=== PATIENT | female | born 1970 | race Caucasian/White ===

== ENCOUNTER 2017-10-18 16:01 | Emergency (ER) | payer BC ==
[~2017-10-18] VITALS: Ht 152.4 cm; Wt 104.3 kg
--- OUTSIDE RECORDS SUMMARY | ~2017-10-18 | XMS | Clinical Summary ---
Demographics + + + | Address | [address] | | | [place] [address] | + + + | Home Phone [...] Team Providers + +------+ + | Care Manager Green Name | Role | Phone | + +------+ + | Ashwini Ochoa NP | PP | Unavailable | + +------+ + Source Comments [facility] is fully live on both [facility] and [facility] Allergies + + + + + + | Active Allergy | Reactions | Severity | Noted | Comments | | | | | Date | | + + + + + + | Codeine | Nausea | | 09/21/19 | | | | | | 15 | | + + + + + + Current Medications + + +---------+---------+------+------+-------+ | Prescription | Sig. | Disp. | Refills | Star | End | Statu | | | | | | t | Date | s | | | | | | Date | | | + + +---------+---------+------+------+-------+ | ZIPRASIDONE 80 mg | Take 160 mg by mouth | | | 02/0 | | Activ | | oral capsule | once daily at | | | 5/20 | | e | | | bedtime. | | | 15 | | | + + +---------+---------+------+------+-------+ | TRAMADOL 50 mg | Take 50 mg by mouth | | | 02/1 | | Activ | | oral tablet | every six hours as | | | 6/20 | | e | | | needed. | | | 15 | | | + + +---------+---------+------+------+-------+ | TOPIRAMATE 25 mg | 50 mg two times | | | 02/0 | | Activ | | oral tablet | daily. 2 tabs=50 mg | | | 4/20 | | e | | | BID | | | 15 | | | + + +---------+---------+------+------+-------+ | LORAZEPAM 1 mg | Take 1 mg by mouth | | | 01/2 | | Activ | | oral tablet | every six hours as | | | 2/20 | | e | | | needed (as needed & | | | 15 | | | | | @ HS). | | | | | | + + +---------+---------+------+------+-------+ | LITHIUM CARBONATE | Take 600 mg by mouth | | | 12/3 | | Activ | | 300 mg oral capsule | once daily at | | | 0/20 | | e | | | bedtime. 2 zins=160 | | | 14 | | | | | mg | | | | | | + + +---------+---------+------+------+-------+ | LANSOPRAZOLE 30 mg | Take by mouth once | | | 02/0 | | Activ | | oral | daily at bedtime. | | | 3/20 | | e | | capsule,delayed | | | | 15 | | | | release(DR/EC) | | | | | | | + + +---------+---------+------+------+-------+ | ergocalciferol | Take 50,000 Units by | | | 10/3 | | Activ | | 50,000 unit oral | mouth once a week. | | | 0/20 | | e | | capsule | | | | 14 | | | + + +---------+---------+------+------+-------+ | gabapentin 300 mg | 900 mg once daily at | | | 11/2 | | Activ | | oral capsule | bedtime. | | | 0/20 | | e | | | | | | 14 | | | + + +---------+---------+------+------+-------+ | DULoxetine 60 mg | 60 mg once daily in | | | 11/2 | | Activ | | oral capsule,delayed | the morning. | | | 0/20 | | e | | release(DR/EC) | | | | 14 | | | + + +---------+---------+------+------+-------+ | buPROPion XL 300 | 300 mg once daily in | | | 11/2 | | Activ | | mg oral tablet | the morning. | | | 0/20 | | e | | extended release 24 | | | | 14 | | | | hr | | | | | | | + + +---------+---------+------+------+-------+ | Acetaminophen 500 | Take 500 mg by mouth | | | | | Activ | | mg oral capsule | every six hours as | | | | | e | | | needed. | | | | | | + + +---------+---------+------+------+-------+ | omeprazole | Take 20 mg by mouth | | | | | Activ | | magnesium (PRILOSEC | once daily in the | | | | | e | | OTC) 20 mg oral | morning. | | | | | | | tablet,delayed | | | | | | | | release (DR/EC) | | | | | | | + + +---------+---------+------+------+-------+ | | Take by mouth as | | | | | Activ | | ACETAMINOPHEN/PYRILA | needed. | | | | | e | | M/PAMABROM (PAMPRIN | | | | | | | | MULTI-SYMPTOM ORAL) | | | | | | | + + +---------+---------+------+------+-------+ | PEDIATRIC MULTIVIT | Take by mouth once | | | | | Activ | | COMB #19/FA | daily in the | | | | | e | | (CHILDREN'S | morning. | | | | | | | MULTI-VIT GUMMIES | | | | | | | | ORAL) | | | | | | | + + +---------+---------+------+------+-------+ | CA | Take by mouth three | | | | | Activ | | CARBONATE/VITAMIN | times daily. | | | | | e | | D3/VIT K (VIACTIV | | | | | | | | ORAL) | | | | | | | + + +---------+---------+------+------+-------+ | ASCORBIC ACID | Take by mouth once | | | | | Activ | | (VITAMIN C ORAL) | daily in the | | | | | e | | | morning. | | | | | | + + +---------+---------+------+------+-------+ | silver | Apply to affected | | | | | Activ | | sulfaDIAZINE [...] | | | | | + + +---------+---------+------+------+-------+ | celecoxib 200 mg | Take 1 capsule by | | | 03/2 | | Activ | | oral capsule | mouth once daily in | | | 04/21 | | e | | | the morning. May | | | 15 | | | | | resume 2 weeks after | | | | | | | | surgery | | | | | | + + +---------+---------+------+------+-------+ | senna-docusate | Take 1 tablet by | | | /2 | | Activ | | 8.6-50 mg oral | mouth two times | | | 04/21 | | e | | tabletIndications: | daily. Indications: | | | 15 | | | | constipation | CONSTIPATION | | | | | | + + +---------+---------+------+------+-------+ | polyethylene | Take 17 g by mouth | 119 g | | 03/2 | | Activ | | glycol 17 gram/dose | once daily as | | | 04/21 | | e | | oral | needed. Indications: | | | 15 | | | | powderIndications: | CONSTIPATION | | | | | | | constipation | | | | | | | + + +---------+---------+------+------+-------+ | dexamethasone 4 mg | Take 1 tablet by | 12 | 0 | 03/2 | | Activ | | oral tablet | mouth every six | tablet | | 20 | | e | | | hours. [...] | | | | | + + +---------+---------+------+------+-------+ | tiZANidine 2 mg | Take 1 tablet by | 60 | 0 | 03/2 | | Activ | | oral tablet | mouth three times | tablet | | 20 | | e | | | daily as needed. | | | 15 | | | | | Max: 36 mg / day. | | | | | | + + +---------+---------+------+------+-------+ | pantoprazole 20 mg | | | | 10/1 | | Activ | | oral tablet,delayed | | | | /20 | | e | | release (DR/EC) | | | | 15 | | | + + +---------+---------+------+------+-------+ | ZIPSOR 25 mg oral | | | | 11/0 | | Activ | | capsule | | | | 9/20 | | e | | | | | | 15 | | | + + +---------+---------+------+------+-------+ | cloNIDine HCl 0.1 | | | | 11/0 | | Activ | | mg oral tablet | | | | 6/20 | | e | | | | | | 15 | | | + + +---------+---------+------+------+-------+ | L-METHYLFOLATE 15 | | | | 10/0 | | Activ | | mg oral tablet | | | | 9/20 | | e | | | | | | 15 | | | + + +---------+---------+------+------+-------+ Active Problems + + + | Problem | Noted Date | + + + | Neoplasm of brain (HCC) | 08/20/2014 | + + + Social [...] Pressure | 153/98 | 06/14/2015 1:32 PM PST | + + + + | Pulse | 93 | 06/14/2015 1:32 PM PST | + + + + | Temperature | 36.4 C (97.6 F) | 06/14/2015 1:32 PM PST | + + + + | Respiratory Rate | 16 | 10/28/2014 8:33 AM PDT | + + + + | Oxygen Saturation | 100% | 10/28/2014 8:35 AM PDT | + + + + | Inhaled Oxygen | - | - | | Concentration | | | + + + + | Weight | 103.4 kg (227 lb | 06/14/2015 1:32 PM PST | | | 15.3 oz) | | + + + + | Height | 154.9 cm (5' 1") | 10/25/2014 5:00 AM PDT | + + + + | Body Mass Index | 43.07 | 06/14/2015 1:32 PM PST | + + + + Plan of Treatment + + + + + | Health Maintenance | Due Date | Last Done | Comments | + + + + + | INFLUENZA VACCINE | | | | | (FLU SHOT) | 7 | | | + + + + + Implants + +------+-------+ +--------+--------+--------+ | Implanted | Type | Area | Manufacture | Device | Expira | Model | | | | | r | | tion | / | | | | | | Identi | Date | Serial | | | | | | fier | | / Lot | + +------+-------+ +--------+--------+--------+ | Implant Duragen Suturable 3 X | | N/A: | INTEGRA | | 12/29/ | [id number] | | 3 - [id number]: Qty: | | Head | LIFESCIENCE | | 2017 | 91 / | | 1 on 2014 by Santos, | | | S | | | /[id number] | | MD Bart | | | | | | 70 | + +------+-------+ +--------+--------+--------+ | Mesh Contour [id number] | | N/A: | [employer] [place] | | | 04.503 | | Malleable Matrix Neuro - | | Head | | | | .083 / | | [id number]: Qty: 1 on | | | | [...] | | | | .104.0 | | [id number]: Qty: 6 on | | | | | | | | 2014 by Bart Graham, | | | | | | | | MD | | | | | | | + +------+-------+ +--------+--------+--------+ Results Not on filefrom Last 3 Months
--- OUTSIDE RECORDS SUMMARY | ~2017-10-18 | XMS ---
Demographics + + + | Address | [address] | | | [place] [address] | + + + | Preferred Language | Unknown | + + + | Marital Status | Unknown | + + + | Rastafari Affiliation | Unknown | + + + | Race | Unknown | + + + | Ethnic Group | Unknown | + + + Author + + + | Author | [facility] | + + + | Organization | [facility] | + + + | Address | [address] | | | [place] [address] | + + + | Phone | | + + + Care Team Providers + + + + | Care Assistant Softball Coach Name | Role | Phone | + + + + Unavailable | Unavailable | + + + + PROBLEMS +---------+ + + +--------+ + + | Type | Condition | ICD9-CM | [id number] | Onset | Condition | SNOMED | | | | Code | Code | Dates | Status | Code | +---------+ + + +--------+ + + | Problem | Degenerati | | M50.30 | | Active | 22869347 | | | ve disc | | | | | | | | disease, | | | | | | | | cervical | | | | | | +---------+ + + +--------+ + + | Problem | Diabetes | | E11.9 | | Active | 37152166 | | | mellitus | | | | | | +---------+ + + +--------+ + + | Problem | Restless | | G25.81 | | Active | 90872280 | | | leg | | | | | | | | syndrome | | | | | | +---------+ + + +--------+ + + | Problem | Diarrhea | | R19.7 | | Active | 10644534 | +---------+ + + +--------+ + + | Problem | Pain in | R10.9 | | | Active | 48445149 | | | the | | | | | | | | abdomen | | | | | | +---------+ + + +--------+ + + | Problem | Asthma | | J45.909 | | Active | 714715882 | +---------+ + + +--------+ + + | Problem | Hypertensi | | I10 | | Active | 67267409 | | | on | | | | | | +---------+ + + +--------+ + + | Problem | Hypertrigl | | E78.1 | | Active | 344326202 | | | yceridemia | | | | | | +---------+ + + +--------+ + + | Problem | Establishi | V65.8 | | | Active | | | | ng care | | | | | | | | with new | | | | | | | | doctor, | | | | | | | | encounter | | | | | | | | for | | | | | | +---------+ + + +--------+ + + | Problem | Obesity, | | E66.01 | | Active | 454815861 | | | morbid, | | | | | | | | BMI | | | | | | | | 40.0-49.9 | | | | | | +---------+ + + +--------+ + + | Problem | History of | Z87.891 | | | Active | 0916210739 | | | tobacco | | | | | 103 | | | use | | | | | | +---------+ + + +--------+ + + | Problem | History of | Z98.84 | | | Active | 351030343 | | | bariatric | | | | | | | | surgery | | | | | | +---------+ + + +--------+ + + | Problem | Brain | D49.6 | | | Active | 895006293 | | | tumor | | | | | | +---------+ + + +--------+ + + | Problem | Bipolar | F31.9 | | | Active | 17301535 | | | disorder | | | | | | +---------+ + + +--------+ + + | Problem | Arthritis | M19.90 | | | Active | 672848178 | | | of knee | | | | | | +---------+ + + +--------+ + + | Problem | Fusion of | | M43.22 | | Active | 046309053 | | | spine, | | | | | | | | cervical | | | | | | | | region | | | | | | +---------+ + + +--------+ + + | Problem | Migraine | G43.009 | | | Active | 677072668 | | | headache | | | | | | | | without | | | | | | | | aura | | | | | | +---------+ + + +--------+ + + ALLERGIES Unknown Allergies SOCIAL HISTORY No smoking Hx information available PLAN OF CARE VITAL SIGNS MEDICATIONS Unknown Medications RESULTS No Results PROCEDURES No Known procedures IMMUNIZATIONS No Known Immunizations"
--- OUTSIDE RECORDS SUMMARY | ~2017-10-18 | XMS ---
Demographics + + + | Address | [address] | | | [place] [address] | + + + | Preferred Language | Unknown | + + + | Marital Status | Unknown | + + + | Zoroastrian Affiliation | Unknown | + + + | Race | Unknown | + + + | Ethnic Group | Unknown | + + + Author + + + | Author | [facility] | + + + | Organization | [facility] | + + + | Address | [address] | | | [place] [address] | + + + | Phone | | + + + Care Team Providers + + + + | Care Lime Boiler Name | Role | Phone | + + + + Unavailable | Unavailable | + + + + PROBLEMS +---------+ + + +--------+ + + | Type | Condition | ICD9-CM | [id number] | Onset | Condition | SNOMED | | | | Code | Code | Dates | Status | Code | +---------+ + + +--------+ + + | Problem | Degenerati | | M50.30 | | Active | 05335774 | | | ve disc | | | | | | | | disease, | | | | | | | | cervical | | | | | | +---------+ + + +--------+ + + | Problem | Diabetes | | E11.9 | | Active | 08717956 | | | mellitus | | | | | | +---------+ + + +--------+ + + | Problem | Restless | | G25.81 | | Active | 55658876 | | | leg | | | | | | | | syndrome | | | | | | +---------+ + + +--------+ + + | Problem | Diarrhea | | R19.7 | | Active | 19746565 | +---------+ + + +--------+ + + | Problem | Pain in | R10.9 | | | Active | 91702173 | | | the | | | | | | | | abdomen | | | | | | +---------+ + + +--------+ + + | Problem | Asthma | | J45.909 | | Active | 840257202 | +---------+ + + +--------+ + + | Problem | Hypertensi | | I10 | | Active | 24391159 | | | on | | | | | | +---------+ + + +--------+ + + | Problem | Hypertrigl | | E78.1 | | Active | 298119851 | | | yceridemia | | | [...] | | E66.01 | | Active | 691029195 | | | morbid, | | | | | | | | BMI | | | | | | | | 40.0-49.9 | | | | | | +---------+ + + +--------+ + + | Problem | History of | Z87.891 | | | Active | 5088592905 | | | tobacco | | | | | 103 | | | use | | | | | | +---------+ + + +--------+ + + | Problem | History of | Z98.84 | | | Active | 171753588 | | | bariatric | | | | | | | | surgery | | | | | | +---------+ + + +--------+ + + | Problem | Brain | D49.6 | | | Active | 300122717 | | | tumor | | | | | | +---------+ + + +--------+ + + | Problem | Bipolar | F31.9 | | | Active | 18960648 | | | disorder | | | | | | +---------+ + + +--------+ + + | Problem | Arthritis | M19.90 | | | Active | 435078740 | | | of knee | | | | | | +---------+ + + +--------+ + + | Problem | Fusion of | | M43.22 | | Active | 160851900 | | | spine, | | | | | | | | cervical | | | | | | | | region | | | | | | +---------+ + + +--------+ + + | Problem | Migraine | G43.009 | | | Active | 358632534 | | | headache | | | | | | | | without | | | | | | | | aura | | | | | | +---------+ + + +--------+ + + ALLERGIES + + + + +--------+ | Substance | Reaction | Event Type | Date | Status | + + + + +--------+ | Codeine | vomit | Drug Allergy | Mar, | Active | + + + + +--------+ | Zinc | felt drunk | Drug Allergy | Mar, | Active | + + + + +--------+ | Percocet | vomiting | Drug Allergy | Mar, | Active | + + + + +--------+ SOCIAL HISTORY No smoking Hx information available PLAN OF CARE + +---------+ | Activity | Details | + +---------+ +---+ | | +---+ + + + | Follow Up | [address] Argueta Reason:null | + + + VITAL SIGNS + + + + | Height | 61 in | 2017-03-02 | + + + + | Weight | 231.4 lbs | 2017-03-02 | + + + + | BMI | 43.72 kg/m2 | 2017-03-02 | + + + + | Temperature | 98.7 degrees Fahrenheit | 2017-03-02 | + + + + | Heart Rate | 91 /min | 2017-03-02 | + + + + | Blood pressure systolic | 147 mm Hg | 2017-03-02 | + + + + | Blood pressure diastolic | 90 mm Hg | 2017-03-02 | + + + + MEDICATIONS + + + + + + + +--------+ | Medicati | Instruct | Dosage | Frequenc | Start | End Date | Duration | Status | | on | ions | | y | Date | | | | + + + + + + + +--------+ | Pamprin | Orally | 2 | 6h | | | | Active | | Max | every 6 | tablets | | | | | | | | hrs | as | | | | | | | | | needed | | | | | | + + + + + + + +--------+ | Extra | Orally | 1 | 6h | | | | Active | | Strength | every 6 | capsule | | | | | | | | hrs | as | | | | | | | Acetamin | | needed | | | | | | | ophen 0 | | | | | | | | + + + + + + + +--------+ | Diazepam | | | | | | | Active | | 5 MG | | | | | | | | + + + + + + + +--------+ | Ventolin | Inhalati | 2 puffs | | 05 Sonido, | | 1 Month | Active | | HFA 108 | on every | as | | 2016 | | | | | (90 | 4 hrs | needed | | | | | | | Base) | prn | | | | | | | | MCG/ACT | SOB/Whee | | | | | | | | | ze/Cough | | | | | | | + + + + + + + +--------+ | Gabapent | Orally | as | 8h | 05 Sonido, | | 30 | Active | | in 300 | tid | directed | | 2017 | | day(s) | | | MG | | | | | | | | + + + + + + + +--------+ | Sumatrip | Orally | 1 tablet | | | | 30 | Active | | kruse | as | as | | | | day(s) | | | Succinat | needed | needed | | | | | | | e 50 mg | | | | | | | | + + + + + + + +--------+ | HydrOXYz | Orally | 1 tablet | | 05 Sonido, | | 30 | Active | | ine HCl | qhs | as | | 2017 | | day(s) | | | 25 MG | | needed | | | | | | + + + + + + + +--------+ | HCTZ 25 | p.o. one | as | | 05 Dec, | Mar, | 30 | Active | | MG | time | directed | | 2016 | 2016 | day(s) | | | | daily in | | | | | | | | | am | | | | | | | + + + + + + + +--------+ RESULTS No Results PROCEDURES + + + + + | Procedure | Date Ordered | Related Diagnosis | Body Site | + + + + + | Est Level IV | Mar 02, 2017 | | | | Extended | | | | + + + + + IMMUNIZATIONS No Known Immunizations"
--- OUTSIDE RECORDS SUMMARY | ~2017-10-18 | XMS ---
Demographics + + + | Address | [address] | | | [place] [address] | + + + | Preferred Language [...] + + + | Organization | [facility] | + + + | Address | [address] | | | [place] [address] | + + + | Phone | | + + + Care Team Providers + + + + | Care Metal Patternmaker Apprentice Name | Role | Phone | + + + + Unavailable | Unavailable | + + + + PROBLEMS +---------+ + + +--------+ + + | Type | Condition | ICD9-CM | [id number] | Onset | Condition | SNOMED | | | | Code | Code | Dates | Status | Code | +---------+ + + +--------+ + + | Problem | Degenerati | | M50.30 | | Active | 07232258 | | | ve disc | | | | | | | | disease, | | | | | | | | cervical | | | | | | +---------+ + + +--------+ + + | Problem | Diabetes | | E11.9 | | Active | 22542799 | | | mellitus | | | | | | +---------+ + + +--------+ + + | Problem | Restless | | G25.81 | | Active | 53009046 | | | leg | | | | | | | | syndrome | | | | | | +---------+ + + +--------+ + + | Problem | Diarrhea | | R19.7 | | Active | 52628902 | +---------+ + + +--------+ + + | Problem | Pain in | R10.9 | | | Active | 63608837 | | | the | | | | | | | | abdomen | | | | | | +---------+ + + +--------+ + + | Problem | Asthma | | J45.909 | | Active | 605455405 | +---------+ + + +--------+ + + | Problem | Hypertensi | | I10 | | Active | 10833571 | | | on | | | | | | +---------+ + + +--------+ + + | Problem | Hypertrigl | | E78.1 | | Active | 578614702 | | | yceridemia | | | [...] | | E66.01 | | Active | 172059149 | | | morbid, | | | | | | | | BMI | | | | | | | | 40.0-49.9 | | | | | | +---------+ + + +--------+ + + | Problem | History of | Z87.891 | | | Active | 3995352273 | | | tobacco | | | | | 103 | | | use | | | | | | +---------+ + + +--------+ + + | Problem | History of | Z98.84 | | | Active | 862830790 | | | bariatric | | | | | | | | surgery | | | | | | +---------+ + + +--------+ + + | Problem | Brain | D49.6 | | | Active | 299280532 | | | tumor | | | | | | +---------+ + + +--------+ + + | Problem | Bipolar | F31.9 | | | Active | 73582594 | | | disorder | | | | | | +---------+ + + +--------+ + + | Problem | Arthritis | M19.90 | | | Active | 326284141 | | | of knee | | | | | | +---------+ + + +--------+ + + | Problem | Fusion of | | M43.22 | | Active | 234751398 | | | spine, | | | | | | | | cervical | | | | | | | | region | | | | | | +---------+ + + +--------+ + + | Problem | Migraine | G43.009 | | | Active | 155474569 | | | headache | | | [...]
--- OUTSIDE RECORDS SUMMARY | ~2017-10-18 | XMS ---
Demographics + + + | Address | [address] | | | [place] [address] | + + + | Preferred Language | Unknown | + + + | Marital Status | Unknown | + + + | Mosque Affiliation | Unknown | + + + | Race | Unknown | + + + | Ethnic Group | Unknown | + + + Author + + + | Author | [facility] | + + + | Organization | [facility] | + + + | Address | [address] | | | [place] [address] | + + + | Phone | | + + + Care Team Providers + + + + | Care Oil Expeller Operator Name | Role | Phone | + + + + Unavailable | Unavailable | + + + + PROBLEMS +---------+ + + +--------+ + + | Type | Condition | ICD9-CM | [id number] | Onset | Condition | SNOMED | | | | Code | Code | Dates | Status | Code | +---------+ + + +--------+ + + | Problem | Degenerati | | M50.30 | | Active | 02825833 | | | ve disc | | | | | | | | disease, | | | | | | | | cervical | | | | | | +---------+ + + +--------+ + + | Problem | Diabetes | | E11.9 | | Active | 70587268 | | | mellitus | | | | | | +---------+ + + +--------+ + + | Problem | Restless | | G25.81 | | Active | 36479233 | | | leg | | | | | | | | syndrome | | | | | | +---------+ + + +--------+ + + | Problem | Diarrhea | | R19.7 | | Active | 52967199 | +---------+ + + +--------+ + + | Problem | Pain in | R10.9 | | | Active | 82238017 | | | the | | | | | | | | abdomen | | | | | | +---------+ + + +--------+ + + | Problem | Asthma | | J45.909 | | Active | 095598790 | +---------+ + + +--------+ + + | Problem | Hypertensi | | I10 | | Active | 13422494 | | | on | | | | | | +---------+ + + +--------+ + + | Problem | Hypertrigl | | E78.1 | | Active | 128420051 | | | yceridemia | | | [...] | | E66.01 | | Active | 418790362 | | | morbid, | | | | | | | | BMI | | | | | | | | 40.0-49.9 | | | | | | +---------+ + + +--------+ + + | Problem | History of | Z87.891 | | | Active | 2159937001 | | | tobacco | | | | | 103 | | | use | | | | | | +---------+ + + +--------+ + + | Problem | History of | Z98.84 | | | Active | 490623256 | | | bariatric | | | | | | | | surgery | | | | | | +---------+ + + +--------+ + + | Problem | Brain | D49.6 | | | Active | 217404721 | | | tumor | | | | | | +---------+ + + +--------+ + + | Problem | Bipolar | F31.9 | | | Active | 79096741 | | | disorder | | | | | | +---------+ + + +--------+ + + | Problem | Arthritis | M19.90 | | | Active | 473944128 | | | of knee | | | | | | +---------+ + + +--------+ + + | Problem | Fusion of | | M43.22 | | Active | 181885946 | | | spine, | | | | | | | | cervical | | | | | | | | region | | | | | | +---------+ + + +--------+ + + | Problem | Migraine | G43.009 | | | Active | 699256655 | | | headache | | | | | | | | without | | | | | | | | aura | | | | | | +---------+ + + +--------+ + + ALLERGIES Unknown Allergies SOCIAL HISTORY No smoking Hx information available PLAN OF CARE VITAL SIGNS MEDICATIONS + + + + +--------+ + +--------+ | Medicati | Instruct | Dosage | Frequenc | Start | End Date | Duration | Status | | on | ions | | y | Date | | | | + + + + +--------+ + +--------+ | Sumatrip | Orally | 1 tablet | | | | 30 | Active | | kruse | as | as | | | | day(s) | | | Succinat | needed | needed | | | | | | | e 50 mg | | | | | | | | + + + + +--------+ + +--------+ RESULTS No Results PROCEDURES No Known procedures IMMUNIZATIONS No Known Immunizations"
--- OUTSIDE RECORDS SUMMARY | ~2017-10-18 | XMS ---
Demographics + + + | Address | [address] | | | [place] [address] | + + + | Preferred Language | Unknown | + + + | Marital Status | Unknown | + + + | Pentecostalism Affiliation | Unknown | + + + | Race | Unknown | + + + | Ethnic Group | Unknown | + + + Author + + + | Author | [facility] | + + + | Organization | [facility] | + + + | Address | [address] | | | [place] [address] | + + + | Phone | | + + + Care Team Providers + + + + | Care Critical Care Physician Name | Role | Phone | + + + + Unavailable | Unavailable | + + + + PROBLEMS +---------+ + + +--------+ + + | Type | Condition | ICD9-CM | [id number] | Onset | Condition | SNOMED | | | | Code | Code | Dates | Status | Code | +---------+ + + +--------+ + + | Problem | Degenerati | | M50.30 | | Active | 63477967 | | | ve disc | | | | | | | | disease, | | | | | | | | cervical | | | | | | +---------+ + + +--------+ + + | Problem | Diabetes | | E11.9 | | Active | 59938778 | | | mellitus | | | | | | +---------+ + + +--------+ + + | Problem | Restless | | G25.81 | | Active | 88127065 | | | leg | | | | | | | | syndrome | | | | | | +---------+ + + +--------+ + + | Problem | Diarrhea | | R19.7 | | Active | 03543015 | +---------+ + + +--------+ + + | Problem | Pain in | R10.9 | | | Active | 62805934 | | | the | | | | | | | | abdomen | | | | | | +---------+ + + +--------+ + + | Problem | Asthma | | J45.909 | | Active | 974837014 | +---------+ + + +--------+ + + | Problem | Hypertensi | | I10 | | Active | 02215107 | | | on | | | | | | +---------+ + + +--------+ + + | Problem | Hypertrigl | | E78.1 | | Active | 476465868 | | | yceridemia | | | [...] | | E66.01 | | Active | 492723403 | | | morbid, | | | | | | | | BMI | | | | | | | | 40.0-49.9 | | | | | | +---------+ + + +--------+ + + | Problem | History of | Z87.891 | | | Active | 7468241076 | | | tobacco | | | | | 103 | | | use | | | | | | +---------+ + + +--------+ + + | Problem | History of | Z98.84 | | | Active | 687936676 | | | bariatric | | | | | | | | surgery | | | | | | +---------+ + + +--------+ + + | Problem | Brain | D49.6 | | | Active | 311882108 | | | tumor | | | | | | +---------+ + + +--------+ + + | Problem | Bipolar | F31.9 | | | Active | 38938164 | | | disorder | | | | | | +---------+ + + +--------+ + + | Problem | Arthritis | M19.90 | | | Active | 549709325 | | | of knee | | | | | | +---------+ + + +--------+ + + | Problem | Fusion of | | M43.22 | | Active | 813339792 | | | spine, | | | | | | | | cervical | | | | | | | | region | | | | | | +---------+ + + +--------+ + + | Problem | Migraine | G43.009 | | | Active | 501362693 | | | headache | | | [...]
--- OUTSIDE RECORDS SUMMARY | ~2017-10-18 | XMS ---
Demographics + + + | Address | [address] | | | [place] [address] | + + + | Preferred Language | Unknown | + + + | Marital Status | Unknown | + + + | Adventism Affiliation | Unknown | + + + | Race | Unknown | + + + | Ethnic Group | Unknown | + + + Author + + + | Author | [facility] | + + + | Organization | [facility] | + + + | Address | [address] | | | [place] [address] | + + + | Phone | | + + + Care Team Providers + + + + | Care Staffing Program Manager Name | Role | Phone | + + + + Unavailable | Unavailable | + + + + PROBLEMS +---------+ + + +--------+ + + | Type | Condition | ICD9-CM | [id number] | Onset | Condition | SNOMED | | | | Code | Code | Dates | Status | Code | +---------+ + + +--------+ + + | Problem | Degenerati | | M50.30 | | Active | 57602199 | | | ve disc | | | | | | | | disease, | | | | | | | | cervical | | | | | | +---------+ + + +--------+ + + | Problem | Diabetes | | E11.9 | | Active | 53240529 | | | mellitus | | | | | | +---------+ + + +--------+ + + | Problem | Restless | | G25.81 | | Active | 77267001 | | | leg | | | | | | | | syndrome | | | | | | +---------+ + + +--------+ + + | Problem | Diarrhea | | R19.7 | | Active | 99956789 | +---------+ + + +--------+ + + | Problem | Pain in | R10.9 | | | Active | 49349744 | | | the | | | | | | | | abdomen | | | | | | +---------+ + + +--------+ + + | Problem | Asthma | | J45.909 | | Active | 044377242 | +---------+ + + +--------+ + + | Problem | Hypertensi | | I10 | | Active | 23616306 | | | on | | | | | | +---------+ + + +--------+ + + | Problem | Hypertrigl | | E78.1 | | Active | 075562399 | | | yceridemia | | | [...] | | E66.01 | | Active | 422621969 | | | morbid, | | | | | | | | BMI | | | | | | | | 40.0-49.9 | | | | | | +---------+ + + +--------+ + + | Problem | History of | Z87.891 | | | Active | 9427900582 | | | tobacco | | | | | 103 | | | use | | | | | | +---------+ + + +--------+ + + | Problem | History of | Z98.84 | | | Active | 755421330 | | | bariatric | | | | | | | | surgery | | | | | | +---------+ + + +--------+ + + | Problem | Brain | D49.6 | | | Active | 562360113 | | | tumor | | | | | | +---------+ + + +--------+ + + | Problem | Bipolar | F31.9 | | | Active | 43309166 | | | disorder | | | | | | +---------+ + + +--------+ + + | Problem | Arthritis | M19.90 | | | Active | 463260468 | | | of knee | | | | | | +---------+ + + +--------+ + + | Problem | Fusion of | | M43.22 | | Active | 766937602 | | | spine, | | | | | | | | cervical | | | | | | | | region | | | | | | +---------+ + + +--------+ + + | Problem | Migraine | G43.009 | | | Active | 416862553 | | | headache | | | [...] Codeine | vomit | Drug Allergy | Apr, | Active | + + + + +--------+ | Zinc | felt drunk | Drug Allergy | Apr, | Active | + + + + +--------+ | Percocet | vomiting | Drug Allergy | Apr, | Active | + + + + +--------+ SOCIAL HISTORY No smoking Hx information available PLAN OF CARE + +---------+ | Activity | Details | + +---------+ +---+ | | +---+ + + + | Follow Up | prn Reason:null | + + + VITAL SIGNS + + + + | Height | 61 in | 2017-04-16 | + + + + | Weight | 225 lbs | 2017-04-16 | + + + + | BMI | 42.51 kg/m2 | 2017-04-16 | + + + + | Temperature | 98.2 degrees Fahrenheit | 2017-04-16 | + + + + | Heart Rate | 89 /min | 2017-04-16 | + + + + | Blood pressure systolic | 171 mm Hg | 2017-04-16 | + + + + | Blood pressure diastolic | 128 mm Hg | 2017-04-16 | + + + + MEDICATIONS + [...] | Orally | 1 tablet | | Dec, | | 30 | Active | | ine HCl | qhs | as | | 2017 | | day(s) | | | 25 MG | | needed | | | | | | + + + + + + + +--------+ | Cinnamon | Orally | as | | Mar, | 26 Aug, | 30 | Active | | Plus | one time | directed | | 2017 | 2018 | day(s) | | | Chromium | daily | | | | | | | | | in am | | | | | | | | 200-1000 | | | | | | | | | MCG-MG | | | | | | | [...] | on every | as | | 2017 | | | | | (90 | 4 hrs | needed | | | | | | | Base) | prn | | | | | | | | MCG/ACT | SOB/Whee | | | | | | | | | ze/Cough | | | | | | | + + + + + + + +--------+ | Tramadol | Orally | 1 tablet | 6h | | | | Active | | HCl 50 | every 6 | as | | | | | | | MG | hrs | needed | | | | [...] + +--------+ | HCTZ 25 | p.o. as | as | | Mar, | Aug, | 30 | Active | | MG | directed | directed | | 2017 | 2018 | day(s) | | + + + + + [...] | + + + + + | INJ KETOROLAC | Apr 16, 2017 | | | | TROMETHAMINE 15 MG | | | | + + + + + | INJECTION | Apr 16, 2017 | | | | ADMINISTRATION | | | | + + + + + | DSCHRG MED/CURRENT | Apr 16, 2017 | | | | MED MERGE | | | | + + + + + | Est Level III | Apr 16, 2017 | | | | Intermediate | | | | + + + + + | DOC MEDS VERIFIED | Apr 16, 2017 | | | | W/PT OR RE | | | | + + + + + IMMUNIZATIONS + + + + + | Vaccine | Route | Administration Date | Status | + + + + + | Ketorolac 30mg | IM Intramuscular | Apr 16, 2017 | Administered | + + + + +"
--- OUTSIDE RECORDS SUMMARY | ~2017-10-18 | XMS ---
Demographics + + + | Address | [address] | | | [place] [address] | + + + | Preferred Language | Unknown | + + + | Marital Status | Unknown | + + + | Anabaptism Affiliation | Unknown | + + + | Race | Unknown | + + + | Ethnic Group | Unknown | + + + Author + + + | Author | [facility] | + + + | Organization | [facility] | + + + | Address | [address] | | | [place] [address] | + + + | Phone | | + + + Care Team Providers + + + + | Care Rug Shampooer Name | Role | Phone | + + + + Unavailable | Unavailable | + + + + PROBLEMS +---------+ + + +--------+ + + | Type | Condition | ICD9-CM | [id number] | Onset | Condition | SNOMED | | | | Code | Code | Dates | Status | Code | +---------+ + + +--------+ + + | Problem | Degenerati | | M50.30 | | Active | 50690157 | | | ve disc | | | | | | | | disease, | | | | | | | | cervical | | | | | | +---------+ + + +--------+ + + | Problem | Diabetes | | E11.9 | | Active | 86660714 | | | mellitus | | | | | | +---------+ + + +--------+ + + | Problem | Restless | | G25.81 | | Active | 30186545 | | | leg | | | | | | | | syndrome | | | | | | +---------+ + + +--------+ + + | Problem | Diarrhea | | R19.7 | | Active | 37514599 | +---------+ + + +--------+ + + | Problem | Pain in | R10.9 | | | Active | 81259378 | | | the | | | | | | | | abdomen | | | | | | +---------+ + + +--------+ + + | Problem | Asthma | | J45.909 | | Active | 723865462 | +---------+ + + +--------+ + + | Problem | Hypertensi | | I10 | | Active | 51378450 | | | on | | | | | | +---------+ + + +--------+ + + | Problem | Hypertrigl | | E78.1 | | Active | 625188971 | | | yceridemia | | | [...] | | E66.01 | | Active | 575828633 | | | morbid, | | | | | | | | BMI | | | | | | | | 40.0-49.9 | | | | | | +---------+ + + +--------+ + + | Problem | History of | Z87.891 | | | Active | 0868980386 | | | tobacco | | | | | 103 | | | use | | | | | | +---------+ + + +--------+ + + | Problem | History of | Z98.84 | | | Active | 353670347 | | | bariatric | | | | | | | | surgery | | | | | | +---------+ + + +--------+ + + | Problem | Brain | D49.6 | | | Active | 341846062 | | | tumor | | | | | | +---------+ + + +--------+ + + | Problem | Bipolar | F31.9 | | | Active | 65523566 | | | disorder | | | | | | +---------+ + + +--------+ + + | Problem | Arthritis | M19.90 | | | Active | 320401033 | | | of knee | | | | | | +---------+ + + +--------+ + + | Problem | Fusion of | | M43.22 | | Active | 062332382 | | | spine, | | | | | | | | cervical | | | | | | | | region | | | | | | +---------+ + + +--------+ + + | Problem | Migraine | G43.009 | | | Active | 657778351 | | | headache | | | [...] Codeine | vomit | Drug Allergy | Dec, | Active | + + + + +--------+ | Zinc | felt drunk | Drug Allergy | Dec, | Active | + + + + +--------+ | Percocet | vomiting | Drug Allergy | Dec, | Active | + + + + +--------+ SOCIAL HISTORY No smoking Hx information available PLAN OF CARE + +---------+ | Activity | Details | + +---------+ +---+ | | +---+ + + + | Follow Up | [address] Argueta Reason:null | + + + | Pending Test | H pylori, IgM, IgG, IgA Ab | + + + | Pending Test | CBC | + + + VITAL SIGNS + + + + | Height | 61 in | 2017-01-18 | + + + + | Weight | 238.8 lbs | 2017-01-18 | + + + + | BMI | 45.12 kg/m2 | 2017-01-18 | + + + + | Temperature | 98.5 degrees Fahrenheit | 2017-01-18 | + + + + | Heart Rate | 102 /min | 2017-01-18 | + + + + | Blood pressure systolic | 160 mm Hg | 2017-01-18 | + + + + | Blood pressure diastolic | 108 mm Hg | 2017-01-18 | + + + + MEDICATIONS + [...] 1 tablet | | | | | Active | | kruse | as | as | | | | | | | Succinat | needed | needed | | | | | | | e 50 MG | | | | | | | | + + + + + + + +--------+ | Gabapent | Orally | as | 8h | 05 Sonido, | | 30 | Active | | in 300 | tid | directed | | 2016 | | day(s) | | | MG [...] | as | | 05 Dec, | 4 Mar, | 30 | Active | | [...] HCl | qhs | as | | 2016 | | day(s) | | | 25 MG | | needed | | | | | | + + + + + + + +--------+ RESULTS + +--------+------+ + | Name | Result | Date | Reference Range | + +--------+------+ + | Stool Culture -O&P | | | | + +--------+------+ + PROCEDURES + + + + + | Procedure | Date Ordered | Related Diagnosis | Body Site | + + + + + | LDL-C 100-129 MG/DL | January 18, 2017 | | | + + + + + | LDL-C <100 MG/DL | January 18, 2017 | | | + + + + + | Est Level III | January 18, 2017 | | | | Intermediate | | | | + + + + + IMMUNIZATIONS No Known Immunizations"
--- OUTSIDE RECORDS SUMMARY | ~2017-10-18 | XMS ---
Demographics + + + | Address | [address] | | | [place] [address] | + + + | Preferred Language | Unknown | + + + | Marital Status | Unknown | + + + | Hoahaoism Affiliation | Unknown | + + + | Race | Unknown | + + + | Ethnic Group | Unknown | + + + Author + + + | Author | [facility] | + + + | Organization | [facility] | + + + | Address | [address] | | | [place] [address] | + + + | Phone | | + + + Care Team Providers + + + + | Care Slitter Scorer Cut Off Operator Name | Role | Phone | + + + + Unavailable | Unavailable | + + + + PROBLEMS +---------+ + + +--------+ + + | Type | Condition | ICD9-CM | [id number] | Onset | Condition | SNOMED | | | | Code | Code | Dates | Status | Code | +---------+ + + +--------+ + + | Problem | Degenerati | | M50.30 | | Active | 35434102 | | | ve disc | | | | | | | | disease, | | | | | | | | cervical | | | | | | +---------+ + + +--------+ + + | Problem | Diabetes | | E11.9 | | Active | 70120595 | | | mellitus | | | | | | +---------+ + + +--------+ + + | Problem | Restless | | G25.81 | | Active | 76322109 | | | leg | | | | | | | | syndrome | | | | | | +---------+ + + +--------+ + + | Problem | Diarrhea | | R19.7 | | Active | 89957796 | +---------+ + + +--------+ + + | Problem | Pain in | R10.9 | | | Active | 71481415 | | | the | | | | | | | | abdomen | | | | | | +---------+ + + +--------+ + + | Problem | Asthma | | J45.909 | | Active | 760787580 | +---------+ + + +--------+ + + | Problem | Hypertensi | | I10 | | Active | 02665067 | | | on | | | | | | +---------+ + + +--------+ + + | Problem | Hypertrigl | | E78.1 | | Active | 952161320 | | | yceridemia | | | [...] | | E66.01 | | Active | 665105917 | | | morbid, | | | | | | | | BMI | | | | | | | | 40.0-49.9 | | | | | | +---------+ + + +--------+ + + | Problem | History of | Z87.891 | | | Active | 0452693328 | | | tobacco | | | | | 103 | | | use | | | | | | +---------+ + + +--------+ + + | Problem | History of | Z98.84 | | | Active | 664476410 | | | bariatric | | | | | | | | surgery | | | | | | +---------+ + + +--------+ + + | Problem | Brain | D49.6 | | | Active | 439051441 | | | tumor | | | | | | +---------+ + + +--------+ + + | Problem | Bipolar | F31.9 | | | Active | 63311007 | | | disorder | | | | | | +---------+ + + +--------+ + + | Problem | Arthritis | M19.90 | | | Active | 273983273 | | | of knee | | | | | | +---------+ + + +--------+ + + | Problem | Fusion of | | M43.22 | | Active | 410294180 | | | spine, | | | | | | | | cervical | | | | | | | | region | | | | | | +---------+ + + +--------+ + + | Problem | Migraine | G43.009 | | | Active | 248074321 | | | headache | | | [...]
--- OUTSIDE RECORDS SUMMARY | ~2017-10-18 | XMS | Clinical Summary ---
Demographics + + + | Address | [address] | | | [place] [address] | + + + | Home Phone [...] Team Providers + +------+ + | Care Byproducts Extractor Name | Role | Phone | + +------+ + | Ashwini Ochoa NP | PP | Unavailable | + +------+ + Source Comments MYRIAM is fully live on both [facility] and [facility] InPatient.[facility] Allergies + + + + + [...] | e | | | bedtime. 2 pvgt=849 | | | 14 | | | [...] 12/29/ | [id number] | | 3 - [id number]: Qty: | | Head | LIFESCIENCE | | 2017 | 91 / | | 1 on 2014 by Santos, | | | S | | | /[address] | | MD Bart | | | | | | 70 | + +------+-------+ +--------+--------+--------+ | Mesh Contour [id number] | | N/A: | [employer] [place] | | | 04.503 | | Malleable Matrix Neuro - | | Head | | | | .083 / | | [id number]: Qty: 1 on | | | | [...] | | | | .104.0 | | [id number]: Qty: 6 on | | | | | | | | 2014 by Bart Graham, | | | | | | | | MD | | | | | | | + +------+-------+ +--------+--------+--------+ Results Not on filefrom Last 3 Months
--- OUTSIDE RECORDS SUMMARY | ~2017-10-18 | XMS ---
Demographics + + + | Address | [address] | | | [place] [address] | + + + | Preferred Language | Unknown | + + + | Marital Status | Unknown | + + + | Faith Affiliation | Unknown | + + + | Race | Unknown | + + + | Ethnic Group | Unknown | + + + Author + + + | Author | [facility] | + + + | Organization | [facility] | + + + | Address | [address] | | | [place] [address] | + + + | Phone | | + + + Care Team Providers + + + + | Care Janitor Name | Role | Phone | + + + + Unavailable | Unavailable | + + + + PROBLEMS +---------+ + + +--------+ + + | Type | Condition | ICD9-CM | [id number] | Onset | Condition | SNOMED | | | | Code | Code | Dates | Status | Code | +---------+ + + +--------+ + + | Problem | Degenerati | | M50.30 | | Active | 41150132 | | | ve disc | | | | | | | | disease, | | | | | | | | cervical | | | | | | +---------+ + + +--------+ + + | Problem | Diabetes | | E11.9 | | Active | 52686497 | | | mellitus | | | | | | +---------+ + + +--------+ + + | Problem | Restless | | G25.81 | | Active | 28390742 | | | leg | | | | | | | | syndrome | | | | | | +---------+ + + +--------+ + + | Problem | Diarrhea | | R19.7 | | Active | 09970594 | +---------+ + + +--------+ + + | Problem | Pain in | R10.9 | | | Active | 92241601 | | | the | | | | | | | | abdomen | | | | | | +---------+ + + +--------+ + + | Problem | Asthma | | J45.909 | | Active | 935487498 | +---------+ + + +--------+ + + | Problem | Hypertensi | | I10 | | Active | 57933334 | | | on | | | | | | +---------+ + + +--------+ + + | Problem | Hypertrigl | | E78.1 | | Active | 520134901 | | | yceridemia | | | [...] | | E66.01 | | Active | 900920569 | | | morbid, | | | | | | | | BMI | | | | | | | | 40.0-49.9 | | | | | | +---------+ + + +--------+ + + | Problem | History of | Z87.891 | | | Active | 3141536579 | | | tobacco | | | | | 103 | | | use | | | | | | +---------+ + + +--------+ + + | Problem | History of | Z98.84 | | | Active | 914274384 | | | bariatric | | | | | | | | surgery | | | | | | +---------+ + + +--------+ + + | Problem | Brain | D49.6 | | | Active | 758773522 | | | tumor | | | | | | +---------+ + + +--------+ + + | Problem | Bipolar | F31.9 | | | Active | 61699739 | | | disorder | | | | | | +---------+ + + +--------+ + + | Problem | Arthritis | M19.90 | | | Active | 762582808 | | | of knee | | | | | | +---------+ + + +--------+ + + | Problem | Fusion of | | M43.22 | | Active | 033399577 | | | spine, | | | | | | | | cervical | | | | | | | | region | | | | | | +---------+ + + +--------+ + + | Problem | Migraine | G43.009 | | | Active | 026818038 | | | headache | | | [...]
--- OUTSIDE RECORDS SUMMARY | ~2017-10-18 | XMS ---
Demographics + + + | Address | [address] | | | [place] [address] | + + + | Preferred Language | Unknown | + + + | Marital Status | Unknown | + + + | Baptist Affiliation | Unknown | + + + | Race | Unknown | + + + | Ethnic Group | Unknown | + + + Author + + + | Author | [facility] | + + + | Organization | [facility] | + + + | Address | [address] | | | [place] [address] | + + + | Phone | | + + + Care Team Providers + + + + | Care Expert Witness Name | Role | Phone | + + + + Unavailable | Unavailable | + + + + PROBLEMS +---------+ + + +--------+ + + | Type | Condition | ICD9-CM | [id number] | Onset | Condition | SNOMED | | | | Code | Code | Dates | Status | Code | +---------+ + + +--------+ + + | Problem | Degenerati | | M50.30 | | Active | 31197110 | | | ve disc | | | | | | | | disease, | | | | | | | | cervical | | | | | | +---------+ + + +--------+ + + | Problem | Diabetes | | E11.9 | | Active | 39269825 | | | mellitus | | | | | | +---------+ + + +--------+ + + | Problem | Restless | | G25.81 | | Active | 04915764 | | | leg | | | | | | | | syndrome | | | | | | +---------+ + + +--------+ + + | Problem | Diarrhea | | R19.7 | | Active | 46960288 | +---------+ + + +--------+ + + | Problem | Pain in | R10.9 | | | Active | 77750490 | | | the | | | | | | | | abdomen | | | | | | +---------+ + + +--------+ + + | Problem | Asthma | | J45.909 | | Active | 488879904 | +---------+ + + +--------+ + + | Problem | Hypertensi | | I10 | | Active | 68096112 | | | on | | | | | | +---------+ + + +--------+ + + | Problem | Hypertrigl | | E78.1 | | Active | 328266089 | | | yceridemia | | | [...] | | E66.01 | | Active | 746853950 | | | morbid, | | | | | | | | BMI | | | | | | | | 40.0-49.9 | | | | | | +---------+ + + +--------+ + + | Problem | History of | Z87.891 | | | Active | 9891103217 | | | tobacco | | | | | 103 | | | use | | | | | | +---------+ + + +--------+ + + | Problem | History of | Z98.84 | | | Active | 558908460 | | | bariatric | | | | | | | | surgery | | | | | | +---------+ + + +--------+ + + | Problem | Brain | D49.6 | | | Active | 195827786 | | | tumor | | | | | | +---------+ + + +--------+ + + | Problem | Bipolar | F31.9 | | | Active | 89905105 | | | disorder | | | | | | +---------+ + + +--------+ + + | Problem | Arthritis | M19.90 | | | Active | 686319148 | | | of knee | | | | | | +---------+ + + +--------+ + + | Problem | Fusion of | | M43.22 | | Active | 027245321 | | | spine, | | | | | | | | cervical | | | | | | | | region | | | | | | +---------+ + + +--------+ + + | Problem | Migraine | G43.009 | | | Active | 111627993 | | | headache | | | [...]
[~2017-10-18 16:01] MED LIST: BUDEPRION XL300 MG PO; CELECOXIB200 MG; CLONIDINE HCL0.1 MG; DIAZEPAM10 MG PO; DULOXETINE HCL60 MG PO; FLEXERIL10 MG PO; GABAPENTIN300 MG PO; GEODON80 MG NG; HYDROCODON-ACE1 EAC8 PO; L-METHYLFOLATE15 M1 PO; LANSOPRAZOLE30 MG PO; LITHIUM CARBON300 M1; LORAZEPAM1 MG PO; MELOXICAM7.5 MG/5 M PO; METOPROLOL SUC100 MG PO; METOPROLOL SUCC50 MG PO; NORCO 5-325 TA1 EACH PO; OSTERA TABLET1 EACH PO; PAMPRIN MULTI-1 EACH PO; QUETIAPINE FUM300 MG PO; TOPIRAMATE25 MG PO; TYLENOL325 MG PO; VICODIN 5-3001 EACH PO; ZIPRASIDONE HCL80 MG PO; ZOLPIDEM TART12.5 MG PO
[2017-10-18] MEDS ORDERED: WELLBUTRIN SR200 MG PO (16:59)
[2017-10-18] MEDS ORDERED: CYMBALTA30 MG PO (16:59)
[2017-10-18] MEDS ORDERED: GABAPENTIN300 MG PO (16:59)
[2017-10-18] MEDS ORDERED: NEOMYCIN-POLYMY10 ML OTIC (18:00)
== END 2017-10-18 18:22 | disposition home or self-care (01) ==
LOC: ED 16:01
DX: H60.91 Unspecified otitis externa, right ear (principal); I10 Essential (primary) hypertension; Z87.891 Personal history of nicotine dependence; Z88.5 Allergy status to narcotic agent; Z88.6 Allergy status to analgesic agent; Z79.899 Other long term (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
CPT/HCPCS: 70450; 72125; 96372; 99284; J1885

== ENCOUNTER 2018-07-28 07:00 | Day surgery (SDC) | payer BC ==
[~2018-07-28] VITALS: Ht 152.4 cm; Wt 87.1 kg
[~2018-07-28 07:00] MED LIST changes: +AMITRIPTYLINE H25 MG PO; +CYMBALTA30 MG PO; +LISINOPRIL5 MG PO; +NEOMYCIN-POLYMY10 ML OTIC; +WELLBUTRIN SR200 MG PO
--- NOTE | 2018-07-28 14:53 | NUR ---
07/28/18 1453 Carol Red 1327- PT ARRIVES TO PACU FROM OR ON 6L VIA MASK 100% O2 SATS. PT RESPONSIVE TO VERBAL STIMULUS AND ABLE TO FOLLOW COMMANDS. PT TEARFUL AND REPORTS 9/10 PAIN. 1331- DATASTAGE DEVELOPER KAI AT BEDSIDE. KETAMINE IVP GIVEN SEE ANESTHESIA RECORDS. PT UNRESPONSIVE TO PAINFUL STIMULI. REQUIRES RN JAW THRUST AND DATASTAGE DEVELOPER PLACED ORAL AIRWAY. 1335- PT CONTINUES TO REQUIRE RN JAW THRUST. 1341-PT NO LONGER REQUIRES RN JAW THRUST. CLEARING THROAT. ORAL AIRWAY REMOVED. DOES NOT FOLLOW COMMANDS OR ANSWER QUESTIONS. RESP EVEN AND UNLABORED. SATS 100% @ 6L VIA MASK. 1345- PT DOES NOT FOLOOW COMMANDS BUT CRIES OUT FOR HER . MEHUL BROUGHT TO BEDSIDE. PT SEEMS MORE CALM. RESP EVEN UNLABORED SATS 100% ON RA. 1350- PT REQUESTING TO COUGH. PILLOW GIVEN TO SPLINT ABD. 1353 - PT MEDICATED FOR 9/10 PAIN SEE EMAR. 1402 - PT STATES PAIN WORSENING AFTER INITAL DOSE OF FENTANYL. REMEDICATED FOR PAIN. PT NO LONGER TEARFUL AND ABLE TO FOLLOW COMMANDS APPROPRIATELY. 1410 - PT DRINKING WATER. TOLERATES WELL. TALKING WITH CALMLY. WILL REMEDICATE FOR PAIN. 1415- AFTER REMEDICATION, PT DESATS TO 89% ON RA. IMPROVES WITH COUGH AND DEEP BREATHING. 1420 - PT CONTINUES TO COMPLAIN OF PAIN. EXPLAINED TO PT TO WORK ON BREATHING AND WILL RETURN TO DAY SURGERY TO BEGIN ORAL MEDICATIONS. PT AGREEABLE. 1430 - PT TRANSPORTED ON STRETCHER BACK TO ROOM 2. REPORT GIVEN TO REID BISHOP.
--- NOTE | 2018-07-28 15:57 | NUR ---
1530: PATIENT TOLERATED JELLO, PUDDING, AND WATER. MEDICATED FOR PAIN WITH PO DILAUDID. PATIENT ASSISTED OOB AND TO BATHROOM. GAIT STEADY. LOMAS DC'D. PATIENT TOLERATED LOMAS DC WELL. PATIENT REQUESTED TO STAY IN BATHROOM. IN BATHROOM WITH PATIENT. 1545: PATIENT ASSISTED BACK TO ROOM. GAIT STEADY. EATING MORE JELLO. SCDs REPLACED. VS CHECKED. AT BEDSIDE. ICE PACK TO ABDOMEN PER PATIENT REQUEST. CALL LIGHT WITHIN REACH.
[2018-07-28] MEDS ORDERED: DILAUDID2 MG PO (16:13)
--- NOTE | 2018-07-28 16:40 | NUR ---
PATIENT ASSISTED DRESSED AND SHE TOLERATES THAT WELL. IV RECONNECTED. PATIENT DRINKING WATER. CALL LIGHT W/IN REACH. SPOUSE @ BS.
--- NOTE | 2018-07-28 16:47 | NUR ---
SANDWICH ORDERED FROM DIETARY. MORE ICED WATER GIVEN.
--- NOTE | 2018-07-28 17:46 | NUR ---
PATIENT UP TO BATHROOM WITH RN STANDBY. PATIENT AMBULATES WELL AND DENIES DIZZINESS. PATIENT VOIDS 100 ML BRIGHT, YELLOW URINE AND AMBULATES BACK TO BED. DC INSTRUCTIONS ARE GIVEN IN PRESENCE OF SPOUSE AND BOTH VERBALIZE UNDERSTANDING. SANDWICH ARRIVES FROM DIETARY AND PATIENT IS SITTING UP AT THE BEDSIDE AND EATING HIS SANDWICH. MORE ICED WATER GIVEN. PATIENT IS DRESSED.
--- NOTE | 2018-08-09 04:40 | OR ---
[address] [address] Signed DATE OF OPERATION: 07/28/2018 SURGEON: Danish Henriquez MD Patient of Dr. Henriquez PREOPERATIVE DIAGNOSES: Pelvic pain and abnormal uterine bleeding. POSTOPERATIVE DIAGNOSES: Pelvic pain and abnormal uterine bleeding. PROCEDURE PERFORMED: Total laparoscopic hysterectomy with right salpingo-oophorectomy and left salpingectomy and cystoscopy. PHARMACY COORDINATOR: Dr. Rangel. ANESTHESIA: General. ESTIMATED BLOOD LOSS: 50 mL. SPECIMENS: Uterus, both tubes, and the right ovary. DRAINS: Amador to bladder. FINDINGS: Normal uterus, normal tubes and ovaries bilateral, small simple cyst on the left ovary approximately 2 cm diameter. Both ureters were patent postoperatively. COMPLICATIONS: None. DESCRIPTION OF PROCEDURE: The patient was brought to the operating room, placed supine position. After adequate Electronically Signed By: DANISH HENRIQUEZ MD 08/09/18 0440 PATIENT NAME: MAGALIS BLACKMAN OPERATIVE REPORT DATE OF : 72 REPORT #: [id number] PHYSICIAN: DANISH HENRIQUEZ MD PCP: SHANE MARIE REPORT IS CONFIDENTIAL AND NOT TO BE RELEASED WITHOUT AUTHORIZATION [facility] [address] [place] [id number] Signed general anesthesia was obtained, the patient was placed in a dorsal lithotomy position, prepped and draped in usual sterile fashion. After adequate general anesthesia was obtained, she was placed in dorsal lithotomy position, prepped and draped in usual sterile fashion. Amador catheter was placed in the bladder. Because of the previous endometrial ablation, it was decided to start with the laparoscopy and place the [employer] uterine manipulator while observing the uterus directly, so a small skin incision was made with a scalpel just below the umbilicus after injecting the area with local anesthetic. Subcutaneous tissue was grasped with hemostats, elevated, nicked with Metzenbaum scissors. The fascia was then identified, grasped, with hemostats, elevated and nicked with Metzenbaum scissors and extended in transverse fashion using Metzenbaum scissors. A finger dissection then used to open the peritoneum. The retention stitches of 0 Vicryl suture placed above and below in the fascial incision. The Gerald cannula and sleeve then entered the abdomen under direct visualization. The sleeve balloon was filled with air and the upper portion of the sleeve slid down and locked in place to hold the sleeve in place and the trocar removed. The laparoscope entered the abdomen under direct visualization. Carbon dioxide was used to infuse the abdomen. The above findings were noted. A small skin incision was made just below the level of the umbilicus approximately 10 cm lateral to the midline. This was done after transilluminating the area to avoid any vessels and then injecting the area with local anesthetic. A small skin incision was made with a scalpel and a bladed 5-mm trocar and sleeve entered the abdomen under direct visualization. The trocar was removed in the balloon of the sleeve, inflated with air. On the right side again, the area was transilluminated just below the level of the umbilicus again approximately 10 cm lateral to midline. After transilluminating the area and injecting the area with a local anesthetic, a skin incision was made. A Veress needle with expandable mesh was then placed in the abdomen under direct visualization. The Veress needle was removed and an expandable port with a 10 x 12 sleeve entered the abdomen under direct visualization. Trocar was removed. These two ports were used to place instruments. With uterus identified, attention was then brought back to the pelvis. A weighted speculum was placed in the vagina and the anterior lip of the cervix was grasped with an Allis clamp. Uterine cavity was sounded and then the cervix serially dilated. The VCare uterine manipulator was then placed in the uterus directly in the midline and an attempt made to place as far up in the fundus as possible observing the uterus from above to stay in the midline and try to avoid any perforation. With the VCare uterine manipulator in place, the balloon was filled with sterile water and then the Allis clamp removed and weighted speculum removed. The cervical cap was slid up the manipulator around the cervix and the vaginal cuff slid up and tightened in place to hold the cervical cap around the cervix. At this point, attention was then drawn back to the abdomen. The LigaSure, bipolar, [place] forceps were used for the dissection. The left Electronically Signed By: DANISH HENRIQUEZ MD 08/09/18 0440 PATIENT NAME: MAGALIS BLACKMAN OPERATIVE REPORT DATE OF : 72 REPORT #: [id number] PHYSICIAN: DANISH HENRIQUEZ MD PCP: SHANE MARIE REPORT IS CONFIDENTIAL AND NOT TO BE RELEASED WITHOUT AUTHORIZATION [address] [address] Signed fallopian tube was cauterized along the mesosalpinx and down to the proximal end and then the tube cauterized and cut across the tube at the proximal end and tube removed through the right port. On the right side, the right infundo-pelvic ligament was identified, cauterized in several places and cut, and then the broad ligament cut down along the length of the tube and just under the ovary to stay well away from the ureter and right tube and ovary allowed to fall medially. The left upper pedicle including the round ligament, utero-ovarian ligament were cauterized in several places and cut and the upper portion of the broad ligament cauterized and cut near the uterus and then the anterior and posterior leaves of the broad ligament separately cauterized and cut down the length of the broad ligament again near the uterus and down along to the midline staying at the level of the cervical cap. The peritoneum was bluntly taken down and the uterine vessels exposed. These were cauterized in several places and cut within the cervical cap. On the right side, again the broad ligament was opened and the anterior and posterior leaves of the broad ligament cauterized and cut down the side of the broad ligament near the uterus and connecting with previous midline dissection. The anterior peritoneum was bluntly taken down to help elevate the bladder away from the area of dissection and posteriorly to help drop the ureters away from the area of dissection. The right uterine vessels were cauterized in several places and cut again within and at the edge of the cervical cap, which could be palpated and visualized with the uterine vessels cauterized. The paracervical tissue was cauterized and cut with them again with Maryland forceps until down to the level of the vaginal wall. The Sonicision was then used to open the posterior cul-de-sac in the groove of the cervical cap. This incision was then extended posterior to anterior on the left side and then posterior to anterior on the right side meeting in the anterior midline. At this point, the cervix was now free of the vaginal wall. The attention was drawn back down the vagina where the VCare uterine manipulator was removed and the cervix seen in the vagina. The cervix was then grasped with an Allis clamp and the uterus with the attached right tube and ovary was easily removed through the incision. A sponge filled glove was then placed in the vagina so the abdomen could be re-insufflated and then attention drawn back to the abdomen. The entire area was irrigated, suctioned, examined, and noted to have good hemostasis. The vaginal cuff was then closed using the Endo Stitch with barbed suture. The suture started at the right angle at the right uterosacral ligament stitching posterior to anterior and individually grasping and stitching the posterior vaginal wall then the anterior vaginal wall. Care was taken to avoid the ureter and bladder. After the 1st stitch was placed, the suture was placed through the loop at the end of the barbed suture. The closure was then continued [id number] individually, grasping the posterior and anterior vaginal mucosa, continuing across to the left angle against stopping at the left uterosacral ligament and then continuing back towards the middle superficially to close and further lock the suture. Upon reaching the midline, the Electronically Signed By: DANISH HENRIQUEZ MD 08/09/18 0440 PATIENT NAME: MAGALIS BLACKMAN OPERATIVE REPORT DATE OF : 72 REPORT #: [id number] PHYSICIAN: DANISH HENRIQUEZ MD PCP: SHANE MARIE REPORT IS CONFIDENTIAL AND NOT TO BE RELEASED WITHOUT AUTHORIZATION [address] [address] Signed barbed suture was cut with laparoscopic scissors. The entire pelvis was irrigated, suctioned, examined, and noted to have good hemostasis and good closure of the vagina. At this point, all instruments were removed. The gas allowed to escape and the final sleeve removed. The umbilical incision was closed using running stitch of 0 Vicryl suture. The retention stitches tied together for further support. The 3 skin incisions were closed using 4-0 Vicryl in subcuticular stitches. The sponge filled glove was removed from the vagina. Amador catheter removed and cystoscopy performed with sterile water. A 30-degree scope was placed in the urethra and entered the abdomen under direct visualization. The dome and both sides of the bladder were examined and bladder noted to be good filling with no defects, no holes, no stitches present. Ureters were examined. The patient had been given fluorescein and both ureteral orifices were noted to have good efflux of urine. At this point, the cystoscope was removed, the bladder drained, and the Amador catheter placed back in the bladder. The patient tolerated the procedure well, went to recovery room in good condition. The sponge, needle, instrument count correct at the end of the procedure. MD ZARA Camilo/CRUZITO /[id number] cc: YAMEL Gray Copies: SHANE MARIE ~ Electronically Signed By: DANISH HENRIQUZE MD 08/09/18 0440 PATIENT NAME: MAGALIS BLACKMAN OPERATIVE REPORT DATE OF : 72 REPORT #: [id number] PHYSICIAN: DANISH HENRIQUEZ MD PCP: SHANE MARIE REPORT IS CONFIDENTIAL AND NOT TO BE RELEASED WITHOUT AUTHORIZATION
== END 2018-07-28 17:50 | disposition home or self-care (01) ==
LOC: DS 07:00 → OPS 07:00 → DS 08:26 → OPS 14:03
PROVIDERS: General Practice
PROC: 0UT94ZZ Resection of Uterus, Percutaneous Endoscopic Approach (ICD-10-PCS; principal; 2018-07-28 10:15)
PROC: 0UT04ZZ Resection of Right Ovary, Percutaneous Endoscopic Approach (ICD-10-PCS; 2018-07-28 10:15)
PROC: 0UT74ZZ Resection of Bilateral Fallopian Tubes, Percutaneous Endoscopic Approach (ICD-10-PCS; 2018-07-28 10:15)
DX: D25.1 Intramural leiomyoma of uterus (principal); N87.9 Dysplasia of cervix uteri, unspecified; N83.01 Follicular cyst of right ovary; N83.8 Other noninflammatory disorders of ovary, fallopian tube and broad ligament; E66.01 Morbid (severe) obesity due to excess calories; I10 Essential (primary) hypertension; G47.33 Obstructive sleep apnea (adult) (pediatric); E78.5 Hyperlipidemia, unspecified; E11.9 Type 2 diabetes mellitus without complications; E55.9 Vitamin D deficiency, unspecified; F31.9 Bipolar disorder, unspecified; G25.81 Restless legs syndrome; M47.819 Spondylosis without myelopathy or radiculopathy, site unspecified; M79.7 Fibromyalgia; F17.210 Nicotine dependence, cigarettes, uncomplicated; K21.9 Gastro-esophageal reflux disease without esophagitis; Z88.5 Allergy status to narcotic agent; Z98.890 Other specified postprocedural states; Z88.8 Allergy status to other drugs, medicaments and biological substances; Z79.899 Other long term (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; G43.909 Migraine, unspecified, not intractable, without status migrainosus; Z98.84 Bariatric surgery status; Z68.37 Body mass index [BMI] 37.0-37.9, adult
CPT/HCPCS: 00944; J0330; J0690; J1100; J1644; J1720; J1885; J2250; J2405; J2704; J2765; J3010; J7120

== ENCOUNTER 2018-08-14 22:34 | Emergency (ER) | payer BC ==
[~2018-08-14] VITALS: Ht 152.4 cm; Wt 87.1 kg
[~2018-08-14 22:34] MED LIST changes: +DILAUDID2 MG PO
[2018-08-14] MEDS ORDERED: ZIPSOR25 MG PO (22:52)
[2018-08-14] MEDS ORDERED: BACTRIM DS TAB1 EACH PO (23:10)
== END 2018-08-14 23:20 | disposition home or self-care (01) ==
LOC: ED 22:34
DX: T81.40XA Infection following a procedure, unspecified, initial encounter (principal); L03.311 Cellulitis of abdominal wall; N89.8 Other specified noninflammatory disorders of vagina; B37.49 Other urogenital candidiasis; J45.909 Unspecified asthma, uncomplicated; I10 Essential (primary) hypertension; F41.9 Anxiety disorder, unspecified; F31.9 Bipolar disorder, unspecified; G47.30 Sleep apnea, unspecified; F17.200 Nicotine dependence, unspecified, uncomplicated; Z90.710 Acquired absence of both cervix and uterus; Z91.09 Other allergy status, other than to drugs and biological substances; Z91.040 Latex allergy status; Z88.6 Allergy status to analgesic agent; Z88.5 Allergy status to narcotic agent; Z88.8 Allergy status to other drugs, medicaments and biological substances; Z79.899 Other long term (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
CPT/HCPCS: 87210; 87491; 87591; 99283

== ENCOUNTER 2019-05-20 22:31 | Emergency (ER) | payer BC ==
[~2019-05-20] VITALS: Ht 152.4 cm; Wt 95.2 kg
--- OUTSIDE RECORDS SUMMARY | ~2019-05-20 | XMS | Encounter Summary ---
Demographics + + + | Address | [address] | | | [place] [address] | + + + | Home Phone | | + + + | Preferred Language | Unknown | + + + | Marital Status | | + + + | Scientology Affiliation | LDS | + + + | Race | White | + + + | Ethnic Group | Not or | + + + Author + + + | Author | [facility] | + + + | Organization | [facility] | + + + | [...] Team Providers + +------+ + | Care Mud Analysis Supervisor Name | Role | Phone | + +------+ + | Ramesh Coombs DO | PCP | | + +------+ + Reason for Referral PROC - Inpatient Surgery (Routine) +--------+ + + + + + | Status | Reason | Specialty | Diagnoses / | Referred By | Referred To | | | | | Procedures | Contact | Contact | +--------+ + + + + + | Closed | PLE: Need | Neurological | Diagnoses | Cetas, | Cetas, | | | Estimate | Surgery | Neoplasm of | MD Bart | MD Bart | | | | | uncertain | [address] | [address] | | | | | behavior of | Avenue | Avenue | | | | | brain and | [place], [place] | [place], [place] | | | | | spinal cord | [address] | [phone] | | | | | ([facility]) | Phone: | Phone: | | | | | Procedures | [phone] | [phone] | | | | | REQUEST TO | Fax: | Fax: | | | | | SURGERY | [phone] | [phone] | | | | | INFANTRY UNIT LEADER | | | | | | | NE EXCIS | | | | | | | INFRATENT | | | | | | | BRAIN TUMOR | | | | | | | NE SCAN | | | | | | | PROC CRANIAL | | | | | | | INTRA | | | +--------+ + + + + + Reason for Visit + + + | Reason | Comments | + + + | New patient | | | consultation | | + + + Encounter Details +--------+---------+ + + + | Date | Type | Department | Care Team | Description | +--------+---------+ + + + | 09/21/ | Office | Neurosurgery at | Bart Graham MD | 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[facility] [address] | [address] | tumor (HCC) (Primary | | | | Ave Mailcode: CH8N | [place], [place] | Dx) | | | | [facility] | [address] | | | | | and Healing, | [phone] | | | | | [facility] | | | | | | Floor [place], [place] | | | | | | [address] | | | | | | [phone] | | | +--------+---------+ + + + Social History + +-------+ +--------+------+ | Tobacco Use | Types | Packs/Day | Years | Date | | | | | Used | | + +-------+ +--------+------+ | Current Every Day | | | | | | Smoker | | | | | + +-------+ +--------+------+ + + +---------+ + | Alcohol Use | Drinks/Week | oz/Week | Comments | + + +---------+ + | Not Asked | | | | + + +---------+ [...] + + documented as of this encounter Last Filed Vital Signs + + + + + | Vital Sign | Reading | Time Taken | Comments | + + + + + | Blood Pressure | 153/95 | 09/21/2014 2:16 PM | | | | | PST | | + + + + + | Pulse | 88 | 09/21/2014 2:16 PM | | | | | PST | | + + + + + | Temperature | - | - | | + + + + + | Respiratory Rate | - | - | | + + + + + | Oxygen Saturation | - | - | | + + + + + | Inhaled Oxygen | - | - | | | Concentration | | | | + + + + + | Weight | 88.3 kg (194 lb 9.6 | 09/21/2014 2:16 PM | | | | oz) | PST | | + + + + + | Height | - | - | | + + + + + | Body Mass Index | - | - | | + + + + + documented in this encounter Progress Notes Bart Graham MD - 09/28/2014 11:22 AM PST History: Ms. Villegas is a 43 year old woman with long standing headaches. She has noticed that thes e headaches are worsening. She has photophobia and blurry vision when the headaches are avila y bad. She has some numbness and tingling that she associates with her diabetes. This patient denies any numbness or weakness of face, difficulty with swallowing, history o f seizures, numbness or weakness of extremities or difficulty with gait. No current outpatient prescriptions on file. No current facility-administered medications for this visit. Allergies Allergen Reactions Codeine Unknown Not listed No past surgical history on file. No past medical history on file. Family History: noncontrib History Substance Use Topics Smoking status: Current Every Day Smoker Smokeless tobacco: Not on file Alcohol Use: Not on file Review of Systems: General: No constitutional symptoms of fevers, fatigue, chills, weight loss or sweats. Eyes: No changes in vision loss, double vision, eye pain, eye irritation, discharge, blurr ed vision or light sensitivity. Ears, Nose and Throat: No hearing loss, ringing in the ears, ear discharge, earache, noseb westley, nasal congestion, difficulty swallowing, hoarseness or sore throat. Respiratory: No shortness of breath, coughing up blood, excessive sputum, cough, chest dis comfort or wheezing. Musculoskeletal: No joint pain, swelling, stiffness, back pain, arthritis, muscle aches, m uscle cramps or loss of strength. Cardiovascular: No chest pain, skipping beats, lightheadedness, difficulty breathing uprig ht or lying down, fatigue, near fainting or fainting, palpitations, weight gain, edema, leg cramps. Gastrointestinal: No loss of appetite, excessive appetite, indigestion, vomiting, nausea, constipation, gas, abdominal pain, hemorrhoids, diarrhea, bloating, bloody stools or dark ta rry stools. Genitourinary: No urinary frequency, blood in urine, difficulty in urination, discharge, p ainful urination, incontinence, urinary urgency or genital sores. Neurologic: No unusual headaches, inability to speak, poor balance, numbness, tingling, tr emors, memory loss, disturbances in coordination or sensation of room spinning. Skin: No itching, rash, poor wound healing, night sweats, changes in skin color, dryness, flushing or suspicious lesions. Psychological: No abnormal anxiety, depression, thoughts of suicide or hallucinations. Heme/Lymphatic: No skin discoloration, abnormal bleeding or enlarged lymph nodes. Endrocrine: No heat intolerance, cold intolerance, excessive hunger or excessive thirst. Allergic: No seasonal allergies, hives or rash, persistent infections or HIV exposure. (Medications, allergies, past surgical history, past medical history, social history, and r eview of systems were reviewed by me and if not recorded in [employer] will be scanned into the [facility] using intake patient forms during this encounter.) Physical Exam: BP 153/95 | Pulse 88 | Wt 88.27 kg (194 lb 9.6 oz) Neurological exam: Alert & oriented x 3, fluent speech and good historian. Pupils: Equal, round and reactive to light. EOMI. VFI to confrontational testing. Sensation: Sensation to touch in face is present and symmetrical. Faces symmetrical. Hearing: intact, tinnitus and hearing loss. Mouth: Tongue protrudes into midline. Palate elevates at midline. Good SCM and Trapezius mu scle function bilaterally. Extremity exam: Right deltoid 5/5 Right biceps 5/5 Right triceps 5/5 Right handgrip 5/5 Right interossei 5/5 Left deltoid 5/5 Left biceps 5/5 Left triceps 5/5 Left handgrip 5/5 Left interossei 5/5 Right illiopsoas 5/5 Right quadraceps 5/5 Right tibialis anterior 5/5 Right EHL 5/5 Right Grastroc 5/5 Left illiopsoas 5/5 Left quadraceps 5/5 Left tibialis anterior 5/5 Left EHL 5/5 Left Gastroc 5/5 Reflexes: Right Biceps 2/4 Right Triceps 2/4 Left Biceps 2/4 Left Triceps 2/4 Right Knee 2/4 Right Ankle 2/4 Left Knee 2/4 Left Ankle 2/4 Plantar response: Toes going downward bilaterally. Sensory exam in extremities: No sensory deficits in right upper extremity to light touch. No sensory deficits in left upper extremity to light touch. No sensory deficits in right lower extremity to light touch. No sensory deficits in left lower extremity to light touch. Spurlings test: Right upper extremity negative. Left upper extremity negative. Straight leg raising test: Right lower extremity is negative. Left lower extremity is negat sofie. Cerebellar exam: No dysmetria on finger to nose on right. No dysmetria on finger to nose on left. Gait: Normal Imaging: Plain films: CT scans: MRI scans: Heterogenously enhancing lesion along the floow of the fourth ventricle. 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 No lianna h ydrocephalus yet. She will need to have this lesion resected to establish a diagnosis and d etermine the need for further therapy. In addition she has a high risk of obstructing her CS F outflow and developing acute life-threatening hydrocephalus. In my opinion she needs kellen eduardo. I explained the planned procedure and its attendant rsisks such as stroke, , inf ection CSF leak. She would like to proceed. Plan: Midline suboccipital craniectomy and resection of fourth ventricular tumor. I spent 30 minutes with the patient. Greater than 50% of the time was spent counseling the patient regarding her fourth ventricular tumor . 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
--- OUTSIDE RECORDS SUMMARY | ~2019-05-20 | XMS | Clinical Summary ---
Demographics + + + | Address | [address] | | | [place] [address] | + + + | Home Phone | | + + + | Preferred Language | Unknown | + + + | Marital Status | | + + + | Pentecostalism Affiliation | Unknown | + + + | Race | Unknown | + + + | Ethnic Group | Unknown | + + + Author + + + | Author | [facility] (Historical as of | | | 03-18-19) | + + + | Organization | [facility] (Historical as of | | | 03-18-19) [...] [place] | | | | | [address] | | + + + + + Care Team Providers + +------+ + | Care Chemical Technician Name | Role | Phone | + [...] | 0/20 | | e | | [address] UNITS capsule | | | | 14 [...] +------+-------+ + | PREMERA | PREMER | [id number] | | | [address] [address] | | | A BLUE | 1 | | | [place] | | | CARD | | | | [address] | +---------+--------+ +------+-------+ + + +--------+ +--------+ [...] | [place] | | | [address] | [address] | + +--------+ +--------+ + +"
--- OUTSIDE RECORDS SUMMARY | ~2019-05-20 | XMS | Encounter Summary ---
Demographics + + + | Address | [address] | | | [place] [address] | + + + | Home Phone | | + + + | Preferred Language | Unknown | + + + | Marital Status | | + + + | Adventism Affiliation | LDS | + + + | Race | White | + + + | Ethnic Group | Not or | + + + Author + + + | Author | [facility] | + + + | Organization | [facility] | + + + | [...] Team Providers + +------+ + | Care Social Security Benefits Interviewer Name | Role | Phone | + [...] | | | | brain and | [place] | | | | | spinal cord | [address] | [address] | | | | | ([facility]LY [facility]) | Phone: | Phone: | | | | | Procedures | [phone] | [phone] | | | | | REQUEST TO | Fax: | Fax: | | | | | SURGERY | [phone] | [phone] | | | | | JUNIOR ACCOUNTANT | | | | | | | MA EXCIS | | | | | | | INFRATENT | | | | | | | BRAIN TUMOR | | | | | | | MA SCAN | | | | | | [...] fossa | | 2015 | Visit | [facility] [address] | [address] | tumor (HCC) (Primary | | | | Ave Mailcode: CH8N | [place], [place] | Dx) | | | | [facility] | [address] | | | | | and Healing, | [phone] | | | | | [facility] | | | | | | Floor [place], [place] | | | | | | [address] | | | | | | [phone] | | | +--------+---------+ + + + [...] by me and if not recorded in [employer] will [facility] using [facility] patient forms during this encounter.) [...]
--- OUTSIDE RECORDS SUMMARY | ~2019-05-20 | XMS | Encounter Summary ---
Demographics + + + | Address | [address] | | | [place] [address] | + + + | Home Phone | | + + + | Preferred Language | Unknown | + + + | Marital Status | | + + + | Zoroastrian Affiliation | LDS | + + + | Race | White | + + + | Ethnic Group | Not or | + + + Author + + + | Author | [facility] | + + + | Organization | [facility] | + + + | Address | [...] Team Providers + +------+ + | Care Summer Associate Name | Role | Phone | + +------+ + | Ashwini Ochoa NP | PCP | | + +------+ + Encounter Details +--------+ + + + + | Date | Type | Department | Care Team | Description | +--------+ + + + + | 10/18/ | Clinical Laboratory Medical Director | Neurosurgery at | Tali Jackson, | Neoplasm of brain | | 2015 | | [facility] [address] | [place] [address] | ([facility]) (Primary Dx) | | | | [address] Mailcode: CH8N | [place], [place] | | | | | Lane for [facility] | [address] | | | | | and Healing, | [phone] | | | | | | | | | | | Floor [place], [place] | | | | | | [address] | | | | | | [phone] | | | +--------+ + + + [...] as of this encounter Plan of Treatment + +------+--------+ + + | Name | Type | Priori | Associated Diagnoses | Order Schedule | | | | ty | | | + +------+--------+ + + | 12 LEAD ECG | ECG | Routin | Neoplasm of brain | Ordered: 10/18/2014 | | | | e | (HCC) | | + +------+--------+ + + documented as of this encounter Visit Diagnoses + + | Diagnosis | + + | 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
--- OUTSIDE RECORDS SUMMARY | ~2019-05-20 | XMS | Encounter Summary ---
Demographics + + + | Address | [address] | | | [place] [address] | + + + | Home Phone | | + + + | Preferred Language | Unknown | + + + | Marital Status | | + + + | Tenriism Affiliation | LDS | + + + [...] Team Providers + +------+ + | Care Potato Loader Name | Role | Phone | + [...] Graham MD | Refill Request | | 2015 | | [facility] [address] | [address] | | | | | [address] Mailcode: CH8N | [place], [place] | | | | | [facility] | [address] | | | | | and [place], | [phone] | | | | | [facility] | | | | | | Floor [place], [place] | | | | | | [address] | | | | | | [phone] | | | +--------+ + + + [...]
--- OUTSIDE RECORDS SUMMARY | ~2019-05-20 | XMS | Encounter Summary ---
Demographics + + + | Address | [address] | | | [place] [address] | + + + | Home Phone | | + + + | Preferred Language | Unknown | + + + | Marital Status | | + + + | Mu-Ism Affiliation | LDS | + + + | Race | White | + + + | Ethnic Group | Not or | + + + Author + + + | Author | [facility] | + + + | Organization | [facility] | + + + | [...] Team Providers + +------+ + | Care Cook Helper Meat Name | Role | Phone | + +------+ + | Ashwini Ochoa NP | PCP | | + +------+ + Encounter Details +--------+ + + + + | Date | Type | Department | Care Team | Description | +--------+ + + + + | 01/29/ | Document-Sc | Health Information | Unknown . | | | 2017 | anned | Services [phone] | | | | | [address] | | | | | | Mailcode: OP17A | | | | | | [facility] | | | | | | [place], [place] | | | | | | [address] | | | | | | [phone] | | | +--------+ + + + [...]
--- OUTSIDE RECORDS SUMMARY | ~2019-05-20 | XMS | Encounter Summary ---
Demographics + + + | Address | [address] | | | [place] [address] | + + + | Home Phone | | + + + | Preferred Language | Unknown | + + + | Marital Status | | + + + | Restorationism Affiliation | LDS | + + + | Race | White | + + + | Ethnic Group | Not or | + + + Author + + + | Author | [facility] | + + + | Organization | [facility] | + + + | Address | [...] Team Providers + +------+ + | Care Industrial Economics Professor Name | Role | Phone | [...] | +--------+ + + + + | 10/24/ | Anesthesia | 6A Intra Op [facility] | Marco A Bean, | | | 2015 | Event | [facility] | MD [address] | | | | | Admitting Desk | [address] | | | | | Located on the | [place], [place] | | | | | [facility] [address] | [address] | | | | | [address] | [phone] | | | | | [place], [place] | | | | | | [address] | | | +--------+ + + + + Anesthesia Record + + + + + | Procedure Name | Responsible | Anesthesia Start | Anesthesia Stop Time | | | Anesthesiologist | Time | | + + + + + | FRAMELESS | Marco A Bean MD | 10/24/14 1236 | 10/24/14 1819 | | STEREOTACTIC | | | | | SUBOCCIPITAL | | | | | CRANIECTOMY FOR | | | | | 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 | | | | | FS, ??? audelia), see | | | | | paper record (N/A | | | | | Head) | | | | + + + + + +----+---+ + + | Da | T | Event | Comment | | te | i | | | | | m | | | | | e | | | +----+---+ + + | 03 | 1 | Eq Check | Anesthesia machine checked Equipment verified | | /2 | 2 | | | | 5/ | 2 | | | | 20 | 1 | | | | 15 | | | | +----+---+ + + | | 1 | | | | | 2 | | | | | 3 | | | | | 5 | | | +----+---+ + + | | 1 | Pt. Check | Prior to anesthesia start, pt. Identified, examined, chart | | | 2 | | reviewed, PARQ held, anesthetic plan made or approved by | | | 3 | | attending anesthesiologist. NPO status confirmed as appropriate | | | 5 | | for procedure Preoperative evaluation: unchanged | +----+---+ + + | | 1 | An Start | | | | 2 | | | | | 3 | | | | | 6 | | | +----+---+ + + | | 1 | An Start | | | | 2 | Data | | | | 4 | | | | | 2 | | | +----+---+ + + | | 1 | Vitals | Monitors applied Vital signs checked Patient ready for anesthesia | | | 2 | Checked | | | | 4 | | | | | 7 | | | +----+---+ + + | | 1 | Std. Airway | | | | 2 | Mgt. | | | | 5 | | | | | 2 | | | +----+---+ + + | | 1 | Art Line | Left radial #20 Arrow | | | 3 | | | | | 0 | | | | | 4 | | | +----+---+ + + | | 1 | Central | Left SC 3-lumen CVC | | | 3 | venous line | | | | 1 | | | | | 8 | | | +----+---+ + + | | 1 | Ready | | | | 3 | | | | | 2 | | | | | 1 | | | +----+---+ + + | | 1 | Head Pins | | | | 3 | Applied | | | | 3 | | | | | 4 | | | +----+---+ + + | | 1 | Quick Note | Flipped prone | | | 3 | | | | | 3 | | | | | 6 | | | +----+---+ + + | | 1 | Abx | | | | 3 | Administere | | | | 4 | d | | | | 0 | | | +----+---+ + + | | 1 | Quick Note | Request by neuromonitoring to turn off gas to improve SSEPs. | | | 4 | | Will add dexmedetomidine to infusions and run TIVA | | | 1 | | | | | 5 | | | +----+---+ + + | | 1 | Quick Note | Request for pCO2 at 28 by surgeons | | | 4 | | | | | 2 | | | | | 1 | | | +----+---+ + + | | 1 | Incision | | | | 4 | | | | | 2 | | | | | 6 | | | +----+---+ + + | | 1 | Medication | Fentanyl 550mcg | | | 6 | Handoff | | | | 0 | | | | | 0 | | | +----+---+ + + | | 1 | Quick Note | A-line waveform dampening | | | 7 | | | | | 0 | | | | | 5 | | | +----+---+ + + | | 1 | Surgery end | | | | 7 | | | | | 4 | | | | | 9 | | | +----+---+ + + | | 1 | an stop | | | | 8 | data | | | | 0 | | | | | 8 | | | +----+---+ + + | | 1 | OR to | patient transported to ICU with continuos monitoring, intubated | | | 8 | ICU/Handoff | and ventilated, signout given to ICU team | | | 1 | | | | | 0 | | | +----+---+ + + | | 1 | Anesthesia | | | | 8 | End | | | | 1 | | | | | 9 | | | +----+---+ + + +------+ | Meds | +------+ + + + | Name | Total | + + + | fentaNYL | 650 mcg | + + + | dexamethasone | 10 mg | + + + | propofol INF | 4,110,100 mcg | + + + | propofol | 150 mg | + + + | rocuronium | 50 mg | + + + | lidocaine 2% | 100 mg | + + + | dexmedetomidine INF (4 mcg/mL) | 163.15 mcg | + + + | ceFAZolin | 2,000 mg | + + + | ondansetron | 4 mg | + + + | LR | 1,000 mL | + + + | NS | 1,400 mL | + + + + + | Name | + + | Insp Sevo | + + | Et Sevo | + + | Insp Iso | + + | Et Iso | + + | EtN2O % | + + | Insp N2O % | + + | O2 Flow Rate (Total Liters) | + + | Air Flow rate (L/min) | + + + + | No blood administrations on file. | + + +--------+ + + + | Type | Details | Placement | Removal | +--------+ + + + | RETIRE | 10/24/14; No; posterior; head; | 10/24/14 0000 by | 10/28/14 1320 by | | D - | 10/28/14; 1320 | Wendy Iniguez RN | Anabelle Ram RN | | Incisi | | | | | on | | | | +--------+ + + + | RETIRE | 10/24/14; 0645; 10/28/14; 1100; | 10/24/14 0645 by | 10/28/14 1100 by | | D - | No; 20; Right; Hand | Ophelia Peters RN | Anabelle Ram RN | | Periph | | | | | eral | | | | | Line | | | | +--------+ + + + | RETIRE | 10/24/14; 1254; 10/28/14; 1100; | 10/24/14 1254 by | 10/28/14 1100 by | | D - | No; 18; Left; Hand | Keya Cano | Anabelle Ram RN | | Periph | | MD Augustus | | | eral | | | | | Line | | | | +--------+ + + + | RETIRE | 10/24/14; 1304; 10/25/14; 0903; | 10/24/14 1304 by | 10/25/14 09 by | | D - | No; 20g; left, radial | Keya M | Erna Wade RN | | Arteri | | MD Augustus | | | al | | | | | Line | | | | +--------+ + + + | RETIRE | 10/24/14; 1313; 10/26/14; 0610; | 10/24/14 1313 by | 10/26/14 0610 by | | D - | No; Amador; 16FR (inserted in [place] | Wendy Iniguez RN | Vianney Morin RN | | Urinar | by Gigi Iniguez RN) | | | | y Cath | | | | | | | | | | Placem | | | | | ent | | | | | (Roseann | | | | | & Cath | | | | | Care | | | | | Daily | | | | | and Q | | | | | BM) | | | | +--------+ + + + | RETIRE | 10/24/14; 1318; 10/26/14; 1023; | 10/24/14 1318 by | 10/26/14 1023 by | | D - | Left; Chest; Subclavian | Keya M | Erna Wade RN | | Centra | | MD Augustus | | | l Line | | | | +--------+ + + + documented in this encounter Social History + + + +--------+------+ | [...] Visit Diagnoses Not on filedocumented in this encounter Administered Medications + +--------+ + +------+------+ | Medication Order | MAR | Action | Dose | Rate | Site | | | Action | Date | | | | + +--------+ + +------+------+ | ceFAZolin (ANCEF) injection | Given | 10/25/19 | 2,000 mg | | | | intravenous, INTRAPROCEDURE PRN, | | 15 1:40 | | | | | Starting Wed10/24/14 at 1340, | | PM PDT | | | | | Until Wed10/24/14 at 1813 | | | | | | + +--------+ + +------+------+ +---+---+ | | | +---+---+ + +-------+ +-------+---+---+ | dexamethasone (DECADRON) | Given | 10/25/19 | 10 mg | | | | injection intravenous, | | 15 1:01 | | | | | INTRAPROCEDURE PRN, Starting Wed | | PM PDT | | | | | 10/24/14 at 1301, Until Wed | | | | | | | 10/24/14 at 1813 | | | | | | + +-------+ +-------+---+---+ +---+---+ | | | +---+---+ + +---------+ + +-------+---+ | dexmedetomidine (PRECEDEX) IV | New Bag | 10/25/19 | 0.7 | 16.1 | | | infusion INTRAPROCEDURE | | 15 2:24 | mcg/kg/h | mL/hr | | | CONTINUOUS PRN, Starting Wed | | PM PDT | r | | | | 10/24/14 at 1424, Until Wed | | | | | | | 10/24/14 at 1813 | | | | | | + +---------+ + +-------+---+ +---+---+ | | | +---+---+ + +-------+ +---------+---+---+ | fentaNYL citrate (PF) | Given | 10/25/19 | 100 mcg | | | | (SUBLIMAZE) injection | | 15 5:35 | | | | | INTRAPROCEDURE PRN, Starting Wed | | PM PDT | | | | | 10/24/14 at 1244, Until Wed | | | | | | | 10/24/14 at 1813, sedation | | | | | | + +-------+ +---------+---+---+ +-------+ +--------+---+---+ | Given | 10/25/19 | 50 mcg | | | | | 15 4:22 | | | | | | PM PDT | | | | +-------+ +--------+---+---+ | Given | 10/25/19 | 50 mcg | | | | | 15 4:10 | | | | | | PM PDT | | | | +-------+ +--------+---+---+ +---+---+ | | | +---+---+ + + + +---+---+---+ | lactated ringers IV | given by | 10/25/19 | | | | | INTRAPROCEDURE CONTINUOUS PRN, | | 15 5:15 | | | | | Starting Wed10/24/14 at 1236, | anesthes | PM PDT | | | | | Until Wed10/24/14 at 1813 | iology | | | | | + + + +---+---+---+ + + +---+---+---+ | given by anesthesiology | 10/25/19 | | | | | | 15 2:16 | | | | | | PM PDT | | | | + + +---+---+---+ | New Bag | 10/25/19 | | | | | | 15 12:36 | | | | | | PM PDT | | | | + + +---+---+---+ +---+---+ | | | +---+---+ + +-------+ +--------+---+---+ | lidocaine PF (XYLOCAINE MPF) 20 | Given | 10/25/19 | 100 mg | | | | mg/mL (2 %) injection | | 15 12:52 | | | | | INTRAPROCEDURE PRN, Starting Wed | | PM PDT | | | | | 10/24/14 at 1252, Until Wed | | | | | | | 10/24/14 at 1813 | | | | | | + +-------+ +--------+---+---+ +---+---+ | | | +---+---+ + + + +---+---+---+ | NaCl 0.9 % IV INTRAPROCEDURE | given by | 10/25/19 | | | | | CONTINUOUS PRN, Starting Wed | | 15 5:15 | | | | | 10/24/14 at 1330, Until Wed | anesthes | PM PDT | | | | | 10/24/14 at 1813 | iology | | | | | + + + +---+---+---+ + + +---+---+---+ | given by anesthesiology | 10/25/19 | | | | | | 15 3:45 | | | | | | PM PDT | | | | + + +---+---+---+ | given by anesthesiology | 10/25/19 | | | | | | 15 2:48 | | | | | | PM PDT | | | | + + +---+---+---+ +---+---+ | | | +---+---+ + +-------+ +------+---+---+ | ondansetron (ZOFRAN) injection | Given | 10/25/19 | 4 mg | | | | INTRAPROCEDURE PRN, Starting Wed | | 15 4:59 | | | | | 10/24/14 at 1659, Until Wed | | PM PDT | | | | | 10/24/14 at 1813 | | | | | | + +-------+ +------+---+---+ +---+---+ | | | +---+---+ + + + + + +---+ | propofol (DIPRIVAN) injection | Rate/Dos | 10/25/19 | 125 | 69 mL/hr | | | INTRAPROCEDURE CONTINUOUS PRN, | e Change | 15 4:42 | mcg/kg/m | | | | Starting Wed10/24/14 at 1250, | | PM PDT | in | | | | Until Wed10/24/14 at 1813 | | | | | | + + + + + +---+ + + + +--------+---+ | Rate/Dose Change | 10/25/19 | 200 | 110.4 | | | | 15 3:14 | mcg/kg/m | mL/hr | | | | PM PDT | in | | | + + + +--------+---+ | Rate/Dose Change | 10/25/19 | 225 | 124.2 | | | | 15 2:46 | mcg/kg/m | mL/hr | | | | PM PDT | in | | | + + + +--------+---+ +---+---+ | | | +---+---+ + +-------+ +--------+---+---+ | propofol INTRAPROCEDURE PRN, | Given | 10/25/19 | 150 mg | | | | Starting 10/24/14 at 1252, | | 15 12:52 | | | | | Until 10/24/14 at 1813 | | PM PDT | | | | + +-------+ +--------+---+---+ +---+---+ | | | +---+---+ + +-------+ +-------+---+---+ | rocuronium (ZEMURON) injection | Given | 10/25/19 | 50 mg | | | | INTRAPROCEDURE PRN, Starting Wed | | 15 12:53 | | | | | 10/24/14 at 1253, Until Wed | | PM PDT | | | | | 10/24/14 at 1813, Neuromuscular | | | | | | | block | | | | | | + +-------+ +-------+---+---+ +---+---+ | | | +---+---+ documented in this encounter"
--- OUTSIDE RECORDS SUMMARY | ~2019-05-20 | XMS | Encounter Summary ---
Demographics + + + | Address | [address] | | | [place] [address] | + + + | Home Phone | | + + + | Preferred Language | Unknown | + + + | Marital Status | | + + + | Christianity Affiliation | LDS | + + + | Race | White | + + + | Ethnic Group | Not or | + + + Author + + + | Author | [facility] | + + + | Organization | [facility] | + + + | [...] Team Providers + +------+ + | Care Campaign Analyst Name | Role | Phone | + +------+ + | Ashwini Ochoa NP | PCP | | + +------+ + Encounter Details +--------+ + + + + | Date | Type | Department | Care Team | Description | +--------+ + + + + | 10/22/ | Document-Sc | UNKNOWN DEPARTMENT | Unknown . | | | 2015 | anned | [address] | | | | | | [address] | | | | | | [place], [place] | | | | | | [address] | | | +--------+ + + + [...] | Procedure Note | + + | Raj, Faculty - 10/22/2014 11:11 AM PDT | + + + + | Transcriptions | + + | Raj [facility] - 10/22/2014 11:11 AM PDT | + + | Raj Faculty - 10/22/2014 11:11 AM PDT | + + | Raj Faculty - 10/22/2014 11:11 AM PDT | + + documented in this encounter Visit Diagnoses Not on filedocumented in this encounter"
--- OUTSIDE RECORDS SUMMARY | ~2019-05-20 | XMS | Encounter Summary ---
Demographics + + + | Address | [address] | | | [place] [address] | + + + | Home Phone | | + + + | Preferred Language | Unknown | + + + | Marital Status | | + + + | Restorationism Affiliation | LDS | + + + | Race | White | + + + | Ethnic Group | Not or | + + + Author + + + | Author | [facility] | + + + | Organization | [facility] | + + + | Address [...] Team Providers + +------+ + | Care Waste Reduction Coordinator Name | Role | Phone | + +------+ + | Ashwini Ochoa NP | PCP | | + +------+ + Encounter Details +--------+ + + + + | Date | Type | Department | Care Team | Description | +--------+ + + + + | 11/10/ | Telephone | Neurosurgery at | [place], | | | 2014 | | [facility] [address] | [address] | | | | | [place] Mailcode: CH8N | [address] | | | | | [facility] | [place], [place] | | | | | [place], | [address] | | | | | | [phone] | | | | | Floor [place], [place] | | | | | | [address] | | | | | | [phone] | | | +--------+ + + + [...]
--- OUTSIDE RECORDS SUMMARY | ~2019-05-20 | XMS | Encounter Summary ---
Demographics + + + | Address | [address] | | | [place] [address] | + + + | Home Phone | | + + + | Preferred Language | Unknown | + + + | Marital Status | | + + + | Druze Affiliation | LDS | + + + | Race | White | + + + | Ethnic Group | Not or | + + + Author + + + | Author | [facility] | + + + | Organization | [facility] | + + + | Address | [...] Team Providers + +------+ + | Care Clinical Nursing Director Name | Role | Phone | + [...] Refill Request | | 2015 | | [facility] [address] | [address] | | | | | [place] Mailcode: CH8N | [place], [place] | | | | | [facility] | [address] | | | | | and [place], | [phone] | | | | | [facility] | | | | | | Floor [place], [place] | | | | | | [address] | | | | | | [phone] | | | +--------+ + + + [...]
--- OUTSIDE RECORDS SUMMARY | ~2019-05-20 | XMS | Encounter Summary ---
Demographics + + + | Address | [address] | | | [place] [address] | + + + | Home Phone | | + + + | Preferred Language | Unknown | + + + | Marital Status | | + + + | Mosque Affiliation | LDS | + + + | Race | White | + + + | Ethnic Group | Not or | + + + Author + + + | Author | [facility] | + + + | Organization | [facility] | + + + | [...] Team Providers + +------+ + | Care Senior Copywriter Name | Role | Phone | + +------+ + | Ashwini Ochoa X RAY EQUIPMENT TESTER | PCP | | + +------+ + Reason for Referral Diagnostic Testing (Routine) +--------+--------+ + + + + | Status | Reason | Specialty | Diagnoses / | Referred By | Referred To | | | | | Procedures | Contact | Contact | +--------+--------+ + + + + | Closed | | Radiology | Diagnoses | [facility]enzie | | | | | | | Nury Harrell, | | | | | | Subependymom | [place] [address] | | | | | | asad (HCC) | [address] | | | | | | Procedures | Karis Cabral | | | | | | MRI BRAIN | [place], [place] | | | | | | TUMOR | [address] | | | | | | EVALUATION | Phone: | | | | | | [facility]WO CONTRAST | [phone] | | | | | | | Fax: | | | | | | | [phone] | | +--------+--------+ + + + + [...] (HCC) | | 2015 | Visit | [facility] [address] | [address] | (Primary Dx) | | | | Ave Mailcode: CH8N | [place], [place] | | | | | [place] [facility] | [address] | | | | | and Healing, | [phone] | | | | | | | | | | | Floor [place], [place] | | | | | | [address] | | | | | | [phone] | | | +--------+---------+ + + + [...] reports that she is doing well ov era. She denies headaches currently. She does note [...] by mouth once daily in the morning. November resum e 2 weeks after surgery dexamethasone 4 mg oral tablet, Take 1 tablet by mouth every six hours. Take 1 tablet by [facility] every 8 hours for 2 days. [...] also contact us to fax referral for [facility] in [facility]. 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
--- OUTSIDE RECORDS SUMMARY | ~2019-05-20 | XMS | Encounter Summary ---
Demographics + + + | Address | [address] | | | [place] [address] | + + + | Home Phone | | + + + | Preferred Language | Unknown | + + + | Marital Status | | + + + | Baptist Affiliation | LDS | + + + [...] Team Providers + +------+ + | Care Die Setter Name | Role | Phone | + +------+ + | Ashwini Ochoa NP | PCP | | + +------+ + Encounter Details +--------+ + + + + | Date | Type | Department | Care Team | Description | +--------+ + + + + | 01/29/ | Document-Sc | Health Information | Unknown . | | | 2017 | anned | Services [address] | | | | | [address] | | | | | | Mailcode: OP17A | | | | | | [facility] | | | | | | [place], [place] | | | | | | [address] | | | | | | [phone] | | | +--------+ + + + [...]
--- OUTSIDE RECORDS SUMMARY | ~2019-05-20 | XMS | Encounter Summary ---
Demographics + + + | Address | [address] | | | [place] [address] | + + + | Home Phone | | + + + | Preferred Language | Unknown | + + + | Marital Status | | + + + | Synagogue Affiliation | LDS | + + + [...] Team Providers + +------+ + | Care Compensation Agent Name | Role | Phone | + [...] data | | 2015 | IP | [address] | [address] | completion) | | | | [address] | [place], [place] | | | | | [place], [place] | [address] | | | | | [address] | [phone] | | | | | | | [...]
--- OUTSIDE RECORDS SUMMARY | ~2019-05-20 | XMS | Encounter Summary ---
Demographics + + + | Address | [address] | | | [place] [address] | + + + | Home Phone | | + + + | Preferred Language | Unknown | + + + | Marital Status | | + + + | Christian Affiliation | LDS | + + + | Race | White | + + + | Ethnic Group | Not or | + + + Author + + + | Author | [facility] | + + + | Organization | [facility] | + + + | Address [...] Team Providers + +------+ + | Care Houseperson Name | Role | Phone | + [...] | | | | | [address] [address] [place], | | | | | | [place] [address] | | | +--------+ + + + [...]
--- OUTSIDE RECORDS SUMMARY | ~2019-05-20 | XMS | Encounter Summary ---
Demographics + + + | Address | [address] | | | [place] [address] | + + + | Home Phone [...] Team Providers + +------+ + | Care Doctor Of Nurse Anesthesia Practice Name | Role | Phone | + [...] IP | [address] | [address] | completion) | | | | [address] | [place], [place] | | | | | [place], [place] | [address] | | | | | [address] | [phone] | | | | | | | [...]
--- OUTSIDE RECORDS SUMMARY | ~2019-05-20 | XMS | Encounter Summary ---
Demographics + + + | Address | [address] | | | [place] [address] | + + + | Home Phone [...] Team Providers + +------+ + | Care Workforce Specialist Name | Role | Phone | [...] Rd | | | | | | [place], [place] | | | | | | [address] | | | +--------+ + + + [...] | Procedure Note | + + | Raj Faculty - 10/19/2014 8:06 AM PDT | + + documented in this encounter Visit Diagnoses Not on filedocumented in this encounter"
--- OUTSIDE RECORDS SUMMARY | ~2019-05-20 | XMS | Encounter Summary ---
Demographics + + + | Address | [address] | | | [place] [address] | + + + | Home Phone | | + + + | Preferred Language | Unknown | + + + | Marital Status | | + + + | Christianity Affiliation | LDS | + + + | Race | White | + + + | Ethnic Group | Not or | + + + Author + + + | Author | [facility] | + + + | Organization | [facility] | + + + | Address [...] Team Providers + +------+ + | Care Car Shagger Name | Role | Phone | + [...] Declan Gonsales, | Tumor Board | | 2014 | on | [facility] [address] | ,PhD [address] | Recommendation | | | | Ave Mailcode: CH8N | [address] | | | | | [facility] | [place], [place] | | | | | he[place], | [address] | | | | | [facility] | [phone] | | | | | Floor [place], [place] | | | | | | [address] | | | | | | [phone] | | | +--------+ + + + [...]
--- OUTSIDE RECORDS SUMMARY | ~2019-05-20 | XMS | Encounter Summary ---
Demographics + + + | Address | [address] | | | [place] [address] | + + + | Home Phone | | + + + | Preferred Language | Unknown | + + + | Marital Status | | + + + | Restoration Affiliation | LDS | + + + | Race | White | + + + | Ethnic Group | Not or | + + + Author + + + | Author | [facility] | + + + | Organization | [facility] | + + + | Address | Unknown | + + + | Phone | Unavailable | + + + Support + + +---------+ + | Name | Relationship | Address | Phone | + + +---------+ + | Keya | ECON | Unknown | | | M[place]a | | | | + + +---------+ + Care Team Providers + +------+ + | Care Fine Patcher Name | Role | Phone | + [...] + + | 10/24/ | Hospital | [facility] [address] | Bart Graham MD | | | 2015 - | Encounter | [address] | [address] [facility] | | | | | [id number] NESSA | [place], [place] | | | 10/28/ | | [place], | [address] | | | 2015 | | [place] [address] | [phone] | | | | | [phone] | | | +--------+ + + + [...] 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 [...] and 719.7 difficulty in walking Anticipated Discharge:, Alisha sp-1 each, R-0, Print Prescription polyethylene glycol [...] at 9:30am. We are located at the [facility] and [facility], [address] [place] [address]. Address: [address] [place] [address]. Please call [phone] for questions o r concerns. 2. Follow up with your PCP to review your hospital course and medication changes. Please call to schedule this appointment. Future Appointments Date & Time Provider Department Dept Phone Center 11/09/2014 9:30 AM Bart Graham Neurosurgery at [facility] [phone] Neurosurgery Discharging Physician: JAIME HOWARD MD Attending [...] 14 | | | | bedtime. 2 gape=721 | | | | | | | [...] hours (or 3 results) Recent Labs 10/25/14 0207 10/26/14 0102 10/27/14 0646 WBC 30.79* 26.34* 18.52* HB 10.2* 9.0* 9.8* HCT 34.4* 30.4* 34.1* PLT 393 294 295 Chemistries: Last 72 Hours (or 3 results): Recent Labs 10/25/14 0207 10/26/14 0102 10/26/14 2200 10/27/14 0639 10/27/14 0646 NA 141 [...] issues Jaime Howard MD Neurosurgery Resident Pager #[phone] MEDICATIONS Current Facility-Administered Medications Medication acetaminophen (TYLENOL) [...] 50 mg ziprasidone (GEODON) capsule 160 mg OCeBart early MD - 0 10/26/2014 12:38 PM PDT [...] 7NSICU ATTENDING NEUROINTENSIVIST PROGRESS NOTE Team Pager: [phone] Attendin -------- EVENING NOTE -------- Date:10/25/2014 Critical [...] s/s of infection # Bipolar: Restart Wellbutrin, Foresthill, Duloxetine, Ziprasidone, and lorazepam (prn) # Lines: CVL (subclavian), matos, PIV - d/c matos Relevant Risks: This patient is currently at risk for the following: cerebral edema, hydroc ephalus, intracerebral hemorrhage and seizure; central line associated blood stream infectio n, DVT/Pulmonary embolism, ICU delirium and UTI. I spent 30 minutes actively involved in the care and management of this patient. Sachin Ward MD [facility] DEPARTMENT: [id number] ICU NEURO Place of Service:- Inpatient Date of Service: 10/25/2014 CSN: [id number] Suggested Modifier: None Suggested CPT: TO CHARGER RELEVANT DATA: Last Vitals: BP 112/66 | [...] 10.2* HCT 35.2* 34.4* PLT 403* 393 urrant, Becca Hand MD - 10/25/2014 12:37 PM [...] charting, and discussion with treatment decision maker. 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 -Doing well overnight. No significant events. OBJECTIVE: Vital signs, labs, and medications all reviewed in patient chart. NEUROLOGICAL EXAM: Awake, alert, orient to self, [facility], and September Speech fluent, answers appropriately PERRL, EOMI Face [...] MRI -dexamethasone 4mg q6--slow taper ordered. -medication EXPERIMENTAL WORKER: Geodon 160mg qHS, tramadol 50mg q6hr prn [...] for NV - Diet: [facility] - MIVF: Normal saline w/ [...] with the ab ove assessment and plan. VALENTINA CASTANON [facility] DEPARTMENT: [id number] ICU NEURO Place of Service:- Inpatient Date of Service: 10/25/2014 CSN: [id number] Suggested Modifier: None Suggested CPT: TO CHARGER OBuKareen yañez MD - 2014 6:49 PM PDT NEUROSURGERY [...] - 2014 6:19 PM PDT 7NSICU ATTENDING [employer] LABORATORY DIRECTOR DAILY PROGRESS NOTE Team Pager: [phone] Attendin Date:2014 Critical Care Attending Physician: SACHIN WARD MD Referring Attending Physician: Bart Graham MD I saw and evaluated the patient at the bedside together with Dr Oneil reviewed her finding s, all data and the recent imaging available. I agree with her assessment and the plan as do sally. I have discussed findings and plan of care with the primary team and the consultants [facility] ed. (Relevant data is listed at the bottom of this note). CC / Hx / Last 24hr: s/p 1) Suboccipital craniectomy and C1 laminectomy 2) Resection of fo urth ventricular mass; Tium mesh cranioplasty Patient Active Problem List Diagnosis Neoplasm of brain PMH: Bipolar, anxiety, headaches , GERD, asthma Home meds: Ziprasidone, Tramadol, Topiramate, Lorazepam, Foresthill, Lansoprazole, Dilaudid, Celecoxib, g abapentin, duloxetine, bupropion, [...] opioids: continue gabapentin # Bipolar: Restart Wellbutrin, [place], Duloxetine, Ziprasidone, and lorazepam (prn) # Lines: arterial line, CVL (subclavian), matos, PIV Relevant Risks: This patient is currently at risk for the following: cerebral edema, hy drocephalus, intracerebral hemorrhage and seizure; central line associated blood stream infe ction, DVT/Pulmonary embolism, ICU delirium and UTI. I spent 65 minutes actively involved in the care and management of this patient. Sachin Ward MD [facility] DEPARTMENT: [id number] ICU NEURO Place of Service:- Inpatient Date of Service: erEDICAL RECORD NUMBER [id number] CSN: [id number] Suggested Modifier: None Suggested CPT: TO CHARGER RELEVANT DATA: Last Vitals: BP 139/80 | [...] | + +--------+ + + + | CHLORIDE, POC | Routin | 2014 | Neoplasm of brain | Results for this | | | e | 1:21 PM | (HCC) | procedure are in the | | | | PDT | | results section. | + +--------+ + + + | LUCHO IONIZED CA, POC | Routin | 2014 | Neoplasm [...] SALLYAM | [address] | [place], [place] | | | MALINA NELSON OF BEL | [facility] | [address] | | | TESTS | | | [...] (H) | 60 - 99 mg/dL | [facility] - | | | GLUCOSE, | [...] CHENG | [address] | [place], [place] | | | [facility] | [address] | [address] | | | TESTS | | | [...] [facility] | [address] | [place] [address] | | | SERVICES, CORE | PARK [...] | | | LABORATORY | | | EMIRATI | | | SERVICES, | | | [...] | + + + + + | [facility] | [address] | [place] [address] | | | SERVICES, CORE | KAYLEN [...] MARQUAM | [address] | [place], [place] | | | MALINA NELSON OF CARE | [address] | [address] | | | TESTS | | | [...] + | [facility] | [address] | [place], [place] | | | MALINA NELSON OF CARE | [address] | [address] | | | TESTS | | | [...] CHENG | [address] | [place], [place] | | | MALINA NELSON OF BEL | [address] | [address] | | | TESTS | | | [...] + + | [facility] | [address] | [place] [address] | | | SERVICES, CORE | PARK [...] | | | LABORATORY | | | EMIRATI | | | SERVICES, | | | [...] 10 | 4 - 11 mmol/L | [facility] | | | GAP(ALB | | | [...] | + + + + + | [facility] | [address] | [place] [address] | | | SERVICES, CORE | PARK [...] SALLYAM | [address] | [place], [place] | | | MALINA NELSON OF BEL | [facility] | [address] | | | TESTS | | | [...] (H) | 60 - 99 mg/dL | [facility] - | | | GLUCOSE, | [...] CHENG | [address] | [place], [place] | | | LESLIE POINT OF CARE | [address] | [address] | | | TESTS | | | [...] + + | Performing | Address | City/State/[facility] | Phone Number | | Organization | | | | + + + + + | [facility] | [address] | [place], [place] | | | [facility] | [address] | [address] | | | TESTS | | | [...] + + + + + | [facility] | [address] [address] [address] | [place], [place] | | | [facility] | [address] | [address] | | | TESTS | | | | + + + + + OPERATION RECORD (10/26/2014 9:22 AM PDT) + + | Transcriptions | + + | Bart Graham MD - 2014 10:30 PM PDT Date of Service: 2014 Attending | | Surgeon: Bart Graham MD Foundry Helper(s): Brady Conroy MD, | | PhD. Preoperative [...] and she was placed in the Bhagat chiseler head and flipped into | | the prone position on chest rolls. Her arms were tucked at her sides and all pressure | | points were carefully padded. We then registered the Soufun frameless stereotactic | | navigation system with [...] curette with Kerrison punches. We used a [place] dissector to | | carefully dissect the [...] were removed. She was removed from the [place] chiseler head | | and flipped into the [...] | approach, resection of tumor and dural closureSabastGEREMIAS Farnsworth/MODLDD: 2014 | | 18:04:22DT: 2014 22:30:30Job #: [id number] | + + CAPILLARY BLOOD GLUCOSE (NO [...] CHENG | [address] | [place], [place] | | | MALINA NELSON OF CARE | [facility] | [address] | | | TESTS | | | [...] PROSPER | [address] | [place], [place] | | | L[facility]LIE POINT OF CARE | [facility] | [address] | | | TESTS | | | [...] [facility] | [address] | [place] [address] | | | SERVICES, CORE | KAYLEN [...] | | | LABORATORY | | | EMIRATI | | | SERVICES, | | | [...] | + + + + + | [facility] | [address] | [place] [address] | | | SERVICES, CORE | KAYLEN [...] (H) | 60 - 99 mg/dL | [facility] - | | | GLUCOSE, | [...] CHENG | [address] | [place], [place] | | | MAL[facility] N[facility] | [address] | [address] | | | TESTS | | | [...] MARQUAM | [address] | [place], [place] | | | [facility] PO[facility]ARE | [address] | [address] | | | TESTS | | | [...] PROSPER | [address] | [place], [place] | | | MAL[facility] CARE | [address] | [address] | | | TESTS | | | [...] (H) | 60 - 99 mg/dL | [facility] - | | | GLUCOSE, | [...] CHENG | [address] | [place], [place] | | | MALINA NELSON OF BEL | [address] | [address] | | | TESTS | | | [...] | + + + + + | [facility] [employer] [facility] | [address] | [place] [address] | | | SERVICES, SPECIAL | PARK [...] [facility] | [address] | [place] [address] | | | SERVICES, CORE | PARK [...] | | | LABORATORY | | | EMIRATI | | | SERVICES, | | | [...] | + + + + + | [facility] | [address] | [place] [address] | | | SERVICES, CORE | KAYLEN [...] | | | | | | contrast. [id number] | | | | | | reformatted [...] | | + +---------+ + + | [facility] DEPARTMENT OF | | | | | RADIOLOGY | | | | + +---------+ + + X-RAY PORTABLE CHEST 1 VIEW (2014 6:53 PM PDT) + + + + + + | Component | Value | Ref Range | Performed | Pathologist | | | | | At | Signature | + + + + + + | X-RAY | EXAM: IA CHEST 1 VIEW | | | | [...] | | | | | | BRANDY RAY MDAuthor: | | | | | | [...] BRANDY | | | | | | FUSPriscilla 10/25/2014 8:39 AM | | | | + + + + + + + + | Specimen | + + | | + + + +---------+ + + | Performing | Address | City/State/Zipcode | Phone Number | | Organization | | | | + +---------+ + + | [facility] DEPARTMENT OF | | | | [...] | + + + + + | [facility] | [address] | [place] [address] | | | SERVICES, CORE | KAYLEN [...] | | | LABORATORY | | | EMIRATI | | | SERVICES, | | | [...] [facility] | [address] | [place] [address] | | | SERVICES, CORE | [address] | | | + + + + + UA, JIMENA ONLY (2014 6:22 PM PDT) + + [...] [facility] | [address] | [place] [address] | | | SERVICES, CORE | PARK [...] [facility] | [address] | [place] [address] | | | SERVICES, CORE | PARK [...] | + + + + + | [facility] | [address] | [place] [address] | | | GABRIELLE MIRELES | [address] | | | + + + + + LACTATE (ART), POC (2014 1:21 PM PDT) + +---------+ + + + | Component | Value | Ref Range | Performed | Pathologist | | | | | At | Signature | + +---------+ + + + | LACTATE | 0.4 (L) | 0.5 - 1.6 | [facility] - | | | ARTERIAL, | | [...] PROSPER | [address] | [place], [place] | | | [facility]IE POINT [facility] CARE | [address] | [address] | | | TESTS | | | [...] CHENG | [address] | [place], [place] | | | MALINA NELSON OF CARE | [facility] | [address] | | | TESTS | | | [...] + + | [facility] | [address] | [place], [place] | | | MALINA NELSON OF BEL | [facility] | [address] | | | TESTS | | | | + + + + + GLUCOSE, POC (2014 1:21 PM PDT) + +---------+ + + + | Component | Value | Ref Range | Performed | Pathologist | | | | | At | Signature | + +---------+ + + + | GLUCOSE, | 110 (H) | 60 - 99 mg/dL | [facility] - | | | POC | | | SALLYAM | | | | | | MALINA [...] MARQUAM | [address] | [place], [place] | | | MALINA NELSON OF BEL | [facility] | [address] | | | TESTS | | | [...] CHENG | [address] | [place], [place] | | | [facility]IE POINT [facility] CARE | [address] | [address] | | | TESTS | | | [...] MARQUAM | [address] | [place], [place] | | | MALINA NELSON [facility] CARE | [address] | [address] | | | TESTS | | | [...] CHENG | [address] | [place], [place] | | | MALINA NELSON [facility] CARE | [address] | [address] | | | TESTS | | | [...] MARQUAM | [address] | [place], [place] | | | [facility] PO[facility]ARE | [address] | [address] | | | TESTS | | | [...] mass | | | | | | [id number] x 12 mm in | | | [...] | | | | signed / BERTA Toth | | | | [...] | + + + + + | [facility] | [address] | [place] [address] | | | SERVICES, | [address] [...] [facility] | [address] | [place] [address] | | | SERVICES, | [address] | | | | TRANSFUSION MEDICINE | | | | + + + + + INTRAOPERATIVE NEURO MONITORING (2014) + + + | Narrative | Performed At | + + + | Patient Name: Mendoza Villegas Date of : 1970 Medical | | | Record Number: [id number] Date of Test: 2014 Place of | | | Service: IP Intra Op (44) [id number] INTRAOPERATIVE NEURO | | | MONITORING History: [...] of | | | Neurology Suggested CPT: 62088 - IOM Remote x 3 hr(s) 53998 - | | | Short Latency EP's Upper AND Lower extremities 14881 - Central Motor | | | EP's Upper AND Lower extremities 40234 - EMG Cranial Bilateral - IOM | | | 29729 - Neuromuscular Junction Test Suggested Diagnosis: 237.5 [...] | | | | | | Nolberto Resendiz | | | | | | Afua, Ph.D. / | | | | | [...] Vijaya | | | | | | Almaz Resendiz, | | | | | | Afua,Ph.D./Neuropatholog | | | | | | ist [...] | + + + + + | [facility] | [address] | [place] [address] | | | PATHOLOGY | [address] [...] | | | | | NEEDED, Starting [facility] 10/25/14 at | | | | [...] | | | | | 1819, Until Calista 10/25/14 at 1344, | | | | | [...] | | | | | NEEDED, Starting Calista 10/25/14 | | PM PDT | | [...] | | CONTINUOUS, Starting Wed10/24/14 | | PM PDT | | | [...]
--- OUTSIDE RECORDS SUMMARY | ~2019-05-20 | XMS | Encounter Summary ---
Demographics + + + | Address | [address] | | | [place] [address] | + + + | Home Phone | | + + + | Preferred Language | Unknown | + + + | Marital Status | | + + + | Presybeterian Affiliation | LDS | + + + [...] Team Providers + +------+ + | Care Metrology Engineer Name | Role | Phone | [...] | | | 2015 | Event | [facility] | MD [address] | | | | | Admitting Desk | [address] | | | | | Located on the | | | | | | [facility] [address] | [address] | | | | | [address] | [phone] | | | | | | | | | | | [address] | | | +--------+ + + + [...]
--- OUTSIDE RECORDS SUMMARY | ~2019-05-20 | XMS | Encounter Summary ---
Demographics + + + | Address | [address] | | | [place] [address] | + + + | Home Phone | | + + + | Preferred Language | Unknown | + + + | Marital Status | | + + + | Religion Affiliation | LDS | + + + [...] Team Providers + +------+ + | Care Buttonholer Name | Role | Phone | + [...] Medication Refill | | 2014 | | [facility] [address] | [address] | | | | | [address] Mailcode: CH8N | [place], [place] | | | | | [facility] | [address] | | | | | and [address], | [phone] | | | | | [facility] | | | | | | Floor [place], [place] | | | | | | [address] | | | | | | [phone] | | | +--------+ + + + [...]
--- OUTSIDE RECORDS SUMMARY | ~2019-05-20 | XMS | Encounter Summary ---
Demographics + + + | Address | [address] | | | [place] [address] | + + + | Home Phone [...] Team Providers + +------+ + | Care Messenger Copy Name | Role | Phone | + [...] Phone Call | | 2017 | | [facility] [address] | [address] | | | | | [address] Mailcode: CH8N | [place], [place] | | | | | [facility] | [address] | | | | | and [address], | [phone] | | | | | [facility] | | | | | | Floor [facility] [place] | | | | | | [address] | | | | | | [phone] | | | +--------+ + + + [...]
--- OUTSIDE RECORDS SUMMARY | ~2019-05-20 | XMS | Encounter Summary ---
Demographics + + + | Address | [address] | | | [place] [address] | + + + | Home Phone [...] + + + | Author | [facility] | + + + | Organization | [facility] | + + + | Address [...] Team Providers + +------+ + | Care Hospital Admissions Officer Name | Role | Phone | + +------+ + | Ashwini Ochoa NP | PCP | | + +------+ + Encounter Details +--------+ + + + + | Date | Type | Department | Care Team | Description | +--------+ + + + + | 06/07/ | Document-Sc | Health Information | Unknown . | | | 2013 | anned | Services [address] | | | | | | [address] | | | | | | Mailcode: OP17A | | | | | | [facility] | | | | | | [place], [place] | | | | | | [address] | | | | | | [phone] | | | +--------+ + + + [...]
--- OUTSIDE RECORDS SUMMARY | ~2019-05-20 | XMS | Encounter Summary ---
Demographics + + + | Address | [address] | | | [place] [address] | + + + | Home Phone | | + + + | Preferred Language | Unknown | + + + | Marital Status | | + + + | Advent Affiliation | LDS | + + + | Race | White | + + + | Ethnic Group | Not or | + + + Author + + + | Author | [facility] | + + + | Organization | [facility] | + + + | [...] Team Providers + +------+ + | Care Motion Pictures Cartoonist Name | Role | Phone | + [...] Medication Refill | | 2014 | | [facility] [address] | [address] | | | | | Y[address] Mailcode: CH8N | [place], [place] | | | | | [facility] | [address] | | | | | and [address], | [phone] | | | | | [facility] | | | | | | Floor [place], [place] | | | | | | [address] | | | | | | [phone] | | | +--------+ + + + [...]
--- OUTSIDE RECORDS SUMMARY | ~2019-05-20 | XMS | Encounter Summary ---
Demographics + + + | Address | [address] | | | [place] [address] | + + + | Home Phone | | + + + | Preferred Language | Unknown | + + + | Marital Status | | + + + | Latter-Day Affiliation | LDS | + + + [...] Team Providers + +------+ + | Care Rn Documentation Specialist Name | Role | Phone | [...] | | [facility] | Diagnoses | Cetas, | Zzcdr | | | | | Bilateral | MD Cristopher | Genetics | | | | | leg edema | [address] | [address] [facility] | | | | | Procedures | Veterans | [facility] | | | | | CONSULT TO | Hospital | Rd Mailcode: | | | | | [facility] | Road | [facility] | | | | | GENETICS | [place], [place] | [place], [place] | | | | | | [address] | [address] | | | | | | Phone: | Phone: | | | | | | [phone] | [phone] | | | | | | Fax: | Fax: | | | | | | [phone] | [phone] | +--------+--------+ + + + + Diagnostic [...] | | | | Bilateral | Nury Harrell | Lab [address] | | | | | leg edema | [address] | [address] | | | | | Procedures | [address] | [address] | | | | | VASC LAB | [address] | Rd Mailcode: | | | | | VENOUS | [place], [place] | [address] | | | | | DUPLEX LOWER | [address] | Physician's | | | | | EXTREMITY | Phone: | Pavilion | | | | | BILAT COMP | [phone] | [place], [place] | | | | | | Fax: | [address] | | | | | | [phone] | Phone: | | | | | | | [phone] | | | | | | | Fax: | | | | | | | [phone] | +--------+--------+ + + + + Reason [...] edema | | 2015 | Visit | [facility] [address] | [address] | (Primary Dx) | | | | Ave Mailcode: CH8N | [place], [place] | | | | | [place] [facility] | [address] | | | | | and Healing, | [phone] | | | | | | | | | | | Floor [facility] [place] | | | | | | [address] | | | | | | [phone] | | | +--------+---------+ + + + [...] Cristopher Mckinney MD - 11/17/2014 2:21 PM PDTMs. 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 No CSF leak. Improved headaches. Please see Kate' note for details. I spent 15 minutes with the patient. 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 Nury Acosta PA - 11/16/2014 12:48 PM PDT NEUROLOGICAL SURGERY PROGRESS NOTE-POST OP Author: NURY HILL PA-C Attending: CRITSOPHER MCKINNEY MD Procedure Performed: 1. Suboccipital craniectomy [...] every six hours. Take 1 tablet by ne ut every 8 hours for 2 days. Take [...] 2) Contact our office or present to [facility] Emergency Department for severe headache [...] | | + +---------+ + + | [facility] DEPARTMENT OF | | | | | RADIOLOGY | | | | + +---------+ + + documented in this encounter Visit Diagnoses + + | Diagnosis | + + | Bilateral leg edema - Primary Edema | + + documented in this encounter
--- OUTSIDE RECORDS SUMMARY | ~2019-05-20 | XMS | Encounter Summary ---
Demographics + + + | Address | [address] | | | [place] [address] | + + + | Home Phone [...] Team Providers + +------+ + | Care Carpenter General Name | Role | Phone | + [...] Rd | | | | | | [place], [place] | | | | | | [address] | | | +--------+ + + + [...]
--- OUTSIDE RECORDS SUMMARY | ~2019-05-20 | XMS | Encounter Summary ---
Demographics + + + | Address | [address] | | | [place] [address] | + + + | Home Phone [...] + + + | Author | [facility] | + + + | Organization | [facility] | + + + | [...] Team Providers + +------+ + | Care Tire Specialist Name | Role | Phone | [...] Rd | | | | | | [place], [place] | | | | | | [address] | | | +--------+ + + + [...]
--- OUTSIDE RECORDS SUMMARY | ~2019-05-20 | XMS | Encounter Summary ---
Demographics + + + | Address | [address] | | | [place] [address] | + + + | Home Phone [...] Providers + +------+ + | Care Assistant County Attorney Name | Role | Phone | + +------+ + | Ashwini Ochoa ARMATURE REWINDER | PCP | | + +------+ + [...] | | | brain (HCC) | [address] | | | | | | Procedures | Avenue | | | | | | MRI BRAIN | [place], [place] | | | | | | TUMOR | [address] | | | | | | EVALUATION | Phone: | | | | | | WWO CONTRAST | [phone] | | | | | | | Fax: | | | | | | | [phone] | | +--------+--------+ + + + + [...] Graham MD | Radiology Order | | 2017 | | [facility] [address] | [address] [facility] | | | | | [address] Mailcode: CH8N | [place], [place] | | | | | [facility] | [address] | | | | | and Healing, | [phone] | | | | | | | | | | | Floor [place], [place] | | | | | | [address] | | | | | | [phone] | | | +--------+ + + + [...]
--- OUTSIDE RECORDS SUMMARY | ~2019-05-20 | XMS | Encounter Summary ---
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 | | | | [address] | | FS, ??? 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 on 2014 for the procedures described [...] at 9:30am. We are located at the [facility], 8th floo r. Address: [address] [place] [address]. Please call [phone] for questions o r concerns. 2. Follow up with your PCP to review your hospital course and medication changes. Please call to schedule this appointment. Future Appointments Date & Time Provider Department Dept Phone Center 11/09/2014 9:30 AM Bart Graham Neurosurgery at [facility] [phone] Neurosurgery Discharging Physician: JAIME HOWARD MD Attending [...] | | | 14 | | | release(/ANNA) | | | [...] 14 | | | | bedtime. 2 qdnz=678 | | | | | | | [...] Intake/Output Summary (Last 24 hours) at 10/27/14 5375 Last data filed at 10/27/14 0800 Gross [...] issues Jaime Howard MD Neurosurgery Resident Pager #[phone] MEDICATIONS Current Facility-Administered Medications Medication acetaminophen (TYLENOL) [...] 7NSICU ATTENDING NEUROINTENSIVIST PROGRESS NOTE Team Pager: [phone] Attendin -------- EVENING NOTE -------- Date:10/25/2014 Critical [...] s/s of infection # Bipolar: Restart Wellbutrin, [place], Duloxetine, Ziprasidone, and lorazepam (prn) # Lines: CVL (subclavian), matos, PIV - d/c amtos Relevant Risks: This patient is currently at risk for the following: cerebral edema, hydroc ephalus, intracerebral hemorrhage and seizure; central line associated blood stream infectio n, DVT/Pulmonary embolism, ICU delirium and UTI. I spent 30 minutes actively involved in the care and management of this patient. Sachin Ward MD [facility] DEPARTMENT: [id number] ICU NEURO Place of Service:- Inpatient Date of Service: 10/25/2014 CSN: [id number] Suggested Modifier: None Suggested CPT: TO SOFTWARE ENGINEERING PROJECT MANAGER RELEVANT DATA: Last Vitals: BP 112/66 | [...] charting, and discussion with treatment decision maker. [facility] DEPARTMENT: [id number] CRITICAL CARE Place of Service: Inpatient Date of Service: 10/25/2014 CSN: [id number] Suggested Level of Care: 56972 - CRITICAL CARE, 1ST HOUR EACH DAY [...] MRI -dexamethasone 4mg q6--slow taper ordered. -medication SALES SOLUTIONS REPRESENTATIVE: Geodon 160mg qHS, tramadol 50mg q6hr prn [...] for [place] - Diet: Regular diet - NSICU bowel protocol - MIVF: Normal saline w/ [...] oxycodone, dilaudid PRN Sedation: not indicated Th[facility]rophylaxis: [facility] Head of bed: 45 degrees Ulcer prophylaxis: [...] ab ove assessment and plan. VALENTINA CASTANON [facility] DEPARTMENT: [id number] ICU NEURO Place of Service:- Inpatient Date of Service: 10/25/2014 CSN: [id number] Suggested Modifier: None Suggested CPT: TO SOFTWARE ENGINEERING PROJECT MANAGER Kareen Martinez MD - 2014 6:49 PM [...] - 2014 6:19 PM PDT 7NSICU ATTENDING LAB NURSE DAILY PROGRESS NOTE Team Pager: [phone] Attendin Date:2014 Critical Care Attending Physician: SACHIN [...] with the primary team and the consultants [facility] ed. (Relevant data is listed at the bottom of this note). CC / Hx / Last 24hr: s/p 1) Suboccipital craniectomy and C1 laminectomy 2) Resection of fo urth ventricular mass; Tium mesh cranioplasty Patient Active Problem List Diagnosis Neoplasm of brain PMH: Bipolar, anxiety, headaches , GERD, asthma Home meds: Ziprasidone, Tramadol, Topiramate, Lorazepam, [place], Lansoprazole, Dilaudid, Celecoxib, g abapentin, duloxetine, bupropion, [...] opioids: continue gabapentin # Bipolar: Restart Wellbutrin, [place], Duloxetine, Ziprasidone, and lorazepam (prn) # Lines: arterial line, CVL (subclavian), matos, PIV Relevant Risks: This patient is currently at risk for the following: cerebral edema, hy drocephalus, intracerebral hemorrhage and seizure; central line associated blood stream infe ction, DVT/Pulmonary embolism, ICU delirium and UTI. I spent 65 minutes actively involved in the care and management of this patient. Sachin Ward MD [facility] DEPARTMENT: [id number] ICU NEURO Place of Service:- Inpatient Date of Service: erEDICAL RECORD NUMBER [id number] CSN: [id number] Suggested Modifier: None Suggested CPT: TO SOFTWARE ENGINEERING PROJECT MANAGER RELEVANT DATA: Last Vitals: BP 139/80 | Pulse 79 | Temp 36.8 C (98.2 F) | RR 16 | Ht 1.537 m (5' 0.5") | Wt 92 kg (202 lb 13.2 oz) | SpO2 98% | BMI 38.94 kg/(m^2) Intake/Output Summary (Last 24 hours) at 10/24/141818 Last data filed at 10/24/14 1715 Gross [...] MARQUAM | [address] | [place], [place] | | | LESLIE POINT OF CARE | [address] | [address] | | | TESTS | | | [...] + + + | MYRIAM CHENG | [address] | [place], [place] | | | MALINA NELSON OF [facility] | [address] | [address] | | | TESTS | | | [...] [facility] | [address] | [place] [address] | | | SERVICES, CORE | PARK [...] | | | LABORATORY | | | GUATEMALAN | | | SERVICES, | | | [...] | + + + + + | [facility] | [address] | [place] [address] | | | GABRIELLE MIRELES | KAYLEN [...] MARQUAM | [address] | [place], [place] | | | MALINA NELSON OF CARE | [facility] | [address] | | | TESTS | | | [...] MARQUAM | [address] | [place], [place] | | | MALINA NELSON OF CARE | [address] | [address] | | | TESTS | | | [...] CHENG | [address] | [place], [place] | | | MALINA NELSON OF BEL | [facility] | [address] | | | TESTS | | | [...] | + + + + + | [facility] | [address] [facility] | [place] [address] | | | SERVICES, CORE | KAYLEN [...] | | | LABORATORY | | | GUATEMALAN | | | SERVICES, | | | [...] [facility] | [address] | [place] [address] | | | CHI, GABRIELLE | KAYLEN [...] MARQUAM | [address] | [place], [place] | | | MALINA NELSON OF BEL | [facility] | [address] | | | TESTS | | | [...] CHENG | [address] | [place], [place] | | | MALINA NELSON OF CARE | [address] | [address] | | | TESTS | | | [...] MARLIZAM | [address] | [place] | | | LESLIE POINT OF CARE | [address] | [address] | | | TESTS | | | [...] + + + + + | MYRIAM SALLY | [address] [facility] | [place], [place] | | | [facility] | [address] | [address] | | | TESTS | | | | + + + + + OPERATION RECORD (10/26/2014 9:22 AM PDT) + + | Transcriptions | + + | Bart Graham MD - 2014 10:30 PM PDT Date of Service: 2014 Attending | | Surgeon: Bart Graham MD Computer Security Coordinator(s): Brady Conroy MD, | | PhD. 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 Her arms were tucked at her sides and all pressure | | points were carefully padded. We then registered the [employer]istas frameless stereotactic | | navigation system with [...] curette with Kerrison punches. We used a [place] dissector to | | carefully dissect the [...] the subarachnoid space. We then used a Mcdonald | | elevator and opened the dura [...] were removed. She was removed from the [place] head of sales | | and flipped into the supine [...] 2014 | | 18:04:22DT: 2014 22:30:30Job #: [id number] | + + CAPILLARY BLOOD GLUCOSE (NO [...] MARQUAM | [address] | [place], [place] | | | MALINA NELSON OF CARE | [address] | [address] | | | TESTS | | | [...] PROSPER | [address] | [place], [place] | | | [facility] | [address] | [address] | | | TESTS | | | [...] [facility] | [address] | [place] [address] | | | SERVICES, CORE | PARK [...] | | | LABORATORY | | | GUATEMALAN | | | SERVICES, | | | [...] HOSPITAL LABORATORY | [address] | [place] [address] | | | SERVICES, CORE | KAYLEN [...] CHENG | [address] | [place], [place] | | | MALINA NELSON OF BEL | [facility] | [address] | | | TESTS | | | [...] MARQUAM | [address] | [place], [place] | | | MALINA NELSON OF CARE | [address] | [address] | | | TESTS | | | [...] PROSPER | [address] | [place], [place] | | | PAULINA NELSON | [address] | [address] | | | TESTS | | | [...] CHENG | [address] | [place], [place] | | | MALINA NELSON OF BEL | [facility] | [address] | | | TESTS | | | [...] | + + + + + | [facility] | [address] | [place] [address] | | | SERVICES, SPECIAL | PARK [...] [facility] | [address] | [place] [address] | | | SERVICES, CORE | PARK [...] | | | LABORATORY | | | GUATEMALAN | | | SERVICES, | | | [...] + + | [facility] | [address] [facility] | [place] [address] | | | SERVICES, CORE | KAYLEN [...] | | | | | | contrast. [id number] | | | | | | reformatted [...] [facility] | [address] | [place] [address] | | | SERVICES, CORE | PARK [...] | | | LABORATORY | | | GUATEMALAN | | | SERVICES, | | | [...] | + + + + + | [facility] | [address] | [place] [address] | | | SERVICES, CORE | [address] | | | + + + + + JIMENA BUSTAMANTE (2014 6:22 PM PDT) + + + [...] [facility] | [address] | [place] [address] | | | SERVICES, CORE | PARK [...] | + + + + + | [facility] | [address] | [place] [address] | | | SERVICES, CORE | PARK [...] HOSPITAL LABORATORY | [address] | [place] [address] | | | SERVICES, CORE | KAYLEN [...] CHENG | [address] | [place], [place] | | | MALINA NELSON OF CARE | [address] | [address] | | | TESTS | | | [...] MARQUAM | [address] | [place], [place] | | | MALINA NELSON OF CARE | [address] | [address] | | | TESTS | | | [...] PROSPER | [address] | [place], [place] | | | MALINA NELSON OF CARE | [facility] | [address] | | | TESTS | | | [...] CHENG | [address] | [place], [place] | | | [facility] | [facility] | [address] | | | TESTS | | | [...] PROSPER | [address] | [place], [place] | | | MALINA NELSON OF BEL | [address] | [address] | | | TESTS | | | [...] + | [facility] | [address] | [place], [place] | | | MALINA NELSON OF CARE | [address] | [address] | | | TESTS | | | [...] MARQUAM | | | | | | LESLIE, POINT | | [...] CHENG | [address] | [place], [place] | | | LESLIE POINT OF CARE | [address] | [address] | | | TESTS | | | [...] + + | MYRIAM CHENG | [address] | [place], [place] | | | [facility] | [address] | [address] | | | TESTS | | | [...] mass | | | | | | [id number] x 12 mm in | | | [...] | + + + + + | [facility] | [address] | [place] [address] | | | SERVICES, | [address] [...] | + + + + + | [facility] | [address] [facility] | [place] [address] | | | SERVICES, | [address] | | | | TRANSFUSION MEDICINE | | | | + + + + + INTRAOPERATIVE NEURO MONITORING (2014) + + + | Narrative | Performed At | + + + | Patient Name: Menodza Villegas Date of : 1970 Medical | | | Record Number: [id number] Date of Test: 2014 Place of | | | Service: IP Intra Op (97) [id number] - [id number] INTRAOPERATIVE NEURO | | | MONITORING History: [...] of | | | Neurology Suggested CPT: 01221 - IOM Remote x 3 hr(s) 96610 - | | | Short Latency EP's Upper AND Lower extremities 96540 - Central Motor | | | EP's Upper AND Lower extremities 24019 - EMG Cranial Bilateral - IOM | | | 84420 - Neuromuscular Junction Test Suggested Diagnosis: 237.5 [...] Neuropathology | | | | | | fellowMarjorie Almaz Resendiz, | | | | | [...] Resendiz, | | | | | | M.D.,Ph.D./Neuropatholog [...] [facility] | [address] | [place] [address] | | | PATHOLOGY | [address] [...]
--- OUTSIDE RECORDS SUMMARY | ~2019-05-20 | XMS | Encounter Summary ---
Demographics + + + | Address | [address] | | | [place] [address] | + + + | Home Phone [...] Team Providers + +------+ + | Care Shoe Repair Cobbler Name | Role | Phone | + +------+ + | Ashwini Ochoa TECHNICAL SUPPORT INTERN | PCP | | + +------+ + [...] Neoplasm of | [address], [place] [address] | | | | | brain (HCC) | [address] | [address] | | | | | Procedures | [address] | Rd | | | | | MRI BRAIN | Rd | Mailcode: | | | | | W CONTRAST - | [facility] [place] | [address] | | | | | FRAMELESS | [address] | Martina | | | | | STEREOTATIC | Phone: | Research | | | | | ONLY [place] MRI | [phone] | Center | | | | | BRAIN | Fax: | [place], [place] | | | | | CONTRAST | [phone] | [address] | | | | | | | Phone: | | | | | | | [phone] | | | | | | | Fax: | | | | | | | [phone] | +--------+--------+ + + + + Reason [...] Graham MD | Radiology Order | | 2014 | on | [facility] [address] | [address] | | | | | [address] Mailcode: CH8N | [place], [place] | | | | | [facility] | [address] | | | | | and Clarisse, | [phone] | | | | | [facility] | | | | | | Floor [place], [place] | | | | | | [address] | | | | | | [phone] | | | +--------+ + + + [...]
--- OUTSIDE RECORDS SUMMARY | ~2019-05-20 | XMS | Encounter Summary ---
Demographics + + + | Address | [address] | | | [place] [address] | + + + | Home Phone [...] Providers + +------+ + | Care Manager Psychiatry Name | Role | Phone | + [...] Rd | | | | | | [place], [place] | | | | | | [address] | | | +--------+ + + + [...]
--- OUTSIDE RECORDS SUMMARY | ~2019-05-20 | XMS | Clinical Summary ---
Demographics + + + | Address | [address] | | | [place] [address] | + + + | Home Phone [...] + + +---------+ + | Keya | NOLBERTO | Unknown | | | Moira | | | | + + +---------+ + Care Team Providers + +------+ + | Care Frameman Name | Role | Phone | + +------+ + | Ashwini Ochoa NP | PCP | | + +------+ + Source Comments MYRIAM is fully live on both [facility] and [facility] Allergies + + + + + + [...] | e | | | bedtime. 2 mqul=441 | | | 14 | | | [...] 12/29/ | DURS33 | | 3 - [id number]: Qty: | | Head | LIFESCIENCE | | 2017 | 91 / | | 1 on 2014 by Santos, | | | S | | | /[id number] | | MD Bart at [facility]IENT | | | | | | 70 | | REV LOC | | | | | | | + +------+-------+ +--------+--------+--------+ | Mesh Contour [id number] | | N/A: | [employer] | | | 04.503 | | Malleable Matrix Neuro - | | Head | | | | .083 / | | [id number]: Qty: 1 on | | | | | | / | | 2014 by Bart Graham, | | | | | | | | MD at [facility] REV LOC | | | | | | | + +------+-------+ +--------+--------+--------+ | Screw 04mm Ti Self-Drill | | N/A: | [employer] [place] | | | 04.503 | | Matrix Neuro - | | Head | | | | .104.0 | | [id number]: Qty: 6 on | | | | | | 1 / / | | 2014 by Bart Graham, | | | | | | | | MD at [facility] REV LOC | | | | | [...] BLUE | BCBS | [phone] | | [phone] | [address] | PPO | | SHIELD | OUT OF | x | [phone] | 8 | [address] | | | | STATE | | esent | | [place], | | | | | | | | [place] | | | | | | | | [address] | | + +--------+ +--------+ + +------+ + +--------+ +--------+ + + | Guarantor Name | Accoun | Relation to | Date | Phone | Billing Address | | | t Type | Patient | of | | | | | | | | | | + +--------+ +--------+ + + | Mendoza Villegas | Person | Self [birth year] | [address] | | | al/Chris | | 1971 | [phone] | [place] | | | meredith | | | 1 (Home) | [address] | + +--------+ +--------+ + + Advance [...]
--- OUTSIDE RECORDS SUMMARY | ~2019-05-20 | XMS | Encounter Summary ---
Demographics + + + | Address | [address] | | | [place] [address] | + + + | Home Phone [...] Team Providers + +------+ + | Care Intake Nurse Name | Role | Phone | [...] Preoperative | | Pre-op evaluation | | 2014 | cheduled | [facility] Clinic at | | | | | | [facility] 4th Floor Day | | | | | | Stay [address] [facility] | | | | | | [address] | | | | | | Mailcode: UHN65 | | | | | | Colleen Mobley | | | | | | [address] [place], [place] | | | | | | [address] | | | | | | [phone] | | | +--------+ + + + [...] | | | 2 | | reviewed, PARTere held, anesthetic plan made or approved by [...] Wade RN | | Arteri | | [place], [place] | | | al | | | [...] RETIRE | 10/24/14; 1318; 10/26/14; 1023; | 10/24/148 by | 10/26/14 1023 by | | [...] mg by mouth once daily in the mor charles. TRAMADOL 50 MG TABLET Take 50 [...] by mouth once daily at bedtime. 2 seut=672 mg CHILDREN'S MULTI-VIT GUMMIES ORAL Take by [...] perfume, lotions or powder. Remove any nail macedonian from at least one fingernail. Do not [...] your procedure. Surgery Check in Locations Admitting [facility] Surgery Check in Time: Someone from your surgeon's office or [facility] will provide you with information regarding [...] it is after office hours, call the [facility] chipper machine operator at [phone] and ask them to page your doc tor. documented in this encounter Plan of Treatment Not on filedocumented as of this encounter Visit Diagnoses Not on filedocumented in this encounter"
--- OUTSIDE RECORDS SUMMARY | ~2019-05-20 | XMS | Encounter Summary ---
Demographics + + + | Address | [address] | | | [place] [address] | + + + | Home Phone [...] Team Providers + +------+ + | Care Door To Door Selling Agent Name | Role | Phone | + +------+ + | Ashwini Ochoa DIRECTOR OF DIAGNOSTIC IMAGING | PCP | | + +------+ + Reason for Referral Diagnostic Testing (Routine) +--------+--------+ + + + + | Status | Reason | Specialty | Diagnoses / | Referred By | Referred To | | | | | Procedures | Contact | Contact | +--------+--------+ + + + + | Closed | | Radiology | Diagnoses | Mackenzie | Megan Vasc | | | | | Bilateral | Chiquita Harrell | Lab [address] | | | | | leg edema | [place] [address] | [address] | | | | | Procedures | Bill Bell | [address] | | | | | VASC LAB | [address] | Misha Mailcode: | | | | | VENOUS | [place], [place] | [address] | | | | | DUPLEX LOWER | [address] | Physician's | | | | | EXTREMITY | Phone: | Pavilion | | | | | BILAT COMP | [phone] | [place], [place] | | | | | | Fax: | [address] | | | | | | [phone] | Phone: | | | | | | | [phone] | | | | | | | Fax: | | | | | | | [phone] | +--------+--------+ + + + + Reason [...] | | Procedures | Bill Bell | Perry Karis | | | | | VASC LAB | [address] | Rd Mailcode: | | | | | VENOUS | [place], [place] | [address] | | | | | DUPLEX LOWER | [address] | Physician's | | | | | EXTREMITY | Phone: | Pavilion | | | | | BILAT COMP | [phone] | [place], [place] | | | | | | Fax: | [address] | | | | | | [phone] | Phone: | | | | | | | [phone] | | | | | | | Fax: | | | | | | | [phone] | +--------+--------+ + + + + Encounter [...] Physician's | | | | | | Leandra [place], | | | | | | [place] [address] | | | | | | [phone] | | | +--------+ + + + [...] | | | 14 | | | release(/) | | | | | | + [...] 14 | | | | bedtime. 2 yazu=658 | | | | | | | [...] 1 tablet by | | 0 | 03/29/20 | | | 8.6-50 mg oral | [...]
--- OUTSIDE RECORDS SUMMARY | ~2019-05-20 | XMS | Encounter Summary ---
Demographics + + + | Address | [address] | | | [place] [address] | + + + | Home Phone [...] Team Providers + +------+ + | Care Armed Security Professional Name | Role | Phone | + [...] Rd | | | | | | [place], [place] | | | | | | [address] | | | +--------+ + + + [...]
--- OUTSIDE RECORDS SUMMARY | ~2019-05-20 | XMS | Clinical Summary ---
Demographics + + + | Address | [address] | | | [place] [address] | + + + | Home Phone | | + + + | Preferred Language | Unknown | + + + | Marital Status | | + + + | Episcopalian Affiliation | 1027 | + + + | Race | Unknown | + + + | Ethnic Group | Unknown | + + + Author + + + | Author | [facility] | | | and Lius Danielana | + + + | Organization | [facility] | | [...] Team Providers + +------+ + | Care Hide And Skin Classer Name | Role | Phone | + [...] 0 | | | Activ | | [id number] | as needed (pain). | | | [...] +-------+--------+ +--------+-------+---------+------+ | BCBS | BCBS | [id number] | | | | PPO | | [...] meredith | | | 1 (Home) | [address] | + +--------+ +--------+ + + Advance Directives Patient has advance care planning documents on file. For more information, please contact:[facility]entina [facility] [place] [address]"
--- OUTSIDE RECORDS SUMMARY | ~2019-05-20 | XMS | Encounter Summary ---
Demographics + + + | Address | [address] | | | [place] [address] | + + + | Home Phone [...] Team Providers + +------+ + | Care Black Ash Worker Name | Role | Phone | + +------+ + | Ashwini Ochoa NP | PCP | | + +------+ + Encounter Details +--------+ + + + + | Date | Type | Department | Care Team | Description | +--------+ + + + + | 03/06/ | Document-Sc | Health Information | Unknown . | | | 2013 | anned | Services [address] | | | | | | [address] | | | | | | Mailcode: OP17A | | | | | | [facility] | | | | | | [place], [place] | | | | | | [address] | | | | | | [phone] | | | +--------+ + + + [...]
--- OUTSIDE RECORDS SUMMARY | ~2019-05-20 | XMS | Encounter Summary ---
Demographics + + + | Address | [address] | | | [place] [address] | + + + | Home Phone [...] Team Providers + +------+ + | Care Banbury Machine Operator Name | Role | Phone [...] | | | | | Karis Cabral [place], | | | | | | [place] [address] | | | +--------+ + + + [...]
--- OUTSIDE RECORDS SUMMARY | ~2019-05-20 | XMS | Encounter Summary ---
Demographics + + + | Address | [address] | | | [place] [address] | + + + | Home Phone [...] Team Providers + +------+ + | Care Cosmetics Presser Name | Role | Phone | [...] MRI Results | | 2017 | | [facility] [address] | [address] [place] | | | | | [place] Mailcode: CH8N | [place], [place] | | | | [facility] | [address] | | | | | and Healing, | [phone] | | | | | Building | | | | | | Floor [place], [place] | | | | | | [address] | | | | | | [phone] | | | +--------+ + + + [...]
--- OUTSIDE RECORDS SUMMARY | ~2019-05-20 | XMS | Encounter Summary ---
Demographics + + + | Address | [address] | | | [place] [address] | + + + | Home Phone [...] Providers + +------+ + | Care Tax Examining Technician Name | Role | Phone | + +------+ + | Ashwini Ochoa NP | PCP | | + +------+ + Encounter Details +--------+ + + + + | Date | Type | Department | Care Team | Description | +--------+ + + + + | 08/28/ | Document-Sc | UNKNOWN DEPARTMENT | Other, Faculty | | | 2015 | anned | [address] [facility] | [phone] | | | | | [address] | | | | | | [place], [place] | | | | | | [address] | | | +--------+ + + + [...]
--- OUTSIDE RECORDS SUMMARY | ~2019-05-20 | XMS | Encounter Summary ---
Demographics + + + | Address | [address] | | | [place] [address] | + + + | Home Phone | | + + + | Preferred Language | Unknown | + + + | Marital Status | | + + + | Confucianist Affiliation | LDS | + + + [...] Providers + +------+ + | Care Environmental Aide Name | Role | Phone | + [...] + + | 10/24/ | Hospital | [facility] [address] | Bart Graham MD | | | 2015 - | Encounter | [address] | [address] [facility] | | | | | [id number] NESSA | [place], [place] | | | 10/28/ | | [place], | [address] | | | 2015 | | [place] [address] | [phone] | | | | | [phone] | | | +--------+ + + + [...] 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 [...] at 9:30am. We are located at the [facility], [address] [place] [address]. Address: [address] [place] [address]. Please call [phone] for questions o r concerns. 2. Follow up with your PCP to review your hospital course and medication changes. Please call to schedule this appointment. Future Appointments Date & Time Provider Department Dept Phone Center 11/09/2014 9:30 AM Bart Graham Neurosurgery at [facility] [phone] Neurosurgery Discharging Physician: JAIME HOWARD MD Attending [...] 14 | | | | bedtime. 2 oxiu=191 | | | | | | | [...] issues Jaime Howard MD Neurosurgery Resident Pager #[phone] MEDICATIONS Current Facility-Administered Medications Medication acetaminophen (TYLENOL) [...] described in the r esident note. Sachin Malhorta MD - 7:35 PM PDT 7NSICU ATTENDING NEUROINTENSIVIST PROGRESS NOTE Team Pager: [phone] Attendin -------- EVENING NOTE -------- Date:10/25/2014 Critical [...] s/s of infection # Bipolar: Restart Wellbutrin, Richboro, Duloxetine, Ziprasidone, and lorazepam (prn) # Lines: [...] this patient. Sachin Ward MD [facility] DEPARTMENT: [id number] ICU NEURO Place of Service:- Inpatient Date of Service: 10/25/2014 CSN: [id number] Suggested Modifier: None Suggested CPT: TO DECORATOR LIGHTING FIXTURES RELEVANT DATA: Last Vitals: BP 112/66 | [...] discussion with treatment decision maker. [facility] DEPARTMENT: [id number] CRITICAL CARE Place of Service: Inpatient Date of Service: 10/25/2014 CSN: [id number] Suggested Level of Care: 48024 - CRITICAL CARE, 1ST HOUR EACH DAY [...] MRI -dexamethasone 4mg q6--slow taper ordered. -medication MASTER DYER: Geodon 160mg qHS, tramadol 50mg q6hr prn [...] for [place] - Diet: Regular [facility] - MIVF: Normal saline [...] ab ove assessment and plan. VALENTINA CASTANON [facility] DEPARTMENT: [id number] ICU NEURO Place of Service:- Inpatient Date of Service: 10/25/2014 CSN: [id number] Suggested Modifier: None Suggested CPT: TO DECORATOR LIGHTING FIXTURES OBuKareen yañez MD - 2014 6:49 PM [...] - 2014 6:19 PM PDT 7NSICU ATTENDING TISSUE COORDINATOR DAILY PROGRESS NOTE Team Pager: [phone] Attendin Date:2014 Critical Care Attending Physician: SACHIN WADR MD Referring Attending Physician: Bart Graham MD I saw and evaluated the patient at the bedside together with Dr Oneil reviewed her finding s, all data and the recent imaging available. I agree with her assessment and the plan as do sally. I have discussed findings and plan of care with the primary team and the consultants [facility] ed. (Relevant data is listed at the bottom of this note). CC / Hx / Last 24hr: s/p 1) Suboccipital craniectomy and C1 laminectomy 2) Resection of fo urth ventricular mass; Tium mesh cranioplasty Patient Active Problem List Diagnosis Neoplasm of brain PMH: Bipolar, anxiety, headaches , GERD, asthma Home meds: Ziprasidone, Tramadol, Topiramate, Lorazepam, Richboro, Lansoprazole, Dilaudid, Celecoxib, g abapentin, duloxetine, bupropion, [...] opioids: continue gabapentin # Bipolar: Restart Wellbutrin, Rich[place], Duloxetine, Ziprasidone, and lorazepam (prn) # Lines: [...] this patient. Sachin Ward MD [facility] DEPARTMENT: [id number] ICU NEURO Place of Service:- Inpatient Date of Service: erEDICAL RECORD NUMBER [id number] CSN: [id number] Suggested Modifier: None Suggested CPT: TO DECORATOR LIGHTING FIXTURES RELEVANT DATA: Last Vitals: BP 139/80 | [...] SALLYAM | [address] | [place], [place] | | | MALINA NELSON OF BEL | [facility] | [address] | | | TESTS | | | [...] (H) | 60 - 99 mg/dL | [facility] - | | | GLUCOSE, | [...] CHENG | [address] | [place], [place] | | | MALINA NELSON OF [facility] | [address] | [address] | | | TESTS | | | [...] [facility] | [address] | [place] [address] | | | SERVICES, CORE | PARK [...] | | | LABORATORY | | | NIGERIAN | | | SERVICES, | | | [...] | + + + + + | [facility] | [address] | [place] [address] | | | SERVICES, CORE | KAYLEN [...] MARQUAM | [address] | [place], [place] | | | MALINA NELSON OF CARE | [address] | [address] | | | TESTS | | | [...] - MARLIZAM | [address] | [place], [place] | | | MALINA NELSON OF CARE | [address] | [address] | | | TESTS | | | [...] CHENG | [address] | [place], [place] | | | MALINA NELSON OF BEL | [address] | [address] | | | TESTS | | | [...] + + | [facility] | [address] [facility] | [place] [address] | | | SERVICES, CORE | PARK [...] | | | LABORATORY | | | NIGERIAN | | | SERVICES, | | | [...] 10 | 4 - 11 mmol/L | [facility] | | | GAP(ALB | | [...] | + + + + + | [facility] | [address] [facility] | [place] [address] | | | SERVICES, CORE | PARK [...] SALLYAM | [address] | [place], [place] | | | MALINA NELSON OF BEL | [facility] | [address] | | | TESTS | | | [...] (H) | 60 - 99 mg/dL | [facility] - | | | GLUCOSE, | [...] CHENG | [address] | [place], [place] | | | LESLIE POINT OF CARE | [address] | [address] | | | TESTS | | | [...] + + | Performing | Address | City/State/[facility] | Phone Number | | Organization | | | | + + + + + | [facility] | [address] | [place], [place] | | | MALINA NELSON OF [facility] | [address] | [address] | | | TESTS | | | [...] + + | [facility] | [address] [facility] [address] | [place], [place] | | | L[facility]IE [facility] | [address] | [address] | | | TESTS | | | | + + + + + OPERATION RECORD (10/26/2014 9:22 AM PDT) + + | Transcriptions | + + | Bart Graham MD - 2014 10:30 PM PDT Date of Service: 2014 Attending | | Surgeon: Bart Graham MD Vehicle Fare Collector(s): Brady Conroy MD, | | PhD. Preoperative [...] and she was placed in the Bhagat filter tank tender helper head and flipped into | | the prone position on chest rolls. Her arms were tucked at her sides and all pressure | | points were carefully padded. We then registered the Zyrra frameless stereotactic | | navigation system with [...] curette with Kerrison punches. We used a Rociada dissector to | | carefully dissect the [...] were removed. She was removed from the Villalba filter tank tender helper head | | and flipped into the [...] 2014 | | 18:04:22DT: 2014 22:30:30Job #: [id number] | + + CAPILLARY BLOOD GLUCOSE (NO [...] CHENG | [address] | [place], [place] | | | MALINA NELSON OF CARE | [facility] | [address] | | | TESTS | | | [...] PROSPER | [address] | [place], [place] | | | LESLIE POINT OF CARE | [facility] | [address] | | | TESTS | | | [...] [facility] | [address] | [place] [address] | | | SERVICES, CORE | KAYLEN [...] | | | LABORATORY | | | NIGERIAN | | | SERVICES, | | | [...] | + + + + + | [facility] | [address] | [place] [address] | | | SERVICES, CORE | KAYLEN [...] (H) | 60 - 99 mg/dL | [facility] - | | | GLUCOSE, | [...] CHENG | [address] | [place], [place] | | | MALINA NELSON OF BEL | [address] | [address] | | | TESTS | | | [...] MARQUAM | [address] | [place], [place] | | | LESLIE POINT OF CARE | [address] | [address] | | | TESTS | | | [...] PROSPER | [address] | [place], [place] | | | MALINA NELSON OF CARE | [address] | [address] | | | TESTS | | | [...] (H) | 60 - 99 mg/dL | [facility] - | | | GLUCOSE, | [...] CHENG | [address] | [place], [place] | | | MALINA NELSON OF BEL | [address] | [address] | | | TESTS | | | [...] | + + + + + | [facility] | [address] | [place] [address] | | | SERVICES, SPECIAL | PARK [...] [facility] | [address] | [place] [address] | | | SERVICES, CORE | PARK [...] | | | LABORATORY | | | NIGERIAN | | | SERVICES, | | | [...] | + + + + + | [facility] | [address] | [place] [address] | | | SERVICES, CORE | KAYLEN [...] | | | | | | contrast. [id number] | | | | | | reformatted [...] | | + +---------+ + + | [facility] DEPARTMENT OF | | | | | RADIOLOGY | | | | + +---------+ + + X-RAY PORTABLE CHEST 1 VIEW (2014 6:53 PM PDT) + + + + + + | Component | Value | Ref Range | Performed | Pathologist | | | | | At | Signature | + + + + + + | X-RAY | EXAM: PA CHEST 1 VIEW | | | | [...] | | + +---------+ + + | [facility] DEPARTMENT OF | | | | [...] | + + + + + | [facility] | [address] | [place] [address] | | | SERVICES, CORE | KAYLEN [...] | | | LABORATORY | | | NIGERIAN | | | SERVICES, | | | [...] [facility] | [address] | [place] [address] | | | SERVICES, CORE | PARK [...] [facility] | [address] | [place] [address] | | | SERVICES, CORE | PARK [...] [facility] | [address] | [place] [address] | | | SERVICES, CORE | PARK [...] | + + + + + | [facility] | [address] | [place] [address] | | | GABRIELLE MIRELES | [address] | | | + + + + + LACTATE (ART), POC (2014 1:21 PM PDT) + +---------+ + + + | Component | Value | Ref Range | Performed | Pathologist | | | | | At | Signature | + +---------+ + + + | LACTATE | 0.4 (L) | 0.5 - 1.6 | [facility] - | | | ARTERIAL, | [...] PROSPER | [address] | [place], [place] | | | LESLIE POINT OF CARE | [address] | [address] | | | TESTS | | | [...] CHENG | [address] | [place], [place] | | | MALINA NELSON OF CARE | [facility] | [address] | | | TESTS | | | [...] [facility] | [address] | [place], [place] | | | MALINA NELSON OF BEL | [facility] | [address] | | | TESTS | | | | + + + + + GLUCOSE, POC (2014 1:21 PM PDT) + +---------+ + + + | Component | Value | Ref Range | Performed | Pathologist | | | | | At | Signature | + +---------+ + + + | GLUCOSE, | 110 (H) | 60 - 99 mg/dL | [facility] - | | | POC | [...] MARQUAM | [address] | [place], [place] | | | MALINA NELSON OF BEL | [facility] | [address] | | | TESTS | | | [...] CHENG | [address] | [place], [place] | | | LESLIE POINT OF CARE | [address] | [address] | | | TESTS | | | [...] MARQUAM | [address] | [place], [place] | | | MALINA NELSON OF CARE | [address] | [address] | | | TESTS | | | [...] CHENG | [address] | [place], [place] | | | MALINA NELSON OF CARE | [address] | [address] | | | TESTS | | | [...] MARQUAM | [address] | [place], [place] | | | LESLIE POINT OF CARE | [address] | [address] | | | TESTS | | | [...] mass | | | | | | [id number] x 12 mm in | | | [...] | + + + + + | [facility] | [address] | [place] [address] | | | SERVICES, | [address] [...] [facility] | [address] | [place] [address] | | | SERVICES, | [address] | | | | TRANSFUSION MEDICINE | | | | + + + + + INTRAOPERATIVE NEURO MONITORING (2014) + + + | Narrative | Performed At | + + + | Patient Name: Mendoza Villegas Date of : 1970 Medical | | | Record Number: [id number] Date of Test: 2014 Place of | | | Service: IP Intra Op [phone]) [id number] - [id number] INTRAOPERATIVE NEURO | | | MONITORING History: [...] of | | | Neurology Suggested CPT: 19894 - IOM Remote x 3 hr(s) 57830 - | | | Short Latency EP's Upper AND Lower extremities 01704 - Central Motor | | | EP's Upper AND Lower extremities 09342 - EMG Cranial Bilateral - IOM | | | 88512 - Neuromuscular Junction Test Suggested Diagnosis: 237.5 [...] | + + + + + | [facility] | [address] | [place] [address] | | | PATHOLOGY | [address] [...] | | | | | NEEDED, Starting [facility] 10/25/14 at | | | | | [...]
--- OUTSIDE RECORDS SUMMARY | ~2019-05-20 | XMS | Encounter Summary ---
Demographics + + + | Address | [address] | | | [place] [address] | + + + | Home Phone | | + + + | Preferred Language | Unknown | + + + | Marital Status | | + + + | Amish Affiliation | LDS | + + + [...] Team Providers + +------+ + | Care Operator Control Room Name | Role | Phone | + +------+ + | Ashwini Ochoa NP | PCP | | + +------+ + Encounter Details +--------+ + + + + | Date | Type | Department | Care Team | Description | +--------+ + + + + | 10/18/ | Dairy Feed Worker | Neurosurgery at | Tali Jackson, | Neoplasm of brain | | 2015 | | [facility] [address] | [facility] [address] | ([facility]) (Primary Dx) | | | | [address] Mailcode: CH[address]N | [place], [place] | | | | | [facility] for [facility] | [address] | | | | | and Healing, | [phone] | | | | | | | | | | | Floor [place], [place] | | | | | | [address] | | | | | | [phone] | | | +--------+ + + + [...]
--- OUTSIDE RECORDS SUMMARY | ~2019-05-20 | XMS | Encounter Summary ---
Demographics + + + | Address | [address] | | | [place] [address] | + + + | Home Phone [...] Team Providers + +------+ + | Care Verification Manager Name | Role | Phone | + +------+ + | Ashwini Ochoa NP | PCP | | + +------+ + Encounter Details +--------+ + + + + | Date | Type | Department | Care Team | Description | +--------+ + + + + | 03/06/ | Document-Sc | Health Information | Unknown . | | | 2013 | anned | Services [address] | | | | | | [address] | | | | | | Mailcode: OP17A | | | | | | [facility] | | | | | | [place], [place] | | | | | | [address] | | | | | | [phone] | | | +--------+ + + + [...]
--- OUTSIDE RECORDS SUMMARY | ~2019-05-20 | XMS | Encounter Summary ---
Demographics + + + | Address | [address] | | | [place] [address] | + + + | Home Phone [...] Team Providers + +------+ + | Care Weed Eradicator Name | Role | Phone | + +------+ + | Ashwini Ochoa NP | PCP | | + +------+ + Encounter Details +--------+ + + + + | Date | Type | Department | Care Team | Description | +--------+ + + + + | 06/07/ | Document-Sc | Health Information | Unknown . | | | 2013 | anned | Services [address] | | | | | | [address] | | | | | | Mailcode: OP17A | | | | | | [facility] | | | | | | [place], [place] | | | | | | [address] | | | | | | [phone] | | | +--------+ + + + [...]
--- OUTSIDE RECORDS SUMMARY | ~2019-05-20 | XMS | Clinical Summary ---
Demographics + + + | Address | [address] | | | [place] [address] | + + + | Home Phone [...] Team Providers + +------+ + | Care Button Sewer Hand Name | Role | Phone | + +------+ + | Ashwini Ochoa NP | PCP | | + +------+ + Source Comments MYRIAM is fully live on both [facility] and [facility] Allergies + + + + + [...] | e | | | bedtime. 2 xwyp=527 | | | 14 | | | [...] 12/29/ | [id number] | | 3 - [id number]: Qty: | | Head | LIFESCIENCE | | 2017 | 91 / | | 1 on 2014 by Santos, | | | S | | | /[id number] | | MD Bart at [facility] | | | | | | 70 | | REV LOC | | | | | | | + +------+-------+ +--------+--------+--------+ | Mesh Contour [id number] | | N/A: | [employer] [place] | | | 04.503 | | Malleable Matrix Neuro - | | Head | | | | .083 / | | [id number]: Qty: 1 on | | | | | | / | | 2014 by Bart Graham, | | | | | | | | MD at [facility] REV LOC | | | | | | | + +------+-------+ +--------+--------+--------+ | Screw 04mm Ti Self-Drill | | N/A: | [employer] [place] | | | 04.503 | | Matrix Neuro - | | Head | | | | .104.0 | | [id number]: Qty: 6 on | | | | | | 1 / / | | 2014 by Bart Graham, | | | | | | | | MD at [facility] REV LOC | | | | | [...] BLUE | BCBS | [phone] | | [phone] | [address] | PPO | | SHIELD | OUT OF | x | [phone]-Pr | 8 | [address] | | | | STATE | | esent | | [place], | | | | | | | | [place] | | | | | | | | [address] | | + +--------+ +--------+ + +------+ [...] meredith | | | 1 (Home) | [address] | + +--------+ +--------+ + + Advance [...]
--- OUTSIDE RECORDS SUMMARY | ~2019-05-20 | XMS | Encounter Summary ---
Demographics + + + | Address | [address] | | | [place] [address] | + + + | Home Phone [...] Providers + +------+ + | Care Senior Data Analyst Name | Role | Phone | + +------+ + | Malvin Ramesh | PCP | | + +------+ + Encounter Details +--------+ + + + + | Date | Type | Department | Care Team | Description | +--------+ + + + + | 09/05/ | Document-Sc | UNKNOWN DEPARTMENT | Unknown . | | | 2015 | anned | [address] | | | | | | [address] | | | | | | [place], [place] | | | | | | [address] | | | +--------+ + + + [...]
--- OUTSIDE RECORDS SUMMARY | ~2019-05-20 | XMS | Encounter Summary ---
Demographics + + + | Address | [address] | | | [place] [address] | + + + | Home Phone [...] Team Providers + +------+ + | Care Records Specialist Name | Role | Phone | [...] | | | | | Stay [address] [facility] | | | | | | [address] | | | | | | Mailcode: [id number] | | | | | | Colleen Mobley | | | | | | [address] [place], [place] | | | | | | [address] | | | | | | [phone] | | | +--------+ + + + [...] Wade RN | | Arteri | | Garwood, MD | | | al | | [...] by mouth once daily at bedtime. 2 fjpf=060 mg [facility]'S MULTI-VIT GUMMIES ORAL Take by [...] perfume, lotions or powder. Remove any nail tamazight from at least one fingernail. Do not [...] your procedure. Surgery Check in Locations Admitting [facility] Surgery Check in Time: Someone from your surgeon's office or [facility] will provide you with information [...] it is after office hours, call the [facility] ribbing machine operator at [phone] and ask them to page your doc tor. documented in this encounter Plan of Treatment Not on filedocumented as of this encounter Visit Diagnoses Not on filedocumented in this encounter"
--- OUTSIDE RECORDS SUMMARY | ~2019-05-20 | XMS | Encounter Summary ---
Demographics + + + | Address | [address] | | | [place] [address] | + + + | Home Phone [...] Team Providers + +------+ + | Care Library Specialist Name | Role | Phone | [...] Rd | | | | | | [place], [place] | | | | | | [address] | | | +--------+ + + + [...]
--- OUTSIDE RECORDS SUMMARY | ~2019-05-20 | XMS | Encounter Summary ---
Demographics + + + | Address | [address] | | | [place] [address] | + + + | Home Phone | | + + + | Preferred Language | Unknown | + + + | Marital Status | | + + + | Episcopalian Affiliation | LDS | + + + [...] Team Providers + +------+ + | Care Transition Of Care Specialist Name | Role | Phone | + +------+ + | Ashwini Ochao TELEPHONE OPERATOR | PCP | | + +------+ + [...] | | | | Subependymom | [place] [address] | | | | | | asad (HCC) | [address] | | | | | | Procedures | Karis Cabral | | | | | | MRI BRAIN | [place], [place] | | | | | | TUMOR | [address] | | | | | | EVALUATION | Phone: | | | | | | WWO CONTRAST | [phone] | | | | | | | Fax: | | | | | | | [phone] | | +--------+--------+ + + + + [...] (HCC) | | 2015 | Visit | [facility] [address] | [address] | (Primary Dx) | | | | Ave Mailcode: CH8N | [place], [place] | | | | | [place] for [facility] | [address] | | | | | and Healing, | [phone] | | | | | | | | | | | Floor [place], [place] | | | | | | [address] | | | | | | [phone] | | | +--------+---------+ + + + [...] six hours. Take 1 tablet by [facility] every 8 hours for 2 days. [...] also contact us to fax referral for [facility] in [facility]. 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
--- OUTSIDE RECORDS SUMMARY | ~2019-05-20 | XMS | Encounter Summary ---
Demographics + + + | Address | [address] | | | [place] [address] | + + + | Home Phone [...] Team Providers + +------+ + | Care Linoleum Layer Apprentice Name | Role | Phone | [...] leg edema | [address] | [address] [facility] | | | | | Procedures | Veterans | [facility] | | | | | CONSULT TO | Hospital | Rd Mailcode: | | | | | [facility] | Road | [facility] | | | | | GENETICS | [place], [place] | [place], [place] | | | | | | [address] | [address] | | | | | | Phone: | Phone: | | | | | | [phone] | [phone] | | | | | | Fax: | Fax: | | | | | | [phone] | [phone] | +--------+--------+ + + + + Diagnostic [...] | | | | | VENOUS | [place], [place] | [address] | | | | | DUPLEX LOWER | [address] | Physician's | | | | | EXTREMITY | Phone: | Pavilion | | | | | BILAT COMP | [phone] | [place], [place] | | | | | | Fax: | [address] | | | | | | [phone] | Phone: | | | | | | | [phone] | | | | | | | Fax: | | | | | | | [phone] | +--------+--------+ + + + + Reason [...] edema | | 2015 | Visit | [facility] [address] | [address] | (Primary Dx) | | | | Ave Mailcode: CH8N | [place], [place] | | | | | [place] for [facility] | [address] | | | | | and Healing, | [phone] | | | | | | | | | | | Floor [facility] [place] | | | | | | [address] | | | | | | [phone] | | | +--------+---------+ + + + [...] every six hours. Take 1 tablet by nv ut every 8 hours for 2 days. [...] 2) Contact our office or present to [facility] Emergency Department for severe [...] | | + +---------+ + + | [facility] DEPARTMENT OF | | | | | RADIOLOGY | | | | + +---------+ + + documented in this encounter Visit Diagnoses + + | Diagnosis | + + | Bilateral leg edema - Primary Edema | + + documented in this encounter
--- OUTSIDE RECORDS SUMMARY | ~2019-05-20 | XMS | Encounter Summary ---
Demographics + + + | Address | [address] | | | [place] [address] | + + + | Home Phone [...] Providers + +------+ + | Care Bar Helper Name | Role | Phone | + +------+ + | Ashwini Ochoa NP | PCP | | + +------+ + Encounter Details +--------+ + + + + | Date | Type | Department | Care Team | Description | +--------+ + + + + | 11/10/ | Telephone | Neurosurgery at | Shar [place], | | | 2014 | | [facility] [address] | [address] | | | | | [address] Mailcode: CH8N | [address] | | | | | [facility] | [place], [place] | | | | | [place], | [address] | | | | | | [phone] | | | | | Floor [place], [place] | | | | | | [address] | | | | | | [phone] | | | +--------+ + + + [...]
--- OUTSIDE RECORDS SUMMARY | ~2019-05-20 | XMS | Encounter Summary ---
Demographics + + + | Address | [address] | | | [place] [address] | + + + | Home Phone [...] Team Providers + +------+ + | Care Public Relations Consultant Name | Role | Phone | [...] Board | | 2014 | on | [facility] [address] | ,PhD [address] | Recommendation | | | | Ave Mailcode: CH8N | [address] | | | | | [facility] | [place], [place] | | | | | [place], | [address] | | | | | [facility] | [phone] | | | | | Floor [place], [place] | | | | | | [address] | | | | | | [phone] | | | +--------+ + + + [...]
--- OUTSIDE RECORDS SUMMARY | ~2019-05-20 | XMS | Encounter Summary ---
Demographics + + + | Address | [address] | | | [place] [address] | + + + | Home Phone | | + + + | Preferred Language | Unknown | + + + | Marital Status | | + + + | Jain Affiliation | LDS | + + + [...] Providers + +------+ + | Care Revenue Accountant Name | Role | Phone | [...] Rd | | | | | | [place], [place] | | | | | | [address] | | | +--------+ + + + [...] | + + | Raj [facility] - 10/22/2014 11:11 AM PDT | + + | Raj Faculty - 10/22/2014 11:11 AM PDT | + + | Raj Faculty - 10/22/2014 11:11 AM PDT | + + documented in this encounter Visit Diagnoses Not on filedocumented in this encounter"
--- OUTSIDE RECORDS SUMMARY | ~2019-05-20 | XMS | Encounter Summary ---
Demographics + + + | Address | [address] | | | [place] [address] | + + + | Home Phone [...] Team Providers + +------+ + | Care Ibm Bpm Architect Name | Role | Phone | + +------+ + | Ashwini Ochoa TOOL SMITH | PCP | | + +------+ + [...] | | | | MRI BRAIN | [place], [place] | | | | | | TUMOR | [address] | | | | | | EVALUATION | Phone: | | | | | | WWO CONTRAST | [phone] | | | | | | | Fax: | | | | | | | [phone] | | +--------+--------+ + + + + [...] Radiology Order | | 2017 | | [facility] [address] | [address] [facility] | | | | | [address] Mailcode: CH8N | [place], [place] | | | | | [facility] | [address] | | | | | and Healing, | [phone] | | | | | | | | | | | Floor [place], [place] | | | | | | [address] | | | | | | [phone] | | | +--------+ + + + [...]
--- OUTSIDE RECORDS SUMMARY | ~2019-05-20 | XMS | Encounter Summary ---
Demographics + + + | Address | [address] | | | [place] [address] | + + + | Home Phone [...] Team Providers + +------+ + | Care Shampoo Assistant Name | Role | Phone | [...] Rd | | | | | | [place], [place] | | | | | | [address] | | | +--------+ + + + [...]
--- OUTSIDE RECORDS SUMMARY | ~2019-05-20 | XMS | Clinical Summary ---
Demographics + + + | Address | [address] | | | [place] [address] | + + + | Home Phone [...] | Author | [facility] | | | and Luis [...] Team Providers + +------+ + | Care Policy Adviser Name | Role | Phone | + [...] 0 | | | Activ | | [id number] | as needed (pain). | | | [...] +-------+--------+ +--------+-------+---------+------+ | BCBS | BCBS | [id number] | | | | PPO | | [...] meredith | | | 1 (Home) | [id number] | + +--------+ +--------+ + + Advance Directives Patient has advance care planning documents on file. For more information, please contact:[facility] [place] [address]"
--- OUTSIDE RECORDS SUMMARY | ~2019-05-20 | XMS | Encounter Summary ---
Demographics + + + | Address | [address] | | | [place] [address] | + + + | Home Phone [...] Providers + +------+ + | Care Wood Carving Machine Operator Name | Role | Phone | + +------+ + | Ashwini Ochoa CAREER DEVELOPMENT COUNSELOR | PCP | | + +------+ + [...] | | | W CONTRAST - | [facility] [place] | [address] | | | | | [place]ESS | [address] | Martina | | | | | STEREOTATIC | Phone: | Research | | | | | ONLY [place] MRI | [phone] | Center | | | | | BRAIN | Fax: | [place], [place] | | | | | CONTRAST | [phone] | [address] | | | | | | | Phone: | | | | | | | [phone] | | | | | | | Fax: | | | | | | | [phone] | +--------+--------+ + + + + Reason [...] Order | | 2014 | on | [facility] [address] | [address] | | | | | [address] Mailcode: CH8N | [place], [place] | | | | | [facility] | [address] | | | | | and Clarisse, | [phone] | | | | | [facility] | | | | | | Floor [place], [place] | | | | | | [address] | | | | | | [phone] | | | +--------+ + + + [...]
--- OUTSIDE RECORDS SUMMARY | ~2019-05-20 | XMS | Encounter Summary ---
Demographics + + + | Address | [address] | | | [place] [address] | + + + | Home Phone [...] Team Providers + +------+ + | Care Pug Mill Operator Helper Name | Role | Phone [...] Phone Call | | 2017 | | [facility] [address] | [address] | | | | | Ave Mailcode: CH8N | [place], [place] | | | | | [facility] | [address] | | | | | and Clarisse, | [phone] | | | | | [facility] [address] | | | | | | Floor [facility] [place] | | | | | | [address] | | | | | | [phone] | | | +--------+ + + + [...]
--- OUTSIDE RECORDS SUMMARY | ~2019-05-20 | XMS | Encounter Summary ---
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 | | | | [address] | | FS, ??? audelia), see | [...] at 9:30am. We are located at the [facility], 8th floo r. Address: [address] [place] [address]. Please call [phone] for questions o r concerns. 2. Follow up with your PCP to review your hospital course and medication changes. Please call to schedule this appointment. Future Appointments Date & Time Provider Department Dept Phone Center 11/09/2014 9:30 AM Bart Graham Neurosurgery at [facility] [phone] Neurosurgery Discharging Physician: JAIME HOWARD MD Attending [...] 14 | | | | bedtime. 2 unet=030 | | | | | | | [...] Intake/Output Summary (Last 24 hours) at 10/27/14 3245 Last data filed at 10/27/14 0800 Gross [...] issues Jaime Howard MD Neurosurgery Resident Pager #[phone] MEDICATIONS Current Facility-Administered Medications Medication acetaminophen (TYLENOL) [...] 7NSICU ATTENDING NEUROINTENSIVIST PROGRESS NOTE Team Pager: [phone] Attendin -------- EVENING NOTE -------- Date:10/25/2014 Critical [...] s/s of infection # Bipolar: Restart Wellbutrin, [place], Duloxetine, Ziprasidone, and lorazepam (prn) # Lines: CVL (subclavian), matos, PIV - d/c matos Relevant Risks: This patient is currently at risk for the following: cerebral edema, hydroc ephalus, intracerebral hemorrhage and seizure; central line associated blood stream infectio n, DVT/Pulmonary embolism, ICU delirium and UTI. I spent 30 minutes actively involved in the care and management of this patient. Sachin Ward MD [facility] DEPARTMENT: [id number] ICU NEURO Place of Service:- Inpatient Date of Service: 10/25/2014 CSN: [id number] Suggested Modifier: None Suggested CPT: TO QA REVIEWER RELEVANT DATA: Last Vitals: BP 112/66 | [...] charting, and discussion with treatment decision maker. [facility] DEPARTMENT: [id number] CRITICAL CARE Place of Service: Inpatient Date of Service: 10/25/2014 CSN: [id number] Suggested Level of Care: 46004 - CRITICAL CARE, 1ST HOUR EACH DAY [...] control. -Keep incision clean and dry. KAREEN YONUG MD Neurological Surgery, PGY-2 Torito Pike PA [...] MRI -dexamethasone 4mg q6--slow taper ordered. -medication ELECTRONIC WARFARE TECHNICAL: Geodon 160mg qHS, tramadol 50mg q6hr prn [...] oxycodone, dilaudid PRN Sedation: not indicated Thromb[facility]yl[facility]: [facility] Head of bed: 45 degrees Ulcer prophylaxis: [...] ab ove assessment and plan. VALENTINA CASTANON [facility] DEPARTMENT: [id number] ICU NEURO Place of Service:- Inpatient Date of Service: 10/25/2014 CSN: [id number] Suggested Modifier: None Suggested CPT: TO QA REVIEWER Kareen Martinez MD - 2014 6:49 PM [...] - 2014 6:19 PM PDT 7NSICU ATTENDING HOT PATCHER DAILY PROGRESS NOTE Team Pager: [phone] Attendin Date:2014 Critical Care Attending Physician: SACHIN [...] with the primary team and the consultants [facility] ed. (Relevant data is listed at the bottom of this note). CC / Hx / Last 24hr: s/p 1) Suboccipital craniectomy and C1 laminectomy 2) Resection of fo urth ventricular mass; Tium mesh cranioplasty Patient Active Problem List Diagnosis Neoplasm of brain PMH: Bipolar, anxiety, headaches , GERD, asthma Home meds: Ziprasidone, Tramadol, Topiramate, Lorazepam, [place], Lansoprazole, Dilaudid, Celecoxib, g abapentin, duloxetine, bupropion, [...] opioids: continue gabapentin # Bipolar: Restart Wellbutrin, [place], Duloxetine, Ziprasidone, and lorazepam (prn) # Lines: arterial line, CVL (subclavian), matos, PIV Relevant Risks: This patient is currently at risk for the following: cerebral edema, hy drocephalus, intracerebral hemorrhage and seizure; central line associated blood stream infe ction, DVT/Pulmonary embolism, ICU delirium and UTI. I spent 65 minutes actively involved in the care and management of this patient. Sachin Ward MD [facility] DEPARTMENT: [id number] ICU NEURO Place of Service:- Inpatient Date of Service: erEDICAL RECORD NUMBER [id number] CSN: [id number] Suggested Modifier: None Suggested CPT: TO QA REVIEWER RELEVANT DATA: Last Vitals: BP 139/80 | [...] MARQUAM | [address] | [place], [place] | | | LESLIE POINT OF CARE | [address] | [address] | | | TESTS | | | [...] + + + | MYRIAM CHENG | [address] | [place], [place] | | | MALINA NELSON OF [facility] | [address] | [address] | | | TESTS | | | [...] + + + + | [facility] | [address] | [place] [address] | | | SERVICES, CORE | PARK [...] + + + + + | [facility] | [address] | [place] [address] | | | GABRIELLE MIRELES | KAYLEN [...] MARQUAM | [address] | [place], [place] | | | MALINA NELSON OF CARE | [facility] | [address] | | | TESTS | | | [...] 60 - 99 mg/dL | [facility] - | | | GLUCOSE, | | | MARQUAM | | | POC | | | MLAINA NELSON | | | | | | [...] MARQUAM | [address] | [place], [place] | | | MALINA NELSON OF CARE | [address] | [address] | | | TESTS | | | [...] CHENG | [address] | [place], [place] | | | MALINA NELSON OF BEL | [facility] | [address] | | | TESTS | | | [...] + + + + + | [facility] | [address] [facility] | [place] [address] | | | SERVICES, CORE | KAYLEN [...] equation recommended by the | [facility] | | National Kidney Disease Education Program. [...] + + + + | [facility] | [address] | [place] [address] | | | CHI, GABRIELLE | KAYLEN [...] MARQUAM | [address] | [place], [place] | | | MALINA NELSON OF BEL | [facility] | [address] | | | TESTS | | | [...] CHENG | [address] | [place], [place] | | | MALINA NELSON OF CARE | [address] | [address] | | | TESTS | | | [...] MARLIZAM | [address] | [place] | | | LESLIE POINT OF CARE | [address] | [address] | | | TESTS | | | [...] + + | MYRIAM SALLY | [address] [facility] | [place], [place] | | | NEW VIENNA CAMAS OF [facility] | [address] | [address] | | | TESTS | | | | + + + + + OPERATION RECORD (10/26/2014 9:22 AM PDT) + + | Transcriptions | + + | Bart Graham MD - 2014 10:30 PM PDT Date of Service: 2014 Attending | | Surgeon: Bart Graham MD Deicer Finisher(s): Brady Conroy MD, | | PhD. Preoperative [...] placed, and she was placed in the [place] pumper head and flipped into | | the prone position on chest rolls. Her arms were tucked at her sides and all pressure | | points were carefully padded. We then registered the [employer] frameless stereotactic | | navigation system [...] curette with Kerrison punches. We used a [place] dissector to | | carefully dissect the [...] the subarachnoid space. We then used a Dewitt | | elevator and opened the dura [...] were removed. She was removed from the [place] pumper head | | and flipped into the [...] 2014 | | 18:04:22DT: 2014 22:30:30Job #: [id number] | + + CAPILLARY BLOOD GLUCOSE (NO [...] MARQUAM | [address] | [place], [place] | | | MALINA NELSON OF CARE | [address] | [address] | | | TESTS | | | [...] PROSPER | [address] | [place], [place] | | | NEW VIENNA POINT OF [facility] | [address] | [address] | | | TESTS | | | [...] [facility] | [address] | [place] [address] | | | SERVICES, CORE | PARK [...] + + + + | [facility] | [address] | [place] [address] | | | SERVICES, CORE | KAYLEN [...] 60 - 99 mg/dL | [facility] - | | | GLUCOSE, | | [...] CHENG | [address] | [place], [place] | | | MALINA NELSON OF BEL | [facility] | [address] | | | TESTS | | | [...] MARQUAM | [address] | [place], [place] | | | MALINA NELSON OF CARE | [address] | [address] | | | TESTS | | | [...] 60 - 99 mg/dL | [facility] - | | | GLUCOSE, | | [...] PROSPER | [address] | [place], [place] | | | PALUINA NELSON | [address] | [address] | | | TESTS | | | [...] CHENG | [address] | [place], [place] | | | MALINA NELSON OF BEL | [facility] | [address] | | | TESTS | | | [...] | + + + + + | [facility] | [address] | [place] [address] | | | SERVICES, SPECIAL | PARK [...] [facility] | [address] | [place] [address] | | | SERVICES, CORE | PARK [...] + + + + | [facility] [employer] | [address] [facility] | [place] [address] | | | SERVICES, CORE | KAYLEN [...] | | | | | | contrast. [id number] | | | | | | reformatted [...] | | | | | signed / DINROAH | | | | | | NILE [...] + +---------+ + + | [facility] DEPARTMENT OF | | | | | RADIOLOGY | | | | + +---------+ + + X-RAY PORTABLE CHEST 1 VIEW (2014 6:53 PM PDT) + + + + + + | Component | Value | Ref Range | Performed | Pathologist | | | | | At | Signature | + + + + + + | X-RAY | EXAM: SC CHEST 1 VIEW | | | | [...] + + + + | [facility] | [address] | [place] [address] | | | SERVICES, CORE | PARK [...] + + + + + | [facility] | [address] | [place] [address] | | | SERVICES, CORE | KAYLEN [...] [facility] | [address] | [place] [address] | | | SERVICES, CORE | PARK [...] + + + + + | [facility] | [address] | [place] [address] | | | SERVICES, CORE | PARK [...] + + + + | [facility] | [address] | [place] [address] | | | SERVICES, CORE | KAYLEN [...] CHENG | [address] | [place], [place] | | | MALINA NELSON OF CARE | [address] | [address] | | | TESTS | | | [...] MARQUAM | [address] | [place], [place] | | | MALINA NELSON OF CARE | [address] | [address] | | | TESTS | | | [...] PROSPER | [address] | [place], [place] | | | MALINA NELSON OF CARE | [facility] | [address] | | | TESTS | | | [...] CHENG | [address] | [place], [place] | | | MALINA NELSON OF [facility] | [facility] | [address] | | | TESTS | | | [...] PROSPER | [address] | [place], [place] | | | MALINA NELSON OF BEL | [address] | [address] | | | TESTS | | | [...] - SALLYAM | [address] | [place], [place] | | | MALINA NELSON OF CARE | [address] | [address] | | | TESTS | | | [...] CHENG | [address] | [place], [place] | | | LESLIE POINT OF CARE | [address] | [address] | | | TESTS | | | [...] MYRIAM CHENG | [address] | [place], [place] | | | LESLIE POINT OF [facility] | [address] | [address] | | | TESTS | | | [...] mass | | | | | | [id number] x 12 mm in | | | [...] + + + + + | [facility] | [address] | [place] [address] | | | SERVICES, | [address] [...] + + + + + | [facility] | [address] [facility] | [place] [address] | | | SERVICES, | KAYLEN MAHER | | | | TRANSFUSION MEDICINE | | | | + + + + + INTRAOPERATIVE NEURO MONITORING (2014) + + + | Narrative | Performed At | + + + | Patient Name: Mendoza Villegas Date of : 1970 Medical | | | Record Number: [id number] Date of Test: 2014 Place of | | | Service: IP Intra Op [id number] - [id number] INTRAOPERATIVE NEURO | | | MONITORING History: [...] of | | | Neurology Suggested CPT: 89564 - IOM Remote x 3 hr(s) 87785 - | | | Short Latency EP's Upper AND Lower extremities 70463 - Central Motor | | | EP's Upper AND Lower extremities 04914 - EMG Cranial Bilateral - IOM | | | 54998 - Neuromuscular Junction Test Suggested Diagnosis: 237.5 [...] | + + + + + | [facility] | [address] | [place] [address] | | | PATHOLOGY | [address] [...]
--- OUTSIDE RECORDS SUMMARY | ~2019-05-20 | XMS | Encounter Summary ---
Demographics + + + | Address | [address] | | | [place] [address] | + + + | Home Phone [...] Team Providers + +------+ + | Care Turnaround Planner Name | Role | Phone | + +------+ + | Ashwini Ochoa APPLICATIONS DEVELOPER | PCP | | + +------+ + [...] | | | | | VENOUS | [place], [place] | [address] | | | | | DUPLEX LOWER | [address] | Physician's | | | | | EXTREMITY | Phone: | Pavilion | | | | | BILAT COMP | [phone] | [place], [place] | | | | | | Fax: | [address] | | | | | | [phone] | Phone: | | | | | | | [phone] | | | | | | | Fax: | | | | | | | [phone] | +--------+--------+ + + + + Reason [...] | | Procedures | Bill Bell | [address] | | | | | VASC LAB | [address] | Rd Mailcode: | | | | | VENOUS | [place], [place] | [address] | | | | | DUPLEX LOWER | [address] | Physician's | | | | | EXTREMITY | Phone: | Pavilion | | | | | BILAT COMP | [phone] | [place], [place] | | | | | | Fax: | [address] | | | | | | [phone] | Phone: | | | | | | | [phone] | | | | | | | Fax: | | | | | | | [phone] | +--------+--------+ + + + + Encounter [...] | | | | | | Leandra [place], | | | | | | [place] [address] | | | | | | [phone] | | | +--------+ + + + [...] 14 | | | | bedtime. 2 [id number] | | | | | | | [...]
--- OUTSIDE RECORDS SUMMARY | ~2019-05-20 | XMS | Encounter Summary ---
Demographics + + + | Address | [address] | | | [place] [address] | + + + | Home Phone [...] Team Providers + +------+ + | Care Catering Truck Operator Name | Role | Phone | [...] MRI Results | | 2017 | | [facility] [address] | [address] [place] | | | | | [place] Mailcode: CH8N | [place], [place] | | | | | [facility] | [address] | | | | | and Healing, | [phone] | | | | | Building | | | | | | Floor [place], [place] | | | | | | [address] | | | | | | [phone] | | | +--------+ + + + [...]
--- OUTSIDE RECORDS SUMMARY | ~2019-05-20 | XMS | Clinical Summary ---
Demographics + + + | Address | [address] | | | [place] [address] | + + + | Home Phone | | + + + | Preferred Language | Unknown | + + + | Marital Status | | + + + | Uatsdin Affiliation | Unknown | + + + | Race | Unknown | + + + | Ethnic Group | Unknown | + + + Author + + + | Author | [facility] (Historical as of | | | 03-18-19) | + + + | Organization | [facility] (Historical as of | | | 03-18-19) [...] [place] | | | | | [address] | | + + + + + Care Team Providers + +------+ + | Care Ux Information Architect Name | Role | Phone | [...] | 0/20 | | e | | [address] UNITS capsule | | | | 14 [...] +------+-------+ + | PREMERA | PREMER | [id number] | | | [address] [address] | | | A BLUE | 1 | | | [place] | | | CARD | | | | [address] | +---------+--------+ +------+-------+ + + +--------+ +--------+ [...] | [address] | | | [address] | [address] | + +--------+ +--------+ + +"
--- OUTSIDE RECORDS SUMMARY | ~2019-05-20 | XMS | Encounter Summary ---
Demographics + + + | Address | [address] | | | [place] [address] | + + + | Home Phone [...] Team Providers + +------+ + | Care Children'S Literature Professor Name | Role | Phone | [...] | 2015 | anned | [address] [facility] | [phone] | | | | | [address] | | | | | | [place], [place] | | | | | | [address] | | | +--------+ + + + [...]
[~2019-05-20 22:31] MED LIST changes: +ACETAMINOPHEN325 M1 PO; +BACTRIM DS TAB1 EACH PO; +DICLOFENAC SODI25 MG PO; +DILAUDID1 MG/ML PO; +FLUTICASONE PRO16 GM NAS; +IBUPROFEN IV; +ONDANSETRON ODT8 MG PO; +POTASSIUM CHLO10 MEQ PO; +SUMATRIPTAN SUC50 MG PO; +TRAMADOL HCL50 MG; +VENTOLIN HFA18 GM INH; +ZIPSOR25 MG PO
--- OUTSIDE RECORDS SUMMARY | 2019-05-20 22:34 | XMS ---
PreManage Notification: MAGALIS BLACKMAN Security Director Of Culture Events No recent Security Events currently on file CRITERIA MET - [facility] - Has Care Guidelines - PDMP CARE PROVIDERS FAYE DELGADO Internal Medicine 10/18/2018-Current [facility] PHONE: [phone] Nathanael Jackson Treatment Current PHONE: Unknown Juan Diego has no Care Guidelines for this patient. Care History Medical/Surgical 10/18/2018 [facility] - Patient is currently established with [facility]. If patient is seen in the ED during business hours. Please contact [facility] at [facility]. Care Recommendation: This patient has had 5 or more Emergency Department visits in the last 12 months.\T\nbsp; Patient requires education on the scope and purpose of the ED as an acute care provider not a Primary Care Provider and should not be utilized for chronic conditions.\T\nbsp; These are guidelines and the provider should exercise clinical judgment when providing care. E.D. VISIT COUNT (12 MO.) 3 LUIS Marx TOTAL 3 NOTE: Visits indicate total known visits. ED/UCC VISIT TRACKING (12 MO.) 05/20/2019 22:32 [facility] [place] TYPE: Emergency COMPLAINT: - ABD PAIN 10/17/2018 10:13 [facility] [place] TYPE: Emergency COMPLAINT: - BILAT FLANK PAIN DIAGNOSES: - Essential (primary) hypertension - Acquired absence of both cervix and uterus - Allergy status to narcotic agent status - Latex allergy status - Bariatric surgery status - Acquired absence of other specified parts of digestive tract - Unspecified abdominal pain - Unspecified asthma, uncomplicated - Allergy status to analgesic agent status - Bipolar disorder, unspecified - Anxiety disorder, unspecified - Nicotine dependence, unspecified, uncomplicated - Oth allergy status, oth than to drugs and biolg substances - Sleep apnea, unspecified - Other intermediate designer (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 08/14/2018 22:[address] [facility] [place] TYPE: Emergency COMPLAINT: - POST OP PROBLEM/INFECTION DIAGNOSES: - Other intermediate designer (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 - Nicotine dependence, unspecified, uncomplicated - Essential (primary) hypertension - Acquired absence of both cervix and uterus - Allergy status to narcotic agent status - Bipolar disorder, unspecified - Anxiety disorder, unspecified - Latex allergy status - Allergy status to analgesic agent status - Sleep apnea, unspecified - Infection following a procedure, unspecified, init - Allergy status to oth drug/meds/biol subst status - Cellulitis of abdominal wall - Oth allergy status, oth than to drugs and biolg substances - Other urogenital candidiasis - Other specified noninflammatory disorders of vagina - INFECTION FOLLOWING A PROCEDURE, UNSPECIFIED, INIT - Unspecified asthma, uncomplicated INPATIENT VISIT TRACKING (12 MO.) No inpatient visits to display in this time frame [email or web address]
[2019-05-21] MEDS ORDERED: TRAMADOL HCL50 MG PO (02:36)
== END 2019-05-21 03:00 | disposition home or self-care (01) ==
LOC: ED 22:31
DX: S39.011A Strain of muscle, fascia and tendon of abdomen, initial encounter (principal); I10 Essential (primary) hypertension; F17.200 Nicotine dependence, unspecified, uncomplicated; Z91.048 Other nonmedicinal substance allergy status; Z91.040 Latex allergy status; Z88.8 Allergy status to other drugs, medicaments and biological substances; Z88.5 Allergy status to narcotic agent; Z88.6 Allergy status to analgesic agent; Z79.899 Other long term (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; X58.XXXA Exposure to other specified factors, initial encounter
CPT/HCPCS: 74177; 80053; 81001; 83690; 85025; 99284-25; J1170; J2405; Q9967

== ENCOUNTER 2019-05-24 20:31 | Emergency (ER) | payer BC ==
[~2019-05-24] VITALS: Ht 152.4 cm; Wt 97.5 kg
--- OUTSIDE RECORDS SUMMARY | ~2019-05-24 | XMS | Encounter Summary ---
Demographics + + + | Address | [address] | | | [place] [address] | + + + | Home Phone | | + + + | Preferred Language | Unknown | + + + | Marital Status | | + + + | Adventist Affiliation | LDS | + + + | Race | White | + + + | Ethnic Group | Not or | + + + Author + + + | Author | [facility] | + + + | Organization | [facility] | + + + | Address [...] Team Providers + +------+ + | Care Cyber Forensic Specialist Name | Role | Phone | + +------+ + | Ashwini Ochoa NP | PCP | | + +------+ + Reason for Visit + + + | Reason | Comments | + + + | Medication Refill | | + + + Encounter Details +--------+ + + + + | Date | Type | Department | Care Team | Description | +--------+ + + + + | 11/30/ | Telephone | Neurosurgery at | Bart Graham MD | Medication Refill | | 2014 | | [facility] [address] | [address] [place] | | | | | [address] Mail[address]: CH[address]N | [place], [place] | | | | | [facility] | [address] | | | | | and [place], | [phone] | | | | | [address] [address] | | | | | | [place], [place] | | | | | | [address] | | | | | | [phone] | | | +--------+ + + + [...] + | Diagnosis | + + | 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
--- OUTSIDE RECORDS SUMMARY | ~2019-05-24 | XMS | Encounter Summary ---
Demographics + + + | Address | [address] | | | [place] [address] | + + + | Home Phone | | + + + | Preferred Language | Unknown | + + + | Marital Status | | + + + | Orthodoxy Affiliation | LDS | + + + | Race | White | + + + | Ethnic Group | Not or | + + + Author + + + | Author | [facility] | + + + | Organization | [facility] | + + + | Address [...] Team Providers + +------+ + | Care Production Material Handler Name | Role | Phone | [...] Rd | | | | | | [place], [place] | | | | | | [address] | | | +--------+ + + + [...]
--- OUTSIDE RECORDS SUMMARY | ~2019-05-24 | XMS | Encounter Summary ---
Demographics + + + | Address | [address] | | | [place] [address] | + + + | Home Phone | | + + + | Preferred Language | Unknown | + + + | Marital Status | | + + + | Samaritan Affiliation | LDS | + + + | Race | White | + + + | Ethnic Group | Not or | + + + Author + + + | Author | [facility] | + + + | Organization | [facility] | + + + | Address | [...] Team Providers + +------+ + | Care Sheet Metal Assembler And Riveter Name | Role | Phone | + [...] Rd | | | | | | [place], [place] | | | | | | [address] | | | +--------+ + + + [...]
--- OUTSIDE RECORDS SUMMARY | ~2019-05-24 | XMS | Encounter Summary ---
Demographics + + + | Address | [address] | | | [place] [address] | + + + | Home Phone | | + + + | Preferred Language | Unknown | + + + | Marital Status | | + + + | Nondenominational Affiliation | LDS | + + + | Race | White | + + + | Ethnic Group | Not or | + + + Author + + + | Author | [facility] | + + + | Organization | [facility] | + + + | [...] Team Providers + +------+ + | Care Environmental Sciences Professor Name | Role | Phone | + [...] Rd | | | | | | [place], [place] | | | | | | [address] | | | +--------+ + + + [...]
--- OUTSIDE RECORDS SUMMARY | ~2019-05-24 | XMS | Encounter Summary ---
Demographics + + + | Address | [address] | | | [place] [address] | + + + | Home Phone | | + + + | Preferred Language | Unknown | + + + | Marital Status | | + + + | Sabianist Affiliation | LDS | + + + | Race | White | + + + | Ethnic Group | Not or | + + + Author + + + | Author | [facility] | + + + | Organization | [facility] | + + + | Address | [...] Team Providers + +------+ + | Care Water Analyst Name | Role | Phone | + +------+ + | Ashwini Ohcoa NP | PCP | | + +------+ [...] | | | | | VENOUS | [place], [place] | [address] | | | | | [address]UP[address]OWER | [address] | Physician's | | | | | EXTREMITY | Phone: | Pavilion | | | | | BILAT COMP | [phone] | [facility] [place] | | | | | | Fax: | [address] | | | | | | [phone] | Phone: | | | | | | | [phone] | | | | | | | Fax: | | | | | | | [phone] | +--------+--------+ + + + + Reason [...] | | | | | VENOUS | [place], [place] | [address] | | | | | DUPLEX LOWER | [address] | Physician's | | | | | EXTREMITY | Phone: | Pavilion | | | | | BILAT COMP | [phone] | [place], [place] | | | | | | Fax: | [address] | | | | | | [phone] | Phone: | | | | | | | [phone] | | | | | | | Fax: | | | | | | | [phone] | +--------+--------+ + + + + Encounter [...] | | | | | | Pavilion [place], | | | | | | [place] [address] | | | | | | [phone] | | | +--------+ + + + [...] 14 | | | | bedtime. 2 [id number] | | | | | | | [...] | | + +---------+ + + | [facility] DEPARTMENT OF | | | | | RADIOLOGY | | | | + +---------+ + + documented in this encounter Visit Diagnoses + + | Diagnosis | + + | Bilateral leg edema Edema | + + documented in this encounter"
--- OUTSIDE RECORDS SUMMARY | ~2019-05-24 | XMS | Encounter Summary ---
Demographics + + + | Address | [address] | | | [place] [address] | + + + | Home Phone | | + + + | Preferred Language | Unknown | + + + | Marital Status | | + + + | Sikhism Affiliation | LDS | + + + | Race | White | + + + | Ethnic Group | Not or | + + + Author + + + | Author | [facility] | + + + | Organization | [facility] | + + + | Address | [...] Team Providers + +------+ + | Care Anatomy Teacher Name | Role | Phone | + [...] Closed | | Radiology | Diagnoses | [place], | | | | | | Neoplasm of | MD Bart | | | | | | brain (HCC) | [address] | | | | | | Procedures | Avenue | | | | | | MRI BRAIN | [place], [place] | | | | | | TUMOR | [address] | | | | | | EVALUATION | Phone: | | | | | | WWO CONTRAST | [phone] | | | | | | | Fax: | | | | | | | [phone] | | +--------+--------+ + + + + Reason for Visit + + + | Reason | Comments | + + + | Radiology Order | | + + + Encounter Details +--------+ + + + + | Date | Type | Department | Care Team | Description | +--------+ + + + + | 01/20/ | Telephone | Neurosurgery at | Bart Graham MD | Radiology Order | | 2016 | | [facility] [address] | [address] | | | | | [address] Mailcode: CH8N | [place], [place] | | | | | [facility] | [address] | | | | | and Healing, | [phone] | | | | | [facility] | | | | | | Floor [place], [place] | | | | | | [address] | | | | | | [phone] | | | +--------+ + + + [...] of this encounter Plan of Treatment + +---------+--------+ + + | Name | Type | Priori | Associated Diagnoses | Order Schedule | | | | ty | | | + +---------+--------+ + + | MRI BRAIN TUMOR | Imaging | Routin | Neoplasm of brain | Expected: | | EVALUATION WWO | | e | (HCC) | 01/25/2017, Expires: | | CONTRAST | | | | 02/24/2018 | + +---------+--------+ + + documented as of this encounter Visit Diagnoses + + | Diagnosis | + + | 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
--- OUTSIDE RECORDS SUMMARY | ~2019-05-24 | XMS | Encounter Summary ---
Demographics + + + | Address | [address] | | | [place] [address] | + + + | Home Phone | | + + + | Preferred Language | Unknown | + + + | Marital Status | | + + + | Sikh Affiliation | LDS | + + + | Race | White | + + + | Ethnic Group | Not or | + + + Author + + + | Author | [facility] | + + + | Organization | [facility] | + + + | Address [...] Team Providers + +------+ + | Care Prosecuting Attorney Name | Role | Phone | + +------+ + | Ashwini Ochoa NP | PCP | | + +------+ + Reason for Visit +--------+ + | Reason | Comments | +--------+ + | Other | NSQIP data completion | +--------+ + Encounter Details +--------+ + + + + | Date | Type | Department | Care Team | Description | +--------+ + + + + | 01/11/ | Telephone | Quality Management | Bart Graham MD | Other (NSQIP data | | 2015 | IP | [address] | [address] | completion) | | | | [address] | [place], [place] | | | | | [place] | [address] | | | | | [address] | [phone] | | | | | | | [...]
--- OUTSIDE RECORDS SUMMARY | ~2019-05-24 | XMS | Encounter Summary ---
Demographics + + + | Address | [address] | | | [place] [address] | + + + | Home Phone [...] Team Providers + +------+ + | Care Patient Access Associate Name | Role | Phone | + +------+ + | Ashwini Ochoa NP | PCP | | + +------+ + Encounter Details +--------+ + + + + | Date | Type | Department | Care Team | Description | +--------+ + + + + | 10/18/ | Ambulance Mechanic | Neurosurgery at | Tali Jackson, | Neoplasm of brain | | 2014 | | [facility] [address] | PA-C [address] | (HCC) (Primary Dx) | | | | Ave Mailcode: CH8N | Ave [place], [place] | | | | | [facility] | [address] | | | | | and Healing, | [phone] | | | | | [facility] | | | | | | Floor [facility] [place] | | | | | | [address] | | | | | | [phone] | | | +--------+ + + + [...]
--- OUTSIDE RECORDS SUMMARY | ~2019-05-24 | XMS | Encounter Summary ---
Demographics + + + | Address | [address] | | | [place] [address] | + + + | Home Phone | | + + + | Preferred Language | Unknown | + + + | Marital Status | | + + + | Nondenominational Affiliation | LDS | + + + | Race | White | + + + | Ethnic Group | Not or | + + + Author + + + | Author | [facility] | + + + | Organization | [facility] | + + + | [...] Team Providers + +------+ + | Care Transit Proof Machine Operator Name | Role | Phone [...] | Bilateral | MD Cristopher | Genetics | | | | | leg edema | [address] | [address] | | | | | Procedures | [facility] | [facility] | | | | | CONSULT TO | Hospital | Rd Mailcode: | | | | | [facility] | Road | [facility] | | | | | GENETICS | [place], [place] | [place], [place] | | | | | | [address] | [address] | | | | | | Phone: | Phone: | | | | | | [phone] | [phone] | | | | | | Fax: | Fax: | | | | | | [phone] | [phone] | +--------+--------+ + + + + Diagnostic Testing (Routine) +--------+--------+ + + + + | Status | Reason | Specialty | Diagnoses / | Referred By | Referred To | | | | | Procedures | Contact | Contact | +--------+--------+ + + + + | Closed | | Radiology | Diagnoses | Mackenzie, | Xxrad Vasc | | | | | Bilateral | Nury Harrell, | [address] | | | | | leg edema | [place] [address] | | | | | Procedures | [address] | [address] | | | | | VASC LAB | [address] | Rd Mailcode: | | | | | VENOUS | [place], [place] | [address] | | | | | DUPLEX LOWER | [address] | Physician's | | | | | EXTREMITY | Phone: | Pavilion | | | | | BILAT COMP | [phone] | [place], [place] | | | | | | Fax: | [address] | | | | | | [phone] | Phone: | | | | | | | [phone] | | | | | | | Fax: | | | | | | | [phone] | +--------+--------+ + + + + Reason [...] edema | | 2015 | Visit | [facility] [address] | [address] | (Primary Dx) | | | | Ave Mailcode: CH8N | [place], [place] | | | | | [facility] | [address] | | | | | and Healing, | [phone] | | | | | [facility] | | | | | | Floor [place], [place] | | | | | | [address] | | | | | | [phone] | | | +--------+---------+ + + + [...] every six hours. Take 1 tablet by [facility] every 8 hours for 2 days. [...] 2) Contact our office or present to [facility] Emergency Department for severe headache not rel [...] | | + +---------+ + + | [facility] DEPARTMENT OF | | | | | RADIOLOGY | | | | + +---------+ + + documented in this encounter Visit Diagnoses + + | Diagnosis | + + | Bilateral leg edema - Primary Edema | + + documented in this encounter
--- OUTSIDE RECORDS SUMMARY | ~2019-05-24 | XMS | Encounter Summary ---
Demographics + + + | Address | [address] | | | [place] [address] | + + + | Home Phone | | + + + | Preferred Language | Unknown | + + + | Marital Status | | + + + | Voodoo Affiliation | LDS | + + + | Race | White | + + + | Ethnic Group | Not or | + + + Author + + + | Author | [facility] | + + + | Organization | [facility] | + + + | Address [...] Team Providers + +------+ + | Care Windshield Repair Technician Name | Role | Phone | + +------+ + | Aswhini Ochoa NP | PCP | | + +------+ + Encounter Details +--------+ + + + + | Date | Type | Department | Care Team | Description | +--------+ + + + + | 06/07/ | Document-Sc | Health Information | Unknown . | | | 2013 | anned | [address] | | | | | | [address] | | | | | | Mailcode: [id number] | | | | | | [facility] | | | | | | [place], [place] | | | | | | [address] | | | | | | [phone] | | | +--------+ + + + [...] + + + | RADIOLOGY | | 06/07/2014 | | Results for this | | | | 12:00 AM | | procedure are in the | | | | PST | | results section. | + +--------+ + + + documented in this encounter Results RADIOLOGY (06/07/2014 12:00 AM PST) + + + | Narrative | Performed At | + + + | | | + + + documented in this encounter Visit Diagnoses Not on filedocumented in this encounter"
--- OUTSIDE RECORDS SUMMARY | ~2019-05-24 | XMS | Encounter Summary ---
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 | | | | [phone] | | FS, ??? 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 [...] at 9:30am. We are located at the [facility], [address] [place] [address]. Address: [address] [place] [address]. Please call [phone] for questions o r concerns. 2. Follow up with your PCP to review your hospital course and medication changes. Please call to schedule this appointment. Future Appointments Date & Time Provider Department Dept Phone Center 11/09/2014 9:30 AM Bart Graham Neurosurgery at [facility] [phone] Neurosurgery Discharging Physician: JAIME HOWARD MD Attending [...] 14 | | | | bedtime. 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 I spent 30 minutes actively involved in the care and management of this patient. Sachin Ward MD [facility] DEPARTMENT: [id number] ICU NEURO Place of Service:- Inpatient Date of Service: 10/25/2014 CSN: [id number] Suggested Modifier: None Suggested CPT: TO TEACHER BALLET RELEVANT DATA: Last Vitals: BP 112/66 | [...] charting, and discussion with treatment decision maker. [facility] DEPARTMENT: [id number] CRITICAL CARE Place of Service: Inpatient Date of Service: 10/25/2014 CSN: [id number] Suggested Level of Care: 94505 - CRITICAL CARE, 1ST HOUR EACH DAY [...] MRI -dexamethasone 4mg q6--slow taper ordered. -medication LABORER FRYER FARM: Geodon 160mg qHS, tramadol 50mg q6hr prn [...] for NV - Diet: Regular diet - [facility] bowel protocol - MIVF: Normal saline w/ [...] ove assessment and plan. 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 Team Pager: [phone] Attendin Date:2014 Critical Care Attending Physician: SACHIN [...] asthma Home meds: Ziprasidone, Tramadol, Topiramate, Lorazepam, Cabot, Lansoprazole, Dilaudid, Celecoxib, g abapentin, duloxetine, bupropion, [...] opioids: continue gabapentin # Bipolar: Restart Wellbutrin, Cabot, Duloxetine, Ziprasidone, and lorazepam (prn) # Lines: arterial line, CVL (subclavian), matos, PIV Relevant Risks: This patient is currently at risk for the following: cerebral edema, hy drocephalus, intracerebral hemorrhage and seizure; central line associated blood stream infe ction, DVT/Pulmonary embolism, ICU delirium and UTI. I spent 65 minutes actively involved in the care and management of this patient. Sachin Ward MD [facility] DEPARTMENT: [id number] ICU NEURO Place of Service:- Inpatient Date of Service: erEDICAL RECORD NUMBER [id number] CSN: [id number] Suggested Modifier: None Suggested CPT: TO TEACHER BALLET RELEVANT DATA: Last Vitals: BP 139/80 | [...] CHENG | [address] | [place], [place] | | | MALINA NEL[facility] OF CARE | [address] | [address] | | | TESTS | | | [...] SALLYAM | [address] | [place], [place] | | | LESLIE POINT OF CARE | [address] | [address] | | | TESTS | | | [...] | + + + + + | [facility] | [address] | [place] [address] | | | SERVICES, CORE | KAYLEN [...] | | | LABORATORY | | | LAO | | | SERVICES, | | | [...] the MDRD equation recommended by the | [facility] | | National Kidney Disease Education [...] | + + + + + | [facility] | [address] | [place] [address] | | | GABRIELLE MIRELES | KAYLEN [...] (H) | 60 - 99 mg/dL | [facility] - | | | GLUCOSE, | [...] SHELLEYQUAM | [address] | [place], [place] | | | LESLIE POINT OF CARE | [address] | [address] | | | TESTS | | | [...] CHENG | [address] | [place], [place] | | | MALINA NEL[place] OF BEL | [facility] | [address] | | | TESTS | | | [...] - MARQUAM | [address] | [place], [place] | | | LESLIE POINT OF CARE | [facility] | [address] | | | TESTS | | | [...] | + + + + + | [facility] | [address] | [place] [address] | | | CHI, CORE | KAYLEN [...] | | | LABORATORY | | | LAO | | | SERVICES, | | | [...] | + + + + + | [facility] | [address] | [place] [address] | | | SERVICES, CORE | KAYLEN [...] (H) | 60 - 99 mg/dL | [facility] - | | | GLUCOSE, | [...] CHENG | [address] | [place], [place] | | | MALINA [place]EL[place] OF BEL | [address] | [address] | | | TESTS | | | [...] MARQUAM | [address] | [place], [place] | | | MALINA NEL[place] OF CARE | [address] | [address] | | | TESTS | | | [...] MARQUAM | [address] | [place], [place] | | | MALINA [facility]EL[facility] OF CARE | [address] | [address] | | | TESTS | | | [...] CHENG | [address] | [place], [place] | | | MALINA [place]EL[place] OF BEL | [address] | [address] | | | TESTS | | | | + + + + + OPERATION RECORD (10/26/2014 9:22 AM PDT) + + | Transcriptions | + + | Bart Graham MD - 2014 10:30 PM PDT Date of Service: 2014 Attending | | Surgeon: Bart Graham MD Rib Sawyer(s): Brady Conroy MD, | | PhD. Preoperative [...] she was placed in the Bhagat head of data and flipped into | | the prone position on chest rolls. Her arms were tucked at her sides and all pressure | | points were carefully padded. We then registered the [employer] frameless stereotactic | | navigation system with [...] curette with Kerrison punches. We used a Gypsum dissector to | | carefully dissect the [...] the subarachnoid space. We then used a Dent | | elevator and opened the dura [...] were removed. She was removed from the [place] head of data | | and flipped into the supine [...] 2014 | | 18:04:22DT: 2014 22:30:30Job #: [id number] | + + CAPILLARY BLOOD GLUCOSE (NO [...] MARQUAM | [address] | [place], [place] | | | MALINA NELSON OF CARE | [address] | [address] | | | TESTS | | | [...] CHENG | [address] | [place], [place] | | | MALINA NEL[facility] OF CARE | [address] | [address] | | | TESTS | | | [...] [facility] | [address] | [place] [address] | | | SERVICES, CORE | PARK [...] | | | LABORATORY | | | LAO | | | SERVICES, | | | [...] | + + + + + | [facility] | [address] [facility] | [place] [address] | | | SERVICES, GABRIELEL | [address] | | | + [...] MARQUAM | [address] | [place], [place] | | | MALINA NEL[place] OF BEL | [facility] | [address] | | | TESTS | | | [...] (H) | 60 - 99 mg/dL | [facility] - | | | GLUCOSE, | [...] MARQUAM | [address] | [place] | | | MALINA NELSON OF [facility] | [address] | [address] | | | TESTS | | | [...] CHENG | [address] | [place], [place] | | | MALINA NEL[facility] OF CARE | [facility] | [address] | | | TESTS | | | [...] - MARQUAM | [address] | [place], [place] | | | LESLIE POINT OF CARE | [address] | [address] | | | TESTS | | | [...] | + + + + + | [facility] | [address] | [place] [address] | | | SERVICES, SPECIAL | PARK [...] | + + + + + | [facility] | [address] | [place] [address] | | | SERVICES, CORE | KAYLEN [...] | | | LABORATORY | | | LAO | | | SERVICES, | | | [...] the MDRD equation recommended by the | [facility] | | National Kidney Disease Education Program. [...] | + + + + + | [facility] | [address] | [place] [address] | | | CHI, GABRIELLE | KAYLEN [...] | | | | | | contrast. [id number] | | | | | | reformatted [...] + + + | X-RAY | EXAM: MA CHEST 1 VIEW | | | | [...] [facility] | [address] | [place] [address] | | | SERVICES, CORE | PARK [...] | | | LABORATORY | | | LAO | | | SERVICES, | | | [...] | + + + + + | [facility] | [address] [facility] | [place] [address] | | | GABRIELLE MIRELES | KAYLEN [...] | + + + + + | [facility] | [address] | [place] [address] | | | SERVICES, CORE | KAYLEN [...] [facility] | [address] | [place] [address] | | | SERVICES, GABRIELLE | KAYLEN [...] | + + + + + | [facility] | [address] | [place] [address] | | | SERVICES, CORE | PARK [...] MARLIZAM | [address] | [place] | | | MALINA NEL[place] OF BEL | [address] | [address] | | | TESTS | | | [...] MARQUAM | [address] | [place] | | | LESLIE POINT OF CARE | [facility] | [address] | | | TESTS | | | [...] + + + | MYRIAM CHENG | [address] | [place] | | | MALINA NELSON OF [facility] | [address] | [address] | | | TESTS | | | [...] MARLIZAM | [address] | [place], [place] | | | MALINA NELSON OF BEL | [address] | [address] | | | TESTS | | | [...] MARLIZAM | [address] | [place], [place] | | | MALINA NELSON OF CARE | [facility] | [address] | | | TESTS | | | [...] CHENG | [address] | [place] | | | MALINA NELSON OF CARE | [address] | [address] | | | TESTS | | | [...] SALLYAM | [address] | [place], [place] | | | MALINA NELSON OF CARE | [address] | [address] | | | TESTS | | | [...] + + + | MYRIAM CHENG | [address] | [place] | | | MALINA NELSON OF [facility] | [address] | [address] | | | TESTS | | | [...] mass | | | | | | [id number] x 12 mm in | | | [...] | | + +---------+ + + | [facility] DEPARTMENT OF | | | | [...] [facility] | [address] | [place] [address] | | | SERVICES, | [address] [...] | + + + + + | [facility] | [address] | [place] [address] | | | SERVICES, | [address] | | | | TRANSFUSION MEDICINE | | | | + + + + + INTRAOPERATIVE NEURO MONITORING (2014) + + + | Narrative | Performed At | + + + | Patient Name: Mendoza Villegas Date of : 1970 Medical | | | Record Number: [id number] Date of Test: 2014 Place of | | | Service: IP Intra Op [phone] [id number] INTRAOPERATIVE NEURO | | | MONITORING History: [...] of | | | Neurology Suggested CPT: 00698 - IOM Remote x 3 hr(s) 68654 - | | | Short Latency EP's Upper AND Lower extremities 21213 - Central Motor | | | EP's Upper AND Lower extremities 27529 - EMG Cranial Bilateral - IOM | | | 30392 - Neuromuscular Junction Test Suggested Diagnosis: 237.5 [...] | + + + + + | [facility] | [address] | [place] [address] | | | PATHOLOGY | [address] [...]
--- OUTSIDE RECORDS SUMMARY | ~2019-05-24 | XMS | Clinical Summary ---
Demographics + + + | Address | [address] | | | [place] [address] | + + + | Home Phone | | + + + | Preferred Language | Unknown | + + + | Marital Status | | + + + | Gnosticism Affiliation | LDS | + + + [...] Team Providers + +------+ + | Care Grit Removal Operator Name | Role | Phone | + +------+ + | Marixa Weber MD | PCP | | + +------+ + Source Comments LIZZJUAN is fully live on both [facility] Allergies + + + + + + [...] | e | | | bedtime. 2 [id number] | | | 14 | | | [...] 12/29/ | DURS33 | | 3 - [id number]: Qty: | | Head | LIFESCIENCE | | 2017 | 91 / | | 1 on 2014 by Santos | | | S | | | /[id number] | | MD Bart at [facility] | | | | | | 70 | | REV LOC | | | | | | | + +------+-------+ +--------+--------+--------+ | Mesh Contour [id number] | | N/A: | [employer] [place] | | | 04.503 | | Malleable Matrix Neuro - | | Head | | | | .083 / | | [id number]: Qty: 1 on | | | | | | / | | 2014 by Bart Graham, | | | | | | | | MD at [facility] INPATIENT REV LOC | | | | | | | + +------+-------+ +--------+--------+--------+ | Screw 04mm Ti Self-Drill | | N/A: | [facility] | | | 04.503 | | Matrix Neuro - | | Head | | | | .104.0 | | [id number]: Qty: 6 on | | | | | | 1 / / | | 2014 by Bart Graham, | | | | | | | | MD at [facility] INPATIENT REV LOC | | | | [...] | x | 008-Pr | 8 | [address] | | | | STATE | | esent | | [place], | | | | | | | | [place] | | | | | | | | [address] | | + +--------+ +--------+ + +------+ [...] [place]redith | | | 1 (Home) | [address] | + +--------+ +--------+ + + Advance [...]
--- OUTSIDE RECORDS SUMMARY | ~2019-05-24 | XMS | Clinical Summary ---
Demographics + + + | Address | [address] | | | [place] [address] | + + + | Home Phone | | + + + | Preferred Language | Unknown | + + + | Marital Status | | + + + | Samaritan Affiliation | 1027 | + + + | Race | Unknown | + + + | Ethnic Group | Unknown | + + + Author + + + | Author | [facility] | | | and Luis Danielana | + + + | Organization | [facility] | | | [...] Team Providers + +------+ + | Care Ceo And Co Founder Name | Role | Phone | + [...] 0 | | | Activ | | [id number]-[id number] | as needed (pain). | | | [...] +-------+--------+ +--------+-------+---------+------+ | BCBS | BCBS | [id number] | | | | PPO | | [...] meredith | | | 1 (Home) | [address] | + +--------+ +--------+ + + Advance Directives Patient has advance care planning documents on file. For more information, please contact:[facility] / [place] [address]"
--- OUTSIDE RECORDS SUMMARY | ~2019-05-24 | XMS | Encounter Summary ---
Demographics + + + | Address | [address] | | | [place] [address] | + + + | Home Phone [...] + + + | Author | [facility] | + + + | Organization | [facility] | + + + [...] Team Providers + +------+ + | Care Booth Operator Name | Role | Phone | + +------+ + | Ashwini Ochoa NP | PCP | | + +------+ + Encounter Details +--------+ + + + + | Date | Type | Department | Care Team | Description | +--------+ + + + + | 01/29/ | Document-Sc | UNKNOWN DEPARTMENT | Unknown . | | | 2017 | anned | [address] | | | | | | [address] | | | | | | [place], [place] | | | | | | [address] | | | +--------+ + + + [...]
--- OUTSIDE RECORDS SUMMARY | ~2019-05-24 | XMS | Encounter Summary ---
Demographics + + + | Address | [address] | | | [place] [address] | + + + | Home Phone | | + + + | Preferred Language | Unknown | + + + | Marital Status | | + + + | Quaker Affiliation | LDS | + + + | Race | White | + + + | Ethnic Group | Not or | + + + Author + + + | Author | [facility] | + + + | Organization | [facility] | + + + | [...] Team Providers + +------+ + | Care Spider Assembler Name | Role | Phone | + [...] MRI Results | | 2017 | | [facility] [address] | [address] | | | | | Ave Mailcode: CH8N | [place], [place] | | | | | [facility] | [address] | | | | | and [place], | [phone] | | | | | [facility] | | | | | | [place], [place] | | | | | | [address] | | | | | | [phone] | | | +--------+ + + + [...]
--- OUTSIDE RECORDS SUMMARY | ~2019-05-24 | XMS | Clinical Summary ---
Demographics + + + | Address | [address] | | | [place] [address] | + + + | Home Phone | | + + + | Preferred Language | Unknown | + + + | Marital Status | | + + + | Jewish Affiliation | Unknown | + + + | Race | Unknown | + + + | Ethnic Group | Unknown | + + + Author + + + | Author | [facility] (Historical as of | | | 03-18-19) | + + + | Organization | [facility] (Historical as of | | | 03-18-19) [...] [place] | | | | | [address] | | + + + + + Care Team Providers + +------+ + | Care Baffle Mounter Name | Role | Phone | + [...] | 0/20 | | e | | [address] UNITS capsule | | | | 14 [...] +------+-------+ + | PREMERA | PREMER | [id number] | | | [address] [address] | | | A BLUE | 1 | | | [place] | | | CARD | | | | [address] | +---------+--------+ +------+-------+ + + +--------+ +--------+ [...] | [address]redith | | | [address] | [address] | + +--------+ +--------+ + +"
--- OUTSIDE RECORDS SUMMARY | ~2019-05-24 | XMS | Encounter Summary ---
Demographics + + + | Address | [address] | | | [place] [address] | + + + | Home Phone | | + + + | Preferred Language | Unknown | + + + | Marital Status | | + + + | Temple Affiliation | LDS | + + + | Race | White | + + + | Ethnic Group | Not or | + + + Author + + + | Author | [facility] | + + + | Organization | [facility] | + + + | [...] Team Providers + +------+ + | Care Lime Kiln And Recausticizing Operator Name | Role | Phone | + +------+ + | Marixa Weber MD | PCP | | + +------+ + Encounter Details +--------+ + + + + | Date | Type | Department | Care Team | Description | +--------+ + + + + | 08/28/ | Document-Sc | UNKNOWN DEPARTMENT | Other, Faculty | | | 2014 | anned | [address] [facility] | [phone] | | | | | [address] | | | | | | [place], [place] | | | | | | [address] | | | +--------+ + + + [...]
--- OUTSIDE RECORDS SUMMARY | ~2019-05-24 | XMS | Encounter Summary ---
Demographics + + + | Address | [address] | | | [place] [address] | + + + | Home Phone | | + + + | Preferred Language | Unknown | + + + | Marital Status | | + + + | Gnosticist Affiliation | LDS | + + + [...] Team Providers + +------+ + | Care Art Objects Salesperson Name | Role | Phone | + [...] Medication Refill | | 2014 | | [facility] [address] | [address] | | | | | [address] Mailcode: CH[address]N | [place], [place] | | | | | [facility] | [address] | | | | | and [address], | [phone] | | | | | [place] [address] | | | | | | [place], [place] | | | | | | [address] | | | | | | [phone] | | | +--------+ + + + [...]
--- OUTSIDE RECORDS SUMMARY | ~2019-05-24 | XMS | Encounter Summary ---
Demographics + + + | Address | [address] | | | [place] [address] | + + + | Home Phone [...] Team Providers + +------+ + | Care Bundle Sorter Name | Role | Phone | + [...] data | | 2015 | IP | [address] | [address] | completion) | | | | [address] | [place], [place] | | | | | [place], [place] | [address] | | | | | [address] | [phone] | | | | | | | [...]
--- OUTSIDE RECORDS SUMMARY | ~2019-05-24 | XMS | Encounter Summary ---
Demographics + + + | Address | [address] | | | [place] [address] | + + + | Home Phone [...] + + + | Author | [facility] | + + + | Organization | [facility] | + + + | [...] Team Providers + +------+ + | Care Quill Layer Name | Role | Phone | + [...] + + | 10/24/ | Hospital | [facility] [address] | Bart Graham MD | | | 2014 - | Encounter | [facility] | [address] | | | | | [id number] | [place], [place] | | | 10/28/ | | [place], | [address] | | | 2014 | | [place] [address] | [phone] | | | | | [phone] | | | +--------+ + + + [...] 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 We are located at the [facility], [address] [place] [address]. Address: [address] [place] [address]. Please call [phone] for questions o r concerns. 2. Follow up with your PCP to review your hospital course and medication changes. Please call to schedule this appointment. Future Appointments Date & Time Provider Department Dept Phone Center 11/09/2014 9:30 AM Bart Graham Neurosurgery at [facility] [phone] Neurosurgery Discharging Physician: JAIME HOWARD MD Attending [...] 14 | | | | bedtime. 2 [id number] | | | | | | | [...] issues Jaime Howard MD Neurosurgery Resident Pager #[phone] MEDICATIONS Current Facility-Administered Medications Medication acetaminophen (TYLENOL) [...] 7NSICU ATTENDING NEUROINTENSIVIST PROGRESS NOTE Team Pager: [phone] Attendin -------- EVENING NOTE -------- Date:10/25/2014 Critical [...] s/s of infection # Bipolar: Restart Wellbutrin, Vista, Duloxetine, Ziprasidone, and lorazepam (prn) # Lines: CVL (subclavian), matos, PIV - d/c matso Relevant Risks: This patient is currently at risk for the following: cerebral edema, hydroc ephalus, intracerebral hemorrhage and seizure; central line associated blood stream infectio n, DVT/Pulmonary embolism, ICU delirium and UTI. I spent 30 minutes actively involved in the care and management of this patient. Sachin Ward MD [facility] DEPARTMENT: [id number] ICU NEURO Place of Service:- Inpatient Date of Service: 10/25/2014 CSN: [id number] Suggested Modifier: None Suggested CPT: TO ARCHEOLOGIST CLASSICAL RELEVANT DATA: Last Vitals: BP 112/66 | [...] charting, and discussion with treatment decision maker. [facility] DEPARTMENT: [id number] CRITICAL CARE Place of Service: Inpatient Date of Service: 10/25/2014 CSN: [id number] Suggested Level of Care: 01798 - CRITICAL CARE, 1ST HOUR EACH DAY [...] MRI -dexamethasone 4mg q6--slow taper ordered. -medication GREASE MAN: Geodon 160mg qHS, tramadol 50mg q6hr prn [...] for [place] - Diet: Regular diet - [facility] bowel protocol - MIVF: Normal saline [...] ove assessment and plan. TORITO GONG, VALENTINA [facility] DEPARTMENT: [id number] ICU NEURO Place of Service:- Inpatient Date of Service: 10/25/2014 CSN: [id number] Suggested Modifier: None Suggested CPT: TO ARCHEOLOGIST CLASSICAL Kareen Martinez MD - 2014 6:49 PM [...] - 2014 6:19 PM PDT 7NSICU ATTENDING CLAM PICKER DAILY PROGRESS NOTE Team Pager: [phone] Attendin Date:2014 Critical Care Attending Physician: SACHIN [...] with the primary team and the consultants [facility] ed. (Relevant data is listed at the bottom of this note). CC / Hx / Last 24hr: s/p 1) Suboccipital craniectomy and C1 laminectomy 2) Resection of fo urth ventricular mass; Tium mesh cranioplasty Patient Active Problem List Diagnosis Neoplasm of brain PMH: Bipolar, anxiety, headaches , GERD, asthma Home meds: Ziprasidone, Tramadol, Topiramate, Lorazepam, Vista, Lansoprazole, Dilaudid, Celecoxib, g abapentin, duloxetine, bupropion, [...] opioids: continue gabapentin # Bipolar: Restart Wellbutrin, Vista, Duloxetine, Ziprasidone, and lorazepam (prn) # Lines: arterial line, CVL (subclavian), matos, PIV Relevant Risks: This patient is currently at risk for the following: cerebral edema, hy drocephalus, intracerebral hemorrhage and seizure; central line associated blood stream infe ction, DVT/Pulmonary embolism, ICU delirium and UTI. I spent 65 minutes actively involved in the care and management of this patient. Sachin Ward MD [facility] DEPARTMENT: [id number] ICU NEURO Place of Service:- Inpatient Date of Service: erEDICAL RECORD NUMBER [id number] CSN: [id number] Suggested Modifier: None Suggested CPT: TO ARCHEOLOGIST CLASSICAL RELEVANT DATA: Last Vitals: BP 139/80 | [...] (H) | 60 - 99 mg/dL | [facility] - | | | [...] PROSPER | [address] | [place], [place] | | | LESLIE POINT OF CARE | [address] | [address] | | | TESTS | | | [...] PROSPER | [address] | [place], [place] | | | MALINA NELSON OF BEL | [address] | [address] | | | TESTS | | | [...] | + + + + + | [facility] | [address] | [place] [address] | | | SERVICES, CORE | PARK [...] | | | LABORATORY | | | ALGERIAN | | | SERVICES, | | | [...] the MDRD equation recommended by the | [facility] | | National Kidney [...] | + + + + + | [facility] | [address] | [place] [address] | | | CHI, GABRIELLE | KAYLEN [...] SALLYAM | [address] | [place], [place] | | | LESLIE POINT OF CARE | [address] | [address] | | | TESTS | | | [...] CHENG | [address] | [place], [place] | | | MALINA NELSON OF BEL | [address] | [address] | | | TESTS | | | [...] MARQUAM | [address] | [place], [place] | | | LESLIE POINT OF CARE | [address] | [address] | | | TESTS | | | [...] | + + + + + | [facility] | [address] | [place] [address] | | | SERVICES, CORE | KAYLEN [...] | | | LABORATORY | | | ALGERIAN | | | SERVICES, | | | [...] the MDRD equation recommended by the | [facility] | | National Kidney [...] | + + + + + | [facility] | [address] | [place] [address] | | | SERVICES, GABRIELLE | KAYLEN [...] (H) | 60 - 99 mg/dL | [facility] - | | | [...] CHENG | [address] | [place], [place] | | | LESLIE POINT OF CARE | [address] | [address] | | | TESTS | | | [...] PROSPER | [address] | [place], [place] | | | MALINA NELSON OF CARE | [address] | [address] | | | TESTS | | | [...] OHJUAN - PROSPER | [address] | [place], [place] | | | MALINA NELSON OF CARE | [facility] | [address] | | | TESTS | | | [...] (H) | 60 - 99 mg/dL | [facility] - | | | [...] CHENG | [address] | [place], [place] | | | LESLIE POINT OF CARE | [address] | [address] | | | TESTS | | | | + + + + + OPERATION RECORD (10/26/2014 9:22 AM PDT) + + | Transcriptions | + + | Bart Graham MD - 2014 10:30 PM PDT Date of Service: 2014 Attending | | Surgeon: Bart Graham MD Talent Acquisition Relationship Manager(s): Brady Conroy MD, | | PhD. Preoperative [...] was placed in the Bhagat head of quality and flipped into | | the prone position on chest rolls. Her arms were tucked at her sides and all pressure | | points were carefully padded. We then registered the Estrogen Gene Test frameless stereotactic | | navigation system with [...] curette with Kerrison punches. We used a Bitely dissector to | | carefully dissect the [...] the subarachnoid space. We then used a [place] | | elevator and opened the dura [...] were removed. She was removed from the Blum head of quality | | and flipped into the supine [...] 2014 | | 18:04:22DT: 2014 22:30:30Job #: [id number] | + + CAPILLARY BLOOD GLUCOSE (NO [...] SALLYAM | [address] | [place], [place] | | | MALINA NELSON OF BEL | [facility] | [address] | | | TESTS | | | [...] (H) | 60 - 99 mg/dL | [facility] - | | | [...] CHENG | [address] | [place], [place] | | | LESLIE POINT OF CARE | [address] | [address] | | | TESTS | | | [...] [facility] | [address] | [place] [address] | | | SERVICES, CORE | PARK [...] | | | LABORATORY | | | ALGERIAN | | | SERVICES, | | | [...] | + + + + + | [facility] | [address] | [place] [address] | | | SERVICES, CORE | KAYLEN [...] MARQUAM | [address] | [place], [place] | | | LESLIE POINT OF CARE | [address] | [address] | | | TESTS | | | [...] - MARQUAM | [address] | [place], [place] | | | LESLIE POINT OF CARE | [address] | [address] | | | TESTS | | | [...] + + + | MYRIAM CHENG | [address] | [place], [place] | | | MALINA NELSON OF BEL | [address] | [address] | | | TESTS | | | [...] MARQUAM | [address] | [place], [place] | | | L[facility]LIE POINT OF CARE | [address] | [address] | | | TESTS | | | [...] | + + + + + | [facility] | [address] | [place] [address] | | | SERVICES, SPECIAL | KAYLEN [...] | + + + + + | [facility] | [address] | [place] [address] | | | SERVICES, CORE | KAYLEN [...] | | | LABORATORY | | | ALGERIAN | | | SERVICES, | | | [...] the MDRD equation recommended by the | [facility] | | National Kidney [...] | + + + + + | [facility] | [address] | [place] [address] | | | SERVICES, CORE | PARK [...] | | | | | | contrast. [id number] | | | | | | reformatted [...] | | + +---------+ + + | [facility] DEPARTMENT OF | | [...] + + + | X-RAY | EXAM: MT CHEST 1 VIEW | | | | [...] [facility] | [address] | [place] [address] | | | SERVICES, CORE | PARK [...] | | | LABORATORY | | | ALGERIAN | | | SERVICES, | | | [...] | + + + + + | [facility] | [address] [facility] | [place] [address] | | | GABRIELLE MIRELES | KAYLEN [...] | + + + + + | [facility] | [address] | [place] [address] | | | SERVICES, CORE | KAYLEN [...] | + + + + + | [facility] | [address] | [place] [address] | | | SERVICESGABRIELLE | [address] [...] | + + + + + | [facility] | [address] | [place] [address] | | | SERVICES, CORE | PARK [...] PROSPER | [address] | [place], [place] | | | MALINA NELSON OF BEL | [address] | [address] | | | TESTS | | | [...] PROSPER | [address] | [place], [place] | | | MALINA NELSON OF BEL | [facility] | [address] | | | TESTS | | | [...] PROSPER | [address] | [place], [place] | | | MALINA NELSON OF [facility] | [address] | [address] | | | TESTS | | | [...] CHENG | [address] | [place], [place] | | | MALINA NELSON OF BEL | [facility] | [address] | | | TESTS | | | [...] MARDEBRA | [address] | [place], [place] | | | MALINA NELSON OF CARE | [facility] | [address] | | | TESTS | | | [...] MARQUAM | [address] | [place], [place] | | | MALINA NELSON OF [facility] | [address] | [address] | | | TESTS | | | [...] PROSPER | [address] | [place], [place] | | | MALINA NELSON OF [facility] | [address] | [address] | | | TESTS | | | [...] + + + | MYRIAM CHENG | [address] | [place], [place] | | | MALINA NELSON OF [facility] | [address] | [address] | | | TESTS | | | [...] mass | | | | | | [id number] x 12 mm in | | | [...] [facility] | [address] | [place] [address] | | | SERVICES, | [address] [...] | + + + + + | [facility] | [address] [facility] | [place] [address] | | | SERVICES, | [address] | | | | TRANSFUSION MEDICINE | | | | + + + + + INTRAOPERATIVE NEURO MONITORING (2014) + + + | Narrative | Performed At | + + + | Patient Name: Mendoza Villegas Date of : 1970 Medical | | | Record Number: [id number] Date of Test: 2014 Place of | | | Service: IP Intra Op [id number] [id number] INTRAOPERATIVE NEURO | | | MONITORING History: [...] of | | | Neurology Suggested CPT: 92555 - IOM Remote x 3 hr(s) 37985 - | | | Short Latency EP's Upper AND Lower extremities 64429 - Central Motor | | | EP's Upper AND Lower extremities 62348 - EMG Cranial Bilateral - IOM | | | 06646 - Neuromuscular Junction Test Suggested Diagnosis: 237.5 [...] | + + + + + | [facility] | [address] | [place] [address] | | | PATHOLOGY | [address] [...] | | | | | NEEDED, Starting [facility] 10/25/14 at | | | | | | | 1344, Until [place] 10/28/14 at 1929, | | | | [...] | | | | | NEEDED, Starting [facility] 10/25/14 | | PM PDT | | [...]
--- OUTSIDE RECORDS SUMMARY | ~2019-05-24 | XMS | Encounter Summary ---
Demographics + + + | Address | [address] | | | [place] [address] | + + + | Home Phone [...] Team Providers + +------+ + | Care Maternity Floor Supervisor Name | Role | Phone | [...] [address] | | | | | | [place], [place] | | | | | | [address] | | | +--------+ + + + [...] 11:11 AM PDT | + + | aRj, Faculty - 10/22/2014 11:11 AM PDT | + + | Raj Faculty - 10/22/2014 11:11 AM PDT | + + documented in this encounter Visit Diagnoses Not on filedocumented in this encounter"
--- OUTSIDE RECORDS SUMMARY | ~2019-05-24 | XMS | Encounter Summary ---
Demographics + + + | Address | [address] | | | [place] [address] | + + + | Home Phone [...] + + + | Author | [facility] | + + + | Organization | [facility] | + + + | [...] Team Providers + +------+ + | Care Electric Power Machine Operator Name | Role | Phone [...] + + | 10/24/ | Hospital | [facility] [address] | Bart Graham MD | | | 2014 - | Encounter | [facility] | 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 [...] at 9:30am. We are located at the [facility], [address] [place] [address]. Address: [address] [place] [address]. Please call [phone] for questions o r concerns. 2. Follow up with your PCP to review your hospital course and medication changes. Please call to schedule this appointment. Future Appointments Date & Time Provider Department Dept Phone Center 11/09/2014 9:30 AM Bart Graham Neurosurgery at [facility] [phone] Neurosurgery Discharging Physician: JAIME HOWARD MD Attending [...] 14 | | | | bedtime. 2 wxct=[id number] | | | | | | | [...] issues Jaime Howard MD Neurosurgery Resident Pager #[phone] MEDICATIONS Current Facility-Administered Medications Medication acetaminophen (TYLENOL) [...] 7NSICU ATTENDING NEUROINTENSIVIST PROGRESS NOTE Team Pager: [phone] Attendin -------- EVENING NOTE -------- Date:10/25/2014 Critical [...] s/s of infection # Bipolar: Restart Wellbutrin, Bedminster, Duloxetine, Ziprasidone, and lorazepam (prn) # Lines: CVL (subclavian), matos, PIV - d/c matos Relevant Risks: This patient is currently at risk for the following: cerebral edema, hydroc ephalus, intracerebral hemorrhage and seizure; central line associated blood stream infectio n, DVT/Pulmonary embolism, ICU delirium and UTI. I spent 30 minutes actively involved in the care and management of this patient. Sachin Ward MD [facility] DEPARTMENT: [id number] ICU NEURO Place of Service:- Inpatient Date of Service: 10/25/2014 CSN: [id number] Suggested Modifier: None Suggested CPT: TO BUSINESS ADMINISTRATION PROFESSOR RELEVANT DATA: Last Vitals: BP 112/66 | [...] charting, and discussion with treatment decision maker. [facility] DEPARTMENT: [id number] CRITICAL CARE Place of Service: Inpatient Date of Service: 10/25/2014 CSN: [id number] Suggested Level of Care: 88204 - CRITICAL CARE, 1ST HOUR EACH DAY [...] MRI -dexamethasone 4mg q6--slow taper ordered. -medication CONSUMER MARKETING MANAGER: Geodon 160mg qHS, tramadol 50mg q6hr prn [...] for [place] - Diet: Regular diet - [facility] bowel protocol - MIVF: Normal saline [...] ove assessment and plan. TORITO GONG, VALENTINA [facility] DEPARTMENT: [id number] ICU NEURO Place of Service:- Inpatient Date of Service: 10/25/2014 CSN: [id number] Suggested Modifier: None Suggested CPT: TO BUSINESS ADMINISTRATION PROFESSOR Kareen Martinez MD - 2014 6:49 PM [...] - 2014 6:19 PM PDT 7NSICU ATTENDING FOOD EQUIPMENT SERVICE TECHNICIAN DAILY PROGRESS NOTE Team Pager: [phone] Attendin Date:2014 Critical Care Attending Physician: SACHIN [...] with the primary team and the consultants [facility]. (Relevant data is listed at the bottom of this note). CC / Hx / Last 24hr: s/p 1) Suboccipital craniectomy and C1 laminectomy 2) Resection of fo urth ventricular mass; Tium mesh cranioplasty Patient Active Problem List Diagnosis Neoplasm of brain PMH: Bipolar, anxiety, headaches , GERD, asthma Home meds: Ziprasidone, Tramadol, Topiramate, Lorazepam, Bedminster, Lansoprazole, Dilaudid, Celecoxib, g abapentin, duloxetine, bupropion, [...] opioids: continue gabapentin # Bipolar: Restart Wellbutrin, Bedminster, Duloxetine, Ziprasidone, and lorazepam (prn) # Lines: arterial line, CVL (subclavian), matos, PIV Relevant Risks: This patient is currently at risk for the following: cerebral edema, hy drocephalus, intracerebral hemorrhage and seizure; central line associated blood stream infe ction, DVT/Pulmonary embolism, ICU delirium and UTI. I spent 65 minutes actively involved in the care and management of this patient. Sachin Ward MD [facility] DEPARTMENT: [id number] ICU NEURO Place of Service:- Inpatient Date of Service: erEDICAL RECORD NUMBER [id number] CSN: [id number] Suggested Modifier: None Suggested CPT: TO BUSINESS ADMINISTRATION PROFESSOR RELEVANT DATA: Last Vitals: BP 139/80 | [...] | 60 - 99 mg/dL | [facility] - | | | GLUCOSE, | [...] PROSPER | [address] | [place], [place] | | | LESLIE POINT OF CARE | [address] | [address] | | | TESTS | | | [...] PROSPER | [address] | [place], [place] | | | MALINA NELSON OF BEL | [address] | [address] | | | TESTS | | | [...] | + + + + + | [facility] | [address] | [place] [address] | | | SERVICES, CORE | PARK [...] | | | LABORATORY | | | GERMAN | | | SERVICES, | | | [...] MDRD equation recommended by the | [facility] | | National Kidney Disease Education [...] + + + + + | [facility] | [address] | [place] [address] | | | CHI, GABRIELLE | KAYLEN [...] SALLYAM | [address] | [place], [place] | | | LSELIE POINT OF CARE | [address] | [address] | | | TESTS | | | [...] CHENG | [address] | [place], [place] | | | MALINA NELSON OF BEL | [address] | [address] | | | TESTS | | | [...] MARQUAM | [address] | [place], [place] | | | LESLIE POINT OF CARE | [address] | [address] | | | TESTS | | | [...] | + + + + + | [facility] | [address] | [place] [address] | | | SERVICES, CORE | KAYLEN [...] | | | LABORATORY | | | GERMAN | | | SERVICES, | | | [...] MDRD equation recommended by the | [facility] | | National Kidney Disease Education [...] | + + + + + | [facility] | [address] | [place] [address] | | | SERVICES, GABRIELLE | KAYLEN [...] | 60 - 99 mg/dL | [facility] - | | | GLUCOSE, | [...] CHENG | [address] | [place], [place] | | | LESLIE POINT OF CARE | [address] | [address] | | | TESTS | | | [...] PROSPER | [address] | [place], [place] | | | MALINA NELSON OF CARE | [address] | [address] | | | TESTS | | | [...] PROSPER | [address] | [place], [place] | | | MALINA NELSON OF CARE | [facility] | [address] | | | TESTS | | | [...] | 60 - 99 mg/dL | [facility] - | | | GLUCOSE, | [...] CHENG | [address] | [place], [place] | | | LESLIE POINT OF CARE | [address] | [address] | | | TESTS | | | | + + + + + OPERATION RECORD (10/26/2014 9:22 AM PDT) + + | Transcriptions | + + | Bart Graham MD - 2014 10:30 PM PDT Date of Service: 2014 Attending | | Surgeon: Bart Graham MD Dumper Operator(s): Brady Conroy MD, | | PhD. [...] and she was placed in the Bhagat wellhead pumper and flipped into | | the prone position on chest rolls. Her arms were tucked at her sides and all pressure | | points were carefully padded. We then registered the [employer] frameless stereotactic | | navigation system with [...] curette with Kerrison punches. We used a Squire dissector to | | carefully dissect the [...] the subarachnoid space. We then used a [place] | | elevator and opened the dura [...] were removed. She was removed from the Elcho wellhead pumper | | and flipped into the supine [...] 2014 | | 18:04:22DT: 2014 22:30:30Job #: [id number] | + + CAPILLARY BLOOD GLUCOSE (NO [...] SALLYAM | [address] | [place], [place] | | | MALINA NELSON OF BEL | [facility] | [address] | | | TESTS | | | [...] | 60 - 99 mg/dL | [facility] - | | | GLUCOSE, | [...] CHENG | [address] | [place], [place] | | | LESLIE POINT OF CARE | [address] | [address] | | | TESTS | | | [...] [facility] | [address] | [place] [address] | | | SERVICES, CORE | PARK [...] | | | LABORATORY | | | GERMAN | | | SERVICES, | | | [...] | + + + + + | [facility] | [address] | [place] [address] | | | SERVICES, CORE | KAYLEN [...] MARQUAM | [address] | [place], [place] | | | LESLIE POINT OF CARE | [address] | [address] | | | TESTS | | | [...] - MARQUAM | [address] | [place], [place] | | | LESLIE POINT OF CARE | [address] | [address] | | | TESTS | | | [...] + + + | MY[facility] CHENG | [address] | [place], [place] | | | MALINA NELSON OF BEL | [address] | [address] | | | TESTS | | | [...] MARQUAM | [address] | [place], [place] | | | LESLIE POINT OF CARE | [address] | [address] | | | TESTS | | | [...] | + + + + + | [facility] | [address] | [place] [address] | | | SERVICES, SPECIAL | KAYLEN [...] | + + + + + | [facility] | [address] | [place] [address] | | | SERVICES, CORE | KAYLEN [...] | | | LABORATORY | | | GERMAN | | | SERVICES, | | | [...] MDRD equation recommended by the | [facility] | | National Kidney Disease Education [...] + + + + + | [facility] | [address] | [place] [address] | | | SERVICES, CORE | PARK [...] | | | | | | contrast. [id number] | | | | | | reformatted [...] | + +---------+ + + | [facility] DEPARTMENT OF | | | | | RADIOLOGY | | | | + +---------+ + + X-RAY PORTABLE CHEST 1 VIEW (2014 6:53 PM PDT) + + + + + + | Component | Value | Ref Range | Performed | Pathologist | | | | | At | Signature | + + + + + + | X-RAY | EXAM: OH CHEST 1 VIEW | | | | [...] [facility] | [address] | [place] [address] | | | SERVICES, CORE | PARK [...] | | | LABORATORY | | | GERMAN | | | SERVICES, | | | [...] | + + + + + | [facility] | [address] [facility] | [place] [address] | | | GABRIELLE MIRELES | KAYLEN [...] | + + + + + | [facility] | [address] | [place] [address] | | | SERVICES, CORE | KAYLEN [...] + + + + + | [facility] | [address] | [place] [address] | | | SERVICESGABRIELLE | [address] [...] | + + + + + | [facility] | [address] | [place] [address] | | | SERVICES, CORE | PARK [...] PROSPER | [address] | [place], [place] | | | MALINA N[facility] | [address] | [address] | | | TESTS | | | [...] PROSPER | [address] | [place], [place] | | | MALINA NELSON OF BEL | [facility] | [address] | | | TESTS | | | [...] PROSPER | [address] | [place], [place] | | | [facility] | [address] | [address] | | | TESTS | | | [...] CHENG | [address] | [place], [place] | | | MALINA NELSON OF BEL | [facility] | [address] | | | TESTS | | | [...] MARDEBRA | [address] | [place], [place] | | | MALINA NELSON OF CARE | [facility] | [address] | | | TESTS | | | [...] MARQUAM | [address] | [place], [place] | | | [facility] | [address] | [address] | | | TESTS | | | [...] PROSPER | [address] | [place], [place] | | | [facility] | [address] | [address] | | | TESTS | | | [...] + + + | [facility] | [address] | [place], [place] | | | [facility] | [address] | [address] | | | TESTS | | | [...] mass | | | | | | [id number] x 12 mm in | | | [...] [facility] | [address] | [place] [address] | | | SERVICES, | [address] [...] | + + + + + | [facility] | [address] [facility] | [place] [address] | | | SERVICES, | [address] | | | | TRANSFUSION MEDICINE | | | | + + + + + INTRAOPERATIVE NEURO MONITORING (2014) + + + | Narrative | Performed At | + + + | Patient Name: Mendoza Villegas Date of : 1970 Medical | | | Record Number: [id number] Date of Test: 2014 Place of | | | Service: IP Intra Op (35) [id number] - [id number] INTRAOPERATIVE NEURO | | | MONITORING History: [...] of | | | Neurology Suggested CPT: 66200 - IOM Remote x 3 hr(s) 64504 - | | | Short Latency EP's Upper AND Lower extremities 13263 - Central Motor | | | EP's Upper AND Lower extremities 72581 - EMG Cranial Bilateral - IOM | | | 55602 - Neuromuscular Junction Test Suggested Diagnosis: 237.5 [...] | + + + + + | [facility] | [address] | [place] [address] | | | PATHOLOGY | [address] [...] | | | | NEEDED, Starting [facility] 10/25/14 at | | | | | | | 1344, Until [place] 10/28/14 at 1929, | | | | [...] | | | | NEEDED, Starting [facility] 10/25/14 | | PM PDT | [...]
--- OUTSIDE RECORDS SUMMARY | ~2019-05-24 | XMS | Encounter Summary ---
Demographics + + + | Address | [address] | | | [place] [address] | + + + | Home Phone [...] + + | Author | [facility] | + + + | Organization | [facility] | + + + | [...] Team Providers + +------+ + | Care Diamond Cleaner Name | Role | Phone | + [...] | | | 2015 | Event | [facility] | MD [address] | | | | | Admitting Desk | [address] | | | | | Located on the | [place], [place] | | | | | [facility] [address] | [address] | | | | | [address] | [phone] | | | | | [place], [place] | | | | | | [address] | | | +--------+ + + + [...]
--- OUTSIDE RECORDS SUMMARY | ~2019-05-24 | XMS | Encounter Summary ---
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 | | | | [id number] | | FS, ??? 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 We are located at the [facility], [address] [place] [address]. Address: [address] [place] [address]. Please call [phone] for questions o r concerns. 2. Follow up with your PCP to review your hospital course and medication changes. Please call to schedule this appointment. Future Appointments Date & Time Provider Department Dept Phone Center 11/09/2014 9:30 AM Bart Graham Neurosurgery at [facility] [phone] Neurosurgery Discharging Physician: JAIME HOWARD MD Attending [...] 14 | | | | bedtime. 2 [id number] | | | | | | | [...] issues Jaime Howard MD Neurosurgery Resident Pager #[phone] MEDICATIONS Current Facility-Administered Medications Medication acetaminophen (TYLENOL) [...] 7NSICU ATTENDING NEUROINTENSIVIST PROGRESS NOTE Team Pager: [phone] Attendin -------- EVENING NOTE -------- Date:10/25/2014 Critical [...] dexamethasone slow taper # Anemia: 34 # МАРНИА: home CPAP # Asthma: Albuterol prn # GERD: omeprazole # Chronic Headaches/home opioids: continue gabapentin # Leukocytosis - likely due to steroids, no other s/s of infection # Bipolar: Restart Wellbutrin, Pascola, Duloxetine, Ziprasidone, and lorazepam (prn) # Lines: CVL (subclavian), matos, PIV - d/c matos Relevant Risks: This patient is currently at risk for the following: cerebral edema, hydroc ephalus, intracerebral hemorrhage and seizure; central line associated blood stream infectio n, DVT/Pulmonary embolism, ICU delirium and UTI. I spent 30 minutes actively involved in the care and management of this patient. Sachin Ward MD [facility] DEPARTMENT: [id number] ICU NEURO Place of Service:- Inpatient Date of Service: 10/25/2014 CSN: [id number] Suggested Modifier: None Suggested CPT: TO SALES COACH RELEVANT DATA: Last Vitals: BP 112/66 | [...] charting, and discussion with treatment decision maker. [facility] DEPARTMENT: [id number] CRITICAL CARE Place of Service: Inpatient Date of Service: 10/25/2014 CSN: [id number] Suggested Level of Care: 99574 - CRITICAL CARE, 1ST HOUR EACH DAY [...] MRI -dexamethasone 4mg q6--slow taper ordered. -medication ROUTING EQUIPMENT TENDER: Geodon 160mg qHS, tramadol 50mg q6hr prn [...] for [place] - Diet: Regular diet - [facility] bowel protocol - MIVF: Normal saline w/ [...] ove assessment and plan. TORITO GONG, VALENTINA [facility] DEPARTMENT: [id number] ICU NEURO Place of Service:- Inpatient Date of Service: 10/25/2014 CSN: [id number] Suggested Modifier: None Suggested CPT: TO SALES COACH Kareen Martinez MD - 2014 6:49 PM [...] - 2014 6:19 PM PDT 7NSICU ATTENDING ROLL ICER DAILY PROGRESS NOTE Team Pager: [phone] Attendin Date:2014 Critical Care Attending Physician: SACHIN [...] asthma Home meds: Ziprasidone, Tramadol, Topiramate, Lorazepam, Pascola, Lansoprazole, Dilaudid, Celecoxib, g abapentin, duloxetine, bupropion, [...] opioids: continue gabapentin # Bipolar: Restart Wellbutrin, Pascola, Duloxetine, Ziprasidone, and lorazepam (prn) # Lines: arterial line, CVL (subclavian), matos, PIV Relevant Risks: This patient is currently at risk for the following: cerebral edema, hy drocephalus, intracerebral hemorrhage and seizure; central line associated blood stream infe ction, DVT/Pulmonary embolism, ICU delirium and UTI. I spent 65 minutes actively involved in the care and management of this patient. Sachin Ward MD [facility] DEPARTMENT: [id number] ICU NEURO Place of Service:- Inpatient Date of Service: erEDICAL RECORD NUMBER [id number] CSN: [id number] Suggested Modifier: None Suggested CPT: TO SALES COACH RELEVANT DATA: Last Vitals: BP 139/80 | [...] | + +--------+ + + + | [facility] | Routin | [...] CHENG | [address] | [place], [place] | | | MALINA NELSON OF CARE | [address] | [address] | | | TESTS | | | [...] SALLYAM | [address] | [place], [place] | | | LESLIE POINT OF CARE | [address] | [address] | | | TESTS | | | [...] | + + + + + | [facility] | [address] | [place] [address] | | | SERVICES, CORE | KAYLEN [...] | | | LABORATORY | | | INDONESIAN | | | SERVICES, | | | [...] the MDRD equation recommended by the | [facility] | | National Kidney Disease Education [...] | + + + + + | [facility] | [address] | [place] [address] | | | GABRIELLE MIRELES | KAYLEN [...] (H) | 60 - 99 mg/dL | [facility] - | | | GLUCOSE, | [...] SHELLEYQUAM | [address] | [place], [place] | | | LESLIE POINT OF CARE | [address] | [address] | | | TESTS | | | [...] CHENG | [address] | [place], [place] | | | MALINA NELSON OF BEL | [facility] | [address] | | | TESTS | | | [...] - MARQUAM | [address] | [place], [place] | | | LESLIE POINT OF CARE | [facility] | [address] | | | TESTS | | | [...] | + + + + + | [facility] LAB[facility]AT[facility] | [address] | [place] [address] | | | CHI, CORE | KAYLEN [...] | | | LABORATORY | | | INDONESIAN | | | SERVICES, | | | [...] | + + + + + | [facility] | [address] | [place] [address] | | | SERVICES, CORE | KAYLEN [...] (H) | 60 - 99 mg/dL | [facility] - | | | GLUCOSE, | [...] CHENG | [address] | [place], [place] | | | MALINA NELSON OF BEL | [address] | [address] | | | TESTS | | | [...] MARQUAM | [address] | [place], [place] | | | MALINA NELSON OF CARE | [address] | [address] | | | TESTS | | | [...] MARQUAM | [address] | [place], [place] | | | MALINA NELSON OF CARE | [address] | [address] | | | TESTS | | | [...] CHENG | [address] | [place], [place] | | | MALINA NELSON OF BEL | [address] | [address] | | | TESTS | | | | + + + + + OPERATION RECORD (10/26/2014 9:22 AM PDT) + + | Transcriptions | + + | Bart Graham MD - 2014 10:30 PM PDT Date of Service: 2014 Attending | | Surgeon: Bart Graham MD Pamphlet Distributor(s): Brady Conroy MD, | | PhD. Preoperative [...] she was placed in the Bhagat head boys tennis coach and flipped into | | the prone position on chest rolls. Her arms were tucked at her sides and all pressure | | points were carefully padded. We then registered the [employer] frameless stereotactic | | navigation system with [...] curette with Kerrison punches. We used a Iselin dissector to | | carefully dissect the [...] the subarachnoid space. We then used a Woodward | | elevator and opened the dura [...] were removed. She was removed from the Norco head boys tennis coach | | and flipped into the supine [...] 2014 | | 18:04:22DT: 2014 22:30:30Job #: [id number] | + + CAPILLARY BLOOD GLUCOSE (NO [...] MARQUAM | [address] | [place], [place] | | | MALINA NELSON OF CARE | [address] | [address] | | | TESTS | | | [...] CHENG | [address] | [place], [place] | | | MALINA NELSON OF CARE | [address] | [address] | | | TESTS | | | [...] [facility] | [address] | [place] [address] | | | SERVICES, CORE | PARK [...] | | | LABORATORY | | | INDONESIAN | | | SERVICES, | | | [...] | + + + + + | [facility] | [address] [facility] | [place] [address] | | | SERVICES, GABRIELLE | KAYLEN [...] MARQUAM | [address] | [place], [place] | | | MALINA NELSON OF BEL | [facility] | [address] | | | TESTS | | | [...] (H) | 60 - 99 mg/dL | [facility] - | | | GLUCOSE, | [...] MARQUAM | [address] | [place], [place] | | | MALINA NELSON OF [facility] | [address] | [address] | | | TESTS | | | [...] CHENG | [address] | [place], [place] | | | MALINA NELSON OF CARE | [facility] | [address] | | | TESTS | | | [...] - MARQUAM | [address] | [place], [place] | | | LESLIE POINT OF CARE | [address] | [address] | | | TESTS | | | [...] | + + + + + | [facility] | [address] | [place] [address] | | | SERVICES, SPECIAL | PARK [...] | + + + + + | [facility] | [address] | [place] [address] | | | SERVICES, CORE | KAYLEN [...] | | | LABORATORY | | | INDONESIAN | | | SERVICES, | | | [...] the MDRD equation recommended by the | [facility] | | National Kidney Disease Education Program. [...] | + + + + + | [facility] | [address] | [place] [address] | | | CHI, GABRIELLE | KAYLEN [...] | | | | | | contrast. [id number] | | | | | | reformatted [...] [facility] | [address] | [place] [address] | | | SERVICES, CORE | PARK [...] | | | LABORATORY | | | INDONESIAN | | | SERVICES, | | | [...] Interpretive Information: <60 mL/min/1.73 sq m | HCI, CORE | | Chronic Kidney Disease <15 [...] | + + + + + | [facility] | [address] [facility] | [place] [address] | | | GABRIELLE MIRELES | KAYLEN [...] | + + + + + | [facility] | [address] | [place] [address] | | | SERVICES, CORE | KAYLEN [...] [facility] | [address] | [place] [address] | | | SERVICES, GABRIELLE | KAYLEN [...] | + + + + + | [facility] | [address] | [place] [address] | | | SERVICES, CORE | PARK [...] MARLIZAM | [address] | [place], [place] | | | MALINA NELSON OF BEL | [address] | [address] | | | TESTS | | | [...] MARQUAM | [address] | [place], [place] | | | LESLIE POINT OF CARE | [facility] | [address] | | | TESTS | | | [...] + + + | MYRIAM CHENG | [address] | [place], [place] | | | MALINA NELSON OF [facility] | [address] | [address] | | | TESTS | | | [...] MARLIZAM | [address] | [place], [place] | | | MALINA NELSON OF BEL | [address] | [address] | | | TESTS | | | [...] MARLIZAM | [address] | [place], [place] | | | MALINA NELSON OF CARE | [facility] | [address] | | | TESTS | | | [...] CHENG | [address] | [place], [place] | | | MALINA NELSON OF CARE | [address] | [address] | | | TESTS | | | [...] SALLYAM | [address] | [place], [place] | | | MALINA NELSON OF CARE | [address] | [address] | | | TESTS | | | [...] + + + | MYRIAM CHENG | [address] | [place], [place] | | | MALINA NELSON OF [facility] | [address] | [address] | | | TESTS | | | [...] mass | | | | | | [id number] x 12 mm in | | | [...] | | + +---------+ + + | [facility] DEPARTMENT OF | | | | [...] [facility] | [address] | [place] [address] | | | SERVICES, | [address] [...] | + + + + + | [facility] | [address] | [place] [address] | | | SERVICES, | [address] | | | | TRANSFUSION MEDICINE | | | | + + + + + INTRAOPERATIVE NEURO MONITORING (2014) + + + | Narrative | Performed At | + + + | Patient Name: Mendoza Villegas Date of : 1970 Medical | | | Record Number: [id number] Date of Test: 2014 Place of | | | Service: IP Intra Op [phone] [id number] INTRAOPERATIVE NEURO | | | MONITORING History: [...] of | | | Neurology Suggested CPT: 67909 - IOM Remote x 3 hr(s) 71479 - | | | Short Latency EP's Upper AND Lower extremities 38928 - Central Motor | | | EP's Upper AND Lower extremities 19917 - EMG Cranial Bilateral - IOM | | | 33313 - Neuromuscular Junction Test Suggested Diagnosis: 237.5 [...] + + + + + | [facility] | [address] | [place] [address] | | | PATHOLOGY | [address] [...]
--- OUTSIDE RECORDS SUMMARY | ~2019-05-24 | XMS | Encounter Summary ---
Demographics + + + | Address | [address] | | | [place] [address] | + + + | Home Phone | | + + + | Preferred Language | Unknown | + + + | Marital Status | | + + + | Muslim Affiliation | LDS | + + + | Race | White | + + + | Ethnic Group | Not or | + + + Author + + + | Author | [facility] | + + + | Organization | [facility] | + + + | [...] Team Providers + +------+ + | Care Special Procedure Technologist Name | Role | Phone | + [...] [address] | | | | | | [place], [place] | | | | | | [address] | | | +--------+ + + + [...]
--- OUTSIDE RECORDS SUMMARY | ~2019-05-24 | XMS | Encounter Summary ---
Demographics + + + | Address | [address] | | | [place] [address] | + + + | Home Phone | | + + + | Preferred Language | Unknown | + + + | Marital Status | | + + + | Mormonism Affiliation | LDS | + + + [...] Team Providers + +------+ + | Care Electrical Installer Name | Role | Phone | [...] Karis | | | | | | [place], [place] | | | | | | [address] | | | +--------+ + + + [...]
--- OUTSIDE RECORDS SUMMARY | ~2019-05-24 | XMS | Encounter Summary ---
Demographics + + + | Address | [address] | | | [place] [address] | + + + | Home Phone | | + + + | Preferred Language | Unknown | + + + | Marital Status | | + + + | Catholic Affiliation | LDS | + + + [...] Team Providers + +------+ + | Care Straw Baler Name | Role | Phone | + +------+ + | Ashwini cOhoa NP | PCP | | + +------+ + Encounter Details +--------+ + + + + | Date | Type | Department | Care Team | Description | +--------+ + + + + | 01/29/ | Document-Sc | Health Information | Unknown . | | | 2017 | anned | Services 1991 | | | | | | [address] Misha | | | | | | Mailcode: OP17A | | | | | | [facility] | | | | | | [place], [place] | | | | | | [address] | | | | | | [phone] | | | +--------+ + + + [...]
--- OUTSIDE RECORDS SUMMARY | ~2019-05-24 | XMS | Encounter Summary ---
Demographics + + + | Address | [address] | | | [place] [address] | + + + | Home Phone [...] Team Providers + +------+ + | Care Client Care Representative Name | Role | Phone | [...] Phone Call | | 2017 | | [facility] [address] | [address] [place] | | | | | Yany Mailcode: CH8N | [place], [place] | | | | | [facility] | [address] | | | | | and Clarisse, | [phone] | | | | | [facility] | | | | | | [place], [place] | | | | | | [address] | | | | | | [phone] | | | +--------+ + + + [...]
--- OUTSIDE RECORDS SUMMARY | ~2019-05-24 | XMS | Encounter Summary ---
Demographics + + + | Address | [address] | | | [place] [address] | + + + | Home Phone [...] Team Providers + +------+ + | Care Flute Teacher Name | Role | Phone | + +------+ + | Marixa Weber MD | PCP | | + +------+ + Encounter Details +--------+ + + + + | Date | Type | Department | Care Team | Description | +--------+ + + + + | 08/28/ | Document-Sc | UNKNOWN DEPARTMENT | Other, Faculty | | | 2014 | anned | [address] [facility] | [phone] | | | | | [address] | | | | | | [place], [place] | | | | | | [address] | | | +--------+ + + + [...]
--- OUTSIDE RECORDS SUMMARY | ~2019-05-24 | XMS | Encounter Summary ---
Demographics + + + | Address | [address] | | | [place] [address] | + + + | Home Phone [...] Team Providers + +------+ + | Care Goodyear Welter Name | Role | Phone | + [...] | | | | | [place], | | | | | | [place] [address] | | | +--------+--------+ + + + [...]
--- OUTSIDE RECORDS SUMMARY | ~2019-05-24 | XMS | Encounter Summary ---
Demographics + + + | Address | [address] | | | [place] [address] | + + + | Home Phone [...] Providers + +------+ + | Care Manager Shop Name | Role | Phone | + [...] | | | | brain and | [place], [place] | [place], [place] | | | | | spinal cord | [address] | [address] | | | | | (HCC) | Phone: | Phone: | | | | | Procedures | [phone] | [phone] | | | | | REQUEST TO | Fax: | Fax: | | | | | SURGERY | [phone] | [phone] | | | | | OUTBOARD MOTOR MECHANIC | | | | | | | NH EXCIS | | | | | | | INFRATENT | | | | | | | BRAIN TUMOR | | | | | | | NH SCAN | | | | | | [...] fossa | | 2015 | Visit | [facility] [address] | [address] | tumor (HCC) (Primary | | | | Ave Mailcode: CH8N | [place], [place] | Dx) | | | | [facility] | [address] | | | | | and Healing, | [phone] | | | | | [facility] | | | | | | Floor [place], [place] | | | | | | [address] | | | | | | [phone] | | | +--------+---------+ + + + [...] by me and if not recorded in Register My Info will be scanned into the stem using [...]
--- OUTSIDE RECORDS SUMMARY | ~2019-05-24 | XMS | Encounter Summary ---
Demographics + + + | Address | [address] | | | [place] [address] | + + + | Home Phone [...] Team Providers + +------+ + | Care Extruder Operator Horizontal Name | Role | Phone | + [...] of | [place] [address] | [address] | | | | | brain (HCC) | [address] | [facility] | | | | | Procedures | [facility] | Rd | | | | | MRI BRAIN | Rd | Mailcode: | | | | | W CONTRAST - | [place], [place] | [address] | | | | | FRAMELESS | [address] | [place] | | | | | STEREOTATIC | Phone: | Research | | | | | ONLY [place] MRI | [phone] | [place] | | | | | BRAIN | Fax: | [place], [place] | | | | | CONTRAST | [phone] | [address] | | | | | | | Phone: | | | | | | | [phone] | | | | | | | Fax: | | | | | | | [phone] | +--------+--------+ + + + + Reason [...] Order | | 2015 | on | [facility] [address] | [address] | | | | | Ave Mailcode: CH8N | [place], [place] | | | | | [facility] | [address] | | | | | and Healing, | [phone] | | | | | [facility] | | | | | | [place], [place] | | | | | | [address] | | | | | | [phone] | | | +--------+ + + + [...]
--- OUTSIDE RECORDS SUMMARY | ~2019-05-24 | XMS | Encounter Summary ---
Demographics + + + | Address | [address] | | | [place] [address] | + + + | Home Phone [...] Team Providers + +------+ + | Care Radio Mechanic Apprentice Name | Role | Phone | [...] Karis | | | | | | [place], [place] | | | | | | [address] | | | +--------+ + + + [...]
--- OUTSIDE RECORDS SUMMARY | ~2019-05-24 | XMS | Encounter Summary ---
Demographics + + + | Address | [address] | | | [place] [address] | + + + | Home Phone | | + + + | Preferred Language | Unknown | + + + | Marital Status | | + + + | Spiritism Affiliation | LDS | + + + [...] Team Providers + +------+ + | Care Self Pay Specialist Name | Role | Phone | [...] | | | | | Karis Cab[place], | | | | | | [place] [address] | | | +--------+ + + + [...]
--- OUTSIDE RECORDS SUMMARY | ~2019-05-24 | XMS | Encounter Summary ---
Demographics + + + | Address | [address] | | | [place] [address] | + + + | Home Phone [...] Providers + +------+ + | Care Supervisor Rides Name | Role | Phone | + [...] | | | | | Karis Cabral [place], | | | | | | [place] [address] | | | +--------+ + + + [...]
--- OUTSIDE RECORDS SUMMARY | ~2019-05-24 | XMS | Encounter Summary ---
Demographics + + + | Address | [address] | | | [place] [address] | + + + | Home Phone | | + + + | Preferred Language | Unknown | + + + | Marital Status | | + + + | Buddhism Affiliation | LDS | + + + | Race | White | + + + | Ethnic Group | Not or | + + + Author + + + | Author | [facility] | + + + | Organization | [facility] | + + + | Address [...] Providers + +------+ + | Care Traveling Plant Operator Name | Role | Phone | + +------+ + | Ashwini Ochoa NP | PCP | | + +------+ + Encounter Details +--------+ + + + + | Date | Type | Department | Care Team | Description | +--------+ + + + + | 11/10/ | Telephone | Neurosurgery at | [place], | | | 2014 | | [facility] [address] | [address] | | | | | Yany Mailcode: CH8N | [facility] | | | | | [facility] | [place], [place] | | | | | and Clarisse, | [address] | | | | | [facility] | [phone] | | | | | Floor [place], [place] | | | | | | [address] | | | | | | [phone] | | | +--------+ + + + [...]
--- OUTSIDE RECORDS SUMMARY | ~2019-05-24 | XMS | Encounter Summary ---
Demographics + + + | Address | [address] | | | [place] [address] | + + + | Home Phone [...] Team Providers + +------+ + | Care Early Childhood Education Specialist Name | Role | Phone | [...] | | | | | Stay [address] [facility] | | | | | | [address] | | | | | | Mailcode: UHN65 | | | | | | Colleen Mobley | | | | | | [address] [place], [place] | | | | | | [address] | | | | | | [phone] | | | +--------+ + + + [...] mg by mouth once daily in the [facility]. TRAMADOL 50 MG TABLET Take 50 [...] by mouth once daily at bedtime. 2 [id number] mg CHILDREN'S MULTI-VIT GUMMIES ORAL Take by [...] perfume, lotions or powder. Remove any nail german from at least one fingernail. Do not [...] your procedure. Surgery Check in Locations Admitting [facility] Surgery Check in Time: Someone from your surgeon's office or [facility] will provide you with information regarding [...] it is after office hours, call the [facility] band head saw operator at [phone] and ask them to page your doc tor. documented in this encounter Plan of Treatment Not on filedocumented as of this encounter Visit Diagnoses Not on filedocumented in this encounter"
--- OUTSIDE RECORDS SUMMARY | ~2019-05-24 | XMS | Encounter Summary ---
Demographics + + + | Address | [address] | | | [place] [address] | + + + | Home Phone [...] Team Providers + +------+ + | Care Sofa Back Upholsterer Name | Role | Phone | + [...] | | | | | VENOUS | [place], [place] | [address] | | | | | DUPLEX LOWER | [address] | Physician's | | | | | EXTREMITY | Phone: | Pavilion | | | | | BILAT COMP | [phone] | [facility] [place] | | | | | | Fax: | [address] | | | | | | [phone] | Phone: | | | | | | | [phone] | | | | | | | Fax: | | | | | | | [phone] | +--------+--------+ + + + + Reason [...] | | | | | VENOUS | [place], [place] | [address] | | | | | DUPLEX LOWER | [address] | Physician's | | | | | EXTREMITY | Phone: | Pavilion | | | | | BILAT COMP | [phone] | [place], [place] | | | | | | Fax: | [address] | | | | | | [phone] | Phone: | | | | | | | [phone] | | | | | | | Fax: | | | | | | | [phone] | +--------+--------+ + + + + Encounter [...] | | | | | | Pavilion [place], | | | | | | [place] [address] | | | | | | [phone] | | | +--------+ + + + [...] 14 | | | | bedtime. 2 [id number] | | | | | | | [...] + +---------+ + + | [facility] DEPARTMENT OF | | | | | RADIOLOGY | | | | + +---------+ + + documented in this encounter Visit Diagnoses + + | Diagnosis | + + | Bilateral leg edema Edema | + + documented in this encounter"
--- OUTSIDE RECORDS SUMMARY | ~2019-05-24 | XMS | Encounter Summary ---
Demographics + + + | Address | [address] | | | [place] [address] | + + + | Home Phone | | + + + | Preferred Language | Unknown | + + + | Marital Status | | + + + | Restorationist Affiliation | LDS | + + + [...] | | + + +---------+ + | Andera Villegas | ECON | Unknown | | + + +---------+ + | Zina Barnett | ECON | Unknown | | + + +---------+ + Care Team Providers + +------+ + | Care Supervisor Soakers Name | Role | Phone | + [...] MRI Results | | 2017 | | [facility] [address] | [address] | | | | | Ave Mailcode: CH8N | [place], [place] | | | | | [facility] | [address] | | | | | and Clarisse, | [phone] | | | | | [facility] | | | | | | [place], [place] | | | | | | [address] | | | | | | [phone] | | | +--------+ + + + [...]
--- OUTSIDE RECORDS SUMMARY | ~2019-05-24 | XMS | Encounter Summary ---
Demographics + + + | Address | [address] | | | [place] [address] | + + + | Home Phone [...] Team Providers + +------+ + | Care Shared Services And Outsourcing Manager Name | Role | Phone | [...] | | | Procedures | Veterans | [facility] | | | | | CONSULT TO | Hospital | Rd Mailcode: | | | | | [facility] | Road | [facility] | | | | | GENETICS | [place], [place] | [place], [place] | | | | | | [address] | [address] | | | | | | Phone: | Phone: | | | | | | [phone] | [phone] | | | | | | Fax: | Fax: | | | | | | [phone] | [phone] | +--------+--------+ + + + + Diagnostic [...] | | | | | VENOUS | [place], [place] | [address] | | | | | DUPLEX LOWER | [address] | Physician's | | | | | EXTREMITY | Phone: | Pavilion | | | | | BILAT COMP | [phone] | [place], [place] | | | | | | Fax: | [address] | | | | | | [phone] | Phone: | | | | | | | [phone] | | | | | | | Fax: | | | | | | | [phone] | +--------+--------+ + + + + Reason [...] edema | | 2015 | Visit | [facility] [address] | [address] | (Primary Dx) | | | | Ave Mailcode: CH8N | [place], [place] | | | | | [facility] | [address] | | | | | and Healing, | [phone] | | | | | [facility] | | | | | | Floor [place], [place] | | | | | | [address] | | | | | | [phone] | | | +--------+---------+ + + + [...] every six hours. Take 1 tablet by [facility] every 8 hours for 2 days. Take [...] 2) Contact our office or present to [facility] Emergency Department for severe [...] | | + +---------+ + + | [facility] DEPARTMENT OF | | | | | RADIOLOGY | | | | + +---------+ + + documented in this encounter Visit Diagnoses + + | Diagnosis | + + | Bilateral leg edema - Primary Edema | + + documented in this encounter
--- OUTSIDE RECORDS SUMMARY | ~2019-05-24 | XMS | Encounter Summary ---
Demographics + + + | Address | [address] | | | [place] [address] | + + + | Home Phone [...] Team Providers + +------+ + | Care Hardware Installer Name | Role | Phone | + +------+ + | Ashwini Ochoa NP | PCP | | + +------+ + Encounter Details +--------+ + + + + | Date | Type | Department | Care Team | Description | +--------+ + + + + | 10/18/ | Check Examiner | Neurosurgery at | Tali Jackson, | Neoplasm of brain | | 2014 | | [facility] [address] | PA-C [address] | (HCC) (Primary Dx) | | | | Ave Mailcode: CH8N | Ave [place], [place] | | | | | [facility] | [address] | | | | | and Healing, | [phone] | | | | | [facility] | | | | | | Floor [facility] [place] | | | | | | [address] | | | | | | [phone] | | | +--------+ + + + [...]
--- OUTSIDE RECORDS SUMMARY | ~2019-05-24 | XMS | Clinical Summary ---
Demographics + + + | Address | [address] | | | [place] [address] | + + + | Home Phone | | + + + | Preferred Language | Unknown | + + + | Marital Status | | + + + | Yarsani Affiliation | Unknown | + + + | Race | Unknown | + + + | Ethnic Group | Unknown | + + + Author + + + | Author | [facility] (Historical as of | | | 03-18-19) | + + + | Organization | [facility] (Historical as of | | | 03-18-19) [...] [place] | | | | | [address] | | + + + + + Care Team Providers + +------+ + | Care Archival Records Clerk Name | Role | Phone | [...] | 0/20 | | e | | 233[address] UNITS capsule | | | | 14 [...] +------+-------+ + | PREMERA | PREMER | [id number] | | | [address] [address] | | | A BLUE | 1 | | | [place] | | | CARD | | | | [address] | +---------+--------+ +------+-------+ + + +--------+ +--------+ [...] | meredith | | | [address] | [address] | + +--------+ +--------+ + +"
--- OUTSIDE RECORDS SUMMARY | ~2019-05-24 | XMS | Encounter Summary ---
Demographics + + + | Address | [address] | | | [place] [address] | + + + | Home Phone | | + + + | Preferred Language | Unknown | + + + | Marital Status | | + + + | Worship Affiliation | LDS | + + + [...] Team Providers + +------+ + | Care Pelt Dropper Name | Role | Phone | + [...] | | | | | Karis Cabral [place], | | | | | | [place] [address] | | | +--------+--------+ + + + [...]
--- OUTSIDE RECORDS SUMMARY | ~2019-05-24 | XMS | Encounter Summary ---
Demographics + + + | Address | [address] | | | [place] [address] | + + + | Home Phone [...] Team Providers + +------+ + | Care Customer Service Agent Name | Role | Phone | [...] | | | | Subependymom | [place] [address] | | | | | | a (HCC) | [address] | | | | | | Procedures | Karis [place]ral | | | | | | MRI BRAIN | [place], [place] | | | | | | TUMOR | [address] | | | | | | EVALUATION | Phone: | | | | | | WWO CONTRAST | [phone] | | | | | | | Fax: | | | | | | | [phone] | | +--------+--------+ + + + + [...] (HCC) | | 2015 | Visit | [facility] [address] | [address] | (Primary Dx) | | | | Ave Mailcode: CH8N | [place], [place] | | | | | [facility] | [address] | | | | | and Healing, | [phone] | | | | | [facility] | | | | | | Floor [place], [place] | | | | | | [address] | | | | | | [phone] | | | +--------+---------+ + + + [...] reports that she is doing well ov [facility]. She denies headaches currently. She does note [...] every six hours. Take 1 tablet by [facility] every 8 hours for 2 days. Take [...] underlying tenderness IMAGING: No new imaging Assessment: Mednoza Villegas is a 44 y.o. year old [...] also contact us to fax referral for [facility] in [facility]. 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
--- OUTSIDE RECORDS SUMMARY | ~2019-05-24 | XMS | Encounter Summary ---
Demographics + + + | Address | [address] | | | [place] [address] | + + + | Home Phone [...] Providers + +------+ + | Care Hide Shaker Name | Role | Phone | + [...] | | | 2015 | Event | [facility] | MD [address] | | | | | Admitting Desk | [address] | | | | | Located on the | [place], [place] | | | | | [facility] [address] | [address] | | | | | [address] | [phone] | | | | | [place], [place] | | | | | | [address] | | | +--------+ + + + [...]
--- OUTSIDE RECORDS SUMMARY | ~2019-05-24 | XMS | Encounter Summary ---
Demographics + + + | Address | [address] | | | [place] [address] | + + + | Home Phone [...] Team Providers + +------+ + | Care Fuel Cell Binder Name | Role | Phone | + [...] | | | | | Stay [address] [facility] | | | | | | [address] | | | | | | Mailcode: UHN65 | | | | | | Colleen Mobley | | | | | | [address] [place], [place] | | | | | | [address] | | | | | | [phone] | | | +--------+ + + + [...] mg by mouth once daily in the [facility]. TRAMADOL 50 MG TABLET Take [...] by mouth once daily at bedtime. 2 [id number]=322 mg CHILDREN'S MULTI-VIT GUMMIES ORAL Take by [...] your procedure. Surgery Check in Locations Admitting [facility] Surgery Check in Time: Someone from your surgeon's office or [facility] will provide you with information regarding your [...] it is after office hours, call the [facility] ball rolling machine operator at [phone] and ask them to page your doc tor. documented in this encounter Plan of Treatment Not on filedocumented as of this encounter Visit Diagnoses Not on filedocumented in this encounter"
--- OUTSIDE RECORDS SUMMARY | ~2019-05-24 | XMS | Encounter Summary ---
Demographics + + + | Address | [address] | | | [place] [address] | + + + | Home Phone [...] + +------+ + | Care Head Of Design Name | Role | Phone | + [...] Phone Call | | 2017 | | [facility] [address] | [address] [place] | | | | | Yany Mailcode: CH8N | [place], [place] | | | | | [facility] | [address] | | | | | and Clarisse, | [phone] | | | | | [facility] | | | | | | [place], [place] | | | | | | [address] | | | | | | [phone] | | | +--------+ + + + [...]
--- OUTSIDE RECORDS SUMMARY | ~2019-05-24 | XMS | Encounter Summary ---
Demographics + + + | Address | [address] | | | [place] [address] | + + + | Home Phone [...] Providers + +------+ + | Care Interior Design Coordinator Name | Role | Phone | + +------+ + | Ashwini Ochoa NP | PCP | | + +------+ + Encounter Details +--------+ + + + + | Date | Type | Department | Care Team | Description | +--------+ + + + + | 06/07/ | Document-Sc | Health Information | Unknown . | | | 2013 | anned | Services [id number] | | | | | | [address] | | | | | | Mailcode: OP17A | | | | | | [facility] | | | | | | [place], [place] | | | | | | [address] | | | | | | [phone] | | | +--------+ + + + [...]
--- OUTSIDE RECORDS SUMMARY | ~2019-05-24 | XMS | Encounter Summary ---
Demographics + + + | Address | [address] | | | [place] [address] | + + + | Home Phone [...] Providers + +------+ + | Care Medical Receptionist Biller Name | Role | Phone | + +------+ + | Ashwini Ochoa NP | PCP | | + +------+ + Encounter Details +--------+ + + + + | Date | Type | Department | Care Team | Description | +--------+ + + + + | 03/06/ | Document-Sc | Health Information | Unknown . | | | 2013 | anned | Services [id number] | | | | | | [address] | | | | | | Mailcode: OP17A | | | | | | [facility] | | | | | | [place], [place] | | | | | | [address] | | | | | | [phone] | | | +--------+ + + + [...]
--- OUTSIDE RECORDS SUMMARY | ~2019-05-24 | XMS | Encounter Summary ---
Demographics + + + | Address | [address] | | | [place] [address] | + + + | Home Phone [...] Team Providers + +------+ + | Care Yarding Supervisor Name | Role | Phone | [...] Rd | | | | | | [place], [place] | | | | | | [address] | | | +--------+ + + + [...]
--- OUTSIDE RECORDS SUMMARY | ~2019-05-24 | XMS | Encounter Summary ---
Demographics + + + | Address | [address] | | | [place] [address] | + + + | Home Phone [...] Team Providers + +------+ + | Care Office Mover Name | Role | Phone | + [...] | | | | brain and | [place], [place] | [place], [place] | | | | | spinal cord | [address] | [address] | | | | | (HCC) | Phone: | Phone: | | | | | Procedures | [phone] | [phone] | | | | | REQUEST TO | Fax: | Fax: | | | | | SURGERY | [phone] | [phone] | | | | | WOODWINDS TEACHER | | | | | | | [...] fossa | | 2015 | Visit | [facility] [address] | [address] | tumor (HCC) (Primary | | | | Ave Mailcode: CH8N | [place], [place] | Dx) | | | | [facility] | [address] | | | | | and Healing, | [phone] | | | | | [facility] | | | | | | Floor [place], [place] | | | | | | [address] | | | | | | [phone] | | | +--------+---------+ + + + [...] by me and if not recorded in [place] group will be scanned into the stem using [...]
--- OUTSIDE RECORDS SUMMARY | ~2019-05-24 | XMS | Clinical Summary ---
Demographics + + + | Address | [address] | | | [place] [address] | + + + | Home Phone [...] Providers + +------+ + | Care Cattle Dealer Name | Role | Phone | + +------+ + | Marixa Weber MD | PCP | | + +------+ + Source Comments LIZZJUAN is fully live on both [facility] and [facility] InPatient.[facility] Allergies + + + + [...] | e | | | bedtime. 2 [id number] | | | 14 | | | [...] 12/29/ | [id number] | | 3 - [id number]: Qty: | | Head | LIFESCIENCE | | 2017 | 91 / | | 1 on 2014 by Santos | | | S | | | /[id number] | | MD Bart at [facility] | | | | | | 70 | | REV LOC | | | | | | | + +------+-------+ +--------+--------+--------+ | Mesh Contour [id number] | | N/A: | [employer] | | | 04.503 | | Malleable Matrix Neuro - | | Head | | | | .083 / | | [id number]: Qty: 1 on | | | | | | / | | 2014 by Bart Graham, | | | | | | | | MD at [facility] INPATIENT REV LOC | | | | | | | + +------+-------+ +--------+--------+--------+ | Screw 04mm Ti Self-Drill | | N/A: | [facility] | | | 04.503 | | Matrix Neuro - | | Head | | | | .104.0 | | [id number]: Qty: 6 on | | | | | | 1 / / | | 2014 by Bart Graham, | | | | | | | | MD at [facility] INPATIENT REV LOC | | | [...] | x | 008-Pr | 8 | [address] | | | | STATE | | esent | | [place], | | | | | | | | [place] | | | | | | | | [address] | | + +--------+ +--------+ + +------+ [...] meredith | | | 1 (Home) | [address] | + +--------+ +--------+ + + Advance [...]
--- OUTSIDE RECORDS SUMMARY | ~2019-05-24 | XMS | Encounter Summary ---
Demographics + + + | Address | [address] | | | [place] [address] | + + + | Home Phone [...] Team Providers + +------+ + | Care Litigation Paralegal Name | Role | Phone | + +------+ + | Ashwini Ochoa NP | PCP | | + +------+ + Encounter Details +--------+ + + + + | Date | Type | Department | Care Team | Description | +--------+ + + + + | 03/06/ | Document-Sc | Health Information | Unknown . | | | 2013 | anned | Services [id number] | | | | | | [address] | | | | | | Mailcode: OP17A | | | | | | [facility] | | | | | | [place], [place] | | | | | | [address] | | | | | | [phone] | | | +--------+ + + + [...]
--- OUTSIDE RECORDS SUMMARY | ~2019-05-24 | XMS | Encounter Summary ---
Demographics + + + | Address | [address] | | | [place] [address] | + + + | Home Phone [...] Team Providers + +------+ + | Care Him Assistant Name | Role | Phone | + +------+ + | Ashwini Ochoa NP | PCP | | + +------+ + Encounter Details +--------+ + + + + | Date | Type | Department | Care Team | Description | +--------+ + + + + | 11/10/ | Telephone | Neurosurgery at | [place], | | | 2014 | | [facility] [address] | [address] | | | | | Yany Mailcode: CH8N | [facility] | | | | | [facility] | [place], [place] | | | | | and [place], | [address] | | | | | [facility] | [phone] | | | | | Floor [place], [place] | | | | | | [address] | | | | | | [phone] | | | +--------+ + + + [...]
--- OUTSIDE RECORDS SUMMARY | ~2019-05-24 | XMS | Encounter Summary ---
Demographics + + + | Address | [address] | | | [place] [address] | + + + | Home Phone [...] Team Providers + +------+ + | Care Biomass Boiler Operator Name | Role | Phone | [...] | | | | Subependymom | [place] [address] | | | | | | a (HCC) | [address] | | | | | | Procedures | Karis Cabral | | | | | | MRI BRAIN | [place], [place] | | | | | | TUMOR | [address] | | | | | | EVALUATION | Phone: | | | | | | WWO CONTRAST | [phone] | | | | | | | Fax: | | | | | | | [phone] | | +--------+--------+ + + + + [...] (HCC) | | 2015 | Visit | [facility] [address] | [address] | (Primary Dx) | | | | Ave Mailcode: CH8N | [place], [place] | | | | | [facility] | [address] | | | | | and Healing, | [phone] | | | | | [facility] | | | | | | Floor [place], [place] | | | | | | [address] | | | | | | [phone] | | | +--------+---------+ + + + [...] Take 1 tablet by [facility] every 8 hours for 2 days. Take [...] also contact us to fax referral for [facility] in [facility]. 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
--- OUTSIDE RECORDS SUMMARY | ~2019-05-24 | XMS | Encounter Summary ---
Demographics + + + | Address | [address] | | | [place] [address] | + + + | Home Phone [...] Team Providers + +------+ + | Care Pulpwood Dealer Name | Role | Phone | [...] Board | | 2015 | on | [facility] [address] | ,PhD [address] | Recommendation | | | | Yany Mailcode: CH8N | [facility] | | | | | [facility] | [place], [place] | | | | | and Clarisse, | [address] | | | | | [facility] | [phone] | | | | | [place], [place] | | | | | | [address] | | | | | | [phone] | | | +--------+ + + + [...]
--- OUTSIDE RECORDS SUMMARY | ~2019-05-24 | XMS | Encounter Summary ---
Demographics + + + | Address | [address] | | | [place] [address] | + + + | Home Phone [...] Team Providers + +------+ + | Care Churn Tender Name | Role | Phone | + +------+ + | Ashwini Ochoa NP | PCP | | + +------+ + Encounter Details +--------+ + + + + | Date | Type | Department | Care Team | Description | +--------+ + + + + | 01/29/ | Document-Sc | Health Information | Unknown . | | | 2017 | anned | Services 0501 | | | | | | [address] | | | | | | Mailcode: OP17A | | | | | | [facility] | | | | | | [place], [place] | | | | | | [address] | | | | | | [phone] | | | +--------+ + + + [...]
--- OUTSIDE RECORDS SUMMARY | ~2019-05-24 | XMS | Encounter Summary ---
Demographics + + + | Address | [address] | | | [place] [address] | + + + | Home Phone [...] Team Providers + +------+ + | Care Remelt Sugar Boiler Name | Role | Phone | [...] Board | | 2015 | on | [facility] [address] | ,PhD [address] | Recommendation | | | | Yany Mailcode: CH8N | [facility] | | | | | [facility] | [place], [place] | | | | | and Clarisse, | [address] | | | | | [facility] | [phone] | | | | | [place], [place] | | | | | | [address] | | | | | | [phone] | | | +--------+ + + + [...]
--- OUTSIDE RECORDS SUMMARY | ~2019-05-24 | XMS | Encounter Summary ---
Demographics + + + | Address | [address] | | | [place] [address] | + + + | Home Phone [...] Team Providers + +------+ + | Care Spring Manufacturing Set Up Technician Name | Role | Phone | [...] | | | | MRI BRAIN | [place], [place] | | | | | | TUMOR | [address] | | | | | | EVALUATION | Phone: | | | | | | WWO CONTRAST | [phone] | | | | | | | Fax: | | | | | | | [phone] | | +--------+--------+ + + + + [...] | | 2016 | | [facility] [address] | [address] | | | | | Yany Mailcode: CH8N | [place], [place] | | | | | [facility] | [address] | | | | | and Healing, | [phone] | | | | | [facility] | | | | | | Floor [place], [place] | | | | | | [address] | | | | | | [phone] | | | +--------+ + + + [...]
--- OUTSIDE RECORDS SUMMARY | ~2019-05-24 | XMS | Encounter Summary ---
Demographics + + + | Address | [address] | | | [place] [address] | + + + | Home Phone [...] Team Providers + +------+ + | Care Boat Canvas Maker Installer Name | Role | Phone | [...] Refill Request | | 2014 | | [facility] [address] | [address] | | | | | Yany Mailcode: CH8N | [place], [place] | | | | | [facility] | [address] | | | | | and Clarisse, | [phone] | | | | | [facility] | | | | | | [place], [place] | | | | | | [address] | | | | | | [phone] | | | +--------+ + + + [...]
--- OUTSIDE RECORDS SUMMARY | ~2019-05-24 | XMS | Encounter Summary ---
Demographics + + + | Address | [address] | | | [place] [address] | + + + | Home Phone [...] Providers + +------+ + | Care Community Nutrition Educator Name | Role | Phone | [...] Refill Request | | 2014 | | [facility] [address] | [address] | | | | | Yany Mailcode: CH8N | [place], [place] | | | | | [facility] | [address] | | | | | and Clarisse, | [phone] | | | | | [facility] | | | | | | [place], [place] | | | | | | [address] | | | | | | [phone] | | | +--------+ + + + [...]
--- OUTSIDE RECORDS SUMMARY | ~2019-05-24 | XMS | Clinical Summary ---
Demographics + + + | Address | [address] | | | [place] [address] | + + + | Home Phone [...] Author | [facility] | | | and Luis Danielana [...] Team Providers + +------+ + | Care Elevator Conductor Name | Role | Phone | + [...] 0 | | | Activ | | ATXL-Jcujhtha-Sahvse | as needed (pain). | | | [...] +-------+--------+ +--------+-------+---------+------+ | BCBS | BCBS | [id number] | | | | PPO | | [...] meredith | | | 1 (Home) | [address] | + +--------+ +--------+ + + Advance Directives Patient has advance care planning documents on file. For more information, please contact:[facility] [place] [address]"
--- OUTSIDE RECORDS SUMMARY | ~2019-05-24 | XMS | Encounter Summary ---
Demographics + + + | Address | [address] | | | [place] [address] | + + + | Home Phone [...] Team Providers + +------+ + | Care Curriculum Development Manager Name | Role | Phone [...] | brain (HCC) | [address] | [facility] | | | | | Procedures | [facility] | Rd | | | | | MRI BRAIN | Rd | Mailcode: | | | | | W CONTRAST - | [place], [place] | [address] | | | | | FRAMELESS | [address] | [place] | | | | | STEREOTATIC | Phone: | Research | | | | | ONLY [place] MRI | [phone] | [place] | | | | | BRAIN | Fax: | [place], [place] | | | | | CONTRAST | [phone] | [address] | | | | | | | Phone: | | | | | | | [phone] | | | | | | | Fax: | | | | | | | [phone] | +--------+--------+ + + + + Reason [...] Order | | 2015 | on | [facility] [address] | [address] | | | | | Ave Mailcode: CH8N | [place], [place] | | | | | [facility] | [address] | | | | | and Healing, | [phone] | | | | | [facility] | | | | | | [place], [place] | | | | | | [address] | | | | | | [phone] | | | +--------+ + + + [...]
--- OUTSIDE RECORDS SUMMARY | ~2019-05-24 | XMS | Encounter Summary ---
Demographics + + + | Address | [address] | | | [place] [address] | + + + | Home Phone [...] Providers + +------+ + | Care Tool And Die Designer Name | Role | Phone | [...] Rd | | | | | | [place], [place] | | | | | | [address] | | | +--------+ + + + [...]
[~2019-05-24 20:31] MED LIST changes: +TRAMADOL HCL50 MG PO
--- OUTSIDE RECORDS SUMMARY | 2019-05-24 20:34 | XMS ---
PreManage Notification: MAGALIS BLACKMAN Security Blade Filer Events No recent Security Events currently on file CRITERIA MET - [facility] - Has Care Guidelines - PDMP - [facility] - 2 Visits in 30 Days CARE PROVIDERS FAYE DELGADO Internal Medicine 10/18/2018-Alisha DORAN PHONE: [phone] FAYE DELGADO Primary Care Current PHONE: Unknown Nathanael Jackson MD PHONE: Unknown Guidelines Source: [facility] [employer] [facility] [place] Guidelines Date: 05/22/2019 Care Coordination: Mental health services provided by [facility] [employer] [facility].\T\nbsp; Please contact [facility] [employer] [facility] with mental health concerns.\T\nbsp; Nelly/Pritchett: [phone]\T\ nbsp; Inessa: [phone]. Care History Medical/Surgical 10/18/2018 [facility] - Patient is currently established with [facility]. If patient is seen in the ED during business hours. Please contact [facility] at [facility]. Care Recommendation: This patient has had 5 [...] providing care. E.D. VISIT COUNT (12 MO.) [address] TOTAL 5 NOTE: Visits indicate total known visits. ED/UCC VISIT TRACKING (12 MO.) 05/24/2019 20:31 [facility] [place] TYPE: Emergency COMPLAINT: - ABDOMINAL SWELLING AND BLEEDING 05/21/2019 19:47 [facility] [place] TYPE: Emergency DIAGNOSES: - ABD PAIN 05/20/2019 22:32 [facility] [place] TYPE: Emergency COMPLAINT: - ABD PAIN DIAGNOSES: - Other terminal gauger (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 - Essential (primary) hypertension - Allergy status to analgesic agent status - Nicotine dependence, unspecified, uncomplicated - Left lower quadrant pain - Latex allergy status - Exposure to other specified factors, initial encounter - Allergy status to narcotic agent status - Strain of muscle, fascia and tendon of abdomen, init encntr - Other nonmedicinal substance allergy status - Allergy status to oth drug/meds/biol subst status 10/17/2018 10:13 [facility] [place] TYPE: Emergency [...] substances - Sleep apnea, unspecified - Other senior living (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 08/14/2018 22:[address] [facility] [place] TYPE: Emergency COMPLAINT: - POST OP PROBLEM/INFECTION DIAGNOSES: - Other senior living (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 - Nicotine dependence, unspecified, [...] visits to display in this time frame [email or web address]
[2019-05-24] MEDS ORDERED: DULOXETINE HCL30 MG PO (20:54)
[2019-05-24] MEDS ORDERED: BUPROPION HCL200 MG PO (20:55)
[2019-05-24] MEDS ORDERED: CLONIDINE HCL0.1 MG PO (20:55)
[2019-05-24] MEDS ORDERED: LITHIUM CARBON300 MG PO (20:55)
== END 2019-05-25 00:45 | disposition home or self-care (01) ==
LOC: ED 20:31
DX: M79.81 Nontraumatic hematoma of soft tissue (principal); D64.9 Anemia, unspecified; I10 Essential (primary) hypertension; J45.909 Unspecified asthma, uncomplicated; F31.9 Bipolar disorder, unspecified; G47.30 Sleep apnea, unspecified; Z91.048 Other nonmedicinal substance allergy status; Z91.040 Latex allergy status; Z88.5 Allergy status to narcotic agent; Z88.6 Allergy status to analgesic agent; Z88.8 Allergy status to other drugs, medicaments and biological substances; Z79.899 Other long term (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
CPT/HCPCS: 36415; 74177; 85025; 85610; 85730; 86850; 86870; 86900; 86901; 99284-25; J1170; Q9967

== ENCOUNTER 2019-05-25 13:58 | Emergency (ER) | payer BC ==
[~2019-05-25] VITALS: Ht 152.4 cm; Wt 97.5 kg
--- OUTSIDE RECORDS SUMMARY | ~2019-05-25 | XMS | Clinical Summary ---
Demographics + + + | Address | [address] | | | [place] [address] | + + + | Home Phone | | + + + | Preferred Language | Unknown | + + + | Marital Status | | + + + | Amish Affiliation | Unknown | + + + | Race | Unknown | + + + | Ethnic Group | Unknown | + + + Author + + + | Author | [facility] (Historical as of | | | 03-18-19) | + + + | Organization | [facility] (Historical as of | | | 03-18-19) | + + + | Address | Unknown | + + + | Phone | Unavailable | + + + Support + + + + + | Name | Relationship | Address | Phone | + + + + + | Tiffany Pizarro | ECON | Unknown | | | e | | | | + + + + + | Andrea Villegas | ECON | [address] | | | | | [place] | | | | | [address] | | + + + + + Care Team Providers + +------+ + | Care Security And Compliance Analyst Name | Role | Phone | + +------+ + | Ramesh Coombs DO | PP | | + +------+ + Allergies + + + + + + | Active Allergy | Reactions | Severity | Noted | Comments | | | | | Date | | + + + + + + | Codeine | Other (See Comments) | Medium | 08/20/19 | Not listed | | | | | 15 | | + + + + + + Current Medications + + +-------+---------+------+------+-------+ | Prescription | Sig. | Disp. | Refills | Star | End | Statu | | | | | | t | Date | s | | | | | | Date | | | + + +-------+---------+------+------+-------+ | HYDROmorphone | Take 2 mg by mouth. | | | 08/02 | | Activ | | (DILAUDID) 2 MG | | | | 09/21 | | e | | tablet | | | | 15 | | | + + +-------+---------+------+------+-------+ | lansoprazole | Take 30 mg by mouth | | | 01/0 | | Activ | | (PREVACID) 30 MG | nightly. | | | 4/20 | | e | | capsule | | | | 15 | | | + + +-------+---------+------+------+-------+ | lithium carbonate | Take 900 mg by mouth | | | 12/3 | | Activ | | 300 MG capsule | nightly. | | | 0/20 | | e | | | | | | 14 | | | + + +-------+---------+------+------+-------+ | | Take 10 mLs by | | | 01/0 | | Activ | | sulfamethoxazole-tri | mouth. | | | 2/20 | | e | | methoprim (BACTRIM) | | | | 15 | | | | 200-40 MG/5ML | | | | | | | | suspension | | | | | | | + + +-------+---------+------+------+-------+ | ziprasidone | Take 80 mg by mouth | | | 01/1 | | Activ | | (GEODON) 80 MG | nightly. | | | 20 | | e | | capsule | | | | 15 | | | + + +-------+---------+------+------+-------+ | topiramate | Take 50 mg by mouth | | | 01/0 | | Activ | | (TOPAMAX) 25 MG | 2 (two) times daily. | | | 20 | | e | | tablet | HS and AM | | | 15 | | | + + +-------+---------+------+------+-------+ | XULANE 150-35 | Place 1 patch onto | | | 01/0 | | Activ | | MCG/24HR | the skin once a | | | 5/20 | | e | | | week. | | | 15 | | | + + +-------+---------+------+------+-------+ | meloxicam (MOBIC) | Take 7.5 mg by mouth | | | 12/0 | | Activ | | 7.5 MG tablet | 2 (two) times | | | 3/20 | | e | | | daily. | | | 14 | | | + + +-------+---------+------+------+-------+ | vitamin D2, | Take 50,000 Units by | | | 10/3 | | Activ | | ergocalciferol, | mouth once a week. | | | 0/20 | | e | | 73133 UNITS capsule | | | | 14 | | | + + +-------+---------+------+------+-------+ | DULoxetine | Take 60 mg by mouth | | | 11/2 | | Activ | | (CYMBALTA) [address] | daily. | | | 0/20 | | e | | capsule | | | | 14 | | | + + +-------+---------+------+------+-------+ | buPROPion | Take 300 mg by mouth | | | 11/2 | | Activ | | (WELLBUTRIN XL) 300 | every morning. | | | 0/20 | | e | | MG 24 hr tablet | | | | 14 | | | + + +-------+---------+------+------+-------+ | silver | | | | 11/2 | | Activ | | sulfADIAZINE | | | | 0/20 | | e | | (SILVADENE) 1 % | | | | 14 | | | | cream | | | | | | | + + +-------+---------+------+------+-------+ | gabapentin | Take 900 mg by mouth | | | 11/2 | | Activ | | (NEURONTIN) 300 MG | 2 (two) times | | | 0/20 | | e | | capsule | daily. 900 mg 2 | | | 14 | | | | | hours before bedtime | | | | | | | | and 900 mg at | | | | | | | | bedtime | | | | | | + + +-------+---------+------+------+-------+ | LORazepam (ATIVAN) | Take 1 mg by mouth | | | 12/1 | | Activ | | 1 MG tablet | as needed. | | | 9/20 | | e | | | | | | 14 | | | + + +-------+---------+------+------+-------+ | | Take 1 tablet by | | | | | Activ | | aspirin-acetaminophe | mouth every 6 (six) | | | | | e | | n-caffeine (EXCEDRIN | hours as needed for | | | | | | | MIGRAINE) | Pain. | | | | | | | 250-250-65 MG per | | | | | | | | tablet | | | | | | | + + +-------+---------+------+------+-------+ | acetaminophen | Take 500 mg by mouth | | | | | Activ | | (TYLENOL) 500 MG | every 6 (six) hours | | | | | e | | tablet | as needed for Pain. | | | | | | + + +-------+---------+------+------+-------+ | Pediatric Multiple | Take by mouth | | | | | Activ | | Vitamins (CHEWABLE | daily. | | | | | e | | MULTIPLE VITAMINS | | | | | | | | PO) | | | | | | | + + +-------+---------+------+------+-------+ | Calcium-Vitamin | Take 3 tablets by | | | | | Activ | | D-Vitamin K (CALCIUM | mouth daily. | | | | | e | | SOFT CHEWS PO) | | | | | | | + + +-------+---------+------+------+-------+ Active Problems + + + | Problem | Noted Date | + + + | Brain tumor | 08/20/2014 | + + + Family History + + +------+ + | Medical History | Relation | Name | Comments | + + +------+ + | Stroke | Father | | | + + +------+ + | Diabetes | Mother | | | + + +------+ + | Cancer | Other | | | + + +------+ + | Heart disease | Other | | | + + +------+ + + +------+ + + | Relation | Name | Status | Comments | + +------+ + + | Father | | | | + +------+ + + | Mother | | Alive | | + +------+ + + | Other | | | | + +------+ + + Social History + +-------+ +--------+------+ | Tobacco Use | Types | Packs/Day | Years | Date | | | | | Used | | + +-------+ +--------+------+ | Former Smoker | | | | | + +-------+ +--------+------+ + + +---------+ + | Alcohol Use | Drinks/We | oz/Week | Comments | | | ek | | | + + +---------+ + | No | | | | + + +---------+ + + + + | Sex Assigned at | Date Recorded | | | | + + + | Not on file | | + + + Last Filed Vital Signs + + + + | Vital Sign | Reading | Time Taken | + + + + | Blood Pressure | 151/89 | 08/20/2014 1:27 PM PST | + + + + | Pulse | 100 | 08/20/2014 1:27 PM PST | + + + + | Temperature | - | - | + + + + | Respiratory Rate | - | - | + + + + | Oxygen Saturation | 100% | 08/20/2014 1:27 PM PST | + + + + | Inhaled Oxygen | - | - | | Concentration | | | + + + + | Weight | 74.8 kg (165 lb) | 08/20/2014 1:27 PM PST | + + + + | Height | 152.4 cm (5') | 08/20/2014 1:27 PM PST | + + + + | Body Mass Index | 32.22 | 08/20/2014 1:27 PM PST | + + + + Plan of Treatment + + + + + | Health Maintenance | Due Date | Last Done | Comments | + + + + + | Vaccine: | | | | | Dtap/Tdap/Td (1 - | 1 | | | | Tdap) | | | | + + + + + | Cervical Cancer | | | | | Screening (Pap) | 2 | | | + + + + + | Vaccine: Influenza | | 04/23/2014 | | | (#1) | 9 | | | + + + + + Results Not on filefrom Last 3 Months Insurance +---------+--------+ +------+-------+ + | Payer | Benefi | Subscriber | Type | Phone | Address | | | t Plan | ID | | | | | | / | | | | | | | Group | | | | | +---------+--------+ +------+-------+ + | PREMERA | PREMER | [id number] | | | [address] [address] | | | A BLUE | 1 | | | [place] | | | CARD | | | | [address] | +---------+--------+ +------+-------+ + + +--------+ +--------+ + + | Guarantor Name | Accoun | Relation to | Date | Phone | Billing Address | | | t Type | Patient | of | | | | | | | | | | + +--------+ +--------+ + + | MAGALIS VILLEGAS | Person | Self [birth year] Home: | [address] | | | al/Chris | | 1971 | [phone] [place] | | | [place] | | | [phone] | [phone] | + +--------+ +--------+ + +"
--- OUTSIDE RECORDS SUMMARY | ~2019-05-25 | XMS | Encounter Summary ---
Demographics + + + | Address | [address] | | | [place] [address] | + + + | Home Phone | | + + + | Preferred Language | Unknown | + + + | Marital Status | | + + + | Yazdanism Affiliation | LDS | + + + | Race | White | + + + | Ethnic Group | Not or | + + + Author + + + | Author | [facility] | + + + | Organization | [facility] | + + + | [...] Team Providers + +------+ + | Care Agricultural Appraiser Name | Role | Phone | + +------+ + | Ashwini Ochoa NP | PCP | | + +------+ + Encounter Details +--------+ + + + + | Date | Type | Department | Care Team | Description | +--------+ + + + + | 01/29/ | Document-Sc | Health Information | Unknown . | | | 2017 | anned | [address] | | | | | | [address] | | | | | | Mailcode: [id number] | | | | | | [facility] | | | | | | [place], [place] | | | | | | [address] | | | | | | [phone] | | | +--------+ + + + [...] | + +--------+ + + + | RADIOLOGY | | 01/29/2017 | | Results for this | | | | 12:00 AM | | procedure are in the | | | | PDT | | results section. | + +--------+ + + + documented in this encounter Results RADIOLOGY (01/29/2017 12:00 AM PDT) + + + | Narrative | Performed At | + + + | | | + + + documented in this encounter Visit Diagnoses Not on filedocumented in this encounter"
--- OUTSIDE RECORDS SUMMARY | ~2019-05-25 | XMS | Encounter Summary ---
Demographics + + + | Address | [address] | | | [place] [address] | + + + | Home Phone | | + + + | Preferred Language | Unknown | + + + | Marital Status | | + + + | Buddhist Affiliation | LDS | + + + | Race | White | + + + | Ethnic Group | Not or | + + + Author + + + | Author | [facility] | + + + | Organization | [facility] | + + + | [...] Team Providers + +------+ + | Care Assault Amphibious Vehicle Crewman Name | Role | Phone | + +------+ + PCP | Unavailable | + +------+ + Encounter Details +--------+ + + + + | Date | Type | Department | Care Team | Description | +--------+ + + + + | 08/27/ | Document-Sc | UNKNOWN DEPARTMENT | Unknown . | | | 2014 | anned | [address] | | | | | | [place] | | | | | | [place], [place] | | | | | | [address] | | | +--------+ + + + [...]
--- OUTSIDE RECORDS SUMMARY | ~2019-05-25 | XMS | Encounter Summary ---
Demographics + + + | Address | [address] | | | [place] [address] | + + + | Home Phone | | + + + | Preferred Language | Unknown | + + + | Marital Status | | + + + | Baptism Affiliation | LDS | + + + | Race | White | + + + | Ethnic Group | Not or | + + + Author + + + | Author | [facility] | + + + | Organization | [facility] | + + + | Address [...] Team Providers + +------+ + | Care Traveling Sales Executive Name | Role | Phone | + [...] Refill Request | | 2014 | | [facility] [address] | [address] | | | | | Yany Mailcode: CH8N | [place], [place] | | | | | [facility] | [address] | | | | | and [place], | [phone] | | | | | [facility] | | | | | | [place], [place] | | | | | | [address] | | | | | | [phone] | | | +--------+ + + + [...]
--- OUTSIDE RECORDS SUMMARY | ~2019-05-25 | XMS | Encounter Summary ---
Demographics + + + | Address | [address] | | | [place] [address] | + + + | Home Phone | | + + + | Preferred Language | Unknown | + + + | Marital Status | | + + + | Advent Affiliation | LDS | + + + [...] Team Providers + +------+ + | Care Head Of Conservation Name | Role | Phone | + [...] Rd | | | | | | [place], [place] | | | | | | [address] | | | +--------+ + + + [...]
--- OUTSIDE RECORDS SUMMARY | ~2019-05-25 | XMS | Encounter Summary ---
Demographics + + + | Address | [address] | | | [place] [address] | + + + | Home Phone [...] Team Providers + +------+ + | Care Plate Washer Name | Role | Phone | + +------+ + | Ashwini Ochoa NP | PCP | | + +------+ + Encounter Details +--------+ + + + + | Date | Type | Department | Care Team | Description | +--------+ + + + + | 10/18/ | Country Printer | Neurosurgery at | Tali Jackson, | Neoplasm of brain | | 2014 | | [facility] [address] | PA-C [address] | (HCC) (Primary Dx) | | | | Ave Mailcode: CH8N | Ave [place], [place] | | | | | [facility] | [address] | | | | | and Healing, | [phone] | | | | | [facility] | | | | | | Floor [facility] [place] | | | | | | [address] | | | | | | [phone] | | | +--------+ + + + [...]
--- OUTSIDE RECORDS SUMMARY | ~2019-05-25 | XMS | Encounter Summary ---
Demographics + + + | Address | [address] | | | [place] [address] | + + + | Home Phone [...] Providers + +------+ + | Care Crab Steamer Name | Role | Phone | + [...] | | | Procedures | Veterans | [facility] | | | | | CONSULT TO | Hospital | Rd Mailcode: | | | | | [facility] | Road | [facility] | | | | | GENETICS | [place], [place] | [place], [place] | | | | | | [address] | [address] | | | | | | Phone: | Phone: | | | | | | [phone] | [phone] | | | | | | Fax: | Fax: | | | | | | [phone] | [phone] | +--------+--------+ + + + + Diagnostic [...] | | | | | VENOUS | [place], [place] | [address] | | | | | [address] | [address] | Physician's | | | | | EXTREMITY | Phone: | Pavilion | | | | | BILAT COMP | [phone] | [place], [place] | | | | | | Fax: | [address] | | | | | | [phone] | Phone: | | | | | | | [phone] | | | | | | | Fax: | | | | | | | [phone] | +--------+--------+ + + + + Reason [...] edema | | 2015 | Visit | [facility] [address] | [address] | (Primary Dx) | | | | Ave Mailcode: CH8N | [place], [place] | | | | | [facility] | [address] | | | | | and Healing, | [phone] | | | | | [facility] | | | | | | Floor [place], [place] | | | | | | [address] | | | | | | [phone] | | | +--------+---------+ + + + [...] every six hours. Take 1 tablet by [facility] every 8 hours for 2 days. [...] 2) Contact our office or present to [facility] Emergency Department for severe headache not [...] | | + +---------+ + + | [facility] DEPARTMENT OF | | | | | RADIOLOGY | | | | + +---------+ + + documented in this encounter Visit Diagnoses + + | Diagnosis | + + | Bilateral leg edema - Primary Edema | + + documented in this encounter
--- OUTSIDE RECORDS SUMMARY | ~2019-05-25 | XMS | Encounter Summary ---
Demographics + + + | Address | [address] | | | [place] [address] | + + + | Home Phone | | + + + | Preferred Language | Unknown | + + + | Marital Status | | + + + | Restoration Affiliation | LDS | + + + [...] Team Providers + +------+ + | Care Double Cut Sawyer Name | Role | Phone | + +------+ + | Ashwini Ochoa NP | PCP | | + +------+ + Encounter Details +--------+ + + + + | Date | Type | Department | Care Team | Description | +--------+ + + + + | 03/06/ | Document-Sc | Health Information | Unknown . | | | 2013 | anned | Services [address] | | | | | | [address] | | | | | | Mailcode: OP17A | | | | | | [facility] | | | | | | [place], [place] | | | | | | [address] | | | | | | [phone] | | | +--------+ + + + [...]
--- OUTSIDE RECORDS SUMMARY | ~2019-05-25 | XMS | Encounter Summary ---
Demographics + + + | Address | [address] | | | [place] [address] | + + + | Home Phone | | + + + | Preferred Language | Unknown | + + + | Marital Status | | + + + | Jehovah'S Witness Affiliation | LDS | + + + [...] Team Providers + +------+ + | Care Reproduction Technician Name | Role | Phone | [...] | | | 2015 | Event | [facility] | MD [address] | | | | | Admitting Desk | [address] | | | | | Located on the | [place], [place] | | | | | [facility] [address] | [address] | | | | | [address] | [phone] | | | | | [place], [place] | | | | | | [address] | | | +--------+ + + + [...] by | | D - | No; Amadro; 16FR (inserted in [place] | Wendy Iniguez [...]
--- OUTSIDE RECORDS SUMMARY | ~2019-05-25 | XMS | Encounter Summary ---
Demographics + + + | Address | [address] | | | [place] [address] | + + + | Home Phone [...] Team Providers + +------+ + | Care Tissue Recovery Technician Name | Role | Phone | [...] Refill | | 2014 | | [facility] [address] | [address] | | | | | Y[address] Mailcode: CH8N | [place], [place] | | | | | [facility] | [address] | | | | | and [address], | [phone] | | | | | [place] [address] | | | | | | [place], [place] | | | | | | [address] | | | | | | [phone] | | | +--------+ + + + [...]
--- OUTSIDE RECORDS SUMMARY | ~2019-05-25 | XMS | Encounter Summary ---
Demographics + + + | Address | [address] | | | [place] [address] | + + + | Home Phone | | + + + | Preferred Language | Unknown | + + + | Marital Status | | + + + | Orthodox Affiliation | LDS | + + + | Race | White | + + + | Ethnic Group | Not or | + + + Author + + + | Author | [facility] | + + + | Organization | [facility] | + + + | Address [...] Team Providers + +------+ + | Care Baller Tender Name | Role | Phone | + +------+ + | Marixa Weber MD | PCP | | + +------+ + Encounter Details +--------+ + + + + | Date | Type | Department | Care Team | Description | +--------+ + + + + | 08/28/ | Document-Sc | UNKNOWN DEPARTMENT | Other, Faculty | | | 2014 | anned | [address] [facility] | [phone] | | | | | [address] | | | | | | [place], [place] | | | | | | [address] | | | +--------+ + + + [...]
--- OUTSIDE RECORDS SUMMARY | ~2019-05-25 | XMS | Encounter Summary ---
Demographics + + + | Address | [address] | | | [place] [address] | + + + | Home Phone [...] Team Providers + +------+ + | Care X Ray Control Equipment Repairer Name | Role | Phone | [...] | | | | | VENOUS | [place], [place] | [address] | | | | | [address] | [address] | Physician's | | | | | EXTREMITY | Phone: | Pavilion | | | | | BILAT COMP | [phone] | [facility] [place] | | | | | | Fax: | [address] | | | | | | [phone] | Phone: | | | | | | | [phone] | | | | | | | Fax: | | | | | | | [phone] | +--------+--------+ + + + + Reason [...] | | | | | VENOUS | [place], [place] | [address] | | | | | [address] | [address] | Physician's | | | | | EXTREMITY | Phone: | Pavilion | | | | | BILAT COMP | [phone] | [place], [place] | | | | | | Fax: | [address] | | | | | | [phone] | Phone: | | | | | | | [phone] | | | | | | | Fax: | | | | | | | [phone] | +--------+--------+ + + + + Encounter [...] | | | | | | Pavilion [place], | | | | | | [place] [address] | | | | | | [phone] | | | +--------+ + + + [...] 14 | | | | bedtime. 2 [id number] | | | | | | | [...] | | + +---------+ + + | [facility] DEPARTMENT OF | | | | | RADIOLOGY | | | | + +---------+ + + documented in this encounter Visit Diagnoses + + | Diagnosis | + + | Bilateral leg edema Edema | + + documented in this encounter"
--- OUTSIDE RECORDS SUMMARY | ~2019-05-25 | XMS | Encounter Summary ---
Demographics + + + | Address | [address] | | | [place] [address] | + + + | Home Phone | | + + + | Preferred Language | Unknown | + + + | Marital Status | | + + + | Hinduism Affiliation | LDS | + + + | Race | White | + + + | Ethnic Group | Not or | + + + Author + + + | Author | [facility] | + + + | Organization | [facility] | + + + | Address [...] Team Providers + +------+ + | Care Vessel Manager Name | Role | Phone | [...] Rd | | | | | | [place], [place] | | | | | | [address] | | | +--------+ + + + [...]
--- OUTSIDE RECORDS SUMMARY | ~2019-05-25 | XMS | Encounter Summary ---
Demographics + + + | Address | [address] | | | [place] [address] | + + + | Home Phone | | + + + | Preferred Language | Unknown | + + + | Marital Status | | + + + | Protestant Affiliation | LDS | + + + [...] Providers + +------+ + | Care Rn Acute Care Name | Role | Phone | + +------+ + | Ashwini Ochoa NP | PCP | | + +------+ + Encounter Details +--------+ + + + + | Date | Type | Department | Care Team | Description | +--------+ + + + + | 11/10/ | Telephone | Neurosurgery at | [place], | | | 2014 | | [facility] [address] | [address] | | | | | [address] Mailcode: CH8N | [facility] | | | | | [facility] | [place], [place] | | | | | and [place], | [address] | | | | | [facility] | [phone] | | | | | Floor [place], [place] | | | | | | [address] | | | | | | [phone] | | | +--------+ + + + [...]
--- OUTSIDE RECORDS SUMMARY | ~2019-05-25 | XMS | Encounter Summary ---
Demographics + + + | Address | [address] | | | [place] [address] | + + + | Home Phone [...] Team Providers + +------+ + | Care Specialty Manufacturing Supervisor Name | Role | Phone | [...] MRI Results | | 2017 | | [facility] [address] | [address] | | | | | Ave Mailcode: CH8N | [place], [place] | | | | | [facility] | [address] | | | | | and [address], | [phone] | | | | | [facility] | | | | | | [place], [place] | | | | | | [address] | | | | | | [phone] | | | +--------+ + + + [...]
--- OUTSIDE RECORDS SUMMARY | ~2019-05-25 | XMS | Encounter Summary ---
Demographics + + + | Address | [address] | | | [place] [address] | + + + | Home Phone | | + + + | Preferred Language | Unknown | + + + | Marital Status | | + + + | Scientologist Affiliation | LDS | + + + [...] Team Providers + +------+ + | Care New Grad Rn Name | Role | Phone | + +------+ + | Ashwini Ochoa NP | PCP | | + +------+ + Reason for Visit + + + | Reason | Comments | + + + | Pre-op evaluation | | + + + Encounter Details +--------+ + + + + | Date | Type | Department | Care Team | Description | +--------+ + + + + | 10/16/ | Telephone-S | Preoperative | | Pre-op evaluation | | 2015 | cheduled | Medicine Clinic at | | | | | | [facility] 4th Floor | | | | | | Stay [address] [facility] | | | | | | [address] | | | | | | Mailcode: [id number] | | | | | | Colleen Mobley | | | | | | [address] [place], [place] | | | | | | [address] | | | | | | [phone] | | | +--------+ + + + [...] | Meds | +------+ + + + No medications | on file. | + + + + + | No agents on file. | + + + + | No [...] 0903; | 10/24/14 1304 by | 10/25/14 0903 by | | D - | No; [...] - | Left; Chest; Subclavian | [place]o | Erna Wade RN | | Cent[facility] [...] + + documented as of this encounter Patient Instructions Patient Instructions Mine Rios RN - 10/16/2014 10:48 AM PDTFormatting of this note m ight be different from the original. PREOPERATIVE INSTRUCTIONS Do not eat or drink anything after midnight the night before surgery. TAKE the following medications with a sip of water on the morning of surgery: ALBUTEROL SULFATE HFA 90 MCG/ACTUATION AEROSOL INHALER Inhale every four hours as needed.BR ING WITH DOS CELECOXIB 200 MG CAPSULE Take 200 mg by mouth once daily in the morning. DULOXETINE 60 MG CAPSULE,DELAYED RELEASE 60 mg once daily in the morning. BUPROPION HCL XL 300 MG 24 HR TABLET, EXTENDED RELEASE 300 mg once daily in the morning. LORAZEPAM 1 MG TABLET Take 1 mg by mouth every six hours as needed (as needed & @ HS). OMEPRAZOLE MAGNESIUM 20 MG TABLET,DELAYED RELEASE Take 20 mg by mouth once daily in the [facility]. TRAMADOL 50 MG TABLET Take 50 mg by mouth every six hours as needed. TOPIRAMATE 25 MG TABLET 50 mg two times daily. 2 tabs=50 mg BID HYDROMORPHONE 2 MG TABLET Take 2 mg by mouth every six hours as needed. Do NOT take the following medications on the morning of surgery: ACETAMINOPHEN 500 MG CAPSULE Take 500 mg by mouth every six hours as needed. PAMPRIN MULTI-SYMPTOM ORAL Take by mouth as needed. VITAMIN C ORAL Take by mouth once daily in the morning. VIACTIV ORAL Take by mouth three times daily. ERGOCALCIFEROL (VITAMIN D2) 50,000 UNIT CAPSULE Take 50,000 Units by mouth once a week. GABAPENTIN 300 MG CAPSULE 900 mg once daily at bedtime. LANSOPRAZOLE 30 MG CAPSULE,DELAYED RELEASE Take by mouth once daily at bedtime. LITHIUM CARBONATE 300 MG CAPSULE Take 600 mg by mouth once daily at bedtime. 2 atgg=278 mg CHILDREN'S MULTI-VIT GUMMIES ORAL Take by mouth once daily in the morning. SILVER SULFADIAZINE 1 % TOPICAL CREAM Apply to affected area once daily in the morning. ZIPRASIDONE 80 MG CAPSULE Take 160 mg by mouth once daily at bedtime. Unless Otherwise Directed by your Surgeon Do not take any Aspirin, vitamin E or non-ster oidal anti-inflammatory (NSAIDs i.e. Advil, Aleve, Ibuprofen) or herbal supplements seven da ys prior to your surgery. These drugs may interfere with normal blood clotting and may cause excessive bleeding and bruising during or after the surgery. If you are taking Coumadin (warfarin), Plavix or any other blood thinners please let you r surgical team know as medication changes will be necessary. If you need a pain medication for general purposes, use Tylenol as directed. If you are in doubt about any medications that you are taking, please contact our office . Important Guidelines Do not shave the surgical area Do not smoke, drink alcohol or use recreational drugs for 24 hours before your surgery Do not eat any hard candy or chew gum after midnight the night before your surgery. Watch for any change in your health condition. Let your surgeon know right away if you do not feel well. Do not wear makeup, perfume, lotions or powder. Remove any nail jamaican from at least one fingernail. Do not wear any jewelry to the hospital. Wear loose, comfortable clothing. Bring the case and solution for your contact lenses or wear your glasses. Leave all your valuables at home. Allow enough travel time so you re not late for your check in for surgery. Take a bath or shower and remember to shampoo your hair using your usual hair product be fore your arrival at the hospital. Please remember to brush your teeth the night before and the morning of your procedure. Surgery Check in Locations Admitting [facility] Surgery Check in Time: Someone from your surgeon's office or [facility] will provide you with information regarding your check in time. If you have any questions about this, pl ease contact your surgeon's office. Going Home Your surgical team will decide when you are medically ready to go home. If you are released to go home on the same day as your procedure/surgery please note the following: You will not be able to drive. You will be required to have a competent adult drive you or accompany you by taxi or pub lic transportation on the day of discharge. It is also required that you have a competent adult assist you and look after you on the first night after you have undergone regional blocks (72 hours for patients going home with regional block pump), deep sedation, and/or general anesthesia. If you stayed in the hospital after surgery, please arrange for your ride to come for yo u around 9AM on the day your doctor says you can go home. Check out time is 11AM. If you have questions or concerns after you go home, call your doctor s office. If it is after office hours, call the [facility] disintegrator operator at [phone] and ask them to page your doc tor. documented in this encounter Plan of Treatment Not on filedocumented as of this encounter Visit Diagnoses Not on filedocumented in this encounter"
--- OUTSIDE RECORDS SUMMARY | ~2019-05-25 | XMS | Encounter Summary ---
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 will be scanned into the stem using [...]
--- OUTSIDE RECORDS SUMMARY | ~2019-05-25 | XMS | Encounter Summary ---
Demographics + + + | Address | [address] | | | [place] [address] | + + + | Home Phone [...] Providers + +------+ + | Care Client Relation Specialist Name | Role | Phone | + +------+ + | Ashwini Ochoa NP | PCP | | + +------+ + Encounter Details +--------+ + + + + | Date | Type | Department | Care Team | Description | +--------+ + + + + | 06/07/ | Document-Sc | Health Information | Unknown . | | | 2013 | anned | Services 1920 | | | | | | Bill [address]yson Misha | | | | | | Mailcode: [id number] | | | | | | [facility] | | | | | | [place], [place] | | | | | | [address] | | | | | | [phone] | | | +--------+ + + + [...]
--- OUTSIDE RECORDS SUMMARY | ~2019-05-25 | XMS | Encounter Summary ---
Demographics + + + | Address | [address] | | | [place] [address] | + + + | Home Phone [...] Team Providers + +------+ + | Care Billiard Player Name | Role | Phone | + [...] | | | [address] | [place], [place] | | | | | [place] | [address] | | | | | [address] | [phone] | | | | | | | [...]
--- OUTSIDE RECORDS SUMMARY | ~2019-05-25 | XMS | Encounter Summary ---
Demographics + + + | Address | [address] | | | [place] [address] | + + + | Home Phone [...] + + + | Author | [facility] | + + + | Organization | [facility] | + + [...] Providers + +------+ + | Care Loan And Credit Manager Name | Role | Phone | [...] + + | 10/24/ | Hospital | [facility] [address] | Bart Graham MD | | | 2014 - | Encounter | [facility] | [address] [facility] | | | | | [id number]ESSA | [place], [place] | | | 10/28/ | | [place], | [address] | | | 2014 | | [place] [address] | [phone] | | | | | [phone] | | | +--------+ + + + [...] at 9:30am. We are located at the [facility], [address] [place] [address]. Address: [address] [place] [address]. Please call [phone] for questions o r concerns. 2. Follow up with your PCP to review your hospital course and medication changes. Please call to schedule this appointment. Future Appointments Date & Time Provider Department Dept Phone Center 11/09/2014 9:30 AM Bart Graham Neurosurgery at [facility] [phone] Neurosurgery Discharging Physician: JAIME HOWARD MD Attending [...] 14 | | | | bedtime. 2 [id number] | | | | | | | [...] issues Jaime Howard MD Neurosurgery Resident Pager #[phone] MEDICATIONS Current Facility-Administered Medications Medication acetaminophen (TYLENOL) [...] 7NSICU ATTENDING NEUROINTENSIVIST PROGRESS NOTE Team Pager: [phone] Attendin -------- EVENING NOTE -------- Date:10/25/2014 Critical [...] s/s of infection # Bipolar: Restart Wellbutrin, [place], Duloxetine, Ziprasidone, and lorazepam (prn) # Lines: CVL (subclavian), matos, PIV - d/c matos Relevant Risks: This patient is currently at risk for the following: cerebral edema, hydroc ephalus, intracerebral hemorrhage and seizure; central line associated blood stream infectio n, DVT/Pulmonary embolism, ICU delirium and UTI. I spent 30 minutes actively involved in the care and management of this patient. Sachin Ward MD [facility] DEPARTMENT: [id number] ICU NEURO Place of Service:- Inpatient Date of Service: 10/25/2014 CSN: [id number] Suggested Modifier: None Suggested CPT: TO AUTISTIC TEACHER RELEVANT DATA: Last Vitals: BP 112/66 | [...] charting, and discussion with treatment decision maker. [facility] DEPARTMENT: [id number] CRITICAL CARE Place of Service: Inpatient Date of Service: 10/25/2014 CSN: [id number] Suggested Level of Care: 90747 - CRITICAL CARE, 1ST HOUR EACH DAY [...] -dexamethasone 4mg q6--slow taper ordered. -medication SALES OPERATIONS ASSISTANT: Geodon 160mg qHS, tramadol 50mg q6hr prn [...] for [place] - Diet: Regular diet - [facility] bowel protocol - MIVF: Normal saline [...] ove assessment and plan. TORITO GONG, VALENTINA [facility] DEPARTMENT: [id number] ICU NEURO Place of Service:- Inpatient Date of Service: 10/25/2014 CSN: [id number] Suggested Modifier: None Suggested CPT: TO AUTISTIC TEACHER Kareen Martinez MD - 2014 6:49 PM [...] - 2014 6:19 PM PDT 7NSICU ATTENDING FISH FLIPPER DAILY PROGRESS NOTE Team Pager: [phone] Attendin Date:2014 Critical Care Attending Physician: SACHIN [...] the primary team and the consultants [facility] ed. (Relevant data is listed at the bottom of this note). CC / Hx / Last 24hr: s/p 1) Suboccipital craniectomy and C1 laminectomy 2) Resection of fo urth ventricular mass; Tium mesh cranioplasty Patient Active Problem List Diagnosis Neoplasm of brain PMH: Bipolar, anxiety, headaches , GERD, asthma Home meds: Ziprasidone, Tramadol, Topiramate, Lorazepam, [place], Lansoprazole, Dilaudid, Celecoxib, g abapentin, duloxetine, bupropion, [...] opioids: continue gabapentin # Bipolar: Restart Wellbutrin, [place], Duloxetine, Ziprasidone, and lorazepam (prn) # Lines: arterial line, CVL (subclavian), matos, PIV Relevant Risks: This patient is currently at risk for the following: cerebral edema, hy drocephalus, intracerebral hemorrhage and seizure; central line associated blood stream infe ction, DVT/Pulmonary embolism, ICU delirium and UTI. I spent 65 minutes actively involved in the care and management of this patient. Sachin Ward MD [facility] DEPARTMENT: [id number] ICU NEURO Place of Service:- Inpatient Date of Service: erEDICAL RECORD NUMBER [id number] CSN: [id number] Suggested Modifier: None Suggested CPT: TO AUTISTIC TEACHER RELEVANT DATA: Last Vitals: BP 139/80 | [...] | 60 - 99 mg/dL | [facility] - | | | GLUCOSE, | [...] PROSPER | [address] | [place], [place] | | | LESLIE POINT OF CARE | [address] | [address] | | | TESTS | | | [...] PROSPER | [address] | [place], [place] | | | MALINA NEL[place] OF BEL | [address] | [address] | | | TESTS | | | [...] | + + + + + | [facility] | [address] | [place] [address] | | | SERVICES, CORE | PARK [...] | | | LABORATORY | | | [place] | | | SERVICES, | | | [...] MDRD equation recommended by the | [facility] | | National Kidney Disease Education [...] + + + + + | [facility] | [address] | [place] [address] | | | CHI, GABRIELLE | KAYLEN [...] SALLYAM | [address] | [place], [place] | | | LESLIE POINT OF CARE | [address] | [address] | | | TESTS | | | [...] CHENG | [address] | [place], [place] | | | [place] | [address] | [address] | | | TESTS | | | [...] MARQUAM | [address] | [place], [place] | | | L[place]IE POINT OF CARE | [address] | [address] | | | TESTS | | | [...] | + + + + + | [facility] | [address] | [place] [address] | | | SERVICES, CORE | KAYLEN [...] | | | LABORATORY | | | [place] | | | SERVICES, | | | [...] MDRD equation recommended by the | [facility] | | National Kidney Disease Education [...] | + + + + + | [facility] | [address] | [place] [address] | | | SERVICES, GABRIELLE | KAYLEN [...] | 60 - 99 mg/dL | [facility] - | | | GLUCOSE, | [...] CHENG | [address] | [place], [place] | | | L[place]IE POINT OF CARE | [address] | [address] | | | TESTS | | | [...] PROSPER | [address] | [place], [place] | | | MALINA NELSON OF CARE | [address] | [address] | | | TESTS | | | [...] PROSPER | [address] | [place], [place] | | | MALINA [facility]EL[facility] OF CARE | [facility] | [address] | | | TESTS | | | [...] | 60 - 99 mg/dL | [facility] - | | | GLUCOSE, | [...] CHENG | [address] | [place], [place] | | | L[place]IE POINT OF CARE | [address] | [address] | | | TESTS | | | | + + + + + OPERATION RECORD (10/26/2014 9:22 AM PDT) + + | Transcriptions | + + | Bart Graham MD - 2014 10:30 PM PDT Date of Service: 2014 Attending | | Surgeon: Bart Graham MD Pipe Processor(s): Brady Conroy MD, | | PhD. Preoperative [...] and she was placed in the Bhagat wet process miller head assistant and flipped into | | the prone position on chest rolls. Her arms were tucked at her sides and all pressure | | points were carefully padded. We then registered the [employer] frameless stereotactic | | navigation system with [...] curette with Kerrison punches. We used a [place] dissector to | | carefully dissect the [...] the subarachnoid space. We then used a [place] | | elevator and opened the dura [...] were removed. She was removed from the [place] wet process miller head assistant | | and flipped into the supine [...] 2014 | | 18:04:22DT: 2014 22:30:30Job #: [id number] | + + CAPILLARY BLOOD GLUCOSE (NO [...] SALLYAM | [address] | [place], [place] | | | MALINA [place] OF BEL | [facility] | [address] | | | TESTS | | | [...] | 60 - 99 mg/dL | [facility] - | | | GLUCOSE, | [...] CHENG | [address] | [place], [place] | | | L[place]IE POINT OF CARE | [address] | [address] | | | TESTS | | | [...] [facility] | [address] | [place] [address] | | | SERVICES, CORE | PARK [...] | | | LABORATORY | | | [place]RA[place] | | | SERVICES, | | | [...] | + + + + + | [facility] | [address] | [place] [address] | | | SERVICES, CORE | KAYLEN [...] MARQUAM | [address] | [place], [place] | | | LESLIE POINT OF CARE | [address] | [address] | | | TESTS | | | [...] - MARQUAM | [address] | [place], [place] | | | LESLIE POINT OF CARE | [address] | [address] | | | TESTS | | | [...] + + + | MYRIAM CHENG | [address] | [place], [place] | | | MALINA [place] OF [place] | [address] | [address] | | | TESTS | | | [...] MARQUAM | [address] | [place], [place] | | | LESLIE POINT OF CARE | [address] | [address] | | | TESTS | | | [...] | + + + + + | [facility] | [address] | [place] [address] | | | SERVICES, SPECIAL | KAYLEN [...] | + + + + + | [facility] | [address] | [place] [address] | | | SERVICES, CORE | KAYLEN [...] | | | LABORATORY | | | [place] | | | SERVICES, | | | [...] MDRD equation recommended by the | [facility] | | National Kidney Disease Education [...] + + + + + | [facility] | [address] | [place] [address] | | | SERVICES, CORE | PARK [...] | | | | | | contrast. [id number] | | | | | | reformatted [...] | + +---------+ + + | [facility] DEPARTMENT OF | | | | | RADIOLOGY | | | | + +---------+ + + X-RAY PORTABLE CHEST 1 VIEW (2014 6:53 PM PDT) + + + + + + | Component | Value | Ref Range | Performed | Pathologist | | | | | At | Signature | + + + + + + | X-RAY | EXAM: NE CHEST 1 VIEW | | | | [...] [facility] | [address] | [place] [address] | | | SERVICES, CORE | PARK [...] | | | LABORATORY | | | [place] | | | SERVICES, | | | [...] | + + + + + | [facility] | [address] [facility] | [place] [address] | | | GABRIELLE MIRELES | KAYLEN [...] | + + + + + | [facility] | [address] | [place] [address] | | | SERVICES, CORE | KAYLEN [...] + + + + + | [facility] | [address] | [place] [address] | | | SERVICESGABRIELLE | [address] [...] | + + + + + | [facility] | [address] | [place] [address] | | | SERVICES, CORE | PARK [...] PROSPER | [address] | [place], [place] | | | MALINA [place] OF [place] | [address] | [address] | | | TESTS | | | [...] PROSPER | [address] | [place], [place] | | | MALINA [place] OF BEL | [facility] | [address] | | | TESTS | | | [...] PROSPER | [address] | [place], [place] | | | MALINA NELSON OF [facility] | [address] | [address] | | | TESTS | | | [...] CHENG | [address] | [place], [place] | | | MALINA [place] OF BEL | [facility] | [address] | | | TESTS | | | [...] [facility] | [address] | [place], [place] | | | MALINA NELSON OF CARE | [facility] | [address] | | | TESTS | | | [...] MARQUAM | [address] | [place], [place] | | | MALINA NELSON OF [facility] | [address] | [address] | | | TESTS | | | [...] PROSPER | [address] | [place], [place] | | | MALINA NELSON OF [facility] | [address] | [address] | | | TESTS | | | [...] + + + | MYRIAM CHENG | [address] | [place], [place] | | | MALINA NELSON OF [facility] | [address] | [address] | | | TESTS | | | [...] mass | | | | | | [id number] x 12 mm in | | | [...] [facility] | [address] | [place] [address] | | | SERVICES, | [address] [...] | + + + + + | [facility] | [address] [facility] | [place] [address] | | | SERVICES, | [address] | | | | TRANSFUSION MEDICINE | | | | + + + + + INTRAOPERATIVE NEURO MONITORING (2014) + + + | Narrative | Performed At | + + + | Patient Name: Mendoza Villegas Date of : 1970 Medical | | | Record Number: [id number] Date of Test: 2014 Place of | | | Service: IP Intra Op (55) [id number] - [id number] INTRAOPERATIVE NEURO | | | MONITORING History: [...] of | | | Neurology Suggested CPT: 10716 - IOM Remote x 3 hr(s) 85794 - | | | Short Latency EP's Upper AND Lower extremities 59703 - Central Motor | | | EP's Upper AND Lower extremities 07642 - EMG Cranial Bilateral - IOM | | | 88508 - Neuromuscular Junction Test Suggested Diagnosis: 237.5 [...] | + + + + + | [facility] | [address] | [place] [address] | | | PATHOLOGY | [address] [...] | | | | | NEEDED, Starting [facility] 10/25/14 at | | | | | | | 1344, Until [place] 10/28/14 at 1929, | | | | [...] | | | | | NEEDED, Starting [facility] 10/25/14 | | PM PDT [...]
--- OUTSIDE RECORDS SUMMARY | ~2019-05-25 | XMS | Encounter Summary ---
Demographics + + + | Address | [address] | | | [place] [address] | + + + | Home Phone [...] Team Providers + +------+ + | Care Concrete Craftsman Name | Role | Phone | + [...] | FRAMELESS | | 2015 | | 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 | | | | [address] | | FS, ??? audelia), see | [...] a history of 4th ventricular mass, admitted [facility] on 2014 for the procedures [...] at 9:30am. We are located at the [facility], [address] [place] [address]. Address: [address] [place] [address]. Please call [phone] for questions o r concerns. 2. Follow up with your PCP to review your hospital course and medication changes. Please call to schedule this appointment. Future Appointments Date & Time Provider Department Dept Phone Center 11/09/2014 9:30 AM Bart Graham Neurosurgery at [facility] [phone] Neurosurgery Discharging Physician: JAIME HOWARD MD Attending Physician: Bart Grhaam MD documented in this enco unter Medications [...] 14 | | | | bedtime. 2 oice=197 | | | | | | | [...] to home tomorrow if no new issues Jaiem Howard MD Neurosurgery Resident Pager #[phone] MEDICATIONS Current Facility-Administered Medications Medication acetaminophen (TYLENOL) [...] 7NSICU ATTENDING NEUROINTENSIVIST PROGRESS NOTE Team Pager: [phone] Attendin -------- EVENING NOTE -------- Date:10/25/2014 Critical [...] s/s of infection # Bipolar: Restart Wellbutrin, [place], Duloxetine, Ziprasidone, and lorazepam (prn) # Lines: CVL (subclavian), mtaos, PIV - d/c matos Relevant Risks: This patient is currently at risk for the following: cerebral edema, hydroc ephalus, intracerebral hemorrhage and seizure; central line associated blood stream infectio n, DVT/Pulmonary embolism, ICU delirium and UTI. I spent 30 minutes actively involved in the care and management of this patient. Sachin Ward MD [facility] DEPARTMENT: [id number] ICU NEURO Place of Service:- Inpatient Date of Service: 10/25/2014 CSN: [id number] Suggested Modifier: None Suggested CPT: TO PRODUCTION ROUSTABOUT RELEVANT DATA: Last Vitals: BP 112/66 | [...] charting, and discussion with treatment decision maker. [facility] DEPARTMENT: [id number] CRITICAL CARE Place of Service: Inpatient Date of Service: 10/25/2014 CSN: [id number] Suggested Level of Care: 24330 - CRITICAL CARE, 1ST HOUR EACH DAY [...] Attending: Becca Alegria MD NSGY att: Dr. Grhaam ICU#1. POD#1. HPI: Mendoza Villegas is a [...] MRI -dexamethasone 4mg q6--slow taper ordered. -medication LEGAL COLLECTOR: Geodon 160mg qHS, tramadol 50mg q6hr prn [...] for [place] - Diet: Regular diet - [facility] bowel protocol - MIVF: Normal saline [...] ove assessment and plan. TORITO GONG, VALENTINA [facility] DEPARTMENT: [id number] ICU NEURO Place of Service:- Inpatient Date of Service: 10/25/2014 CSN: [id number] Suggested Modifier: None Suggested CPT: TO PRODUCTION ROUSTABOUT Kareen Martinez MD - 2014 6:49 PM [...] - 2014 6:19 PM PDT 7NSICU ATTENDING MANAGER RN CASE DAILY PROGRESS NOTE Team Pager: [phone] Attendin Date:2014 Critical Care Attending Physician: SACHIN [...] asthma Home meds: Ziprasidone, Tramadol, Topiramate, Lorazepam, [place], Lansoprazole, Dilaudid, Celecoxib, g abapentin, duloxetine, bupropion, [...] opioids: continue gabapentin # Bipolar: Restart Wellbutrin, [place], Duloxetine, Ziprasidone, and lorazepam (prn) # Lines: arterial line, CVL (subclavian), matos, PIV Relevant Risks: This patient is currently at risk for the following: cerebral edema, hy drocephalus, intracerebral hemorrhage and seizure; central line associated blood stream infe ction, DVT/Pulmonary embolism, ICU delirium and UTI. I spent 65 minutes actively involved in the care and management of this patient. Sachin Ward MD [facility] DEPARTMENT: [id number] ICU NEURO Place of Service:- Inpatient Date of Service: erEDICAL RECORD NUMBER [id number] CSN: [id number] Suggested Modifier: None Suggested CPT: TO PRODUCTION ROUSTABOUT RELEVANT DATA: Last Vitals: BP 139/80 | [...] CHENG | [address] | [place], [place] | | | MALINA NELSON OF CARE | [address] | [address] | | | TESTS | | | [...] SALLYAM | [address] | [place], [place] | | | LESLIE POINT OF CARE | [address] | [address] | | | TESTS | | | [...] | + + + + + | [facility] | [address] | [place] [address] | | | SERVICES, CORE | KAYLEN [...] | | | LABORATORY | | | GIBRALTARIAN | | | SERVICES, | | | [...] the MDRD equation recommended by the | [facility] | | National Kidney [...] | + + + + + | [facility] | [address] | [place] [address] | | | GABRIELLE MIRELES | KAYLEN [...] (H) | 60 - 99 mg/dL | [facility] - | | | [...] SHELLEYQUAM | [address] | [place], [place] | | | LESLIE POINT OF CARE | [address] | [address] | | | TESTS | | | [...] CHENG | [address] | [place], [place] | | | MALINA NELSON OF BEL | [facility] | [address] | | | TESTS | | | [...] - MARQUAM | [address] | [place], [place] | | | LESLIE POINT OF CARE | [facility] | [address] | | | TESTS | | | [...] | + + + + + | [facility] | [address] | [place] [address] | | | CHI, CORE | KAYLEN [...] | | | LABORATORY | | | GIBRALTARIAN | | | SERVICES, | | | [...] | + + + + + | [facility] | [address] | [place] [address] | | | SERVICES, CORE | KAYLEN [...] (H) | 60 - 99 mg/dL | [facility] - | | | [...] CHENG | [address] | [place], [place] | | | MALINA NELSON OF BEL | [address] | [address] | | | TESTS | | | [...] MARQUAM | [address] | [place], [place] | | | MALINA NELSON OF CARE | [address] | [address] | | | TESTS | | | [...] MARQUAM | [address] | [place], [place] | | | MALINA NELSON OF CARE | [address] | [address] | | | TESTS | | | [...] CHENG | [address] | [place], [place] | | | MALINA NELSON OF BEL | [address] | [address] | | | TESTS | | | | + + + + + OPERATION RECORD (10/26/2014 9:22 AM PDT) + + | Transcriptions | + + | Bart Graham MD - 2014 10:30 PM PDT Date of Service: 2014 Attending | | Surgeon: Bart Graham MD Athletic Scout(s): Brady Conroy MD, | | PhD. Preoperative [...] and she was placed in the Bhagat nailhead puncher and flipped into | | the prone position on chest rolls. Her arms were tucked at her sides and all pressure | | points were carefully padded. We then registered the Tripsharealth frameless stereotactic | | navigation system with [...] curette with Kerrison punches. We used a [place] dissector to | | carefully dissect the [...] the subarachnoid space. We then used a [place] | | elevator and opened the dura [...] were removed. She was removed from the [place] nailhead puncher | | and flipped into the supine [...] 2014 | | 18:04:22DT: 2014 22:30:30Job #: [id number] | + + CAPILLARY BLOOD GLUCOSE (NO [...] MARQUAM | [address] | [place], [place] | | | MALINA NELSON OF CARE | [address] | [address] | | | TESTS | | | [...] CHENG | [address] | [place], [place] | | | MALINA NELSON OF CARE | [address] | [address] | | | TESTS | | | [...] [facility] | [address] | [place] [address] | | | SERVICES, CORE | PARK [...] | | | LABORATORY | | | GIBRALTARIAN | | | SERVICES, | | | [...] | + + + + + | [facility] | [address] [facility] | [place] [address] | | | SERVICES, GABRIELLE | KAYLEN [...] MARQUAM | [address] | [place], [place] | | | MALINA NELSON OF BEL | [facility] | [address] | | | TESTS | | | [...] (H) | 60 - 99 mg/dL | [facility] - | | | [...] MARQUAM | [address] | [place], [place] | | | MALINA NELSON OF [facility] | [address] | [address] | | | TESTS | | | [...] CHENG | [address] | [place], [place] | | | MALINA NELSON OF CARE | [facility] | [address] | | | TESTS | | | [...] - MARQUAM | [address] | [place], [place] | | | LESLIE POINT OF CARE | [address] | [address] | | | TESTS | | | [...] | + + + + + | [facility] | [address] | [place] [address] | | | SERVICES, SPECIAL | PARK [...] | + + + + + | [facility] | [address] | [place] [address] | | | SERVICES, CORE | KAYLEN [...] | | | LABORATORY | | | GIBRALTARIAN | | | SERVICES, | | | [...] the MDRD equation recommended by the | [facility] | | National Kidney Disease Education Program. [...] | + + + + + | [facility] | [address] | [place] [address] | | | CHI, GABRIELLE | KAYLEN [...] | | | | | | contrast. [id number] | | | | | | reformatted [...] + + + | X-RAY | EXAM: RI CHEST 1 VIEW | | | | [...] [facility] | [address] | [place] [address] | | | SERVICES, CORE | PARK [...] | | | LABORATORY | | | GIBRALTARIAN | | | SERVICES, | | | [...] | + + + + + | [facility] | [address] [facility] | [place] [address] | | | GABRIELLE MIRELES | KAYLEN [...] | + + + + + | [facility] | [address] | [place] [address] | | | SERVICES, CORE | KAYLEN [...] [facility] | [address] | [place] [address] | | | SERVICES, GABRIELLE | KAYLEN [...] | + + + + + | [facility] | [address] | [place] [address] | | | SERVICES, CORE | PARK [...] MARLIZAM | [address] | [place], [place] | | | MALINA NELSON OF BEL | [address] | [address] | | | TESTS | | | [...] MARQUAM | [address] | [place], [place] | | | LESLIE POINT OF CARE | [facility] | [address] | | | TESTS | | | [...] + + + | MYRIAM CHENG | [address] | [place], [place] | | | MALINA NELSON OF [facility] | [address] | [address] | | | TESTS | | | [...] MARLIZAM | [address] | [place], [place] | | | MALINA NELSON OF BEL | [address] | [address] | | | TESTS | | | [...] MARLIZAM | [address] | [place], [place] | | | MALINA NELSON OF CARE | [facility] | [address] | | | TESTS | | | [...] CHENG | [address] | [place], [place] | | | MALINA NELSON OF CARE | [address] | [address] | | | TESTS | | | [...] SALLYAM | [address] | [place], [place] | | | MALINA NELSON OF CARE | [address] | [address] | | | TESTS | | | [...] + + + | MYRIAM CHENG | [address] | [place], [place] | | | MALINA NELSON OF [facility] | [address] | [address] | | | TESTS | | | [...] | | + +---------+ + + | [facility] DEPARTMENT OF | | [...] [facility] | [address] | [place] [address] | | | SERVICES, | [address] [...] | + + + + + | [facility] | [address] | [place] [address] | | | SERVICES, | [address] | | | | TRANSFUSION MEDICINE | | | | + + + + + INTRAOPERATIVE NEURO MONITORING (2014) + + + | Narrative | Performed At | + + + | Patient Name: Mendoza Villegas Date of : 1970 Medical | | | Record Number: [id number] Date of Test: 2014 Place of | | | Service: IP Intra Op [phone] [id number] - [id number] INTRAOPERATIVE NEURO | | | MONITORING History: [...] of | | | Neurology Suggested CPT: 48153 - IOM Remote x 3 hr(s) 61007 - | | | Short Latency EP's Upper AND Lower extremities 37428 - Central Motor | | | EP's Upper AND Lower extremities 05858 - EMG Cranial Bilateral - IOM | | | 46330 - Neuromuscular Junction Test Suggested Diagnosis: 237.5 [...] | + + + + + | [facility] | [address] | [place] [address] | | | PATHOLOGY | [address] [...]
--- OUTSIDE RECORDS SUMMARY | ~2019-05-25 | XMS | Encounter Summary ---
Demographics + + + | Address | [address] | | | [place] [address] | + + + | Home Phone [...] Team Providers + +------+ + | Care Excellence Specialist Name | Role | Phone | [...] | | | | | [place] Cab[place], | | | | | | [place] [address] | | | +--------+--------+ + + + [...]
--- OUTSIDE RECORDS SUMMARY | ~2019-05-25 | XMS | Encounter Summary ---
Demographics + + + | Address | [address] | | | [place] [address] | + + + | Home Phone [...] Team Providers + +------+ + | Care Patients Transporter Name | Role | Phone | + [...] Phone Call | | 2017 | | [facility] [address] | [address] [place] | | | | | Yany Mailcode: CH8N | [place], [place] | | | | | [facility] | [address] | | | | | and Clarisse, | [phone] | | | | | [facility] | | | | | | [place], [place] | | | | | | [address] | | | | | | [phone] | | | +--------+ + + + [...]
--- OUTSIDE RECORDS SUMMARY | ~2019-05-25 | XMS | Clinical Summary ---
Demographics + + + | Address | [address] | | | [place] [address] | + + + | Home Phone [...] Team Providers + +------+ + | Care Mechanical Expert Name | Role | Phone | + +------+ + | Marixa Weber MD | PCP | | + +------+ + Source Comments LIZZJUAN is fully live on both Epic[facility] Ambulatory and [employer] InPatient.[facility] Allergies + + + + [...] | e | | | bedtime. 2 oqem=797 | | | 14 | | | [...] 12/29/ | DURS33 | | 3 - [id number]: Qty: | | Head | LIFESCIENCE | | 2017 | 91 / | | 1 on 2014 by Santos | | | S | | | /[id number] | | MD Bart at [facility] | | | | | | 71 | | REV LOC | | | | | | | + +------+-------+ +--------+--------+--------+ | Mesh Contour [id number] | | N/A: | [employer] [place] | | | 04.503 | | Malleable Matrix Neuro - | | Head | | | | .083 / | | [id number]: Qty: 1 on | | | | [...] | | | | .104.0 | | [id number]: Qty: 6 on | | | | [...] | x | 008-Pr | 8 | [address] | | | | STATE | | esent | | [place], | | | | | | | | [place] | | | | | | | | [address] | | + +--------+ +--------+ + +------+ [...] meredith | | | 1 (Home) | [address] | + +--------+ +--------+ + + Advance [...]
--- OUTSIDE RECORDS SUMMARY | ~2019-05-25 | XMS | Encounter Summary ---
Demographics + + + | Address | [address] | | | [place] [address] | + + + | Home Phone [...] Team Providers + +------+ + | Care Insole Toe Snipping Machine Operator Name | Role | Phone [...] Rd | | | | | | [place], [place] | | | | | | [address] | | | +--------+ + + + [...]
--- OUTSIDE RECORDS SUMMARY | ~2019-05-25 | XMS | Encounter Summary ---
Demographics + + + | Address | [address] | | | [place] [address] | + + + | Home Phone [...] Team Providers + +------+ + | Care Orchid Grower Name | Role | Phone | + [...] Board | | 2015 | on | [facility] [address] | ,PhD [address] | Recommendation | | | | Yany Mailcode: CH8N | [facility] | | | | | [facility] | [place], [place] | | | | | and Clarisse, | [address] | | | | | [facility] | [phone] | | | | | [place], [place] | | | | | | [address] | | | | | | [phone] | | | +--------+ + + + [...]
--- OUTSIDE RECORDS SUMMARY | ~2019-05-25 | XMS | Encounter Summary ---
Demographics + + + | Address | [address] | | | [place] [address] | + + + | Home Phone [...] Providers + +------+ + | Care Associate Medical Director Name | Role | Phone | [...] | | | Neoplasm of | MD Brat | | | | | | brain (HCC) | [address] | | | | | | Procedures | Avenue | | | | | | MRI BRAIN | [place], [place] | | | | | | TUMOR | [address] | | | | | | EVALUATION | Phone: | | | | | | WWO CONTRAST | [phone] | | | | | | | Fax: | | | | | | | [phone] | | +--------+--------+ + + + + [...] Radiology Order | | 2016 | | [facility] [address] | [address] | | | | | Yany Mailcode: CH8N | [place], [place] | | | | | [facility] | [address] | | | | | and Healing, | [phone] | | | | | [facility] | | | | | | Floor [place], [place] | | | | | | [address] | | | | | | [phone] | | | +--------+ + + + [...]
--- OUTSIDE RECORDS SUMMARY | ~2019-05-25 | XMS | Encounter Summary ---
Demographics + + + | Address | [address] | | | [place] [address] | + + + | Home Phone | | + + + | Preferred Language | Unknown | + + + | Marital Status | | + + + | Pentecostalism Affiliation | LDS | + + + [...] Team Providers + +------+ + | Care Dredge Mate Name | Role | Phone | + [...] | brain (HCC) | [address] | [facility] | | | | | Procedures | [facility] | Rd | | | | | MRI BRAIN | Rd | Mailcode: | | | | | W CONTRAST - | [place], [place] | [address] | | | | | FRAMELESS | [address] | [place] | | | | | STEREOTATIC | Phone: | Research | | | | | ONLY [place] MRI | [phone] | [place] | | | | | BRAIN | Fax: | [place], [place] | | | | | CONTRAST | [phone] | [address] | | | | | | | Phone: | | | | | | | [phone] | | | | | | | Fax: | | | | | | | [phone] | +--------+--------+ + + + + Reason [...] | | | Ave Mailcode: CH8N | [place], [place] | | | | | [facility] | [address] | | | | | and Healing, | [phone] | | | | | [facility] | | | | | | [place], [place] | | | | | | [address] | | | | | | [phone] | | | +--------+ + + + [...]
--- OUTSIDE RECORDS SUMMARY | ~2019-05-25 | XMS | Clinical Summary ---
Demographics + + + | Address | [address] | | | [place] [address] | + + + | Home Phone [...] + | Author | [facility] | | | and Luis Danielana [...] Team Providers + +------+ + | Care Rough Rice Tender Name | Role | Phone | [...] 0 | | | Activ | | QHRP-Lxclgbco-Isfwet | as needed (pain). | | | [...] +-------+--------+ +--------+-------+---------+------+ | BCBS | BCBS | [id number] | | | | PPO | | [...] meredith | | | 1 (Home) | [address] | + +--------+ +--------+ + + Advance Directives Patient has advance care planning documents on file. For more information, please contact:[facility] [place] [address]"
--- OUTSIDE RECORDS SUMMARY | ~2019-05-25 | XMS | Encounter Summary ---
Demographics + + + | Address | [address] | | | [place] [address] | + + + | Home Phone [...] Team Providers + +------+ + | Care Screen Tender Helper Name | Role | Phone | [...] | | | | Subependymom | [place] [address] | | | | | | a (HCC) | [address] | | | | | | Procedures | [address] | | | | | | MRI BRAIN | [place], [place] | | | | | | TUMOR | [address] | | | | | | EVALUATION | Phone: | | | | | | WWO CONTRAST | [phone] | | | | | | | Fax: | | | | | | | [phone] | | +--------+--------+ + + + + [...] (HCC) | | 2015 | Visit | [facility] [address] | [address] | (Primary Dx) | | | | Ave Mailcode: CH8N | [place], [place] | | | | | [facility] | [address] | | | | | and Healing, | [phone] | | | | | [facility] | | | | | | Floor [place], [place] | | | | | | [address] | | | | | | [phone] | | | +--------+---------+ + + + [...] reports that she is doing well [facility]. She denies headaches currently. She does note [...] every six hours. Take 1 tablet by [facility] every 8 hours for 2 [...] also contact us to fax referral for [facility] in [facility]. 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
--- OUTSIDE RECORDS SUMMARY | ~2019-05-25 | XMS | Encounter Summary ---
Demographics + + + | Address | [address] | | | [place] [address] | + + + | Home Phone [...] Providers + +------+ + | Care Legal Editor Name | Role | Phone | + [...] Rd | | | | | | [place], [place] | | | | | | [address] | | | +--------+ + + + [...]
--- OUTSIDE RECORDS SUMMARY | ~2019-05-25 | XMS | Encounter Summary ---
Demographics + + + | Address | [address] | | | [place] [address] | + + + | Home Phone [...] Team Providers + +------+ + | Care Machine Fur Cleaner Name | Role | Phone | [...] | | | | | Karis Cabral [place], | | | | | | [place] [address] | | | +--------+ + + + [...]
[~2019-05-25 13:58] MED LIST changes: +BUPROPION HCL200 MG PO; +CLONIDINE HCL0.1 MG PO; +DULOXETINE HCL30 MG PO; +LITHIUM CARBON300 MG PO
--- OUTSIDE RECORDS SUMMARY | 2019-05-25 14:02 | XMS ---
PreManage Notification: MAGALIS BLACKMAN Security Tube Rebuilder Events No recent Security Events currently on file CRITERIA MET - [facility] - Has Care Guidelines - PDMP - [facility] - 2 Visits in 30 Days CARE PROVIDERS FAYE DELGADO Internal Medicine 10/18/2018-Alisha DORAN PHONE: [phone] FAYE DELGADO Primary Care Current PHONE: Unknown Nathanael Jackson MD PHONE: Unknown Guidelines Source: [facility] [place] Guidelines Date: 05/22/2019 Care Coordination: Mental health services provided by [facility].\T\nbsp; Please contact [facility] with mental health concerns.\T\nbsp; Nelly/[place]: [phone]\T\ nbsp; [place]: [phone]. Care History Medical/Surgical 10/18/2018 [facility] - Patient is currently established with [facility]. If patient is seen in the ED during business hours. Please contact [facility] at [facility]. Care Recommendation: This patient has had [...] care. E.D. VISIT COUNT (12 MO.) 1 [facility] 5 [facility]. TOTAL 6 NOTE: Visits indicate total known visits. ED/UCC VISIT TRACKING (12 MO.) 05/25/2019 13:59 [facility] [place] TYPE: Emergency COMPLAINT: - HEMOGLOBIN CHECK 05/24/2019 20:31 [facility] [place] TYPE: Emergency COMPLAINT: - ABDOMINAL SWELLING AND BLEEDING 05/21/2019 19:47 [facility] [place] TYPE: Emergency DIAGNOSES: - ABD PAIN 05/20/2019 22:32 [facility] [place] TYPE: Emergency COMPLAINT: - ABD PAIN DIAGNOSES: - Other rat exterminator (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 - Essential (primary) hypertension [...] substances - Sleep apnea, unspecified - Other skilled nursing (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 08/14/2018 22:35 [facility] [place] TYPE: Emergency COMPLAINT: - POST OP PROBLEM/INFECTION DIAGNOSES: - Other rat exterminator (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 - Nicotine dependence, unspecified, [...] visits to display in this time frame [email or web address]
== END 2019-05-25 15:24 | disposition home or self-care (01) ==
LOC: ED 13:58
DX: S30.1XXA Contusion of abdominal wall, initial encounter (principal); I10 Essential (primary) hypertension; F31.9 Bipolar disorder, unspecified; Z87.891 Personal history of nicotine dependence; Z91.040 Latex allergy status; Z88.5 Allergy status to narcotic agent; Z88.6 Allergy status to analgesic agent; Z91.048 Other nonmedicinal substance allergy status; Z79.899 Other long term (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; X58.XXXA Exposure to other specified factors, initial encounter
CPT/HCPCS: 36415; 85014; 85018; 99283

== ENCOUNTER 2019-06-06 20:04 | Emergency (ER) | payer BC ==
[~2019-06-06] VITALS: Ht 152.4 cm; Wt 97.5 kg
--- OUTSIDE RECORDS SUMMARY | ~2019-06-06 | XMS | Encounter Summary ---
Demographics + + + | Address | [address] | | | [place] [address] | + + + | Home Phone | | + + + | Preferred Language | Unknown | + + + | Marital Status | | + + + | Anabaptism Affiliation | LDS | + + + | Race | White | + + + | Ethnic Group | Not or | + + + Author + + + | Author | [facility] | + + + | Organization | [facility] | + + + | Address | [...] Team Providers + +------+ + | Care Filling Winder Name | Role | Phone | + +------+ + | Ashwini Ochoa NP | PCP | | + +------+ + Reason for Referral Diagnostic Testing (Routine) +--------+--------+ + + + + | Status | Reason | Specialty | Diagnoses / | Referred By | Referred To | | | | | Procedures | Contact | Contact | +--------+--------+ + + + + | Closed | | Radiology | Diagnoses | Remling, | Xxrad Vasc | | | | | Bilateral | Chiquita Harrell, | [facility] [address] | | | | | leg edema | [place] [address] | | | | | Procedures | [address] | [address] | | | | | VASC LAB | [address] | Rd Mailcode: | | | | | VENOUS | [place], [place] | [address] | | | | | DUPLEX LOWER | [address] | Physician's | | | | | EXTREMITY | Phone: | Pavilion | | | | | BILAT COMP | [phone] | [facility] [place] | | | | | | Fax: | [address] | | | | | | [phone] | Phone: | | | | | | | [phone] | | | | | | | Fax: | | | | | | | [phone] | +--------+--------+ + + + + Reason for Visit Diagnostic Testing (Routine) +--------+--------+ + + + + | Status | Reason | Specialty | Diagnoses / | Referred By | Referred To | | | | | Procedures | Contact | Contact | +--------+--------+ + + + + | Closed | | Radiology | Diagnoses | Remling, | Xxrad Vasc | | | | | Bilateral | Chiquita Harrell, | [facility] [address] | | | | | leg edema | [place] [address] | [address] | | | | | Procedures | [address] | [address] | | | | | VASC LAB | [address] | Rd Mailcode: | | | | | VENOUS | [place], [place] | [address] | | | | | DUPLEX LOWER | [address] | Physician's | | | | | EXTREMITY | Phone: | Pavilion | | | | | BILAT COMP | [phone] | [place], [place] | | | | | | Fax: | [address] | | | | | | [phone] | Phone: | | | | | | | [phone] | | | | | | | Fax: | | | | | | | [phone] | +--------+--------+ + + + + Encounter Details +--------+ + + + + | Date | Type | Department | Care Team | Description | +--------+ + + + + | 11/16/ | Hospital | Diagnostic | | | | 2014 | Encounter | Radiology at [facility] | | | | | | [address] | | | | | | [address] Mailcode: | | | | | | [address] Physician's | | | | | | Pavilion [place], | | | | | | [place] [address] | | | | | | [phone] | | | +--------+ + + + [...] + + documented as of this encounter Medications at Time of Discharge + + + +---------+ + + | Medication | Sig | Dispensed | Refills | Start | End Date | | | | | | Date | | + + + +---------+ + + | Acetaminophen 500 | Take 500 mg by mouth | | 0 | | | | mg oral capsule | every six hours as | | | | | | | needed. | | | | | + + + +---------+ + + | | Take by mouth as | | 0 | | | | ACETAMINOPHEN/PYRILA | needed. | | | | | | M/PAMABROM (PAMPRIN | | | | | | | MULTI-SYMPTOM ORAL) | | | | | | + + + +---------+ + + | ASCORBIC ACID | Take by mouth once | | 0 | | | | (VITAMIN C ORAL) | daily in the | | | | | | | morning. | | | | | + + + +---------+ + + | buPROPion XL 300 | 300 mg once daily in | | 0 | 06/21/20 | | | mg oral tablet | the morning. | | | 14 | | | extended release 24 | | | | | | | hr | | | | | | + + + +---------+ + + | CA | Take by mouth three | | 0 | | | | CARBONATE/VITAMIN | times daily. | | | | | | D3/VIT K (VIACTIV | | | | | | | ORAL) | | | | | | + + + +---------+ + + | celecoxib 200 mg | Take 1 capsule by | | 0 | 10/29/19 | | | oral capsule | mouth once daily in | | | 15 | | | | the morning. May | | | | | | | resume 2 weeks after | | | | | | | surgery | | | | | + + + +---------+ + + | dexamethasone 4 mg | Take 1 tablet by | 12 | 0 | 10/29/19 | | | oral tablet | mouth every six | tablet | | 15 | | | | hours. Take 1 tablet | | | | | | | by mouth every 8 | | | | | | | hours for 2 days. | | | | | | | Take 1 tablet by | | | | | | | mouth once daily for | | | | | | | 2 days. | | | | | + + + +---------+ + + | DULoxetine 60 mg | 60 mg once daily in | | 0 | 06/21/20 | | | oral capsule,delayed | the morning. | | | 14 | | | release(/EC) | | | | | | + + + +---------+ + + | ergocalciferol | Take 50,000 Units by | | 0 | 05/31/20 | | | 50,000 unit oral | mouth once a week. | | | 14 | | | capsule | | | | | | + + + +---------+ + + | gabapentin 300 mg | 900 mg once daily at | | 0 | 06/21/20 | | | oral capsule | bedtime. | | | 14 | | + + + +---------+ + + | LANSOPRAZOLE 30 mg | Take by mouth once | | 0 | 09/04/19 | | | oral | daily at bedtime. | | | 15 | | | capsule,delayed | | | | | | | release(/ANNA) | | | | | | + + + +---------+ + + | LITHIUM CARBONATE | Take 600 mg by mouth | | 0 | 07/31/20 | | | 300 mg oral capsule | once daily at | | | 14 | | | | bedtime. 2 mwcy=508 | | | | | | | mg | | | | | + + + +---------+ + + | LORAZEPAM 1 mg | Take 1 mg by mouth | | 0 | 08/23/19 | | | oral tablet | every six hours as | | | 15 | | | | needed (as needed & | | | | | | | @ HS). | | | | | + + + +---------+ + + | omeprazole | Take 20 mg by mouth | | 0 | | | | magnesium (PRILOSEC | once daily in the | | | | | | OTC) 20 mg oral | morning. | | | | | | tablet,delayed | | | | | | | release (DR/EC) | | | | | | + + + +---------+ + + | PEDIATRIC MULTIVIT | Take by mouth once | | 0 | | | | COMB #19/FA | daily in the | | | | | | (CHILDREN'S | morning. | | | | | | MULTI-VIT GUMMIES | | | | | | | ORAL) | | | | | | + + + +---------+ + + | polyethylene | Take 17 g by mouth | 119 g | 0 | 10/29/19 | | | glycol 17 gram/dose | once daily as | | | 15 | | | oral | needed. Indications: | | | | | | powderIndications: | CONSTIPATION | | | | | | constipation | | | | | | + + + +---------+ + + | senna-docusate | Take 1 tablet by | | 0 | 10/29/19 | | | 8.6-50 mg oral | mouth two times | | | 15 | | | tabletIndications: | daily. Indications: | | | | | | constipation | CONSTIPATION | | | | | + + + +---------+ + + | silver | Apply to affected | | 0 | | | | sulfaDIAZINE | area once daily in | | | | | | (SILVADENE) 1 % | the morning. Apply | | | | | | topical cream | with a | | | | | | | sterile-gloved hand; | | | | | | | Burned area should | | | | | | | be covered with | | | | | | | cream at all times. | | | | | + + + +---------+ + + | tiZANidine 2 mg | Take 1 tablet by | 60 | 0 | 10/29/19 | | | oral tablet | mouth three times | tablet | | 15 | | | | daily as needed. | | | | | | | Max: 36 mg / day. | | | | | + + + +---------+ + + | TOPIRAMATE 25 mg | 50 mg two times | | 0 | 09/05/19 | | | oral tablet | daily. 2 tabs=50 mg | | | 15 | | | | BID | | | | | + + + +---------+ + + | TRAMADOL 50 mg | Take 50 mg by mouth | | 0 | 09/17/19 | | | oral tablet | every six hours as | | | 15 | | | | needed. | | | | | + + + +---------+ + + | ZIPRASIDONE 80 mg | Take 160 mg by mouth | | 0 | 09/06/19 | | | oral capsule | once daily at | | | 15 | | | | bedtime. | | | | | + + + +---------+ + + documented as of this encounter Plan of Treatment Not on filedocumented as of this encounter Procedures + +--------+ + + + | Procedure Name | Priori | Date/Time | Associated Diagnosis | Comments | | | ty | | | | + +--------+ + + + | VASC LAB VENOUS | Routin | 11/16/2014 | Bilateral leg | Results for this | | DUPLEX LOWER | e | 3:00 PM | edema | procedure are in the | | EXTREMITY BILAT COMP | | PDT | | results section. | + +--------+ + + + documented in this encounter Results VASC LAB VENOUS DUPLEX LOWER EXTREMITY BILAT COMP (11/16/2014 3:00 PM PDT) + + + + + + | Component | Value | Ref Range | Performed | Pathologist | | | | | At | Signature | + + + + + + | VASC LAB | LOWER EXTREMITY VENOUS | | | | | VENOUS | STUDY: 11/16/2014 | | | | | DUPLEX | Dictated 11/16/2014 | | | | | LOWER | INDICATION: Swelling. | | | | | EXTREMITY | ICD9 CODE: 729.81 The | | | | | BILATERAL | Duplex scanner was used | | | | | COMPLETE | to examine the deep and | | | | | | superficial veins of | | | | | | theright and left lower | | | | | | extremities. Veins are | | | | | | patent with normal flows | | | | | | andresponses to | | | | | | augmentation and | | | | | | compression maneuvers. | | | | | | No thrombus is | | | | | | noted.Examination of the | | | | | | calf veins was | | | | | | technically difficult. | | | | | | IMPRESSION: Venous | | | | | | examination of the lower | | | | | | extremities. No | | | | | | evidence of venous | | | | | | thrombus buttechnically | | | | | | difficult calf vein | | | | | | study. END IMPRESSION | | | | | | Attending Radiologists: | | | | | | ,Author: SISI | | | | | | MD JEFFY I have | | | | | | personally viewed this | | | | | | procedure/exam, reviewed | | | | | | this report, and | | | | | | madechanges to it where | | | | | | appropriate. | | | | | | Final/Electronically | | | | | | signed / SISI | | | | | | JEFFY Preliminary / | | | | | | Germania Dasilva | | | | + + + + + + + + | Specimen | + + | | + + + +---------+ + + | Performing | Address | City/State/Zipcode | Phone Number | | Organization | | | | + +---------+ + + | [facility] DEPARTMENT OF | | | | | RADIOLOGY | | | | + +---------+ + + documented in this encounter Visit Diagnoses + + | Diagnosis | + + | Bilateral leg edema Edema | + + documented in this encounter"
--- OUTSIDE RECORDS SUMMARY | ~2019-06-06 | XMS | Encounter Summary ---
Demographics + + + | Address | [address] | | | [place] [address] | + + + | Home Phone | | + + + | Preferred Language | Unknown | + + + | Marital Status | | + + + | Yazdanism Affiliation | LDS | + + + | Race | White | + + + | Ethnic Group | Not or | + + + Author + + + | Author | [facility] | + + + | Organization | [facility] | + + + | Address [...] Team Providers + +------+ + | Care Side Door Worker Name | Role | Phone | + +------+ + | Ashwini Ochoa NP | PCP | | + +------+ + Encounter Details +--------+ + + + + | Date | Type | Department | Care Team | Description | +--------+ + + + + | 10/22/ | Document-Sc | UNKNOWN DEPARTMENT | Unknown . | | | 2014 | anned | [address] | | | | | [address] | | | | | | [place], [place] | | | | | | [address] | | | +--------+ + + + [...] | + + | Allan Anthony - 10/22/2014 11:11 AM PDT | + + + + | Transcriptions | + + | Raj Faculty - 10/22/2014 11:11 AM PDT | + + | Raj, Faculty - 10/22/2014 11:11 AM PDT | + + | Raj Faculty - 10/22/2014 11:11 AM PDT | + + documented in this encounter Visit Diagnoses Not on filedocumented in this encounter"
--- OUTSIDE RECORDS SUMMARY | ~2019-06-06 | XMS | Encounter Summary ---
Demographics + + + | Address | [address] | | | [place] [address] | + + + | Home Phone | | + + + | Preferred Language | Unknown | + + + | Marital Status | | + + + | Yazidism Affiliation | LDS | + + + | Race | White | + + + | Ethnic Group | Not or | + + + Author + + + | Author | [facility] | + + + | Organization | [facility] | + + + | [...] Team Providers + +------+ + | Care Staff Pharmacist Name | Role | Phone | + +------+ + | Ashwini Ochoa NP | PCP | | + +------+ + Encounter Details +--------+ + + + + | Date | Type | Department | Care Team | Description | +--------+ + + + + | 10/18/ | Patrol Lady | Neurosurgery at | Tali Jackson, | Neoplasm of brain | | 2014 | | [facility] [address] | PA-C [address] | (HCC) (Primary Dx) | | | | Ave Mailcode: [address] | Ave [place], [place] | | | | | [facility] | [address] | | | | | and Healing, | [phone] | | | | | [facility] [address] | | | | | | Floor [facility] [place] | | | | | | [address] | | | | | | [phone] | | | +--------+ + + + [...]
--- OUTSIDE RECORDS SUMMARY | ~2019-06-06 | XMS | Encounter Summary ---
Demographics + + + | Address | [address] | | | [place] [address] | + + + | Home Phone | | + + + | Preferred Language | Unknown | + + + | Marital Status | | + + + | Voodoo Affiliation | LDS | + + + | Race | White | + + + | Ethnic Group | Not or | + + + Author + + + | Author | [facility] | + + + | Organization | [facility] | + + + | [...] Team Providers + +------+ + | Care Distribution Systems Superintendent Name | Role | Phone | + [...] Pharmacy | | | | | | [address] | | | | | | [address] [address], | | | | | | [place] [address] | | | +--------+ + + + [...]
--- OUTSIDE RECORDS SUMMARY | ~2019-06-06 | XMS | Encounter Summary ---
Demographics + + + | Address | [address] | | | [place] [address] | + + + | Home Phone | | + + + | Preferred Language | Unknown | + + + | Marital Status | | + + + | Zoroastrianism Affiliation | LDS | + + + | Race | White | + + + | Ethnic Group | Not or | + + + Author + + + | Author | [facility] | + + + | Organization | [facility] | + + + | Address [...] Team Providers + +------+ + | Care Core Cutter Name | Role | Phone | [...] Rd | | | | | | [place], [place] | | | | | | [address] | | | +--------+ + + + [...]
--- OUTSIDE RECORDS SUMMARY | ~2019-06-06 | XMS | Encounter Summary ---
Demographics + + + | Address | [address] | | | [place] [address] | + + + | Home Phone [...] Team Providers + +------+ + | Care Prenatal Nurse Name | Role | Phone | + [...] Closed | | Radiology | Diagnoses | Mackenzie, | | | | | | | Nury Harrell, | | | | | | Subependymom | [place] [address] | | | | | | a (HCC) | [address] | | | | | | Procedures | [address] | | | | | | MRI BRAIN | [place], [place] | | | | | | TUMOR | [address] | | | | | | EVALUATION | Phone: | | | | | | [facility] CONTRAST | [phone] | | | | | | | Fax: | | | | | | | [phone] | | +--------+--------+ + + + + Reason for Visit + + + | Reason | Comments | + + + | Follow-up visit | | + + + Encounter Details +--------+---------+ + + + | Date | Type | Department | Care Team | Description | +--------+---------+ + + + | 06/14/ | Office | Neurosurgery at | Cristopher Mckinney MD | Subependymoma (HCC) | | 2015 | Visit | [facility] [address] | [address] | (Primary Dx) | | | | Ave Mail[address]: [address] | [place], [place] | | | | | [facility] | [address] | | | | | and Healing, | [phone] | | | | | [facility] | | | | | | Floor [place], [place] | | | | | | [address] | | | | | | [phone] | | | +--------+---------+ + + + [...] + documented in this encounter Progress Notes Cristopher Mckinney MD - 06/26/2015 11:20 AM PSTMs. Bakari is doing great. Nodule is not relate d to prior surgery as is distant to surgical site. Likely osteoma given that it is hard. W e will watch it. Patient will need a surveillence MRI which can be done locally. Please see Ms. Hill's note for details. I spent 15 minutes with the patient. 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 Suboccipital craniectomy and C1 laminectomy. 2. Resection of 4th ventricular mass. 3. Titanium mesh cranioplasty. 4. Use of a high-powered operating microscope. 5. Frameless stereotaxy. 6. Intraoperative neuromonitoring with SSEP, MEP and EMG of cranial nerves IX through XII. Subjective: Mendoza Villegas is a 44 y.o. 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 She was seen last in clinic on 11/16/14 at which time she was contin uing to experience severe headaches (nonfocal). Ms Villegas [facility] She denies headaches currently. She does note recurrent right posterior parietal te nder nodule that she reports Dr Mckinney removed during surgery. She denies any problems with her surgical incision. She was unable to be seen by genetics as they no longer have an adult genetics counselor. Patient accompanied to the clinic by her friend. Past Medical History Diagnosis Date Brain tumor (HCC) Headache Sleep apnea Anxiety Depression Bipolar disorder (HCC) DDD (degenerative disc disease) Acetaminophen 500 mg oral capsule, Take 500 mg by mouth every six hours as needed. ACETAMINOPHEN/PYRILAM/PAMABROM (PAMPRIN MULTI-SYMPTOM ORAL), Take by mouth as needed. albuterol 90 mcg/actuation inhalation HFA aerosol inhaler, Inhale every four hours as neede d. ASCORBIC ACID (VITAMIN C ORAL), Take by mouth once daily in the morning. buPROPion XL 300 mg oral tablet extended release 24 hr, 300 mg once daily in the morning. CA CARBONATE/VITAMIN D3/VIT K (VIACTIV ORAL), Take by mouth three times daily. celecoxib 200 mg oral capsule, Take 1 capsule by mouth once daily in the morning. May resum e 2 weeks after surgery dexamethasone 4 mg oral tablet, Take 1 tablet by mouth every six hours. Take 1 tablet by [facility] every 8 hours for 2 days. Take 1 tablet by mouth once daily for 2 days. DULoxetine 60 mg oral capsule,delayed release(DR/EC), 60 mg once daily in the morning. ergocalciferol 50,000 unit oral capsule, Take 50,000 Units by mouth once a week. gabapentin 300 mg oral capsule, 900 mg once daily at bedtime. LANSOPRAZOLE 30 mg oral capsule,delayed release(DR/EC), Take by mouth once daily at bedtim e. LITHIUM CARBONATE 300 mg oral capsule, Take 600 mg by mouth once daily at bedtime. 2 tabs=6 00 mg LORAZEPAM 1 mg oral tablet, Take 1 mg by mouth every six hours as needed (as needed & @ HS) . omeprazole magnesium (PRILOSEC OTC) 20 mg oral tablet,delayed release (DR/EC), Take 20 mg b y mouth once daily in the morning. PEDIATRIC MULTIVIT COMB #19/FA (CHILDREN'S MULTI-VIT GUMMIES ORAL), Take by mouth once joseph ly in the morning. polyethylene glycol 17 gram/dose oral powder, Take 17 g by mouth once daily as needed. Elizabeth cations: CONSTIPATION senna-docusate 8.6-50 mg oral tablet, Take 1 tablet by mouth two times daily. Indications: CONSTIPATION silver sulfaDIAZINE (SILVADENE) 1 % topical cream, Apply to affected area once daily in morning. Apply with a sterile-gloved hand; Burned area should be covered with cream at all times. tiZANidine 2 mg oral tablet, Take 1 tablet by mouth three times daily as needed. Max: 36 mg / day. TOPIRAMATE 25 mg oral tablet, 50 mg two times daily. 2 tabs=50 mg BID TRAMADOL 50 mg oral tablet, Take 50 mg by mouth every six hours as needed. ZIPRASIDONE 80 mg oral capsule, Take 160 mg by mouth once daily at bedtime. Physical Exam: VS: Wt 103.4 kg (227 lb 15.3 oz), BP 153/98, Pulse 93, Temperature 36.4 C (97.6 F), Te mperature source Tympanic, BMI 43.09 kg/(m^2). General: Awake, alert HEENT: gaze conjugate, EOM's intact, faces symmetric Language: fluent and articulate without evidence of aphasia or dysarthria Motor: SAGE's, equal strength; patient reports numbness of fingertips Derm: surgical incision well-healed; no underlying tenderness IMAGING: No new imaging Assessment: Mendoza Villegas is a 44 y.o. year old female with history of suboccipital cran iectomy for resection of fourth ventricular ependymoma. She is doing very well with complet e resolution of pre operative symptoms. 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 Plan: 1) OK to perform MRI brain wwo contrast in September 2015 locally. Patient provided with e xternal referral and can also contact us to fax referral for [facility] in [facility]. 2) Contact our office or present to [facility] Emergency Department for severe headache not reli eved with pain medication, especially if also associated with nausea/emesis; altered mental status; other acute or worsening neurologic finding. 3) Call our clinic for new neurologic symptoms. This patient was staffed with the attending physician, who also personally evaluated the karen jackson. 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
--- OUTSIDE RECORDS SUMMARY | ~2019-06-06 | XMS | Encounter Summary ---
Demographics + + + | Address | [address] | | | [place] [address] | + + + | Home Phone | | + + + | Preferred Language | Unknown | + + + | Marital Status | | + + + | Yazidi Affiliation | LDS | + + + | Race | White | + + + | Ethnic Group | Not or | + + + Author + + + | Author | [facility] | + + + | Organization | [facility] | + + + | Address [...] Team Providers + +------+ + | Care Railway Head Tender Name | Role | Phone | + +------+ + | Ashwini Ochoa NP | PCP | | + +------+ + Encounter Details +--------+ + + + + | Date | Type | Department | Care Team | Description | +--------+ + + + + | 03/06/ | Document-Sc | Health Information | Unknown . | | | 2013 | anned | Services [address] | | | | | | [address] | | | | | | Mailcode: [address] | | | | | | [facility] | | | | | | [place], [place] | | | | | | [address] | | | | | | [phone] | | | +--------+ + + + [...] + + + | RADIOLOGY | | 03/06/2014 | | Results for this | | | | 12:00 AM | | procedure are in the | | | | PDT | | results section. | + +--------+ + + + documented in this encounter Results RADIOLOGY (03/06/2014 12:00 AM PDT) + + + | Narrative | Performed At | + + + | | | + + + documented in this encounter Visit Diagnoses Not on filedocumented in this encounter"
--- OUTSIDE RECORDS SUMMARY | ~2019-06-06 | XMS | Clinical Summary ---
Demographics + + + | Address | [address] | | | [place] [address] | + + + | Home Phone | | + + + | Preferred Language | Unknown | + + + | Marital Status | | + + + | Moravian Affiliation | Unknown | + + + | Race | Unknown | + + + | Ethnic Group | Unknown | + + + Author + + + | Author | [facility] (Historical as of | | | 03-18-19) | + + + | Organization | [facility] (Historical as of | | | 03-18-19) [...] [place] | | | | | [address] | | + + + + + Care Team Providers + +------+ + | Care Enterprise Software Engineer Name | Role | Phone | [...] | 0/20 | | e | | [address] UNITS capsule | | | | 14 [...] +------+-------+ + | PREMERA | PREMER | [id number] | | | [address] [address] | | | A BLUE | 1 | | | [place] | | | CARD | | | | [address] | +---------+--------+ +------+-------+ + + +--------+ +--------+ [...] | [address] | | | [address] | [address] | + +--------+ +--------+ + +"
--- OUTSIDE RECORDS SUMMARY | ~2019-06-06 | XMS | Encounter Summary ---
Demographics + + + | Address | [address] | | | [place] [address] | + + + | Home Phone | | + + + | Preferred Language | Unknown | + + + | Marital Status | | + + + | Orthodox Affiliation | LDS | + + + | Race | White | + + + | Ethnic Group | Not or | + + + Author + + + | Author | [facility] | + + + | Organization | [facility] | + + + | Address [...] Team Providers + +------+ + | Care Mr Teacher Name | Role | Phone | + +------+ + | Ashwini Ochoa NP | PCP | | + +------+ + Encounter Details +--------+ + + + + | Date | Type | Department | Care Team | Description | +--------+ + + + + | 10/18/ | Wax Pattern Assembler | Neurosurgery at | Tali Jackson, | Neoplasm of brain | | 2014 | | [facility] [address] | PA-C [address] | (HCC) (Primary Dx) | | | | Ave Mailcode: CH8N | Ave [place], [place] | | | | | [facility] | [address] | | | | | and Healing, | [phone] | | | | | [facility] | | | | | | Floor [facility] [place] | | | | | | [address] | | | | | | [phone] | | | +--------+ + + + [...]
--- OUTSIDE RECORDS SUMMARY | ~2019-06-06 | XMS | Clinical Summary ---
Demographics + + + | Address | [address] | | | [place] [address] | + + + | Home Phone [...] Team Providers + +------+ + | Care Stone Circular Sawyer Name | Role | Phone | + +------+ + | Marixa Weber MD | PCP | | + +------+ + Source Comments LIZZJUAN is fully live on both [facility] [place] [facility] Allergies + + + + + + [...] | e | | | bedtime. 2 [id number] | | | 14 | | | [...] brain | 08/20/2014 | + + + Encounters +--------+--------+ + + + | Date | Type | Specialty | Care Team | Description | +--------+--------+ + + + | 05/21/ | Intake | | | N/A | | 2019 | | | | | +--------+--------+ + + + from Last 3 Months Social History + + + +--------+------+ | [...] 12/29/ | [id number] | | 3 - [id number]: Qty: | | Head | LIFESCIENCE | | 2017 | 91 / | | 1 on 2014 by Santos | | | S | | | /[id number] | | MD Bart at [facility] | | | | | | 70 | | REV LOC | | | | | | | + +------+-------+ +--------+--------+--------+ | Mesh Contour [id number] | | N/A: | [employer] | | | 04.503 | | Malleable Matrix Neuro - | | Head | | | | .083 / | | [id number]: Qty: 1 on | | | | | | / | | 2014 by Bart Graham, | | | | | | | | MD at [facility] INPATIENT REV LOC | | | | | | | + +------+-------+ +--------+--------+--------+ | Screw 04mm Ti Self-Drill | | N/A: | [facility] | | | 04.503 | | Matrix Neuro - | | Head | | | | .104.0 | | [id number]: Qty: 6 on | | | | | | 1 / / | | 2014 by Bart Graham, | | | | | | | | MD at [facility] INPATIENT REV LOC | | | | [...] BLUE | BCBS | [phone] | | [phone] | [address] | PPO | | SHIELD | OUT OF | x | [phone] | 8 | [phone] [place] | | | | STATE | | esent | | [place], | | | | | | | | [place] | | | | | | | | [address] | | + +--------+ +--------+ + +------+ + +--------+ +--------+ + + | Guarantor Name | Accoun | Relation to | Date | Phone | Billing Address | | | t Type | Patient | of | | | | | | | | | | + +--------+ +--------+ + + | Mendoza Villegas | Person | Self | [birth year] | [address] | | | al/Fam | | 1971 | [phone] | [address] [place], [place] | | | [place]red[place] | | | 1 (Home) | [address] | + +--------+ +--------+ + + Advance [...]
--- OUTSIDE RECORDS SUMMARY | ~2019-06-06 | XMS | Encounter Summary ---
Demographics + + + | Address | [address] | | | [place] [address] | + + + | Home Phone [...] + + + | Author | [facility] | + + + | Organization | [facility] | + + + [...] Team Providers + +------+ + | Care Jewelry Sales Representative Name | Role | Phone | + [...] Refill Request | | 2014 | | [facility] [address] | [address] | | | | | Yany Mailcode: CH8N | [place], [place] | | | | | [facility] | [address] | | | | | and [place], | [phone] | | | | | [facility] | | | | | | [place], [place] | | | | | | [address] | | | | | | [phone] | | | +--------+ + + + [...]
--- OUTSIDE RECORDS SUMMARY | ~2019-06-06 | XMS | Clinical Summary ---
Demographics + + + | Address | [address] | | | [place] [address] | + + + | Home Phone [...] | Author | [facility] | | | and [place] | + + + | Organization | [facility] | | | and [place] | + + + | Address | Unknown | + + + | Phone | Unavailable | + + + Support + + +---------+ + | Name | Relationship | Address | Phone | + + +---------+ + | Tiffany Pizarro | ECON | Unknown | | | e | | | | + + +---------+ + Care Team Providers + +------+ + | Care Master Printer Name | Role | Phone | + +------+ + | Ronda aWde MD | PCP | | + +------+ + Allergies + + + + + + | Active Allergy | Reactions | Severity | Noted | Comments | | | | | Date | | + + + + + + | Adhesive & Tape | Rash | Low | 10/30/20 | Paper tape okay | | | [...] 0 | | | Activ | | EGFN-Mfmsmife-Blzioo | as needed (pain). | | | [...] + + | H/O Colon polyp - 2017 | 06/01/2017 | + + + + [...] + + | Overview: Brain Tumor Excision 2014 at [facility] | + + + + + | [...] | Blood Pressure | 147/94 | 06/01/2017 1200 PDT | + + + + | Pulse | 71 | 06/01/2017 1200 PDT | + + + + | Temperature | 36.4 C (97.5 F) | 06/01/20171146 PDT | + + + + | Respiratory Rate | 16 | 06/01/20171146 PDT | + + + + | Oxygen Saturation | 97% | 06/01/2017 1200 PDT | + + + + | Inhaled Oxygen | - | - | | Concentration | | | + + + + | Weight | 102.3 kg (225 lb 8.5 | 06/01/2017946 PDT | | | oz) | | + + + + | Height | 152.4 cm (5') | 06/01/2017946 PDT | + + + + | Body Mass Index | 44.05 | 06/01/2017946 PDT | + + + + Plan of [...] +-------+--------+ +--------+-------+---------+------+ | BCBS | BCBS | [id number] | | | | PPO | | [...] [place] | | | 1 (Home) | [address] | + +--------+ +--------+ + + Advance Directives Patient has advance care planning documents on file. For more information, please contact:[facility] [place] [address]"
--- OUTSIDE RECORDS SUMMARY | ~2019-06-06 | XMS | Encounter Summary ---
Demographics + + + | Address | [address] | | | [place] [address] | + + + | Home Phone | | + + + | Preferred Language | Unknown | + + + | Marital Status | | + + + | Quaker Affiliation | LDS | + + + | Race | White | + + + | Ethnic Group | Not or | + + + Author + + + | Author | [facility] | + + + | Organization | [facility] | + + + | Address [...] Team Providers + +------+ + | Care Crisis Nurse Name | Role | Phone | [...] Estimate | Surgery | Neoplasm of | Bart, MD | Bart, MD | | | | | uncertain | [address] | [address] | | | | | behavior of | Avenue | Avenue | | | | | brain and | [place], [place] | [place], [place] | | | | | spinal cord | [address] | [address] | | | | | (HCC) | Phone: | Phone: | | | | | Procedures | [phone] | [phone] | | | | | REQUEST TO | Fax: | Fax: | | | | | SURGERY | [phone] | [phone] | | | | | INSTRUMENT ASSEMBLY SUPERVISOR | | | | | | | MO EXCIS | | | | | | | INFRATENT | | | | | | | BRAIN TUMOR | | | | | | | MO SCAN | | | | | | [...] fossa | | 2015 | Visit | [facility] [address] | [address] | tumor (HCC) (Primary | | | | Ave Mailcode: CH8N | [place], [place] | Dx) | | | | [facility] | [address] | | | | | and Healing, | [phone] | | | | | [facility] | | | | | | Floor [place], [place] | | | | | | [address] | | | | | | [phone] | | | +--------+---------+ + + + [...] by me and if not recorded in [employer] will be scanned into the stem using intake patient forms during this encounter.) [...]
--- OUTSIDE RECORDS SUMMARY | ~2019-06-06 | XMS | Encounter Summary ---
Demographics + + + | Address | [address] | | | [place] [address] | + + + | Home Phone | | + + + | Preferred Language | Unknown | + + + | Marital Status | | + + + | Mandaen Affiliation | LDS | + + + | Race | White | + + + | Ethnic Group | Not or | + + + Author + + + | Author | [facility] | + + + | Organization | [facility] | + + + | Address [...] Team Providers + +------+ + | Care Web Administrator Name | Role | Phone | + +------+ + | Ashwini Ochoa NP | PCP | | + +------+ + Encounter Details +--------+ + + + + | Date | Type | Department | Care Team | Description | +--------+ + + + + | 01/29/ | Document-Sc | Health Information | Unknown . | | | 2017 | anned | Services [address] | | | | | | [address] | | | | | | Mailcode: OP17A | | | | | | [facility] | | | | | | [place], [place] | | | | | | [address] | | | | | | [phone] | | | +--------+ + + + [...]
--- OUTSIDE RECORDS SUMMARY | ~2019-06-06 | XMS | Encounter Summary ---
Demographics + + + | Address | [address] | | | [place] [address] | + + + | Home Phone | | + + + | Preferred Language | Unknown | + + + | Marital Status | | + + + | Christianity Affiliation | LDS | + + + | Race | White | + + + | Ethnic Group | Not or | + + + Author + + + | Author | [facility] | + + + | Organization | [facility] | + + + | Address [...] Team Providers + +------+ + | Care Worldwide Chief Creative Officer Name | Role | Phone | + +------+ + | Ashwini Ochoa NP | PCP | | + +------+ + Encounter Details +--------+ + + + + | Date | Type | Department | Care Team | Description | +--------+ + + + + | 03/06/ | Document-Sc | Health Information | Unknown . | | | 2013 | anned | Services [address] | | | | | | [address] | | | | | | Mailcode: OP17A | | | | | | [facility] | | | | | | [place], [place] | | | | | | [address] | | | | | | [phone] | | | +--------+ + + + [...]
--- OUTSIDE RECORDS SUMMARY | ~2019-06-06 | XMS | Clinical Summary ---
Demographics + + + | Address | [address] | | | [place] [address] | + + + | Home Phone | | + + + | Preferred Language | Unknown | + + + | Marital Status | | + + + | Mandaeism Affiliation | 1027 | + + + | Race | Unknown | + + + | Ethnic Group | Unknown | + + + Author + + + | Author | [facility] | | | and [place] | + + + | Organization | [facility] | | | [...] Team Providers + +------+ + | Care Tool Maintenance Worker Name | Role | Phone | [...] 0 | | | Activ | | VIQL-Nbqegxsz-Mqpfva | as needed (pain). | | | [...] +-------+--------+ +--------+-------+---------+------+ | BCBS | BCBS | [id number] | | | | PPO | | [...] [place] | | | 1 (Home) | [address] | + +--------+ +--------+ + + Advance Directives Patient has advance care planning documents on file. For more information, please contact:[facility] [place] [address]"
--- OUTSIDE RECORDS SUMMARY | ~2019-06-06 | XMS | Encounter Summary ---
Demographics + + + | Address | [address] | | | [place] [address] | + + + | Home Phone [...] Team Providers + +------+ + | Care Unit Control Worker Name | Role | Phone | [...] + + | 10/24/ | Hospital | [facility] [address] | Bart Graham MD | | | 2014 - | Encounter | [facility] | [address] [facility] | | | | | [id number] NESSA | [place], [place] | | | 10/28/ | | [place], | [address] | | | 2014 | | [place] [address] | [phone] | | | | | [phone] | | | +--------+ + + + [...] ventricular mass, admitted [facility] on 2014 for the procedures described above. [...] at 9:30am. We are located at the [facility], [address] [place] [address]. Address: [address] [place] [address]. Please call [phone] for questions o r concerns. 2. Follow up with your PCP to review your hospital course and medication changes. Please call to schedule this appointment. Future Appointments Date & Time Provider Department Dept Phone Center 11/09/2014 9:30 AM Bart Graham Neurosurgery at [facility] [phone] Neurosurgery Discharging Physician: JAIME HOWARD MD Attending [...] 14 | | | | bedtime. 2 [id number]=[id number] | | | | | | | [...] Hours (or 3 results): Recent Labs 10/25/14 02010/26/14 01010/26/14 2200 10/27/14 0639 10/27/14 0646 NA 141 [...] issues Jaime Howard MD Neurosurgery Resident Pager #[phone] MEDICATIONS Current Facility-Administered Medications Medication acetaminophen (TYLENOL) [...] 50 mg ziprasidone (GEODON) capsule 160 mg art Graham MD - 0 10/26/2014 12:38 PM PDT [...] 7NSICU ATTENDING NEUROINTENSIVIST PROGRESS NOTE Team Pager: [phone] Attendin -------- EVENING NOTE -------- Date:10/25/2014 Critical [...] s/s of infection # Bipolar: Restart Wellbutrin, [place], Duloxetine, Ziprasidone, and lorazepam (prn) # Lines: CVL (subclavian), matos, PIV - d/c matos Relevant Risks: This patient is currently at risk for the following: cerebral edema, hydroc ephalus, intracerebral hemorrhage and seizure; central line associated blood stream infectio n, DVT/Pulmonary embolism, ICU delirium and UTI. I spent 30 minutes actively involved in the care and management of this patient. Sachin Ward MD [facility] DEPARTMENT: [id number] ICU NEURO Place of Service:- Inpatient Date of Service: 10/25/2014 CSN: [id number] Suggested Modifier: None Suggested CPT: TO NET PROGRAMMER ANALYST RELEVANT DATA: Last Vitals: BP 112/66 | [...] charting, and discussion with treatment decision maker. [facility] DEPARTMENT: [id number] CRITICAL CARE Place of Service: Inpatient Date of Service: 10/25/2014 CSN: [id number] Suggested Level of Care: 13514 - CRITICAL CARE, 1ST HOUR EACH DAY [...] NSGY att: Dr. Graham ICU#1. POD#1. HPI: Jaradwrandy Villegas is a 44yo female with a [...] MRI -dexamethasone 4mg q6--slow taper ordered. -medication FIRER WATERTENDER: Geodon 160mg qHS, tramadol 50mg q6hr prn [...] for NV - Diet: Regular diet - [facility] bowel protocol - MIVF: Normal saline [...] ove assessment and plan. TORITO GONG, VALENTINA [facility] DEPARTMENT: [id number] ICU NEURO Place of Service:- Inpatient Date of Service: 10/25/2014 CSN: [id number] Suggested Modifier: None Suggested CPT: TO NET PROGRAMMER ANALYST Kareen Martinez MD - 2014 6:49 PM [...] - 2014 6:19 PM PDT 7NSICU ATTENDING FAN BLADE ALIGNER DAILY PROGRESS NOTE Team Pager: [phone] Attendin Date:2014 Critical Care Attending Physician: SACHIN [...] with the primary team and the consultants [facility] ed. (Relevant data is listed at the bottom of this note). CC / Hx / Last 24hr: s/p 1) Suboccipital craniectomy and C1 laminectomy 2) Resection of fo urth ventricular mass; Tium mesh cranioplasty Patient Active Problem List Diagnosis Neoplasm of brain PMH: Bipolar, anxiety, headaches , GERD, asthma Home meds: Ziprasidone, Tramadol, Topiramate, Lorazepam, Russell[place], Lansoprazole, Dilaudid, Celecoxib, g abapentin, duloxetine, bupropion, [...] opioids: continue gabapentin # Bipolar: Restart Wellbutrin, [place], Duloxetine, Ziprasidone, and lorazepam (prn) # Lines: arterial line, CVL (subclavian), matos, PIV Relevant Risks: This patient is currently at risk for the following: cerebral edema, hy drocephalus, intracerebral hemorrhage and seizure; central line associated blood stream infe ction, DVT/Pulmonary embolism, ICU delirium and UTI. I spent 65 minutes actively involved in the care and management of this patient. Sachin Ward MD [facility] DEPARTMENT: [id number] ICU NEURO Place of Service:- Inpatient Date of Service: erEDICAL RECORD NUMBER [id number] CSN: [id number] Suggested Modifier: None Suggested CPT: TO NET PROGRAMMER ANALYST RELEVANT DATA: Last Vitals: BP 139/80 | [...] (H) | 60 - 99 mg/dL | [facility] - | | | GLUCOSE, | | [...] PROSPER | [address] | [place], [place] | | | [facility] POINT OF CARE | [address] | [address] | | | TESTS | | | [...] PROSPER | [address] | [place], [place] | | | MALINA NELSON OF BEL | [address] | [address] | | | TESTS | | | [...] | + + + + + | [facility] | [address] | [place] [address] | | | SERVICES, CORE | PARK [...] | | | LABORATORY | | | CHADIAN | | | SERVICES, | | | [...] the MDRD equation recommended by the | [facility] | | National Kidney Disease Education Program. [...] | + + + + + | [facility] | [address] | [place] [address] | | | CHI, GABRIELLE | KAYLEN [...] SALLYAM | [address] | [place], [place] | | | [place] POINT OF CARE | [address] | [address] | | | TESTS | | | [...] CHENG | [address] | [place], [place] | | | MALINA NELSON OF BEL | [address] | [address] | | | TESTS | | | [...] MAR[facility] | [address] | [place], [place] | | | [place] [facility]INT OF CARE | [address] | [address] | | | TESTS | | | [...] | + + + + + | [facility] | [address] | [place] [address] | | | SERVICES, CORE | KAYLEN [...] | | | LABORATORY | | | CHADIAN | | | SERVICES, | | | [...] the MDRD equation recommended by the | [facility] | | National Kidney Disease Education Program. [...] | + + + + + | [facility] | [address] | [place] [address] | | | SERVICES, GABRIELLE | KAYLEN [...] (H) | 60 - 99 mg/dL | [facility] - | | | GLUCOSE, | | [...] CHENG | [address] | [place], [place] | | | [place]IE POINT OF CARE | [address] | [address] | | | TESTS | | | [...] PROSPER | [address] | [place], [place] | | | MALINA NELSON OF CARE | [address] | [address] | | | TESTS | | | [...] PROSPER | [address] | [place], [place] | | | MALINA NELSON OF CARE | [facility] | [address] | | | TESTS | | | [...] (H) | 60 - 99 mg/dL | [facility] - | | | GLUCOSE, | | | MARQUAM | | | POC | | | MALINA NLESON | | | | | | OF [...] CHENG | [address] | [place], [place] | | | [place]IE POINT OF CARE | [address] | [address] | | | TESTS | | | | + + + + + OPERATION RECORD (10/26/2014 9:22 AM PDT) + + | Transcriptions | + + | Bart Graham MD - 2014 10:30 PM PDT Date of Service: 2014 Attending | | Surgeon: Bart Graham MD Granulizing Machine Operator(s): Brady Conroy MD, | | PhD. Preoperative [...] and she was placed in the Bhagat irrigator overhead and flipped into | | the prone position on chest rolls. Her arms were tucked at her sides and all pressure | | points were carefully padded. We then registered the [employer] frameless stereotactic | | navigation system with [...] curette with Kerrison punches. We used a [place] dissector to | | carefully dissect the [...] the subarachnoid space. We then used a [place] | | elevator and opened the dura [...] were removed. She was removed from the [place] irrigator overhead | | and flipped into the supine [...] 2014 | | 18:04:22DT: 2014 22:30:30Job #: [id number] | + + CAPILLARY BLOOD GLUCOSE (NO [...] SALLYAM | [address] | [place], [place] | | | MALINA NELSON OF BEL | [facility] | [address] | | | TESTS | | | [...] (H) | 60 - 99 mg/dL | [facility] - | | | GLUCOSE, | | [...] CHENG | [address] | [place], [place] | | | [place] POINT OF CARE | [address] | [address] | | | TESTS | | | [...] [facility] | [address] | [place] [address] | | | SERVICES, CORE | PARK [...] | | | LABORATORY | | | CHADIAN | | | SERVICES, | | | [...] | + + + + + | [facility] | [address] | [place] [address] | | | SERVICES, CORE | KAYLEN [...] MARQUAM | [address] | [place], [place] | | | [facility]IE POINT OF CARE | [address] | [address] | | | TESTS | | | [...] + | [facility] | [address] | [place], [place] | | | L[facility]IE POINT OF CARE | [address] | [address] | | | TESTS | | | [...] + + + | [facility] CH[facility] | [address] | [place], [place] | | | MALINA NELSON OF BEL | [address] | [address] | | | TESTS | | | [...] MARQUAM | [address] | [place], [place] | | | [facility] POINT OF CARE | [address] | [address] | | | TESTS | | | [...] | + + + + + | [facility] | [address] | [place] [address] | | | SERVICES, SPECIAL | KAYLEN [...] | + + + + + | [facility] [employer] [facility] | [address] | [place] [address] | | | SERVICES, CORE | KAYLEN [...] | | | LABORATORY | | | CHADIAN | | | SERVICES, | | | [...] the MDRD equation recommended by the | [facility] | | National Kidney Disease Education Program. [...] | + + + + + | [facility] | [address] | [place] [address] | | | SERVICES, CORE | PARK [...] | | | | | | contrast. [id number] | | | | | | reformatted [...] + + + | X-RAY | EXAM: CO CHEST 1 VIEW | | | | [...] [facility] | [address] | [place] [address] | | | SERVICES, CORE | PARK [...] | | | LABORATORY | | | CHADIAN | | | SERVICES, | | | [...] | + + + + + | [facility] | [address] [facility] | [place] [address] | | | GABRIELLE MIRELES | KAYLEN [...] | + + + + + | [facility] | [address] | [place] [address] | | | SERVICES, CORE | KAYLEN [...] | + + + + + | [facility] | [address] | [place] [address] | | | SERVICESGABRIELLE | [address] [...] | + + + + + | [facility] | [address] | [place] [address] | | | SERVICES, CORE | PARK [...] + | [facility] | [address] | [place], [place] | | | MALINA NELSON OF BEL | [address] | [address] | | | TESTS | | | [...] MARQUAM | | | | | | HILL[place]ALINA | | | | | | OF [...] PROSPER | [address] | [place], [place] | | | MALINA NELSON OF BEL | [facility] | [address] | | | TESTS | | | [...] PROSPER | [address] | [place], [place] | | | MALINA NELSON OF [facility] | [address] | [address] | | | TESTS | | | [...] CHENG | [address] | [place], [place] | | | MALINA NELSON OF BEL | [facility] | [address] | | | TESTS | | | [...] + + + + | [facility] | [address] | [place], [place] | | | MALINA NELSON OF CARE | [facility] | [address] | | | TESTS | | | [...] [facility] | [address] | [place], [place] | | | MALINA NELSON OF [facility] | [address] | [address] | | | TESTS | | | | + + + + + HEMOGLOBIN-COOX POC (2014 1:21 PM PDT) + + [...] PROSPER | [address] | [place], [place] | | | MALINA NELSON OF [facility] | [address] | [address] | | | TESTS | | | [...] + + + | [facility] | [address] | [place], [place] | | | MALINA NELSON OF [facility] | [address] | [address] | | | TESTS | | | [...] mass | | | | | | [id number] x 12 mm in | | | [...] [facility] | [address] | [place] [address] | | | SERVICES, | [address] [...] | + + + + + | [facility] | [address] [facility] | [place] [address] | | | SERVICES, | [address] | | | | TRANSFUSION MEDICINE | | | | + + + + + INTRAOPERATIVE NEURO MONITORING (2014) + + + | Narrative | Performed At | + + + | Patient Name: Mendoza Villegas Date of : 1970 Medical | | | Record Number: [id number] Date of Test: 2014 Place of | | | Service: IP Intra Op (70) [id number] INTRAOPERATIVE NEURO | | | MONITORING History: [...] of | | | Neurology Suggested CPT: 56689 - IOM Remote x 3 hr(s) 58547 - | | | Short Latency EP's Upper AND Lower extremities 27888 - Central Motor | | | EP's Upper AND Lower extremities 72941 - EMG Cranial Bilateral - IOM | | | 33706 - Neuromuscular Junction Test Suggested Diagnosis: 237.5 [...] | 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 / | | | | | [...] | + + + + + | [facility] | [address] | [place] [address] | | | PATHOLOGY | [address] [...] | | | | | NEEDED, Starting [facility] 10/25/14 at | | | | | | | 1344, Until [place] 10/28/14 at 1929, | | | | [...] | | | | | NEEDED, Starting [facility] 10/25/14 | | PM PDT | [...]
--- OUTSIDE RECORDS SUMMARY | ~2019-06-06 | XMS | Encounter Summary ---
Demographics + + + | Address | [address] | | | [place] [address] | + + + | Home Phone [...] Team Providers + +------+ + | Care Engine Assembler Name | Role | Phone | [...] Phone Call | | 2017 | | [facility] [address] | [address] [place] | | | | | Yany Mailcode: CH8N | [place], [place] | | | | | [facility] | [address] | | | | | and Clarisse, | [phone] | | | | | [facility] | | | | | | [place], [place] | | | | | | [address] | | | | | | [phone] | | | +--------+ + + + [...]
--- OUTSIDE RECORDS SUMMARY | ~2019-06-06 | XMS | Clinical Summary ---
Demographics + + + | Address | [address] | | | [place] [address] | + + + | Home Phone | | + + + | Preferred Language | Unknown | + + + | Marital Status | | + + + | Buddhism Affiliation | Unknown | + + + | Race | Unknown | + + + | Ethnic Group | Unknown | + + + Author + + + | Author | [facility] (Historical as of | | | 03-18-19) | + + + | Organization | [facility] (Historical as of | | | 03-18-19) [...] [place] | | | | | [address] | | + + + + + Care Team Providers + +------+ + | Care Career And Guidance Counselor Name | Role | Phone | [...] | 0/20 | | e | | [address] UNITS capsule | | | | 14 [...] +------+-------+ + | PREMERA | PREMER | [id number] | | | [address] [address] | | | A BLUE | 1 | | | [place] | | | CARD | | | | [address] | +---------+--------+ +------+-------+ + + +--------+ +--------+ [...] | [address]red[place] | | | [address] | [address] | + +--------+ +--------+ + +"
--- OUTSIDE RECORDS SUMMARY | ~2019-06-06 | XMS | Encounter Summary ---
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 | | | | [address] | | FS, ??? 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 We are located at the [facility], [address] [place] [address]. Address: [address] [place] [address]. Please call [phone] for questions o r concerns. 2. Follow up with your PCP to review your hospital course and medication changes. Please call to schedule this appointment. Future Appointments Date & Time Provider Department Dept Phone Center 11/09/2014 9:30 AM Bart Graham Neurosurgery at [facility] [phone] Neurosurgery Discharging Physician: JAIEM HOWARD MD Attending Physician: Bart Graham MD [...] 14 | | | | bedtime. 2 [id number] | | | | | | | [...] issues Jaime Howard MD Neurosurgery Resident Pager #[phone] MEDICATIONS Current Facility-Administered Medications Medication acetaminophen (TYLENOL) [...] 7NSICU ATTENDING NEUROINTENSIVIST PROGRESS NOTE Team Pager: [phone] Attendin -------- EVENING NOTE -------- Date:10/25/2014 Critical [...] s/s of infection # Bipolar: Restart Wellbutrin, [place]es[place], Duloxetine, Ziprasidone, and lorazepam (prn) # Lines: CVL (subclavian), matos, PIV - d/c matos Relevant Risks: This patient is currently at risk for the following: cerebral edema, hydroc ephalus, intracerebral hemorrhage and seizure; central line associated blood stream infectio n, DVT/Pulmonary embolism, ICU delirium and UTI. I spent 30 minutes actively involved in the care and management of this patient. Sachin Ward MD [facility] DE[facility]MENT: [id number] ICU NEURO Place of Service:- Inpatient Date of Service: 10/25/2014 CSN: [id number] Suggested Modifier: None Suggested CPT: TO SHOE STOCK ASSOCIATE RELEVANT DATA: Last Vitals: BP 112/66 | [...] charting, and discussion with treatment decision maker. [facility] DEPARTMENT: [id number] CRITICAL CARE Place of Service: Inpatient Date of Service: 10/25/2014 CSN: [id number] Suggested Level of Care: 58895 - CRITICAL CARE, 1ST HOUR EACH DAY [...] MRI -dexamethasone 4mg q6--slow taper ordered. -medication SUPERINTENDENT MENAGERIE: Geodon 160mg qHS, tramadol 50mg q6hr prn [...] for NV - Diet: Regular diet - [facility] bowel protocol - MIVF: Normal [...] ove assessment and plan. TORITO GONG, VALENTINA [facility] DEPARTMENT: [id number] ICU NEURO Place of Service:- Inpatient Date of Service: 10/25/2014 CSN: [id number] Suggested Modifier: None Suggested CPT: TO SHOE STOCK ASSOCIATE Kareen Martinez MD - 2014 6:49 PM [...] - 2014 6:19 PM PDT 7NSICU ATTENDING DIRECTOR OF ADMISSIONS DAILY PROGRESS NOTE Team Pager: [phone] Attendin Date:2014 Critical Care Attending Physician: SACHIN [...] asthma Home meds: Ziprasidone, Tramadol, Topiramate, Lorazepam, Hesperia, Lansoprazole, Dilaudid, Celecoxib, g abapentin, duloxetine, bupropion, [...] opioids: continue gabapentin # Bipolar: Restart Wellbutrin, Hesperia, Duloxetine, Ziprasidone, and lorazepam (prn) # Lines: arterial line, CVL (subclavian), matos, PIV Relevant Risks: This patient is currently at risk for the following: cerebral edema, hy drocephalus, intracerebral hemorrhage and seizure; central line associated blood stream infe ction, DVT/Pulmonary embolism, ICU delirium and UTI. I spent 65 minutes actively involved in the care and management of this patient. Sachin Ward MD [facility] DE[facility]MENT: [id number] ICU NEURO Place of Service:- Inpatient Date of Service: erEDICAL RECORD NUMBER [id number] CSN: [id number] Suggested Modifier: None Suggested CPT: TO SHOE STOCK ASSOCIATE RELEVANT DATA: Last Vitals: BP 139/80 | [...] CHENG | [address] | [place], [place] | | | MALINA NELSON OF CARE | [address] | [address] | | | TESTS | | | [...] SALLYAM | [address] | [place], [place] | | | LESLIE POINT OF CARE | [address] | [address] | | | TESTS | | | [...] | + + + + + | [facility] | [address] | [place] [address] | | | SERVICES, CORE | KAYLEN [...] | | | LABORATORY | | | [place] | | | SERVICES, | | | [...] MDRD equation recommended by the | [facility] | | National Kidney Disease Education Program. [...] + + + + + | [facility] | [address] | [place] [address] | | | GABRIELLE MIRELES | KAYLEN [...] | 60 - 99 mg/dL | [facility] - | | | GLUCOSE, | | [...] SHELLEYQUAM | [address] | [place], [place] | | | LESLIE POINT OF CARE | [address] | [address] | | | TESTS | | | [...] CHENG | [address] | [place], [place] | | | MALINA NELSON OF BEL | [facility] | [address] | | | TESTS | | | [...] - MARQUAM | [address] | [place], [place] | | | LESLIE POINT OF CARE | [facility] | [address] | | | TESTS | | | [...] + + + + + | [facility] | [address] | [place] [address] | | | CHI, CORE | KAYLEN [...] | | | LABORATORY | | | [place] | | | SERVICES, | | | [...] + + + + + | [facility] | [address] | [place] [address] | | | SERVICES, CORE | KAYLEN [...] | 60 - 99 mg/dL | [facility] - | | | GLUCOSE, | | [...] CHENG | [address] | [place], [place] | | | MALINA NELSON OF BEL | [address] | [address] | | | TESTS | | | [...] MARQUAM | [address] | [place], [place] | | | MALINA NELSON OF CARE | [address] | [address] | | | TESTS | | | [...] MARQUAM | [address] | [place], [place] | | | MALINA NELSON OF CARE | [address] | [address] | | | TESTS | | | [...] CHENG | [address] | [place], [place] | | | MALINA NELSON OF BEL | [address] | [address] | | | TESTS | | | | + + + + + OPERATION RECORD (10/26/2014 9:22 AM PDT) + + | Transcriptions | + + | Bart Graham MD - 2014 10:30 PM PDT Date of Service: 2014 Attending | | Surgeon: Bart Graham MD Director Quality Assurance(s): Brady Conroy MD, | | PhD. Preoperative [...] and she was placed in the Bhagat cathead worker and flipped into | | the prone position on chest rolls. Her arms were tucked at her sides and all pressure | | points were carefully padded. We then registered the [employer] frameless stereotactic | | navigation system with [...] curette with Kerrison punches. We used a [place] dissector to | | carefully dissect the [...] the subarachnoid space. We then used a [place] | | elevator and opened the dura [...] were removed. She was removed from the [place] cathead worker | | and flipped into the supine [...] 2014 | | 18:04:22DT: 2014 22:30:30Job #: [id number] | + + CAPILLARY BLOOD GLUCOSE (NO [...] MARQUAM | [address] | [place], [place] | | | MALINA NELSON OF CARE | [address] | [address] | | | TESTS | | | [...] CHENG | [address] | [place], [place] | | | MALINA NELSON OF CARE | [address] | [address] | | | TESTS | | | [...] [facility] | [address] | [place] [address] | | | SERVICES, CORE | PARK [...] | | | LABORATORY | | | [place] | | | SERVICES, | | | [...] | + + + + + | [facility] | [address] [facility] | [place] [address] | | | SERVICES, GABRIELLE | KAYLEN [...] MARQUAM | [address] | [place], [place] | | | MALINA NELSON OF BEL | [facility] | [address] | | | TESTS | | | [...] | 60 - 99 mg/dL | [facility] - | | | GLUCOSE, | | [...] MARQUAM | [address] | [place], [place] | | | MALINA NELSON OF [facility] | [address] | [address] | | | TESTS | | | [...] CHENG | [address] | [place], [place] | | | MALINA NELSON OF CARE | [facility] | [address] | | | TESTS | | | [...] - MARQUAM | [address] | [place], [place] | | | LESLIE POINT OF CARE | [address] | [address] | | | TESTS | | | [...] | + + + + + | [facility] | [address] | [place] [address] | | | SERVICES, SPECIAL | PARK [...] | + + + + + | [facility] | [address] | [place] [address] | | | SERVICES, CORE | KAYLEN [...] | | | LABORATORY | | | [place] | | | SERVICES, | | | [...] the MDRD equation recommended by the | [facility] | | National Kidney Disease Education Program. [...] | + + + + + | [facility] | [address] | [place] [address] | | | CHI, GABRIELLE | KAYLEN [...] | | | | | | contrast. [id number] | | | | | | reformatted [...] + + + | X-RAY | EXAM: WI CHEST 1 VIEW | | | | [...] [facility] | [address] | [place] [address] | | | SERVICES, CORE | PARK [...] | | | LABORATORY | | | [place] | | | SERVICES, | | | [...] + + + + + | [facility] | [address] [facility] | [place] [address] | | | GABRIELLE MIRELES | KAYLEN [...] | + + + + + | [facility] | [address] | [place] [address] | | | SERVICES, CORE | KAYLEN [...] [facility] | [address] | [place] [address] | | | SERVICES, GABRIELLE | KAYLEN [...] + + + + + | [facility] | [address] | [place] [address] | | | SERVICES, CORE | PARK [...] MARLIZAM | [address] | [place], [place] | | | MALINA NELSON OF BEL | [address] | [address] | | | TESTS | | | [...] MARQUAM | [address] | [place], [place] | | | LESLIE POINT OF CARE | [facility] | [address] | | | TESTS | | | [...] + + + | MYRIAM CHENG | [address] | [place], [place] | | | MALINA NELSON OF [facility] | [address] | [address] | | | TESTS | | | [...] MARLIZAM | [address] | [place], [place] | | | MALINA NELSON OF BEL | [address] | [address] | | | TESTS | | | [...] MARLIZAM | [address] | [place], [place] | | | MALINA NELSON OF CARE | [facility] | [address] | | | TESTS | | | [...] CHENG | [address] | [place], [place] | | | MALINA NELSON OF CARE | [address] | [address] | | | TESTS | | | [...] SALLYAM | [address] | [place], [place] | | | MALINA NELSON OF CARE | [address] | [address] | | | TESTS | | | [...] + + + | MYRIAM CHENG | [address] | [place], [place] | | | MALINA NELSON OF [facility] | [address] | [address] | | | TESTS | | | [...] mass | | | | | | [id number] x 12 mm in | | | [...] | + +---------+ + + | [facility] DEPARTMENT OF | | | | | [...] [facility] | [address] | [place] [address] | | | SERVICES, | [address] [...] | + + + + + | [facility] | [address] | [place] [address] | | | SERVICES, | [address] | | | | TRANSFUSION MEDICINE | | | | + + + + + INTRAOPERATIVE NEURO MONITORING (2014) + + + | Narrative | Performed At | + + + | Patient Name: Mendoza Villegas Date of : 1970 Medical | | | Record Number: [id number] Date of Test: 2014 Place of | | | Service: IP Intra Op (47) [id number] INTRAOPERATIVE NEURO | | | MONITORING History: [...] of | | | Neurology Suggested CPT: 33520 - IOM Remote x 3 hr(s) 00769 - | | | Short Latency EP's Upper AND Lower extremities 27405 - Central Motor | | | EP's Upper AND Lower extremities 73298 - EMG Cranial Bilateral - IOM | | | 43318 - Neuromuscular Junction Test Suggested Diagnosis: 237.5 [...] + + + | [facility] | [address] | [place] [address] | | | PATHOLOGY | [address] [...]
--- OUTSIDE RECORDS SUMMARY | ~2019-06-06 | XMS | Encounter Summary ---
Demographics + + + | Address | [address] | | | [place] [address] | + + + | Home Phone | | + + + | Preferred Language | Unknown | + + + | Marital Status | | + + + | Taoist Affiliation | LDS | + + + [...] Team Providers + +------+ + | Care Agent Spa Desk Name | Role | Phone | + [...] Medication Refill | | 2014 | | [facility] [address] | [address] [place] | | | | | Yany Mailcode: CH8N | [place], [place] | | | | | [facility] | [address] | | | | | and Clarisse, | [phone] | | | | | [place] [address] | | | | | | [place], [place] | | | | | | [address] | | | | | | [phone] | | | +--------+ + + + [...]
--- OUTSIDE RECORDS SUMMARY | ~2019-06-06 | XMS | Encounter Summary ---
Demographics + + + | Address | [address] | | | [place] [address] | + + + | Home Phone | | + + + | Preferred Language | Unknown | + + + | Marital Status | | + + + | Evangelical Affiliation | LDS | + + + | Race | White | + + + | Ethnic Group | Not or | + + + Author + + + | Author | [facility] | + + + | Organization | [facility] | + + + | Address | [...] Team Providers + +------+ + | Care Turbine Engineer Name | Role | Phone | [...] + | 10/24/ | Hospital | [facility] [address] | Bart Graham MD | | | 2014 - | Encounter | [facility] | [address] [facility] | | | | | [id number] NESSA | [place], [place] | | | 10/28/ | | [place], | [address] | | | 2014 | | [place] [address] | [phone] | | | | | [phone] | | | +--------+ + + + [...] ventricular mass, admitted [facility] on 2014 for the procedures [...] at 9:30am. We are located at the [facility], [address] [place] [address]. Address: [address] [place] [address]. Please call [phone] for questions o r concerns. 2. Follow up with your PCP to review your hospital course and medication changes. Please call to schedule this appointment. Future Appointments Date & Time Provider Department Dept Phone Center 11/09/2014 9:30 AM Bart Graham Neurosurgery at [facility] [phone] Neurosurgery Discharging Physician: JAIME HOWARD MD Attending [...] 14 | | | | bedtime. 2 [id number] | | | | | | | [...] issues Jaime Howard MD Neurosurgery Resident Pager #[phone] MEDICATIONS Current Facility-Administered Medications Medication acetaminophen (TYLENOL) [...] 7NSICU ATTENDING NEUROINTENSIVIST PROGRESS NOTE Team Pager: [phone] Attendin -------- EVENING NOTE -------- Date:10/25/2014 Critical [...] s/s of infection # Bipolar: Restart Wellbutrin, [place], Duloxetine, Ziprasidone, and lorazepam (prn) # Lines: [...] MD [facility] DEPARTMENT: [id number] ICU NEURO Place of Service:- Inpatient Date of Service: 10/25/2014 CSN: [id number] Suggested Modifier: None Suggested CPT: TO PLANNING FEEDER RELEVANT DATA: Last Vitals: BP 112/66 | [...] maker. [facility] DEPARTMENT: [id number] CRITICAL CARE Place of Service: Inpatient Date of Service: 10/25/2014 CSN: [id number] Suggested Level of Care: 37850 - CRITICAL CARE, 1ST HOUR EACH DAY [...] MRI -dexamethasone 4mg q6--slow taper ordered. -medication GEMOLOGIST: Geodon 160mg qHS, tramadol 50mg q6hr prn [...] for [place] - Diet: Regular diet - [facility] bowel protocol - MIVF: Normal [...] [facility] DEPARTMENT: [id number] ICU NEURO Place of Service:- Inpatient Date of Service: 10/25/2014 CSN: [id number] Suggested Modifier: None Suggested CPT: TO PLANNING FEEDER Kareen Martinez MD - 2014 6:49 PM [...] - 2014 6:19 PM PDT 7NSICU ATTENDING SET STAFF FITTER DAILY PROGRESS NOTE Team Pager: [phone] Attendin Date:2014 Critical Care Attending Physician: SACHIN [...] with the primary team and the consultants [facility] ed. (Relevant data is listed at the bottom of this note). CC / Hx / Last 24hr: s/p 1) Suboccipital craniectomy and C1 laminectomy 2) Resection of fo urth ventricular mass; Tium mesh cranioplasty Patient Active Problem List Diagnosis Neoplasm of brain PMH: Bipolar, anxiety, headaches , GERD, asthma Home meds: Ziprasidone, Tramadol, Topiramate, Lorazepam, [place], Lansoprazole, Dilaudid, Celecoxib, g abapentin, duloxetine, bupropion, [...] opioids: continue gabapentin # Bipolar: Restart Wellbutrin, [place], Duloxetine, Ziprasidone, and lorazepam (prn) # Lines: [...] MD [facility] DEPARTMENT: [id number] ICU NEURO Place of Service:- Inpatient Date of Service: erEDICAL RECORD NUMBER [id number] CSN: [id number] Suggested Modifier: None Suggested CPT: TO PLANNING FEEDER RELEVANT DATA: Last Vitals: BP 139/80 | [...] | 60 - 99 mg/dL | [facility] - | | | GLUCOSE, | [...] PROSPER | [address] | [place], [place] | | | LESLIE POINT OF CARE | [address] | [address] | | | TESTS | | | [...] PROSPER | [address] | [place], [place] | | | MALINA NELSON OF BEL | [address] | [address] | | | TESTS | | | [...] | + + + + + | [facility] | [address] | [place] [address] | | | SERVICES, CORE | PARK [...] | | | LABORATORY | | | KITTITIAN | | | SERVICES, | | | [...] MDRD equation recommended by the | [facility] | | National Kidney Disease Education [...] + + + + + | [facility] | [address] | [place] [address] | | | CHI, GABRIELLE | KAYLEN [...] SALLYAM | [address] | [place], [place] | | | LESLIE POINT OF CARE | [address] | [address] | | | TESTS | | | [...] CHENG | [address] | [place], [place] | | | MALINA NELSON OF BEL | [address] | [address] | | | TESTS | | | [...] MARQUAM | [address] | [place], [place] | | | LESLIE POINT OF CARE | [address] | [address] | | | TESTS | | | [...] | + + + + + | [facility] | [address] | [place] [address] | | | SERVICES, CORE | KAYLEN [...] | | | LABORATORY | | | KITTITIAN | | | SERVICES, | | | [...] MDRD equation recommended by the | [facility] | | National Kidney Disease Education [...] | + + + + + | [facility] | [address] | [place] [address] | | | SERVICES, GABRIELLE | KAYLEN [...] | 60 - 99 mg/dL | [facility] - | | | GLUCOSE, | [...] CHENG | [address] | [place], [place] | | | LESLIE POINT OF CARE | [address] | [address] | | | TESTS | | | [...] PROSPER | [address] | [place], [place] | | | MALINA NELSON OF CARE | [address] | [address] | | | TESTS | | | [...] PROSPER | [address] | [place], [place] | | | MALINA NELSON OF CARE | [facility] | [address] | | | TESTS | | | [...] | 60 - 99 mg/dL | [facility] - | | | GLUCOSE, | [...] CHENG | [address] | [place], [place] | | | LESLIE POINT OF CARE | [address] | [address] | | | TESTS | | | | + + + + + OPERATION RECORD (10/26/2014 9:22 AM PDT) + + | Transcriptions | + + | Bart Graham MD - 2014 10:30 PM PDT Date of Service: 2014 Attending | | Surgeon: Bart Graham MD Ruby Developer(s): Brady Conroy MD, | | PhD. Preoperative [...] she was placed in the Bhagat head scorer and flipped into | | the prone position on chest rolls. Her arms were tucked at her sides and all pressure | | points were carefully padded. We then registered the Berggi frameless stereotactic | | navigation system with [...] curette with Kerrison punches. We used a [place] dissector to | | carefully dissect the [...] the subarachnoid space. We then used a [place] | | elevator and opened the dura [...] were removed. She was removed from the [place] head scorer | | and flipped into the supine [...] 2014 | | 18:04:22DT: 2014 22:30:30Job #: [id number] | + + CAPILLARY BLOOD GLUCOSE (NO [...] SALLYAM | [address] | [place], [place] | | | MALINA NELSON OF BEL | [facility] | [address] | | | TESTS | | | [...] | 60 - 99 mg/dL | [facility] - | | | GLUCOSE, | [...] CHENG | [address] | [place], [place] | | | LESLIE POINT OF CARE | [address] | [address] | | | TESTS | | | [...] [facility] | [address] | [place] [address] | | | SERVICES, CORE | PARK [...] | | | LABORATORY | | | KITTITIAN | | | SERVICES, | | | [...] | + + + + + | [facility] | [address] | [place] [address] | | | SERVICES, CORE | KAYLEN [...] MARQUAM | [address] | [place], [place] | | | LESLIE POINT OF CARE | [address] | [address] | | | TESTS | | | [...] - MARQUAM | [address] | [place], [place] | | | LESLIE POINT OF CARE | [address] | [address] | | | TESTS | | | [...] + + + | MYRIAM CHENG | [address] | [place], [place] | | | MALINA NELSON OF BEL | [address] | [address] | | | TESTS | | | [...] MARQUAM | [address] | [place], [place] | | | LESLIE POINT OF CARE | [address] | [address] | | | TESTS | | | [...] | + + + + + | [facility] | [address] | [place] [address] | | | SERVICES, SPECIAL | KAYLEN [...] | + + + + + | [facility] | [address] | [place] [address] | | | SERVICES, CORE | KAYLEN [...] | | | LABORATORY | | | KITTITIAN | | | SERVICES, | | | [...] MDRD equation recommended by the | [facility] | | National Kidney Disease Education [...] + + + + + | [facility] | [address] | [place] [address] | | | SERVICES, CORE | PARK [...] | | | | | | contrast. [id number] | | | | | | reformatted [...] | + +---------+ + + | [facility] DEPARTMENT OF | | | | [...] [facility] | [address] | [place] [address] | | | SERVICES, CORE | PARK [...] | | | LABORATORY | | | KITTITIAN | | | SERVICES, | | | [...] | + + + + + | [facility] | [address] [facility] | [place] [address] | | | GABRIELLE MIRELES | KAYLEN [...] | + + + + + | [facility] | [address] | [place] [address] | | | SERVICES, CORE | KAYLEN [...] + + + + + | [facility] | [address] | [place] [address] | | | SERVICESGABRIELLE | [address] [...] | + + + + + | [facility] | [address] | [place] [address] | | | SERVICES, CORE | PARK [...] PROSPER | [address] | [place], [place] | | | MALINA NELSON OF BEL | [address] | [address] | | | TESTS | | | [...] PROSPER | [address] | [place], [place] | | | MALINA NELSON OF BEL | [facility] | [address] | | | TESTS | | | [...] PROSPER | [address] | [place], [place] | | | MALINA NELSON OF [facility] | [address] | [address] | | | TESTS | | | [...] CHENG | [address] | [place], [place] | | | MALINA NELSON OF BEL | [facility] | [address] | | | TESTS | | | [...] MARDEBRA | [address] | [place], [place] | | | MALINA NELSON OF CARE | [facility] | [address] | | | TESTS | | | [...] MARQUAM | [address] | [place], [place] | | | MALINA NELSON OF [facility] | [address] | [address] | | | TESTS | | | [...] PROSPER | [address] | [place], [place] | | | MALIAN NELSON OF [facility] | [address] | [address] | | | TESTS | | | [...] + + + | MYRIAM CHENG | [address] | [place], [place] | | | MALINA NELSON OF [facility] | [address] | [address] | | | TESTS | | | [...] mass | | | | | | x 12 mm in | | | [...] [facility] | [address] | [place] [address] | | | SERVICES, | [address] [...] | + + + + + | [facility] | [address] [facility] | [place] [address] | | | SERVICES, | [address] | | | | TRANSFUSION MEDICINE | | | | + + + + + INTRAOPERATIVE NEURO MONITORING (2014) + + + | Narrative | Performed At | + + + | Patient Name: Mendoza Villegas Date of : 1970 Medical | | | Record Number: [id number] Date of Test: 2014 Place of | | | Service: IP Intra Op [phone] [id number] INTRAOPERATIVE NEURO | | | MONITORING History: [...] of | | | Neurology Suggested CPT: 88660 - IOM Remote x 3 hr(s) 79202 - | | | Short Latency EP's Upper AND Lower extremities 91130 - Central Motor | | | EP's Upper AND Lower extremities 01603 - EMG Cranial Bilateral - IOM | | | 69781 - Neuromuscular Junction Test Suggested Diagnosis: 237.5 [...] | + + + + + | [facility] | [address] | [place] [address] | | | PATHOLOGY | [address] [...] | | | | | NEEDED, Starting [facility] 10/25/14 at | | | | | | | 1344, Until [place] 10/28/14 at 1929, | | | | [...] | | | | | NEEDED, Starting [facility] 10/25/14 | | PM PDT | | [...]
--- OUTSIDE RECORDS SUMMARY | ~2019-06-06 | XMS | Encounter Summary ---
Demographics + + + | Address | [address] | | | [place] [address] | + + + | Home Phone [...] Team Providers + +------+ + | Care Outpatient Phlebotomist Name | Role | Phone | + [...] MRI Results | | 2017 | | [facility] [address] | [address] | | | | | Ave Mailcode: CH8N | [place], [place] | | | | | [facility] | [address] | | | | | and [place], | [phone] | | | | | [facility] | | | | | | [place], [place] | | | | | | [address] | | | | | | [phone] | | | +--------+ + + + [...]
--- OUTSIDE RECORDS SUMMARY | ~2019-06-06 | XMS | Encounter Summary ---
Demographics + + + | Address | [address] | | | [place] [address] | + + + | Home Phone | | + + + | Preferred Language | Unknown | + + + | Marital Status | | + + + | Samaritan Affiliation | LDS | + + + | Race | White | + + + | Ethnic Group | Not or | + + + Author + + + | Author | [facility] | + + + | Organization | [facility] | + + + | Address [...] Team Providers + +------+ + | Care Boiler House Operator Name | Role | Phone | + +------+ + | Marixa Weber MD | PCP | | + +------+ + Encounter Details +--------+ + + + + | Date | Type | Department | Care Team | Description | +--------+ + + + + | 08/28/ | Document-Sc | UNKNOWN DEPARTMENT | Other, Faculty | | | 2014 | anned | [address] [facility] | [phone] | | | | | [address] | | | | | | [place], [place] | | | | | | [address] | | | +--------+ + + + [...]
--- OUTSIDE RECORDS SUMMARY | ~2019-06-06 | XMS | Encounter Summary ---
Demographics + + + | Address | [address] | | | [place] [address] | + + + | Home Phone [...] Team Providers + +------+ + | Care Process Lead Name | Role | Phone | [...] | | | 2015 | Event | [facility] | MD [address] | | | | | Admitting Desk | [address] | | | | | Located on the | [place], [place] | | | | | [facility] [address] | [address] | | | | | [address] | [phone] | | | | | [place], [place] | | | | | | [address] | | | +--------+ + + + [...]
--- OUTSIDE RECORDS SUMMARY | ~2019-06-06 | XMS | Encounter Summary ---
Demographics + + + | Address | [address] | | | [place] [address] | + + + | Home Phone [...] | | | | | [place], | | | | | | [place] [address] | | | +--------+--------+ + + + [...]
--- OUTSIDE RECORDS SUMMARY | ~2019-06-06 | XMS | Encounter Summary ---
Demographics + + + | Address | [address] | | | [place] [address] | + + + | Home Phone | | + + + | Preferred Language | Unknown | + + + | Marital Status | | + + + | Denominational Affiliation | LDS | + + + | Race | White | + + + | Ethnic Group | Not or | + + + Author + + + | Author | [facility] | + + + | Organization | [facility] | + + + | Address [...] Providers + +------+ + | Care Data Security Analyst Name | Role | Phone | [...] | | | 2015 | Event | [facility] | MD [address] | | | | | Admitting Desk | [address] | | | | | Located on the | [place], [place] | | | | | [facility] [address] | [address] | | | | | [address] | [phone] | | | | | [place], [place] | | | | | | [address] | | | +--------+ + + + [...]
--- OUTSIDE RECORDS SUMMARY | ~2019-06-06 | XMS | Encounter Summary ---
Demographics + + + | Address | [address] | | | [place] [address] | + + + | Home Phone [...] Team Providers + +------+ + | Care Billing Machine Operator Name | Role | Phone [...] Karis | | | | | | [place], [place] | | | | | | [address] | | | +--------+ + + + [...]
--- OUTSIDE RECORDS SUMMARY | ~2019-06-06 | XMS | Encounter Summary ---
Demographics + + + | Address | [address] | | | [place] [address] | + + + | Home Phone [...] Team Providers + +------+ + | Care Pathology Laboratory Aides Teacher Name | Role | Phone | + +------+ + | Ashwini Ochoa NP | PCP | | + +------+ + Encounter Details +--------+ + + + + | Date | Type | Department | Care Team | Description | +--------+ + + + + | 11/10/ | Telephone | Neurosurgery at | [place], | | | 2014 | | [facility] [address] | [address] | | | | | Yany Mailcode: CH8N | [facility] | | | | | [facility] | [place], [place] | | | | | and Clar[place], | [address] | | | | | [facility] | [phone] | | | | | Floor [place], [place] | | | | | | [address] | | | | | | [phone] | | | +--------+ + + + [...]
--- OUTSIDE RECORDS SUMMARY | ~2019-06-06 | XMS | Encounter Summary ---
Demographics + + + | Address | [address] | | | [place] [address] | + + + | Home Phone [...] Team Providers + +------+ + | Care Acupuncture Physician Name | Role | Phone | [...] | brain (HCC) | [address] | [facility] | | | | | Procedures | [facility] | Rd | | | | | MRI BRAIN | Rd | Mailcode: | | | | | W CONTRAST - | [place], [place] | [address] | | | | | FRAMELESS | [address] | [place] | | | | | STEREOTATIC | Phone: | Research | | | | | ONLY DC MRI | [phone] | [place] | | | | | BRAIN | Fax: | [place], [place] | | | | | CONTRAST | [phone] | [address] | | | | | | | Phone: | | | | | | | [phone] | | | | | | | Fax: | | | | | | | [phone] | +--------+--------+ + + + + Reason [...] Order | | 2015 | on | [facility] [address] | [address] | | | | | Ave Mailcode: CH8N | [place], [place] | | | | | [facility] | [address] | | | | | and Healing, | [phone] | | | | | [facility] | | | | | | [place], [place] | | | | | | [address] | | | | | | [phone] | | | +--------+ + + + [...]
--- OUTSIDE RECORDS SUMMARY | ~2019-06-06 | XMS | Encounter Summary ---
Demographics + + + | Address | [address] | | | [place] [address] | + + + | Home Phone [...] Team Providers + +------+ + | Care Stunt Person Name | Role | Phone | + +------+ + | Marixa Weber MD | PCP | | + +------+ + Encounter Details +--------+ + + + + | Date | Type | Department | Care Team | Description | +--------+ + + + + | 08/28/ | Document-Sc | UNKNOWN DEPARTMENT | Other, Faculty | | | 2014 | anned | [address] [facility] | [phone] | | | | | [address] | | | | | | [place], [place] | | | | | | [address] | | | +--------+ + + + [...]
--- OUTSIDE RECORDS SUMMARY | ~2019-06-06 | XMS | Encounter Summary ---
Demographics + + + | Address | [address] | | | [place] [address] | + + + | Home Phone [...] Team Providers + +------+ + | Care Insurance Salesman Name | Role | Phone | + [...] Rd | | | | | | [place], [place] | | | | | | [address] | | | +--------+ + + + [...]
--- OUTSIDE RECORDS SUMMARY | ~2019-06-06 | XMS | Encounter Summary ---
Demographics + + + | Address | [address] | | | [place] [address] | + + + | Home Phone [...] Team Providers + +------+ + | Care Paper Tube Grader Name | Role | Phone | + [...] | | | [address] | [place], [place] | | | | | [place] | [address] | | | | | [address] | [phone] | | | | | | | [...]
--- OUTSIDE RECORDS SUMMARY | ~2019-06-06 | XMS | Encounter Summary ---
Demographics + + + | Address | [address] | | | [place] [address] | + + + | Home Phone [...] Team Providers + +------+ + | Care Sterilizer Machine Operator Name | Role | Phone [...] Rd | | | | | | [place], [place] | | | | | | [address] | | | +--------+ + + + [...]
--- OUTSIDE RECORDS SUMMARY | ~2019-06-06 | XMS | Encounter Summary ---
Demographics + + + | Address | [address] | | | [place] [address] | + + + | Home Phone | | + + + | Preferred Language | Unknown | + + + | Marital Status | | + + + | Anabaptism Affiliation | LDS | + + + | Race | White | + + + | Ethnic Group | Not or | + + + Author + + + | Author | [facility] | + + + | Organization | [facility] | + + + | Address [...] Team Providers + +------+ + | Care Cup Setter Lockstitch Name | Role | Phone | + [...] | | | | | Stay [address] [facility] | | | | | | [address] | | | | | | Mailcode: UHN65 | | | | | | Colleen [place] | | | | | | [address] [place], [place] | | | | | | [address] | | | | | | [phone] | | | +--------+ + + + [...] mg by mouth once daily in the [facility]. TRAMADOL 50 MG TABLET Take 50 [...] by mouth once daily at bedtime. 2 fode=698 mg CHILDREN'S MULTI-VIT GUMMIES ORAL Take by [...] perfume, lotions or powder. Remove any nail turkmen from at least one fingernail. Do not [...] your procedure. Surgery Check in Locations Admitting [facility] Surgery Check in Time: Someone from your surgeon's office or [facility] will provide you with information regarding [...] it is after office hours, call the [facility] petroleum terminal plant operator at [phone] and ask them to page your doc tor. documented in this encounter Plan of Treatment Not on filedocumented as of this encounter Visit Diagnoses Not on filedocumented in this encounter"
--- OUTSIDE RECORDS SUMMARY | ~2019-06-06 | XMS | Encounter Summary ---
Demographics + + + | Address | [address] | | | [place] [address] | + + + | Home Phone [...] Team Providers + +------+ + | Care Laborer Chemical Processing Name | Role | Phone | + [...] | | | | brain and | [place] | | | | | spinal cord | [address] | [address] | | | | | (HCC) | Phone: | Phone: | | | | | Procedures | [phone] | [phone] | | | | | REQUEST TO | Fax: | Fax: | | | | | SURGERY | [phone] | [phone] | | | | | CUSTOMER EXPERIENCE INTERN | | | | | | | FL EXCIS | | | | | | | INFRATENT | | | | | | | BRAIN TUMOR | | | | | | | FL SCAN | | | | | | [...] fossa | | 2015 | Visit | [facility] [address] | [address] | tumor (HCC) (Primary | | | | Ave Mailcode: CH8N | [place], [place] | Dx) | | | | [facility] | [address] | | | | | and Healing, | [phone] | | | | | [facility] | | | | | | Floor [place], [place] | | | | | | [address] | | | | | | [phone] | | | +--------+---------+ + + + [...] by me and if not recorded in [employer] will be scanned into the stem using [...]
--- OUTSIDE RECORDS SUMMARY | ~2019-06-06 | XMS | Encounter Summary ---
Demographics + + + | Address | [address] | | | [place] [address] | + + + | Home Phone [...] Team Providers + +------+ + | Care Automotive Parts Interpreter Name | Role | Phone | + [...] | | | Procedures | Veterans | [facility] | | | | | CONSULT TO | Hospital | Rd Mailcode: | | | | | [facility] | Road | [facility] | | | | | GENETICS | [place], [place] | [place], [place] | | | | | | [address] | [address] | | | | | | Phone: | Phone: | | | | | | [phone] | [phone] | | | | | | Fax: | Fax: | | | | | | [phone] | [phone] | +--------+--------+ + + + + Diagnostic [...] | | | | | VENOUS | [place], [place] | [address] | | | | | DUPLEX LOWER | [address] | Physician's | | | | | EXTREMITY | Phone: | Pavilion | | | | | BILAT COMP | [phone] | [place], [place] | | | | | | Fax: | [address] | | | | | | [phone] | Phone: | | | | | | | [phone] | | | | | | | Fax: | | | | | | | [phone] | +--------+--------+ + + + + Reason [...] edema | | 2015 | Visit | [facility] [address] | [address] | (Primary Dx) | | | | Ave Mailcode: CH8N | [place], [place] | | | | | [facility] | [address] | | | | | and Healing, | [phone] | | | | | [facility] | | | | | | Floor [place], [place] | | | | | | [address] | | | | | | [phone] | | | +--------+---------+ + + + [...] every six hours. Take 1 tablet by [facility] every 8 hours for 2 days. [...] 2) Contact our office or present to [facility] Emergency Department for severe headache [...] | | + +---------+ + + | [facility] DEPARTMENT OF | | | | | RADIOLOGY | | | | + +---------+ + + documented in this encounter Visit Diagnoses + + | Diagnosis | + + | Bilateral leg edema - Primary Edema | + + documented in this encounter
--- OUTSIDE RECORDS SUMMARY | ~2019-06-06 | XMS | Encounter Summary ---
Demographics + + + | Address | [address] | | | [place] [address] | + + + | Home Phone [...] Team Providers + +------+ + | Care Boom Stick Worker Name | Role | Phone | [...] MRI Results | | 2017 | | [facility] [address] | [address] | | | | | Ave Mailcode: CH8N | [place], [place] | | | | | [facility] | [address] | | | | | and Clarisse, | [phone] | | | | | [facility] | | | | | | [place], [place] | | | | | | [address] | | | | | | [phone] | | | +--------+ + + + [...]
--- OUTSIDE RECORDS SUMMARY | ~2019-06-06 | XMS | Encounter Summary ---
Demographics + + + | Address | [address] | | | [place] [address] | + + + | Home Phone [...] Team Providers + +------+ + | Care Medical Services Manager Name | Role | Phone | [...] Board | | 2015 | on | [facility] [address] | ,PhD [address] | Recommendation | | | | Yany Mailcode: CH8N | [facility] | | | | | [facility] | [place], [place] | | | | | and Clarisse, | [address] | | | | | [facility] | [phone] | | | | | [place], [place] | | | | | | [address] | | | | | | [phone] | | | +--------+ + + + [...]
--- OUTSIDE RECORDS SUMMARY | ~2019-06-06 | XMS | Encounter Summary ---
Demographics + + + | Address | [address] | | | [place] [address] | + + + | Home Phone [...] Providers + +------+ + | Care Waste Cotton Cleaner Name | Role | Phone | [...] Rd | | | | | | [place], [place] | | | | | | [address] | | | +--------+ + + + [...]
--- OUTSIDE RECORDS SUMMARY | ~2019-06-06 | XMS | Encounter Summary ---
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 | | | | [address] | | FS, ??? 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 [...] at 9:30am. We are located at the [facility], [address] [place] [address]. Address: [address] [place] [address]. Please call [phone] for questions o r concerns. 2. Follow up with your PCP to review your hospital course and medication changes. Please call to schedule this appointment. Future Appointments Date & Time Provider Department Dept Phone Center 11/09/2014 9:30 AM Bart Graham Neurosurgery at [facility] [phone] Neurosurgery Discharging Physician: JAIME HOWARD MD Attending [...] 14 | | | | bedtime. 2 adta=[phone] | | | | | | | [...] issues Jaime Howard MD Neurosurgery Resident Pager #[phone] MEDICATIONS Current Facility-Administered Medications Medication acetaminophen (TYLENOL) [...] -Pain control. -Keep incision clean and dry. KAEREN YOUNG MD Neurological Surgery, PGY-2 I have seen and examined the patient. I agree with the exam and plan as described in the r esident note. Sachin Malhotra MD - 7:35 PM PDT 7NSICU ATTENDING NEUROINTENSIVIST PROGRESS NOTE Team Pager: [phone] Attendin -------- EVENING NOTE -------- Date:10/25/2014 Critical [...] s/s of infection # Bipolar: Restart Wellbutrin, Still Pond, Duloxetine, Ziprasidone, and lorazepam (prn) # Lines: CVL (subclavian), matos, PIV - d/c matos Relevant Risks: This patient is currently at risk for the following: cerebral edema, hydroc ephalus, intracerebral hemorrhage and seizure; central line associated blood stream infectio n, DVT/Pulmonary embolism, ICU delirium and UTI. I spent 30 minutes actively involved in the care and management of this patient. Sachin Ward MD [facility] DEPARTMENT: [id number] ICU NEURO Place of Service:- Inpatient Date of Service: 10/25/2014 CSN: [id number] Suggested Modifier: None Suggested CPT: TO TILE GRADER RELEVANT DATA: Last Vitals: BP 112/66 | [...] charting, and discussion with treatment decision maker. [facility] DEPARTMENT: [id number] CRITICAL CARE Place of Service: Inpatient Date of Service: 10/25/2014 CSN: [id number] Suggested Level of Care: 29131 - CRITICAL CARE, 1ST HOUR EACH DAY [...] MRI -dexamethasone 4mg q6--slow taper ordered. -medication TESTING DIRECTOR: Geodon 160mg qHS, tramadol 50mg q6hr prn [...] for NV - Diet: Regular diet - [facility] bowel protocol - MIVF: Normal [...] ove assessment and plan. TORITO GONG, VALENTINA [facility] DEPARTMENT: [id number] ICU NEURO Place of Service:- Inpatient Date of Service: 10/25/2014 CSN: [id number] Suggested Modifier: None Suggested CPT: TO TILE GRADER Kareen Martinez MD - 2014 6:49 PM [...] - 2014 6:19 PM PDT 7NSICU ATTENDING PRECINCT POLICE CAPTAIN DAILY PROGRESS NOTE Team Pager: [phone] Attendin Date:2014 Critical Care Attending Physician: SACHIN [...] asthma Home meds: Ziprasidone, Tramadol, Topiramate, Lorazepam, Still Pond, Lansoprazole, Dilaudid, Celecoxib, g abapentin, duloxetine, bupropion, [...] opioids: continue gabapentin # Bipolar: Restart Wellbutrin, Still Pond, Duloxetine, Ziprasidone, and lorazepam (prn) # Lines: arterial line, CVL (subclavian), matos, PIV Relevant Risks: This patient is currently at risk for the following: cerebral edema, hy drocephalus, intracerebral hemorrhage and seizure; central line associated blood stream infe ction, DVT/Pulmonary embolism, ICU delirium and UTI. I spent 65 minutes actively involved in the care and management of this patient. Sachin Ward MD [facility] DEPARTMENT: [id number] ICU NEURO Place of Service:- Inpatient Date of Service: erEDICAL RECORD NUMBER [id number] CSN: [id number] Suggested Modifier: None Suggested CPT: TO TILE GRADER RELEVANT DATA: Last Vitals: BP 139/80 | [...] CHENG | [address] | [place], [place] | | | MAL[facility] NELSON [facility] CARE | [address] | [address] | | | TESTS | | | [...] SALLYAM | [address] | [place], [place] | | | LESLIE POINT OF CARE | [address] | [address] | | | TESTS | | | [...] + + + + + | [facility] | [address] | [place] [address] | | | SERVICES, CORE | KAYLEN [...] | | | LABORATORY | | | EGYPTIAN | | | SERVICES, | | | [...] recommended by the | [facility] | | National Kidney Disease Education Program. [...] + + + | [facility] | [address] | [place] [address] | | | GABRIELLE MIRELES | KAYLEN [...] - 99 mg/dL | [facility] - | | | GLUCOSE, | | [...] SHELLEYQUAM | [address] | [place], [place] | | | [facility]IE POINT OF CARE | [address] | [address] | | | TESTS | | | [...] CHENG | [address] | [place], [place] | | | MALINA NELSON OF BEL | [facility] | [address] | | | TESTS | | | [...] - MARQUAM | [address] | [place], [place] | | | [facility]LIE POINT OF CARE | [facility] | [address] | | | TESTS | | | [...] + + + | [facility] | [address] | [place] [address] | | | CHI, CORE | KAYLEN [...] | | | LABORATORY | | | EGYPTIAN | | | SERVICES, | | | [...] + + + | [facility] | [address] | [place] [address] | | | SERVICES, CORE | KAYLEN [...] - 99 mg/dL | [facility] - | | | GLUCOSE, | | [...] CHENG | [address] | [place], [place] | | | MALINA NELSON OF BEL | [address] | [address] | | | TESTS | | | [...] MARQUAM | [address] | [place], [place] | | | MAL[facility] NELSON OF CARE | [address] | [address] | | | TESTS | | | [...] MARQUAM | [address] | [place], [place] | | | [facility]SON OF CARE | [address] | [address] | | | TESTS | | | [...] CHENG | [address] | [place], [place] | | | MALINA NELSON OF BEL | [address] | [address] | | | TESTS | | | | + + + + + OPERATION RECORD (10/26/2014 9:22 AM PDT) + + | Transcriptions | + + | Bart Graham MD - 2014 10:30 PM PDT Date of Service: 2014 Attending | | Surgeon: Bart Graham MD Vocational Teacher(s): Brady Conroy MD, | | PhD. Preoperative [...] she was placed in the Bhagat head animal keeper and flipped into | | the prone position on chest rolls. Her arms were tucked at her sides and all pressure | | points were carefully padded. We then registered the [employer] frameless stereotactic | | navigation system with [...] curette with Kerrison punches. We used a Bedford dissector to | | carefully dissect the [...] the subarachnoid space. We then used a Bowie | | elevator and opened the dura [...] were removed. She was removed from the Floyd head animal keeper | | and flipped into the supine [...] 2014 | | 18:04:22DT: 2014 22:30:30Job #: [id number] | + + CAPILLARY BLOOD GLUCOSE (NO [...] MARQUAM | [address] | [place], [place] | | | [facility] CARE | [address] | [address] | | | TESTS | | | [...] CHENG | [address] | [place], [place] | | | [facility] CARE | [address] | [address] | | | TESTS | | | [...] [facility] | [address] | [place] [address] | | | SERVICES, CORE | PARK [...] | | | LABORATORY | | | EGYPTIAN | | | SERVICES, | | | [...] + + + + + | [facility] | [address] [facility] | [place] [address] | | | SERVICES, GABRIELLE | KAYLEN [...] MARQUAM | [address] | [place], [place] | | | MALINA NELSON OF BEL | [facility] | [address] | | | TESTS | | | [...] - 99 mg/dL | [facility] - | | | GLUCOSE, | | [...] MARQUAM | [address] | [place], [place] | | | [facility] OF [facility] | [address] | [address] | | | TESTS | | | [...] CHENG | [address] | [place], [place] | | | MAL[facility] NELSON OF CARE | [facility] | [address] | | | TESTS | | | [...] - MARQUAM | [address] | [place], [place] | | | LESLIE POINT OF CARE | [address] | [address] | | | TESTS | | | [...] | + + + + + | [facility] | [address] | [place] [address] | | | SERVICES, SPECIAL | PARK [...] + + + + + | [facility] | [address] | [place] [address] | | | SERVICES, CORE | KAYLEN [...] | | | LABORATORY | | | EGYPTIAN | | | SERVICES, | | | [...] the MDRD equation recommended by the | [facility] | | National Kidney Disease Education Program. [...] + + + + + | [facility] | [address] | [place] [address] | | | CHI, GABRIELLE | KAYLEN [...] | | | | | | contrast. [id number] | | | | | | reformatted [...] + + + | X-RAY | EXAM: [place] CHEST 1 VIEW | | | | [...] [facility] | [address] | [place] [address] | | | SERVICES, CORE | PARK [...] | | | LABORATORY | | | EGYPTIAN | | | SERVICES, | | | [...] + + + | [facility] | [address] [facility] [address] | [place] [address] | | | GABRIELLE MIRELES | KAYLEN [...] + + + + + | [facility] | [address] | [place] [address] | | | SERVICES, CORE | KAYLEN [...] [facility] | [address] | [place] [address] | | | SERVICES, GABRIELLE | KAYLEN [...] + + + | [facility] | [address] | [place] [address] | | | SERVICES, CORE | PARK [...] [facility] | [address] | [place], [place] | | | MALINA NELSON OF BEL | [address] | [address] | | | TESTS | | | [...] MARQUAM | [address] | [place], [place] | | | LESLIE POINT OF CARE | [facility] | [address] | | | TESTS | | | [...] + + + | MYRIAM CHENG | [address] | [place], [place] | | | [facility] OF [facility] | [address] | [address] | | | TESTS | | | [...] MARLIZAM | [address] | [place], [place] | | | MALINA NELSON OF BEL | [address] | [address] | | | TESTS | | | [...] MARLIZAM | [address] | [place], [place] | | | MALINA NELSON OF CARE | [facility] | [address] | | | TESTS | | | [...] CHENG | [address] | [place], [place] | | | [facility] CARE | [address] | [address] | | | TESTS | | | [...] SALLYAM | [address] | [place], [place] | | | [facility] CARE | [address] | [address] | | | TESTS | | | [...] + + + | MYRIAM CHENG | [address] | [place], [place] | | | [facility] | [address] | [address] | | | TESTS | | | [...] [facility] | [address] | [place] [address] | | | SERVICES, | [address] [...] + + + + + | [facility] | [address] | [place] [address] | | | SERVICES, | [address] | | | | TRANSFUSION MEDICINE | | | | + + + + + INTRAOPERATIVE NEURO MONITORING (2014) + + + | Narrative | Performed At | + + + | Patient Name: Mendoza Villegas Date of : 1970 Medical | | | Record Number: [id number] Date of Test: 2014 Place of | | | Service: IP Intra Op (54) [id number] - [id number] INTRAOPERATIVE NEURO | | | MONITORING History: [...] of | | | Neurology Suggested CPT: 66929 - IOM Remote x 3 hr(s) 14983 - | | | Short Latency EP's Upper AND Lower extremities 60290 - Central Motor | | | EP's Upper AND Lower extremities 44048 - EMG Cranial Bilateral - IOM | | | 03903 - Neuromuscular Junction Test Suggested Diagnosis: 237.5 [...] + + + + + | [facility] | [address] | [place] [address] | | | PATHOLOGY | [address] [...]
--- OUTSIDE RECORDS SUMMARY | ~2019-06-06 | XMS | Encounter Summary ---
Demographics + + + | Address | [address] | | | [place] [address] | + + + | Home Phone [...] Team Providers + +------+ + | Care Firmware Manager Name | Role | Phone | [...] | | | W CONTRAST - | [place], [place] | [address] | | | | | FRAMELESS | [address] | [place] | | | | | STEREOTATIC | Phone: | Research | | | | | ONLY AR MRI | [phone] | [place] | | | | | BRAIN | Fax: | [place], [place] | | | | | CONTRAST | [phone] | [address] | | | | | | | Phone: | | | | | | | [phone] | | | | | | | Fax: | | | | | | | [phone] | +--------+--------+ + + + + Reason [...] Order | | 2015 | on | [facility] [address] | [address] | | | | | Ave Mailcode: CH8N | [place], [place] | | | | | [facility] | [address] | | | | | and Healing, | [phone] | | | | | [facility] | | | | | | [place], [place] | | | | | | [address] | | | | | | [phone] | | | +--------+ + + + [...]
--- OUTSIDE RECORDS SUMMARY | ~2019-06-06 | XMS | Encounter Summary ---
Demographics + + + | Address | [address] | | | [place] [address] | + + + | Home Phone [...] Providers + +------+ + | Care Manager Bilingual Name | Role | Phone | + [...] [address] | [address] [place] | | | | | Yany Mailcode: CH8N | [place], [place] | | | | | [facility] | [address] | | | | | and Clarisse, | [phone] | | | | | [place] [address] | | | | | | [place], [place] | | | | | | [address] | | | | | | [phone] | | | +--------+ + + + [...]
--- OUTSIDE RECORDS SUMMARY | ~2019-06-06 | XMS | Encounter Summary ---
Demographics + + + | Address | [address] | | | [place] [address] | + + + | Home Phone [...] Team Providers + +------+ + | Care Configuration Management Consultant Name | Role | Phone [...] | | | | MRI BRAIN | [place], [place] | | | | | | TUMOR | [address] | | | | | | EVALUATION | Phone: | | | | | | WWO CONTRAST | [phone] | | | | | | | Fax: | | | | | | | [phone] | | +--------+--------+ + + + + [...] Radiology Order | | 2016 | | [facility] [address] | [address] | | | | | Yany Mailcode: CH8N | [place], [place] | | | | | [facility] | [address] | | | | | and Healing, | [phone] | | | | | [facility] | | | | | | Floor [place], [place] | | | | | | [address] | | | | | | [phone] | | | +--------+ + + + [...]
--- OUTSIDE RECORDS SUMMARY | ~2019-06-06 | XMS | Clinical Summary ---
Demographics + + + | Address | [address] | | | [place] [address] | + + + | Home Phone [...] Team Providers + +------+ + | Care Marketing Analytics Manager Name | Role | Phone | + +------+ + | Marixa Weber MD | PCP | | + +------+ + Source Comments LIZZJUAN is fully live on both [facility] and [facility] InPatient.[facility] & [facility] Allergies + + + + + + [...] | e | | | bedtime. 2 jfcx=425 | | | 14 | | | [...] 12/29/ | [id number] | | 3 - [id number]: Qty: | | Head | LIFESCIENCE | | 2017 | 91 / | | 1 on 2014 by Santos | | | S | | | /[id number] | | MD Bart at [facility] | | | | | | 70 | | REV LOC | | | | | | | + +------+-------+ +--------+--------+--------+ | Mesh Contour [id number] | | N/A: | [employer] [place] | | | 04.503 | | Malleable Matrix Neuro - | | Head | | | | .083 / | | [id number]: Qty: 1 on | | | | | | / | | 2014 by Bart Graham, | | | | | | | | MD at [facility] INPATIENT REV LOC | | | | | | | + +------+-------+ +--------+--------+--------+ | Screw 04mm Ti Self-Drill | | N/A: | [facility] | | | 04.503 | | Matrix Neuro - | | Head | | | | .104.0 | | [id number]: Qty: 6 on | | | | | | 1 / / | | 2014 by Bart Graham, | | | | | | | | MD at [facility] INPATIENT REV LOC | | | | [...] | x | 008-Pr | 8 | [address] | | | | STATE | | esent | | [place], | | | | | | | | [place] | | | | | | | | [address] | | + +--------+ +--------+ + +------+ [...] meredith | | | 1 (Home) | [address] | + +--------+ +--------+ + + Advance [...]
--- OUTSIDE RECORDS SUMMARY | ~2019-06-06 | XMS | Encounter Summary ---
Demographics + + + | Address | [address] | | | [place] [address] | + + + | Home Phone [...] Team Providers + +------+ + | Care Yolk Spray Drier Name | Role | Phone | + +------+ + | Ashwini Ochoa NP | PCP | | + +------+ + Encounter Details +--------+ + + + + | Date | Type | Department | Care Team | Description | +--------+ + + + + | 01/29/ | Document-Sc | Health Information | Unknown . | | | 2017 | anned | Services 1461 | | | | | | [address] | | | | | | Mailcode: OP17A | | | | | | [facility] | | | | | | [place], [place] | | | | | | [address] | | | | | | [phone] | | | +--------+ + + + [...]
--- OUTSIDE RECORDS SUMMARY | ~2019-06-06 | XMS | Encounter Summary ---
Demographics + + + | Address | [address] | | | [place] [address] | + + + | Home Phone [...] Team Providers + +------+ + | Care Decorating And Assembly Supervisor Name | Role | Phone | + +------+ + | Ashwini Ochoa NP | PCP | | + +------+ + Encounter Details +--------+ + + + + | Date | Type | Department | Care Team | Description | +--------+ + + + + | 06/07/ | Document-Sc | Health Information | Unknown . | | | 2013 | anned | Services 5114 | | | | | | [address] | | | | | | Mailcode: OP17A | | | | | | [facility] | | | | | | [place], [place] | | | | | | [address] | | | | | | [phone] | | | +--------+ + + + [...]
--- OUTSIDE RECORDS SUMMARY | ~2019-06-06 | XMS | Encounter Summary ---
Demographics + + + | Address | [address] | | | [place] [address] | + + + | Home Phone [...] Team Providers + +------+ + | Care Real Estate Leasing Manager Name | Role | Phone | [...] | | | | MRI BRAIN | [place], [place] | | | | | | TUMOR | [address] | | | | | | EVALUATION | Phone: | | | | | | W[facility] CONTRAST | [phone] | | | | | | | Fax: | | | | | | | [phone] | | +--------+--------+ + + + + [...] Radiology Order | | 2016 | | [facility] [address] | [address] | | | | | Yany Mailcode: CH8N | [place], [place] | | | | | [facility] | [address] | | | | | and Healing, | [phone] | | | | | [facility] | | | | | | Floor [place], [place] | | | | | | [address] | | | | | | [phone] | | | +--------+ + + + [...]
--- OUTSIDE RECORDS SUMMARY | ~2019-06-06 | XMS | Encounter Summary ---
Demographics + + + | Address | [address] | | | [place] [address] | + + + | Home Phone [...] Team Providers + +------+ + | Care Webmethods Architect Name | Role | Phone | [...] Board | | 2015 | on | [facility] [address] | ,PhD [address] | Recommendation | | | | Yany Mailcode: CH8N | [facility] | | | | | [facility] | [place], [place] | | | | | and Clarisse, | [address] | | | | | [facility] | [phone] | | | | | [place], [place] | | | | | | [address] | | | | | | [phone] | | | +--------+ + + + [...]
--- OUTSIDE RECORDS SUMMARY | ~2019-06-06 | XMS | Encounter Summary ---
Demographics + + + | Address | [address] | | | [place] [address] | + + + | Home Phone [...] Team Providers + +------+ + | Care Fibreglass Lay Up Worker Name | Role | Phone | [...] data | | 2015 | IP | [address] | [address] | completion) | | | | [address] | [place], [place] | | | | | [place] | [address] | | | | | [address] | [phone] | | | | | | | [...]
--- OUTSIDE RECORDS SUMMARY | ~2019-06-06 | XMS | Encounter Summary ---
Demographics + + + | Address | [address] | | | [place] [address] | + + + | Home Phone [...] Team Providers + +------+ + | Care Prop Making Supervisor Name | Role | Phone | [...] | | | | | [place], | | | | | | [place] [address] | | | +--------+--------+ + + + [...]
--- OUTSIDE RECORDS SUMMARY | ~2019-06-06 | XMS | Encounter Summary ---
Demographics + + + | Address | [address] | | | [place] [address] | + + + | Home Phone | | + + + | Preferred Language | Unknown | + + + | Marital Status | | + + + | Lutheran Affiliation | LDS | + + + [...] Team Providers + +------+ + | Care Counter Roller Name | Role | Phone | + [...] Phone Call | | 2017 | | [facility] [address] | [address] | | | | | Yany Mailcode: CH8N | [place], [place] | | | | | [facility] | [address] | | | | | and Clar[place], | [phone] | | | | | [facility] | | | | | | [place], [place] | | | | | | [address] | | | | | | [phone] | | | +--------+ + + + [...]
--- OUTSIDE RECORDS SUMMARY | ~2019-06-06 | XMS | Encounter Summary ---
Demographics + + + | Address | [address] | | | [place] [address] | + + + | Home Phone [...] Team Providers + +------+ + | Care Food Service Sales Representatives Name | Role | Phone | + [...] | | | | | Stay [address] [facility] | | | | | | [address] | | | | | | Mailcode: UHN65 | | | | | | Colleen Mobley | | | | | | [address] [place], [place] | | | | | | [address] | | | | | | [phone] | | | +--------+ + + + [...] mg by mouth once daily in the [facility] charles. TRAMADOL 50 MG TABLET Take [...] by mouth once daily at bedtime. 2 cfds=554 mg CHILDREN'S MULTI-VIT GUMMIES ORAL Take by [...] perfume, lotions or powder. Remove any nail chadian from at least one fingernail. Do not [...] your procedure. Surgery Check in Locations Admitting [facility] Surgery Check in Time: Someone from your surgeon's office or [facility] will provide you with information regarding [...] it is after office hours, call the [facility] mac operator at [phone] and ask them to page your doc tor. documented in this encounter Plan of Treatment Not on filedocumented as of this encounter Visit Diagnoses Not on filedocumented in this encounter"
--- OUTSIDE RECORDS SUMMARY | ~2019-06-06 | XMS | Encounter Summary ---
Demographics + + + | Address | [address] | | | [place] [address] | + + + | Home Phone | | + + + | Preferred Language | Unknown | + + + | Marital Status | | + + + | Rastafarian Affiliation | LDS | + + + [...] Team Providers + +------+ + | Care Dish Machine Operator Name | Role | Phone | + +------+ + | Ashwini Ochoa NP | PCP | | + +------+ + Encounter Details +--------+ + + + + | Date | Type | Department | Care Team | Description | +--------+ + + + + | 11/10/ | Telephone | Neurosurgery at | Shar [place], | | | 2014 | | [facility] [address] | [address] | | | | | Yany Mailcode: CH8N | [facility] | | | | | [facility] | [place], [place] | | | | | and [place], | [address] | | | | | [facility] | [phone] | | | | | Floor [place], [place] | | | | | | [address] | | | | | | [phone] | | | +--------+ + + + [...]
--- OUTSIDE RECORDS SUMMARY | ~2019-06-06 | XMS | Encounter Summary ---
Demographics + + + | Address | [address] | | | [place] [address] | + + + | Home Phone [...] Team Providers + +------+ + | Care Herbarium Curator Name | Role | Phone | + [...] Karis | | | | | | [place], [place] | | | | | | [address] | | | +--------+ + + + [...]
--- OUTSIDE RECORDS SUMMARY | ~2019-06-06 | XMS | Encounter Summary ---
Demographics + + + | Address | [address] | | | [place] [address] | + + + | Home Phone [...] Team Providers + +------+ + | Care Locomotive Mechanic Name | Role | Phone | [...] | | | | | VENOUS | [place], [place] | [address] | | | | | D[address]LEX LOWER | [address] | Physician's | | | | | EXTREMITY | Phone: | Pavilion | | | | | BILAT COMP | [phone] | [facility] [place] | | | | | | Fax: | [address] | | | | | | [phone] | Phone: | | | | | | | [phone] | | | | | | | Fax: | | | | | | | [phone] | +--------+--------+ + + + + Reason [...] | | | | | VENOUS | [place], [place] | [address] | | | | | DUPLEX LOWER | [address] | Physician's | | | | | EXTREMITY | Phone: | Pavilion | | | | | BILAT COMP | [phone] | [place], [place] | | | | | | Fax: | [address] | | | | | | [phone] | Phone: | | | | | | | [phone] | | | | | | | Fax: | | | | | | | [phone] | +--------+--------+ + + + + Encounter [...] | | | | | | Pavilion [place], | | | | | | [place] [address] | | | | | | [phone] | | | +--------+ + + + [...] 14 | | | | bedtime. 2 vraq=[id number] | | | | | | | [...] | | + +---------+ + + | [facility] DEPARTMENT OF | | | | | RADIOLOGY | | | | + +---------+ + + documented in this encounter Visit Diagnoses + + | Diagnosis | + + | Bilateral leg edema Edema | + + documented in this encounter"
--- OUTSIDE RECORDS SUMMARY | ~2019-06-06 | XMS | Encounter Summary ---
Demographics + + + | Address | [address] | | | [place] [address] | + + + | Home Phone [...] Team Providers + +------+ + | Care Community Educator Name | Role | Phone | [...] Rd | | | | | | [place], [place] | | | | | | [address] | | | +--------+ + + + [...]
--- OUTSIDE RECORDS SUMMARY | ~2019-06-06 | XMS | Encounter Summary ---
Demographics + + + | Address | [address] | | | [place] [address] | + + + | Home Phone [...] Team Providers + +------+ + | Care Finisher Denture Name | Role | Phone | + [...] Rd | | | | | | [place], [place] | | | | | | [address] | | | +--------+ + + + [...]
--- OUTSIDE RECORDS SUMMARY | ~2019-06-06 | XMS | Encounter Summary ---
Demographics + + + | Address | [address] | | | [place] [address] | + + + | Home Phone [...] Providers + +------+ + | Care Air Conditioning Specialist Name | Role | Phone | + +------+ + | Ashwini Ochoa NP | PCP | | + +------+ + Encounter Details +--------+ + + + + | Date | Type | Department | Care Team | Description | +--------+ + + + + | 06/07/ | Document-Sc | Health Information | Unknown . | | | 2013 | anned | Services [id number] | | | | | | [address] | | | | | | Mailcode: OP17A | | | | | | [facility] | | | | | | [place], [place] | | | | | | [address] | | | | | | [phone] | | | +--------+ + + + [...]
--- OUTSIDE RECORDS SUMMARY | ~2019-06-06 | XMS | Encounter Summary ---
Demographics + + + | Address | [address] | | | [place] [address] | + + + | Home Phone [...] Team Providers + +------+ + | Care Accountancy Professor Name | Role | Phone | [...] | | | | | [place]is [place], | | | | | | [place] [address] | | | +--------+ + + + [...]
--- OUTSIDE RECORDS SUMMARY | ~2019-06-06 | XMS | Encounter Summary ---
Demographics + + + | Address | [address] | | | [place] [address] | + + + | Home Phone [...] Team Providers + +------+ + | Care Suit Attendant Name | Role | Phone | [...] Rd | | | | | | [place], [place] | | | | | | [address] | | | +--------+ + + + [...]
--- OUTSIDE RECORDS SUMMARY | ~2019-06-06 | XMS | Encounter Summary ---
Demographics + + + | Address | [address] | | | [place] [address] | + + + | Home Phone [...] Providers + +------+ + | Care Business Services Representative Name | Role | Phone | [...] | | | | [facility] | [place] [address] | | | | | | a (HCC) | [address] | | | | | | Procedures | [place] | | | | | | MRI BRAIN | [place], [place] | | | | | | TUMOR | [address] | | | | | | EVALUATION | Phone: | | | | | | WWO CONTRAST | [phone] | | | | | | | Fax: | | | | | | | [phone] | | +--------+--------+ + + + + [...] (HCC) | | 2015 | Visit | [facility] [address] | [address] | (Primary Dx) | | | | Ave Mailcode: CH8N | [place], [place] | | | | | [facility] | [address] | | | | | and Healing, | [phone] | | | | | [facility] | | | | | | Floor [place], [place] | | | | | | [address] | | | | | | [phone] | | | +--------+---------+ + + + [...] reports that she is doing well ov [facility]. She denies headaches currently. She [...] every six hours. Take 1 tablet by [facility] every 8 hours for [...] also contact us to fax referral for [facility] in [facility]. 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
--- OUTSIDE RECORDS SUMMARY | ~2019-06-06 | XMS | Encounter Summary ---
Demographics + + + | Address | [address] | | | [place] [address] | + + + | Home Phone [...] Team Providers + +------+ + | Care Pilot Manager Name | Role | Phone | [...] | | | Procedures | [facility] | [facility] | | | | | CONSULT TO | Hospital | Rd Mailcode: | | | | | [facility] | Road | [facility] | | | | | GENETICS | [place], [place] | [place], [place] | | | | | | [address] | [address] | | | | | | Phone: | Phone: | | | | | | [phone] | [phone] | | | | | | Fax: | Fax: | | | | | | [phone] | [phone] | +--------+--------+ + + + + Diagnostic [...] | | | | | VENOUS | [place], [place] | [address] | | | | | D[address] LOWER | [address] | Physician's | | | | | EXTREMITY | Phone: | Pavilion | | | | | BILAT COMP | [phone] | [place], [place] | | | | | | Fax: | [address] | | | | | | [phone] | Phone: | | | | | | | [phone] | | | | | | | Fax: | | | | | | | [phone] | +--------+--------+ + + + + Reason [...] edema | | 2015 | Visit | [facility] [address] | [address] | (Primary Dx) | | | | Ave Mailcode: CH8N | [place], [place] | | | | | [facility] | [address] | | | | | and Healing, | [phone] | | | | | [facility] | | | | | | Floor [place], [place] | | | | | | [address] | | | | | | [phone] | | | +--------+---------+ + + + [...] every six hours. Take [facility] tablet by [facility] hours for 2 days. [...] 2) Contact our office or present to [facility] Emergency Department for severe headache not rel [...] attending physician, who also personally evaluated the kaern jackson. Addendum: BLE venous duplex ultrasound negative [...] | | + +---------+ + + | [facility] DEPARTMENT OF | | | | | RADIOLOGY | | | | + +---------+ + + documented in this encounter Visit Diagnoses + + | Diagnosis | + + | Bilateral leg edema - Primary Edema | + + documented in this encounter
--- OUTSIDE RECORDS SUMMARY | ~2019-06-06 | XMS | Encounter Summary ---
Demographics + + + | Address | [address] | | | [place] [address] | + + + | Home Phone [...] Team Providers + +------+ + | Care Plasterer Spot Name | Role | Phone | + [...] Refill Request | | 2014 | | [facility] [address] | [address] | | | | | Yany Mailcode: CH8N | [place], [place] | | | | | [facility] | [address] | | | | | and [place], | [phone] | | | | | [facility] | | | | | | [place], [place] | | | | | | [address] | | | | | | [phone] | | | +--------+ + + + [...]
--- OUTSIDE RECORDS SUMMARY | 2019-06-06 20:08 | XMS ---
PreManage Notification: MAGALIS BLACKMAN Security Plastics Heat Welder Events No recent Security Events currently on file CRITERIA MET - [facility] - Has Care Guidelines - PDMP - [facility] - 2 Visits in 30 Days CARE PROVIDERS FAYE DELGADO Internal Medicine 10/18/2018-Alisha DORAN PHONE: [phone] FAYE DELGADO Primary Care Current PHONE: Unknown Nathanael Jackson MD PHONE: Unknown Guidelines Source: [facility] Mobile Guidelines Date: 05/22/2019 Care Coordination: Mental health services provided by [employer].\T\nbsp; Please contact [facility] with mental health concerns.\T\nbsp; Nelly/Tynan: [phone]\T\ nbsp; Inessa: [phone]. Care History Medical/Surgical 10/18/2018 [facility] - Patient is currently established with [facility]. If patient is seen in the ED during business hours. Please contact CHWs at [facility]. Care Recommendation: This patient has had [...] care. E.D. VISIT COUNT (12 MO.) [address] TOTAL 7 NOTE: Visits indicate total known visits. 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 - Latex allergy status 05/24/2019 20:31 [facility] [place] TYPE: Emergency COMPLAINT: - ABDOMINAL SWELLING AND BLEEDING DIAGNOSES: - Unspecified abdominal pain - Other buttermilk drier operator (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 - Essential (primary) hypertension - Bipolar disorder, unspecified - Unspecified asthma, uncomplicated - Allergy status to analgesic agent status - Allergy status to narcotic agent status - Sleep apnea, unspecified - Latex allergy status - Other nonmedicinal substance allergy status - Allergy status to oth drug/meds/biol subst status - Anemia, unspecified - Nontraumatic hematoma of soft tissue 05/21/2019 19:47 [facility] [place] TYPE: Emergency DIAGNOSES: - ABD PAIN 05/20/2019 22:32 [facility] [place] TYPE: Emergency COMPLAINT: - ABD PAIN DIAGNOSES: - 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
[2019-06-06] MEDS ORDERED: NAPROXEN375 MG PO (22:12)
[2019-06-06] MEDS ORDERED: TRAMADOL HCL50 MG PO (22:12)
[2019-06-06] MEDS ORDERED: CRUTCH1 EACH (22:13)
== END 2019-06-06 22:28 | disposition home or self-care (01) ==
LOC: ED 20:04
DX: M25.561 Pain in right knee (principal); I10 Essential (primary) hypertension; F31.9 Bipolar disorder, unspecified; J45.909 Unspecified asthma, uncomplicated; G47.30 Sleep apnea, unspecified; Z88.8 Allergy status to other drugs, medicaments and biological substances; Z88.6 Allergy status to analgesic agent; Z88.5 Allergy status to narcotic agent; Z91.040 Latex allergy status; Z79.899 Other long term (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
CPT/HCPCS: 73560; 99283-25

== ENCOUNTER 2019-08-09 19:16 | Emergency (ER) | payer BC ==
[~2019-08-09] VITALS: Ht 152.4 cm; Wt 102.1 kg
--- OUTSIDE RECORDS SUMMARY | ~2019-08-09 | XMS | Encounter Summary ---
Demographics + + + | Address | [address] | | | [place] [address] | + + + | Home Phone | | + + + | Preferred Language | Unknown | + + + | Marital Status | | + + + | Christian Affiliation | 1027 | + + + | Race | Unknown | + + + | Ethnic Group | Unknown | + + + Author + + + | Author | [facility] | | | and [place] | + + + | Organization | [facility] | | | and [...] Team Providers + +------+ + | Care Crab Butcher Name | Role | Phone | + +------+ + PCP | Unavailable | + +------+ + Encounter Details +--------+ + + + + | Date | Type | Department | Care Team | Description | +--------+ + + + + | 05/10/ | Hospital | [facility] | Ernestina Strange, | | | 1994 | Encounter | [facility] | [address] | | | | | GENERIC OP CONV DEPT | [place], [place] | | | | | [address] | [address] | | | | | [place], [place] | [phone] | | | | | [address] | | | | | | [phone] | | | +--------+ + + + [...]
--- OUTSIDE RECORDS SUMMARY | ~2019-08-09 | XMS | Encounter Summary ---
Demographics + + + | Address | [address] | | | [place] [address] | + + + | Home Phone | | + + + | Preferred Language | Unknown | + + + | Marital Status | | + + + | Cheondoism Affiliation | LDS | + + + | Race | White | + + + | Ethnic Group | Not or | + + + Author + + + | Author | [facility] | + + + | Organization | [facility] | + + + | [...] | + + +---------+ + | Zina Marquezing | ECON | Unknown | | + + +---------+ + Care Team Providers + +------+ + | Care Tube Handler Name | Role | Phone | + +------+ + | Ramesh Coombs DO | PCP | | + +------+ + Encounter Details +--------+ + + + + | Date | Type | Department | Care Team | Description | +--------+ + + + + | 02/04/ | Document-Sc | UNKNOWN DEPARTMENT | Unknown . | | | 2014 | anned | [address] | | | | | | [address] | | | | | | [place], [place] | | | | | | [address] | | | +--------+ + + + [...]
--- OUTSIDE RECORDS SUMMARY | ~2019-08-09 | XMS | Clinical Summary ---
Demographics + + + | Address | [address] | | | [place] [address] | + + + | Home Phone | | + + + | Preferred Language | Unknown | + + + | Marital Status | | + + + | Christian Affiliation | 1027 | + + + | Race | Unknown | + + + | Ethnic Group | Unknown | + + + Author + + + | Author | [facility] | | | and [place] | + + + | Organization | [facility] | | | [...] Team Providers + +------+ + | Care Assistant Chief Engineer Name | Role | Phone | + [...] 0 | | | Activ | | [id number]-[id number] | as needed (pain). | | | [...] recent travel history available. | + + Last Filed Vital Signs + [...] | | | Dtap/Tdap/Td (1 - | 3 | | | | Tdap) | | | | + + + + + | Cervical Cancer | | | | | Screening (Pap) | 2 | | | + + + + + | Breast Cancer | | | | | Screening | 7 | | | + + + + + | Vaccine: Influenza | | | | | (#1) | 9 | [...] +-------+--------+ +--------+-------+---------+------+ | BCBS | BCBS | [id number] | | | | PPO | | [...] | | al/Chris | | 1971 | [id number] | [address] [place], [place] | | | meredith | | | 1 (Home) | [address] | + +--------+ +--------+ + + Advance Directives + + + + + | Type | Date Recorded | Patient | Explanation | | | | Vice President Sales And Marketing | | + + + + + | Power of | | | | | Surface Supervisor | | | | + + + + + | Advance | 06/01/2017 | | | | Directive | 9:25 AM | | | + + + + +"
--- OUTSIDE RECORDS SUMMARY | ~2019-08-09 | XMS | Encounter Summary ---
Demographics + + + | Address | [address] | | | [place] [address] | + + + | Home Phone | | + + + | Preferred Language | Unknown | + + + | Marital Status | | + + + | Samaritan Affiliation | LDS | + + + | Race | White | + + + | Ethnic Group | Not or | + + + Author + + + | Author | [facility] | + + + | Organization | [facility] | + + + | Address | [...] Team Providers + +------+ + | Care Garage Manager Name | Role | Phone | + +------+ + | Ashwini Ochoa NP | PCP | | + +------+ + Reason for Visit + + + | Reason | Comments | + + + | Refill Request | | + + + Encounter Details +--------+ + + + + | Date | Type | Department | Care Team | Description | +--------+ + + + + | 11/01/ | Telephone | Neurosurgery at | Bart Graham MD | Refill Request | | 2014 | | [facility] [address] | [address] | | | | | [address] Mailcode: CH8N | [place], [place] | | | | | [facility] | [address] | | | | | and [place], | [phone] | | | | | [facility] | | | | | | [place], [place] | | | | | | [address] | | | | | | [phone] | | | +--------+ + + + [...]
--- OUTSIDE RECORDS SUMMARY | ~2019-08-09 | XMS | Encounter Summary ---
Demographics + + + | Address | [address] | | | [place] [address] | + + + | Home Phone | | + + + | Preferred Language | Unknown | + + + | Marital Status | | + + + | Uatsdin Affiliation | LDS | + + + | Race | White | + + + | Ethnic Group | Not or | + + + Author + + + | Author | [facility] | + + + | Organization | [facility] | + + + | Address [...] Team Providers + +------+ + | Care Lacing String Cutter Name | Role | Phone | + +------+ + | Ashwini Ochoa NP | PCP | | + +------+ + Reason for Visit + + + | Reason | Comments | + + + | Tumor Board | | | Recommendation | | + + + Encounter Details +--------+ + + + + | Date | Type | Department | Care Team | Description | +--------+ + + + + | 11/02/ | Documentati | Neurosurgery at | Declan Gonsales, | Tumor Board | | 2015 | on | [facility] [address] | ,PhD [address] | Recommendation | | | | [address] Mailcode: CH8N | [facility] | | | | | [facility] | [place], [place] | | | | | and [place], | [address] | | | | | [facility] | [phone] | | | | | [place], [place] | | | | | | [address] | | | | | | [phone] | | | +--------+ + + + [...]
--- OUTSIDE RECORDS SUMMARY | ~2019-08-09 | XMS | Encounter Summary ---
Demographics + + + | Address | [address] | | | [place] [address] | + + + | Home Phone | | + + + | Preferred Language | Unknown | + + + | Marital Status | | + + + | Zoroastrian Affiliation | [id number] | + + + | Race | Unknown | + + + | Ethnic Group | Unknown | + + + Author + + + | Author | [facility] | | | and [place] | + + + | Organization | [facility] | | | [...] Team Providers + +------+ + | Care Organizational Effectiveness Consultant Name | Role | Phone | + +------+ + | Ronda Wade MD | PCP | | + +------+ + Reason for Visit + + + | Reason | Comments | + + + | New Patient | Abdominal pain/ diarrhea | + + + Evaluate & Treat (Routine) +--------+--------+ + + + + | Status | Reason | Specialty | Diagnoses / | Referred By | Referred To | | | | | Procedures | Contact | Contact | +--------+--------+ + + + + | Closed | | Gastroenterol | Diagnoses | Mauro, | Lanny, | | | | ogy | Abdominal | Ronda Noyola, | Shailesh Bender MD | | | | | pain | [employer] [address] | [address], | | | | | Diarrhea | [address] | [address] | | | | | Abdominal | [place], | [place], | | | | | pain, | [place] [address] | [place] [address] | | | | | diarrhea | Phone: | Phone: | | | | | Procedures | [phone] | [phone] | | | | | Office Visit | Fax: | Fax: | | | | | | [phone] | [phone] | +--------+--------+ + + + + Encounter Details +--------+---------+ + + + | Date | Type | Department | Care Team | Description | +--------+---------+ + + + | 05/05/ | Office | [facility] [place] | [place], | Diarrhea, | | 2017 | Visit | GASTROENTEROLOGY | FAISAL Sh[address]la [address] | unspecified type | | | | [address] [place] | [place], [address] | (Primary Dx); | | | | [address] [place], [place] | [place], [place] | Elevated cholesterol | | | | [address] | [address] | with elevated | | | | [phone] | | triglycerides; | | | | | | Obesity, morbid, BMI | | | | | | 40.0-49.9 ([facility]); | | | | | | Abdominal pain, | | | | | | epigastric; Bipolar | | | | | | affective disorder, | | | | | | remission status | | | | | | unspecified ([facility]); | | | | | | LAP-BAND surgery | | | | | | status; Incontinence | | | | | | of feces with fecal | | | | | | urgency; Family | | | | | | history of | | | | | | autoimmune disorder | +--------+---------+ + + + Social History + +-------+ +--------+------+ | Tobacco Use | Types | Packs/Day | Years | Date | | | | | Used | | + +-------+ +--------+------+ | Light Tobacco Smoker | | | | | + +-------+ +--------+------+ + +---+---+---+ | Smokeless Tobacco: | [...] + + + | Blood Pressure | 142/80 | 05/05/2017 11:32 AM | | | | | PDT | | + + + + + | Pulse | 104 | 05/05/2017 11:32 AM | | | | | PDT | | + + + + + | Temperature | 36.4 C (97.5 F) | 05/05/2017 11:32 AM | | | | | PDT | | + + + + + | Respiratory Rate | 20 | 05/05/2017 11:32 AM | | | | | PDT | | + + + + + | Oxygen Saturation | 98% | 05/05/2017 11:32 AM | | | | | PDT | | + + + + + | Inhaled Oxygen | - | - | | | Concentration | | | | + + + + + | Weight | 100.2 kg (221 lb) | 05/05/2017 11:32 AM | | | | | PDT | | + + + + + | Height | 152.4 cm (5') | 05/05/2017 11:32 AM | | | | | PDT | | + + + + + | Body Mass Index | 43.16 | 05/05/2017 11:32 AM | | | | | PDT | | + + + + + documented in this encounter Patient Instructions Patient Instructions Gayla Leiva ARNP - 05/05/2017 11:00 AM PDT Uncertain Causes of Diarrhea (Adult) Diarrhea is when stools are loose and watery. This can be caused by: Viral infections Bacterial infections Food poisoning Parasites Irritable bowel syndrome (IBS) Inflammatory bowel diseases such as ulcerative colitis, Crohn's disease, and celiac dise ase Food intolerance, such as to lactose, the sugar found in milk and milk products Reaction to medicines like antibiotics, laxatives, cancer drugs, and antacids Along with diarrhea, you may also have: Abdominal pain and cramping Nausea and vomiting Loss of bowel control Fever and chills Bloody stools In some cases, antibiotics may help to treat diarrhea. You may have a stool sample test. Th is is done to see what is causing your diarrhea, and if antibiotics will help treat it. The results of a stool sample test may take up to 2 days. The healthcare provider may not give y ou antibiotics until he or she has the stool test results. Diarrhea can cause dehydration. This is the loss of too much water and other fluids from th e body. When this occurs, body fluid must be replaced. This can be done with oral rehydratio n solutions. Oral rehydration solutions are available at drugstores and grocery stores witho ut a prescription. Home care Follow all instructions given by your healthcare provider. Rest at home for the next 24 sammy rs, or until you feel better. Avoid caffeine, tobacco, and alcohol. These can make diarrhea, cramping, and pain worse. If taking medicines: Don t take piec-rft-lzpgvgu diarrhea or nausea medicines unless your healthcare provid er tells you to. You may use acetaminophen or NSAID medicines like ibuprofen or naproxen to reduce pain a nd fever. Don t use these if you have chronic liver or kidney disease, or ever had a stoma ch ulcer or gastrointestinalbleeding. Don't use NSAID medicines if you are already taking one for another condition (like arthritis) or are on daily aspirin therapy (such as for hear t disease or after a stroke). Talk with your healthcare provider first. If antibiotics were prescribed, be sure you take them until they are finished. Don t s top taking them even when you feel better. Antibiotics must be taken as a full course. To prevent the spread of illness: Remember that washing with soap and water and using alcohol-based ct technician is the best way to prevent the spread of infection. Clean the toilet after each use. Wash your hands before eating. Wash your hands before and after preparing food. Keep in mind that people with diarrhea or vomiting should not prepare food for others. Wash your hands after using cutting boards, countertops, and knives that have been in co ntact with raw foods. Wash and then peel fruits and vegetables. Keep uncooked meats away from cooked and xfoqw-gf-vvd foods. Use a food thermometer when cooking. Cook poultry to at least 165F (74C). Cook groun d meat (beef, veal, pork, crews) to at least 160F (71C). Cook fresh beef, veal, crews, and pork to at least 145F (63C). Don t eat raw or undercooked eggs (poached or chapincito side up), poultry, meat, or unpast eurized milk and juices. Food and drinks The main goal while treating vomiting or diarrhea is to prevent dehydration. This is done b y taking small amounts of liquids often. Keep in mind that liquids are more important than food right now. Drink only small amounts of liquids at a time. Don t force yourself to eat, especially if you arehaving cramping, vomiting, or diar tammie. Don t eat large amounts at a time, even if you are hungry. If you eat, avoid fatty, greasy, spicy, or fried foods. Don t eat dairy foods or drink milk if you have diarrhea.These can makediarrhea wo rse. During the first 24 hours you can try: Oral rehydration solutions. Do not use sports drinks. They have too much sugar and not e nough electrolytes. Soft drinks without caffeine Bonnie ron Water (plain or flavored) Decaf tea or coffee Clear broth, consomm, or bouillon Gelatin, popsicles, or frozen fruit juice bars The second 24 hours, if you are feeling better, you can add: Hot cereal, plain toast, bread, rolls, or crackers Plain noodles, rice, mashed potatoes, chicken noodle soup, or rice soup Unsweetened canned fruit (no pineapple) Bananas As you recover: Limit fat intake to less than 15 grams per day. Don t eat margarine, butter, oils, may onnaise, sauces, gravies, fried foods, peanut butter, meat, poultry, or fish. Limit fiber. Don t eat raw or cooked vegetables, fresh fruits except bananas, or bran cereals. Limit caffeine and chocolate. Limit dairy. Don t use spices or seasonings except salt. Go back to your normal diet over time, as you feel better and your symptoms improve. If the symptoms come back, go back to a simple diet or clear liquids. Follow-up care Follow up with your healthcare provider, or as advised. If a stool sample was taken or cult ures were done, call the healthcare provider for the results as instructed. Call 911 Call 911 if you have any of these symptoms: Trouble breathing Confusion Extreme drowsiness or trouble walking Loss of consciousness Rapid heart rate Chest pain Stiff neck Seizure When to seek medical advice Call your healthcare provider right away if any of these occur: Abdominal pain that gets worse Constant lower right abdominal pain Continued vomiting and inability to keep liquids down Diarrhea more than 5 times a day Blood in vomit or stool Dark urine or no urine for 8 hours, dry mouth and tongue, tiredness, weakness, or dizzin ess Drowsiness New rash You don t get better in 2 to 3 days Fever of 100.4F (38C) or higher that doesn t get lower with medicine Date Last Reviewed: 08/04/201519992578-4544 [employer]. [address] [place] [address]. All [facility] reserved. This information is not intended as a substitute for professional medical care. Always follow your healthcare professional's instructions. documented in this encounter Progress Notes Fiona Ovalle RN - 05/05/2017 11:00 AM PDTFollowing office visit, scheduled pt for propofol colonoscopy with Dr. Car on 06/01/17 at 0930; pt has abdominal pain, diarrhea, BM I>40; reviewed medication, surg/med hx and allergies; reviewed bowel prep; rx to [facility]; info mailed to pt; completed case request order, notes to MA. Gayla Taylor ARNP - 05/05/2017 1 1:00 AM PDT PATIENT NAME: Mendoza Villegas : 1970: AGE: 46 y.o. REFERRED BY: Ronda Wade PRIMARY CARE: Ronda Wade MD Subjective: CHIEF COMPLAINT: Mendoza Villegas is a 46 y.o. female referred by Ronda Wade MD for evaluation and treatment of diarrhea. HISTORY OF PRESENT ILLNESS: Patient reports that for the last year she has been having trouble with diarrhea. She repor ts that diarrhea comes about 5-20 minutes after eating. Diarrhea is daily. She has about 6 B M per day. Notes occasional blood in stool. Last episode was about 6 months ago. She notes t hat certain foods than can worsen her diarrhea include whole milk and salad. Eating bread ca n help with diarrhea. She notes she is not supposed to eat bread due to borderline diabetes and lab band. She has had increased urgency with fecal incontinence. This has been an issue about 5 times in the last 6 months. She has tried Imodium in the past. It will work if she s tarts with 2 tabs and will need to take 2 more in the middle of the day. Psyllium can also w orsen diarrhea. Complains of constant abdominal pain with times of worsening intensity. Pain is worse right before needing to have BM. Describes increased tenderness and cramping. Also worse with pre ssure to that area. Pain is predominantly lower abdominal area. Abdominal pain does improve some with having BM. Hot pack can also help some. She notes that diarrhea is worse with anxi ety. She has needed to take her diazepam. She notes increased stress at home. She also stopped taking her bipolar medications about 4 months prior to diarrhea starting. She was taking [place], gabapentin, and 2 other mood stabilizers. She reports a 39 lb weight loss over the last year. She is unsure if this is due to diarrhe a or history of lap band. She did not notice this much diarrhea immediately following surger y. She reports abdominal pain since her "tummy tuck". She also has a history of Caesarian sect ion x2, and lap band. Has history of lap band in 2010. She reports she drinks protein shakes to help with protein intake. Stools studies negative for infection. No known family history of colon cancer. Has never had colonoscopy in the past. She does have issues with nocturnal diarrhea and anal leakage during sex. Half sister has been diagnosed with rheumatoid arthritis. MEDICAL, SURGICAL, AND PERSONAL HISTORY: Vitals: 05/05/17 1132 BP: 142/80 Pulse: 104 Resp: 20 Temp: 36.4 C (97.5 F) PainSc: 5 PainLoc: Abdomen Allergies Allergen Reactions Codeine Nausea Only Oxycodone Other (See Comments) Dizzy and vomitting Zinc Other (See Comments) Patient feels intoxicated Past Medical History: Diagnosis Date Arthritis of knee Asthma Bipolar disorder (HCC) Brain tumor (benign) (HCC) DDD (degenerative disc disease), cervical Degenerative joint disease (DJD) of lumbar spine Dysmenorrhea Fibromyalgia History of diabetes mellitus Hypertension Hypertriglyceridemia Memory problem short term Migraine headache without aura Morbid obesity (HCC) Pain in the abdomen PCOS (polycystic ovarian syndrome) Peripheral neuropathy (HCC) 2010 Restless leg syndrome Sleep apnea Sleep disturbance Tobacco use disorder Watery diarrhea X 1yr Past Surgical History: Procedure Laterality Date BRAIN TUMOR EXCISION 2015 at [facility] SECTION X2 KNEE SURGERY Left 11/20/2016 LAP BAND 2011 SINUS SURGERY SPINAL FUSION Cervical TONSILLECTOMY AND ADENOIDECTOMY tummy tuch 2013 Family History Problem Relation Age of Onset Hypertension Mother Diabetes Mother Heart attack Father Stroke Father Cancer Other Social History Social History Marital status: Spouse name: N/A Number of children: N/A Years of education: N/A Occupational History Not on file. Social History Main Topics Smoking status: Light Tobacco Smoker Smokeless tobacco: Never Used Alcohol use No Drug use: No Sexual activity: Not on file Other Topics Concern Not on file Social History Narrative No narrative on file Review Of Systems Constitutional: Complains of fevers and chills. Denies unintentional weight loss. Eye: Denies using glaucoma eye drops. Denies dry, burning, painful eyes. Respiratory:Complains of constant coughing and wheezing. Denies shortness of breath. Gastrointestinal:Complains of diarrhea, nausea, heartburn, and abdominal pain. Denies const ipation, bloody or black stools, hematemesis, vomiting, hemorrhoids, or dysphagia. Skin: Denies rashes. Neurological: Complains of memory difficulties, numbness or tingling, muscle weakness, par alysis of arms or legs, or frequent bothersome and headaches. Denies seizures. ENT: Denies hearing loss, hearing aids, hearing ringing or buzzing in ears, constantly runn y nose, nasal obstruction, hayfever, dentures, or hoarseness. Cardiovascular:Complains of chest pain. Denies heart palpitations or bothersome ankle swell ing. Genitourinary: Complains of frequent nocturnal urination. Denies painful urination, urine i ncontinence, waking up on average more than once per night to urinate, bloody urine, or impo tence. Musculoskeletal: Complains of swollen joints, painful back, or painful joints. Psychiatric: Complains of anxiety and depression. Endocrine: Denies enlarged thyroid. Hematology/ Lymph: Denies anemia or enlarged lymph glands. Objective: PHYSICAL EXAM: General: well developed, well nourished, in no acute distress, morbidly obese. Head: normocephalic and atraumatic Eyes: Sclera clear Mouth: MMM Lungs: Clear to auscultate bilaterally and throughout Heart: regular rate and rhythm Abdomen: Soft, diffusely tender to palpation, non distended, bowel tones positive times 4 quadra nts, negative Velásquez's sign, negative rebound tenderness, no guarding, no hepatosplenomegaly palpated. Rectal: Will be done prior to procedure Msk: symmetrical with no deformity, with normal posture and gait, normal strength. Extremities: no clubbing, cyanosis, edema, or deformity noted Neurologic: no focal deficits, cranial nerves II-XII grossly intact Skin: intact without lesions or rashes. Psych: alert and cooperative; normal mood and affect; normal attention span and concentration. Abstract on 04/21/2017 Component Date Value Ref Range Status Creatinine, External 01/06/2017 0.39* 0.6 - 1.35 Final eGFR, External 01/06/2017 >60 60 - 99,999 Final Cholesterol, Total, External 01/06/2017 290* 0 - 200 mg/dl Final HDL Cholesterol, External 01/06/2017 53.5 40 - 9,999 mg/dl Final Triglycerides, External 01/06/2017 410* 30 - 150 Final TSH, External 01/06/2017 0.763 0.27 - 4.2 Final WBC, External 01/06/2017 11.7* 4.5 - 11 Final HGB, External 01/06/2017 15.7 12 - 16 Final HCT, External 01/06/2017 48* 35 - 45 Final PLT, External 01/06/2017 352 140 - 440 Final Neutrophils %, External 01/06/2017 67.9 39 - 80 Final Lymphocytes %, External 01/06/2017 25.6 24 - 44 Final Monocytes %, External 01/06/2017 4.8 0 - 12 Final Eosinophils %, External 01/06/2017 1.3 0 - 6 Final RBC, External 01/06/2017 5.42* 3.8 - 5.1 Final MCV, External 01/06/2017 89 81 - 99 Final RDW, External 01/06/2017 16.5* 10.5 - 15 Final UA Blood, External 01/06/2017 Negative Final UA Glucose, External 01/06/2017 Normal Final UA Ketones, External 01/06/2017 Negative Final UA Ph, External 01/06/2017 5 5 - 9 Final UA Proteins, External 01/06/2017 Negative Final UA RBC, External 01/06/2017 0 0 - 4 Final UA Specific [place], External 01/06/2017 1.019 1.005 - 1.03 Final UA Leukocyte Esterase, External 01/06/2017 Negative Final Sodium, External 01/06/2017 139 132 - 143 Final Potassium, External 01/06/2017 4.4 3.6 - 5.1 Final Chloride, External 01/06/2017 103 95 - 112 Final Carbon Dioxide, External 01/06/2017 20 19 - 31 Final Calcium, External 01/06/2017 9.8 8.4 - 10.2 Final Protein, Total, External 01/06/2017 6.8 6 - 8 Final Albumin, External 01/06/2017 4 3.5 - 5 Final Bilirubin, Total, External 01/06/2017 0.3 0 - 1.2 Final ALP, External 01/06/2017 83 31 - 130 Final AST, External 01/06/2017 18 13 - 39 Final ALT, External 01/06/2017 17 7 - 52 Final Glucose, External 01/06/2017 117* 70 - 100 Final BUN, External 01/06/2017 8 6 - 23 Final Hemoglobin A1c, external 01/06/2017 6.1 Final Non HDL Chol. (LDL+VLDL) 01/06/2017 237* 0 - 130 Final Chol/HDL Ratio 01/06/2017 5.4* 0.0 - 4.4 Final ANION GAP 01/06/2017 20 7 - 21 mmol/L Final BUN/Creatinine Ratio 01/06/2017 11.6 6 - 28.6 Final Globulin 01/06/2017 2.8 1.8 - 3.5 Final Albumin/Globulin Ratio 01/06/2017 1.4 1.1 - 2.4 Final MCH 01/06/2017 29.0 26.0 - 33.0 pg Final MCHC 01/06/2017 33.0 30.0 - 36.0 % Final Basophils % 01/06/2017 0.4 0 - 2 Final COLLECTION METHOD 1 01/06/2017 Clean catch Final Color 01/06/2017 straw Final CLARITY 01/06/2017 Clear Final BILIRUBIN UA 01/06/2017 Negative Negative Final NITRITE UA 01/06/2017 Negative Negative Final UROBILINOGEN UA 01/06/2017 Normal < 0.2 mg/dL, 1.0 mg/dL, 4.0 mg/dL, Normal, 1.0 E.U./ dL, 0.2 E.U./dL, 0.2 mg/dL, Negative, 1 mg/dL, <2.0 mg/dL Final CASTS 01/06/2017 Negative Final WBC, UA 01/06/2017 0 0 - 4 Final Squamous epithelial, UA, POC 01/06/2017 2+ Final CRYSTAL UA 01/06/2017 Negative Final Bacteria, UA 01/06/2017 Negative Final Immunoglobulin IgG 01/18/2017 763 664 - 1,411 Final Immunoglobulin IgA 01/18/2017 200 66 - 433 Final Immunoglobulin IgM 01/18/2017 117 47 - 248 Final H PYLORI IGG 01/18/2017 Negative Final WBC, External 01/18/2017 15.8* 4.5 - 11 Final HGB, External 01/18/2017 14 12 - 16 Final HCT, External 01/18/2017 42 35 - 45 Final PLT, External 01/18/2017 396 140 - 440 Final Neutrophils %, External 01/18/2017 69.4 39 - 80 Final Lymphocytes %, External 01/18/2017 22.6* 24 - 44 Final Monocytes %, External 01/18/2017 6.4 0 - 12 Final Eosinophils %, External 01/18/2017 1 0 - 6 Final RBC, External 01/18/2017 4.78 3.8 - 5.1 Final MCV, External 01/18/2017 88 81 - 99 Final RDW, External 01/18/2017 16.2* 10.5 - 15 Final MCH 01/18/2017 29.0 26.0 - 33.0 pg Final MCHC 01/18/2017 33.0 30.0 - 36.0 % Final Basophils % 01/18/2017 0.6 0 - 2 Final Result 01/18/2017 01-19-17 no growth of normal enteric gram-negative bacilli after overn ight incubation. Final Result 01/18/2017 01-20-17 moderate growth normal enteric dennise. Final Result 01/18/2017 01-21-17 no change in growth. no salmonella, shigella, escherichia col i O157, campylobacter, or yersinia isolated. not specifically tested for other enteric patho gens. Final Result 01/18/2017 01-19-17 no ova and parasites seen. Final Assessment: 1. Diarrhea, unspecified type Case request: Colonoscopy; N/A 2. Elevated cholesterol with elevated triglycerides Case request: Colonoscopy; N/A 3. Obesity, morbid, BMI 40.0-49.9 ([facility]) Case request: Colonoscopy; N/A 4. Abdominal pain, epigastric Case request: Colonoscopy; N/A 5. Bipolar affective disorder, remission status unspecified ([facility]) Case request: Colonoscop y; N/A Plan: Patient to have colonoscopy for further evaluation of diarrhea with fecal urgency and incon tinence. The procedural techniques, risks, indications, and alternatives were discussed. Am jhonatan the risks, are perforation, bleeding, infection, allergic/adverse reactions to medicatio ns, and cardiovascular complications. Each of these could result in hospitalization, additi onal procedures (including surgery), or other life threatening complications. Patient christal richter. Risk factors to colo-rectal cancer discussed with patient including smo cinda, obesity, excessive red meat ingestion, advancing age and first degree family relative with history of colo-rectal cancer discussed with patient. Patient to call with any question s or concerns prior to procedure. Recommend procedure with anesthesia due to BMI over 40. Patient given a prescription for Bentyl to help with abdominal pain. Advised that 2 Pamprin in addition to 2 Tylenol 500 mg tabs is too much acetaminophen to ta ke at 1 time. Differential includes functional cause, malabsorption secondary to bariatric surgery, autoi mmune disorder due to family history, or microscopic colitis. Less likely would be infectiou s or malignancy. Will follow up with results. Patient is to call with any question or concerns. Any fevers, chills, chest pain, SOB or other serious symptoms patient is to call the office or go to ER . Cc: Ronda Wade MD This note was dictated using voice recognition software. Please contact me if there are an y questions regarding its content. documented in this encounter Plan of Treatment Not on filedocumented as of this encounter Visit Diagnoses + + | Diagnosis | + + | Diarrhea, unspecified type - Primary | + + | Elevated cholesterol with elevated triglycerides Mixed hyperlipidemia | + + | Obesity, morbid, BMI 40.0-49.9 (HCC) | + + | Abdominal pain, epigastric | + + | Bipolar affective disorder, remission status unspecified (HCC) | + + | LAP-BAND surgery status Bariatric surgery status | + + | Incontinence of feces with fecal urgency | + + | Family history of autoimmune disorder Family history of other condition | + + documented in this encounter
--- OUTSIDE RECORDS SUMMARY | ~2019-08-09 | XMS | Encounter Summary ---
Demographics + + + | Address | [address] | | | [place] [address] | + + + | Home Phone | | + + + | Preferred Language | Unknown | + + + | Marital Status | | + + + | Caodaism Affiliation | 1027 | + + + | Race | Unknown | + + + | Ethnic Group | Unknown | + + + Author + + + | Author | [facility] | | | and [place] | + + + | Organization | [facility] | | | [...] + +------+ + | Care Vice President Supply Chain Name | Role | Phone | + +------+ + PCP | Unavailable | + +------+ + Encounter Details +--------+ + + + + | Date | Type | Department | Care Team | Description | +--------+ + + + + | 08/21/ | Hospital | [facility] | Conversion | Pain | | 2015 | Encounter | CONVERSION DEP [address] | Transaction, | | | | | [address] | Provider Unknown | | | | | [place] | | | | | | [phone] | (Fax) | | | | | [phone] | | | +--------+ + + + [...] mg by mouth | | 0 | 06/21/ | | | (NEURONTIN) 300 mg | [...] | + +--------+ + + + | CT SINUS WO CONTRAST | Routin | 03/06/2014 | | Results for this | | | e | 12:36 AM | | procedure are in the | | | | PDT | | results section. | + +--------+ + + + documented in this encounter Results CT Sinus wo Contrast (03/06/2014 12:36 AM PDT) + + | Specimen | + + | | + + + + + | Narrative | Performed At | + + + | This is a non-reportable procedure without a radiologist report and | | | is used for image storage only | | + + + + + | Procedure Note | + + | Juan Stahl - 03/17/2019 5:55 AM PDT This is a non-reportable procedure | | without a radiologist report and isused for image storage only | + + documented in this encounter Visit Diagnoses + + | Diagnosis | + + | Pain Generalized pain | + + documented in this encounter"
--- OUTSIDE RECORDS SUMMARY | ~2019-08-09 | XMS | Encounter Summary ---
Demographics + + + | Address | [address] | | | [place] [address] | + + + | Home Phone | | + + + | Preferred Language | Unknown | + + + | Marital Status | | + + + | Mormonism Affiliation | 1027 | + + + | Race | Unknown | + + + | Ethnic Group | Unknown | + + + Author + + + | Author | [facility] | | | and [place] | + + + | Organization | [facility] | | | and [...] Team Providers + +------+ + | Care Ladies Suit Operator Name | Role | Phone | + +------+ + | Ronda Wade MD | PCP | | + +------+ + Encounter Details +--------+ + + + + | Date | Type | Department | Care Team | Description | +--------+ + + + + | 04/27/ | Orders Only | [facility] | Abram Friend MD | | | 2013 | | [address] | [address] | | | | | [place] | [place] | | | | | [address] | [address] | | | | | [phone] | [phone] | | | | | | | | +--------+ + + + [...] | + +--------+ + + + | C-REACTIVE PROTEIN | Routin | 04/27/2014 | | Results for this | | | e | 5:00 AM | | procedure are in the | | | | PDT | | results section. | + +--------+ + + + documented in this encounter Results C-Reactive Protein (04/27/2014 5:00 AM PDT) + + + + + + | Component | Value | Ref Range | Performed | Pathologist | | | | | At | Signature | + + + + + + | CRP | 20.3 (H)Comment: Testing | mg/dL | EXTERNAL | | | | performed at [facility], [address] | | LAB | | | | [address], | | | | | | [place] [address] | | | | + + + + + + + + | Specimen | + + | | + + + + + | Narrative | Performed At | + + + | Attending/Visit Provider: MINNIE MD, Almaz PACE, , , , ИРИНА, | EXTERNAL LAB | + + + + +---------+ + + | Performing | Address | City/State/Zipcode | Phone Number | | Organization | | | | + +---------+ + + | EXTERNAL LAB | | | | + +---------+ + + documented in this encounter Visit Diagnoses Not on filedocumented in this encounter"
--- OUTSIDE RECORDS SUMMARY | ~2019-08-09 | XMS | Encounter Summary ---
Demographics + + + | Address | [address] | | | [place] [address] | + + + | Home Phone | | + + + | Preferred Language | Unknown | + + + | Marital Status | | + + + | Hinduism Affiliation | 1027 | + + + | Race | Unknown | + + + | Ethnic Group | Unknown | + + + Author + + + | Author | [facility] | | | and [place] | + + + | Organization | [facility] | | | [...] Team Providers + +------+ + | Care Fiber Product Cutting Machine Operator Name | Role | Phone | + +------+ + | Ronda Wade MD | PCP | | + +------+ + Encounter Details +--------+ + + + + | Date | Type | Department | Care Team | Description | +--------+ + + + + | 03/25/ | Orders Only | [facility] | Conversion | | | 2013 | | [address] | Transaction, | | | | | [place] | Provider Unknown | | | | | [address] | [phone] | | | | | [phone] | | | +--------+ + + + [...] | + +--------+ + + + | EXTERNAL LAB: CBC | Routin | 03/25/2014 | | Results for this | | | e | 6:01 AM | | procedure are in the | | | | PDT | | results section. | + +--------+ + + + documented in this encounter Results External Lab: CBC (03/25/2014 6:01 AM PDT) + + + + + + | Component | Value | Ref Range | Performed | Pathologist | | | | | At | Signature | + + + + + + | WBC | 14.2 (H)Comment: Testing | 3.8 - 11.0 K/uL | EXTERNAL | | | | performed at [facility] | | LAB | | | | Health; [address]; | | | | | | [place] [address] | | | | + + + + + + | RED CELL | 2.83 (L)Comment: Testing | 3.70 - 5.10 | EXTERNAL | | | COUNT | performed at [facility] | M/uL | LAB | | | | Health; [address]; | | | | | | [place] [address] | | | | + + + + + + | Hgb | 8.4 (L)Comment: Testing | 11.3 - 15.5 | EXTERNAL | | | | performed at [facility] | g/dL | LAB | | | | Health; [address]; | | | | | | [place] [address] | | | | + + + + + + | Hematocrit, | 26.1 (L)Comment: Testing | 34.0 - 46.0 % | EXTERNAL | | | POC | performed at [facility] | | LAB | | | | Health; [address]; | | | | | | [place] [address] | | | | + + + + + + | MCV | 92.2Comment: Testing | 80.0 - 100.0 fl | EXTERNAL | | | | performed at [facility] | | LAB | | | | Health; [address]; | | | | | | [place] [address] | | | | + + + + + + | MCH | 29.8Comment: Testing | 27.0 - 34.0 pg | EXTERNAL | | | | performed at [facility] | | LAB | | | | Health; [address]; | | | | | | [place] [address] | | | | + + + + + + | MCHC | 32.3Comment: Testing | 32.0 - 35.5 | EXTERNAL | | | | performed at [facility] | g/dL | LAB | | | | Health; [address]; | | | | | | [place] [address] | | | | + + + + + + | RDW-CV | 73.1 (H)Comment: Testing | 37 - 53 fl | EXTERNAL | | | | performed at [facility] | | LAB | | | | Health; [address]; | | | | | | [place] [address] | | | | + + + + + + | Platelet | 606 (H)Comment: Testing | 150 - 400 K/uL | EXTERNAL | | | Count | performed at [facility] | | LAB | | | Plasma | Health; [address]; | | | | | | [place] [address] | | | | + + + + + + | MPV | 6.8Comment: Testing | fl | EXTERNAL | | | | performed at [facility] | | LAB | | | | Health; [address]; | | | | | | [place] [address] | | | | + + + + + + | Differentia | MANUALComment: Testing | | EXTERNAL | | | l Type | performed at [facility] | | LAB | | | | Health; [address]; | | | | | | [place] [address] | | | | + + + + + + | Segmented | 60Comment: Testing | % | EXTERNAL | | | Neutrophils | performed at [facility] | | LAB | | | Manual | Health; [address]; | | | | | | [place] [address] | | | | + + + + + + | Lymphocytes | 20Comment: Testing | % | EXTERNAL | | | Manual | performed at [facility] | | LAB | | | | Health; [address]; | | | | | | [place] [address] | | | | + + + + + + | Monocytes | 9Comment: Testing | % | EXTERNAL | | | Manual | performed at [facility] | | LAB | | | | Health; [address]; | | | | | | [place] [address] | | | | + + + + + + | Eosinophils | 11Comment: Testing | % | EXTERNAL | | | Manual | performed at [facility] | | LAB | | | | Health; [address]; | | | | | | [place] [address] | | | | + + + + + + | Absolute | 8.5 (H)Comment: Testing | 1.9 - 7.4 K/uL | EXTERNAL | | | Neutrophils | performed at [facility] | | LAB | | | | Health; [address]; | | | | | | [place] [address] | | | | + + + + + + | Absolute | 2.8Comment: Testing | 1.0 - 3.9 K/uL | EXTERNAL | | | Lymphocytes | performed at [facility] | | LAB | | | | Health; [address]; | | | | | | [place] [address] | | | | + + + + + + | Absolute | 1.3 (H)Comment: Testing | 0 - 0.8 K/uL | EXTERNAL | | | Monocytes | performed at [facility] | | LAB | | | | Health; [address]; | | | | | | [place] [address] | | | | + + + + + + | Absolute | 1.6 (H)Comment: Testing | 0 - 0.5 K/uL | EXTERNAL | | | Eosinophils | performed at [facility] | | LAB | | | | Health; [address]; | | | | | | [place] [address] | | | | + + + + + + | RBC | 2+ | | EXTERNAL | | | Morphology | | | LAB | | + + + + + + | RBC | [facility] | | EXTERNAL | | | Morphology | | | LAB | | + + + + + + | RBC | [facility] | | EXTERNAL | | | Morphology | | | LAB | | + + + + + + | RBC | Testing performed at | | EXTERNAL | | | Morphology | [facility]; [address] | | LAB | | | | [place] | | | | | | [address] | | | | + + + + + + + + | Specimen | + + | | + + + + + | Narrative | Performed At | + + + | Attending/Visit Provider: MINNIE MD, Almaz PACE, , , , ИРИНА, | EXTERNAL LAB | | Ordering Provider: CHINO/MARY ANN LÓPEZ DO, , , , , CLYDE, | | + + + + +---------+ + + | Performing | Address | City/State/Zipcode | Phone Number | | Organization | | | | + +---------+ + + | EXTERNAL LAB | | | | + +---------+ + + documented in this encounter Visit Diagnoses Not on filedocumented in this encounter"
--- OUTSIDE RECORDS SUMMARY | ~2019-08-09 | XMS | Encounter Summary ---
Demographics + + + | Address | [address] | | | [place] [address] | + + + | Home Phone | | + + + | Preferred Language | Unknown | + + + | Marital Status | | + + + | Quaker Affiliation | LDS | + + + [...] Team Providers + +------+ + | Care Tax Staff Accountant Name | Role | Phone | + +------+ + | Ashwini Ochoa NP | PCP | | + +------+ + Reason for Visit AUTH/CERT +--------+--------+ + + + + | Status | Reason | Specialty | Diagnoses / | Referred By | Referred To | | | | | Procedures | Contact | Contact | +--------+--------+ + + + + | | | | | | | +--------+--------+ + + + + Encounter Details +--------+---------+ + + + | Date | Type | Department | Care Team | Description | +--------+---------+ + + + | 10/24/ | Surgery | 6A Intra Op [id number] | Bart Graham MD | FRAMELESS | | 2015 | | [facility] | [address] [facility] | STEREOTACTIC | | | | Rd [facility] | [facility] [place] | SUBOCCIPITAL | | | | Hospital Admitting | [phone] | CRANIECTOMY FOR | | | | Desk Located on the | [phone] | RESECTION OF 4TH | | | | 9th floor | | VENTRICULAR TUMOR; | | | | [place], [place] | | pathology sent (?? | | | | [phone] | | FS, ??? audelia), see | | | | | | paper record | +--------+---------+ + + + Social History + + [...] + + + | Blood Pressure | 152/90 | 10/28/2014 8:35 AM | | | | | PDT | | + + + + + | Pulse | 98 | 10/28/2014 8:35 AM | | | | | PDT | | + + + + + | Temperature | 36.4 C (97.5 F) | 10/28/2014 8:33 AM | | | | | PDT | | + + + + + | Respiratory Rate | 16 | 10/28/2014 8:33 AM | | | | | PDT | | + + + + + | Oxygen Saturation | 100% | 10/28/2014 8:35 AM | | | | | PDT | | + + + + + | Inhaled Oxygen | - | - | | | Concentration | | | | + + + + + | Weight | 97 kg (213 lb 13.5 | 10/25/2014 5:00 AM | | | | oz) | PDT | | + + + + + | Height | 154.9 cm (5' 1") | 10/25/2014 5:00 AM | | | | | PDT | | + + + + + | Body Mass Index | 40.41 | 10/25/2014 5:00 AM | | | | | PDT | | + + + + + documented in this encounter Discharge Summaries Jaime Howard MD - 10/28/2014 9:01 AM PDTFormatting of this note might be different fro m the original. INPATIENT PHYSICIAN DISCHARGE SUMMARY Attending Physician: Bart Graham MD PCP: Ashwini Ochoa NP Admission Date: 2014 Discharge Date: 10/28/2014 Diagnoses Principal Final Diagnosis: Fourth ventricular tumor Additional Diagnoses: Past Medical History: Brain tumor Headache Sleep apnea Anxiety Depression Bipolar disorder DDD (degenerative disc disease) Procedures 10/24/14 1. Suboccipital craniectomy and C1 laminectomy. 2. Resection of 4th ventricular mass. 3. Titanium mesh cranioplasty. 4. Use of a high-powered operating microscope. 5. Frameless stereotaxy. 6. Intraoperative neuromonitoring with SSEP, MEP and EMG of cranial nerves IX throu gh XII. Reason For Admission: See above Hospital Course: Mendoza Villegas is a 44 y.o. female with a history of 4th ventricular mass, admitted [facility] on 2014 for the procedures described above. There were no operative complications and Tolerated surgery well. Post-operatively he/she was admitted to the [facility] for close monit oring and pain control. She/he was followed closely by the attending providers, resident pro viders, and medical/nursing staff. Post operatively, he/she began to mobilize with assistanc e of PT and OT. Her pain was controlled with PO pain medication. She was voiding without dif ficulty and tolerating a regular diet. Prior to discharge he/she was afebrile and the surgic al wound remained clean, dry, and intact without signs concerning for infection. The patient was felt appropriate for discharge to home on 10/28/2014, and the patient and/or family memb ers agree with this course of action. Exam prior to DC: AAOx4, appropriate PERRL, EOMI, FS, TML 5/5 throughout, ambulating well Incision CDI She feels ready to go home Discharge Medication List as of 10/28/2014 9:30 AM START taking these medications Details !! dexamethasone 2 mg oral tablet Take 1 tablet by mouth every eight hours for 2 days., Dis p-6 tablet, R-0, Print Prescription !! dexamethasone 2 mg oral tablet Take 1 tablet by mouth every twelve hours for 2 days., Di sp-4 tablet, R-0, Print Prescription !! dexamethasone 2 mg oral tablet Take 1 tablet by mouth once daily for 2 days., Disp-2 tab let, R-0, Print Prescription !! dexamethasone 4 mg oral tablet Take 1 tablet by mouth every eight hours for 2 days., Dis p-6 tablet, R-0, Print Prescription !! dexamethasone 4 mg oral tablet Take 1 tablet by mouth every six hours., Disp-4 tablet, R -0, Print Prescription MISCELLANEOUS MEDICAL SUPPLY (WALKER FOLDING WHEELED WALKER) Side: bilateral Ht Readings from Last 1 Encounters: 10/25/14 : 1.549 m (5' 1") Wt Readings from Last 1 Encounters: 10/25/14 : 97 kg (213 lb 13.5 oz) Diagnosis: 781.2 Abnormality of Gait and 719.7 difficulty in walking Anticipated Discharge:, Di sp-1 each, R-0, Print Prescription polyethylene glycol 17 gram/dose oral powder Take 17 g by mouth once daily as needed. Indic ations: CONSTIPATION, Disp-119 g, OTC senna-docusate 8.6-50 mg oral tablet Take 1 tablet by mouth two times daily. Indications: C ONSTIPATION, OTC tiZANidine 2 mg oral tablet Take 1 tablet by mouth three times daily as needed. Max: 36 mg / day., Disp-60 tablet, R-0, Print Prescription !! - Potential duplicate medications found. Please discuss with provider. CONTINUE these medications which have CHANGED or have new prescriptions Details celecoxib 200 mg oral capsule Take 1 capsule by mouth once daily in the morning. May resume 2 weeks after surgery, Historical Med HYDROmorphone 2 mg oral tablet Take 1 to 2 tablets by mouth every three hours as needed for severe pain., Disp-60 tablet, R-0, Print Prescription CONTINUE these medications which have NOT CHANGED Details Acetaminophen 500 mg oral capsule Take 500 mg by mouth every six hours as needed., Historic al Med ACETAMINOPHEN/PYRILAM/PAMABROM (PAMPRIN MULTI-SYMPTOM ORAL) Take by mouth as needed., Hist orical Med albuterol 90 mcg/actuation inhalation HFA aerosol inhaler Inhale every four hours as needed ., Historical Med ASCORBIC ACID (VITAMIN C ORAL) Take by mouth once daily in the morning., Historical Med buPROPion XL 300 mg oral tablet extended release 24 hr 300 mg once daily in the morning., H istorical Med CA CARBONATE/VITAMIN D3/VIT K (VIACTIV ORAL) Take by mouth three times daily., Historical Med DULoxetine 60 mg oral capsule,delayed release(DR/EC) 60 mg once daily in the morning., Hist orical Med ergocalciferol 50,000 unit oral capsule Take 50,000 Units by mouth once a week., Historical Med gabapentin 300 mg oral capsule 900 mg once daily at bedtime., Historical Med LANSOPRAZOLE 30 mg oral capsule,delayed release(DR/EC) Take by mouth once daily at bedtime ., Historical Med LITHIUM CARBONATE 300 mg oral capsule Take 600 mg by mouth once daily at bedtime. 2 tabs=60 0 mg, Historical Med LORAZEPAM 1 mg oral tablet Take 1 mg by mouth every six hours as needed (as needed & @ HS). , Historical Med omeprazole magnesium (PRILOSEC OTC) 20 mg oral tablet,delayed release (DR/EC) Take 20 mg by mouth once daily in the morning., Historical Med PEDIATRIC MULTIVIT COMB #19/FA (CHILDREN'S MULTI-VIT GUMMIES ORAL) Take by mouth once thu y in the morning., Historical Med silver sulfaDIAZINE (SILVADENE) 1 % topical cream Apply to affected area once daily in the morning. Apply with a sterile-gloved hand; Burned area should be covered with cream at all times., Historical Med TOPIRAMATE 25 mg oral tablet 50 mg two times daily. 2 tabs=50 mg BID, Historical Med TRAMADOL 50 mg oral tablet Take 50 mg by mouth every six hours as needed., Historical Med ZIPRASIDONE 80 mg oral capsule Take 160 mg by mouth once daily at bedtime., Historical Med Wound Care 1) Keep incision site clean and dry.2) Okay to shower and get surgical incision wet daily with shampoo and water beginning 10/27/14 but do not submerge surgical incision in hot tub o r swimming pool.3) Your sutures are absorbable and will come out on their own4) Avoid imme rsing your incision (baths, hot tubs, saunas) for one month following your procedure. Diet Regular Regular diet- There are no restrictions to your diet. You may eat or drink whatever you pr efer, though healthy food choices are recommended. Activity Avoid heavy lifting, repetitive bending and all strenuous activity until further notice. No driving while taking oral narcotics/pain medications. Destination: Destination: Home Condition on Discharge Good FOLLOW-UP 1. Return to Neurosurgery clinic for follow up appointment with the [facility] physician asad singh on 11/09/14 at 9:30am. We are located at the [facility], [address] [place] [address]. Address: [address] [place] [address]. Please call [phone] for questions o r concerns. 2. Follow up with your PCP to review your hospital course and medication changes. Please call to schedule this appointment. Future Appointments Date & Time Provider Department Dept Phone Center 11/09/2014 9:30 AM Bart Graham Neurosurgery at [facility] [phone] Neurosurgery Discharging Physician: JAIME HOWARD MD Attending Physician: Bart Graham MD documented in this enco unter Medications at Time of Discharge + + [...] once daily in | | 0 | 06/21/ | | | mg oral tablet | [...] | | | 14 | | | release(DR/EC) | | | | | | + [...] | | | | | | | release(DR/EC) | | | | | | + + + +---------+ + + | LITHIUM CARBONATE | Take 600 mg by mouth | | 0 | 07/31/20 | | | 300 mg oral capsule | once daily at | | | 14 | | | | bedtime. 2 ebck=353 | | | | | | | [...] + + +---------+ + + | dexamethasone 2 mg | Take 1 tablet by | 6 | 0 | 11/01/19 | | | oral tablet | mouth every eight | tablet | | 15 | 5 | | | hours for 2 days. | | | | | | | Take 1 tablet by | | | | | | | mouth every 12 hours | | | | | | | for 2 days. | | | | | + + + +---------+ + + | dexamethasone 2 mg | Take 1 tablet by | 4 | 0 | 11/03/19 | | | oral tablet | mouth every twelve | tablet | | 15 | 5 | | | hours for 2 days. | | | | | + + + +---------+ + + | dexamethasone 2 mg | Take 1 tablet by | 2 | 0 | 11/05/19 | | | oral tablet | mouth once daily for | tablet | | 15 | 5 | | | 2 days. | | | | | + + + +---------+ + + | dexamethasone 4 mg | Take 1 tablet by | 16 | 0 | 10/30/19 | | | oral tablet | mouth every 6 hours | tablet | | 15 | 5 | | | for 1 day (starting | | | | | | | 10/28/14), then take | | | | | | | 1 tablet by mouth | | | | | | | every 8 hours for 2 | | | | | | | days, then take | | | | | | | tablet by mouth | | | | | | | every 8 hours for 2 | | | | | | | days, then take | | | | | | | tablet by mouth | | | | | | | every 12 hours for 2 | | | | | | | days, then take | | | | | | | tablet by mouth once | | | | | | | daily for 2 days | | | | | + + + +---------+ + + | MISCELLANEOUS | Side: bilateralHt | 1 each | 0 | 10/28/19 | | | MEDICAL SUPPLY | Readings from Last 1 | | | 15 | 5 | | (WALKER FOLDING | Encounters:10/25/14 | | | | | | WHEELED WALKER) | : 1.549 m (5' 1")Wt | | | | | | | Readings from Last | | | | | | | 1 | | | | | | | Encounters:10/25/14 | | | | | | | : 97 kg (213 lb 13.5 | | | | | | | oz)Diagnosis: 781.2 | | | | | | | Abnormality of Gait | | | | | | | and 719.7 | | | | | | | difficulty in | | | | | | | walking Anticipated | | | | | | | Discharge: | | | | | + + + +---------+ + + documented as of this encounter Progress Notes Jaime Howard MD - 10/27/2014 12:45 PM PDTFormatting of this note might be different fro m the original. NEUROSURGERY INPATIENT PROGRESS NOTE Hospital Day:3 Author; JAIME HOWARD MD Attending Physician: Bart Graham MD Interval Hx: -lizy o/n -pt feeling well, no new issues, little stiff -pain controlled, no fever, no martinez, no nv Physical Exam: Last Vitals: BP 123/67 | Pulse 62 | Temp 36.6 C (97.9 F) | RR 16 | Ht 1.549 m (5' 1") | Wt 97 kg (213 lb 13.5 oz) | SpO2 98% | BMI 40.43 kg/(m^2) O2 Delivery Device: None (room air) (10/27/14 0752) 24 Hour Vital Min/Max: Systolic (24hrs), Av mmHg, Min:123 mmHg, Max:155 mmHg Diastolic (24hrs), Av mmHg, Min:67 mmHg, Max:94 mmHg Pulse Min: 62 Max: 80 Temp Min: 36.4 C (97.5 F) Max: 36.9 C (98.4 F) Resp Min: 16 Max: 18 SpO2 Min: 97 % Max: 100 % Intake/Output Summary (Last 24 hours) at 10/27/14 1245 Last data filed at 10/27/14 0800 Gross per 24 hour Intake 1390 ml Output 1475 ml Net -85 ml Labs CBC with diff last 72 hours (or 3 results) Recent Labs 10/25/14 02010/26/1410110/27/14 0646 WBC 30.79* 26.34* 18.52* HB 10.2* 9.0* 9.8* HCT 34.4* 30.4* 34.1* PLT 393 294 295 Chemistries: Last 72 Hours (or 3 results): Recent Labs 10/25/14 02010/26/1410110/26/14 2200 10/27/14 0639 10/27/14 0646 NA 141 -- 140 -- -- -- 142 K 4.1 -- 4.2 -- -- -- 4.0 CL 112* -- 112* -- -- -- 112* BICARB 22 -- 23 -- -- -- 22 BUN 13 -- 15 -- -- -- 16 CR 0.63 -- 0.63 -- -- -- 0.60 GLU 194* < > 167* < > 140* 137* 127* CA 8.7 -- 8.9 -- -- -- 9.3 PO4 3.0 -- 1.4* -- -- -- 2.3* < > = values in this interval not displayed. General: Well-developed, well-nourished female in NAD Incision: C/D/I, no erythema Neuro: Alert and oriented x 3, PERRL, EOMI, face symmetric, tongue midline Motor: 5/5 throughout, some pain SILT Psychiatric: Appropriate and cooperative Assessment/Plan: Mendoza Villegas is a 44 y.o. female with history of 4th ventricular mass, now POD#3 from suboccipital craniotomy and resection of 4th ventricular mass. -neuro stable, monitor -cont slow taper -pain control cont -wound care -encourage oob/ambulate with front wheel walker -PT/OT recs -monitor CBGs, can DC insulin if not requiring -Dispo to home tomorrow if no new issues Jaime Howard MD Neurosurgery Resident Pager #[phone] MEDICATIONS Current Facility-Administered Medications Medication acetaminophen (TYLENOL) tablet 325-650 mg albuterol (PROVENTIL, VENTOLIN) 90 mcg/actuation inhaler 2 puff bisacodyl (DULCOLAX) suppository 10 mg buPROPion XL (WELLBUTRIN-XL) tablet 300 mg dexamethasone (DECADRON) tablet 4 mg Followed by [START ON 10/29/2014] dexamethasone (DECADRON) tablet 4 mg Followed by [START ON 10/31/2014] dexamethasone (DECADRON) tablet 2 mg Followed by [START ON 11/02/2014] dexamethasone (DECADRON) tablet 2 mg Followed by [START ON 11/04/2014] dexamethasone (DECADRON) tablet 2 mg dextrose 50 % IV 25 mL DULoxetine (CYMBALTA) capsule 60 mg gabapentin (NEURONTIN) capsule 900 mg glucagon (GLUCAGEN) injection 1 mg glucose chewable tablet 16 g hydrALAZINE (APRESOLINE) injection 10 mg HYDROmorphone (DILAUDID) injection 0.5-1 mg HYDROmorphone (DILAUDID) tablet 2 mg insulin lispro (HUMALOG) injection lithium carbonate capsule 600 mg LORazepam (ATIVAN) tablet 0.5 mg omeprazole (PRILOSEC) capsule 40 mg ondansetron (ZOFRAN) injection 4 mg ondansetron (ZOFRAN) tablet 4 mg polyethylene glycol (MIRALAX) powder 17 g senna-docusate (SENOKOT S) 8.6-50 mg 1 tablet tiZANidine (ZANAFLEX) tablet 2 mg topiramate (TOPAMAX) tablet 50 mg ziprasidone (GEODON) capsule 160 mg Bart Chan MD - 0 10/26/2014 12:38 PM PDT NEUROSURGERY PROGRESS NOTE Author: KAREEN YOUNG MD Today's Date: 10/25/2014 Attending Physician: Bart Graham MD INTERVAL UPDATE: -OR yesterday for SOC and resection of 4th ventricular mass. -Doing well overnight. No significant events. Mild posterior headache. OBJECTIVE: Vital signs, labs, and medications all reviewed in patient chart. NEUROLOGICAL EXAM: Awake, alert, orient to self, [facility], and March Speech fluent, answers appropriately PERRL, EOMI Face symmetric, TML No pronator drift, no FTN dysmetria Full strength in all 4 extremities SILT Incision clean/dry/intact, flat RADIOLOGY: CT last night shows good resolution of blood, minimal remaining SDH. ASSESSMENT/PLAN: 44 y.o. female HD#2 with history of 4th ventricular mass, now POD#2 from suboccipital crani otomy and resection of 4th ventricular mass. -OK to transfer to [facility]. -Q4H neurochecks. -Slow taper dexamethasone. -Pain control. -Keep incision clean and dry. KAREEN YOUNG MD Neurological Surgery, PGY-2 I have seen and examined the patient. I agree with the exam and plan as described in the r esident note. Sachin Malhotra MD - 7:35 PM PDT 7NSICU ATTENDING NEUROINTENSIVIST PROGRESS NOTE Team Pager: [phone] Attendin -------- EVENING NOTE -------- Date:10/25/2014 Critical Care Attending Physician: SACHIN WARD MD Referring Attending Physician: Bart Graham MD I saw and evaluated the patient at the bedside with the HO/PA. I reviewed all data and the recent imaging available. I appreciate the plan of care by the admitting (primary) team and the consultants involved. (Relevant data is listed at the bottom of this note) CC / Last 12-24hr: Will remain in ICU for hydrocephalus watch; overall did well Patient Active Problem List Diagnosis Neoplasm of brain MRI 10/25: Expected postoperative changes. This will serve as a baseline for future examinat ions. The previously identified T2 hyperintense nonenhancing vermis mass is not well-seen. Plan: # POD#1 crani for C1 Lami and 4th ventricular mass; neurochecks in ICU- at risk for hydroc ephalus, goal SBP<160; dexamethasone slow taper # Anemia: 34 # МАРИНА: home CPAP # Asthma: Albuterol prn # GERD: omeprazole # Chronic Headaches/home opioids: continue gabapentin # Leukocytosis - likely due to steroids, no other s/s of infection # Bipolar: Restart Wellbutrin, [place], Duloxetine, Ziprasidone, and lorazepam (prn) # Lines: CVL (subclavian), matos, PIV - d/c matos Relevant Risks: This patient is currently at risk for the following: cerebral edema, hydroc ephalus, intracerebral hemorrhage and seizure; central line associated blood stream infectio n, DVT/Pulmonary embolism, ICU delirium and UTI. I spent 30 minutes actively involved in the care and management of this patient. Sachin Ward MD [facility] DEPARTMENT: [id number] ICU NEURO Place of Service:- Inpatient Date of Service: 10/25/2014 CSN: [id number] Suggested Modifier: None Suggested CPT: TO PERSONNEL COUNSELOR RELEVANT DATA: Last Vitals: BP 112/66 | Pulse 67 | Temp 36.9 C (98.4 F) | RR 23 | Ht 1.549 m (5' 1") | Wt 97 kg (213 lb 13.5 oz) | SpO2 99% | BMI 40.43 kg/(m^2) Intake/Output Summary (Last 24 hours) at 10/25/14 1535 Last data filed at 10/25/14 1500 Gross per 24 hour Intake 3802 ml Output 2110 ml Net 1692 ml Recent Labs 10/24/14 1822 10/25/14 0207 NA 140 141 K 4.4 4.1 CL 112* 112* BICARB 20* 22 BUN 16 13 CR 0.70 0.63 CA 8.7 8.7 PO4 -- 3.0 ALB -- 3.2* Recent Labs 10/24/14 1822 10/25/14 0207 WBC 21.97* 30.79* HB 10.7* 10.2* HCT 35.2* 34.4* PLT 403* 393 Efrain, Becca Hand MD - 10/25/2014 12:37 PM PDTNSICU ATTENDING Author: Becac Alegria MD I saw and evaluated the patient at the bedside with the mid-level provider. I have reviewed all relevant meds, labs and radiology data. 24h events: Underwent MRI scan - cisterns appear tight, so on hydrocephalus monitoring. PE: Neuro: A&O x3. Language clear and fluent. PERRL. EOMI. Visual barreto full. Face symmetric. Hearing intact. TUP midline. Strength symmetric, 5/5. No sensory loss. No cerebellar signs. A/P: 44 y.o. s/p suboccipital craniotomy and resection of 4th ventricle mass. Patients Hospital Problem List: Active Hospital Problems * No active hospital problems. * 1. 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 Keep wound clean and dry. Frequent neuro checks. At risk for hydrocephalus. On dexa methasone, slow taper per neurosurgery. Pain Control: prn oxycodone and acetaminophen. 2. CV: Blood pressure goals: MAP>65 mmHg, SBP< 160 mmHg. Hemodynamically stable. 3. Pulm: Extubated, no current issues. Encourage IS 4. GI/Endo: Advance diet as tolerated. Continue sliding scale insulin with goal BG<200 5. Renal: Replete electrolyes as needed 6. Heme: Monitor H&H 7. ID: Afebrile, perioperative antibiotics. 8. Proph: DVT proph with SCDs. 9. Lines: PIVs. Remove matos. PT/OT/ST and mobilize pt to chair This patient is in the neuro ICU and is being treated for central nervous system failure. s he is at high risk for the following: cerebral edema, hydrocephalus and intracerebral hemorr [place]; arrhythmia; dysphagia, ICU delirium and skin deconditioning including pressure ulcer a nd requires frequent monitoring. Becca Alegria MD I spent 35 minutes in direct care and management of this patient who is critically ill with over 50% spent at the patient s beside, reviewing data, discussing the patient s care w ith other medical staff, charting, and discussion with treatment decision maker. [facility] DEPARTMENT: [id number] CRITICAL CARE Place of Service: Inpatient Date of Service: 10/25/2014 CSN: [id number] Suggested Level of Care: 40039 - CRITICAL CARE, 1ST HOUR EACH DAY Kareen Martinez MD - 10/25/2014 9:15 AM PDT NEUROSURGERY PROGRESS NOTE Author: KAREEN YOUNG MD Today's Date: 10/25/2014 Attending Physician: Bart Graham MD INTERVAL UPDATE: -OR yesterday for SOC and resection of 4th ventricular mass. -Doing well overnight. No significant events. OBJECTIVE: Vital signs, labs, and medications all reviewed in patient chart. NEUROLOGICAL EXAM: Awake, alert, orient to self, [facility], and March Speech fluent, answers appropriately PERRL, EOMI Face symmetric, TML No pronator drift, no FTN dysmetria Full strength in all 4 extremities SILT Incision clean/dry/intact, flat RADIOLOGY: CT last night shows good resolution of blood, minimal remaining SDH. ASSESSMENT/PLAN: 44 y.o. female HD#1 with history of 4th ventricular mass, now POD#1 from suboccipital crani otomy and resection of 3rd ventricular mass. -Remain in ICU at least another day for hydrocephalus watch. -Q1H neurochecks. -Slow taper dexamethasone. -Pain control. -Keep incision clean and dry. KAREEN YOUNG MD Neurological Surgery, PGY-2 Torito Pike PA - 10/25/2014 7:35 AM PDT NSICU Daily Progress Note Author: TORITO GONG, PAC Date of Admission: 10/25/2014 ICU Attending: Becca Alegria MD NSGY att: Dr. Graham ICU#1. POD#1. HPI: Mendoza Villegas is a 44yo female with a history of long standing headaches, anxiety, d epression, bipolar disorder, МАРИНА, and degenerative disc disease. Hx of Type 2 DM and is s/p lap band surgery following which pt states she lost ~200 lbs. She has noticed that her chron ic headaches are worsening in severity and are associated with photophobia and blurry vision . Work-up of her headaches revealed a heterogenously enhancing lesion along the floor of th e fourth ventricle on MRI. She was seen and evaluated by Dr. Bart Graham and is now POD # 1 s/p midline suboccipital craniectomy for resection of fourth ventricular lesion. Frozen section suggests subependymom a. 24 hr events: admitted ~1999 last eron. Pt has been stable overnight. HOB at 45. -elevated blood glucose to 194 -MRI brain tumor eval done this morning--stable post op changes, 4th vent mass "not well-vi sualized." PE: Last Vitals: BP 114/57 | Pulse 70 | Temp 36.8 C (98.2 F) | RR 19 | Ht 1.549 m (5' 1 ") | Wt 97 kg (213 lb 13.5 oz) | SpO2 96% | BMI 40.43 kg/(m^2) 24 Hour Vital Min/Max: Systolic (24hrs), Av mmHg, Min:102 mmHg, Max:159 mmHg Diastolic (24hrs), Av mmHg, Min:57 mmHg, Max:79 mmHg Pulse Min: 52 Max: 85 Temp Min: 36.8 C (98.2 F) Max: 36.9 C (98.4 F) Resp Min: 16 Max: 28 SpO2 Min: 95 % Max: 100 % Intake/Output Summary (Last 24 hours) at 10/25/14 Last data filed at 10/25/14 1800 Gross per 24 hour Intake 1938 ml Output 1770 ml Net 168 ml Constitutional: WD/WN, NAD Admission Weight: Weight: 97 kg (213 lb 13.5 oz) (10/25/14 0500) Neurological: Constitutional: Alert & oriented x 3 Cranial Nerves: Pupils Equal, round and reactive to light. EOMI. VFF to confrontational curly ting.; Faces symmetric.; V1-V3 intact bilaterally. Tongue protrudes midline. + cough, + gali ulder shrug Motor: No pron drift. Wiggles toes, squeezes hands, brisker on R than L Sensation: grossly intact to light touch throughout. Coord: FTN intact bilat. No dysmetria, no cerebellar signs. HEENT: - NCAT, some facial edema Cardiovascular: - Rate, rhythm, regular. No peripheral edema. Respiratory: -respirations clear on RA. GI: abd soft, NT/ND /Renal: Matos in place, yellow urine MSK: ext warm, well perfused, no edema, cyanosis, or clubbing Skin: - No rashes nor significant breakdown; Problem List Patient Active Problem List Diagnosis 4th ventricular mass of brain Assessment and Plan: 44 y.o. female with 4th ventricular lesion Neurological: # Post neurosurgical procedure # Intracranial tumor # MARTINEZ # anxiety # depression -Admit to NSICU, q 1 neurochecks -Post-op CT and MRI -dexamethasone 4mg q6--slow taper ordered. -medication [employer] DI[employer]NOSTIC SUPPORT SPECIALIST: Geodon 160mg qHS, tramadol 50mg q6hr prn (holding), topiramate 50mg bid, l orazepam 1mg q6hr (giving only 0.5), lithium carbonate 600mg qHS, celecoxib 200mg qAM (holdi ng), ergocalciferol 50,000 once a week, gabapentin 900mg qHS, duloxetine 60mg qAM, bupropion 300mg qAM - Na goal 135-145 -Pain control with APAP and Oxycodone and dilaudid -Mobilize OOB. PT/OT. Cardiovascular: -Goal SBP < 160 -Blood pressure management with prn PO hydralazine -Continue to monitor on telemetry Respiratory: # At risk for atelectasis No active issues. Continue Incentive Spirometry 10x hr. GI/Nutrition: # At risk for constipation/ileus # At risk for NV - Diet: Regular diet - [facility] bowel protocol - MIVF: Normal saline w/ 20 mEq K+ - PRN Zofran and Reglan - GI Prophylaxis:patient takes lansoprazole 30mg qHS at home, giving 40mg omeprazole here / Renal: # At risk for urinary retention # At risk for electrolyte deficiencies - Matos: in place, remove today. -monitor with bladder scan and straight cath PRN - Daily renal function sets - Sodium goal: 135-145 - Replete electrolye deficiencies as needed ID/HO: # At risk for DVT/PE # Leukocytosis but no fever, no other clinical suspicion for infection -SCDs for DVT prophy -Daily CBC - Anderson culture for fever >/ 38.3 Endocrine: # At risk for hyperglycemia, stress related. Hx DM-johnathon 2. -SSI for CBG >140 -EndoTool for CBG >180 Musculoskeletal / Skin: # At risk for skin breakdown - Routine decubitus ulcer prevention per Geraldo scale - PT/OT as indicated Routine ICU Care: still 12# k Lines/Tubes/Drains: L radial A line, IJ CVC line, PIVs on hands bilaterally, matos Feeding: Regular diet Analgesia: APAP, oxycodone, dilaudid PRN Sedation: not indicated Thromboprophylaxis: SCDs Head of bed: 45 degrees Ulcer prophylaxis: not clinically indicated Glycemic control: SQ sliding scale Disposition: NSICU Code: Full Pt is critically ill. At risk for cerebral edema, post-op hemorrhage, wound infection, DVT /PE. I have personally and independently spent 70 min CCT involved in pt's care and mgmt. This patient has been staffed with Dr. Alegria, attending physician, who agrees with the ab ove assessment and plan. 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 No acute concerns. VITAL SIGNS: BP 164/90 | Pulse 65 | Temp 37.2 C (99 F) | RR 23 | Ht 1.537 m (5' 0.5") | Wt 95.5 kg ( 210 lb 8.6 oz) | SpO2 100% | BMI 40.43 kg/(m^2) PHYSICAL EXAM FINDINGS: Drowsy, but opens eyes and regards to voice Follows commands x4 PERRL, conjugate Moves all extremities to command, wiggles feet, sqeezes with hands Brisker on the right side than left POST OPERATIVE IMAGING: Head CT: Pending. A/P: Neurologically stable. Continue care: - Neuro checks q 1 hour - Keep incision and dressings C/D/I. - Maintain adequate analgesia with goal RASS 0 - SBP 100-160 - ADAT - Utilize bowel regimen for goal 1 BM per 24 hours - SCDs while in bed Kareen Young M.D. 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 I agree with her assessment and the plan as do cumented. I have discussed findings and plan of care with the primary team and the consultants invol ed. (Relevant data is listed at the bottom of this note). CC / Hx / Last 24hr: s/p 1) Suboccipital craniectomy and C1 laminectomy 2) Resection of fo urth ventricular mass; Tium mesh cranioplasty Patient Active Problem List Diagnosis Neoplasm of brain PMH: Bipolar, anxiety, headaches , GERD, asthma Home meds: Ziprasidone, Tramadol, Topiramate, Lorazepam, [place], Lansoprazole, Dilaudid, Celecoxib, g abapentin, duloxetine, bupropion, apap, albuterol 10/[address] post op: Expected postoperative changes. No hemorrhage. No acute process Please see Dr. Oneil's note for exam details Plan: # s/p crani for C1 Lami and 4th ventricular mass; neurochecks in ICU, goal SBP<160; dexamet hasone # Anemia: 35 # МАРИНА: home CPAP # Asthma: Albuterol prn # GERD: omeprazole # Advance diet - passed bedside swallow # Chronic Headaches/home opioids: continue gabapentin # Bipolar: Restart Wellbutrin, [place], Duloxetine, Ziprasidone, and lorazepam (prn) # Lines: arterial line, CVL (subclavian), matos, PIV Relevant Risks: This patient is currently at risk for the following: cerebral edema, hy drocephalus, intracerebral hemorrhage and seizure; central line associated blood stream infe ction, DVT/Pulmonary embolism, ICU delirium and UTI. I spent 65 minutes actively involved in the care and management of this patient. Sachin Ward MD [facility] DEPARTMENT: [id number] ICU NEURO Place of Service:- Inpatient Date of Service: erEDICAL RECORD NUMBER [id number] CSN: [id number] Suggested Modifier: None Suggested CPT: TO PERSONNEL COUNSELOR RELEVANT DATA: Last Vitals: BP 139/80 | Pulse 79 | Temp 36.8 C (98.2 F) | RR 16 | Ht 1.537 m (5' 0.5") | Wt 92 kg (202 lb 13.2 oz) | SpO2 98% | BMI 38.94 kg/(m^2) Intake/Output Summary (Last 24 hours) at 10/24/14 1819 Last data filed at 10/24/14 1715 Gross per 24 hour Intake 2400 ml Output 550 ml Net 1850 ml Recent Labs 10/24/14 1321 NA 140 K 3.6 CL 113* / /Recent Labs 10/24/14 1321 HCT/ 28.9* / documented in this enc ounter Plan of Treatment Not on filedocumented as of this encounter Procedures + +--------+ + + + | Procedure Name | Priori | Date/Time | Associated Diagnosis | Comments | | | ty | | | | + +--------+ + + + | PROCEDURE NOTE | Routin | 09/05/2015 | | Results for this | | | e | 3:10 PM | | procedure are in the | | | | PST | | results section. | + +--------+ + + + | PROCEDURE NOTE | Routin | 09/05/2015 | | Results for this | | | e | 3:07 PM | | procedure are in the | | | | PST | | results section. | + +--------+ + + + | CAPILLARY BLOOD | Routin | 10/28/2014 | | Results for this | | GLUCOSE (NO CHG), | e | 12:23 PM | | procedure are in the | | POC | | PDT | | results section. | + +--------+ + + + | CAPILLARY BLOOD | Routin | 10/28/2014 | | Results for this | | GLUCOSE (NO CHG), | e | 8:01 AM | | procedure are in the | | POC | | PDT | | results section. | + +--------+ + + + | CBC (HEMOGRAM) ONLY | Urgent | 10/28/2014 | | Results for this | | | | 7:46 AM | | procedure are in the | | | | PDT | | results section. | + +--------+ + + + | RENAL FUNCTION SET | Urgent | 10/28/2014 | | Results for this | | (NA,K,CL,CO2,BUN,CRE | | 7:46 AM | | procedure are in the | | AT,GLUC,CA,PHOS,ALB | | PDT | | results section. | | ) | | | | | + +--------+ + + + | CBC ONLY | Urgent | 10/28/2014 | | Results for this | | | | 7:46 AM | | procedure are in the | | | | PDT | | results section. | + +--------+ + + + | CAPILLARY BLOOD | Routin | 10/27/2014 | | Results for this | | GLUCOSE (NO CHG), | e | 9:50 PM | | procedure are in the | | POC | | PDT | | results section. | + +--------+ + + + | CAPILLARY BLOOD | Routin | 10/27/2014 | | Results for this | | GLUCOSE (NO CHG), | e | 7:32 PM | | procedure are in the | | POC | | PDT | | results section. | + +--------+ + + + | CAPILLARY BLOOD | Routin | 10/27/2014 | | Results for this | | GLUCOSE (NO CHG), | e | 2:40 PM | | procedure are in the | | POC | | PDT | | results section. | + +--------+ + + + | CBC (HEMOGRAM) ONLY | Urgent | 10/27/2014 | | Results for this | | | | 6:46 AM | | procedure are in the | | | | PDT | | results section. | + +--------+ + + + | RENAL FUNCTION SET | Urgent | 10/27/2014 | | Results for this | | (NA,K,CL,CO2,BUN,CRE | | 6:46 AM | | procedure are in the | | AT,GLUC,CA,PHOS,ALB | | PDT | | results section. | | ) | | | | | + +--------+ + + + | CBC ONLY | Urgent | 10/27/2014 | | Results for this | | | | 6:46 AM | | procedure are in the | | | | PDT | | results section. | + +--------+ + + + | CAPILLARY BLOOD | Routin | 10/27/2014 | | Results for this | | GLUCOSE (NO CHG), | e | 6:39 AM | | procedure are in the | | POC | | PDT | | results section. | + +--------+ + + + | CAPILLARY BLOOD | Routin | 10/26/2014 | | Results for this | | GLUCOSE (NO CHG), | e | 10:00 PM | | procedure are in the | | POC | | PDT | | results section. | + +--------+ + + + | CAPILLARY BLOOD | Routin | 10/26/2014 | | Results for this | | GLUCOSE (NO CHG), | e | 6:51 PM | | procedure are in the | | POC | | PDT | | results section. | + +--------+ + + + | CAPILLARY BLOOD | Routin | 10/26/2014 | | Results for this | | GLUCOSE (NO CHG), | e | 11:57 AM | | procedure are in the | | POC | | PDT | | results section. | + +--------+ + + + | OPERATION RECORD | | 10/26/2014 | | Results for this | | | | 9:22 AM | | procedure are in the | | | | PDT | | results section. | + +--------+ + + + | CAPILLARY BLOOD | Routin | 10/26/2014 | | Results for this | | GLUCOSE (NO CHG), | e | 7:57 AM | | procedure are in the | | POC | | PDT | | results section. | + +--------+ + + + | CAPILLARY BLOOD | Routin | 10/26/2014 | | Results for this | | GLUCOSE (NO CHG), | e | 1:07 AM | | procedure are in the | | POC | | PDT | | results section. | + +--------+ + + + | CBC (HEMOGRAM) ONLY | Urgent | 10/26/2014 | | Results for this | | | | 1:02 AM | | procedure are in the | | | | PDT | | results section. | + +--------+ + + + | RENAL FUNCTION SET | Urgent | 10/26/2014 | | Results for this | | (NA,K,CL,CO2,BUN,CRE | | 1:02 AM | | procedure are in the | | AT,GLUC,CA,PHOS,ALB | | PDT | | results section. | | ) | | | | | + +--------+ + + + | CBC ONLY | Urgent | 10/26/2014 | | Results for this | | | | 1:02 AM | | procedure are in the | | | | PDT | | results section. | + +--------+ + + + | CAPILLARY BLOOD | Routin | 10/25/2014 | | Results for this | | GLUCOSE (NO CHG), | e | 5:52 PM | | procedure are in the | | POC | | PDT | | results section. | + +--------+ + + + | CAPILLARY BLOOD | Routin | 10/25/2014 | | Results for this | | GLUCOSE (NO CHG), | e | 1:33 PM | | procedure are in the | | POC | | PDT | | results section. | + +--------+ + + + | CAPILLARY BLOOD | Routin | 10/25/2014 | | Results for this | | GLUCOSE (NO CHG), | e | 12:16 PM | | procedure are in the | | POC | | PDT | | results section. | + +--------+ + + + | CAPILLARY BLOOD | Routin | 10/25/2014 | | Results for this | | GLUCOSE (NO CHG), | e | 8:03 AM | | procedure are in the | | POC | | PDT | | results section. | + +--------+ + + + | MRI BRAIN TUMOR | Urgent | 10/25/2014 | | Results for this | | EVALUATION WWO | | 7:45 AM | | procedure are in the | | CONTRAST | | PDT | | results section. | + +--------+ + + + | CBC (HEMOGRAM) ONLY | Urgent | 10/25/2014 | | Results for this | | | | 2:07 AM | | procedure are in the | | | | PDT | | results section. | + +--------+ + + + | RENAL FUNCTION SET | Urgent | 10/25/2014 | | Results for this | | (NA,K,CL,CO2,BUN,CRE | | 2:07 AM | | procedure are in the | | AT,GLUC,CA,PHOS,ALB | | PDT | | results section. | | ) | | | | | + +--------+ + + + | CBC ONLY | Urgent | 10/25/2014 | | Results for this | | | | 2:07 AM | | procedure are in the | | | | PDT | | results section. | + +--------+ + + + | HEMOGLOBIN A1C, | Urgent | 10/25/2014 | | Results for this | | BLOOD | | 2:07 AM | | procedure are in the | | | | PDT | | results section. | + +--------+ + + + | CT HEAD WO CONTRAST | Urgent | 2014 | | Results for this | | | | 7:38 PM | | procedure are in the | | | | PDT | | results section. | + +--------+ + + + | X-RAY PORTABLE CHEST | Routin | 2014 | | Results for this | | 1 VIEW | e | 6:53 PM | | procedure are in the | | | | PDT | | results section. | + +--------+ + + + | CBC (HEMOGRAM) ONLY | Urgent | 2014 | | Results for this | | | | 6:22 PM | | procedure are in the | | | | PDT | | results section. | + +--------+ + + + | BASIC METABOLIC SET | Urgent | 2014 | | Results for this | | (NA, K, CL, TCO2, | | 6:22 PM | | procedure are in the | | BUN, CR, GLU, CA) | | PDT | | results section. | + +--------+ + + + | UA, DIPSTICK ONLY | Urgent | 2014 | | Results for this | | | | 6:22 PM | | procedure are in the | | | | PDT | | results section. | + +--------+ + + + | URINE, MICROSCOPIC | Urgent | 2014 | | Results for this | | EXAM | | 6:22 PM | | procedure are in the | | | | PDT | | results section. | + +--------+ + + + | URINE SCREEN FOR | Urgent | 2014 | | Results for this | | CULTURE | | 6:22 PM | | procedure are in the | | | | PDT | | results section. | + +--------+ + + + | CBC ONLY | Urgent | 2014 | | Results for this | | | | 6:22 PM | | procedure are in the | | | | PDT | | results section. | + +--------+ + + + | LACTATE (ART), POC | Routin | 2014 | Neoplasm of brain | Results for this | | ISTAT | e | 1:21 PM | (HCC) | procedure are in the | | | | PDT | | results section. | + +--------+ + + + | HEMOGLOBIN-COOX, POC | Routin | 2014 | Neoplasm of brain | Results for this | | | e | 1:21 PM | (HCC) | procedure are in the | | | | PDT | | results section. | + +--------+ + + + | SODIUM, POC | Routin | 2014 | Neoplasm of brain | Results for this | | | e | 1:21 PM | (HCC) | procedure are in the | | | | PDT | | results section. | + +--------+ + + + | POTASSIUM, POC | Routin | 2014 | Neoplasm of brain | Results for this | | | e | 1:21 PM | (HCC) | procedure are in the | | | | PDT | | results section. | + +--------+ + + + | GLUCOSE, POC | Routin | 2014 | Neoplasm of brain | Results for this | | | e | 1:21 PM | (HCC) | procedure are in the | | | | PDT | | results section. | + +--------+ + + + | ARTERIAL BLOOD GAS, | Routin | 2014 | Neoplasm of brain | Results for this | | POC | e | 1:21 PM | (HCC) | procedure are in the | | | | PDT | | results section. | + +--------+ + + + | CORNELIO POC | Routin | 2014 | Neoplasm of brain | Results for this | | | e | 1:21 PM | (HCC) | procedure are in the | | | | PDT | | results section. | + +--------+ + + + | LUCHO ANA LUISA MOULTON POC | Routin | 2014 | Neoplasm of brain | Results for this | | | e | 1:21 PM | (HCC) | procedure are in the | | | | PDT | | results section. | + +--------+ + + + | FRAMELESS | Electi | 2014 | Neoplasm of | | | STEREOTACTIC | ve | 12:42 PM | uncertain behavior | | | CRANIOTOMY FOR TUMOR | Surgic | PDT | of brain and spinal | | | RESECTION | al | | cord (HCC) | | + +--------+ + + + +---+--------+ | | | | | Specia | | | l | | | Needs | | | | | | [facility] | | | NEURO | | | CI | | | ICU | | | POST-O | | | P | +---+--------+ + +--------+ +---+ + | MRI BRAIN W CONTRAST | Routin | 2014 | | Results for this | | - FRAMELESS | e | 7:48 AM | | procedure are in the | | STEREOTATIC ONLY | | PDT | | results section. | + +--------+ +---+ + | ANTIBODY SCREEN | Urgent | 2014 | | Results for this | | | | 7:00 AM | | procedure are in the | | | | PDT | | results section. | + +--------+ +---+ + | TYPE AND SCREEN | Urgent | 2014 | | Results for this | | | | 7:00 AM | | procedure are in the | | | | PDT | | results section. | + +--------+ +---+ + | ABO & RH TYPE | Urgent | 2014 | | Results for this | | | | 7:00 AM | | procedure are in the | | | | PDT | | results section. | + +--------+ +---+ + | CARDIOLOGY | | 2014 | | Results for this | | | | 12:00 AM | | procedure are in the | | | | PDT | | results section. | + +--------+ +---+ + | INTRAOPERATIVE NEURO | Routin | 2014 | | Results for this | | MONITORING | e | | | procedure are in the | | | | | | results section. | + +--------+ +---+ + | SURGICAL PATHOLOGY | Routin | 2014 | | Results for this | | | e | | | procedure are in the | | | | | | results section. | + +--------+ +---+ + documented in this encounter Results PROCEDURE NOTE (09/05/2015 3:10 PM PST)PROCEDURE NOTE (09/05/2015 3:07 PM PST) + + | Transcriptions | + + | Other, Faculty - 10/29/2014 11:15 PM PDT | + + CAPILLARY BLOOD GLUCOSE (NO CHG), POC (10/28/2014 12:23 PM PDT) + +---------+ + + + | Component | Value | Ref Range | Performed | Pathologist | | | | | At | Signature | + +---------+ + + + | BLOOD | 127 (H) | 60 - 99 mg/dL | [facility] - | | | GLUCOSE, | | | [facility] | | | POC | | | [facility] | | | | | | OF CARE | | | | | | TESTS | | + +---------+ + + + + + | Specimen | + + | | + + + + + + + | Performing | Address | City/State/Zipcode | Phone Number | | Organization | | | | + + + + + | [facility] | [address] | [place], [place] | | | [facility] | [address] | [phone] | | | TESTS | | | | + + + + + CAPILLARY BLOOD GLUCOSE (NO CHG), POC (10/28/2014 8:01 AM PDT) + +---------+ + + + | Component | Value | Ref Range | Performed | Pathologist | | | | | At | Signature | + +---------+ + + + | BLOOD | 130 (H) | 60 - 99 mg/dL | [facility] - | | | GLUCOSE, | | | [place] | | | POC | | | [facility] | | | | | | OF CARE | | | | | | TESTS | | + +---------+ + + + + + | Specimen | + + | | + + + + + + + | Performing | Address | City/State/Zipcode | Phone Number | | Organization | | | | + + + + + | [facility] | [address] | [place], [place] | | | [facility] | [address] | [phone] | | | TESTS | | | | + + + + + CBC (HEMOGRAM) ONLY (10/28/2014 7:46 AM PDT) + + + + + + | Component | Value | Ref Range | Performed | Pathologist | | | | | At | Signature | + + + + + + | WHITE CELL | 16.03 (H) | 4.40 - 11.00 | [facility] | | | COUNT | | K/cu mm | LABORATORY | | | | | | SERVICES, | | | | | | CORE | | + + + + + + | RED CELL | 4.26 | 4.00 - 5.20 | [facility] | | | COUNT | | M/cu mm | LABORATORY | | | | | | SERVICES, | | | | | | CORE | | + + + + + + | HEMOGLOBIN | 9.6 (L) | 12.0 - 16.0 | [facility] | | | | | g/dL | LABORATORY | | | | | | SERVICES, | | | | | | CORE | | + + + + + + | HEMATOCRIT | 32.6 (L) | 36.0 - 46.0 % | [facility] | | | | | | LABORATORY | | | | | | SERVICES, | | | | | | CORE | | + + + + + + | MCV | 76.5 (L) | 80.0 - 96.0 fL | [facility] | | | | | | LABORATORY | | | | | | SERVICES, | | | | | | CORE | | + + + + + + | MCHC | 29.4 | 33.0 - 35.5 | [facility] | | | | | g/dL | LABORATORY | | | | | | SERVICES, | | | | | | CORE | | + + + + + + | RDW SD | 48.1 (H) | 35.1 - 46.3 fL | [facility] | | | | | | LABORATORY | | | | | | SERVICES, | | | | | | CORE | | + + + + + + | PLATELET | 300 | 150 - 400 K/cu | [facility] | | | COUNT | | mm | LABORATORY | | | | | | SERVICES, | | | | | | CORE | | + + + + + + | MPV | 9.4 (L) | 9.7 - 12.3 fL | [facility] | | | | | | LABORATORY | | | | | | SERVICES, | | | | | | CORE | | + + + + + + | NRBC% | 0.2 | 0.0 - 0.3 % | [facility] | | | | | | LABORATORY | | | | | | SERVICES, | | | | | | CORE | | + + + + + + | NRBC# | 0.03 (H) | 0.00 - 0.02 | [facility] | | | | | K/cu mm | LABORATORY | | | | | | SERVICES, | | | | | | CORE | | + + + + + + + + | Specimen | + + | Blood - Blood | + + + + + + + | Performing | Address | City/State/Zipcode | Phone Number | | Organization | | | | + + + + + | [facility] | [address] | [place] [address] | | | SERVICES, CORE | [address] | | | + + + + + RENAL FUNCTION SET (NA,K,CL,CO2,BUN,CREAT,GLUC,CA,PHOS,ALB ) (10/28/2014 7:46 AM PDT) + +---------+ + + + | Component | Value | Ref Range | Performed | Pathologist | | | | | At | Signature | + +---------+ + + + | GLUCOSE, | 118 (H) | 60 - 99 mg/dL | [facility] | | | PLASMA | | | LABORATORY | | | (LAB) | | | SERVICES, | | | | | | CORE | | + +---------+ + + + | BUN, PLASMA | 19 | 6 - 20 mg/dL | [facility] | | | (LAB) | | | LABORATORY | | | | | | SERVICES, | | | | | | CORE | | + +---------+ + + + | CREATININE | 0.61 | 0.60 - 1.10 | [facility] | | | PLASMA | | mg/dL | LABORATORY | | | (LAB) | | | SERVICES, | | | | | | CORE | | + +---------+ + + + | EGFR | >60 | >60 mL/min | [facility] | | | - | | | LABORATORY | | | KYRGYZ | | | SERVICES, | | | | | | CORE | | + +---------+ + + + | EGFR NON | >60 | >60 mL/min | [facility] | | | -TINY | | | LABORATORY | | | RICAN | | | SERVICES, | | | | | | CORE | | + +---------+ + + + | SODIUM, | 141 | 136 - 145 | [facility] | | | PLASMA | | mmol/L | LABORATORY | | | (LAB) | | | SERVICES, | | | | | | CORE | | + +---------+ + + + | POTASSIUM, | 4.4 | 3.4 - 5.0 | [facility] | | | PLASMA | | mmol/L | LABORATORY | | | (LAB) | | | SERVICES, | | | | | | CORE | | + +---------+ + + + | CHLORIDE, | 110 (H) | 97 - 108 mmol/L | [facility] | | | PLASMA | | | LABORATORY | | | (LAB) | | | SERVICES, | | | | | | CORE | | + +---------+ + + + | TOTAL CO2, | 24 | 21 - 32 mmol/L | [facility] | | | PLASMA | | | LABORATORY | | | (LAB) | | | SERVICES, | | | | | | CORE | | + +---------+ + + + | CALCIUM, | 9.7 | 8.6 - 10.2 | [facility] | | | PLASMA | | mg/dL | LABORATORY | | | (LAB) | | | SERVICES, | | | | | | CORE | | + +---------+ + + + | ALBUMIN, | 3.0 (L) | 3.5 - 4.7 g/dL | [facility] | | | PLASMA | | | LABORATORY | | | (LAB) | | | SERVICES, | | | | | | CORE | | + +---------+ + + + | PHOSPHORUS, | 2.5 | 2.4 - 4.7 mg/dL | [facility] | | | PLASMA | | | LABORATORY | | | (LAB) | | | SERVICES, | | | | | | CORE | | + +---------+ + + + | POTASSIUM | No Hemo | | [facility] | | | CMNT | | | LABORATORY | | | | | | SERVICES, | | | | | | CORE | | + +---------+ + + + | ANION GAP | 7 | mmol/L | [facility] | | | | | | LABORATORY | | | | | | SERVICES, | | | | | | CORE | | + +---------+ + + + | ANION | 9 | 4 - 11 mmol/L | [facility] | | | GAP(ALB | | | LABORATORY | | | CORRECTED) | | | SERVICES, | | | | | | CORE | | + +---------+ + + + + + | Specimen | + + | Blood - Blood | + + + + + | Narrative | Performed At | + + + | GFR is estimated using the MDRD equation recommended by the | [facility] | | National Kidney Disease Education Program. Estimated GFR | LABORATORY | | Interpretive Information: <60 mL/min/1.73 sq m | SERVICES, CORE | | Chronic Kidney Disease <15 mL/min/1.73 sq m | | | Kidney Failure Estimated GFR greater that 60 mL/min/1.73 sq m is of | | | limited clinical value. The MDRD equation is not valid in the | | | following situations: - Patients under 18 years of age - Severe | | | malnutrition or obesity - Vegetarian diet - Rapidly changing kidney | | | function | | + + + + + + + + | Performing | Address | City/State/Zipcode | Phone Number | | Organization | | | | + + + + + | [facility] | [address] | [place] [address] | | | G[facility]RIELLE MIRELES | [address] | | | + + + + + CAPILLARY BLOOD GLUCOSE (NO CHG), POC (10/27/2014 9:50 PM PDT) + +---------+ + + + | Component | Value | Ref Range | Performed | Pathologist | | | | | At | Signature | + +---------+ + + + | BLOOD | 162 (H) | 60 - 99 mg/dL | [facility] - | | | GLUCOSE, | | | [facility] | | | POC | | | [facility] | | | | | | OF CARE | | | | | | TESTS | | + +---------+ + + + + + | Specimen | + + | | + + + + + + + | Performing | Address | City/State/Zipcode | Phone Number | | Organization | | | | + + + + + | [facility] | [address] | [place], [place] | | | [facility] | [address] | [address] | | | TESTS | | | | + + + + + CAPILLARY BLOOD GLUCOSE (NO CHG), POC (10/27/2014 7:32 PM PDT) + +---------+ + + + | Component | Value | Ref Range | Performed | Pathologist | | | | | At | Signature | + +---------+ + + + | BLOOD | 117 (H) | 60 - 99 mg/dL | [facility] - | | | GLUCOSE, | | | [place] | | | POC | | | [facility] | | | | | | OF CARE | | | | | | TESTS | | + +---------+ + + + + + | Specimen | + + | | + + + + + + + | Performing | Address | City/State/Zipcode | Phone Number | | Organization | | | | + + + + + | [facility] | [address] | [place], [place] | | | [facility] | [facility] | [phone] | | | TESTS | | | | + + + + + CAPILLARY BLOOD GLUCOSE (NO CHG), POC (10/27/2014 2:40 PM PDT) + +---------+ + + + | Component | Value | Ref Range | Performed | Pathologist | | | | | At | Signature | + +---------+ + + + | BLOOD | 184 (H) | 60 - 99 mg/dL | [facility] | | | GLUCOSE, | | | [facility] | | | POC | | | [facility] | | | | | | OF CARE | | | | | | TESTS | | + +---------+ + + + + + | Specimen | + + | | + + + + + + + | Performing | Address | City/State/Zipcode | Phone Number | | Organization | | | | + + + + + | [facility] | [address] | [place], [place] | | | [facility] | [facility] | [address] | | | TESTS | | | | + + + + + CBC (HEMOGRAM) ONLY (10/27/2014 6:46 AM PDT) + + + + + + | Component | Value | Ref Range | Performed | Pathologist | | | | | At | Signature | + + + + + + | WHITE CELL | 18.52 (H) | 4.40 - 11.00 | [facility] | | | COUNT | | K/cu mm | LABORATORY | | | | | | SERVICES, | | | | | | CORE | | + + + + + + | RED CELL | 4.29 | 4.00 - 5.20 | [facility] | | | COUNT | | M/cu mm | LABORATORY | | | | | | SERVICES, | | | | | | CORE | | + + + + + + | HEMOGLOBIN | 9.8 (L) | 12.0 - 16.0 | [facility] | | | | | g/dL | LABORATORY | | | | | | SERVICES, | | | | | | CORE | | + + + + + + | HEMATOCRIT | 34.1 (L) | 36.0 - 46.0 % | [facility] | | | | | | LABORATORY | | | | | | SERVICES, | | | | | | CORE | | + + + + + + | MCV | 79.5 (L) | 80.0 - 96.0 fL | [facility] | | | | | | LABORATORY | | | | | | SERVICES, | | | | | | CORE | | + + + + + + | MCHC | 28.7 | 33.0 - 35.5 | [facility] | | | | | g/dL | LABORATORY | | | | | | SERVICES, | | | | | | CORE | | + + + + + + | RDW SD | 50.0 (H) | 35.1 - 46.3 fL | [facility] | | | | | | LABORATORY | | | | | | SERVICES, | | | | | | CORE | | + + + + + + | PLATELET | 295 | 150 - 400 K/cu | [facility] | | | COUNT | | mm | LABORATORY | | | | | | SERVICES, | | | | | | CORE | | + + + + + + | MPV | 9.6 (L) | 9.7 - 12.3 fL | [facility] | | | | | | LABORATORY | | | | | | SERVICES, | | | | | | CORE | | + + + + + + | NRBC% | 0.0 | 0.0 - 0.3 % | [facility] | | | | | | LABORATORY | | | | | | SERVICES, | | | | | | CORE | | + + + + + + | NRBC# | 0.00 | 0.00 - 0.02 | [facility] | | | | | K/cu mm | LABORATORY | | | | | | [facility], | | | | | | CORE | | + + + + + + + + | Specimen | + + | Blood - Blood | + + + + + + + | Performing | Address | City/State/Zipcode | Phone Number | | Organization | | | | + + + + + | [facility] | [address] | [place] [address] | | | [facility], CORE | [address] | | | + + + + + RENAL FUNCTION SET (NA,K,CL,CO2,BUN,CREAT,GLUC,CA,PHOS,ALB ) (10/27/2014 6:46 AM PDT) + +---------+ + + + | Component | Value | Ref Range | Performed | Pathologist | | | | | At | Signature | + +---------+ + + + | GLUCOSE, | 127 (H) | 60 - 99 mg/dL | [facility] | | | PLASMA | | | LABORATORY | | | (LAB) | | | SERVICES, | | | | | | CORE | | + +---------+ + + + | BUN, PLASMA | 16 | 6 - 20 mg/dL | [facility] | | | (LAB) | | | LABORATORY | | | | | | SERVICES, | | | | | | CORE | | + +---------+ + + + | CREATININE | 0.60 | 0.60 - 1.10 | [facility] | | | PLASMA | | mg/dL | LABORATORY | | | (LAB) | | | SERVICES, | | | | | | CORE | | + +---------+ + + + | EGFR | >60 | >60 mL/min | [facility] | | | - | | | LABORATORY | | | K[facility] | | | SERVICES, | | | | | | CORE | | + +---------+ + + + | EGFR NON | >60 | >60 mL/min | [facility] | | | -TINY | | | LABORATORY | | | RICAN | | | SERVICES, | | | | | | CORE | | + +---------+ + + + | SODIUM, | 142 | 136 - 145 | [facility] | | | PLASMA | | mmol/L | LABORATORY | | | (LAB) | | | SERVICES, | | | | | | CORE | | + +---------+ + + + | POTASSIUM, | 4.0 | 3.4 - 5.0 | [facility] | | | PLASMA | | mmol/L | LABORATORY | | | (LAB) | | | SERVICES, | | | | | | CORE | | + +---------+ + + + | CHLORIDE, | 112 (H) | 97 - 108 mmol/L | [facility] | | | PLASMA | | | LABORATORY | | | (LAB) | | | SERVICES, | | | | | | CORE | | + +---------+ + + + | TOTAL CO2, | 22 | 21 - 32 mmol/L | [facility] | | | PLASMA | | | LABORATORY | | | (LAB) | | | SERVICES, | | | | | | CORE | | + +---------+ + + + | CALCIUM, | 9.3 | 8.6 - 10.2 | [facility] | | | PLASMA | | mg/dL | LABORATORY | | | (LAB) | | | SERVICES, | | | | | | CORE | | + +---------+ + + + | ALBUMIN, | 2.9 (L) | 3.5 - 4.7 g/dL | [facility] | | | PLASMA | | | LABORATORY | | | (LAB) | | | SERVICES, | | | | | | CORE | | + +---------+ + + + | PHOSPHORUS, | 2.3 (L) | 2.4 - 4.7 mg/dL | [facility] | | | PLASMA | | | LABORATORY | | | (LAB) | | | SERVICES, | | | | | | CORE | | + +---------+ + + + | POTASSIUM | No Hemo | | [facility] | | | CMNT | | | LABORATORY | | | | | | SERVICES, | | | | | | CORE | | + +---------+ + + + | ANION GAP | 8 | mmol/L | [facility] | | | | | | LABORATORY | | | | | | SERVICES, | | | | | | CORE | | + +---------+ + + + | ANION | 10 | 4 - 11 mmol/L | [facility] | | | GAP(ALB | | | LABORATORY | | | CORRECTED) | | | SERVICES, | | | | | | CORE | | + +---------+ + + + + + | Specimen | + + | Blood - Blood | + + + + + | Narrative | Performed At | + + + | GFR is estimated using the MDRD equation recommended by the | [facility] | | National Kidney Disease Education Program. Estimated GFR | LABORATORY | | Interpretive Information: <60 mL/min/1.73 sq m | SERVICES, CORE | | Chronic Kidney Disease <15 mL/min/1.73 sq m | | | Kidney Failure Estimated GFR greater that 60 mL/min/1.73 sq m is of | | | limited clinical value. The MDRD equation is not valid in the | | | following situations: - Patients under 18 years of age - Severe | | | malnutrition or obesity - Vegetarian diet - Rapidly changing kidney | | | function | | + + + + + + + + | Performing | Address | City/State/Zipcode | Phone Number | | Organization | | | | + + + + + | [facility] | [address] | [place] [address] | | | SERVICES, CORE | [address] | | | + + + + + CAPILLARY BLOOD GLUCOSE (NO CHG), POC (10/27/2014 6:39 AM PDT) + +---------+ + + + | Component | Value | Ref Range | Performed | Pathologist | | | | | At | Signature | + +---------+ + + + | BLOOD | 137 (H) | 60 - 99 mg/dL | [facility] - | | | GLUCOSE, | | | [place] | | | POC | | | [facility] | | | | | | OF CARE | | | | | | TESTS | | + +---------+ + + + + + | Specimen | + + | | + + + + + + + | Performing | Address | City/State/Zipcode | Phone Number | | Organization | | | | + + + + + | [facility] | [address] | [place], [place] | | | [facility] | [address] | [phone] | | | TESTS | | | | + + + + + CAPILLARY BLOOD GLUCOSE (NO CHG), POC (10/26/2014 10:00 PM PDT) + +---------+ + + + | Component | Value | Ref Range | Performed | Pathologist | | | | | At | Signature | + +---------+ + + + | BLOOD | 140 (H) | 60 - 99 mg/dL | [facility] - | | | GLUCOSE, | | | [place] | | | POC | | | [facility] | | | | | | OF CARE | | | | | | TESTS | | + +---------+ + + + + + | Specimen | + + | | + + + + + + + | Performing | Address | City/State/Zipcode | Phone Number | | Organization | | | | + + + + + | [facility] | [address] | [place], [place] | | | [facility] | [address] | [phone] | | | TESTS | | | | + + + + + CAPILLARY BLOOD GLUCOSE (NO CHG), POC (10/26/2014 6:51 PM PDT) + +---------+ + + + | Component | Value | Ref Range | Performed | Pathologist | | | | | At | Signature | + +---------+ + + + | BLOOD | 149 (H) | 60 - 99 mg/dL | [facility] | | | GLUCOSE, | | | [facility] | | | POC | | | [facility] | | | | | | OF CARE | | | | | | TESTS | | + +---------+ + + + + + | Specimen | + + | | + + + + + + + | Performing | Address | City/State/Zipcode | Phone Number | | Organization | | | | + + + + + | [facility] | [address] | [place], [place] | | | [facility] | [address] | [phone] | | | TESTS | | | | + + + + + CAPILLARY BLOOD GLUCOSE (NO CHG), POC (10/26/2014 11:57 AM PDT) + +---------+ + + + | Component | Value | Ref Range | Performed | Pathologist | | | | | At | Signature | + +---------+ + + + | BLOOD | 143 (H) | 60 - 99 mg/dL | [facility] - | | | GLUCOSE, | | | [place] | | | POC | | | [facility] | | | | | | OF CARE | | | | | | TESTS | | + +---------+ + + + + + | Specimen | + + | | + + + + + + + | Performing | Address | City/State/Zipcode | Phone Number | | Organization | | | | + + + + + | [facility] | [address] | [place], [place] | | | [facility] | [address] | [phone] | | | TESTS | | | | + + + + + OPERATION RECORD (10/26/2014 9:22 AM PDT) + + | Transcriptions | + + | Bart Graham MD - 2014 10:30 PM PDT Date of Service: 2014 Attending | | Surgeon: Bart Graham MD Automotive Consultant(s): Brady Conroy MD, | | PhD. Preoperative Diagnosis: Fourth ventricular mass.Postoperative | | Diagnosis: Fourth ventricular mass.Procedure Performed: 1. Suboccipital craniectomy | | and C1 laminectomy.2. Resection of 4th ventricular mass.3. Titanium mesh cranioplasty.4. | | Use of a high-powered operating microscope.5. Frameless stereotaxy.6. Intraoperative | | neuromonitoring with SSEP, MEP and EMG of cranial nerves IX through XII.Indication: | | Please see Epic notes.Procedure In Detail: The patient was identified in the | | preoperative area. Consent for surgery was confirmed and the site for surgery was | | marked. She was transferred to the operating room by the Anesthesia team, where general | | endotracheal anesthesia was induced without difficulty. An arterial line and central | | line were then placed, and she was placed in the Bhagat head machinist and flipped into | | the prone position on chest rolls. Her arms were tucked at her sides and all pressure | | points were carefully padded. We then registered the [employer] frameless stereotactic | | navigation system with excellent accuracy using surface landmarks. We then clipped a | | strip of hair in the midline with electric clippers and planned a midline incision from | | the inion to the spinous process of C2 with indelible ink. Her neck and her subocciput | | neck were then prepped and draped in the usual aseptic fashion. A team pause was held | | according to the preformatted script, all were in agreement and decision was made to | | proceed with surgery. The planned incision was opened sharply with a skin knife and | | carried down through the subcutaneous tissues with electrocautery. Cerebellar | | self-retaining retractors were placed and we opened the avascular plane in the midline. | | Monopolar electrocautery was used to elevate the suboccipital musculature off of the | | bone, and then we also exposed the lamina of C1. Once we exposed along C1 until we were | | able to palpate the ridge containing the vertebral artery. Once we had adequate | | exposure, we then used a 6 mm fluted ball to eggshell the suboccipital bone and it was | | then removed with a curette with Kerrison punches. We used a Waldron dissector to | | carefully dissect the dura off of the foramen magnum and the foramen magnum was opened | | until the edges of the bone were flush vertically. Once we had this suboccipital | | craniectomy complete, we then used the 6 mm fluted ball again to eggshell the lamina of | | C1 and we then performed a C1 laminectomy. Once the C1 laminectomy was complete, we | | then irrigated in the epidural space, confirmed epidural hemostasis, and turned our | | attention to the dural opening. The 15 blade was used to open the dura between the | | foramen magnum and C1 until we were in the subarachnoid space. We then used a Dauphin | | elevator and opened the dura superiorly in a Y-shaped fashion, and the dural flap was | | secured superiorly to the soft tissues with a stitch. We likewise secured the lateral | | dural leaflets. We placed cottonoid patties under the edges of the dura. We coagulated | | bleeding from the edges of the dura, and then we had epidural hemostasis we brought in | | the high-powered microscope and used it for the remainder of the operation. Under | | high-powered microscopic view, we lysed arachnoid adhesions between the tonsils and we | | then placed cottonoid patties over the tonsils and retracted between the tonsils with | | Rhoton micro dissectors. We were immediately able to identify the tumor that was | | arising from the 4th ventricle, and we were able to dissect and developed a plane | | between the tumor and the cerebellum. We sharply dissected in this plane with | | microscissors and advanced cottonoid patties between the tumor and the cerebellum. Once | | we had a significant amount of the tumor mobilized, we coagulated an area of the tumor, | | and dissected free a small amount that was submitted for frozen section. We then | | inspected the ventral surface of the tumor and we were able to separate part of the | | tumor from the floor of the 4th ventricle and we advanced cottonoid patties along the | | floor of the 4th ventricle to provide a barrier. We did notice that on the patient's | | left side there was some adhesion to the brainstem. Once we had mobilized the tumor on | | the patient's right side, we continued to work in the plane between the cerebellum and | | the tumor on the left side, and resected the tumor in several large pieces. Once we | | were around the left side of the tumor, we saw a large gush of CSF from the 4th | | ventricle. 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 We completely resected the tumor except for a small area | | that was adherent to the floor of the 4th ventricle in the brainstem and given the | | benign pathology we felt that it was safe to bipolar coagulate this area, and not | | attempt to separate it from the 4th ventricle due to the risk of neurologic morbidity. | | With the tumor resected, we copiously irrigated in the resection cavity and in the 4th | | ventricle, we noticed a small amount of bleeding from the the cerebellar tonsils was | | coagulated with bipolar electrocautery. Once we had obtained hemostasis, and we | | confirmed that there was no intracranial bleeding, we obtained a piece of non suturable | | DuraGen, and it was trimmed to fit the dural defect and tucked under the edges of the | | dura as an onlay. Our dural tack-up sutures were released and the dural leaflets were | | tacked to DuraGen with 4-0 Nurolon. Once the DuraGen was tacked in place, we irrigated | | in the wound an additional time, and we noted no active bleeding. We therefore trimmed | | another piece of DuraGen and placed this as an overlay over our craniectomy defect. | | Once this was in place, we dried the wounds with a sponge and then obtained DuraSeal | | dural sealant and used this to augment our DuraGen duraplasty. With dural closure | | complete, we then copiously irrigated in the wound. We cut a piece of titanium mesh | | from the cranial fixation tray to fit the bony defect and it was secured in place with 4 | | mm screws. With the the titanium mesh cranioplasty complete, we irrigated the wound a | | final time and turned our attention to wound closure. At this time. If removed the | | high-powered microscope and performed the remainder of the operation under direct | | vision. The deep muscular layer was reapproximated with interrupted 0 Vicryl sutures, | | and then the fascia was closed with inverted interrupted 0 Vicryl sutures in a | | watertight fashion. The dermis was then closed with inverted interrupted 2-0 Vicryl | | sutures, and the skin was closed with a 4-0 running Rapide stitch. The wound was then | | cleaned and dried. Bacitracin ointment and a Telfa and tape dressing was then applied. | | At this time, the drapes were removed. She was removed from the [place] head machinist | | and flipped into the supine position on a gurney. During the resection of the tumor, we | | did note some transient EMG activity in the hypoglossal nerve and the vagus nerve, and | | these returned to baseline by the end of the case. Other than that EMG activity, there | | was no change to our neuromonitoring waveforms. At the end of the case, due to the long | | duration of the procedure, the decision was made to keep the patient intubated and she | | was transferred directly to the intensive care unit by the Anesthesia team. All sponge, | | needle, and instrument counts were correct in 2 durations at the end of the procedure, | | and Dr. Graham was scrubbed and present for the paul portions of the case.Brady Conroy | | , PhDI was scrubbed and present for all critical portions of the case including: | | approach, resection of tumor and dural closureJustGEREMIAS Farnsworth/FABIENNELDD: 2014 | | 18:04:22DT: 2014 22:30:30Job #: [id number] | + + CAPILLARY BLOOD GLUCOSE (NO CHG), POC (10/26/2014 7:57 AM PDT) + +---------+ + + + | Component | Value | Ref Range | Performed | Pathologist | | | | | At | Signature | + +---------+ + + + | BLOOD | 143 (H) | 60 - 99 mg/dL | [facility] - | | | GLUCOSE, | | | [place] | | | POC | | | [facility] | | | | | | OF CARE | | | | | | TESTS | | + +---------+ + + + + + | Specimen | + + | | + + + + + + + | Performing | Address | City/State/Zipcode | Phone Number | | Organization | | | | + + + + + | [facility] | [address] | [place], [place] | | | [facility] | [address] | [phone] | | | TESTS | | | | + + + + + CAPILLARY BLOOD GLUCOSE (NO CHG), POC (10/26/2014 1:07 AM PDT) + +---------+ + + + | Component | Value | Ref Range | Performed | Pathologist | | | | | At | Signature | + +---------+ + + + | BLOOD | 165 (H) | 60 - 99 mg/dL | [facility] - | | | GLUCOSE, | | | [place] | | | POC | | | [facility] | | | | | | OF CARE | | | | | | TESTS | | + +---------+ + + + + + | Specimen | + + | | + + + + + + + | Performing | Address | City/State/Zipcode | Phone Number | | Organization | | | | + + + + + | [facility] | [address] | [place], [place] | | | [facility] | [address] | [address] | | | TESTS | | | | + + + + + CBC (HEMOGRAM) ONLY (10/26/2014 1:02 AM PDT) + + + + + + | Component | Value | Ref Range | Performed | Pathologist | | | | | At | Signature | + + + + + + | WHITE CELL | 26.34 (H) | 4.40 - 11.00 | [facility] | | | COUNT | | K/cu mm | LABORATORY | | | | | | SERVICES, | | | | | | CORE | | + + + + + + | RED CELL | 3.87 (L) | 4.00 - 5.20 | [facility] | | | COUNT | | M/cu mm | LABORATORY | | | | | | SERVICES, | | | | | | CORE | | + + + + + + | HEMOGLOBIN | 9.0 (L) | 12.0 - 16.0 | [facility] | | | | | g/dL | LABORATORY | | | | | | SERVICES, | | | | | | CORE | | + + + + + + | HEMATOCRIT | 30.4 (L) | 36.0 - 46.0 % | [facility] | | | | | | LABORATORY | | | | | | SERVICES, | | | | | | CORE | | + + + + + + | MCV | 78.6 (L) | 80.0 - 96.0 fL | [facility] | | | | | | LABORATORY | | | | | | SERVICES, | | | | | | CORE | | + + + + + + | MCHC | 29.6 | 33.0 - 35.5 | [facility] | | | | | g/dL | LABORATORY | | | | | | SERVICES, | | | | | | CORE | | + + + + + + | RDW SD | 49.6 (H) | 35.1 - 46.3 fL | [facility] | | | | | | LABORATORY | | | | | | SERVICES, | | | | | | CORE | | + + + + + + | PLATELET | 294 | 150 - 400 K/cu | [facility] | | | COUNT | | mm | LABORATORY | | | | | | SERVICES, | | | | | | CORE | | + + + + + + | MPV | 8.9 (L) | 9.7 - 12.3 fL | [facility] | | | | | | LABORATORY | | | | | | SERVICES, | | | | | | CORE | | + + + + + + | NRBC% | 0.0 | 0.0 - 0.3 % | [facility] | | | | | | LABORATORY | | | | | | SERVICES, | | | | | | CORE | | + + + + + + | NRBC# | 0.00 | 0.00 - 0.02 | [facility] | | | | | K/cu mm | LABORATORY | | | | | | SERVICES, | | | | | | CORE | | + + + + + + + + | Specimen | + + | Blood - Blood | + + + + + + + | Performing | Address | City/State/Zipcode | Phone Number | | Organization | | | | + + + + + | [facility] | [address] | [place] [address] | | | SERVICES, CORE | [address] | | | + + + + + RENAL FUNCTION SET (NA,K,CL,CO2,BUN,CREAT,GLUC,CA,PHOS,ALB ) (10/26/2014 1:02 AM PDT) + +---------+ + + + | Component | Value | Ref Range | Performed | Pathologist | | | | | At | Signature | + +---------+ + + + | GLUCOSE, | 167 (H) | 60 - 99 mg/dL | [facility] | | | PLASMA | | | LABORATORY | | | (LAB) | | | SERVICES, | | | | | | CORE | | + +---------+ + + + | BUN, PLASMA | 15 | 6 - 20 mg/dL | [facility] | | | (LAB) | | | LABORATORY | | | | | | SERVICES, | | | | | | CORE | | + +---------+ + + + | CREATININE | 0.63 | 0.60 - 1.10 | [facility] | | | PLASMA | | mg/dL | LABORATORY | | | (LAB) | | | SERVICES, | | | | | | CORE | | + +---------+ + + + | EGFR | >60 | >60 mL/min | [facility] | | | - | | | LABORATORY | | | KYRGY[facility] | | | SERVICES, | | | | | | CORE | | + +---------+ + + + | EGFR NON | >60 | >60 mL/min | [facility] | | | -TINY | | | LABORATORY | | | RICAN | | | SERVICES, | | | | | | CORE | | + +---------+ + + + | SODIUM, | 140 | 136 - 145 | [facility] | | | PLASMA | | mmol/L | LABORATORY | | | (LAB) | | | SERVICES, | | | | | | CORE | | + +---------+ + + + | POTASSIUM, | 4.2 | 3.4 - 5.0 | [facility] | | | PLASMA | | mmol/L | LABORATORY | | | (LAB) | | | SERVICES, | | | | | | CORE | | + +---------+ + + + | CHLORIDE, | 112 (H) | 97 - 108 mmol/L | [facility] | | | PLASMA | | | LABORATORY | | | (LAB) | | | SERVICES, | | | | | | CORE | | + +---------+ + + + | TOTAL CO2, | 23 | 21 - 32 mmol/L | [facility] | | | PLASMA | | | LABORATORY | | | (LAB) | | | SERVICES, | | | | | | CORE | | + +---------+ + + + | CALCIUM, | 8.9 | 8.6 - 10.2 | [facility] | | | PLASMA | | mg/dL | LABORATORY | | | (LAB) | | | SERVICES, | | | | | | CORE | | + +---------+ + + + | ALBUMIN, | 2.8 (L) | 3.5 - 4.7 g/dL | [facility] | | | PLASMA | | | LABORATORY | | | (LAB) | | | SERVICES, | | | | | | CORE | | + +---------+ + + + | PHOSPHORUS, | 1.4 (L) | 2.4 - 4.7 mg/dL | [facility] | | | PLASMA | | | LABORATORY | | | (LAB) | | | SERVICES, | | | | | | CORE | | + +---------+ + + + | POTASSIUM | No Hemo | | [facility] | | | CMNT | | | LABORATORY | | | | | | SERVICES, | | | | | | CORE | | + +---------+ + + + | ANION GAP | 5 | mmol/L | [facility] | | | | | | LABORATORY | | | | | | SERVICES, | | | | | | CORE | | + +---------+ + + + | ANION | 8 | 4 - 11 mmol/L | [facility] | | | GAP(ALB | | | LABORATORY | | | CORRECTED) | | | SERVICES, | | | | | | CORE | | + +---------+ + + + + + | Specimen | + + | Blood - Blood | + + + + + | Narrative | Performed At | + + + | GFR is estimated using the MDRD equation recommended by the | [facility] | | National Kidney Disease Education Program. Estimated GFR | LABORATORY | | Interpretive Information: <60 mL/min/1.73 sq m | SERVICES, CORE | | Chronic Kidney Disease <15 mL/min/1.73 sq m | | | Kidney Failure Estimated GFR greater that 60 mL/min/1.73 sq m is of | | | limited clinical value. The MDRD equation is not valid in the | | | following situations: - Patients under 18 years of age - Severe | | | malnutrition or obesity - Vegetarian diet - Rapidly changing kidney | | | function | | + + + + + + + + | Performing | Address | City/State/Zipcode | Phone Number | | Organization | | | | + + + + + | [facility] | [address] | [place] [address] | | | SERVICES, [place] | [address] | | | + + + + + CAPILLARY BLOOD GLUCOSE (NO CHG), POC (10/25/2014 5:52 PM PDT) + +---------+ + + + | Component | Value | Ref Range | Performed | Pathologist | | | | | At | Signature | + +---------+ + + + | BLOOD | 154 (H) | 60 - 99 mg/dL | [facility] - | | | GLUCOSE, | | | [place] | | | POC | | | [facility] | | | | | | OF CARE | | | | | | TESTS | | + +---------+ + + + + + | Specimen | + + | | + + + + + + + | Performing | Address | City/State/Zipcode | Phone Number | | Organization | | | | + + + + + | [facility] | [address] | [place], [place] | | | [facility] | [facility] | [address] | | | TESTS | | | | + + + + + CAPILLARY BLOOD GLUCOSE (NO CHG), POC (10/25/2014 1:33 PM PDT) + +---------+ + + + | Component | Value | Ref Range | Performed | Pathologist | | | | | At | Signature | + +---------+ + + + | BLOOD | 167 (H) | 60 - 99 mg/dL | [facility] - | | | GLUCOSE, | | | [facility] | | | POC | | | MALINA NELSON | | | | | | OF CARE | | | | | | TESTS | | + +---------+ + + + + + | Specimen | + + | | + + + + + + + | Performing | Address | City/State/Zipcode | Phone Number | | Organization | | | | + + + + + | [facility] | [address] | [place], [place] | | | [facility] NELSON OF [facility] | [address] | [phone] | | | TESTS | | | | + + + + + CAPILLARY BLOOD GLUCOSE (NO CHG), POC (10/25/2014 12:16 PM PDT) + +---------+ + + + | Component | Value | Ref Range | Performed | Pathologist | | | | | At | Signature | + +---------+ + + + | BLOOD | 183 (H) | 60 - 99 mg/dL | [facility] - | | | GLUCOSE, | | | [facility] | | | POC | | | [facility] | | | | | | OF CARE | | | | | | TESTS | | + +---------+ + + + + + | Specimen | + + | | + + + + + + + | Performing | Address | City/State/Zipcode | Phone Number | | Organization | | | | + + + + + | [facility] | [address] | [place], [place] | | | [facility] | [facility] | [address] | | | TESTS | | | | + + + + + CAPILLARY BLOOD GLUCOSE (NO CHG), POC (10/25/2014 8:03 AM PDT) + +---------+ + + + | Component | Value | Ref Range | Performed | Pathologist | | | | | At | Signature | + +---------+ + + + | BLOOD | 126 (H) | 60 - 99 mg/dL | [facility] - | | | GLUCOSE, | | | [facility] | | | POC | | | [place] | | | | | | OF CARE | | | | | | TESTS | | + +---------+ + + + + + | Specimen | + + | | + + + + + + + | Performing | Address | City/State/Zipcode | Phone Number | | Organization | | | | + + + + + | [facility] | [address] | [place], [place] | | | [facility] | [address] | [address] | | | TESTS | | | | + + + + + MRI BRAIN TUMOR EVALUATION [facility] CONTRAST (10/25/2014 7:45 AM PDT) + + + + + + | Component | Value | Ref Range | Performed | Pathologist | | | | | At | Signature | + + + + + + | MR BRAIN | MRI BRAIN TUMOR FOLLOWUP | | | | | TUMOR | WITH AND WITHOUT | | | | | FOLLOW-UP | CONTRAST, 10/25/14 | | | | | [facility] | 07:45:00. INDICATION: | | | | | CONTRAST | PostopCOMPARISON: September | | | | | | 2014 MRI TECHNIQUE: | | | | | | Multiplanar, | | | | | | multi-sequence MR | | | | | | imaging of the entire | | | | | | brain wasperformed with | | | | | | and without intravenous | | | | | | gadolinium contrast. | | | | | | FINDINGS: | | | | | | Skull/Marrow/Soft | | | | | | tissues: Status post | | | | | | occipital craniectomy | | | | | | and cranioplasty. | | | | | | Orbits/Optic nerves: | | | | | | Normal Sinuses: Clear | | | | | | Brain: There is | | | | | | minimal pneumocephalus. | | | | | | No hemorrhage. No | | | | | | hydrocephalus. Noacute | | | | | | infarct. There is some | | | | | | T2 hyperintensity along | | | | | | the medial aspects of | | | | | | thecerebellum along the | | | | | | resection tract. The | | | | | | previously identified | | | | | | mass is notwell seen. | | | | | | Enhancement: No | | | | | | abnormal enhancement. | | | | | | Additional Comments: | | | | | | None IMPRESSION:Expected | | | | | | postoperative changes. | | | | | | This will serve as a | | | | | | baseline for | | | | | | futureexaminations. The | | | | | | previously identified T2 | | | | | | hyperintense | | | | | | nonenhancing vermismass | | | | | | is not well-seen.. | | | | | | Attending Radiologists: | | | | | | DINORAH DOWD, | | | | | | MDAuthor: DINORAH | | | | | | MD NILE I have | | | | | | personally viewed this | | | | | | procedure/exam, reviewed | | | | | | this report, and | | | | | | madechanges to it where | | | | | | appropriate. | | | | | | Final/Electronically | | | | | | signed / DINORAH | | | | | | NILE 10/25/2014 8:35 | | | | | | AM | | | | + + + + + + + + | Specimen | + + | | + + + +---------+ + + | Performing | Address | City/State/Zipcode | Phone Number | | Organization | | | | + +---------+ + + | [facility] | | | | | [facility]IOLOG[facility] | | | | + +---------+ + + HEMOGLOBIN A1C, BLOOD (10/25/2014 2:07 AM PDT) + + + + + + | Component | Value | Ref Range | Performed | Pathologist | | | | | At | Signature | + + + + + + | HEMOGLOBIN | 5.8 (H)Comment: Hbg A1c | <5.7 % | [facility] | | | A1C | Interpretive | | LABORATORY | | | | Information: | | SERVICES, | | | | <5.7% - Normal | | SPECIAL IMM | | | | 5.7-6.4% - Consistent | | + COAG | | | | with pre-diabetes | | | | | | >6.4% - Consistent with | | | | | | diabetes | | | | + + + + + + + + | Specimen | + + | Blood - Blood | + + + + + + + | Performing | Address | City/State/Zipcode | Phone Number | | Organization | | | | + + + + + | [facility] | [address] | [place] [address] | | | SERVICES, SPECIAL | [address] | | | | IMM + COAG | | | | + + + + + CBC (HEMOGRAM) ONLY (10/25/2014 2:07 AM PDT) + + + + + + | Component | Value | Ref Range | Performed | Pathologist | | | | | At | Signature | + + + + + + | WHITE CELL | 30.79 (HH) | 4.40 - 11.00 | [facility] | | | COUNT | | K/cu mm | LABORATORY | | | | | | SERVICES, | | | | | | CORE | | + + + + + + | RED CELL | 4.53 | 4.00 - 5.20 | [facility] | | | COUNT | | M/cu mm | LABORATORY | | | | | | SERVICES, | | | | | | CORE | | + + + + + + | HEMOGLOBIN | 10.2 (L) | 12.0 - 16.0 | [facility] | | | | | g/dL | LABORATORY | | | | | | SERVICES, | | | | | | CORE | | + + + + + + | HEMATOCRIT | 34.4 (L) | 36.0 - 46.0 % | [facility] | | | | | | LABORATORY | | | | | | SERVICES, | | | | | | CORE | | + + + + + + | MCV | 75.9 (L) | 80.0 - 96.0 fL | [facility] | | | | | | LABORATORY | | | | | | SERVICES, | | | | | | CORE | | + + + + + + | MCHC | 29.7 | 33.0 - 35.5 | [facility] | | | | | g/dL | LABORATORY | | | | | | SERVICES, | | | | | | CORE | | + + + + + + | RDW SD | 47.3 (H) | 35.1 - 46.3 fL | [facility] | | | | | | LABORATORY | | | | | | SERVICES, | | | | | | CORE | | + + + + + + | PLATELET | 393 | 150 - 400 K/cu | [facility] | | | COUNT | | mm | LABORATORY | | | | | | SERVICES, | | | | | | CORE | | + + + + + + | MPV | 8.9 (L) | 9.7 - 12.3 fL | [facility] | | | | | | LABORATORY | | | | | | SERVICES, | | | | | | CORE | | + + + + + + | NRBC% | 0.0 | 0.0 - 0.3 % | [facility] | | | | | | LABORATORY | | | | | | SERVICES, | | | | | | CORE | | + + + + + + | NRBC# | 0.00 | 0.00 - 0.02 | [facility] | | | | | K/cu mm | LABORATORY | | | | | | SERVICES, | | | | | | CORE | | + + + + + + + + | Specimen | + + | Blood - Blood | + + + + + + + | Performing | Address | City/State/Zipcode | Phone Number | | Organization | | | | + + + + + | [facility] | [address] | [place] [address] | | | SERVICES, CORE | [address] | | | + + + + + RENAL FUNCTION SET (NA,K,CL,CO2,BUN,CREAT,GLUC,CA,PHOS,ALB ) (10/25/2014 2:07 AM PDT) + +---------+ + + + | Component | Value | Ref Range | Performed | Pathologist | | | | | At | Signature | + +---------+ + + + | GLUCOSE, | 194 (H) | 60 - 99 mg/dL | [facility] | | | PLASMA | | | LABORATORY | | | (LAB) | | | SERVICES, | | | | | | CORE | | + +---------+ + + + | BUN, PLASMA | 13 | 6 - 20 mg/dL | [facility] | | | (LAB) | | | LABORATORY | | | | | | SERVICES, | | | | | | CORE | | + +---------+ + + + | CREATININE | 0.63 | 0.60 - 1.10 | [facility] | | | PLASMA | | mg/dL | LABORATORY | | | (LAB) | | | SERVICES, | | | | | | CORE | | + +---------+ + + + | EGFR | >60 | >60 mL/min | [facility] | | | - | | | LABORATORY | | | KYRGYZ | | | SERVICES, | | | | | | CORE | | + +---------+ + + + | EGFR NON | >60 | >60 mL/min | [facility] | | | -TINY | | | LABORATORY | | | RICAN | | | SERVICES, | | | | | | CORE | | + +---------+ + + + | SODIUM, | 141 | 136 - 145 | [facility] | | | PLASMA | | mmol/L | LABORATORY | | | (LAB) | | | SERVICES, | | | | | | CORE | | + +---------+ + + + | POTASSIUM, | 4.1 | 3.4 - 5.0 | [facility] | | | PLASMA | | mmol/L | LABORATORY | | | (LAB) | | | SERVICES, | | | | | | CORE | | + +---------+ + + + | CHLORIDE, | 112 (H) | 97 - 108 mmol/L | [facility] | | | PLASMA | | | LABORATORY | | | (LAB) | | | SERVICES, | | | | | | CORE | | + +---------+ + + + | TOTAL CO2, | 22 | 21 - 32 mmol/L | [facility] | | | PLASMA | | | LABORATORY | | | (LAB) | | | SERVICES, | | | | | | CORE | | + +---------+ + + + | CALCIUM, | 8.7 | 8.6 - 10.2 | [facility] | | | PLASMA | | mg/dL | LABORATORY | | | (LAB) | | | SERVICES, | | | | | | CORE | | + +---------+ + + + | ALBUMIN, | 3.2 (L) | 3.5 - 4.7 g/dL | [facility] | | | PLASMA | | | LABORATORY | | | (LAB) | | | SERVICES, | | | | | | CORE | | + +---------+ + + + | PHOSPHORUS, | 3.0 | 2.4 - 4.7 mg/dL | [facility] | | | PLASMA | | | LABORATORY | | | (LAB) | | | SERVICES, | | | | | | CORE | | + +---------+ + + + | POTASSIUM | No Hemo | | [facility] | | | CMNT | | | LABORATORY | | | | | | SERVICES, | | | | | | CORE | | + +---------+ + + + | ANION GAP | 7 | mmol/L | [facility] | | | | | | LABORATORY | | | | | | SERVICES, | | | | | | CORE | | + +---------+ + + + | ANION | 9 | 4 - 11 mmol/L | [facility] | | | GAP(ALB | | | LABORATORY | | | CORRECTED) | | | SERVICES, | | | | | | CORE | | + +---------+ + + + + + | Specimen | + + | Blood - Blood | + + + + + | Narrative | Performed At | + + + | GFR is estimated using the MDRD equation recommended by the | [facility] | | National Kidney Disease Education Program. Estimated GFR | LABORATORY | | Interpretive Information: <60 mL/min/1.73 sq m | SERVICES, CORE | | Chronic Kidney Disease <15 mL/min/1.73 sq m | | | Kidney Failure Estimated GFR greater that 60 mL/min/1.73 sq m is of | | | limited clinical value. The MDRD equation is not valid in the | | | following situations: - Patients under 18 years of age - Severe | | | malnutrition or obesity - Vegetarian diet - Rapidly changing kidney | | | function | | + + + + + + + + | Performing | Address | City/State/Zipcode | Phone Number | | Organization | | | | + + + + + | [facility] | [address] | [place] [address] | | | [facility], [facility] | [address] | | | + + + + + CT HEAD WO CONTRAST (2014 7:38 PM PDT) + + + + + + | Component | Value | Ref Range | Performed | Pathologist | | | | | At | Signature | + + + + + + | CT HEAD WO | CT Head WITHOUT: | | | | | CONTRAST | 10/24/14 19:38:00 | | | | | | Comparison studies: | | | | | | 2014 MRI. | | | | | | Clinical history: Postop | | | | | | TECHNIQUE: Axial CT | | | | | | images of the brain from | | | | | | skull base to vertex, | | | | | | includingportions of the | | | | | | face and sinuses, were | | | | | | obtained without | | | | | | contrast. [id number] | | | | | | reformatted images were | | | | | | generated and reviewed | | | | | | as needed.ADDITIONAL | | | | | | TECHNIQUE: NoneFINDINGS: | | | | | | Soft tissues: | | | | | | Unremarkable Skull/Skull | | | | | | base: Status post | | | | | | occipital craniectomy | | | | | | and cranioplasty with | | | | | | mesh. Face/Orbits: No | | | | | | fractures, deformities, | | | | | | or masses in the | | | | | | visualized portions. | | | | | | Sinuses: Visualized | | | | | | portions are clear. | | | | | | Brain: Expected | | | | | | postoperative changes in | | | | | | the cerebellum. | | | | | | Minimalpneumocephalus. | | | | | | No hematoma. No | | | | | | hydrocephalus. No acute | | | | | | infarct. No midlineshift | | | | | | or mass effect. | | | | | | Additional Comments: | | | | | | None IMPRESSION:Expected | | | | | | postoperative changes. | | | | | | No hemorrhage. No acute | | | | | | process Attending | | | | | | Radiologists: DINORAH | | | | | | SANDRA DOWDuthor: | | | | | | DINORAH DOWD MD I | | | | | | have personally viewed | | | | | | this procedure/exam, | | | | | | reviewed this report, | | | | | | and madechanges to it | | | | | | where appropriate. | | | | | | Final/Electronically | | | | | | signed / DINORAH | | | | | | NILE 2014 19:48 | | | | | | PM | | | | + + + + + + + + | Specimen | + + | | + + + +---------+ + + | Performing | Address | City/State/Zipcode | Phone Number | | Organization | | | | + +---------+ + + | [facility] | | | | | RADIOLOGY | | | | + +---------+ + + X-RAY PORTABLE CHEST 1 VIEW (2014 6:53 PM PDT) + + + + + + | Component | Value | Ref Range | Performed | Pathologist | | | | | At | Signature | + + + + + + | X-RAY | EXAM: [place] CHEST 1 VIEW | | | | | PORTABLE | 10/24/14 18:53:00 | | | | | CHEST 1 | HISTORY: Central line | | | | | VIEW | placement COMPARISON: | | | | | | None. FINDINGS:There is | | | | | | a left subclavian | | | | | | central venous catheter | | | | | | which terminates in the | | | | | | leftbrachiocephalic vein | | | | | | approximately 2 cm from | | | | | | the SVC confluence. | | | | | | There is trace bibasilar | | | | | | atelectasis. There is | | | | | | no pleural effusion, | | | | | | minimalthorax or | | | | | | pulmonary edema. The | | | | | | cardiomediastinal | | | | | | contour is unremarkable. | | | | | | Noacute osseous | | | | | | abnormality is present. | | | | | | IMPRESSION: Trace | | | | | | bibasilar atelectasis. | | | | | | Left subclavian central | | | | | | venous catheter | | | | | | terminating in the | | | | | | central | | | | | | leftbrachiocephalic | | | | | | vein. No pneumothorax. | | | | | | Attending Radiologists: | | | | | | BRANDY RAY, MDAuthor: | | | | | | JULIANA DUDLEY MD I have | | | | | | personally viewed this | | | | | | procedure/exam, reviewed | | | | | | this report, and | | | | | | madechanges to it where | | | | | | appropriate. | | | | | | Final/Electronically | | | | | | signed / BRANDY | | | | | | FLOR 10/25/2014 8:39 AM | | | | + + + + + + + + | Specimen | + + | | + + + +---------+ + + | Performing | Address | City/State/Zipcode | Phone Number | | Organization | | | | + +---------+ + + | [facility] | | | | | [facility]IOLOG[facility] | | | | + +---------+ + + CBC (HEMOGRAM) ONLY (2014 6:22 PM PDT) + + + + + + | Component | Value | Ref Range | Performed | Pathologist | | | | | At | Signature | + + + + + + | WHITE CELL | 21.97 (H) | 4.40 - 11.00 | [facility] | | | COUNT | | K/cu mm | LABORATORY | | | | | | SERVICES, | | | | | | CORE | | + + + + + + | RED CELL | 4.67 | 4.00 - 5.20 | [facility] | | | COUNT | | M/cu mm | LABORATORY | | | | | | SERVICES, | | | | | | CORE | | + + + + + + | HEMOGLOBIN | 10.7 (L) | 12.0 - 16.0 | [facility] | | | | | g/dL | LABORATORY | | | | | | SERVICES, | | | | | | CORE | | + + + + + + | HEMATOCRIT | 35.2 (L) | 36.0 - 46.0 % | [facility] | | | | | | LABORATORY | | | | | | SERVICES, | | | | | | CORE | | + + + + + + | MCV | 75.4 (L) | 80.0 - 96.0 fL | [facility] | | | | | | LABORATORY | | | | | | SERVICES, | | | | | | CORE | | + + + + + + | MCHC | 30.4 | 33.0 - 35.5 | [facility] | | | | | g/dL | LABORATORY | | | | | | SERVICES, | | | | | | CORE | | + + + + + + | RDW SD | 47.7 (H) | 35.1 - 46.3 fL | [facility] | | | | | | LABORATORY | | | | | | SERVICES, | | | | | | CORE | | + + + + + + | PLATELET | 403 (H) | 150 - 400 K/cu | [facility] | | | COUNT | | mm | LABORATORY | | | | | | SERVICES, | | | | | | CORE | | + + + + + + | MPV | 8.5 (L) | 9.7 - 12.3 fL | [facility] | | | | | | LABORATORY | | | | | | SERVICES, | | | | | | CORE | | + + + + + + | NRBC% | 0.0 | 0.0 - 0.3 % | [facility] | | | | | | LABORATORY | | | | | | SERVICES, | | | | | | CORE | | + + + + + + | NRBC# | 0.00 | 0.00 - 0.02 | [facility] | | | | | K/cu mm | LABORATORY | | | | | | SERVICES, | | | | | | CORE | | + + + + + + + + | Specimen | + + | Blood - Blood | + + + + + + + | Performing | Address | City/State/Zipcode | Phone Number | | Organization | | | | + + + + + | [facility] | [address] | [place] [address] | | | SERVICES, CORE | [address] | | | + + + + + BASIC METABOLIC SET (NA, K, CL, TCO2, BUN, CR, GLU, CA) (2014 6:22 PM PDT) + +---------+ + + + | Component | Value | Ref Range | Performed | Pathologist | | | | | At | Signature | + +---------+ + + + | GLUCOSE, | 189 (H) | 60 - 99 mg/dL | [facility] | | | PLASMA | | | LABORATORY | | | (LAB) | | | SERVICES, | | | | | | CORE | | + +---------+ + + + | BUN, PLASMA | 16 | 6 - 20 mg/dL | [facility] | | | (LAB) | | | LABORATORY | | | | | | SERVICES, | | | | | | CORE | | + +---------+ + + + | CREATININE | 0.70 | 0.60 - 1.10 | [facility] | | | PLASMA | | mg/dL | LABORATORY | | | (LAB) | | | SERVICES, | | | | | | CORE | | + +---------+ + + + | EGFR | >60 | >60 mL/min | [facility] | | | - | | | LABORATORY | | | KYRGYZ | | | SERVICES, | | | | | | CORE | | + +---------+ + + + | EGFR NON | >60 | >60 mL/min | [facility] | | | -TINY | | | LABORATORY | | | RICAN | | | SERVICES, | | | | | | CORE | | + +---------+ + + + | SODIUM, | 140 | 136 - 145 | [facility] | | | PLASMA | | mmol/L | LABORATORY | | | (LAB) | | | SERVICES, | | | | | | CORE | | + +---------+ + + + | POTASSIUM, | 4.4 | 3.4 - 5.0 | [facility] | | | PLASMA | | mmol/L | LABORATORY | | | (LAB) | | | SERVICES, | | | | | | CORE | | + +---------+ + + + | CHLORIDE, | 112 (H) | 97 - 108 mmol/L | [facility] | | | PLASMA | | | LABORATORY | | | (LAB) | | | SERVICES, | | | | | | CORE | | + +---------+ + + + | TOTAL CO2, | 20 (L) | 21 - 32 mmol/L | [facility] | | | PLASMA | | | LABORATORY | | | (LAB) | | | SERVICES, | | | | | | CORE | | + +---------+ + + + | CALCIUM, | 8.7 | 8.6 - 10.2 | [facility] | | | PLASMA | | mg/dL | LABORATORY | | | (LAB) | | | SERVICES, | | | | | | CORE | | + +---------+ + + + | ANION GAP | 8 | mmol/L | [facility] | | | | | | LABORATORY | | | | | | SERVICES, | | | | | | CORE | | + +---------+ + + + | POTASSIUM | No Hemo | | [facility] | | | CMNT | | | LABORATORY | | | | | | SERVICES, | | | | | | CORE | | + +---------+ + + + + + | Specimen | + + | Blood - Blood | + + + + + | Narrative | Performed At | + + + | GFR is estimated using the MDRD equation recommended by the | [facility] | | National Kidney Disease Education Program. Estimated GFR | LABORATORY | | Interpretive Information: <60 mL/min/1.73 sq m | [facility], CORE | | Chronic Kidney Disease <15 mL/min/1.73 sq m | | | Kidney Failure Estimated GFR greater that 60 mL/min/1.73 sq m is of | | | limited clinical value. The MDRD equation is not valid in the | | | following situations: - Patients under 18 years of age - Severe | | | malnutrition or obesity - Vegetarian diet - Rapidly changing kidney | | | function | | + + + + + + + + | Performing | Address | City/State/Zipcode | Phone Number | | Organization | | | | + + + + + | [facility] | [address] | [place] [address] | | | GABRIELLE MIRELES | [address] | | | + + + + + UA, DIPSTICK ONLY (2014 6:22 PM PDT) + + + + + + | Component | Value | Ref Range | Performed | Pathologist | | | | | At | Signature | + + + + + + | COLOR(UR) | Yellow | | [facility] | | | | | | LABORATORY | | | | | | SERVICES, | | | | | | CORE | | + + + + + + | APPEARANCE | Sl.Cloudy | | [facility] | | | | | | LABORATORY | | | | | | SERVICES, | | | | | | CORE | | + + + + + + | GLUCOSE(UR) | Negative | Negative, 50.0 | [facility] | | | | | mg/dL | LABORATORY | | | | | | SERVICES, | | | | | | CORE | | + + + + + + | PROTEIN(LAB | 100.0 (A) | Negative, 30.0 | [facility] | | | ) | | mg/dL | LABORATORY | | | | | | SERVICES, | | | | | | CORE | | + + + + + + | BILIRUBIN | Negative | Negative | [facility] | | | | | | LABORATORY | | | | | | SERVICES, | | | | | | CORE | | + + + + + + | UROBILINOGE | <2.0 | <2.0 mg/dL | [facility] | | | N | | | LABORATORY | | | | | | SERVICES, | | | | | | CORE | | + + + + + + | PH(UR) | 5.0 | 5.0 - 8.0 | [facility] | | | | | | LABORATORY | | | | | | SERVICES, | | | | | | CORE | | + + + + + + | BLOOD | Small (A) | Negative | [facility] | | | | | | LABORATORY | | | | | | SERVICES, | | | | | | CORE | | + + + + + + | KETONES | Negative | Negative mg/dL | [facility] | | | | | | LABORATORY | | | | | | SERVICES, | | | | | | CORE | | + + + + + + | NITRITES | Negative | Negative | [facility] | | | | | | LABORATORY | | | | | | SERVICES, | | | | | | CORE | | + + + + + + | LEUKOCYTE | Negative | Negative | [facility] | | | ESTERASE | | | LABORATORY | | | | | | SERVICES, | | | | | | CORE | | + + + + + + | SPECIFIC | 1.025 | 1.005 - 1.030 | [facility] | | | GRAVITY | | | LABORATORY | | | | | | SERVICES, | | | | | | CORE | | + + + + + + + + | Specimen | + + | Urine - Urine | + + + + + + + | Performing | Address | City/State/Zipcode | Phone Number | | Organization | | | | + + + + + | [facility] | [address] | [place] [address] | | | SERVICES, CORE | [address] | | | + + + + + URINE, MICROSCOPIC EXAM (2014 6:22 PM PDT) + +---------+ + + + | Component | Value | Ref Range | Performed | Pathologist | | | | | At | Signature | + +---------+ + + + | RED CELLS | 164 (H) | 0 - 3 /hpf | [facility] | | | | | | LABORATORY | | | | | | SERVICES, | | | | | | CORE | | + +---------+ + + + | WHITE CELLS | 2 | 0 - 5 /hpf | [facility] | | | | | | LABORATORY | | | | | | SERVICES, | | | | | | CORE | | + +---------+ + + + | BACTERIA | None | None /hpf | [facility] | | | | | | LABORATORY | | | | | | SERVICES, | | | | | | CORE | | + +---------+ + + + | YEAST (LAB) | None | None /hpf | [facility] | | | | | | LABORATORY | | | | | | SERVICES, | | | | | | CORE | | + +---------+ + + + | SQUAMOUS | Few (A) | None /hpf | [facility] | | | EPITHELIAL | | | LABORATORY | | | | | | SERVICES, | | | | | | CORE | | + +---------+ + + + | MUCOUS | Few (A) | None /hpf | [facility] | | | | | | LABORATORY | | | | | | SERVICES, | | | | | | CORE | | + +---------+ + + + | TRICHOMONAS | None | None /hpf | [facility] | | | | | | LABORATORY | | | | | | SERVICES, | | | | | | CORE | | + +---------+ + + + | NON-SQUAMOU | None | None /hpf | [facility] | | | S EPITH | | | LABORATORY | | | | | | SERVICES, | | | | | | CORE | | + +---------+ + + + | HYALINE | 0 | 0 - 2 /lpf | [facility] | | | CASTS | | | LABORATORY | | | | | | SERVICES, | | | | | | CORE | | + +---------+ + + + | GRANULAR | 0 | 0 - 2 /lpf | [facility] | | | CASTS | | | LABORATORY | | | | | | SERVICES, | | | | | | CORE | | + +---------+ + + + | CELLULAR | 0 | <=0 /lpf | [facility] | | | CASTS | | | LABORATORY | | | | | | SERVICES, | | | | | | CORE | | + +---------+ + + + | TRIPLE P04 | None | None /hpf | [facility] | | | [facility] | | | LABORATORY | | | | | | SERVICES, | | | | | | CORE | | + +---------+ + + + | CALCIUM | None | None /hpf | [facility] | | | [facility] | | | LABORATORY | | | VENUS | | | SERVICES, | | | | | | CORE | | + +---------+ + + + | URIC ACID | None | None /hpf | [facility] | | | [facility] | | | LABORATORY | | | | | | SERVICES, | | | | | | CORE | | + +---------+ + + + | AMORPHOUS | None | None /hpf | [facility] | | | [facility] | | | LABORATORY | | | | | | SERVICES, | | | | | | CORE | | + +---------+ + + + + + | Specimen | + + | Urine - Urine | + + + + + + + | Performing | Address | City/State/Zipcode | Phone Number | | Organization | | | | + + + + + | [facility] | [address] | [place] [address] | | | SERVICES, [place] | [address] | | | + + + + + URINE SCREEN FOR CULTURE (2014 6:22 PM PDT) + + + + + + | Component | Value | Ref Range | Performed | Pathologist | | | | | At | Signature | + + + + + + | URINE | Negative | Negative | [facility] | | | SCREEN FOR | | | LABORATORY | | | CULTURE | | | SERVICES, | | | | | | CORE | | + + + + + + + + | Specimen | + + | Urine - Urine | + + + + + | Narrative | Performed At | + + + | Culture Screen Negative. Culture not indicated. | [facility] | | | LABORATORY | | | SERVICES, CORE | + + + + + + + + | Performing | Address | City/State/Zipcode | Phone Number | | Organization | | | | + + + + + | [facility] | [address] | [place] [address] | | | SERVICES, CORE | [address] | | | + + + + + LACTATE (ART), POC (2014 1:21 PM PDT) + +---------+ + + + | Component | Value | Ref Range | Performed | Pathologist | | | | | At | Signature | + +---------+ + + + | LACTATE | 0.4 (L) | 0.5 - 1.6 | [facility] | | | ART[facility], | | mmol/L | [facility] | | | POC | | | [facility] | | | | | | OF CARE | | | | | | TESTS | | + +---------+ + + + + + | Specimen | + + | | + + + + + + + | Performing | Address | City/State/Zipcode | Phone Number | | Organization | | | | + + + + + | [facility] | [address] | [place], [place] | | | [facility] | [address] | [address] | | | TESTS | | | | + + + + + SODIUM, POC (2014 1:21 PM PDT) + +-------+ + + + | Component | Value | Ref Range | Performed | Pathologist | | | | | At | Signature | + +-------+ + + + | SODIUM, POC | 140 | 134 - 143 | [facility] - | | | | | mmol/L | [facility] | | | | | | [facility] | | | | | | OF CARE | | | | | | TESTS | | + +-------+ + + + + + | Specimen | + + | | + + + + + + + | Performing | Address | City/State/Zipcode | Phone Number | | Organization | | | | + + + + + | [facility] | [address] | [place], [place] | | | [facility] | [facility] | [address] | | | TESTS | | | | + + + + + POTASSIUM, POC (2014 1:21 PM PDT) + +-------+ + + + | Component | Value | Ref Range | Performed | Pathologist | | | | | At | Signature | + +-------+ + + + | POTASSIUM, | 3.6 | 3.4 - 5.0 | [facility] | | | POC | | mmol/L | [facility] | | | | | | [facility] | | | | | | OF CARE | | | | | | TESTS | | + +-------+ + + + + + | Specimen | + + | | + + + + + + + | Performing | Address | City/State/Zipcode | Phone Number | | Organization | | | | + + + + + | [facility] | [address] | [place], [place] | | | [facility] OF [facility] | [address] | [address] | | | TESTS | | | | + + + + + GLUCOSE, POC (2014 1:21 PM PDT) + +---------+ + + + | Component | Value | Ref Range | Performed | Pathologist | | | | | At | Signature | + +---------+ + + + | GLUCOSE, | 110 (H) | 60 - 99 mg/dL | [facility] | | | POC | | | [facility] | | | | | | [facility] | | | | | | OF CARE | | | | | | TESTS | | + +---------+ + + + + + | Specimen | + + | | + + + + + + + | Performing | Address | City/State/Zipcode | Phone Number | | Organization | | | | + + + + + | [facility] | [address] | [place], [place] | | | [facility] | [address] | [address] | | | TESTS | | | | + + + + + CHLORIDE, POC (2014 1:21 PM PDT) + +---------+ + + + | Component | Value | Ref Range | Performed | Pathologist | | | | | At | Signature | + +---------+ + + + | CHLORIDE, | 113 (H) | 97 - 108 mmol/L | [facility] | | | POC | | | [place] | | | | | | [facility] | | | | | | OF CARE | | | | | | TESTS | | + +---------+ + + + + + | Specimen | + + | | + + + + + + + | Performing | Address | City/State/Zipcode | Phone Number | | Organization | | | | + + + + + | [facility] | [address] | [place], [place] | | | [facility] | [facility] | [address] | | | TESTS | | | | + + + + + LUCHO IONIZED CA, POC (2014 1:21 PM PDT) + +-------+ + + + | Component | Value | Ref Range | Performed | Pathologist | | | | | At | Signature | + +-------+ + + + | LUCHO | 1.22 | 1.14 - 1.32 | [facility] | | | IONIZED CA, | | mmol/L | [place] | | | POC | | | [facility] | | | | | | OF CARE | | | | | | TESTS | | + +-------+ + + + + + | Specimen | + + | | + + + + + + + | Performing | Address | City/State/Zipcode | Phone Number | | Organization | | | | + + + + + | [facility] | [address] | [place], [place] | | | [facility] | [address] | [address] | | | TESTS | | | | + + + + + HEMOGLOBIN-LAURYN PINEDA (2014 1:21 PM PDT) + + + + + + | Component | Value | Ref Range | Performed | Pathologist | | | | | At | Signature | + + + + + + | TOTAL | 9.4 (L) | 12.0 - 16.0 | [facility] | | | HEMOGLOBIN, | | g/dL | [facility] | | | POC | | | [place] | | | | | | OF CARE | | | | | | TESTS | | + + + + + + | OXYHEMOGLOB | 96.4 | 94.0 - 100 % | [facility] | | | IN, POC | | | [place] | | | | | | [place] | | | | | | OF CARE | | | | | | TESTS | | + + + + + + | CARBOXYHEMO | 3.7 (H) | 0.0 - 1.5 % | [facility] | | | GLOBIN, POC | | | [place] | | | | | | [place] | | | | | | OF CARE | | | | | | TESTS | | + + + + + + | METHEMOGLOB | 0.5 | 0.0 - 1.9 % | [facility] - | | | IN, POC | | | [place] | | | | | | [place] | | | | | | OF CARE | | | | | | TESTS | | + + + + + + | HEMATOCRIT, | 28.9 (L) | 36.0 - 46.0 % | [facility] | | | POC | | | [place] | | | | | | [facility] | | | | | | OF CARE | | | | | | TESTS | | + + + + + + + + | Specimen | + + | | + + + + + + + | Performing | Address | City/State/Zipcode | Phone Number | | Organization | | | | + + + + + | [facility] | [address] | [place], [place] | | | [facility] | [address] | [address] | | | TESTS | | | | + + + + + ARTERIAL BLOOD GAS, POC (2014 1:21 PM PDT) + + + + + + | Component | Value | Ref Range | Performed | Pathologist | | | | | At | Signature | + + + + + + | PH | 7.32 (L) | 7.37 - 7.44 | [facility] | | | ARTERIAL, | | | [place] | | | POC | | | [facility] | | | | | | OF CARE | | | | | | TESTS | | + + + + + + | PO2 | 240 (H) | 72 - 104 mmHg | [facility] | | | ARTERIAL, | | | [place] | | | POC | | | [facility] | | | | | | OF CARE | | | | | | TESTS | | + + + + + + | PCO2 | 41 | 32 - 43 mmHg | [facility] | | | ARTERIAL, | | | [place] | | | POC | | | [place] | | | | | | OF CARE | | | | | | TESTS | | + + + + + + | O2 SAT | 100.6 (H) | 92.0 - 98.0 % | [facility] | | | ARTERIAL, | | | [place] | | | POC | | | [place] | | | | | | OF CARE | | | | | | TESTS | | + + + + + + | HCO3 | 21.3 | 21 - 28 mmol/L | [facility] - | | | ARTERIAL, | | | [place] | | | POC | | | [place] | | | | | | OF CARE | | | | | | TESTS | | + + + + + + | BASE EXCESS | -4.7 | | [facility] | | | ARTERIAL, | | | [place] | | | POC | | | [place] | | | | | | OF CARE | | | | | | TESTS | | + + + + + + + + | Specimen | + + | | + + + + + + + | Performing | Address | City/State/Zipcode | Phone Number | | Organization | | | | + + + + + | [facility] | [address] | [place], [place] | | | [facility] OF [facility] | [address] | [address] | | | TESTS | | | | + + + + + MRI BRAIN W CONTRAST - FRAMELESS STEREOTATIC ONLY (2014 7:48 AM PDT) + + + + + + | Component | Value | Ref Range | Performed | Pathologist | | | | | At | Signature | + + + + + + | MR BRAIN | EXAM: MRI brain with | | | | | FRAMELESS | contrast HISTORY: | | | | | STEREOTACTI | Resection of fourth | | | | | C ONLY W | ventricular mass. | | | | | | COMPARISON: 06/07/14 P. | | | | | | TECHNIQUE: Multiplanar | | | | | | multi-sequence MRI of | | | | | | the brain with 18 mL | | | | | | intravenouscontrast. | | | | | | FINDINGS: Brain: | | | | | | Redemonstration of | | | | | | hyperintense T2, | | | | | | minimally enhancing mass | | | | | | [id number] x 12 mm in | | | | | | the floor of fourth | | | | | | ventricle near foramina | | | | | | of [place]. | | | | | | Nohydrocephalus. No | | | | | | evidence of hemorrhage, | | | | | | or shift of midline | | | | | | structures. Soft tissues | | | | | | and marrow: | | | | | | UnremarkableFace and | | | | | | orbits: Visualized | | | | | | portions are | | | | | | unremarkable IMPRESSION: | | | | | | Redemonstration of | | | | | | fourth ventricular mass | | | | | | near foramen of | | | | | | [place].Differential | | | | | | considerations include | | | | | | ependymoma/subependymoma | | | | | | . No hydrocephalus. | | | | | | Attending Radiologists: | | | | | | BERTA FELIPE, | | | | | | MDAuthor: BERTA Toth | | | | | | MD MATTEO I have | | | | | | personally viewed this | | | | | | procedure/exam, reviewed | | | | | | this report, and | | | | | | madechanges to it where | | | | | | appropriate. | | | | | | Final/Electronically | | | | | | rupinder / BERTA Toth | | | | | | MATTEO 2014 8:42 | | | | | | AM | | | | + + + + + + + + | Specimen | + + | | + + + +---------+ + + | Performing | Address | City/State/Zipcode | Phone Number | | Organization | | | | + +---------+ + + | [facility] DEPARTMENT OF | | | | | RADIOLOGY | | | | + +---------+ + + ANTIBODY SCREEN (2014 7:00 AM PDT) + + + + + + | Component | Value | Ref Range | Performed | Pathologist | | | | | At | Signature | + + + + + + | Antibody | Negative | | [facility] | | | Screen | | | LABORATORY | | | | | | SERVICES, | | | | | | TRANSFUSION | | | | | | MEDICINE | | + + + + + + + + | Specimen | + + | Blood - Blood | + + + + + + + | Performing | Address | City/State/Zipcode | Phone Number | | Organization | | | | + + + + + | [facility] | [address] | [place] [address] | | | SERVICES, | [address] | | | | TRANSFUSION MEDICINE | | | | + + + + + ABO & RH TYPE (2014 7:00 AM PDT) + + + + + + | Component | Value | Ref Range | Performed | Pathologist | | | | | At | Signature | + + + + + + | ABO Group | O | | [facility] | | | | | | LABORATORY | | | | | | SERVICES, | | | | | | TRANSFUSION | | | | | | MEDICINE | | + + + + + + | Rh Type | Positive | | [facility] | | | | | | LABORATORY | | | | | | SERVICES, | | | | | | TRANSFUSION | | | | | | MEDICINE | | + + + + + + + + | Specimen | + + | Blood - Blood | + + + + + + + | Performing | Address | City/State/Zipcode | Phone Number | | Organization | | | | + + + + + | [facility] | [address] | [place] [address] | | | SERVICES, | [address] | | | | TRANSFUSION MEDICINE | | | | + + + + + INTRAOPERATIVE NEURO MONITORING (2014) + + + | Narrative | Performed At | + + + | Patient Name: Mendoza Villegas Date of : 1970 Medical | | | Record Number: [id number] Date of Test: 2014 Place of | | | Service: IP Intra Op [phone] [id number] - [id number] INTRAOPERATIVE NEURO | | | MONITORING History: This is a 44 y.o. year-old female patient | | | with a history of brain tumor. 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 | | | Conditions of Recording: Repetitive electrical stimulation of the | | | posterior tibial nerve was performed at the ankle bilaterally, with | | | recordings over the popliteal fossa, cervical spine and scalp. | | | Repetitive electrical stimulation of the ulnar nerve was performed | | | at the wrist bilaterally, with recordings over the brachial plexus, | | | the cervical spine and the scalp. Train of four response was done | | | to compare the ratio of the fourth to the first twitch when | | | stimulated at a rate of 2 Hz to assess the degree of neuromuscular | | | blockade. To obtain transcranial electrical motor evoked | | | potentials, trains of 6 pulses with an individual pulse duration of | | | 0.5 ms and an interstimulus interval of 4 ms were delivered over the | | | bilateral central regions of the scalp. Free-running EMG was | | | recorded from bilateral vocal cords, trapezius muscles and tongue. | | | Description of recording: Preoperative waveforms were obtained | | | after general anesthesia for baseline. During surgery, SSEPs were | | | repetitively performed. Following posterior tibial nerve | | | stimulation, there was a reproducible subcortical potential, N29, at | | | latencies of approximately 35.9 msec. A reproducible cortical | | | waveform, N37, was present at latencies of about 47 msec. There | | | were no significant changes in the latencies or amplitudes of the | | | posterior tibial nerve responses as compared to baseline values. | | | Following ulnar nerve stimulation, there was a cervical potential, | | | N13, at latencies of approximately 16 msec. The cortical waveform, | | | N20, was present at latencies of about 21.7 msec. There were no | | | significant changes in the latencies or amplitudes of the ulnar nerve | | | responses as compared to baseline values. Following transcranial | | | stimulation, there were reproducible EMG responses from the upper | | | and lower extremity muscles bilaterally. There were no significant | | | changes in the latencies or amplitudes during the surgical procedure. | | | The surgeon was notified if there was any firing of selected | | | muscles observed due to mechanical root irritation in the surgical | | | field. Intraoperative interpretation was performed using real-time | | | display of intraoperative neurophysiologic recordings for 2 hours | | | 31 minutes (14:27-16:58). Dr. Díaz was continuously available for | | | communication with the recording technologist and the operative team | | | during this time. Impression: No significant change in baseline | | | waveforms during surgery. Jaime Díaz M.D. 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 / | | | | | | Neuropathology | | | | | | Nolberto Resendiz, | | | | | | MAna, Ph.D. / | | | | | | NeuropathologistT: | | | | | | 10/26/2014 OE | | | | | | Synoptic Report: | | | | | | Specimens | | | | | | InvolvedSpecimens: | | | | | | A: 4th ventricular | | | | | | tumor FSB: 4th | | | | | | ventricular tumor | | | | | | Tumor Site(s): | | | | | | BrainFourth | | | | | | ventricleLaterality: | | | | | | Not | | | | | | specifiedProcedure: | | | | | | ResectionHistologic | | | | | | Type: WHO | | | | | | Classification: | | | | | | SubependymomaHistologic | | | | | | Grade: WHO Histologic | | | | | | Grade: IMargins: | | | | | | Not | | | | | | applicableEpendymal | | | | | | Tumors: Subependymoma | | | | | | (WHO grade I)Histologic | | | | | | Grade: WHO Grade | | | | | | IAncillary Studies: No | | | | | | special stains | | | | | | performedNo | | | | | | Immunohistochemistry | | | | | | performedNo Electron | | | | | | microscopy performedNo | | | | | | Molecular Genetic | | | | | | Studies performed | | | | | | | | | | | | Intraoperative Consult | | | | | | (Frozen Section, Squish | | | | | | Prep, and Touch | | | | | | Prep)Diagnosis:Fourth | | | | | | ventricular tumor | | | | | | (specimen A): - | | | | | | Subependymoma | | | | | | Intraoperative Consult | | | | | | Diagnosis confirmed by: | | | | | | Osama | | | | | | Afua Mckeon/Neuropatholo | | | | | | gy Fellow and Vijaya | | | | | | RItalia Resendiz, | | | | | | MAna,Ph.D./Neuropatholog | | | | | | ist Clinical | | | | | | History:The patient is a | | | | | | 44-year-old female with | | | | | | a brain tumor. Per | | | | | | Epic, she hadhistory of | | | | | | long standing headaches, | | | | | | worsening in severity | | | | | | and areassociated with | | | | | | photophobia and blurry | | | | | | vision. MRI revealed | | | | | | aheterogeneously | | | | | | enhancing lesion along | | | | | | the floor of the fourth | | | | | | ventricle. Gross | | | | | | Description:Received are | | | | | | 2 specimens, A fresh B | | | | | | in formalin, in | | | | | | containers labeled | | | | | | withthe patient name | | | | | | (initials TM) and: | | | | | | A: Fourth ventricular | | | | | | tumor: Received is a | | | | | | 1 x 1 x 0.6 cm | | | | | | unoriented,soft, pink | | | | | | piece of tissue. The | | | | | | specimen is serially | | | | | | sectioned, and aportion | | | | | | is submitted for frozen | | | | | | section diagnosis and is | | | | | | resubmitted. | | | | | | Theremainder is | | | | | | entirely submitted. | | | | | | B: Fourth | | | | | | ventricular tumor: | | | | | | Received are multiple | | | | | | elliott-white to | | | | | | kruse-grayfragments of | | | | | | soft tissue measuring 3 | | | | | | x 2 x 0.5 cm in | | | | | | aggregate. | | | | | | Sectioningthrough the | | | | | | larger fragments reveals | | | | | | unremarkable cut | | | | | | surfaces. The | | | | | | entirespecimen is | | | | | | submitted. | | | | | | Cassette Index:A: | | | | | | Fourth ventricular | | | | | | tumor:A1, frozen section | | | | | | residueA2, remainder of | | | | | | specimenB: Fourth | | | | | | ventricular | | | | | | tumor:B1-2KRK(A)/DWS(B)/ | | | | | | sg(A)/tp(B) My | | | | | | electronic signature | | | | | | indicates that I have | | | | | | personally reviewed | | | | | | alldiagnostic slides, | | | | | | the gross and/or | | | | | | microscopic portion of | | | | | | thisreport and | | | | | | formulated the final | | | | | | diagnosis. | | | | | | Rendering Diagnostician: | | | | | | Vijaya Resendiz | | | | | | M.D., | | | | | | Ph.D.PathologistElectr | | | | | | onically Signed | | | | | | 10/29/2014 5:09PM | | | | + + + + + + + + | Specimen | + + | | + + + + + + + | Performing | Address | City/State/Zipcode | Phone Number | | Organization | | | | + + + + + | [facility] | [address] | [place] [address] | | | PATHOLOGY | [address] | | | + + + + + CARDIOLOGY (2014 12:00 AM PDT) + + + | Narrative | Performed At | + + + | | | | | | + + + + + | Procedure Note | + + | Allan Anthony - 10/30/2014 11:50 PM PDT | + + documented in this encounter Visit Diagnoses + + | Diagnosis | + + | 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) Neoplasm of uncertain | | behavior of brain and spinal cord | + + documented in this encounter Administered Medications + +--------+ +------+------+ + | Medication Order | MAR | Action | Dose | Rate | Site | | | Action | Date | | | | + +--------+ +------+------+ + | bacitracin 50,000 Units, | Given | 10/25/19 | | | Surgical | | ringers (TIS-U-NASRIN) 1,000 mL | | 15 1:09 | | | Site | | INTRAPROCEDURE PRN, Starting Wed | | PM PDT | | | | | 10/24/14 at 1308, Until Wed | | | | | | | 10/24/14 at 1801 | | | | | | + +--------+ +------+------+ + +-------+ +---+---+ + | Given | 10/25/19 | | | Surgical | | | 15 1:08 | | | Site | | | PM PDT | | | | +-------+ +---+---+ + +---+---+ | | | +---+---+ + +-------+ +---------+---+ + | bacitracin ointment | Given | 10/25/19 | 1 strip | | Surgical | | INTRAPROCEDURE PRN, Starting Wed | | 15 1:09 | | | Site | | 10/24/14 at 1309, Until Wed | | PM PDT | | | | | 10/24/14 at 1801 | | | | | | + +-------+ +---------+---+ + +---+---+ | | | +---+---+ + +-------+ +-------+---+ + | bupivacaine-EPINEPHrine | Given | 10/25/19 | 10 mL | | Surgical | | (MARCAINE-EPINEPHRINE) 0.5 | | 15 2:11 | | | Site | | %-1:200,000 injection | | PM PDT | | | | | INTRAPROCEDURE PRN, Starting Wed | | | | | | | 10/24/14 at 1411, Until Wed | | | | | | | 10/24/14 at 1801 | | | | | | + +-------+ +-------+---+ + +---+---+ | | | +---+---+ + +-------+ +--------+---+ + | thrombin 5000 unit topical | Given | 10/25/19 | 5,000 | | Surgical | | solution INTRAPROCEDURE PRN, | | 15 1:09 | Units | | Site | | Starting Wed10/24/14 at 1308, | | PM PDT | | | | | Until Wed10/24/14 at 1801 | | | | | | + +-------+ +--------+---+ + +-------+ +--------+---+ + | Given | 10/25/19 | 5,000 | | Surgical | | | 15 1:08 | Units | | Site | | | PM PDT | | | | +-------+ +--------+---+ + +---+---+ | | | +---+---+ documented in this encounter
--- OUTSIDE RECORDS SUMMARY | ~2019-08-09 | XMS | Encounter Summary ---
Demographics + + + | Address | [address] | | | [place] [address] | + + + | Home Phone | | + + + | Preferred Language | Unknown | + + + | Marital Status | | + + + | Caodaism Affiliation | 1027 | + + + | Race | Unknown | + + + | Ethnic Group | Unknown | + + + Author + + + | Author | [facility] | | | and [place] | + + + | Organization | [facility] | | | [...] Team Providers + +------+ + | Care Home Theater Specialist Name | Role | Phone | + +------+ + PCP | Unavailable | + +------+ + Encounter Details +--------+ + + + + | Date | Type | Department | Care Team | Description | +--------+ + + + + | 10/12/ | Hospital | [facility] | Handy Anderson P, | | | 1993 | Encounter | [facility] | DO [address] | | | | | GENERIC OP CONV DEPT | [address] [place], [place] | | | | | [address] | [phone] | | | | | [place], [place] | | | | | | [address] | | | | | | [phone] | | | +--------+ + + + [...]
--- OUTSIDE RECORDS SUMMARY | ~2019-08-09 | XMS | Encounter Summary ---
Demographics + + + | Address | [address] | | | [place] [address] | + + + | Home Phone | | + + + | Preferred Language | Unknown | + + + | Marital Status | | + + + | Sabianism Affiliation | LDS | + + + | Race | White | + + + | Ethnic Group | Not or | + + + Author + + + | Author | [facility] | + + + | Organization | [facility] | + + + | [...] Team Providers + +------+ + | Care Silver Spray Worker Name | Role | Phone | + +------+ + | Marixa Weber MD | PCP | | + +------+ + Encounter Details +--------+ + + + + | Date | Type | Department | Care Team | Description | +--------+ + + + + | 08/28/ | Document-Sc | UNKNOWN DEPARTMENT | Other, Faculty | | | 2014 | anned | [address] | [phone] | | | | | [address] | | | | | | [place], [place] | | | | | | [address] | | | +--------+ + + + [...]
--- OUTSIDE RECORDS SUMMARY | ~2019-08-09 | XMS | Encounter Summary ---
Demographics + + + | Address | [address] | | | [place] [address] | + + + | Home Phone [...] Team Providers + +------+ + | Care It Specialist Name | Role | Phone | + +------+ + PCP | Unavailable | + +------+ + Encounter Details +--------+ + + + + | Date | Type | Department | Care Team | Description | +--------+ + + + + | 09/22/ | Hospital | [facility] | Handy Anderson P, | | | 1993 | Encounter | [facility] | DO [address] | | | | | GENERIC OP CONV DEPT | [address] [place], [place] | | | | | [address] | [phone] | | | | | [place], [place] | | | | | | [address] | | | | | | [phone] | | | +--------+ + + + [...]
--- OUTSIDE RECORDS SUMMARY | ~2019-08-09 | XMS | Encounter Summary ---
Demographics + + + | Address | [address] | | | [place] [address] | + + + | Home Phone [...] + + | Author | [facility] | | | and [place] | + + + | Organization | [facility] | | | [...] Team Providers + +------+ + | Care Scissors Sharpener Name | Role | Phone | + +------+ + PCP | Unavailable | + +------+ + Encounter Details +--------+ + + + + | Date | Type | Department | Care Team | Description | +--------+ + + + + | 07/01/ | Hospital | [facility] | Handy Anderson P, | | | 1993 - | Encounter | [facility] | DO [address] | | | | | GENERIC OP CONV DEPT | [address] [place], [place] | | | 07/15/ | | [address] | [phone] | | | 1993 | | [place], [place] | | | | | | [address] | | | | | | [phone] | | | +--------+ + + + [...]
--- OUTSIDE RECORDS SUMMARY | ~2019-08-09 | XMS | Encounter Summary ---
Demographics + + + | Address | [address] | | | [place] [address] | + + + | Home Phone | | + + + | Preferred Language | Unknown | + + + | Marital Status | | + + + | Islam Affiliation | LDS | + + + | Race | White | + + + | Ethnic Group | Not or | + + + Author + + + | Author | [facility] | + + + | Organization | [facility] | + + + | Address | [...] Team Providers + +------+ + | Care Cutter And Presser Name | Role | Phone | + +------+ + | Ashwini Ochoa NP | PCP | | + +------+ + Reason for Visit + + + | Reason | Comments | + + + | MRI Results | | + + + Encounter Details +--------+ + + + + | Date | Type | Department | Care Team | Description | +--------+ + + + + | 03/02/ | Telephone | Neurosurgery at | Bart Graham MD | MRI Results | | 2017 | | [facility] [address] | [address] | | | | | Ave Mailcode: CH[address] | [place], [place] | | | | | [facility] | [address] | | | | | and [place], | [phone] | | | | | [facility] | | | | | | [place], [place] | | | | | | [address] | | | | | | [phone] | | | +--------+ + + + [...]
--- OUTSIDE RECORDS SUMMARY | ~2019-08-09 | XMS | Encounter Summary ---
Demographics + + + | Address | [address] | | | [place] [address] | + + + | Home Phone | | + + + | Preferred Language | Unknown | + + + | Marital Status | | + + + | Tenriism Affiliation | 1027 | + + + | Race | Unknown | + + + | Ethnic Group | Unknown | + + + Author + + + | Author | [facility] | | | and [place] | + + + | Organization | [facility] | | [...] Team Providers + +------+ + | Care Optical Lab Technician Name | Role | Phone | + +------+ + | Ronda Wade MD | PCP | | + +------+ + Encounter Details +--------+ + + + + | Date | Type | Department | Care Team | Description | +--------+ + + + + | 04/28/ | Orders Only | [facility] | Abram Friend MD | | | 2013 | | [address] | [address] | | | | | [place] | [place] | | | | | [address] | [address] | | | | | [phone] | | | | | | | [...] | + +--------+ + + + | COMPREHENSIVE | Routin | 04/28/2014 | | Results for this | | METABOLIC PANEL | e | 4:42 AM | | procedure are in the | | | | PDT | | results section. | + +--------+ + + + documented in this encounter Results Comprehensive Metabolic Panel (04/28/2014 4:42 AM PDT) + + + + + + | Component | Value | Ref Range | Performed | Pathologist | | | | | At | Signature | + + + + + + | Na | 135 | 135 - 143 | EXTERNAL | | | | | mmol/L | LAB | | + + + + + + | K | 4.4 | 3.5 - 4.9 | EXTERNAL | | | | | mmol/L | LAB | | + + + + + + | Cl | 105 | 99 - 109 mmol/L | EXTERNAL | | | | | | LAB | | + + + + + + | CO2 | 29 | 23 - 32 mmol/L | EXTERNAL | | | | | | LAB | | + + + + + + | Anion Gap | 5 | 5 - 20 mmol/L | EXTERNAL | | | | | | LAB | | + + + + + + | Glucose, | 128 (H) | 65 - 99 mg/dL | EXTERNAL | | | Fasting | | | LAB | | + + + + + + | BUN | 31 (H) | 8 - 25 mg/dL | EXTERNAL | | | | | | LAB | | + + + + + + | Creatinine | 1.08 (H) | 0.50 - 1.00 | EXTERNAL | | | | | mg/dL | LAB | | + + + + + + | BUN/Creatin | 29 | | EXTERNAL | | | ine Ratio | | | LAB | | + + + + + + | Calcium | 9.1 | 8.5 - 10.2 | EXTERNAL | | | | | mg/dL | LAB | | + + + + + + | Protein, | 5.8 (L) | 6.3 - 8.2 g/dL | EXTERNAL | | | Total | | | LAB | | + + + + + + | Albumin | 2.8 (L) | 3.6 - 5.0 g/dL | EXTERNAL | | | | | | LAB | | + + + + + + | Globulin | 3.0 | 1.3 - 4.9 g/dL | EXTERNAL | | | | | | LAB | | + + + + + + | A/G Ratio | 0.9 (L) | 1.0 - 2.4 | EXTERNAL | | | | | | LAB | | + + + + + + | Bilirubin | 0.2 | 0.1 - 1.5 mg/dL | EXTERNAL | | | Total | | | LAB | | + + + + + + | ALP, | 71 | 35 - 115 U/L | EXTERNAL | | | External | | | LAB | | + + + + + + | AST | 10 | 10 - 45 U/L | EXTERNAL | | | | | | LAB | | + + + + + + | ALT | 7 (L) | 10 - 65 U/L | EXTERNAL | | | | | | LAB | | + + + + + + | Estimated | 59 (L)Comment: GFR <60: | mL/min/1.73m2 | EXTERNAL | | | GFR | CHRONIC KIDNEY DISEASE, | | LAB | | | | IF FOUND OVER A 3 MONTH | | | | | | PERIOD. GFR <15: KIDNEY | | | | | | FAILURE. FOR | | | | | | AMERICANS, MULTIPLY THE | | | | | | CALCULATED GFR BY | | | | | | 1.210.Testing performed | | | | | | at [facility], [address] | | | | | [address], | | | | | | [place] [address] | | | | + + + [...]
--- OUTSIDE RECORDS SUMMARY | ~2019-08-09 | XMS | Encounter Summary ---
Demographics + + + | Address | [address] | | | [place] [address] | + + + | Home Phone | | + + + | Preferred Language | Unknown | + + + | Marital Status | | + + + | Jew Affiliation | 1027 | + + + | Race | Unknown | + + + | Ethnic Group | Unknown | + + + Author + + + | Author | [facility] | | | and [place] | + + + | Organization | [facility] | | [...] Team Providers + +------+ + | Care Securities Vault Supervisor Name | Role | Phone | + +------+ + | Ronda Wade MD | PCP | | + +------+ + Encounter Details +--------+ + + + + | Date | Type | Department | Care Team | Description | +--------+ + + + + | 04/27/ | Orders Only | [facility] | Abram Friedn MD | | | 2013 | | [address] | [address] | | | | | [place] | [place] | | | | | [address] | [address] | | | | | [phone] | | | | | | | [...] | + +--------+ + + + | CK TOTAL | Routin | 04/27/2014 | | Results for this | | | e | 5:00 AM | | procedure are in the | | | | PDT | | results section. | + +--------+ + + + documented in this encounter Results CK Total (04/27/2014 5:00 AM PDT) + + + + + + | Component | Value | Ref Range | Performed | Pathologist | | | | | At | Signature | + + + + + + | CK, Total | 29 (L)Comment: Testing | 30 - 240 U/L | EXTERNAL | | | | performed at [facility] | | LAB | | | | Health; [address] [facility]; | | | | | | [place] [address] | | | | + + + + + + + + | Specimen | + + | | + + + + + | Narrative | Performed At | + + + | Attending/Visit Provider: MINNIE MD, Almaz PACE, , , ИРИНА, | EXTERNAL LAB | [...]
--- OUTSIDE RECORDS SUMMARY | ~2019-08-09 | XMS | Encounter Summary ---
Demographics + + + | Address | [address] | | | [place] [address] | + + + | Home Phone | | + + + | Preferred Language | Unknown | + + + | Marital Status | | + + + | Hindu Affiliation | 1027 | + + + | Race | Unknown | + + + | Ethnic Group | Unknown | + + + Author + + + | Author | [facility] | | | and [place] | + + + | Organization | [facility] | | | [...] Team Providers + +------+ + | Care Agriculture Technician Name | Role | Phone | + +------+ + | Ronda Wade MD | PCP | | + +------+ + Encounter Details +--------+ + + + + | Date | Type | Department | Care Team | Description | +--------+ + + + + | 03/26/ | Orders Only | [facility] | Conversion | | | 2013 | | [address] | Transaction, | | | | | [place] | Provider Unknown | | | | | [address] | [phone] | | | | | [phone] | | | +--------+ + + + [...] | EXTERNAL LAB: CBC | Routin | 03/26/2014 | | Results for this | | | e | 6:06 AM | | procedure are in the | | | | PDT | | results section. | + +--------+ + + + documented in this encounter Results External Lab: CBC (03/26/2014 6:06 AM PDT) + + + + + + | Component | Value | Ref Range | Performed | Pathologist | | | | | At | Signature | + + + + + + | WBC | 11.8 (H)Comment: Testing | 3.8 - 11.0 K/uL | EXTERNAL | | | | performed at [facility] | | LAB | | | | Health; [address]; | | | | | | [place] [address] | | | | + + + + + + | RED CELL | 2.99 (L)Comment: Testing | 3.70 - 5.10 | EXTERNAL | | | COUNT | performed at [facility] | M/uL | LAB | | | | Health; [address]; | | | | | | [place] [address] | | | | + + + + + + | Hgb | 8.6 (L)Comment: Testing | 11.3 - 15.5 | EXTERNAL | | | | performed at [facility] | g/dL | LAB | | | | Health; [address]; | | | | | | [place] [address] | | | | + + + + + + | Hematocrit, | 27.6 (L)Comment: Testing | 34.0 - 46.0 % | EXTERNAL | | | POC | performed at [facility] | | LAB | | | | Health; [address]; | | | | | | [place] [address] | | | | + + + + + + | MCV | 92.4Comment: Testing | 80.0 - 100.0 fl | EXTERNAL | | | | performed at [facility] | | LAB | | | | Health; [address]; | | | | | | [place] [address] | | | | + + + + + + | MCH | 28.9Comment: Testing | 27.0 - 34.0 pg | EXTERNAL | | | | performed at [facility] | | LAB | | | | Health; [address]; | | | | | | [place] [address] | | | | + + + + + + | MCHC | 31.3 (L)Comment: Testing | 32.0 - 35.5 | EXTERNAL | | | | performed at [facility] | g/dL | LAB | | | | Health; [address]; | | | | | | [place] [address] | | | | + + + + + + | RDW-CV | 72.2 (H)Comment: Testing | 37 - 53 fl | EXTERNAL | | | | performed at [facility] | | LAB | | | | Health; [address]; | | | | | | [place] [address] | | | | + + + + + + | Platelet | 604 (H)Comment: Testing | 150 - 400 K/uL | EXTERNAL | | | Count | performed at [facility] | | LAB | | | Plasma | Health; [address]; | | | | | | [place] [address] | | | | + + + + + + | MPV | 6.6Comment: Testing | fl | EXTERNAL | | | | performed at [facility] | | LAB | | | | Health; [address]; | | | | | | [place] [address] | | | | + + + + + + | Differentia | MANUALComment: Testing | | EXTERNAL | | | l Type | performed at [facility] | | LAB | | | | Health; [address]; | | | | | | [place] [address] | | | | + + + + + + | Segmented | 54Comment: Testing | % | EXTERNAL | | | Neutrophils | performed at [facility] | | LAB | | | Manual | Health; [address]; | | | | | | [place] [address] | | | | + + + + + + | % | 6Comment: Testing | % | EXTERNAL | | | Metamyelocy | performed at [facility] | | LAB | | | curly | Health; [address]; | | | | | | [place] [address] | | | | + + + + + + | Lymphocytes | 24Comment: Testing | % | EXTERNAL | | | Manual | performed at [facility] | | LAB | | | | Health; [address]; | | | | | | [place] [address] | | | | + + + + + + | Monocytes | 1Comment: Testing | % | EXTERNAL | | | Manual | performed at [facility] | | LAB | | | | Health; [address]; | | | | | | [place] [address] | | | | + + + + + + | Eosinophils | 15Comment: Testing | % | EXTERNAL | | | Manual | performed at [facility] | | LAB | | | | Health; [address]; | | | | | | [place] [address] | | | | + + + + + + | Absolute | 6.4Comment: Testing | 1.9 - 7.4 K/uL | EXTERNAL | | | Neutrophils | performed at [facility] | | LAB | | | | Health; [address]; | | | | | | [place] [address] | | | | + + + + + + | Absolute | 0.7 (H)Comment: Testing | K/uL | EXTERNAL | | | Metamyelocy | performed at [facility] | | LAB | | | curly | Health; [address]; | | | | | | [place] [address] | | | | + + + + + + | Absolute | 2.8Comment: Testing | 1.0 - 3.9 K/uL | EXTERNAL | | | Lymphocytes | performed at [facility] | | LAB | | | | Health; [address]; | | | | | | [place] [address] | | | | + + + + + + | Absolute | 0.1Comment: Testing | 0 - 0.8 K/uL | EXTERNAL | | | Monocytes | performed at [facility] | | LAB | | | | Health; [address]; | | | | | | [place] [address] | | | | + + + + + + | Absolute | 1.8 (H)Comment: Testing | 0 - 0.5 K/uL | EXTERNAL | | | Eosinophils | performed at [facility] | | LAB | | | | Health; [address]; | | | | | | [place] [address] | | | | + + + + + + | RBC | 1+ | | EXTERNAL | | | Morphology [...] | EXTERNAL | | | Morphology | [facility]; [address] | | LAB | | | | [place] | | | | | | [address] | | | | + + + + + + + + | Specimen | + + | | + + + + + | Narrative | Performed At | + + + | Attending/Visit Provider: MINNIE MD, Almaz PACE, , , , ИРИНА, | EXTERNAL LAB | | Ordering Provider: GUILLE DO, MARIA , , , , CLYDE, | | [...]
--- OUTSIDE RECORDS SUMMARY | ~2019-08-09 | XMS | Encounter Summary ---
Demographics + + + | Address | [address] | | | [place] [address] | + + + | Home Phone | | + + + | Preferred Language | Unknown | + + + | Marital Status | | + + + | Lutheran Affiliation | 1027 | + + + | Race | Unknown | + + + | Ethnic Group | Unknown | + + + Author + + + | Author | [facility] | | | and [place] | + + + | Organization | [facility] | | | [...] Team Providers + +------+ + | Care Turbo Electric Operator Name | Role | Phone | [...] Provider Unknown | | | | | [address] | [phone] | | | | | [phone] | | | +--------+ + + + [...] + | C-REACTIVE PROTEIN | Routin | 03/25/2014 | | Results for this | | | e | 6:01 AM | | procedure are in the | | | | PDT | | results section. | + +--------+ + + + documented in this encounter Results C-Reactive Protein (03/25/2014 6:01 AM PDT) + + + + + + | Component | Value | Ref Range | Performed | Pathologist | | | | | At | Signature | + + + + + + | CRP | 2.1 (H)Comment: Testing | mg/dL | EXTERNAL | | | | performed at [facility] | | LAB | | | | Health; [address]; | | | | | | [place] [address] | | | | + + + + + + + + | Specimen | + + | | + + + + + | Narrative | Performed At | + + + | Attending/Visit Provider: MINNIE MD, Almaz PACE, , , , ИРИНА, | EXTERNAL LAB | | Ordering Provider: CHINO/MARY ANN LÓPEZ DO , , , , CLYDE, | | [...]
--- OUTSIDE RECORDS SUMMARY | ~2019-08-09 | XMS | Encounter Summary ---
Demographics + + + | Address | [address] | | | [place] [address] | + + + | Home Phone [...] Author | [facility] | + + + | Organization | 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 We are located at the [facility], [address] [place] [address]. Address: [address] [place] [address]. Please call [phone] for questions o r concerns. 2. Follow up with your PCP to review your hospital course and medication changes. Please call to schedule this appointment. Future Appointments Date & Time Provider Department Dept Phone Center 11/09/2014 9:30 AM Bart Graham Neurosurgery at [facility] [phone] Neurosurgery Discharging Physician: JAIME HOWARD MD Attending [...] once daily in | | 0 | /20/20 | | | mg oral tablet | [...] 14 | | | | bedtime. 2 pbpe=178 | | | | | | | [...] issues Jaime Howard MD Neurosurgery Resident Pager #[phone] MEDICATIONS Current Facility-Administered Medications Medication acetaminophen (TYLENOL) [...] as described in the r esident note. OOhSachin ta MD - 7:35 PM PDT 7NSICU ATTENDING NEUROINTENSIVIST PROGRESS NOTE Team Pager: [phone] Attendin -------- EVENING NOTE -------- Date:10/25/2014 Critical Care Attending Physician: SACHIN WARD MD Referring Attending Physician: Bart Graham MD I saw and evaluated the patient at the bedside with the HO/VAIBHAV. I reviewed all data and the recent [...] s/s of infection # Bipolar: Restart Wellbutrin, Ogilvie, Duloxetine, Ziprasidone, and lorazepam (prn) # Lines: CVL (subclavian), matos, PIV - d/c matos Relevant Risks: This patient is currently at risk for the following: cerebral edema, hydroc ephalus, intracerebral hemorrhage and seizure; central line associated blood stream infectio n, DVT/Pulmonary embolism, ICU delirium and UTI. I spent 30 minutes actively involved in the care and management of this patient. Sachin Ward MD [facility] DEPARTMENT: [id number] ICU NEURO Place of Service:- Inpatient Date of Service: 10/25/2014 CSN: [id number] Suggested Modifier: None Suggested CPT: TO [employer] RELEVANT DATA: Last Vitals: BP 112/66 | [...] 10.2* HCT 35.2* 34.4* PLT 403* 393 Becca Zuniga MD - 10/25/2014 12:37 PM PDTNSICU ATTENDING Author: Becca Alegria MD I saw and evaluated the [...] charting, and discussion with treatment decision maker. [facility] DEPARTMENT: [id number] CRITICAL CARE Place of Service: Inpatient Date of Service: 10/25/2014 CSN: [id number] Suggested Level of Care: 30230 - CRITICAL CARE, 1ST HOUR EACH DAY [...] NSGY att: Dr. Graham ICU#1. POD#1. HPI: Jaradinocenciorandy Villegas is a 44yo female with a [...] MRI -dexamethasone 4mg q6--slow taper ordered. 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 (Relevant data is listed at the bottom of this note). CC / Hx / Last 24hr: s/p 1) Suboccipital craniectomy and C1 laminectomy 2) Resection of fo urth ventricular mass; Tium mesh cranioplasty Patient Active Problem List Diagnosis Neoplasm of brain PMH: Bipolar, anxiety, headaches , GERD, asthma Home meds: Ziprasidone, Tramadol, Topiramate, Lorazepam, Ogilvie, Lansoprazole, Dilaudid, Celecoxib, g abapentin, duloxetine, bupropion, [...] opioids: continue gabapentin # Bipolar: Restart Wellbutrin, Ogilvie, Duloxetine, Ziprasidone, and lorazepam (prn) # Lines: arterial line, CVL (subclavian), matos, PIV Relevant Risks: This patient is currently at risk for the following: cerebral edema, hy drocephalus, intracerebral hemorrhage and seizure; central line associated blood stream infe ction, DVT/Pulmonary embolism, ICU delirium and UTI. I spent 65 minutes actively involved in the care and management of this patient. Sachin Ward MD [facility] DEPARTMENT: [id number] ICU NEURO Place of Service:- Inpatient Date of Service: erEDICAL RECORD NUMBER [id number] CSN: [id number] Suggested Modifier: None Suggested CPT: TO [employer] RELEVANT DATA: Last Vitals: BP 139/80 | [...] | + +--------+ + + + | CORNELIO, POC | Routin | 2014 | Neoplasm [...] (H) | 60 - 99 mg/dL | [facility] - | | | GLUCOSE, | | [...] + + + + | [facility] | [address] | [place], [place] | | | [place] POINT OF CARE | [address] | [address] | | | TESTS | | | [...] + + + + | [facility] | [address] | [place], [place] | | | MALINA NELSON OF BEL | [address] | [address] | | | TESTS | | | [...] | + + + + + | [facility] | [address] | [place] [address] | | | SERVICES, CORE | PARK [...] | | | LABORATORY | | | [place] | | | SERVICES, | | | [...] the MDRD equation recommended by the | [facility] | | National Kidney Disease Education Program. [...] | + + + + + | [facility] | [address] | [place] [address] | | | GABRIELLE MIRELES | [address]AYLEN [...] [facility] | [address] | [place], [place] | | | [place] POINT OF CARE | [address] | [address] | | | TESTS | | | [...] (H) | 60 - 99 mg/dL | [facility] - | | | GLUCOSE, | | [...] [facility] | [address] | [place], [place] | | | MALINA NELSON OF BEL | [address] | [address] | | | TESTS | | | [...] [facility] | [address] | [place], [place] | | | MALINA NELSON OF CARE | [address] | [address] | | | TESTS | | | [...] | + + + + + | [facility] oboxo | [address] | [place] [address] | | | SERVICES, CORE | KAYLEN [...] | | | LABORATORY | | | [place] | | | SERVICES, | | | [...] the MDRD equation recommended by the | [facility] | | National Kidney Disease Education Program. [...] | + + + + + | [facility] | [address] | [place] [address] | | | [facility], GABRIELLE | [address] | | | + + + + + CAPILLARY BLOOD GLUCOSE (NO CHG), POC (10/27/2014 6:39 AM PDT) + +---------+ + + + | Component | Value | Ref Range | Performed | Pathologist | | | | | At | Signature | + +---------+ + + + | BLOOD | 137 (H) | 60 - 99 mg/dL | [facility] - | | | GLUCOSE, | | [...] CHENG | [address] | [place], [place] | | | [place] POINT OF CARE | [address] | [address] | | | TESTS | | | [...] + + + + + | [facility] | [address] | [place], [place] | | | MALNIA NELSON OF CARE | [address] | [address] | | | TESTS | | | [...] | + + + + + | [facility] | [address] | [place], [place] | | | MALINA NELSON OF BEL | [facility] | [address] | | | TESTS | | | [...] (H) | 60 - 99 mg/dL | [facility] - | | | GLUCOSE, | | [...] CHENG | [address] | [place], [place] | | | [place] [facility]INT OF CARE | [address] | [address] | | | TESTS | | | | + + + + + OPERATION RECORD (10/26/2014 9:22 AM PDT) + + | Transcriptions | + + | Bart Graham MD - 2014 10:30 PM PDT Date of Service: 2014 Attending | | Surgeon: Bart Graham MD School Fundraising Director(s): Brady Conroy MD, | | PhD. 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 Her arms were tucked at her sides and all pressure | | points were carefully padded. We then registered the [employer] frameless stereotactic | | navigation system with [...] curette with Kerrison punches. We used a Floyd dissector to | | carefully dissect the [...] the subarachnoid space. We then used a Dylan | | elevator and opened the dura [...] were removed. She was removed from the [place] gaming department head | | and flipped into the supine [...] approach, resection of tumor and dural closureJustGEREMIAS Farnsworth/MODLDD: 2014 | | 18:04:22DT: 2014 22:30:30Job #: [id number] | + + CAPILLARY BLOOD GLUCOSE (NO [...] [facility] | [address] | [place], [place] | | | MALINA NELSON OF BEL | [facility] | [address] | | | TESTS | | | [...] (H) | 60 - 99 mg/dL | [facility] - | | | GLUCOSE, | | [...] CHENG | [address] | [place], [place] | | | [place] POINT OF CARE | [address] | [address] | | | TESTS | | | [...] [facility] | [address] | [place] [address] | | | SERVICES, CORE | PARK [...] | | | LABORATORY | | | [place] | | | SERVICES, | | | [...] | + + + + + | [facility] | [address] | [place] [address] | | | SERVICES, CORE | KAYLEN [...] [facility] | [address] | [place], [place] | | | [place] POINT OF CARE | [address] | [address] | | | TESTS | | | [...] [facility] | [address] | [place], [place] | | | [place] POINT OF CARE | [address] | [address] | | | TESTS | | | [...] + + + | [facility] | [address] | [place], [place] | | | MALINA NELSON OF BEL | [address] | [address] | | | TESTS | | | [...] [facility] | [address] | [place], [place] | | | [place] POINT OF CARE | [address] | [address] | | | TESTS | | | [...] | + + + + + | [facility] | [address] | [place] [address] | | | SERVICES, SPECIAL | [address] | | | | IMM + [...] | + + + + + | [facility] | [address] | [place] [address] | | | SERVICES, CORE | KAYLEN [...] | | | LABORATORY | | | [place] | | | SERVICES, | | | [...] the MDRD equation recommended by the | [facility] | | National Kidney Disease Education Program. Estimated GFR | LABORATORY | | Interpretive Information: <60 mL/min/1.73 sq m | [facility]LE [facility] | | Chronic Kidney Disease <15 mL/min/1.73 [...] | + + + + + | [facility] | [address] | [place] [address] | | | SERVICES, CORE | PARK [...] | | | | | | contrast. [id number] | | | | | | reformatted [...] | | + +---------+ + + | [facility] DEPARTMENT OF | | | | | RADIOLOGY | | | | + +---------+ + + X-RAY PORTABLE CHEST 1 VIEW (2014 6:53 PM PDT) + + + + + + | Component | Value | Ref Range | Performed | Pathologist | | | | | At | Signature | + + + + + + | X-RAY | EXAM: KS CHEST 1 VIEW | | | | [...] [facility] | [address] | [place] [address] | | | SERVICES, CORE | KAYLEN [...] | | | LABORATORY | | | [place] | | | SERVICES, | | | [...] | + + + + + | [facility] | [address] [facility] | [place] [address] | | | GABRIELLE MIRELES | [address] | | | + + + + + JIMENA BUSTAMANTE ONLY (2014 6:22 PM PDT) + + [...] | + + + + + | [facility] | [address] | [place] [address] | | | SERVICES, CORE | KAYLEN [...] | + + + + + | [facility] | [address] | [place] [address] | | | SERVICESGABRIELLE | [address] | | | + [...] | + + + + + | [facility] | [address] | [place] [address] | | | SERVICES, CORE | [address] | | | + + + + + LACTATE (ART)LAURYN (2014 1:21 PM PDT) + +---------+ + [...] + + + + | [facility] | [address] | [place], [place] | | | MALINA NELSON OF CARE | [address] | [address] | | | TESTS | | | [...] [facility] | | | | | | [place]INT | | | | | | OF CARE | | | | | | TESTS | | + +-------+ + + + + + | Specimen | + + | | + + + + + + + | Performing | Address | City/State/Zipcode | Phone Number | | Organization | | | | + + + + + | [facility] | [address] | [place], [place] | | | MALINA NELSON OF BEL | [facility] | [address] | | | TESTS | | | [...] | | POC | | mmol/L | [facility] | | | | | | MALINA [...] + + + + | [facility] | [address] | [place], [place] | | | MAL[facility] NELSON OF CARE | [address] | [address] | | | TESTS | | | [...] [facility] | [address] | [place], [place] | | | MALINA NELSON OF BEL | [facility] | [address] | | | TESTS | | | | + + + + + LAURYN GRIMES (2014 1:21 PM PDT) + +---------+ + [...] [facility] | [address] | [place], [place] | | | MALINA NELSON OF CARE | [facility] | [address] | | | TESTS | | | [...] [facility] | [address] | [place], [place] | | | MALINA NELSON OF BEL | [address] | [address] | | | TESTS | | | | + + + + + HEMOGLOBIN-COOXLAURYN (2014 1:21 PM PDT) + + + [...] | + + + + + | [facility] | [address] | [place], [place] | | | MALINA NELSON OF [facility] | [address] | [address] | | | TESTS | | | [...] + + + | [facility] | [address] | [place], [place] | | | MALINA NELSON OF [facility] | [address] | [address] | | | TESTS | | | [...] mass | | | | | | [id number] x 12 mm in | | | [...] | | | | | signed / BERTA V | | | | | | MATTEO [...] [facility] | [address] | [place] [address] | | | SERVICES, | [address] [...] | + + + + + | [facility] | [address] | [place] [address] | | | SERVICES, | [address] | | | | TRANSFUSION MEDICINE | | | | + + + + + INTRAOPERATIVE NEURO MONITORING (2014) + + + | Narrative | Performed At | + + + | Patient Name: Mendoza Villegas Date of : 1970 Medical | | | Record Number: [id number] Date of Test: 2014 Place of | | | Service: IP Intra Op (32) [id number] - [id number] INTRAOPERATIVE NEURO | | | MONITORING History: [...] of | | | Neurology Suggested CPT: 43935 - IOM Remote x 3 hr(s) 69504 - | | | Short Latency EP's Upper AND Lower extremities 99868 - Central Motor | | | EP's Upper AND Lower extremities 36068 - EMG Cranial Bilateral - IOM | | | 53326 - Neuromuscular Junction Test Suggested Diagnosis: 237.5 [...] Neuropathology | | | | | | fellowVijaya Resendiz, | | | | | | M.Abisai., Ph.D. / | | | | | [...] Vijaya | | | | | | R. Grafe, | | | | | | M.D.,Ph.D./Neuropatholog | | | | | | ist [...] | + + + + + | [facility] | [address] | [place] [address] | | | PATHOLOGY | [address] [...] brain | + + documented in this encounter Administered Medications + +--------+ +--------+------+------+ | Medication Order | MAR | Action | Dose | Rate | Site | | | Action | Date | | | | + +--------+ +--------+------+------+ | acetaminophen (TYLENOL) tablet | Given | 10/29/19 | 650 mg | | | | 325-650 mg 325-650 mg, oral, | | 15 8:38 | | | | | EVERY 6 HOURS NEEDED, Starting | | AM PDT | | | | | 10/24/14 at 1819, Until Sun | | | | | | | 10/28/14 at 1929, mild pain, fever | | | | | | + +--------+ +--------+------+------+ +-------+ +--------+---+---+ | Given | 10/28/19 | 650 mg | | | | | 15 8:26 | | | | | | PM PDT | | | | +-------+ +--------+---+---+ | Given | 10/28/19 | 650 mg | | | | | 15 1:53 | | | | | | PM PDT | | | | +-------+ +--------+---+---+ +---+---+ | | | +---+---+ + +-------+ +--------+---+---+ | buPROPion XL (WELLBUTRIN-XL) | Given | 10/29/19 | 300 mg | | | | tablet 300 mg 300 mg, oral, | | 15 8:36 | | | | | EVERY MORNING, First dose on Wed | | AM PDT | | | | | 10/25/14 at 0900, Until | | | | | | | Discontinued | | | | | | + +-------+ +--------+---+---+ +-------+ +--------+---+---+ | Given | 10/28/19 | 300 mg | | | | | 15 7:53 | | | | | | AM PDT | | | | +-------+ +--------+---+---+ | Given | 10/27/19 | 300 mg | | | | | 15 8:47 | | | | | | AM PDT | | | | +-------+ +--------+---+---+ +---+---+ | | | +---+---+ + +---------+ +------+---+---+ | dexamethasone (DECADRON) | New Bag | 10/26/19 | 4 mg | | | | injection 4 mg 4 mg, | | 15 8:05 | | | | | intravenous, EVERY 6 HOURS, First | | AM PDT | | | | | dose on Wed10/24/14 at 2000, | | | | | | | Until Discontinued | | | | | | + +---------+ +------+---+---+ +---------+ +------+---+---+ | New Bag | 10/26/19 | 4 mg | | | | | 15 2:02 | | | | | | AM PDT | | | | +---------+ +------+---+---+ | New Bag | 10/25/19 | 4 mg | | | | | 15 8:10 | | | | | | PM PDT | | | | +---------+ +------+---+---+ +---+---+ | | | +---+---+ + +-------+ +------+---+---+ | dexamethasone (DECADRON) tablet | Given | 10/29/19 | 4 mg | | | | 4 mg 4 mg, oral, EVERY 6 HOURS, | | 15 11:37 | | | | | 16 doses, First dose on Calista | | AM PDT | | | | | 10/25/14 at 0400, Last dose on Sun | | | | | | | 10/28/14 at 2200 | | | | | | + +-------+ +------+---+---+ +-------+ +------+---+---+ | Given | 10/29/19 | 4 mg | | | | | 15 4:53 | | | | | | AM PDT | | | | +-------+ +------+---+---+ | Given | 10/28/19 | 4 mg | | | | | 15 8:26 | | | | | | PM PDT | | | | +-------+ +------+---+---+ +---+---+ | | | +---+---+ + +-------+ +-------+---+---+ | DULoxetine (CYMBALTA) capsule | Given | 10/29/19 | 60 mg | | | | 60 mg 60 mg, oral, EVERY | | 15 8:36 | | | | | MORNING, First dose on Calista | | AM PDT | | | | | 10/25/14 at 0900, Until | | | | | | | Discontinued | | | | | | + +-------+ +-------+---+---+ +-------+ +-------+---+---+ | Given | 10/28/19 | 60 mg | | | | | 15 7:53 | | | | | | AM PDT | | | | +-------+ +-------+---+---+ | Given | 10/27/19 | 60 mg | | | | | 15 8:47 | | | | | | AM PDT | | | | +-------+ +-------+---+---+ +---+---+ | | | +---+---+ + +-------+ +--------+---+---+ | gabapentin (NEURONTIN) capsule | Given | 10/28/19 | 900 mg | | | | 900 mg 900 mg, oral, AT BEDTIME, | | 15 8:26 | | | | | First dose on Wed10/24/14 at | | PM PDT | | | | | 2200, Until Discontinued | | | | | | + +-------+ +--------+---+---+ +-------+ +--------+---+---+ | Given | 10/27/19 | 900 mg | | | | | 15 10:31 | | | | | | PM PDT | | | | +-------+ +--------+---+---+ | Given | 10/26/19 | 900 mg | | | | | 15 9:42 | | | | | | PM PDT | | | | +-------+ +--------+---+---+ +---+---+ | | | +---+---+ + +---------+ +-------+---+---+ | hydrALAZINE (APRESOLINE) | New Bag | 10/25/19 | 10 mg | | | | injection 10 mg 10 mg, | | 15 10:27 | | | | | intravenous, EVERY 20 MINUTES | | PM PDT | | | | | NEEDED, Starting Wed10/24/14 at | | | | | | | 1819, Until 10/28/14 at 1929, | | | | | | | to achieve blood pressure goal | | | | | | + +---------+ +-------+---+---+ +---------+ +-------+---+---+ | New Bag | 10/25/19 | 10 mg | | | | | 15 8:09 | | | | | | PM PDT | | | | +---------+ +-------+---+---+ +---+---+ | | | +---+---+ + +---------+ +------+---+---+ | HYDROmorphone (DILAUDID) | New Bag | 10/27/19 | 1 mg | | | | injection 0.5-1 mg 0.5-1 mg, | | 15 4:18 | | | | | intravenous, EVERY 2 HOURS | | AM PDT | | | | | NEEDED, Starting [facility] 10/25/14 at | | | | | | | 1344, Until 10/28/14 at 1929, | | | | | | | moderate pain, severe pain | | | | | | + +---------+ +------+---+---+ +---------+ +--------+---+---+ | New Bag | 10/26/19 | 1 mg | | | | | 15 9:42 | | | | | | PM PDT | | | | +---------+ +--------+---+---+ | New Bag | 10/26/19 | 0.5 mg | | | | | 15 2:45 | | | | | | PM PDT | | | | +---------+ +--------+---+---+ +---+---+ | | | +---+---+ + +---------+ +--------+---+---+ | HYDROmorphone (DILAUDID) | New Bag | 10/26/19 | 0.5 mg | | | | injection 0.5-2 mg 0.5-2 mg, | | 15 10:48 | | | | | intravenous, EVERY 2 HOURS | | AM PDT | | | | | NEEDED, Starting Wed10/24/14 at | | | | | | | 1819, Until Wed10/25/14 at 1344, | | | | | | | moderate pain, severe pain | | | | | | + +---------+ +--------+---+---+ +---------+ +--------+---+---+ | New Bag | 10/26/19 | 0.5 mg | | | | | 15 5:30 | | | | | | AM PDT | | | | +---------+ +--------+---+---+ | New Bag | 10/26/19 | 0.5 mg | | | | | 15 1:23 | | | | | | AM PDT | | | | +---------+ +--------+---+---+ +---+---+ | | | +---+---+ + +-------+ +------+---+---+ | HYDROmorphone (DILAUDID) tablet | Given | 10/28/19 | 2 mg | | | | 2 mg 2 mg, oral, EVERY 3 HOURS | | 15 1:53 | | | | | NEEDED, Starting 10/26/14 | | PM PDT | | | | | at 1705, Until 10/27/14 at | | | | | | | 1411, severe pain | | | | | | + +-------+ +------+---+---+ +-------+ +------+---+---+ | Given | 10/28/19 | 2 mg | | | | | 15 10:36 | | | | | | AM PDT | | | | +-------+ +------+---+---+ | Given | 10/28/19 | 2 mg | | | | | 15 7:13 | | | | | | AM PDT | | | | +-------+ +------+---+---+ +---+---+ | | | +---+---+ + +-------+ +------+---+---+ | HYDROmorphone (DILAUDID) tablet | Given | 10/29/19 | 4 mg | | | | 2-4 mg 2-4 mg, oral, EVERY 3 | | 15 11:36 | | | | | HOURS NEEDED, Starting Sat | | AM PDT | | | | | 10/27/14 at 1411, Until Sun | | | | | | | 10/28/14 at 1929, severe pain | | | | | | + +-------+ +------+---+---+ +-------+ +------+---+---+ | Given | 10/29/19 | 4 mg | | | | | 15 8:35 | | | | | | AM PDT | | | | +-------+ +------+---+---+ | Given | 10/29/19 | 4 mg | | | | | 15 4:53 | | | | | | AM PDT | | | | +-------+ +------+---+---+ +---+---+ | | | +---+---+ + +-------+ +---------+---+---+ | insulin lispro (HUMALOG) | Given | 10/28/19 | 2 Units | | | | injection subcutaneous, WITH | | 15 10:03 | | | | | MEALS AND BEDTIME, First dose on | | PM PDT | | | | | Calista 10/25/14 at 1345, Until | | | | | | | Discontinued | | | | | | + +-------+ +---------+---+---+ +-------+ +---------+---+---+ | Given | 10/28/19 | 4 Units | | | | | 15 3:28 | | | | | | PM PDT | | | | +-------+ +---------+---+---+ | Given | 10/27/19 | 4 Units | | | | | 15 6:56 | | | | | | PM PDT | | | | +-------+ +---------+---+---+ +---+---+ | | | +---+---+ + +-------+ +--------+---+---+ | lithium carbonate capsule 600 | Given | 10/28/19 | 600 mg | | | | mg 600 mg, oral, AT BEDTIME, | | 15 8:26 | | | | | First dose on Wed10/24/14 at | | PM PDT | | | | | 2200, Until Discontinued | | | | | | + +-------+ +--------+---+---+ +-------+ +--------+---+---+ | Given | 10/27/19 | 600 mg | | | | | 15 10:31 | | | | | | PM PDT | | | | +-------+ +--------+---+---+ | Given | 10/26/19 | 600 mg | | | | | 15 9:47 | | | | | | PM PDT | | | | +-------+ +--------+---+---+ +---+---+ | | | +---+---+ + +-------+ +--------+---+---+ | LORazepam (ATIVAN) tablet 0.5 | Given | 10/27/19 | 0.5 mg | | | | mg 0.5 mg, oral, EVERY 6 HOURS | | 15 10:33 | | | | | NEEDED, Starting [facility] 10/25/14 | | PM PDT | | | | | at 0046, Until 10/28/14 at | | | | | | | 1929, anxiety | | | | | | + +-------+ +--------+---+---+ +-------+ +--------+---+---+ | Given | 10/27/19 | 0.5 mg | | | | | 15 4:17 | | | | | | AM PDT | | | | +-------+ +--------+---+---+ | Given | 10/26/19 | 0.5 mg | | | | | 15 9:42 | | | | | | PM PDT | | | | +-------+ +--------+---+---+ +---+---+ | | | +---+---+ + +---------+ + + +---+ | NaCl 0.9 % IV 10 mL/hr, | New Bag | 10/25/19 | 10 mL/hr | 10 mL/hr | | | intravenous, PROCEDURE | | 15 7:15 | | | | | CONTINUOUS, Starting Wed10/24/14 | | AM PDT | | | | | at 0600, Until Wed10/24/14 at | | | | | | | 1808 | | | | | | + +---------+ + + +---+ +---+---+ | | | +---+---+ + +---------+ +---+ +---+ | NaCl 0.9%-KCl 20 mEq/L IV | New Bag | 10/25/19 | | 75 mL/hr | | | infusion intravenous, | | 15 8:08 | | | | | CONTINUOUS, Starting 10/24/14 | | PM PDT | | | | | at 1745, Until [facility] 10/25/14 at | | | | | | | 1609, at 75 mL/hr | | | | | | + +---------+ +---+ +---+ +---+---+ | | | +---+---+ + + + +---------+---+---+ | nicotine (NICOTROL) 7 mg/24 hr | Applied | 10/29/19 | 1 patch | | | | 1 patch 1 patch, transdermal, | Patch | 15 8:36 | | | | | DAILY, First dose on 10/27/14 | | AM PDT | | | | | at 2030, Until Discontinued | | | | | | + + + +---------+---+---+ + + +---------+---+---+ | Applied Patch | 10/28/19 | 1 patch | | | | | 15 7:45 | | | | | | PM PDT | | | | + + +---------+---+---+ +---+---+ | | | +---+---+ + +-------+ +-------+---+---+ | omeprazole (PRILOSEC) capsule | Given | 10/29/19 | 40 mg | | | | 40 mg 40 mg, oral, DAILY, First | | 15 8:35 | | | | | dose on Wed10/25/14 at 0900, | | AM PDT | | | | | Until Discontinued | | | | | | + +-------+ +-------+---+---+ +-------+ +-------+---+---+ | Given | 10/28/19 | 40 mg | | | | | 15 7:53 | | | | | | AM PDT | | | | +-------+ +-------+---+---+ | Given | 10/27/19 | 40 mg | | | | | 15 8:47 | | | | | | AM PDT | | | | +-------+ +-------+---+---+ +---+---+ | | | +---+---+ + +-------+ +------+---+---+ | ondansetron (ZOFRAN) injection | Given | 10/25/19 | 4 mg | | | | 1 dose, Starting Wed10/24/14 at | | 15 8:09 | | | | | 2000, Until Wed10/24/14 at 2009 | | PM PDT | | | | + +-------+ +------+---+---+ +---+---+ | | | +---+---+ + +-------+ +-------+---+---+ | oxyCODONE (immediate release) | Given | 10/27/19 | 15 mg | | | | (ROXICODONE) tablet 5-15 mg 5-15 | | 15 4:47 | | | | | mg, oral, EVERY 3 HOURS | | PM PDT | | | | | NEEDED, Starting Wed10/24/14 at | | | | | | | 1819, Until Wed10/26/14 at 1705, | | | | | | | severe pain | | | | | | + +-------+ +-------+---+---+ +-------+ +-------+---+---+ | Given | 10/27/19 | 15 mg | | | | | 15 1:36 | | | | | | PM PDT | | | | +-------+ +-------+---+---+ | Given | 10/27/19 | 15 mg | | | | | 15 10:20 | | | | | | AM PDT | | | | +-------+ +-------+---+---+ +---+---+ | | | +---+---+ + +-------+ + +---+---+ | senna-docusate (SENOKOT S) | Given | 10/28/19 | 1 tablet | | | | 8.6-50 mg 1 tablet 1 tablet, | | 15 8:26 | | | | | oral, TWICE DAILY, First dose on | | PM PDT | | | | | 10/24/14 at 2100, Until | | | | | | | Discontinued | | | | | | + +-------+ + +---+---+ +-------+ + +---+---+ | Given | 10/28/19 | 1 tablet | | | | | 15 7:53 | | | | | | AM PDT | | | | +-------+ + +---+---+ | Given | 10/27/19 | 1 tablet | | | | | 15 8:47 | | | | | | AM PDT | | | | +-------+ + +---+---+ +---+---+ | | | +---+---+ + +-------+ +------+---+---+ | tiZANidine (ZANAFLEX) tablet 2 | Given | 10/29/19 | 2 mg | | | | mg 2 mg, oral, THREE TIMES DAILY | | 15 11:37 | | | | | NEEDED, Starting Wed10/26/14 | | AM PDT | | | | | at 1705, Until 10/28/14 at | | | | | | | 1929, muscle spasms | | | | | | + +-------+ +------+---+---+ +-------+ +------+---+---+ | Given | 10/28/19 | 2 mg | | | | | 15 10:35 | | | | | | AM PDT | | | | +-------+ +------+---+---+ | Given | 10/27/19 | 2 mg | | | | | 15 7:37 | | | | | | PM PDT | | | | +-------+ +------+---+---+ +---+---+ | | | +---+---+ + +-------+ +-------+---+---+ | topiramate (TOPAMAX) tablet 50 | Given | 10/29/19 | 50 mg | | | | mg 50 mg, oral, TWICE DAILY, | | 15 8:36 | | | | | First dose on Wed10/24/14 at | | AM PDT | | | | | 2100, Until Discontinued | | | | | | + +-------+ +-------+---+---+ +-------+ +-------+---+---+ | Given | 10/28/19 | 50 mg | | | | | 15 8:26 | | | | | | PM PDT | | | | +-------+ +-------+---+---+ | Given | 10/28/19 | 50 mg | | | | | 15 7:53 | | | | | | AM PDT | | | | +-------+ +-------+---+---+ +---+---+ | | | +---+---+ + +-------+ +--------+---+---+ | ziprasidone (GEODON) capsule | Given | 10/28/19 | 160 mg | | | | 160 mg 160 mg, oral, AT BEDTIME, | | 15 8:26 | | | | | First dose on Wed10/24/14 at | | PM PDT | | | | | 2200, Until Discontinued | | | | | | + +-------+ +--------+---+---+ +-------+ +--------+---+---+ | Given | 10/27/19 | 160 mg | | | | | 15 10:31 | | | | | | PM PDT | | | | +-------+ +--------+---+---+ | Given | 10/26/19 | 160 mg | | | | | 15 9:47 | | | | | | PM PDT | | | | +-------+ +--------+---+---+ +---+---+ | | | +---+---+ documented in this encounter
--- OUTSIDE RECORDS SUMMARY | ~2019-08-09 | XMS | Encounter Summary ---
Demographics + + + | Address | [address] | | | [place] [address] | + + + | Home Phone | | + + + | Preferred Language | Unknown | + + + | Marital Status | | + + + | Congregational Affiliation | 1027 | + + + | Race | Unknown | + + + | Ethnic Group | Unknown | + + + Author + + + | Author | [facility] | | | and [place] | + + + | Organization | [facility] | | [...] Team Providers + +------+ + | Care Splicing Supervisor Name | Role | Phone | + +------+ + PCP | Unavailable | + +------+ + Encounter Details +--------+ + + + + | Date | Type | Department | Care Team | Description | +--------+ + + + + | 05/14/ | Emergency | [facility] | [facility] | | | 1993 | | [facility] | [address] | | | | | [address] | [place] [address] | | | | | [address] | [phone] | | | | | [place], [place] | | | | | | [address] | | | | | | [phone] | | | +--------+ + + + [...]
--- OUTSIDE RECORDS SUMMARY | ~2019-08-09 | XMS | Clinical Summary ---
Demographics + + + | Address | [address] | | | [place] [address] | + + + | Home Phone | | + + + | Preferred Language | Unknown | + + + | Marital Status | | + + + | Holiness Affiliation | LDS | + + + [...] | | + + +---------+ + | Zian Barnett | ECON | Unknown | | + + +---------+ + Care Team Providers + +------+ + | Care Loan Analyst Name | Role | Phone | + +------+ + | Marixa Weber MD | PCP | | + +------+ + Source Comments [facility]UAN is fully live on both [facility] and [facility] + + + + + [...] | e | | | bedtime. 2 lhbe=529 | | | 14 | | | [...] 12/29/ | [id number] | | 3 - [id number]: Qty: | | Head | LIFESCIENCE | | 2017 | 91 / | | 1 on 2014 by Santos | | | S | | | /[id number] | | MD Bart at [facility] | | | | | | 70 | | REV LOC | | | | | | | + +------+-------+ +--------+--------+--------+ | Mesh Contour [id number] | | N/A: | [employer] [place] | | | 04.503 | | Malleable Matrix Neuro - | | Head | | | | .083 / | | [id number]: Qty: 1 on | | | | | | / | | 2014 by Bart rGaham, | | | | | | | | MD at [facility] INPATIENT REV LOC | | | | | | | + +------+-------+ +--------+--------+--------+ | Screw 04mm Ti Self-Drill | | N/A: | [facility] | | | 04.503 | | Matrix Neuro - | | Head | | | | .104.0 | | [id number]: Qty: 6 on | | | | | | 1 / / | | 2014 by Bart Graham, | | | | | | | | MD at [facility] INPATIENT REV LOC | | | | [...] | x | [address] | 8 | [address] | | | | STATE | | esent | | [place], | | | | | | | | [place] | | | | | | | | [address] | | + +--------+ +--------+ + +------+ [...] meredith | | | 1 (Home) | [phone] | + +--------+ +--------+ + + Advance [...]
--- OUTSIDE RECORDS SUMMARY | ~2019-08-09 | XMS | Encounter Summary ---
Demographics + + + | Address | [address] | | | [place] [address] | + + + | Home Phone | | + + + | Preferred Language | Unknown | + + + | Marital Status | | + + + | Confucianism Affiliation | 1027 | + + + [...] Phone | + + +---------+ + | Keay | ECON | Unknown | | | Moira | | | | + + +---------+ + Care Team Providers + +------+ + | Care Rail Car Repair Carman Name | Role | Phone | + +------+ + | Ronda Wade MD | PCP | | + +------+ + Encounter Details +--------+ + + + + | Date | Type | Department | Care Team | Description | +--------+ + + + + | 02/21/ | Hospital | [facility] [place] [facility] [place] | Conversion | Diagnosis unknown | | 2017 | Encounter | CONVERSION DEP [address] | Transaction, | | | | | [facility] | Provider Unknown | | | | | ALENA GAMING | [phone] | | | | | [address] | | | | | | [phone] | | | +--------+ + + + [...] + + + +---------+ + + | acetaminophen | Take 500-1,000 mg by | | 0 | | | | (TYLENOL) 500 mg | mouth every 6 hours | | | | | | tablet | as needed. | | | | | + + + +---------+ + + | albuterol | Inhale 2 puffs into | | 0 | | | | (VENTOLIN HFA) 90 | the lungs every 4 | | | | | | mcg/puff inhaler | hours as needed for | | | | | | | Wheezing. | | | | | + + + +---------+ + + | | Take 500 mg by mouth | | 0 | | | | ZYFB-Knfgqabm-Zxktye | as needed (pain). | | | | | | mine (PAMPRIN | | | | | | | MULTI-SYMPTOM PO) | | | | | | + + + +---------+ + + | diazePAM (VALIUM) | Take 5 mg by mouth | | 0 | | | | 5 mg tablet | every 8 hours as | | | | | | | needed. | | | | | + + + +---------+ + + | gabapentin | Take 600 mg by mouth | | 0 | 20 | | | (NEURONTIN) 300 mg | nightly. | | | 14 | | | capsule | | | | | | + + + +---------+ + + | | Take 25 mg by mouth | | 0 | | | | hydroCHLOROthiazide | Daily. | | | | | | 25 mg tablet | | | | | | + + + +---------+ + + | Multiple Vitamin | Take by mouth. | | 0 | | | | (MULTI-VITAMIN PO) | | | | | | + + + +---------+ + + | omeprazole | Take 20 mg by mouth | | 0 | | | | (PRILOSEC) 20 mg | Daily as needed. | | | | | | capsule | | | | | | + + + +---------+ + + | ondansetron | As needed for | 2 | 0 | 05/05/20 | | | (ZOFRAN) 4 mg tablet | nausea; stop prep; | tablet | | 17 | | | | take 1 tablet; wait | | | | | | | 30 min then resume | | | | | | | prep; repeat 1x prn | | | | | + + + +---------+ + + | POTASSIUM PO | Take 99 mg by mouth | | 0 | | | | | nightly. | | | | | + + + +---------+ + + | SUMAtriptan | Take 50 mg by mouth | | 0 | | | | (IMITREX) 50 mg | as needed for | | | | | | tablet | Migraine. | | | | | + + + +---------+ + + | traMADol (ULTRAM) | Take 50 mg by mouth | | 0 | | | | 25 mg TABS | Twice daily as | | | | | | | needed (pain). | | | | | + + + +---------+ + + | dicyclomine | Take 1 capsule by | 120 | 0 | 05/05/20 | | | (BENTYL) 10 mg | mouth 4 times daily. | capsule | | 17 | 8 | | capsule | | | | [...] CT SINUS WO CONTRAST | Routin | 01/27/2018 | | Results for this | | | e | 11:48 PM | | procedure are in the | | | | PDT | | results section. | + +--------+ + + + documented in this encounter Results CT Sinus wo Contrast (01/27/2018 11:48 PM PDT) + + | Specimen | + + | | + + + + + | Narrative | Performed At | + + + | This is a non-reportable procedure without a radiologist report and | | | is used for image storage only | | + + + + + | Procedure Note | + + | Juan Stahl - 03/15/2019 9:48 AM PDT This is a non-reportable procedure | | without a radiologist report and isused for image storage only | + + documented in this encounter Visit Diagnoses + + | Diagnosis | + + | Diagnosis unknown Other unknown and unspecified cause of morbidity or mortality | + + documented in this encounter"
--- OUTSIDE RECORDS SUMMARY | ~2019-08-09 | XMS | Encounter Summary ---
Demographics + + + | Address | [address] | | | [place] [address] | + + + | Home Phone [...] Team Providers + +------+ + | Care Bridge Worker Apprentice Name | Role | Phone | + +------+ + | Ronda Wade MD | PCP | | + +------+ + Encounter Details +--------+ + + + + | Date | Type | Department | Care Team | Description | +--------+ + + + + | 02/21/ | Hospital | [facility] | Conversion | Diagnosis unknown | | 2017 | Encounter | CONVERSION DEP [address] | Transaction, | | | | | [facility] | Provider Unknown | | | | | ALENA GAMING | [phone] | | | | | [address] | | | | | | [phone] | | | +--------+ + + + [...] | | 0 | | | | [facility] | as needed (pain). | | | [...]
--- OUTSIDE RECORDS SUMMARY | ~2019-08-09 | XMS | Encounter Summary ---
Demographics + + + | Address | [address] | | | [place] [address] | + + + | Home Phone | | + + + | Preferred Language | Unknown | + + + | Marital Status | | + + + | Quaker Affiliation | 1027 | + + + | Race | Unknown | + + + | Ethnic Group | Unknown | + + + Author + + + | Author | [facility] | | | and [place] | + + + | Organization | [facility] | | | and [...] Team Providers + +------+ + | Care Park Warden Name | Role | Phone | + +------+ + PCP | Unavailable | + +------+ + Encounter Details +--------+ + + + + | Date | Type | Department | Care Team | Description | +--------+ + + + + | 07/19/ | Emergency | [facility] | [facility] | | | 1993 | | [facility] | [address] | | | | | [address] [place], [place] | | | | | [address] | [address] | | | | | [place], [place] | | | | | | [address] | | | | | | [phone] | | | +--------+ + + + [...]
--- OUTSIDE RECORDS SUMMARY | ~2019-08-09 | XMS | Encounter Summary ---
Demographics + + + | Address | [address] | | | [place] [address] | + + + | Home Phone | | + + + | Preferred Language | Unknown | + + + | Marital Status | | + + + | Spiritism Affiliation | 1027 | + + + | Race | Unknown | + + + | Ethnic Group | Unknown | + + + Author + + + | Author | [facility] | | | and [place] | + + + | Organization | [facility] | | [...] Team Providers + +------+ + | Care Marine Equipment Engineer Name | Role | Phone | + +------+ + | Ronda Wade MD | PCP | | + +------+ + Reason for Visit Auth/Cert +--------+--------+ + + + + | Status | Reason | Specialty | Diagnoses / | Referred By | Referred To | | | | | Procedures | Contact | Contact | +--------+--------+ + + + + | | | | Diagnoses | | | | | | | Elevated | | | | | | | cholesterol | | | | | | | with | | | | | | | elevated | | | | | | | triglyceride | | | | | | | s (E78.2), | | | | | | | Obesity, | | | | | | | morbid, BMI | | | | | | | 40.0-49.9 | | | | | | | (HCC) | | | | | | | (E66.01), | | | | | | | Abdominal | | | | | | | pain, | | | | | | | epigastric | | | | | | | (R10.13), | | | | | | | Diarrhea, | | | | | | | unspecified | | | | | | | type | | | | | | | (R19.7), | | | | | | | Benzodiazepi | | | | | | | ne dep | | | | | | | (F13.20) | | | | | | | Bipolar | | | | | | | affective | | | | | | | disorder, | | | | | | | remission | | | | | | | status | | | | | | | unspecified | | | | | | | (HCC) | | | | | | | (F31.9) | | | | | | | Procedures | | | | | | | [facility] | | | | | | | COLONOSCOPY | | | | | | | FLX DX | | | | | | | W/COLLJ SPEC | | | | | | | WHEN PFRMD | | | | | | | [facility] | | | | | | | COLONOSCOPY | | | | | | | W/BIOPSY | | | | | | | SINGLE/MULTI | | | | | | | PLE [facility] | | | | | | | COLSC FLX | | | | | | | W/RMVL OF | | | | | | | TUMOR POLYP | | | | | | | LESION SNARE | | | | | | | TQ [facility] | | | | | | | ANESTH,INTES | | | | | | | EVELINA,SCOPE,L | | | | | | | OW | | | | | | | COLONOSCOPY | | | +--------+--------+ + + + + Encounter Details +--------+ + + + + | Date | Type | Department | Care Team | Description | +--------+ + + + + | 06/01/ | Hospital | [facility] | Alex Burnett | Abdominal pain, | | 2016 | Encounter | [facility] | MD Kai [address] | epigastric; | | | | [address] | [address] [place] | Diarrhea, | | | | [place], [place] | [place] [address] | unspecified type | | | | [address] | [phone] | | | | | [phone] | | | +--------+ + + + [...] + + + documented in this encounter Medications at Time of Discharge [...] | | 0 | | | | YIAB-Nwgnjosm-Yzygrd | as needed (pain). | | | [...] mg by mouth | | 0 | //20 | | | (NEURONTIN) 300 mg | [...] | + +--------+ + + + | COLONOSCOPY | | 06/01/2017 | Elevated | | | | | 11:07 AM | cholesterol with | | | | | PDT | elevated | | | | | | triglycerides | | | | | | (E78.2), Obesity, | | | | | | morbid, BMI | | | | | | 40.0-49.9 (HCC) | | | | | | (E66.01), Abdominal | | | | | | pain, epigastric | | | | | | (R10.13), Diarrhea, | | | | | | unspecified type | | | | | | (R19.7), | | | | | | Benzodiazepine dep | | | | | | (F13.20) Bipolar | | | | | | affective disorder, | | | | | | remission status | | | | | | unspecified ([facility]) | | | | | | (F31.9) | | + +--------+ + + + | COLONOSCOPY | Routin | 06/01/2017 | | Results for this | | | e | 10:59 AM | | procedure are in the | | | | PDT | | results section. | + +--------+ + + + | SURGICAL PATHOLOGY | Routin | 06/01/2017 | | Results for this | | EXAM | e | 12:00 AM | | procedure are in the | | | | PDT | | results section. | + +--------+ + + + documented in this encounter Results COLONOSCOPY (06/01/2017 10:59 AM PDT) + + | Specimen | + + | | + + + + ---+ | Narrative | Performed At | + + ---+ | | [facility] | | GastroenterologyPatient Name: Mendoza Davidsoncedsterling Date: 06/01/2017 | [facility] | | 10:59 AMMRN: [id number] #: [id number] of : | | | 1970Admit Type: AmbulatoryAge: 46Room: [facility] 02Gender: FemaleNote | | | Status: FinalizedAttending MD: ALEX BURNETT MDProcedure: | | | ColonoscopyIndications: Chronic diarrhea, | | | DiarrheaProviders: ALEX BURNETT MD, Ronda Brizuela RN, | | | Patel Morejon CMA, Milind Bejarano, | | | MD (Anesthesia Staff)Referring MD: FAISAL Lozano | | | (Referring MD)Medicines: Monitored Anesthesia | | | CareComplications: No immediate complications.Procedure: | | | Pre-Anesthesia Assessment: - Pre-Anesthesia Assessment: - | | | Prior to the procedure, a History and Physical was performed, and | | | patient medications and allergies were reviewed. The patient is | | | competent. The risks and benefits of the procedure and the | | | sedation options and risks were discussed with the patient. All | | | questions were answered and informed consent was obtained. | | | Patient identification and proposed procedure were verified by | | | the physician, the nurse and the anesthesiologist in the | | | pre-procedure area in the procedure room. Mental Status | | | Examination: alert and oriented. Airway Examination: Mallampati | | | Class II (the uvula but not tonsillar pillars visualized). | | | Respiratory Examination: clear to auscultation. CV Examination: | | | normal. Prophylactic Antibiotics: The patient does not require | | | prophylactic antibiotics. Prior Anticoagulants: The patient | | | has taken no previous anticoagulant or antiplatelet agents. ASA | | | Grade Assessment: III - A patient with severe systemic | | | disease. After reviewing the risks and benefits, the patient | | | was deemed in satisfactory condition to undergo the procedure. The | | | anesthesia plan was to use monitored anesthesia care (MAC). | | | Immediately prior to administration of medications, the patient | | | was re-assessed for adequacy to receive sedatives. The heart | | | rate, respiratory rate, oxygen saturations, blood pressure, | | | adequacy of pulmonary ventilation, and response to care were | | | monitored throughout the procedure. The physical status of the | | | patient was re-assessed after the procedure. After I obtained | | | informed consent, the scope was passed under direct vision. | | | Throughout the procedure, the patient's blood pressure, pulse, | | | and oxygen saturations were monitored continuously. The Colonoscope | | | was introduced through the anus and advanced to the cecum, | | | identified by appendiceal orifice and ileocecal valve. The | | | colonoscopy was performed without difficulty. The patient | | | tolerated the procedure well. The quality of the bowel | | | preparation was evaluated using the BBPS ([place] Bowel | | | Preparation Scale) with scores of: Right Colon = 3, Transverse | | | Colon = 3 and Left Colon = 3 (entire mucosa seen well with no residual | | | staining, small fragments of stool or opaque liquid). The | | | total BBPS score equals 9. After I obtained informed | | | consent, the scope was passed under direct vision. Throughout | | | the procedure, the patient's blood pressure, pulse, and oxygen | | | saturations were monitored continuously. The Colonoscope was | | | introduced through the anus and advanced to the terminal | | | ileum.Findings: The perianal and digital rectal examinations | | | were normal. The terminal ileum appeared normal. The | | | descending colon, transverse colon, ascending colon and cecum | | | appeared normal. Biopsies for histology were taken with a cold forceps | | | from the right colon and left colon for evaluation of | | | microscopic colitis. A 5 mm polyp was found in the | | | sigmoid colon. The polyp was sessile. The polyp was removed | | | with a cold snare. Resection and retrieval were complete. | | | The rectum appeared normal. The retroflexed view of the distal | | | rectum and anal verge was normal and showed no anal or rectal | | | abnormalities.Impression: - The examined portion of the ileum | | | was normal. - The descending colon, transverse colon, ascending | | | colon and cecum are normal. Biopsied. - One 5 mm polyp in | | | the sigmoid colon, removed with a cold snare. Resected and | | | retrieved. - The rectum is normal. - The distal rectum and | | | anal verge are normal on retroflexion view.Recommendation: - | | | The patient will be observed post-procedure, until all discharge | | | criteria are met. - Await pathology results. - Repeat | | | colonoscopy in 5-10 years for surveillance based on pathology | | | results. - Return to nurse practitioner ([facility]) as | | | previously scheduled. - Resume regular diet today.ALEX | | | KAI BURNETT MD06/01/2017 11:45:23 AMThis report has been signed | | | electronically.Number of Addenda: 0Note Initiated On: 06/01/2017 10:59 | | | AMScope Withdrawal Time: 0 hours 14 minutes 52 seconds Total | | | Procedure Duration: 0 hours 19 minutes 47 seconds Scope In: 11:21:26 | | | AMScope Out: 11:41:13 AM [facility], [address] | | [place] [address] | | |Recommendation: | | | - The patient will be observed post-procedure, until all discharge | | | criteria are met. | | | - Await pathology results. | | | - Repeat colonoscopy in 5-10 years for surveillance based on pathology | | | results. | | | - Return to nurse practitioner ([facility]) as previously | | | scheduled. | | | - Resume regular diet today. | | |ALEX BURNETT MD | | |06/01/2017 11:45:23 AM | | |This report has been signed electronically. | | |Number of Addenda: 0 | | |Note Initiated On: 06/01/2017 10:59 AM | | |Scope Withdrawal Time: 0 hours 14 minutes 52 seconds | | |Total Procedure Duration: 0 hours 19 minutes 47 seconds | | |Scope In: 11:21:26 AM | | |Scope Out: 11:41:13 AM | | | [facility], [address] [place], [place] | | | [address] | | + + ---+ + +---------+ + + | Performing | Address | City/State/Zipcode | Phone Number | | Organization | | | | + +---------+ + + | [facility] | | | | + +---------+ + + Surgical Pathology Exam (06/01/2017 12:00 AM PDT) + + | Specimen | + + | | + + + + + | Narrative | Performed At | + + + | SPECIMEN(S): A RIGHT COLON BIOPSY SPECIMEN(S): B LEFT COLON BIOPSY | [facility] | | SPECIMEN(S): C RECTAL POLYP SPECIMEN SOURCE: A. RIGHT COLON BIOPSY | [facility] | | B. LEFT COLON BIOPSY C. RECTAL POLYP CLINICAL HISTORY: E78.2 | | | (mixed hyperlipidemia), E66.01 (morbid [severe] obesity due to excess | | | calories), R10.13 (epigastric pain), R19.7 (diarrhea, unspecified), | | | F13.20 (Sedative, hypnotic or anxiolytic dependence, uncomplicated), | | | F31.9 (bipolar disorder, unspecified) MICROSCOPIC DESCRIPTION: | | | Histologic sections of all submitted blocks are examined by light | | | microscopy. These findings, together with the gross examination, | | | support the pathologic diagnosis. FINAL PATHOLOGIC DIAGNOSIS: A. | | | Right colon biopsies: - Multiple fragments of benign colonic with | | | mildly increased crypt branching. - Negative for increased | | | inflammation, basal layer thickening, lamina propria hyalinization | | | (ischemic change), lymphocytosis, plasmacytosis, eosinophilia, | | | granuloma formation, dysplasia and malignancy. - Negative for | | | histological features of microscopic colitis. B. Left colon, biopsies | | | : - Multiple fragments of benign colonic mucosa with no | | | histopathological changes. - Negative for increased inflammation, | | | crypt architectural distortion, basal layer thickening, lamina propria | | | hyalinization (ischemic change), lymphocytosis, plasmacytosis, | | | eosinophilia, granuloma formation, dysplasia and malignancy. - | | | Negative for histologic features of microscopic colitis. C. Rectal | | | polyp, biopsy: - Tubular adenoma. - Negative for high grade | | | dysplasia and malignancy. COMMENT: Crypt branching indicates areas | | | of prior healing (re-epithelialization). No increased inflammation is | | | identified in any of these biopsies. ROMA:[place] GROSS DESCRIPTION: | | | Received in three parts. A. Received in formalin labeled "Tawnia | | | Bakari" and "right colon bx" on the requisition are five pink-kruse | | | tissue fragments measuring from 0.25-0.4 cm, submitted, all in (A1). | | | B. Received in formalin labeled "Tawnia Bakari" and "left colon bx" on | | | the requisition are five pink-kruse tissue fragments measuring from | | | 0.3-0.5 cm, submitted, all in (B1). C. Received in formalin labeled | | | "Tawnia Bakari" and "rectal polyp" on the requisition is a 0.6 x 0.4 x | | | 0.35 cm pink-kruse tissue fragment which is bisected and submitted, all | | | in (C1). ka:IRINA:fortino PERFORMING LABORATORY: Tissue processing and | | | slide preparation were performed by [facility], [address], [place] [address] (Garment Manufacturer: Shayne Angel, | | | [employer] CLIA#: [id number]). Professional interpretation was performed | | | by [facility], [address], [place], [place] | | | [address] (Garment Manufacturer: Shayne Angel M.D.; CLIA#: [id number]). | | | Diagnostician: Jhonatan Cervantes MD Pathologist Electronically | | | Signed 06/02/2017 | | + + + + +---------+ + + | Performing | Address | City/State/Zipcode | Phone Number | | Organization | | | | + +---------+ + + | [facility] | | | | | [facility] | | | | + +---------+ + + documented in this encounter Visit Diagnoses + + | Diagnosis | + + | Abdominal pain, epigastric | + + | Diarrhea, unspecified type | + + documented in this encounter Administered Medications + +--------+---------+------+------+------+ | Medication Order | MAR | Action | Dose | Rate | Site | | | Action | Date | | | | + +--------+---------+------+------+------+ + +---+ | albuterol 2.5 mg/3 mL nebulizer | | | solution 2.5 mg 2.5 mg, | | | Nebulization, ONCE PRN, Wheezing, | | | Starting Wed06/01/17 at 1000, | | | For 1 dose, Notify anesthesia if | | | patient is wheezing and does not | | | have a history of asthma or COPD | | | or current smoking., | | | Recovery/Phase I | | + +---+ | | | + +---+ + +---------+ +--------+-------+--------+ | lactated ringers (LR) infusion | New Bag | 06/01/20 | 1,000 | 100 | Right | | at 100 mL/hr, Intravenous, | | 17 10:47 | mLs | mL/hr | Arm | | CONTINUOUS, Starting Wed06/01/17 | | AM PDT | | | | | at 1015, Pre-op | | | | | | + +---------+ +--------+-------+--------+ + +---+ | | | + +---+ | ondansetron (ZOFRAN) injection | | | 4 mg 4 mg, Intravenous, ONCE | | | PRN, Nausea, Vomiting, Starting | | | 06/01/17 at 1147, For 1 dose, | | | Post-op/Phase II | | + +---+ | | | + +---+ | ondansetron (ZOFRAN) injection | | | 4 mg 4 mg, Intravenous, ONCE | | | PRN, Nausea, Starting Tue | | | 06/01/17 at 1000, For 1 dose, | | | Recovery/Phase I | | + +---+ | | | + +---+ documented in this encounter
--- OUTSIDE RECORDS SUMMARY | ~2019-08-09 | XMS | Encounter Summary ---
Demographics + + + | Address | [address] | | | [place] [address] | + + + | Home Phone | | + + + | Preferred Language | Unknown | + + + | Marital Status | | + + + | Congregation Affiliation | LDS | + + + [...] Team Providers + +------+ + | Care Maitre D' Name | Role | Phone | + +------+ + | Ashwini Ochoa NP | PCP | | + +------+ + Encounter Details +--------+ + + + + | Date | Type | Department | Care Team | Description | +--------+ + + + + | 06/07/ | Document-Sc | Health Information | Unknown . | | | 2013 | anned | Services 6989 | | | | | | Bill Dyson Misha | | | | | | Mailcode: OP17A | | | | | | [facility] | | | | | | [place], [place] | | | | | | [address] | | | | | | [phone] | | | +--------+ + + + [...]
--- OUTSIDE RECORDS SUMMARY | ~2019-08-09 | XMS | Encounter Summary ---
Demographics + + + | Address | [address] | | | [place] [address] | + + + | Home Phone | | + + + | Preferred Language | Unknown | + + + | Marital Status | | + + + | Religion Affiliation | 1027 | + + + | Race | Unknown | + + + | Ethnic Group | Unknown | + + + Author + + + | Author | [facility] | | | and [place] | + + + | Organization | [facility] | | | and [...] Team Providers + +------+ + | Care Baggage Porter Name | Role | Phone | + [...] Provider Unknown | | | | | [place] | | | | | | [address] | (Fax) | | | | | [phone] | | | +--------+ + + + [...]
--- OUTSIDE RECORDS SUMMARY | ~2019-08-09 | XMS | Clinical Summary ---
Demographics + + + | Address | [address] | | | [place] [address] | + + + | Home Phone | | + + + | Preferred Language | Unknown | + + + | Marital Status | | + + + | Congregational Affiliation | Unknown | + + + | Race | Unknown | + + + | Ethnic Group | Unknown | + + + Author + + + | Author | [facility] (Historical as of | | | 03-18-19) | + + + | Organization | [facility] (Historical as of | | | 03-18-19) [...] [place] | | | | | [address] | | + + + + + Care Team Providers + +------+ + | Care Billposter Name | Role | Phone | + [...] | 0/20 | | e | | [address] UN[address] capsule | | | | 14 [...] +------+-------+ + | PREMERA | PREMER | [id number] | | | [address] [address] | | | A BLUE | 1 | | | [place] | | | CARD | | | | [address] | +---------+--------+ +------+-------+ + + +--------+ +--------+ [...] | [place] | | | [address] | [phone] | + +--------+ +--------+ + +"
--- OUTSIDE RECORDS SUMMARY | ~2019-08-09 | XMS | Encounter Summary ---
Demographics + + + | Address | [address] | | | [place] [address] | + + + | Home Phone | | + + + | Preferred Language | Unknown | + + + | Marital Status | | + + + | Sabianism Affiliation | LDS | + + + | Race | White | + + + | Ethnic Group | Not or | + + + Author + + + | Author | [facility] | + + + | Organization | [facility] | + + + | Address [...] Team Providers + +------+ + | Care Planer Setter Name | Role | Phone | + +------+ + | Ashwini Ochoa NP | PCP | | + +------+ + Encounter Details +--------+ + + + + | Date | Type | Department | Care Team | Description | +--------+ + + + + | 10/18/ | Adult Specialist | Neurosurgery at | Tali Jackson, | 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
--- OUTSIDE RECORDS SUMMARY | ~2019-08-09 | XMS | Encounter Summary ---
Demographics + + + | Address | [address] | | | [place] [address] | + + + | Home Phone | | + + + | Preferred Language | Unknown | + + + | Marital Status | | + + + | Cheondoism Affiliation | 1027 | + + + | Race | Unknown | + + + | Ethnic Group | Unknown | + + + Author + + + | Author | [facility] | | | and [place] | + + + | Organization | [facility] | | [...] Team Providers + +------+ + | Care Phlebotomy Coordinator Name | Role | Phone | + +------+ + | Ronda Wade MD | PCP | | + +------+ + Encounter Details +--------+ + + + + | Date | Type | Department | Care Team | Description | +--------+ + + + + | 05/19/ | Episode | [facility] | Xean [facility] | | | 2017 | Changes | GASTROENTEROLOGY | EDNA Cano | | | | | [address] [place] | | | | | | [address] [place] | | | | | | [address] | | | | | | [phone] | | | +--------+ + + + [...]
--- OUTSIDE RECORDS SUMMARY | ~2019-08-09 | XMS | Encounter Summary ---
Demographics + + + | Address | [address] | | | [place] [address] | + + + | Home Phone | | + + + | Preferred Language | Unknown | + + + | Marital Status | | + + + | Orthodoxy Affiliation | 1027 | + + + | Race | Unknown | + + + | Ethnic Group | Unknown | + + + Author + + + | Author | [facility] | | | and [place] | + + + | Organization | [facility] | | | [...] Team Providers + +------+ + | Care Supervisor Toy Assembly Name | Role | Phone | + [...] [place] | | | | | [address] | [address] | | | | | [phone] | [phone] | | | | | | | [...] +--------+ + + + | EXTERNAL LAB: [facility] | Routin | 04/28/2014 | | Results for this | | | e | 4:42 AM | | procedure are in the | | | | PDT | | results section. | + +--------+ + + + documented in this encounter Results External Lab: [facility] (04/28/2014 4:42 AM PDT) + + + + + + | Component | Value | Ref Range | Performed | Pathologist | | | | | At | Signature | + + + + + + | WBC | 8.3 | 3.8 - 11.0 K/uL | EXTERNAL | | | | | | LAB | | + + + + + + | RED CELL | 3.31 (L) | 3.70 - 5.10 | EXTERNAL | | | COUNT | | M/uL | LAB | | + + + + + + | Hgb | 9.0 (L) | 11.3 - 15.5 | EXTERNAL | | | | | g/dL | LAB | | + + + + + + | Hematocrit, | 28.2 (L) | 34.0 - 46.0 % | EXTERNAL | | | POC | | | LAB | | + + + + + + | MCV | 85.1 | 80.0 - 100.0 fl | EXTERNAL | | | | | | LAB | | + + + + + + | MCH | 27.0 | 27.0 - 34.0 pg | EXTERNAL | | | | | | LAB | | + + + + + + | MCHC | 31.7 (L) | 32.0 - 35.5 | EXTERNAL | | | | | g/dL | LAB | | + + + + + + | RDW-CV | 51.6 | 37 - 53 fl | EXTERNAL | | | | | | LAB | | + + + + + + | Platelet | 352 | 150 - 400 K/uL | EXTERNAL | | | Count | | | LAB | | | Plasma | | | | | + + + + + + | MPV | 7.6 | fl | EXTERNAL | | | | | | LAB | | + + + + + + | Differentia | MANUAL | | EXTERNAL | | | l Type | | | LAB | | + + + + + + | Segmented | 72 | % | EXTERNAL | | | Neutrophils | | | LAB | | | Manual | | | | | + + + + + + | % Bands | 1 | % | EXTERNAL | | | | | | LAB | | + + + + + + | % | 1 | % | EXTERNAL | | | Metamyelocy | | | LAB | | | curly | | | | | + + + + + + | Lymphocytes | 10 | % | EXTERNAL | | | Manual | | | LAB | | + + + + + + | Monocytes | 5 | % | EXTERNAL | | | Manual | | | LAB | | + + + + + + | Eosinophils | 11 | % | EXTERNAL | | | Manual | | | LAB | | + + + + + + | Absolute | 6.0 | 1.9 - 7.4 K/uL | EXTERNAL | | | Neutrophils | | | LAB | | + + + + + + | Bands | 0.1 | 0 - 0.2 K/uL | EXTERNAL | | | Manual | | | LAB | | + + + + + + | Absolute | 0.1 (H) | K/uL | EXTERNAL | | | Metamyelocy | | | LAB | | | curly | | | | | + + + + + + | Absolute | 0.8 (L) | 1.0 - 3.9 K/uL | EXTERNAL | | | Lymphocytes | | | LAB | | + + + + + + | Absolute | 0.4 | 0 - 0.8 K/uL | EXTERNAL | | | Monocytes | | | LAB | | + + + + + + | Absolute | 0.9 (H) | 0 - 0.5 K/uL | EXTERNAL | | | Eosinophils | | | LAB | | + + + + + + | RBC | RBC AND PLT MORPHOLOGY | | EXTERNAL | | | Morphology | APPEAR NORMAL | | LAB | | + + + + + + | RBC | Testing performed at | | EXTERNAL | | | Morphology | [facility], [address] | | LAB | | | | [place] | | | | | | [address] | | | | + + + + + + + + | Specimen | + + | | + + + + + | Narrative | Performed At | + + + | Attending/Visit Provider: , MINNIE FERREIRA, Almaz PACE, , , , ИРИНА, | [...]
--- OUTSIDE RECORDS SUMMARY | ~2019-08-09 | XMS | Clinical Summary ---
Demographics + + + | Address | [address] | | | [place] [address] | + + + | Home Phone | | + + + | Preferred Language | Unknown | + + + | Marital Status | | + + + | Synagogue Affiliation | 1027 | + + + | Race | Unknown | + + + | Ethnic Group | Unknown | + + + Author + + + | Author | [facility] | | | and [place] | + + + | Organization | [facility] | | [...] Team Providers + +------+ + | Care Technical Implementation Lead Name | Role | Phone | + [...] 0 | | | Activ | | [facility] | as needed (pain). | | | [...] +-------+--------+ +--------+-------+---------+------+ | BCBS | BCBS | [id number] | | | | PPO | | [...] [place] | | | 1 (Home) | [phone] | + +--------+ +--------+ + + Advance Directives + + + + + | Type | Date Recorded | Patient | Explanation | | | | Bench Worker Apprentice | | + + + + + | Power of | | | | | Piano Mechanic | | | | + + + + + | Advance | 06/01/2017 | | | | Directive | 9:25 AM | | | + + + + +"
--- OUTSIDE RECORDS SUMMARY | ~2019-08-09 | XMS | Encounter Summary ---
Demographics + + + | Address | [address] | | | [place] [address] | + + + | Home Phone | | + + + | Preferred Language | Unknown | + + + | Marital Status | | + + + | Baptist Affiliation | 1027 | + + + | Race | Unknown | + + + | Ethnic Group | Unknown | + + + Author + + + | Author | [facility] | | | and [place] | + + + | Organization | [facility] | | [...] + +------+ + | Care Director Of Marketing Analytics Name | Role | Phone | + [...] Provider Unknown | | | | | [address] | [phone] | | | | | [phone] | | | +--------+ + + + [...] + + | COMPREHENSIVE | Routin | 03/25/2014 | | Results for this | | METABOLIC PANEL | e | 6:01 AM | | procedure are in the | | | | PDT | | results section. | + +--------+ + + + documented in this encounter Results Comprehensive Metabolic Panel (03/25/2014 6:01 AM PDT) + + + + + + | Component | Value | Ref Range | Performed | Pathologist | | | | | At | Signature | + + + + + + | Na | 141Comment: Testing | 135 - 143 | EXTERNAL | | | | performed at [facility] | mmol/L | LAB | | | | Health; [address]; | | | | | | [place] [address] | | | | + + + + + + | K | 4.1Comment: Testing | 3.5 - 4.9 | EXTERNAL | | | | performed at [facility] | mmol/L | LAB | | | | Health; [address]; | | | | | | [place] [address] | | | | + + + + + + | Cl | 105Comment: Testing | 99 - 109 mmol/L | EXTERNAL | | | | performed at [facility] | | LAB | | | | Health; [address]; | | | | | | [place] [address] | | | | + + + + + + | CO2 | 31Comment: Testing | 23 - 32 mmol/L | EXTERNAL | | | | performed at [facility] | | LAB | | | | Health; [address]; | | | | | | [place] [address] | | | | + + + + + + | Anion Gap | 9Comment: Testing | 5 - 20 mmol/L | EXTERNAL | | | | performed at [facility] | | LAB | | | | Health; [address]; | | | | | | [place] [address] | | | | + + + + + + | Glucose, | 91Comment: Testing | 65 - 99 mg/dL | EXTERNAL | | | Fasting | performed at [facility] | | LAB | | | | Health; [address]; | | | | | | [place] [address] | | | | + + + + + + | BUN | 14Comment: Testing | 8 - 25 mg/dL | EXTERNAL | | | | performed at [facility] | | LAB | | | | Health; [address]; | | | | | | [place] [address] | | | | + + + + + + | Creatinine | 0.8Comment: Testing | 0.50 - 1.00 | EXTERNAL | | | | performed at [facility] | mg/dL | LAB | | | | Health; [address]; | | | | | | [place] [address] | | | | + + + + + + | BUN/Creatin | 18Comment: Testing | | EXTERNAL | | | ine Ratio | performed at [facility] | | LAB | | | | Health; [address]; | | | | | | [place] [address] | | | | + + + + + + | Calcium | 9.4Comment: Testing | 8.5 - 10.2 | EXTERNAL | | | | performed at [facility] | mg/dL | LAB | | | | Health; [address]; | | | | | | [place] [address] | | | | + + + + + + | Protein, | 6.5Comment: Testing | 6.3 - 8.2 g/dL | EXTERNAL | | | Total | performed at [facility] | | LAB | | | | Health; [address]; | | | | | | [place] [address] | | | | + + + + + + | Albumin | 2.6 (L)Comment: Testing | 3.6 - 5.0 g/dL | EXTERNAL | | | | performed at [facility] | | LAB | | | | Health; [address]; | | | | | | [place] [address] | | | | + + + + + + | Globulin | 3.9Comment: Testing | 1.3 - 4.9 g/dL | EXTERNAL | | | | performed at [facility] | | LAB | | | | Health; [address]; | | | | | | [place] [address] | | | | + + + + + + | A/G Ratio | 0.7 (L)Comment: Testing | 1.0 - 2.4 | EXTERNAL | | | | performed at [facility] | | LAB | | | | Health; [address]; | | | | | | [place] [address] | | | | + + + + + + | Bilirubin | 0.2Comment: Testing | 0.1 - 1.5 mg/dL | EXTERNAL | | | Total | performed at [facility] | | LAB | | | | Health; [address]; | | | | | | [place] [address] | | | | + + + + + + | ALP, | 71Comment: Testing | 35 - 115 U/L | EXTERNAL | | | External | performed at [facility] | | LAB | | | | Health; [address]; | | | | | | [place] [address] | | | | + + + + + + | AST | 22Comment: Testing | 10 - 45 U/L | EXTERNAL | | | | performed at [facility] | | LAB | | | | Health; [address]; | | | | | | [place] [address] | | | | + + + + + + | ALT | 34Comment: Testing | 10 - 65 U/L | EXTERNAL | | | | performed at [facility] | | LAB | | | | Health; [address]; | | | | | | [place] [address] | | | | + + + + + + | Estimated | >60Comment: GFR <60: | mL/min/1.73m2 | EXTERNAL | [...] | | | | | | at [facility]; [address] | | | | | [address]; [place], [place] | | | | | | [address] | | | | + + + + + + + + | Specimen | + + | | + + + + + | Narrative | Performed At | + + + | Attending/Visit Provider: , MINNIE FERREIRA, SANJEEV R., , , , ИРИНА, | EXTERNAL LAB | | Ordering Provider: , CHINO/MARY ANN LÓPEZ DO, , , , , RESPER, | | + + + + +---------+ + + | Performing | Address | City/State/Zipcode | Phone Number | | Organization | | | | + +---------+ + + | EXTERNAL LAB | | | | + +---------+ + + documented in this encounter Visit Diagnoses Not on filedocumented in this encounter"
--- OUTSIDE RECORDS SUMMARY | ~2019-08-09 | XMS | Encounter Summary ---
Demographics + + + | Address | [address] | | | [place] [address] | + + + | Home Phone [...] Team Providers + +------+ + | Care Bail Bondsman Name | Role | Phone | + [...] 10/24/ | Anesthesia | 6A Intra Op 3181 | Marco A Bean, | | | 2015 | Event | [address] | [address] | | | | | [facility] | [address] | | | | | Hospital Admitting | [place], [place] | | | | | Desk Located on the | [address] | | | | | 9th floor | [phone] | | | | | [place], [place] | | | | | | [address] | | | +--------+ + + + [...] | No; 20g; left, radial | [place] | Erna Wade RN | | Arteri [...] 1:40 | | | | | Starting 10/24/14 at 1340, | | PM PDT | | | | | Until 10/24/14 at 1813 | | | | [...] % IV INTRAPROCEDURE | given by | 03/25/20 | | | | | CONTINUOUS PRN, [...]
--- OUTSIDE RECORDS SUMMARY | ~2019-08-09 | XMS | Encounter Summary ---
Demographics + + + | Address | [address] | | | [place] [address] | + + + | Home Phone | | + + + | Preferred Language | Unknown | + + + | Marital Status | | + + + | Confucianism Affiliation | LDS | + + + | Race | White | + + + | Ethnic Group | Not or | + + + Author + + + | Author | [facility] | + + + | Organization | [facility] | + + + | Address [...] Team Providers + +------+ + | Care Drier Feeder Name | Role | Phone | + [...] | | | | | [place], | | | | | | [place] [address] | | | +--------+--------+ + + + [...]
--- OUTSIDE RECORDS SUMMARY | ~2019-08-09 | XMS | Encounter Summary ---
Demographics + + + | Address | [address] | | | [place] [address] | + + + | Home Phone | | + + + | Preferred Language | Unknown | + + + | Marital Status | | + + + | Denominational Affiliation | LDS | + + + [...] Team Providers + +------+ + | Care Collections Rep Name | Role | Phone | + +------+ + | Ashwini Ochoa NP | PCP | | + +------+ + Encounter Details +--------+ + + + + | Date | Type | Department | Care Team | Description | +--------+ + + + + | 06/07/ | Document-Sc | Health Information | Unknown . | | | 2013 | anned | Services 5[address] | | | | | | [address] | | | | | | Mailcode: [id number] | | | | | | [facility] | | | | | | [place], [place] | | | | | | [address] | | | | | | [phone] | | | +--------+ + + + [...]
--- OUTSIDE RECORDS SUMMARY | ~2019-08-09 | XMS | Encounter Summary ---
Demographics + + + | Address | [address] | | | [place] [address] | + + + | Home Phone | | + + + | Preferred Language | Unknown | + + + | Marital Status | | + + + | Mandaen Affiliation | 1027 | + + + [...] Team Providers + +------+ + | Care Kennel Staff Member Name | Role | Phone | + +------+ + PCP | Unavailable | + +------+ + Encounter Details +--------+ + + + + | Date | Type | Department | Care Team | Description | +--------+ + + + + | 05/04/ | Hospital | [facility] | Eloisa Marrero MD | | | 1994 | Encounter | [facility] | [address] | | | | | GENERIC OP CONV DEPT | [place] [address] | | | | | [address] | [phone] | | | | | [place], [place] | | | | | | [address] | | | | | | [phone] | | | +--------+ + + + [...]
--- OUTSIDE RECORDS SUMMARY | ~2019-08-09 | XMS | Encounter Summary ---
Demographics + + + | Address | [address] | | | [place] [address] | + + + | Home Phone | | + + + | Preferred Language | Unknown | + + + | Marital Status | | + + + | Zoroastrian Affiliation | 1027 | + + + | Race | Unknown | + + + | Ethnic Group | Unknown | + + + Author + + + | Author | [facility] | | | and [place] | + + + | Organization | [facility] | | | [...] Team Providers + +------+ + | Care Data Warehousing Specialist Name | Role | Phone | + +------+ + PCP | Unavailable | + +------+ + Encounter Details +--------+ + + + + | Date | Type | Department | Care Team | Description | +--------+ + + + + | 01/06/ | Hospital | [facility] | Handy Anderson P, | | | 1993 | Encounter | [facility] | DO [address] | | | | | GENERIC OP CONV DEPT | [address] [place], [place] | | | | | [address] | [id number] | | | | | [place], [place] | | | | | | [address] | | | | | | [phone] | | | +--------+ + + + [...]
--- OUTSIDE RECORDS SUMMARY | ~2019-08-09 | XMS | Encounter Summary ---
Demographics + + + | Address | [address] | | | [place] [address] | + + + | Home Phone | | + + + | Preferred Language | Unknown | + + + | Marital Status | | + + + | Spiritism Affiliation | 1027 | + + + | Race | Unknown | + + + | Ethnic Group | Unknown | + + + Author + + + | Author | [facility] | | | and [place] | + + + | Organization | [facility] | | [...] Team Providers + +------+ + | Care Plugger Name | Role | Phone | + +------+ + PCP | Unavailable | + +------+ + Encounter Details +--------+ + + + + | Date | Type | Department | Care Team | Description | +--------+ + + + + | 12/25/ | Hospital | [facility] | John Doyle | | | 2007 | Encounter | MED CTR SLEEP | MD [place] | | | | | CENTER [address] | [place] [facility] | | | | | [place] | [place] [address] | | | | | [address] | [phone] | | | | | [phone] | | | +--------+ + + + [...]
--- OUTSIDE RECORDS SUMMARY | ~2019-08-09 | XMS | Encounter Summary ---
Demographics + + + | Address | [address] | | | [place] [address] | + + + | Home Phone | | + + + | Preferred Language | Unknown | + + + | Marital Status | | + + + | Caodaism Affiliation | 1027 | + + + | Race | Unknown | + + + | Ethnic Group | Unknown | + + + Author + + + | Author | [facility] | | | and [place] | + + + | Organization | [facility] | | | [...] Team Providers + +------+ + | Care Beauty Operator Apprentice Name | Role | Phone | [...] Provider Unknown | | | | | [address] | [phone] | | | | | [phone] | | | +--------+ + + + [...] | + +--------+ + + + | SEDIMENTATION RATE, | Routin | 03/26/2014 | | Results for this | | AUTOMATED | e | 6:06 AM | | procedure are in the | | | | PDT | | results section. | + +--------+ + + + documented in this encounter Results Sedimentation rate, automated (03/26/2014 6:06 AM PDT) + + + + + + | Component | Value | Ref Range | Performed | Pathologist | | | | | At | Signature | + + + + + + | Sed Rate | 79 (H)Comment: Testing | 0 - 20 mm/Hr | EXTERNAL | | | | performed at [facility] | | LAB | | | | Health; [address]; | | | | | | [place] [address] | | | | + + + [...]
--- OUTSIDE RECORDS SUMMARY | ~2019-08-09 | XMS | Encounter Summary ---
Demographics + + + | Address | [address] | | | [place] [address] | + + + | Home Phone | | + + + | Preferred Language | Unknown | + + + | Marital Status | | + + + | Anglican Affiliation | LDS | + + + | Race | White | + + + | Ethnic Group | Not or | + + + Author + + + | Author | [facility] | + + + | Organization | [facility] | + + + | Address [...] Team Providers + +------+ + | Care Knuckler Name | Role | Phone | + +------+ + | Ashwini Ochoa NP | PCP | | + +------+ + Reason for Visit + + + | Reason | Comments | + + + | Returning Phone Call | | + + + Encounter Details +--------+ + + + + | Date | Type | Department | Care Team | Description | +--------+ + + + + | 10/02/ | Telephone | Neurosurgery at | Bart Graham MD | Returning Phone Call | | 2017 | | [facility] [address] | [address] [place] | | | | | [address] Mailcode: CH[address]N | [place], [place] | | | | | [facility] | [address] | | | | | and [place], | [phone] | | | | | [facility] | | | | | | [place], [place] | | | | | | [address] | | | | | | [phone] | | | +--------+ + + + [...]
--- OUTSIDE RECORDS SUMMARY | ~2019-08-09 | XMS | Encounter Summary ---
Demographics + + + | Address | [address] | | | [place] [address] | + + + | Home Phone | | + + + | Preferred Language | Unknown | + + + | Marital Status | | + + + | Anabaptism Affiliation | 1027 | + + + | Race | Unknown | + + + | Ethnic Group | Unknown | + + + Author + + + | Author | [facility] | | | and [place] | + + + | Organization | [facility] | | | [...] Team Providers + +------+ + | Care Audio Specialist Name | Role | Phone | [...] [place] | | | | | [address] | [address] | | | | | [phone] | [phone] | | | | | | | [...] | EXTERNAL LAB: [facility] | Routin | 04/27/2014 | | Results for this | | | e | 5:00 AM | | procedure are in the | | | | PDT | | results section. | + +--------+ + + + documented in this encounter Results External Lab: [facility] (04/27/2014 5:00 AM PDT) + + + + + + | Component | Value | Ref Range | Performed | Pathologist | | | | | At | Signature | + + + + + + | WBC | 12.7 (H) | 3.8 - 11.0 K/uL | EXTERNAL | | | | | | LAB | | + + + + + + | RED CELL | 3.50 (L) | 3.70 - 5.10 | EXTERNAL | | | COUNT | | M/uL | LAB | | + + + + + + | Hgb | 9.1 (L) | 11.3 - 15.5 | EXTERNAL | | | | | g/dL | LAB | | + + + + + + | Hematocrit, | 30.0 (L) | 34.0 - 46.0 % | EXTERNAL | | | POC | | | LAB | | + + + + + + | MCV | 86.0 | 80.0 - 100.0 fl | EXTERNAL | | | | | | LAB | | + + + + + + | MCH | 26.1 (L) | 27.0 - 34.0 pg | EXTERNAL | | | | | | LAB | | + + + + + + | MCHC | 30.4 (L) | 32.0 - 35.5 | EXTERNAL | | | | | g/dL | LAB | | + + + + + + | RDW-CV | 51.2 | 37 - 53 fl | EXTERNAL | | | | | | LAB | | + + + + + + | Platelet | 401 (H) | 150 - 400 K/uL | EXTERNAL | | | Count | | | LAB | | | Plasma | | | | | + + + + + + | MPV | 7.5 | fl | EXTERNAL | | | | | | LAB | | + + + + + + | Differentia | AUTOMATED | | EXTERNAL | | | l Type | | | LAB | | + + + + + + | % Segmented | 77.6 | % | EXTERNAL | | | | | | LAB | | | Neutrophils | | | | | + + + + + + | % | 10.9 | % | EXTERNAL | | | Lymphocytes | | | LAB | | + + + + + + | % Monocytes | 6.5 | % | EXTERNAL | | | | | | LAB | | + + + + + + | % | 4.5 | % | EXTERNAL | | | Eosinophils | | | LAB | | + + + + + + | % Basophils | 0.5 | % | EXTERNAL | | | | | | LAB | | + + + + + + | Absolute | 9.9 (H) | 1.9 - 7.4 K/uL | EXTERNAL | | | Segmented | | | LAB | | | Neutrophils | | | | | + + + + + + | Absolute | 1.4 | 1.0 - 3.9 K/uL | EXTERNAL | | | Lymphocytes | | | LAB | | + + + + + + | Absolute | 0.8 | 0 - 0.8 K/uL | EXTERNAL | | | Monocytes | | | LAB | | + + + + + + | Absolute | 0.6 (H) | 0 - 0.5 K/uL | EXTERNAL | | | Eosinophils | | | LAB | | + + + + + + | Absolute | 0.1Comment: Testing | 0 - 0.1 K/uL | EXTERNAL | | | Basophils | performed at [facility], [address] | | LAB | | | | [address], | | | | | | [place] [address] | | | | + + + [...]
--- OUTSIDE RECORDS SUMMARY | ~2019-08-09 | XMS | Encounter Summary ---
Demographics + + + | Address | [address] | | | [place] [address] | + + + | Home Phone | | + + + | Preferred Language | Unknown | + + + | Marital Status | | + + + | Adventism Affiliation | 1027 | + + + | Race | Unknown | + + + | Ethnic Group | Unknown | + + + Author + + + | Author | [facility] | | | and [place] | + + + | Organization | [facility] | | | [...] Team Providers + +------+ + | Care Training Program Manager Name | Role | Phone | + +------+ + PCP | Unavailable | + +------+ + Encounter Details +--------+ + + + + | Date | Type | Department | Care Team | Description | +--------+ + + + + | 05/07/ | Hospital | [facility] | Handy Anderson P, | | | 1993 | Encounter | [facility] | DO [address] | | | | | GENERIC OP CONV DEPT | [address] [place], [place] | | | | | [address] | [id number] | | | | | [place], [place] | | | | | | [address] | | | | | | [phone] | | | +--------+ + + + [...]
--- OUTSIDE RECORDS SUMMARY | ~2019-08-09 | XMS | Encounter Summary ---
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 [place] | | | | | | [address] | | | | | | [phone] | | | +--------+ + + + [...]
--- OUTSIDE RECORDS SUMMARY | ~2019-08-09 | XMS | Encounter Summary ---
Demographics + + + | Address | [address] | | | [place] [address] | + + + | Home Phone | | + + + | Preferred Language | Unknown | + + + | Marital Status | | + + + | Taoism Affiliation | 1027 | + + + [...] Team Providers + +------+ + | Care Motorcycle Fabricator Name | Role | Phone | + +------+ + PCP | Unavailable | + +------+ + Encounter Details +--------+ + + + + | Date | Type | Department | Care Team | Description | +--------+ + + + + | 09/22/ | Hospital | [facility] | Handy Anderson P, | | | 1993 | Encounter | [facility] | DO [address] | | | | | GENERIC OP CONV DEPT | RD [place], [place] | | | | | [address] | [id number] | | | | | [place], [place] | | | | | | [address] | | | | | | [phone] | | | +--------+ + + + [...]
--- OUTSIDE RECORDS SUMMARY | ~2019-08-09 | XMS | Encounter Summary ---
Demographics + + + | Address | [address] | | | [place] [address] | + + + | Home Phone | | + + + | Preferred Language | Unknown | + + + | Marital Status | | + + + | Jehovah'S Witness Affiliation | 1027 | + + + | Race | Unknown | + + + | Ethnic Group | Unknown | + + + Author + + + | Author | [facility] | | | and [place] | + + + | Organization | [facility] | | | [...] Team Providers + +------+ + | Care Rivet Hole Machine Operator Name | Role | Phone | + +------+ + | Ronda Wade MD | PCP | | + +------+ + Encounter Details +--------+ + + + + | Date | Type | Department | Care Team | Description | +--------+ + + + + | 05/19/ | Episode | [facility] | [place] | | | 2017 | Changes | GASTROENTEROLOGY | [place] | | | | | [address] [place] | | | | | | [address] [place] | | | | | | [address] | | | | | | [phone] | | | +--------+ + + + [...]
--- OUTSIDE RECORDS SUMMARY | ~2019-08-09 | XMS | Encounter Summary ---
Demographics + + + | Address | [address] | | | [place] [address] | + + + | Home Phone | | + + + | Preferred Language | Unknown | + + + | Marital Status | | + + + | Restorationism Affiliation | 1027 | + + + | Race | Unknown | + + + | Ethnic Group | Unknown | + + + Author + + + | Author | [facility] | | | and [place] | + + + | Organization | [facility] | | | and [...] Team Providers + +------+ + | Care Disease Management Nurse Name | Role | Phone | [...] [place] | | | | | [address] | [address] | | | | | [phone] | [phone] | | | | | | | [...] | + +--------+ + + + | VANCOMYCIN, TROUGH | Routin | 03/26/2014 | | Results for this | | | e | 8:25 AM | | procedure are in the | | | | PDT | | results section. | + +--------+ + + + documented in this encounter Results Vancomycin, Trough (03/26/2014 8:25 AM PDT) + + + + + + | Component | Value | Ref Range | Performed | Pathologist | | | | | At | Signature | + + + + + + | Vancomycin | 16.1Comment: 15 to 20 | 10 - 20 ug/mL | EXTERNAL | | | Trough | ug/mL for meningitis, | | LAB | | | | osteomyelitis, | | | | | | endocarditis, sepsis, or | | | | | | healthcare associated | | | | | | pneumonia, or an RENY | | | | | | equal to or greater than | | | | | | 1.0 ug/mLTesting | | | | | | performed at [facility] | | | | | | [facility]; [facility]; | | | | | | [place] [address] | | | | + + + [...]
--- OUTSIDE RECORDS SUMMARY | ~2019-08-09 | XMS | Encounter Summary ---
Demographics + + + | Address | [address] | | | [place] [address] | + + + | Home Phone | | + + + | Preferred Language | Unknown | + + + | Marital Status | | + + + | Islam Affiliation | 1027 | + + + | Race | Unknown | + + + | Ethnic Group | Unknown | + + + Author + + + | Author | [facility] | | | and [place] | + + + | Organization | [facility] | | [...] Team Providers + +------+ + | Care Push Button Switch Assembler Name | Role | Phone | + +------+ + | Ronda Wade MD | PCP | | + +------+ + Encounter Details +--------+ + + + + | Date | Type | Department | Care Team | Description | +--------+ + + + + | 04/26/ | Orders Only | [facility] | Abram Friend MD | | | 2013 | | [address] | [address] | | | | | [place] | [place] | | | | | [address] | [address] | | | | | [phone] | [phone] | | | | | | | [...] | + +--------+ + + + | CULTURE, BLOOD | Routin | 04/26/2014 | | Results for this | | | e | 9:25 PM | | procedure are in the | | | | PDT | | results section. | + +--------+ + + + documented in this encounter Results Culture, Blood (04/26/2014 9:25 PM PDT) + + | Specimen | + + | | + + + + + | Narrative | Performed At | + + + | Specimen Description BLOOD SPECIAL | EXTERNAL LAB | | REQUESTS LEFT AC DRAWN BY LAB/[address] | | | Testing performed at | | | [facility]; [address] [facility]; [place] [address] CULTURE | | | NO GROWTH | | | Testing performed at [facility], [address] [facility] [address] [facility] | | | [place] [address] | | | | | + + + + +---------+ + + | Performing | Address | City/State/Zipcode | Phone Number | | Organization | | | | + +---------+ + + | EXTERNAL LAB | | | | + +---------+ + + documented in this encounter Visit Diagnoses Not on filedocumented in this encounter"
--- OUTSIDE RECORDS SUMMARY | ~2019-08-09 | XMS | Encounter Summary ---
Demographics + + + | Address | [address] | | | [place] [address] | + + + | Home Phone [...] + + + | Author | [facility] | + + + | Organization | [facility] | + + + | [...] Team Providers + +------+ + | Care Surveying Teacher Name | Role | Phone | [...] | | | | brain and | [place] | | | | | spinal cord | [address] | [address] | | | | | (HCC) | Phone: | Phone: | | | | | Procedures | [phone] | [phone] | | | | | REQUEST TO | Fax: | Fax: | | | | | SURGERY | [phone] | [phone] | | | | | STRANNER | | | | | | | [place] EXCIS | | | | | | | 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 Villeags is a 43 year old woman with [...] by me and if not recorded in eCert will be scanned into the stem using [...]
--- OUTSIDE RECORDS SUMMARY | ~2019-08-09 | XMS | Encounter Summary ---
Demographics + + + | Address | [address] | | | [place] [address] | + + + | Home Phone | | + + + | Preferred Language | Unknown | + + + | Marital Status | | + + + | Hindu Affiliation | LDS | + + + | Race | White | + + + | Ethnic Group | Not or | + + + Author + + + | Author | [facility] | + + + | Organization | [facility] | + + + | [...] Team Providers + +------+ + | Care Associate Professor Of Radiology Name | Role | Phone | + [...] FRAMELESS | | 2015 | | [facility] | [address] [facility] | STEREOTACTIC | | | | Rd [facility] | [facility] [place] | SUBOCCIPITAL | | | | Hospital Admitting | [address] | CRANIECTOMY FOR | | | | Desk Located on the | [phone] | 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 | | | | [phone] | | FS, ??? audelia), see | [...] ventricular mass, admitted [facility] on 2014 for the procedures [...] at 9:30am. We are located at the [facility], [address] [place] [address]. Address: [address] [place] [address]. Please call [phone] for questions o r concerns. 2. Follow up with your PCP to review your hospital course and medication changes. Please call to schedule this appointment. Future Appointments Date & Time Provider Department Dept Phone Center 11/09/2014 9:30 AM Bart Graham Neurosurgery at [facility] [phone] Neurosurgery Discharging Physician: JAIME HOWARD MD Attending [...] 14 | | | | bedtime. 2 lbnl=002 | | | | | | | [...] pain SILT Psychiatric: Appropriate and cooperative Assessment/Plan: Mendzoa Villegas is a 44 y.o. female with [...] issues Jaime Howard MD Neurosurgery Resident Pager #[phone] MEDICATIONS Current Facility-Administered Medications Medication acetaminophen (TYLENOL) [...] 7NSICU ATTENDING NEUROINTENSIVIST PROGRESS NOTE Team Pager: [phone] Attendin -------- EVENING NOTE -------- Date:10/25/2014 Critical [...] s/s of infection # Bipolar: Restart Wellbutrin, Shawneeland, Duloxetine, Ziprasidone, and lorazepam (prn) # Lines: CVL (subclavian), matos, PIV - d/c matos Relevant Risks: This patient is currently at risk for the following: cerebral edema, hydroc ephalus, intracerebral hemorrhage and seizure; central line associated blood stream infectio n, DVT/Pulmonary embolism, ICU delirium and UTI. I spent 30 minutes actively involved in the care and management of this patient. Sachin Ward MD [facility] DEPARTMENT: [id number] ICU NEURO Place of Service:- Inpatient Date of Service: 10/25/2014 CSN: [id number] Suggested Modifier: None Suggested CPT: TO COLD ROLLING COORDINATOR RELEVANT DATA: Last Vitals: BP 112/66 | [...] charting, and discussion with treatment decision maker. [facility] DEPARTMENT: [id number] CRITICAL CARE Place of Service: Inpatient Date of Service: 10/25/2014 CSN: [id number] Suggested Level of Care: 20342 - CRITICAL CARE, 1ST HOUR EACH DAY [...] MRI -dexamethasone 4mg q6--slow taper ordered. -medication ESCAPEMENT MAKER: Geodon 160mg qHS, tramadol 50mg q6hr prn [...] for [place] - Diet: Regular diet - [facility] bowel protocol - MIVF: Normal saline [...] ove assessment and plan. TORITO GONG, VALENTINA [facility] DEPARTMENT: [id number] ICU NEURO Place of Service:- Inpatient Date of Service: 10/25/2014 CSN: [id number] Suggested Modifier: None Suggested CPT: TO COLD ROLLING COORDINATOR Kareen Martinez MD - 2014 6:49 PM [...] - 2014 6:19 PM PDT 7NSICU ATTENDING RURAL SOCIOLOGIST DAILY PROGRESS NOTE Team Pager: [phone] Attendin Date:2014 Critical Care Attending Physician: SACHIN [...] asthma Home meds: Ziprasidone, Tramadol, Topiramate, Lorazepam, Shawneeland, Lansoprazole, Dilaudid, Celecoxib, g abapentin, duloxetine, bupropion, [...] opioids: continue gabapentin # Bipolar: Restart Wellbutrin, [place]ne[place], Duloxetine, Ziprasidone, and lorazepam (prn) # Lines: arterial line, CVL (subclavian), matos, PIV Relevant Risks: This patient is currently at risk for the following: cerebral edema, hy drocephalus, intracerebral hemorrhage and seizure; central line associated blood stream infe ction, DVT/Pulmonary embolism, ICU delirium and UTI. I spent 65 minutes actively involved in the care and management of this patient. Sachin Ward MD [facility] DEPARTMENT: [id number] ICU NEURO Place of Service:- Inpatient Date of Service: erEDICAL RECORD NUMBER [id number] CSN: [id number] Suggested Modifier: None Suggested CPT: TO COLD ROLLING COORDINATOR RELEVANT DATA: Last Vitals: BP 139/80 | [...] CHENG | [address] | [place], [place] | | | [facility] | [address] | [address] | | | TESTS | | | [...] SALLYAM | [address] | [place], [place] | | | L[facility]LIE POINT OF CARE | [address] | [address] | | | TESTS | | | [...] + + + + + | [facility] | [address] | [place] [address] | | | SERVICES, CORE | KAYLEN [...] | | | LABORATORY | | | GHANAIAN | | | SERVICES, | | | [...] the MDRD equation recommended by the | [facility] | | National Kidney Disease Education Program. [...] | + + + + + | [facility] | [address] | [place] [address] | | | GABRIELLE MIRELES | KAYLEN [...] (H) | 60 - 99 mg/dL | [facility] - | | | GLUCOSE, | | [...] SHELLEYQUAM | [address] | [place], [place] | | | [facility]ARE | [address] | [address] | | | TESTS | | | [...] CHENG | [address] | [place], [place] | | | MALINA NELSON OF BEL | [facility] | [address] | | | TESTS | | | [...] - MARQUAM | [address] | [place], [place] | | | [facility] POINT [facility] CARE | [facility] | [address] | | | TESTS | | | [...] | + + + + + | [facility] | [address] | [place] [address] | | | CHI, CORE | KAYLEN [...] | | | LABORATORY | | | GHANAIAN | | | SERVICES, | | | [...] | + + + + + | [facility] | [address] | [place] [address] | | | SERVICES, CORE | KAYLEN [...] (H) | 60 - 99 mg/dL | [facility] - | | | GLUCOSE, | | [...] CHENG | [address] | [place], [place] | | | [facility] N[facility]SON OF BEL | [address] | [address] | | | TESTS | | | [...] MARQUAM | [address] | [place], [place] | | | [facility] | [address] | [address] | | | TESTS | | | [...] MARQUAM | [address] | [place], [place] | | | [facility] | [address] | [address] | | | TESTS | | | [...] CHENG | [address] | [place], [place] | | | [facility] | [address] | [address] | | | TESTS | | | | + + + + + OPERATION RECORD (10/26/2014 9:22 AM PDT) + + | Transcriptions | + + | Bart Graham MD - 2014 10:30 PM PDT Date of Service: 2014 Attending | | Surgeon: Bart Graham MD Chlorobutadiene Scrubber Operator(s): Brady Conroy MD, | | PhD. [...] she was placed in the Bhagat head chef and flipped into | | the prone position on chest rolls. Her arms were tucked at her sides and all pressure | | points were carefully padded. We then registered the [employer] frameless stereotactic | | navigation system with [...] curette with Kerrison punches. We used a [place] dissector to | | carefully dissect the [...] the subarachnoid space. We then used a [place] | | elevator and opened the dura [...] were removed. She was removed from the [place] head chef | | and flipped into the supine [...] 2014 | | 18:04:22DT: 2014 22:30:30Job #: [id number] | + + CAPILLARY BLOOD GLUCOSE (NO [...] MARQUAM | [address] | [place], [place] | | | [facility] | [address] | [address] | | | TESTS | | | [...] CHENG | [address] | [place], [place] | | | [facility] | [address] | [address] | | | TESTS | | | [...] [facility] | [address] | [place] [address] | | | SERVICES, CORE | PARK [...] | | | LABORATORY | | | GHANAIAN | | | SERVICES, | | | [...] + + + + + | [facility] | [address] [facility] | [place] [address] | | | SERVICES, GABRIELLE | KAYLEN [...] MARQUAM | [address] | [place], [place] | | | [facility] BEL | [facility] | [address] | | | TESTS | | | [...] (H) | 60 - 99 mg/dL | [facility] - | | | GLUCOSE, | | [...] MARQUAM | [address] | [place], [place] | | | [facility] | [address] | [address] | | | TESTS | | | [...] CHENG | [address] | [place], [place] | | | [facility] | [facility] | [address] | | | TESTS | | | [...] - MARQUAM | [address] | [place], [place] | | | LESLIE POINT OF CARE | [address] | [address] | | | TESTS | | | [...] | + + + + + | [facility] | [address] | [place] [address] | | | SERVICES, SPECIAL | PARK [...] + + + + + | [facility] | [address] | [place] [address] | | | SERVICES, CORE | KAYLEN [...] | | | LABORATORY | | | GHANAIAN | | | SERVICES, | | | [...] the MDRD equation recommended by the | [facility] | | National Kidney Disease Education Program. [...] + + + + + | [facility] | [address] | [place] [address] | | | CHI, GABRIELLE | KAYLEN [...] | | | | | | contrast. [id number] | | | | | | reformatted [...] + + + | X-RAY | EXAM: [place] CHEST 1 VIEW | | | | [...] [facility] | [address] | [place] [address] | | | SERVICES, CORE | PARK [...] | | | LABORATORY | | | GHANAIAN | | | SERVICES, | | | [...] | + + + + + | [facility] | [address] [facility] | [place] [address] | | | GABRIELLE MIRELES | KAYLEN [...] + + + + + | [facility] | [address] | [place] [address] | | | SERVICES, CORE | KAYLEN [...] [facility] | [address] | [place] [address] | | | SERVICES, GABRIELLE | KAYLEN [...] | + + + + + | [facility] | [address] | [place] [address] | | | SERVICES, CORE | PARK [...] MARLIZAM | [address] | [place], [place] | | | [facility] | [address] | [address] | | | TESTS | | | [...] MARQUAM | [address] | [place], [place] | | | [facility]IE POINT OF CARE | [facility] | [address] | | | TESTS | | | [...] + + + | [facility] | [address] | [place], [place] | | | [facility] | [address] | [address] | | | TESTS | | | [...] + + + + | [facility] | [address] | [place], [place] | | | [facility] | [address] | [address] | | | TESTS | | | [...] MARLIZAM | [address] | [place], [place] | | | [facility] | [facility] | [address] | | | TESTS | | | [...] CHENG | [address] | [place], [place] | | | [facility] | [address] | [address] | | | TESTS | | | [...] SALLYAM | [address] | [place], [place] | | | [facility] | [address] | [address] | | | TESTS | | | [...] + + + | [facility] CH[facility] | [address] | [place], [place] | | | [facility] | [address] | [address] | | | TESTS | | | [...] mass | | | | | | [id number] x 12 mm in | | | [...] | | + +---------+ + + | [facility] DEPARTMENT OF | | | | | [...] [facility] | [address] | [place] [address] | | | SERVICES, | [address] [...] + + + + + | [facility] | [address] | [place] [address] | | | SERVICES, | [address] | | | | TRANSFUSION MEDICINE | | | | + + + + + INTRAOPERATIVE NEURO MONITORING (2014) + + + | Narrative | Performed At | + + + | Patient Name: Mendoza Villegas Date of : 1970 Medical | | | Record Number: [id number] Date of Test: 2014 Place of | | | Service: IP Intra Op (70) [id number] - [id number] INTRAOPERATIVE NEURO | | | MONITORING History: [...] of | | | Neurology Suggested CPT: 17508 - IOM Remote x 3 hr(s) 01595 - | | | Short Latency EP's Upper AND Lower extremities 32753 - Central Motor | | | EP's Upper AND Lower extremities 26685 - EMG Cranial Bilateral - IOM | | | 00072 - Neuromuscular Junction Test Suggested Diagnosis: 237.5 [...] | + + + + + | [facility] | [address] | [place] [address] | | | PATHOLOGY | [address] [...]
--- OUTSIDE RECORDS SUMMARY | ~2019-08-09 | XMS | Encounter Summary ---
Demographics + + + | Address | [address] | | | [place] [address] | + + + | Home Phone | | + + + | Preferred Language | Unknown | + + + | Marital Status | | + + + | Mormon Affiliation | 1027 | + + + | Race | Unknown | + + + | Ethnic Group | Unknown | + + + Author + + + | Author | [facility] | | | and [place] | + + + | Organization | [facility] | | [...] Team Providers + +------+ + | Care Tractor Trailer Technician Name | Role | Phone | [...] [place] | | | | | [address] | [address] | | | | | [phone] | [phone] | | | | | | | [...] | | | | | | at [facility], [address] | | | | | | [place], | | | | | | [place] [address] | | | | + + + [...]
--- OUTSIDE RECORDS SUMMARY | ~2019-08-09 | XMS | Encounter Summary ---
Demographics + + + | Address | [address] | | | [place] [address] | + + + | Home Phone | | + + + | Preferred Language | Unknown | + + + | Marital Status | | + + + | Nondenominational Affiliation | 1027 | + + + | Race | Unknown | + + + | Ethnic Group | Unknown | + + + Author + + + | Author | [facility] | | | and [place] | + + + | Organization | [facility] | | [...] Team Providers + +------+ + | Care Fountain Manager Name | Role | Phone | + +------+ + PCP | Unavailable | + +------+ + Encounter Details +--------+ + + + + | Date | Type | Department | Care Team | Description | +--------+ + + + + | 07/27/ | Hospital | [facility] | [facility] | | | 1994 | Encounter | [facility] | | | | | | GENERIC OP CONV DEPT | | | | | | [address] | | | | | | [place] | | | | | | [address] | | | | | | [phone] | | | +--------+ + + + [...]
--- OUTSIDE RECORDS SUMMARY | ~2019-08-09 | XMS | Encounter Summary ---
Demographics + + + | Address | [address] | | | [place] [address] | + + + | Home Phone | | + + + | Preferred Language | Unknown | + + + | Marital Status | | + + + | Catholic Affiliation | 1027 | + + + [...] Providers + +------+ + | Care Art Glass Designer Name | Role | Phone | + +------+ + PCP | Unavailable | + +------+ + Encounter Details +--------+ + + + + | Date | Type | Department | Care Team | Description | +--------+ + + + + | 09/05/ | Hospital | [facility] | Handy Anderson P, | | | 1994 | Encounter | [facility] | DO [address] | | | | | GENERIC OP CONV DEPT | [address] [place], [place] | | | | | [address] | [id number] | | | | | [place], [place] | | | | | | [address] | | | | | | [phone] | | | +--------+ + + + [...]
--- OUTSIDE RECORDS SUMMARY | ~2019-08-09 | XMS | Encounter Summary ---
Demographics + + + | Address | [address] | | | [place] [address] | + + + | Home Phone [...] + + + | Author | [facility] | + + + | Organization | [facility] | + + + | [...] Team Providers + +------+ + | Care Pharmacy Laboratory Technician Name | Role | Phone | [...] data | | 2015 | IP | [address] | [address] | completion) | | | | [address] | [place], [place] | | | | | [place], [place] | [address] | | | | | [address] | [phone] | | | | | | | [...]
--- OUTSIDE RECORDS SUMMARY | ~2019-08-09 | XMS | Encounter Summary ---
Demographics + + + | Address | [address] | | | [place] [address] | + + + | Home Phone | | + + + | Preferred Language | Unknown | + + + | Marital Status | | + + + | Faith Affiliation | LDS | + + + [...] Team Providers + +------+ + | Care Speaker Mounter Name | Role | Phone | [...] Pharmacy | | | | | | [address] | | | | | | [place], [place] | | | | | | [address] | | | | | | [phone] | | | +--------+ + + + [...]
--- OUTSIDE RECORDS SUMMARY | ~2019-08-09 | XMS | Encounter Summary ---
Demographics + + + | Address | [address] | | | [place] [address] | + + + | Home Phone [...] Team Providers + +------+ + | Care Dairy Nutrition Consultant Name | Role | Phone | [...] Rd | | | | | | [place], [place] | | | | | | [address] | | | +--------+ + + + [...]
--- OUTSIDE RECORDS SUMMARY | ~2019-08-09 | XMS | Encounter Summary ---
Demographics + + + | Address | [address] | | | [place] [address] | + + + | Home Phone | | + + + | Preferred Language | Unknown | + + + | Marital Status | | + + + | Evangelical Affiliation | 1027 | + + + [...] Team Providers + +------+ + | Care Television Technician Name | Role | Phone | + +------+ + PCP | Unavailable | + +------+ + Encounter Details +--------+ + + + + | Date | Type | Department | Care Team | Description | +--------+ + + + + | 06/16/ | Hospital | [facility] | Handy Anderson P, | | | 1993 | Encounter | [facility] | DO [address] | | | | | GENERIC OP CONV DEPT | [address] [place], [place] | | | | | [address] | [id number] | | | | | [place], [place] | | | | | | [address] | | | | | | [phone] | | | +--------+ + + + [...]
--- OUTSIDE RECORDS SUMMARY | ~2019-08-09 | XMS | Encounter Summary ---
Demographics + + + | Address | [address] | | | [place] [address] | + + + | Home Phone | | + + + | Preferred Language | Unknown | + + + | Marital Status | | + + + | Judaism Affiliation | LDS | + + + [...] Team Providers + +------+ + | Care In Home Sales Consultant Name | Role | Phone | + +------+ + | Ashwini Ochoa NP | PCP | | + +------+ + Encounter Details +--------+ + + + + | Date | Type | Department | Care Team | Description | +--------+ + + + + | 01/29/ | Document-Sc | Health Information | Unknown . | | | 2017 | anned | Services 0851 | | | | | | [address] | | | | | | Mailcode: OP17A | | | | | | [facility] | | | | | | [place], [place] | | | | | | [address] | | | | | | [phone] | | | +--------+ + + + [...]
--- OUTSIDE RECORDS SUMMARY | ~2019-08-09 | XMS | Encounter Summary ---
Demographics + + + | Address | [address] | | | [place] [address] | + + + | Home Phone | | + + + | Preferred Language | Unknown | + + + | Marital Status | | + + + | Jainism Affiliation | LDS | + + + [...] Providers + +------+ + | Care Credit Director Name | Role | Phone | [...] Request | | 2014 | | [facility] [address] | [address] | | | | | [address] Mailcode: CH8N | [place], [place] | | | | | [facility] | [address] | | | | | and [place], | [phone] | | | | | [facility] | | | | | | [place], [place] | | | | | | [address] | | | | | | [phone] | | | +--------+ + + + [...]
--- OUTSIDE RECORDS SUMMARY | ~2019-08-09 | XMS | Encounter Summary ---
Demographics + + + | Address | [address] | | | [place] [address] | + + + | Home Phone | | + + + | Preferred Language | Unknown | + + + | Marital Status | | + + + | Shinto Affiliation | 1027 | + + + | Race | Unknown | + + + | Ethnic Group | Unknown | + + + Author + + + | Author | [facility] | | | and [place] | + + + | Organization | [facility] | | [...] Team Providers + +------+ + | Care Coo Name | Role | Phone | + +------+ + PCP | Unavailable | + +------+ + Encounter Details +--------+ + + + + | Date | Type | Department | Care Team | Description | +--------+ + + + + | 05/14/ | Emergency | [facility] | Min Mcqueen | | | 1994 | | [facility] | [address] | | | | | [place] [address] | [place] [address] | | | | | [address] | [phone] | | | | | [employer], [place] | | | | | | [address] | | | | | | [phone] | | | +--------+ + + + [...]
--- OUTSIDE RECORDS SUMMARY | ~2019-08-09 | XMS | Encounter Summary ---
Demographics + + + | Address | [address] | | | [place] [address] | + + + | Home Phone | | + + + | Preferred Language | Unknown | + + + | Marital Status | | + + + | Gnosticism Affiliation | 1027 | + + + | Race | Unknown | + + + | Ethnic Group | Unknown | + + + Author + + + | Author | [facility] | | | and [place] | + + + | Organization | [facility] | | | [...] Team Providers + +------+ + | Care Councilperson Name | Role | Phone | + +------+ + PCP | Unavailable | + +------+ + Encounter Details +--------+ + + + + | Date | Type | Department | Care Team | Description | +--------+ + + + + | 10/12/ | Hospital | [facility] | Handy Anderson P, | | | 1994 | Encounter | [facility] | DO [address] | | | | | GENERIC OP CONV DEPT | [address] [place], [place] | | | | | [address] | [id number] | | | | | [place], [place] | | | | | | [address] | | | | | | [phone] | | | +--------+ + + + [...]
--- OUTSIDE RECORDS SUMMARY | ~2019-08-09 | XMS | Encounter Summary ---
Demographics + + + | Address | [address] | | | [place] [address] | + + + | Home Phone | | + + + | Preferred Language | Unknown | + + + | Marital Status | | + + + | Muslim Affiliation | 1027 | + + + | Race | Unknown | + + + | Ethnic Group | Unknown | + + + Author + + + | Author | [facility] | | | and [place] | + + + | Organization | [facility] | | [...] Team Providers + +------+ + | Care Tankage Grinder Operator Name | Role | Phone | [...] [place] | | | | | [address] | [address] | | | | | [phone] | [phone] | | | | | | | [...] + | SEDIMENTATION RATE, | Routin | 04/27/2014 | | Results for this | | AUTOMATED | e | 5:00 AM | | procedure are in the | | | | PDT | | results section. | + +--------+ + + + documented in this encounter Results Sedimentation rate, automated (04/27/2014 5:00 AM PDT) + + + + + + | Component | Value | Ref Range | Performed | Pathologist | | | | | At | Signature | + + + + + + | Sed Rate | 83 (H)Comment: Testing | 0 - 20 mm/Hr | EXTERNAL | | | | performed at [facility], [address] | | LAB | | | | [address], | | | | | | [place] [address] | | | | + + + [...]
--- OUTSIDE RECORDS SUMMARY | ~2019-08-09 | XMS | Encounter Summary ---
Demographics + + + | Address | [address] | | | [place] [address] | + + + | Home Phone | | + + + | Preferred Language | Unknown | + + + | Marital Status | | + + + | Gnosticism Affiliation | 1027 | + + + | Race | Unknown | + + + | Ethnic Group | Unknown | + + + Author + + + | Author | [facility] | | | and [place] | + + + | Organization | [facility] | | | and [...] Team Providers + +------+ + | Care C Software Developer Name | Role | Phone | + +------+ + PCP | Unavailable | + +------+ + Encounter Details +--------+ + + + + | Date | Type | Department | Care Team | Description | +--------+ + + + + | 06/10/ | Hospital | [facility] | Fiordaliza Walls | | | 1993 | Encounter | [facility] | [address] | | | | | GENERIC OP CONV DEPT | [place] [address] | | | | | [address] | [phone] | | | | | [place], [place] | | | | | | [address] | | | | | | [phone] | | | +--------+ + + + [...]
--- OUTSIDE RECORDS SUMMARY | ~2019-08-09 | XMS | Encounter Summary ---
Demographics + + + | Address | [address] | | | [place] [address] | + + + | Home Phone | | + + + | Preferred Language | Unknown | + + + | Marital Status | | + + + | Sabianism Affiliation | 1027 | + + + | Race | Unknown | + + + | Ethnic Group | Unknown | + + + Author + + + | Author | [facility] | | | and [place] | + + + | Organization | [facility] | | | [...] Team Providers + +------+ + | Care Mail Manager Name | Role | Phone | [...] [place] | | | | | [address] | [address] | | | | | [phone] | [phone] | | | | | | | [...] EXTERNAL | | | | performed at [facility] | | LAB | | | | Health; [address] [facility]; | | | | | | [place] [address] | | | | + + + [...]
--- OUTSIDE RECORDS SUMMARY | ~2019-08-09 | XMS | Encounter Summary ---
Demographics + + + | Address | [address] | | | [place] [address] | + + + | Home Phone | | + + + | Preferred Language | Unknown | + + + | Marital Status | | + + + | Jew Affiliation | 1027 | + + + | Race | Unknown | + + + | Ethnic Group | Unknown | + + + Author + + + | Author | [facility] | | | and [place] | + + + | Organization | [facility] | | | and [...] Team Providers + +------+ + | Care Inspector Packer Name | Role | Phone | + [...] | | | | | pain | [address] | [address], | | | | | Diarrhea | [address] | [address] | | | | | Abdominal | [place], | [place], | | | | | pain, | [place] [address] | [place] [address] | | | | | diarrhea | Phone: | Phone: | | | | | Procedures | [phone] | [phone] | | | | | Office Visit | Fax: | Fax: | | | | | | [phone] | [phone] | +--------+--------+ + + + + Encounter [...] | [address] [place] | [address], [address] | (Primary Dx); | | | | [address] [place], [place] | [place], [place] | Elevated cholesterol | | | | [address] | [address] | with elevated | | | | [phone] | | triglycerides; | | | | | | Obesity, morbid, BMI | | | | | | 40.0-49.9 ([facility]); | | | | | | Abdominal pain, | | | | | | epigastric; Bipolar | | | | | | affective disorder, | | | | | | remission status | | | | | | unspecified ([facility]); | | | | | | LAP-BAND [...] worse. If taking medicines: Don t take oruk-xky-xketlvy diarrhea or nausea medicines unless your healthcare [...] with soap and water and using alcohol-based crisis intervention specialist is the best way to prevent the [...] Keep uncooked meats away from cooked and lbczw-qo-lmc foods. Use a food thermometer when cooking. [...] get lower with medicine Date Last Reviewed: 08/04/201519996825-3984 [employer]. [address] [place] [address]. All [facility] reserved. This information is not intended [...] prior to diarrhea starting. She was taking [place], gabapentin, and 2 other mood stabilizers. She [...] 0 0 - 4 Final UA Specific [place], External 01/06/2017 1.019 1.005 - 1.03 Final [...] Colonoscopy; N/A 3. Obesity, morbid, BMI 40.0-49.9 ([facility]) Case request: Colonoscopy; N/A 4. Abdominal pain, epigastric Case request: Colonoscopy; N/A 5. Bipolar affective disorder, remission status unspecified ([facility]) Case request: Colonoscop y; N/A Plan: Patient [...]
--- OUTSIDE RECORDS SUMMARY | ~2019-08-09 | XMS | Encounter Summary ---
Demographics + + + | Address | [address] | | | [place] [address] | + + + | Home Phone | | + + + | Preferred Language | Unknown | + + + | Marital Status | | + + + | Zoroastrianism Affiliation | 1027 | + + + [...] Team Providers + +------+ + | Care Main Entree Cook And Cashier Name | Role | Phone | + [...] | | | | | | | SC | | | | | | | COLONOSCOPY | | | | | | | FLX DX | | | | | | | W/COLLJ SPEC | | | | | | | WHEN PFRMD | | | | | | | SC | | | | | | | COLONOSCOPY | | | | | | | W/BIOPSY | | | | | | | SINGLE/MULTI | | | | | | | PLE SC | | | | | | | COLSC FLX | | | | | | | W/RMVL OF | | | | | | | TUMOR POLYP | | | | | | | LESION SNARE | | | | | | | TQ SC | | | | | | | [...] + + + + | 06/01/ | Anesthesia | [facility] | Milind Bejarano | | | 2016 | Event | MED CTR MP INTRA OP | MD Valentina [address] | | | | | [address] | [address] [place] | | | | | [place] | [address] | | | | | [address] | [phone] | | | | | [phone] | | | +--------+ + + + + Anesthesia Record + + + + + | Procedure Name | Responsible | Anesthesia Start | Anesthesia Stop Time | | | Anesthesiologist | Time | | + + + + + | COLONOSCOPY (N/A | Milind Bejarano, | 06/01/17 1105 | 06/01/17 1148 | | Rectum) | MD | | | + + + + + +----+---+ + + | Da | T | Event | Comment | | te | i | | | | | m | | | | | e | | | +----+---+ + + | 10 | 1 | | | | /3 | 1 | | | | 1/ | 0 | | | | 20 | 5 | | | | 17 | | | | +----+---+ + + | | 1 | An Checkout | Pre-use anesthesia machine/equipment checkout. | | | 1 | | | | | 0 | | | | | 5 | | | +----+---+ + + | | 1 | An Start | Room ready, anesthesia equipment checked, essential drugs & | | | 1 | | equipment available. Patient Identity checked, anesthesia plan | | | 0 | | explained and consent obtained. Patient transported to [facility], | | | 5 | | Monitors applied. Reassessment prior to anesthesia | | | | | induction/procedure. | +----+---+ + + | | 1 | an fortunato now | | | | 1 | | | | | 0 | | | | | 7 | | | +----+---+ + + | | 1 | AN | Per surgeon request | | | 1 | Antibiotic | | | | 0 | declined | | | | 9 | | | +----+---+ + + | | 1 | First | | | | 1 | Inc/Proc St | | | | 1 | | | | | 6 | | | +----+---+ + + | | 1 | an fortunato now | Colon | | | 1 | | | | | 2 | | | | | 1 | | | +----+---+ + + | | 1 | an stop | SDSU 10 | | | 1 | data | | | | 4 | | | | | 6 | | | +----+---+ + + | | 1 | an fortunato now | | | | 1 | | | | | 4 | | | | | 7 | | | +----+---+ + + | | 1 | An Stop | Patient handed off to recovery nurse. | | | 4 | | | | | 8 | | | +----+---+ + + +------+ | Meds | +------+ + + + | Name | Total | + + + | propofol | 120 mg | + + + | propofol (DIPRIVAN) injection | 414.32 mg | | (bolus) (20 mL) | | + + + | lactated ringers (LR) infusion | 800 mL | + + + + + | Name | + + | O2 Flow Rate (L/Min) | + + + + | No blood administrations on file. | + + +--------+ + + + | Type | Details | Placement | Removal | +--------+ + + + | Periph | 06/01/17; 1034; Right; Mid; | 06/01/17 1034 by | 06/01/17 1218 by | | eral | Forearm; wgzm-urd-yuqrlw catheter | Falguni Simental RN | Mariel Obrien RN | | IV | system; 20 gauge, 08/05 in | | | | | length; distraction, appears | | | | | comfortable, tolerated well, | | | | | topical anesthetic spray applied; | | | | | no longer indicated; short term | | | | | use; 06/01/17; 1218 | | | +--------+ + + + [...] in this encounter Administered Medications + +--------+ +-------+------+------+ | Medication Order | MAR | Action | Dose | Rate | Site | | | Action | Date | | | | + +--------+ +-------+------+------+ | propofol (DIPRIVAN) injection | Given | 06/01/20 | 20 mg | | | | Intravenous, PRN, Starting Tue | | 17 11:21 | | | | | 06/01/17 at 1120, Anesthesia | | AM PDT | | | | | Intra-op | | | | | | + +--------+ +-------+------+------+ +-------+ +-------+---+---+ | Given | 06/01/20 | 50 mg | | | | | 17 11:20 | | | | | | AM PDT | | | | +-------+ +-------+---+---+ | Given | 06/01/20 | 50 mg | | | | | 17 11:19 | | | | | | AM PDT | | | | +-------+ +-------+---+---+ +---+---+ | | | +---+---+ + +---------+ + +-------+---+ | propofol (DIPRIVAN) injection | New Bag | 06/01/20 | 150 | 92.1 | | | Intravenous, CONTINUOUS PRN, | | 17 11:21 | mcg/kg/m | mL/hr | | | Starting 06/01/17 at 1121, | | AM PDT | in | | | | Anesthesia Intra-op | | | | | | + +---------+ + +-------+---+ +---+---+ | | | +---+---+ documented in this encounter"
--- OUTSIDE RECORDS SUMMARY | ~2019-08-09 | XMS | Encounter Summary ---
Demographics + + + | Address | [address] | | | [place] [address] | + + + | Home Phone | | + + + | Preferred Language | Unknown | + + + | Marital Status | | + + + | Jain Affiliation | 1027 | + + + | Race | Unknown | + + + | Ethnic Group | Unknown | + + + Author + + + | Author | [facility] | | | and [place] | + + + | Organization | [facility] | | [...] Team Providers + +------+ + | Care Hand Loom Weaver Name | Role | Phone | + +------+ + | Ronda Wade MD | PCP | | + +------+ + Encounter Details +--------+ + + + + | Date | Type | Department | Care Team | Description | +--------+ + + + + | 03/26/ | Orders Only | [facility] | Conversion | | | 2013 | | [address] | Transaction, | | | | | [place] | Provider Unknown | | | | | [address] | [phone] | | | | | [phone] | | | +--------+ + + + [...] + | C-REACTIVE PROTEIN | Routin | 03/26/2014 | | Results for this | | | e | 6:06 AM | | procedure are in the | | | | PDT | | results section. | + +--------+ + + + documented in this encounter Results C-Reactive Protein (03/26/2014 6:06 AM PDT) + + + + + + | Component | Value | Ref Range | Performed | Pathologist | | | | | At | Signature | + + + + + + | CRP | 1.6 (H)Comment: Testing | mg/dL | EXTERNAL | | | | performed at [facility] | | LAB | | | | Health; [address]; | | | | | | [place] [address] | | | | + + + [...]
--- OUTSIDE RECORDS SUMMARY | ~2019-08-09 | XMS | Encounter Summary ---
Demographics + + + | Address | [address] | | | [place] [address] | + + + | Home Phone | | + + + | Preferred Language | Unknown | + + + | Marital Status | | + + + | Islam Affiliation | 1027 | + + + | Race | Unknown | + + + | Ethnic Group | Unknown | + + + Author + + + | Author | [facility] | | | and [place] | + + + | Organization | [facility] | | | and [...] Providers + +------+ + | Care Fountain Clerk Name | Role | Phone | + +------+ + PCP | Unavailable | + +------+ + Encounter Details +--------+ + + + + | Date | Type | Department | Care Team | Description | +--------+ + + + + | 03/03/ | Hospital | [facility] | Handy Anderson P, | | | 1993 | Encounter | [facility] | DO [address] | | | | | GENERIC OP CONV DEPT | [address] [place], [place] | | | | | [address] | [id number] | | | | | [place], [place] | | | | | | [address] | | | | | | [phone] | | | +--------+ + + + [...]
--- OUTSIDE RECORDS SUMMARY | ~2019-08-09 | XMS | Encounter Summary ---
Demographics + + + | Address | [address] | | | [place] [address] | + + + | Home Phone [...] Team Providers + +------+ + | Care School Counselor Name | Role | Phone | [...] [facility] | Diagnoses | Santos, | Zzcdr | | | | | Bilateral | MD Cristopher | Genetics [address] | | | | | leg edema | [address] | [address] | | | | | Procedures | Veterans | Mailcode: | | | | | CONSULT TO | Hospital | [facility] | | | | | [facility] | Road | [place], [place] | | | | | GENETICS | [place], [place] | [address] | | | | | | [address] | Phone: | | | | | | Phone: | [phone] | | | | | | [phone] | Fax: | | | | | | Fax: | [phone] | | | | | | [phone] | | +--------+--------+ + + + + Diagnostic Testing (Routine) +--------+--------+ + + + + | Status | Reason | Specialty | Diagnoses / | Referred By | Referred To | | | | | Procedures | Contact | Contact | +--------+--------+ + + + + | Closed | | Radiology | Diagnoses | Mackenzie, | Megan Mendozac | | | | | Bilateral | Nury Harrell, | Lab [address] | | | | | leg edema | [place] [address] | [address] | | | | | Procedures | [address] | Loop | | | | | VASC LAB | [address] | Mailcode: | | | | | VENOUS | [place], [place] | [address] | | | | | DUPLEX LOWER | [address] | Physician's | | | | | EXTREMITY | Phone: | Pavilion | | | | | BILAT COMP | [phone] | [place], [place] | | | | | | Fax: | [address] | | | | | | [phone] | Phone: | | | | | | | [phone] | | | | | | | Fax: | | | | | | | [phone] | +--------+--------+ + + + + Reason [...] edema | | 2015 | Visit | [facility] [address] | [address] | (Primary Dx) | | | | Ave Mailcode: CH8N | [place], [place] | | | | | [facility] | [address] | | | | | and Healing, | [phone] | | | | | [facility] | | | | | | Floor [place], [place] | | | | | | [address] | | | | | | [phone] | | | +--------+---------+ + + + [...] Mckinney MD - 11/17/2014 2:21 PM PDTMs. Villegas is doing very well since resection [...] every six hours. Take 1 tablet by [facility] every 8 hours for 2 days. Take [...] 2) Contact our office or present to [facility] Emergency Department for severe headache not [...] | | + +---------+ + + | [facility] DEPARTMENT OF | | | | | RADIOLOGY | | | | + +---------+ + + documented in this encounter Visit Diagnoses + + | Diagnosis | + + | Bilateral leg edema - Primary Edema | + + documented in this encounter
--- OUTSIDE RECORDS SUMMARY | ~2019-08-09 | XMS | Encounter Summary ---
Demographics + + + | Address | [address] | | | [place] [address] | + + + | Home Phone | | + + + | Preferred Language | Unknown | + + + | Marital Status | | + + + | Mandaeism Affiliation | LDS | + + + [...] Team Providers + +------+ + | Care Software Engineer Developer Name | Role | Phone | [...] of | [address], [place] [address] | [address] | | | | | brain (HCC) | [address] | [facility] | | | | | Procedures | [facility] | Rd | | | | | MRI BRAIN | Rd | Mailcode: | | | | | W CONTRAST - | [place], [place] | [address] | | | | | FRAMELESS | [address] | [place] | | | | | STEREOTATIC | Phone: | Research | | | | | ONLY [place] MRI | [phone] | Banks | | | | | BRAIN | Fax: | [place], [place] | | | | | CONTRAST | [phone] | [address] | | | | | | | Phone: | | | | | | | [phone] | | | | | | | Fax: | | | | | | | [phone] | +--------+--------+ + + + + Reason [...] Order | | 2015 | on | [facility] [address] | [address] | | | | | Ave Mailcode: CH8N | [place], [place] | | | | | [facility] | [address] | | | | | and Healing, | [phone] | | | | | [facility] | | | | | | [place], [place] | | | | | | [address] | | | | | | [phone] | | | +--------+ + + + [...]
--- OUTSIDE RECORDS SUMMARY | ~2019-08-09 | XMS | Encounter Summary ---
Demographics + + + | Address | [address] | | | [place] [address] | + + + | Home Phone | | + + + | Preferred Language | Unknown | + + + | Marital Status | | + + + | Sikh Affiliation | 1027 | + + + | Race | Unknown | + + + | Ethnic Group | Unknown | + + + Author + + + | Author | [facility] | | | and [place] | + + + | Organization | [facility] | | | [...] Team Providers + +------+ + | Care Three Dimensional Map Modeler Name | Role | Phone | + +------+ + PCP | Unavailable | + +------+ + Encounter Details +--------+ + + + + | Date | Type | Department | Care Team | Description | +--------+ + + + + | 12/04/ | Hospital | [facility] | Handy Anderson P, | | | 1993 | Encounter | [facility] | DO [address] | | | | | GENERIC OP CONV DEPT | [address] [place], [place] | | | | | [address] | [id number] | | | | | [place], [place] | | | | | | [address] | | | | | | [phone] | | | +--------+ + + + [...]
--- OUTSIDE RECORDS SUMMARY | ~2019-08-09 | XMS | Encounter Summary ---
Demographics + + + | Address | [address] | | | [place] [address] | + + + | Home Phone | | + + + | Preferred Language | Unknown | + + + | Marital Status | | + + + | Buddhist Affiliation | 1027 | + + + | Race | Unknown | + + + | Ethnic Group | Unknown | + + + Author + + + | Author | [facility] | | | and [place] | + + + | Organization | [facility] | | [...] Providers + +------+ + | Care Drug Abuse Technician Name | Role | Phone | + +------+ + | Ronda Wade MD | PCP | | + +------+ + Encounter Details +--------+ + + + + | Date | Type | Department | Care Team | Description | +--------+ + + + + | 03/24/ | Orders Only | [facility] | Abram Friend MD | | | 2013 | | [address] | [address] | | | | | [place] | [place] | | | | | [address] | [address] | | | | | [phone] | [phone] | | | | | | | [...] + | VANCOMYCIN, TROUGH | Routin | 03/24/2014 | | Results for this | | | e | 7:33 PM | | procedure are in the | | | | PDT | | results section. | + +--------+ + + + documented in this encounter Results Vancomycin, Trough (03/24/2014 7:33 PM PDT) + + + + + + | Component | Value | Ref Range | Performed | Pathologist | | | | | At | Signature | + + + + + + | Vancomycin | 13.1Comment: 15 to 20 | 10 - 20 [...] | | | | | performed at [facility] | | | | | | [facility]; [facility]; | | | | | | [place] [address] | | | | + + + [...]
--- OUTSIDE RECORDS SUMMARY | ~2019-08-09 | XMS | Encounter Summary ---
Demographics + + + | Address | [address] | | | [place] [address] | + + + | Home Phone [...] Team Providers + +------+ + | Care Transmission And Protection Engineer Name | Role | Phone | [...] [address] | | | | | | [place], [place] | | | | | | [address] | | | +--------+ + + + [...]
--- OUTSIDE RECORDS SUMMARY | ~2019-08-09 | XMS | Encounter Summary ---
Demographics + + + | Address | [address] | | | [place] [address] | + + + | Home Phone | | + + + | Preferred Language | Unknown | + + + | Marital Status | | + + + | Hindu Affiliation | 1027 | + + + | Race | Unknown | + + + | Ethnic Group | Unknown | + + + Author + + + | Author | [facility] | | | and [place] | + + + | Organization | [facility] | [...] Providers + +------+ + | Care Back Order Clerk Name | Role | Phone | + +------+ + PCP | Unavailable | + +------+ + Encounter Details +--------+ + + + + | Date | Type | Department | Care Team | Description | +--------+ + + + + | 04/07/ | Hospital | [facility] | Handy Anderson P, | | | 1993 | Encounter | [facility] | DO [address] | | | | | GENERIC OP CONV DEPT | [address] [place], [place] | | | | | [address] | [id number] | | | | | [place], [place] | | | | | | [address] | | | | | | [phone] | | | +--------+ + + + [...]
--- OUTSIDE RECORDS SUMMARY | ~2019-08-09 | XMS | Encounter Summary ---
Demographics + + + | Address | [address] | | | [place] [address] | + + + | Home Phone | | + + + | Preferred Language | Unknown | + + + | Marital Status | | + + + | Buddhist Affiliation | 1027 | + + + | Race | Unknown | + + + | Ethnic Group | Unknown | + + + Author + + + | Author | [facility] | | | and [place] | + + + | Organization | [facility] | | | [...] Providers + +------+ + | Care Manager Performance Name | Role | Phone | + +------+ + PCP | Unavailable | + +------+ + Encounter Details +--------+ + + + + | Date | Type | Department | Care Team | Description | +--------+ + + + + | 07/01/ | Hospital | [facility] | Handy Anderson P, | | | 1993 - | Encounter | [facility] | DO [address] | | | | | GENERIC OP CONV DEPT | [address] [place], [place] | | | 07/15/ | | [address] | [id number] | | | 1993 | | [place], [place] | | | | | | [address] | | | | | | [phone] | | | +--------+ + + + [...]
--- OUTSIDE RECORDS SUMMARY | ~2019-08-09 | XMS | Encounter Summary ---
Demographics + + + | Address | [address] | | | [place] [address] | + + + | Home Phone | | + + + | Preferred Language | Unknown | + + + | Marital Status | | + + + | Pentecostal Affiliation | 1027 | + + + | Race | Unknown | + + + | Ethnic Group | Unknown | + + + Author + + + | Author | [facility] | | | and [place] | + + + | Organization | [facility] | | | [...] Team Providers + +------+ + | Care Warehouse Stocker Name | Role | Phone | + +------+ + PCP | Unavailable | + +------+ + Encounter Details +--------+ + + + + | Date | Type | Department | Care Team | Description | +--------+ + + + + | 12/04/ | Hospital | [facility] | Handy Anderson P, | | | 1993 | Encounter | [facility] | DO [address] | | | | | GENERIC OP CONV DEPT | RD [place], [place] | | | | | [address] | [id number] | | | | | [place], [place] | | | | | | [address] | | | | | | [phone] | | | +--------+ + + + [...]
--- OUTSIDE RECORDS SUMMARY | ~2019-08-09 | XMS | Encounter Summary ---
Demographics + + + | Address | [address] | | | [place] [address] | + + + | Home Phone | | + + + | Preferred Language | Unknown | + + + | Marital Status | | + + + | Jewish Affiliation | 1027 | + + + | Race | Unknown | + + + | Ethnic Group | Unknown | + + + Author + + + | Author | [facility] | | | and [place] | + + + | Organization | [facility] | | [...] Providers + +------+ + | Care Technical Designer Name | Role | Phone | + +------+ + PCP | Unavailable | + +------+ + Encounter Details +--------+ + + + + | Date | Type | Department | Care Team | Description | +--------+ + + + + | 12/24/ | Hospital | [facility] | John Doyle | | | 2007 | Encounter | MED CTR SLEEP | MD [place] | | | | | CENTER [address] | [facility] | | | | | [place] | [place] [address] | | | | | [address] | [phone] | | | | | [phone] | | | +--------+ + + + [...]
--- OUTSIDE RECORDS SUMMARY | ~2019-08-09 | XMS | Encounter Summary ---
Demographics + + + | Address | [address] | | | [place] [address] | + + + | Home Phone | | + + + | Preferred Language | Unknown | + + + | Marital Status | | + + + | Taoist Affiliation | 1027 | + + + [...] Team Providers + +------+ + | Care Strategic Advisor Name | Role | Phone | + +------+ + PCP | Unavailable | + +------+ + Encounter Details +--------+ + + + + | Date | Type | Department | Care Team | Description | +--------+ + + + + | 10/05/ | Hospital | [facility] | Handy Anderson P, | | | 1993 | Encounter | [facility] | DO [address] | | | | | GENERIC OP CONV DEPT | RD [place], [place] | | | | | [address] | [id number] | | | | | [place], [place] | | | | | | [address] | | | | | | [phone] | | | +--------+ + + + [...]
--- OUTSIDE RECORDS SUMMARY | ~2019-08-09 | XMS | Encounter Summary ---
Demographics + + + | Address | [address] | | | [place] [address] | + + + | Home Phone [...] Providers + +------+ + | Care Tool Grinding Machine Operator Name | Role | Phone [...] Phone Call | | 2017 | | [facility] [address] | [address] [place] | | | | | Yany Mailcode: CH8N | [place], [place] | | | | | [facility] | [address] | | | | | and Clarisse, | [phone] | | | | | [facility] | | | | | | [place], [place] | | | | | | [address] | | | | | | [phone] | | | +--------+ + + + [...]
--- OUTSIDE RECORDS SUMMARY | ~2019-08-09 | XMS | Clinical Summary ---
Demographics + + + | Address | [address] | | | [place] [address] | + + + | Home Phone [...] Team Providers + +------+ + | Care Wood Grainer Name | Role | Phone | + +------+ + | Marixa Weber MD | PCP | | + +------+ + Source Comments LIZZJUAN is fully live on both [facility] and [facility] + + + + + + [...] | e | | | bedtime. 2 [id number] | | | 14 | | | [...] 12/29/ | [id number] | | 3 - [id number]: Qty: | | Head | LIFESCIENCE | | 2017 | 91 / | | 1 on 2014 by Santos | | | S | | | /[id number] | | MD Bart at [facility] | | | | | | 70 | | REV LOC | | | | | | | + +------+-------+ +--------+--------+--------+ | Mesh Contour [id number] | | N/A: | [employer] [place] | | | 04.503 | | Malleable Matrix Neuro - | | Head | | | | .083 / | | [id number]: Qty: 1 on | | | | | | / | | 2014 by Brat Graham, | | | | | | | | MD at [facility] INPATIENT REV LOC | | | | | | | + +------+-------+ +--------+--------+--------+ | Screw 04mm Ti Self-Drill | | N/A: | [facility] | | | 04.503 | | Matrix Neuro - | | Head | | | | .104.0 | | [id number]: Qty: 6 on | | | | [...] | x | 008-Pr | 8 | [address] | | | | STATE | | esent | | [place], | | | | | | | | [place] | | | | | | | | [address] | | + +--------+ +--------+ + +------+ [...] meredith | | | 1 (Home) | [address] | + +--------+ +--------+ + + Advance [...]
--- OUTSIDE RECORDS SUMMARY | ~2019-08-09 | XMS | Encounter Summary ---
Demographics + + + | Address | [address] | | | [place] [address] | + + + | Home Phone [...] Team Providers + +------+ + | Care Football Coach Name | Role | Phone | + +------+ + PCP | Unavailable | + +------+ + Encounter Details +--------+ + + + + | Date | Type | Department | Care Team | Description | +--------+ + + + + | 09/01/ | Hospital | [facility] | Handy Anderson P, | | | 1994 | Encounter | [facility] | DO [address] | | | | | GENERIC OP CONV DEPT | [address] [place], [place] | | | | | [address] | [phone] | | | | | [place], [place] | | | | | | [address] | | | | | | [phone] | | | +--------+ + + + [...]
--- OUTSIDE RECORDS SUMMARY | ~2019-08-09 | XMS | Encounter Summary ---
Demographics + + + | Address | [address] | | | [place] [address] | + + + | Home Phone | | + + + | Preferred Language | Unknown | + + + | Marital Status | | + + + | Sabianist Affiliation | 1027 | + + + | Race | Unknown | + + + | Ethnic Group | Unknown | + + + Author + + + | Author | [facility] | | | and [place] | + + + | Organization | [facility] | | | and [...] Team Providers + +------+ + | Care Stores Clerk Name | Role | Phone | + +------+ + PCP | Unavailable | + +------+ + Encounter Details +--------+ + + + + | Date | Type | Department | Care Team | Description | +--------+ + + + + | 05/07/ | Hospital | [facility] | Handy Anderson P, | | | 1993 | Encounter | [facility] | DO [address] | | | | | GENERIC OP CONV DEPT | [address] [place], [place] | | | | | [address] | [phone] | | | | | [place], [place] | | | | | | [address] | | | | | | [phone] | | | +--------+ + + + [...]
--- OUTSIDE RECORDS SUMMARY | ~2019-08-09 | XMS | Encounter Summary ---
Demographics + + + | Address | [address] | | | [place] [address] | + + + | Home Phone | | + + + | Preferred Language | Unknown | + + + | Marital Status | | + + + | Shinto Affiliation | 1027 | + + + | Race | Unknown | + + + | Ethnic Group | Unknown | + + + Author + + + | Author | [facility] | | | and [place] | + + + | Organization | [facility] | | | [...] Providers + +------+ + | Care Campaign Management Specialist Name | Role | Phone | + +------+ + PCP | Unavailable | + +------+ + Encounter Details +--------+ + + + + | Date | Type | Department | Care Team | Description | +--------+ + + + + | 09/22/ | Hospital | [facility] | Handy Anderson P, | | | 1993 | Encounter | [facility] | DO [address] | | | | | GENERIC OP CONV DEPT | [address] [place], [place] | | | | | [address] | [phone] | | | | | [place], [place] | | | | | | [address] | | | | | | [phone] | | | +--------+ + + + [...]
--- OUTSIDE RECORDS SUMMARY | ~2019-08-09 | XMS | Encounter Summary ---
Demographics + + + | Address | [address] | | | [place] [address] | [...] + + + | Author | [facility] | + + + | Organization | [facility] | + + + | [...] Team Providers + +------+ + | Care Garnett Feeder Name | Role | Phone | + +------+ + | Ashwini Ochoa NP | PCP | | + +------+ + Encounter Details +--------+ + + + + | Date | Type | Department | Care Team | Description | +--------+ + + + + | 03/06/ | Document-Sc | Health Information | Unknown . | | | 2013 | anned | Services [id number] | | | | | | Bill Dyson Misha | | | | | | Mailcode: OP17A | | | | | | [facility] | | | | | | [place], [place] | | | | | | [address] | | | | | | [phone] | | | +--------+ + + + [...]
--- OUTSIDE RECORDS SUMMARY | ~2019-08-09 | XMS | Encounter Summary ---
Demographics + + + | Address | [address] | | | [place] [address] | + + + | Home Phone | | + + + | Preferred Language | Unknown | + + + | Marital Status | | + + + | Amish Affiliation | 1027 | + + + [...] Team Providers + +------+ + | Care Military Nurse Name | Role | Phone | [...] Provider Unknown | | | | | [address] | [phone] | | | | | [phone] | | | +--------+ + + + [...] | | | | performed at [facility] | | LAB | | | | Health; [address]; | | | | | | [place] [address] | | | | + + + + + + | RED CELL | 2.99 (L)Comment: Testing | 3.70 - 5.10 | EXTERNAL | | | COUNT | performed at [facility] | M/uL | LAB | | | | Health; [address]; | | | | | | [place] [address] | | | | + + + + + + | Hgb | 8.6 (L)Comment: Testing | 11.3 - 15.5 | EXTERNAL | | | | performed at [facility] | g/dL | LAB | | | | Health; [address]; | | | | | | [place] [address] | | | | + + + + + + | Hematocrit, | 27.6 (L)Comment: Testing | 34.0 - 46.0 % | EXTERNAL | | | POC | performed at [facility] | | LAB | | | | Health; [address]; | | | | | | [place] [address] | | | | + + + + + + | MCV | 92.4Comment: Testing | 80.0 - 100.0 fl | EXTERNAL | | | | performed at [facility] | | LAB | | | | Health; [address]; | | | | | | [place] [address] | | | | + + + + + + | MCH | 28.9Comment: Testing | 27.0 - 34.0 pg | EXTERNAL | | | | performed at [facility] | | LAB | | | | Health; [address]; | | | | | | [place] [address] | | | | + + + + + + | MCHC | 31.3 (L)Comment: Testing | 32.0 - 35.5 | EXTERNAL | | | | performed at [facility] | g/dL | LAB | | | | Health; [address]; | | | | | | [place] [address] | | | | + + + + + + | RDW-CV | 72.2 (H)Comment: Testing | 37 - 53 fl | EXTERNAL | | | | performed at [facility] | | LAB | | | | Health; [address]; | | | | | | [place] [address] | | | | + + + + + + | Platelet | 604 (H)Comment: Testing | 150 - 400 K/uL | EXTERNAL | | | Count | performed at [facility] | | LAB | | | Plasma | Health; [address]; | | | | | | [place] [address] | | | | + + + + + + | MPV | 6.6Comment: Testing | fl | EXTERNAL | | | | performed at [facility] | | LAB | | | | Health; [address]; | | | | | | [place] [address] | | | | + + + + + + | Differentia | MANUALComment: Testing | | EXTERNAL | | | l Type | performed at [facility] | | LAB | | | | Health; [address]; | | | | | | [place] [address] | | | | + + + + + + | Segmented | 54Comment: Testing | % | EXTERNAL | | | Neutrophils | performed at [facility] | | LAB | | | Manual | Health; [address]; | | | | | | [place] [address] | | | | + + + + + + | % | 6Comment: Testing | % | EXTERNAL | | | Metamyelocy | performed at [facility] | | LAB | | | ucrly | Health; [address]; | | | | | | [place] [address] | | | | + + + + + + | Lymphocytes | 24Comment: Testing | % | EXTERNAL | | | Manual | performed at [facility] | | LAB | | | | Health; [address]; | | | | | | [place] [address] | | | | + + + + + + | Monocytes | 1Comment: Testing | % | EXTERNAL | | | Manual | performed at [facility] | | LAB | | | | Health; [address]; | | | | | | [place] [address] | | | | + + + + + + | Eosinophils | 15Comment: Testing | % | EXTERNAL | | | Manual | performed at [facility] | | LAB | | | | Health; [address]; | | | | | | [place] [address] | | | | + + + + + + | Absolute | 6.4Comment: Testing | 1.9 - 7.4 K/uL | EXTERNAL | | | Neutrophils | performed at [facility] | | LAB | | | | Health; [address]; | | | | | | [place] [address] | | | | + + + + + + | Absolute | 0.7 (H)Comment: Testing | K/uL | EXTERNAL | | | Metamyelocy | performed at [facility] | | LAB | | | curly | Health; [address]; | | | | | | [place] [address] | | | | + + + + + + | Absolute | 2.8Comment: Testing | 1.0 - 3.9 K/uL | EXTERNAL | | | Lymphocytes | performed at [facility] | | LAB | | | | Health; [address]; | | | | | | [place] [address] | | | | + + + + + + | Absolute | 0.1Comment: Testing | 0 - 0.8 K/uL | EXTERNAL | | | Monocytes | performed at [facility] | | LAB | | | | Health; [address]; | | | | | | [place] [address] | | | | + + + + + + | Absolute | 1.8 (H)Comment: Testing | 0 - 0.5 K/uL | EXTERNAL | | | Eosinophils | performed at [facility] | | LAB | | | | Health; [address]; | | | | | | [place] [address] | | | | + + + [...] | EXTERNAL | | | Morphology | [facility]; [address] | | LAB | | | | [place] | | | | | | [address] | | | | + + + [...]
--- OUTSIDE RECORDS SUMMARY | ~2019-08-09 | XMS | Encounter Summary ---
Demographics + + + | Address | [address] | | | [place] [address] | + + + | Home Phone | | + + + | Preferred Language | Unknown | + + + | Marital Status | | + + + | Pentecostalism Affiliation | 1027 | + + + | Race | Unknown | + + + | Ethnic Group | Unknown | + + + Author + + + | Author | [facility] | | | and [place] | + + + | Organization | [facility] | | | [...] Team Providers + +------+ + | Care Lapidary Apprentice Name | Role | Phone | + +------+ + PCP | Unavailable | + +------+ + Encounter Details +--------+ + + + + | Date | Type | Department | Care Team | Description | +--------+ + + + + | 09/27/ | Hospital | [facility] | ZZ, DEFAULT | | | 1991 | Encounter | [facility] | | | | | | GENERIC OP CONV DEPT | | | | | | [address] | | | | | | [place] | | | | | | [address] | | | | | | [phone] | | | +--------+ + + + [...]
--- OUTSIDE RECORDS SUMMARY | ~2019-08-09 | XMS | Encounter Summary ---
Demographics + + + | Address | [address] | | | [place] [address] | + + + | Home Phone | | + + + | Preferred Language | Unknown | + + + | Marital Status | | + + + | Tenriism Affiliation | 1027 | + + + | Race | Unknown | + + + | Ethnic Group | Unknown | + + + Author + + + | Author | [facility] | | | and [place] | + + + | Organization | [facility] | | | [...] Providers + +------+ + | Care Director Aeronautics Commission Name | Role | Phone | + +------+ + PCP | Unavailable | + +------+ + Encounter Details +--------+ + + + + | Date | Type | Department | Care Team | Description | +--------+ + + + + | 10/07/ | Hospital | [facility] | ZZ, DEFAULT | | | 1991 - | Encounter | [facility] | | | | | | GENERIC OP CONV DEPT | | | | 10/11/ | | [address] | | | | 1990 | | [place] | | | | | | [address] | | | | | | [phone] | | | +--------+ + + + [...]
--- OUTSIDE RECORDS SUMMARY | ~2019-08-09 | XMS | Encounter Summary ---
Demographics + + + | Address | [address] | | | [place] [address] | + + + | Home Phone [...] Team Providers + +------+ + | Care Research Contracts Supervisor Name | Role | Phone | + +------+ + | Marixa Weber MD | PCP | | + +------+ + Encounter Details +--------+ + + + + | Date | Type | Department | Care Team | Description | +--------+ + + + + | 08/28/ | Document-Sc | UNKNOWN DEPARTMENT | Other, Faculty | | | 2014 | anned | [address] [facility] | [phone] | | | | | [address] | | | | | | [place], [place] | | | | | | [address] | | | +--------+ + + + [...]
--- OUTSIDE RECORDS SUMMARY | ~2019-08-09 | XMS | Encounter Summary ---
Demographics + + + | Address | [address] | | | [place] [address] | + + + | Home Phone [...] Team Providers + +------+ + | Care Pump Installation And Servicer Name | Role | Phone | + [...] Khan | | | | | [facility] | [address] | | | | | Hospital Admitting | [place], [place] | | | | | Desk Located on the | [address] | | | | | 9th floor | [phone] | | | | | [place], [place] | | | | | | [address] | | | +--------+ + + + [...]
--- OUTSIDE RECORDS SUMMARY | ~2019-08-09 | XMS | Encounter Summary ---
Demographics + + + | Address | [address] | | | [place] [address] | + + + | Home Phone [...] Providers + +------+ + | Care It Senior Software Engineer Java Name | Role | Phone | + [...] [facility] | DO [address] | | | | | GENERIC OP CONV DEPT | [address] [place], [place] | | | | | [address] | [id number] | | | | | [place], [place] | | | | | | [address] | | | | | | [phone] | | | +--------+ + + + [...]
--- OUTSIDE RECORDS SUMMARY | ~2019-08-09 | XMS | Encounter Summary ---
Demographics + + + | Address | [address] | | | [place] [address] | + + + | Home Phone | | + + + | Preferred Language | Unknown | + + + | Marital Status | | + + + | Gnosticist Affiliation | 1027 | + + + [...] Providers + +------+ + | Care Manager Title Name | Role | Phone | + [...] [place] | | | | | [address] | [address] | | | | | [phone] | [phone] | | | | | | | [...] + +--------+ + + + | CULTURE, BLOOD, 2ND | Routin | 04/26/2014 | | Results for this | | SPECIMEN (NON-ORD) | e | 9:35 PM | | procedure are in the | | | | PDT | | results section. | + +--------+ + + + documented in this encounter Results Culture, Blood, 2nd Specimen (04/26/2014 9:35 PM PDT) + + | Specimen | + + | | + + + + + | Narrative | Performed At | + + + | Specimen Description BLOOD SPECIAL | EXTERNAL LAB | | REQUESTS RIGHT AC DRAWN BY LAB/3006 | | | Testing performed at | | | HW; [address]; [place] [address] CULTURE | | | NO GROWTH | | | Testing performed at [facility], [address] | | | [place] [address] | | | | | + + + + +---------+ + + | Performing | Address | City/State/Zipcode | Phone Number | | Organization | | | | + +---------+ + + | EXTERNAL LAB | | | | + +---------+ + + documented in this encounter Visit Diagnoses Not on filedocumented in this encounter"
--- OUTSIDE RECORDS SUMMARY | ~2019-08-09 | XMS | Encounter Summary ---
Demographics + + + | Address | [address] | | | [place] [address] | + + + | Home Phone | | + + + | Preferred Language | Unknown | + + + | Marital Status | | + + + | Denominational Affiliation | 1027 | + + + [...] Team Providers + +------+ + | Care Registry Nurse Name | Role | Phone | + +------+ + PCP | Unavailable | + +------+ + Encounter Details +--------+ + + + + | Date | Type | Department | Care Team | Description | +--------+ + + + + | 10/24/ | Hospital | [facility] | Handy Anderson P, | | | 1994 - | Encounter | [facility] | DO [address] | | | | | GENERIC OP CONV DEPT | [address] [place], [place] | | | 10/26/ | | [address] | [address] | | | 1993 | | [place], [place] | | | | | | [address] | Veronika Mcclellan Priscilla, | | | | | [phone] | MD [address] | | | | | | [address] [place], [place] | | | | | | [address] | | | | | | | [...]
--- OUTSIDE RECORDS SUMMARY | ~2019-08-09 | XMS | Encounter Summary ---
Demographics + + + | Address | [address] | | | [place] [address] | + + + | Home Phone | | + + + | Preferred Language | Unknown | + + + | Marital Status | | + + + | Hinduism Affiliation | 1027 | + + + | Race | Unknown | + + + | Ethnic Group | Unknown | + + + Author + + + | Author | [facility] | | | and [place] | + + + | Organization | [facility] | | [...] Team Providers + +------+ + | Care Prosthetic Assistant Name | Role | Phone | + +------+ + PCP | Unavailable | + +------+ + Encounter Details +--------+ + + + + | Date | Type | Department | Care Team | Description | +--------+ + + + + | 05/04/ | Hospital | [facility] | Eloisa Marrero MD | | | 1994 | Encounter | [facility] | [address] | | | | | GENERIC OP CONV DEPT | [place] [address] | | | | | [address] | [phone] | | | | | [place], [place] | | | | | | [address] | | | | | | [phone] | | | +--------+ + + + [...]
--- OUTSIDE RECORDS SUMMARY | ~2019-08-09 | XMS | Encounter Summary ---
Demographics + + + | Address | [address] | | | [place] [address] | + + + | Home Phone [...] Team Providers + +------+ + | Care Sports Physical Therapist Name | Role | Phone | + [...] | VASC LAB | [address] | Mailcode: | | | | | VENOUS | [place], [place] | [address] | | | | | DUPLEX LOWER | [address] | Physician's | | | | | EXTREMITY | Phone: | Pavilion | | | | | BILAT COMP | [phone] | [place], [place] | | | | | | Fax: | [address] | | | | | | [phone] | Phone: | | | | | | | [phone] | | | | | | | Fax: | | | | | | | [phone] | +--------+--------+ + + + + Reason [...] | | | | | VENOUS | [place], [place] | [address] | | | | | DUPLEX LOWER | [address] | Physician's | | | | | EXTREMITY | Phone: | Pavilion | | | | | BILAT COMP | [phone] | [place], [place] | | | | | | Fax: | [address] | | | | | | [phone] | Phone: | | | | | | | [phone] | | | | | | | Fax: | | | | | | | [phone] | +--------+--------+ + + + + Encounter [...] | | | | | | Pavilion [place], | | | | | | [place] [address] | | | | | | [phone] | | | +--------+ + + + [...] 14 | | | | bedtime. 2 [id number] | | | | | | | [...] | + +---------+ + + | [facility]PART[facility] OF | | | | | RADIOLOGY | | | | + +---------+ + + documented in this encounter Visit Diagnoses + + | Diagnosis | + + | Bilateral leg edema Edema | + + documented in this encounter"
--- OUTSIDE RECORDS SUMMARY | ~2019-08-09 | XMS | Encounter Summary ---
Demographics + + + | Address | [address] | | | [place] [address] | + + + | Home Phone [...] Providers + +------+ + | Care Body Component Engineer Name | Role | Phone | [...] | | | | | | | LA | | | | | | | COLONOSCOPY | | | | | | | FLX DX | | | | | | | W/COLLJ SPEC | | | | | | | WHEN PFRMD | | | | | | | LA | | | | | | | COLONOSCOPY | | | | | | | W/BIOPSY | | | | | | | SINGLE/MULTI | | | | | | | PLE LA | | | | | | | COLSC FLX | | | | | | | W/RMVL OF | | | | | | | TUMOR POLYP | | | | | | | LESION SNARE | | | | | | | TQ LA | | | | | | | [...] + | 06/01/ | Anesthesia | [facility] | Milind Bejarano | | | 2016 | Event | MED CTR [facility] INTRA OP | MD Valentina [address] | | | | | [address] | [address] [place] | | | | | [place] | [address] | | | | | [address] | [phone] | | | | | [phone] | | | +--------+ + + + [...] explained and consent obtained. Patient transported to [facility], | | | 5 | | Monitors [...] 1218 by | | eral | Forearm; fkvf-rjl-tbnxoc catheter | Falguni Simental RN | Mariel [...]
--- OUTSIDE RECORDS SUMMARY | ~2019-08-09 | XMS | Encounter Summary ---
Demographics + + + | Address | [address] | | | [place] [address] | + + + | Home Phone | | + + + | Preferred Language | Unknown | + + + | Marital Status | | + + + | Oriental Orthodox Affiliation | LDS | + + [...] Providers + +------+ + | Care Loan Underwriter Name | Role | Phone | + [...] [id number] | | | | | | [facility] | | | | | | [address] [place], [place] | | | | | | [address] | | | | | | [phone] | | | +--------+ + + + [...] mg by mouth once daily in the [facility]. TRAMADOL 50 MG TABLET Take 50 [...] by mouth once daily at bedtime. 2 [id number] mg CHILDREN'S MULTI-VIT GUMMIES ORAL Take by [...] perfume, lotions or powder. Remove any nail malay from at least one fingernail. Do not [...] your procedure. Surgery Check in Locations Admitting [facility] Surgery Check in Time: Someone from your surgeon's office or [facility] will provide you with information [...] it is after office hours, call the [facility] electric scoop operator at [phone] and ask them to page your doc tor. documented in this encounter Plan of Treatment Not on filedocumented as of this encounter Visit Diagnoses Not on filedocumented in this encounter"
--- OUTSIDE RECORDS SUMMARY | ~2019-08-09 | XMS | Encounter Summary ---
Demographics + + + | Address | [address] | | | [place] [address] | + + + | Home Phone | | + + + | Preferred Language | Unknown | + + + | Marital Status | | + + + | Anabaptist Affiliation | 1027 | + + + | Race | Unknown | + + + | Ethnic Group | Unknown | + + + Author + + + | Author | [facility] | | | and [place] | + + + | Organization | [facility] | | | [...] Team Providers + +------+ + | Care Belt Dresser Name | Role | Phone | + +------+ + PCP | Unavailable | + +------+ + Encounter Details +--------+ + + + + | Date | Type | Department | Care Team | Description | +--------+ + + + + | 09/27/ | Hospital | [facility] | ZZ, DEFAULT | | | 1991 | Encounter | [facility] | | | | | | GENERIC OP CONV DEPT | | | | | | [address] | | | | | | [place] | | | | | | [address] | | | | | | [phone] | | | +--------+ + + + [...]
--- OUTSIDE RECORDS SUMMARY | ~2019-08-09 | XMS | Encounter Summary ---
Demographics + + + | Address | [address] | | | [place] [address] | + + + | Home Phone | | + + + | Preferred Language | Unknown | + + + | Marital Status | | + + + | Mormon Affiliation | 1027 | + + + | Race | Unknown | + + + | Ethnic Group | Unknown | + + + Author + + + | Author | [facility] | | | and [place] | + + + | Organization | [facility] | | | and [...] Team Providers + +------+ + | Care Orchard Manager Name | Role | Phone | [...] [place] | | | | | [address] | [address] | | | | | [phone] | [phone] | | | | | | | [...] EXTERNAL | | | | performed at [facility] | | LAB | | | | Health; [address]; | | | | | | [place] [address] | | | | + + + + + + | Clarity | CLEARComment: Testing | | EXTERNAL | | | | performed at [facility] | | LAB | | | | Health; [address]; | | | | | | [place] [address] | | | | + + + + + + | Specific | 1.020Comment: Testing | 1.002 - 1.030 | EXTERNAL | | | Pease | performed at [facility] | | LAB | | | | Health; [address]; | | | | | | [place] [address] | | | | + + + + + + | Leukocyte | NEGATIVEComment: Testing | | EXTERNAL | | | Esterase, | performed at [facility] | | LAB | | | Urine | Health; [address]; | | | | | | [place] [address] | | | | + + + + + + | Nitrite, | NEGATIVEComment: Testing | | EXTERNAL | | | Urine | performed at [facility] | | LAB | | | | Health; [address]; | | | | | | [place] [address] | | | | + + + + + + | Urobilinoge | 0.2Comment: Testing | mg/dL | EXTERNAL | | | n, Urine | performed at [facility] | | LAB | | | | Health; [address]; | | | | | | [place] [address] | | | | + + + + + + | Protein, | NEGATIVEComment: Testing | mg/dL | EXTERNAL | | | Urine | performed at [facility] | | LAB | | | | Health; [address]; | | | | | | [place] [address] | | | | + + + + + + | pH, Urine | 5.5Comment: Testing | 5.0 - 8.0 | EXTERNAL | | | | performed at [facility] | | LAB | | | | Health; [address]; | | | | | | [place] [address] | | | | + + + + + + | Blood, | NEGATIVEComment: Testing | | EXTERNAL | | | Urine | performed at [facility] | | LAB | | | | Health; [address]; | | | | | | [place] [address] | | | | + + + + + + | Ketones | TRACE (A)Comment: | mg/dL | EXTERNAL | | | | Testing performed at | | LAB | | | | [facility]; [address] | | | | | | [address]; [place] | | | | | | [address] | | | | + + + + + + | Bilirubin, | NEGATIVEComment: Testing | | EXTERNAL | | | Urine | performed at [facility] | | LAB | | | | Health; [address]; | | | | | | [place] [address] | | | | + + + + + + | Glucose, | NEGATIVEComment: Testing | mg/dL | EXTERNAL | | | Urine | performed at [facility] | | LAB | | | | Health; [address]; | | | | | | [place] [address] | | | | + + + + + + | WBC, UA | 0-2Comment: Testing | 0 - 5 /hpf | EXTERNAL | | | | performed at [facility] | | LAB | | | | Health; [address]; | | | | | | [place] [address] | | | | + + + + + + | RBC, UA | 1-5Comment: Testing | 0 - 5 /hpf | EXTERNAL | | | | performed at [facility] | | LAB | | | | Health; [address]; | | | | | | [place] [address] | | | | + + + + + + | Epithelial | 26-50Comment: Testing | /lpf | EXTERNAL | | | Cells | performed at [facility] | | LAB | | | | Health; [address]; | | | | | | [place] [address] | | | | + + + + + + | Bacteria, | NONE SEENComment: | | EXTERNAL | | | UA | Testing performed at | | LAB | | | | [facility]; [address] | | | | | | [address]; [place] | | | | | | [address] | | | | + + + [...]
--- OUTSIDE RECORDS SUMMARY | ~2019-08-09 | XMS | Encounter Summary ---
Demographics + + + | Address | [address] | | | [place] [address] | + + + | Home Phone [...] + + + | Author | [facility] | | | and [place] | + + + | Organization | [facility] | | [...] Team Providers + +------+ + | Care Outsole Handler Name | Role | Phone | [...] | | CENTER [address] | [place] | | | | | [address] | [address] | | | | | [place] | | | | | | [address] | | | | | | [phone] | | | +--------+ + + + [...]
--- OUTSIDE RECORDS SUMMARY | ~2019-08-09 | XMS | Encounter Summary ---
Demographics + + + | Address | [address] | | | [place] [address] | + + + | Home Phone | | + + + | Preferred Language | Unknown | + + + | Marital Status | | + + + | Moravian Affiliation | 1027 | + + + | Race | Unknown | + + + | Ethnic Group | Unknown | + + + Author + + + | Author | [facility] | | | and [place] | + + + | Organization | [facility] | [...] Team Providers + +------+ + | Care Autoglazier Name | Role | Phone | + +------+ + PCP | Unavailable | + +------+ + Encounter Details +--------+ + + + + | Date | Type | Department | Care Team | Description | +--------+ + + + + | 07/19/ | Emergency | [facility] | John Nieves | | | 1994 | | [facility] | [address] | | | | | CENTER [address] [place], [place] | | | | | [address] | [address] | | | | | [place], [place] | | | | | | [address] | | | | | | [phone] | | | +--------+ + + + [...]
--- OUTSIDE RECORDS SUMMARY | ~2019-08-09 | XMS | Encounter Summary ---
Demographics + + + | Address | [address] | | | [place] [address] | + + + | Home Phone [...] Providers + +------+ + | Care Manager Programming Name | Role | Phone | + [...] Rd | | | | | | [place], [place] | | | | | | [address] | | | +--------+ + + + [...]
--- OUTSIDE RECORDS SUMMARY | ~2019-08-09 | XMS | Encounter Summary ---
Demographics + + + | Address | [address] | | | [place] [address] | + + + | Home Phone [...] Team Providers + +------+ + | Care Vegetable Picker Name | Role | Phone | + +------+ + PCP | Unavailable | + +------+ + Encounter Details +--------+ + + + + | Date | Type | Department | Care Team | Description | +--------+ + + + + | 10/24/ | Hospital | [facility] | Handy Anderson P, | | | 1993 - | Encounter | [facility] | DO [address] | | | | | GENERIC OP CONV DEPT | [address] [place], [place] | | | 10/26/ | | [address] | [address] | | | 1993 | | [place], [place] | | | | | | [address] | Veronika Mcclellan Priscilla, | | | | | [phone] | MD Adalgisa BARTLETT | | | | | | [address] [place], [place] | | | | | | [address] | | | | | | | [...]
--- OUTSIDE RECORDS SUMMARY | ~2019-08-09 | XMS | Encounter Summary ---
Demographics + + + | Address | [address] | | | [place] [address] | + + + | Home Phone [...] Providers + +------+ + | Care Director Learning And Development Name | Role | Phone | [...] | | | | | VENOUS | [place], [place] | [address] | | | | | [address] | [address] | Physician's | | | | | EXTREMITY | Phone: | Pavilion | | | | | [address]IL[address] | [phone] | [place], [place] | | | | | | Fax: | [address] | | | | | | [phone] | Phone: | | | | | | | [phone] | | | | | | | Fax: | | | | | | | [phone] | +--------+--------+ + + + + Reason [...] | | | | | VENOUS | [place], [place] | [address] | | | | | [address] | [address] | Physician's | | | | | EXTREMITY | Phone: | Pavilion | | | | | BILAT COMP | [phone] | [place], [place] | | | | | | Fax: | [address] | | | | | | [phone] | Phone: | | | | | | | [phone] | | | | | | | Fax: | | | | | | | [phone] | +--------+--------+ + + + + Encounter [...] | | | | | | Pavilion [place], | | | | | | [place] [address] | | | | | | [phone] | | | +--------+ + + + [...] 14 | | | | bedtime. 2 [id number] | | | | | | | [...]
--- OUTSIDE RECORDS SUMMARY | ~2019-08-09 | XMS | Encounter Summary ---
Demographics + + + | Address | [address] | | | [place] [address] | + + + | Home Phone [...] + | Author | [facility] | | | and [place] | + + + | Organization | [facility] | | [...] Team Providers + +------+ + | Care Steward/Stewardess Tourist Class Name | Role | Phone | + +------+ + PCP | Unavailable | + +------+ + Encounter Details +--------+ + + + + | Date | Type | Department | Care Team | Description | +--------+ + + + + | 02/03/ | Hospital | [facility] | Handy Anderson P, | | | 1993 - | Encounter | [facility] | DO [address] | | | | | GENERIC OP CONV DEPT | [address] [place], [place] | | | 02/04/ | | [address] | [address] | | | 1993 | | [place], [place] | | | | | | [address] | | | | | | [phone] | | | +--------+ + + + [...]
--- OUTSIDE RECORDS SUMMARY | ~2019-08-09 | XMS | Encounter Summary ---
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 Address: [address] [place] [address]. Please call [phone] for questions o r concerns. 2. Follow up with your PCP to review your hospital course and medication changes. Please call to schedule this appointment. Future Appointments Date & Time Provider Department Dept Phone Center 11/09/2014 9:30 AM Bart Graham Neurosurgery at [facility] [phone] Neurosurgery Discharging Physician: JAIME HOWARD MD Attending [...] 14 | | | | bedtime. 2 [id number] | | | | | | | [...] issues Jaime Howard MD Neurosurgery Resident Pager #[phone] MEDICATIONS Current Facility-Administered Medications Medication acetaminophen (TYLENOL) [...] as described in the r esident note. OWvSachin ta MD - 7:35 PM PDT 7NSICU ATTENDING NEUROINTENSIVIST PROGRESS NOTE Team Pager: [phone] Attendin -------- EVENING NOTE -------- Date:10/25/2014 Critical [...] s/s of infection # Bipolar: Restart Wellbutrin, Clarkrange, Duloxetine, Ziprasidone, and lorazepam (prn) # Lines: CVL (subclavian), matos, PIV - d/c matos Relevant Risks: This patient is currently at risk for the following: cerebral edema, hydroc ephalus, intracerebral hemorrhage and seizure; central line associated blood stream infectio n, DVT/Pulmonary embolism, ICU delirium and UTI. I spent 30 minutes actively involved in the care and management of this patient. Sachin Ward MD [facility] DEPARTMENT: [id number] ICU NEURO Place of Service:- Inpatient Date of Service: 10/25/2014 CSN: [id number] Suggested Modifier: None Suggested CPT: TO INSURANCE CLAIM APPROVER RELEVANT DATA: Last Vitals: BP 112/66 | [...] charting, and discussion with treatment decision maker. [facility] DEPARTMENT: [id number] CRITICAL CARE Place of Service: Inpatient Date of Service: 10/25/2014 CSN: [id number] Suggested Level of Care: 19441 - CRITICAL CARE, 1ST HOUR EACH DAY [...] -dexamethasone 4mg q6--slow taper ordered. -medication [employer]: Geodon 160mg qHS, tramadol 50mg q6hr [...] for [place] - Diet: Regular diet - [facility] bowel protocol - MIVF: Normal [...] ove assessment and plan. TORITO GONG, VALENTINA [facility] DEPARTMENT: [id number] ICU NEURO Place of Service:- Inpatient Date of Service: 10/25/2014 CSN: [id number] Suggested Modifier: None Suggested CPT: TO INSURANCE CLAIM APPROVER Kareen Martinez MD - 2014 6:49 PM [...] - 2014 6:19 PM PDT 7NSICU ATTENDING IT TECHNICIAN DAILY PROGRESS NOTE Team Pager: [phone] Attendin Date:2014 Critical Care Attending Physician: SACHIN [...] with the primary team and the consultants [facility]. (Relevant data is listed at the bottom of this note). CC / Hx / Last 24hr: s/p 1) Suboccipital craniectomy and C1 laminectomy 2) Resection of fo urth ventricular mass; Tium mesh cranioplasty Patient Active Problem List Diagnosis Neoplasm of brain PMH: Bipolar, anxiety, headaches , GERD, asthma Home meds: Ziprasidone, Tramadol, Topiramate, Lorazepam, Clarkrange, Lansoprazole, Dilaudid, Celecoxib, g abapentin, duloxetine, bupropion, [...] opioids: continue gabapentin # Bipolar: Restart Wellbutrin, Clarkrange, Duloxetine, Ziprasidone, and lorazepam (prn) # Lines: arterial line, CVL (subclavian), matos, PIV Relevant Risks: This patient is currently at risk for the following: cerebral edema, hy drocephalus, intracerebral hemorrhage and seizure; central line associated blood stream infe ction, DVT/Pulmonary embolism, ICU delirium and UTI. I spent 65 minutes actively involved in the care and management of this patient. Sachin Ward MD [facility] DEPARTMENT: [id number] ICU NEURO Place of Service:- Inpatient Date of Service: erEDICAL RECORD NUMBER [id number] CSN: [id number] Suggested Modifier: None Suggested CPT: TO INSURANCE CLAIM APPROVER RELEVANT DATA: Last Vitals: BP 139/80 | [...] | 60 - 99 mg/dL | [facility] - | | | GLUCOSE, | | [...] PROSPER | [address] | [place], [place] | | | LESLIE POINT OF CARE | [address] | [address] | | | TESTS | | | [...] PROSPER | [address] | [place], [place] | | | MALINA NELSON OF BEL | [address] | [address] | | | TESTS | | | [...] | + + + + + | [facility] | [address] | [place] [address] | | | SERVICES, CORE | PARK [...] | | | LABORATORY | | | M[place]ICAN | | | SERVICES, | | | [...] MDRD equation recommended by the | [facility] | | National Kidney Disease Education Program. [...] + + + + + | [facility] | [address] | [place] [address] | | | GABRIELLE MIRELES | KAYLEN [...] SALLYAM | [address] | [place], [place] | | | L[place]LIE POINT OF CARE | [address] | [address] | | | TESTS | | | [...] CHENG | [address] | [place], [place] | | | MALINA NELSON OF BEL | [address] | [address] | | | TESTS | | | [...] MARQUAM | [address] | [place], [place] | | | MALINA NELSON OF CARE | [address] | [address] | | | TESTS | | | [...] + + + + + | [facility] | [address] | [place] [address] | | | SERVICES, CORE | KAYLEN [...] | | | LABORATORY | | | MEXICAN | | | SERVICES, | | | [...] MDRD equation recommended by the | [facility] | | National Kidney Disease Education Program. [...] | + + + + + | [facility] | [address] | [place] [address] | | | [facility], GABRIELLE | [address] | | | [...] | 60 - 99 mg/dL | [facility] - | | | GLUCOSE, | | [...] CHENG | [address] | [place], [place] | | | [place]IE POINT OF CARE | [address] | [address] | | | TESTS | | | [...] PROSPER | [address] | [place], [place] | | | MALINA NELSON OF CARE | [address] | [address] | | | TESTS | | | [...] PROSPER | [address] | [place], [place] | | | MALINA NELSON OF BEL | [facility] | [address] | | | TESTS | | | [...] | 60 - 99 mg/dL | [facility] - | | | GLUCOSE, | | [...] CHENG | [address] | [place], [place] | | | [place] POINT OF CARE | [address] | [address] | | | TESTS | | | | + + + + + OPERATION RECORD (10/26/2014 9:22 AM PDT) + + | Transcriptions | + + | Bart Graham MD - 2014 10:30 PM PDT Date of Service: 2014 Attending | | Surgeon: Bart Graham MD Hand Umbrella Tipper(s): Brady Conroy MD, | | PhD. Preoperative [...] she was placed in the Bhagat head knitting machine fixer and flipped into | | the prone position on chest rolls. Her arms were tucked at her sides and all pressure | | points were carefully padded. We then registered the [employer] frameless stereotactic | | navigation system with [...] curette with Kerrison punches. We used a Odin dissector to | | carefully dissect the [...] were removed. She was removed from the Yoder head knitting machine fixer | | and flipped into the supine [...] 2014 | | 18:04:22DT: 2014 22:30:30Job #: [id number] | + + CAPILLARY BLOOD GLUCOSE (NO [...] SALLYAM | [address] | [place], [place] | | | MALINA NELSON OF BEL | [facility] | [address] | | | TESTS | | | [...] | 60 - 99 mg/dL | [facility] - | | | GLUCOSE, | | [...] CHENG | [address] | [place], [place] | | | L[place] POINT OF CARE | [address] | [address] | | | TESTS | | | [...] [facility] | [address] | [place] [address] | | | SERVICES, CORE | PARK [...] | | | LABORATORY | | | MEXICAN | | | SERVICES, | | | [...] | + + + + + | [facility] | [address] | [place] [address] | | | SERVICES, CORE | KAYLEN [...] MARQUAM | [address] | [place], [place] | | | L[place]IE POINT OF CARE | [address] | [address] | | | TESTS | | | [...] MARQUAM | [address] | [place], [place] | | | L[place]IE POINT OF CARE | [address] | [address] | | | TESTS | | | [...] + + + | MYRIAM CHENG | [address] | [place], [place] | | | MALINA NELSON OF BEL | [address] | [address] | | | TESTS | | | [...] MARQUAM | [address] | [place], [place] | | | L[place]IE POINT OF CARE | [address] | [address] | | | TESTS | | | [...] | + + + + + | [facility] | [address] | [place] [address] | | | SERVICES, SPECIAL | KAYLEN [...] | + + + + + | [facility] | [address] | [place] [address] | | | SERVICES, CORE | KAYLEN [...] | | | LABORATORY | | | MEXICAN | | | SERVICES, | | | [...] MDRD equation recommended by the | [facility] | | National Kidney Disease Education Program. [...] + + + + + | [facility] | [address] | [place] [address] | | | SERVICES, CORE | PARK [...] | | | | | | contrast. [id number] | | | | | | reformatted [...] +---------+ + + | [facility] DEPARTMENT OF | | | | | RADIOLOGY | | | | + +---------+ + + X-RAY PORTABLE CHEST 1 VIEW (2014 6:53 PM PDT) + + + + + + | Component | Value | Ref Range | Performed | Pathologist | | | | | At | Signature | + + + + + + | X-RAY | EXAM: [place] CHEST 1 VIEW | | | | [...] [facility] | [address] | [place] [address] | | | SERVICES, CORE | KAYLEN [...] | | | LABORATORY | | | MEXICAN | | | SERVICES, | | | | | | CORE | | + +---------+ + + + | EGFR NON | >60 | >60 mL/min | [facility] | | | -TNIY | | | LABORATORY | | | [...] | + + + + + | [facility] | [address] [facility] | [place] [address] | | | GABRIELLE MIRELES | KAYLEN [...] | + + + + + | [facility] | [address] | [place] [address] | | | SERVICES, CORE | [address] | | | + + + [...] + + + + + | [facility] | [address] | [place] [address] | | | SERVICESGABRIELLE | [address] [...] | + + + + + | [facility] | [address] | [place] [address] | | | SERVICES, CORE | PARK [...] PROSPER | [address] | [place], [place] | | | MALINA NELSON OF CARE | [address] | [address] | | | TESTS | | | [...] PROSPER | [address] | [place], [place] | | | MALINA NELSON OF BEL | [facility] | [address] | | | TESTS | | | [...] PROSPER | [address] | [place], [place] | | | MALINA NELSON OF CARE | [address] | [address] | | | TESTS | | | [...] CHENG | [address] | [place], [place] | | | MALINA NELSON OF BEL | [facility] | [address] | | | TESTS | | | [...] MARQUAM | [address] | [place], [place] | | | MALINA NELSON OF CARE | [facility] | [address] | | | TESTS | | | [...] MARQUAM | [address] | [place], [place] | | | MALINA NELSON OF BEL | [address] | [address] | | | TESTS | | | [...] PROSPER | [address] | [place], [place] | | | MALINA NELSON OF [facility] | [address] | [address] | | | TESTS | | | [...] + + + | MYRI[facility] CHENG | [address] | [place], [place] | | | MALINA NELSON OF [facility] | [address] | [address] | | | TESTS | | | [...] mass | | | | | | [id number] x 12 mm in | | | [...] [facility] | [address] | [place] [address] | | | SERVICES, | [address] [...] | + + + + + | [facility] | [address] [facility] | [place] [address] | | | SERVICES, | [address] | | | | TRANSFUSION MEDICINE | | | | + + + + + INTRAOPERATIVE NEURO MONITORING (2014) + + + | Narrative | Performed At | + + + | Patient Name: Mendoza Villegas Date of : 1970 Medical | | | Record Number: [id number] Date of Test: 2014 Place of | | | Service: IP Intra Op (95) [id number] - [id number] INTRAOPERATIVE NEURO | | | MONITORING History: [...] of | | | Neurology Suggested CPT: 61721 - IOM Remote x 3 hr(s) 37693 - | | | Short Latency EP's Upper AND Lower extremities 88767 - Central Motor | | | EP's Upper AND Lower extremities 36222 - EMG Cranial Bilateral - IOM | | | 81028 - Neuromuscular Junction Test Suggested Diagnosis: 237.5 [...] | + + + + + | [facility] | [address] | [place] [address] | | | PATHOLOGY | [address] [...] | | | | | NEEDED, Starting [facility] 10/25/14 at | | | | | [...] | | | | | NEEDED, Starting [facility] 10/25/14 | | PM PDT | | [...] | | | | at 1745, Until [place] 10/25/14 at | | | | | [...]
--- OUTSIDE RECORDS SUMMARY | ~2019-08-09 | XMS | Encounter Summary ---
Demographics + + + | Address | [address] | | | [place] [address] | + + + | Home Phone [...] Team Providers + +------+ + | Care Cub Reporter Name | Role | Phone | + [...] [address] | | | | | | [place], [place] | | | | | | [address] | | | +--------+ + + + [...]
--- OUTSIDE RECORDS SUMMARY | ~2019-08-09 | XMS | Encounter Summary ---
Demographics + + + | Address | [address] | | | [place] [address] | + + + | Home Phone [...] Team Providers + +------+ + | Care Host/Hostess Restaurant Name | Role | Phone | + [...] [place] | | | | | [address] | [address] | | | | | [phone] | [phone] | | | | | | | [...] | EXTERNAL | | | Morphology | [facility], [address] | | LAB | | | | [place] | | | | | | [address] | | | | + + + [...]
--- OUTSIDE RECORDS SUMMARY | ~2019-08-09 | XMS | Encounter Summary ---
Demographics + + + | Address | [address] | | | [place] [address] | + + + | Home Phone [...] Team Providers + +------+ + | Care Foundry Manager Name | Role | Phone | [...] Rd | | | | | | [place], [place] | | | | | | [address] | | | +--------+ + + + [...]
--- OUTSIDE RECORDS SUMMARY | ~2019-08-09 | XMS | Encounter Summary ---
Demographics + + + | Address | [address] | | | [place] [address] | + + + | Home Phone | | + + + | Preferred Language | Unknown | + + + | Marital Status | | + + + | Mormon Affiliation | LDS | + + + | Race | White | + + + | Ethnic Group | Not or | + + + Author + + + | Author | [facility] | + + + | Organization | [facility] | + + + | [...] Team Providers + +------+ + | Care Child'S Nurse Name | Role | Phone | [...] | | | | | Karis [place], | | | | | | [place] [address] | | | +--------+--------+ + + + [...]
--- OUTSIDE RECORDS SUMMARY | ~2019-08-09 | XMS | Encounter Summary ---
Demographics + + + | Address | [address] | | | [place] [address] | + + + | Home Phone [...] Team Providers + +------+ + | Care Neurological Surgeon Name | Role | Phone | + +------+ + PCP | Unavailable | + +------+ + Encounter Details +--------+ + + + + | Date | Type | Department | Care Team | Description | +--------+ + + + + | 10/26/ | Hospital | [facility] | Handy Anderson P, | | | 1994 | Encounter | [facility] | DO [address] | | | | | GENERIC OP CONV DEPT | [address] [place], [place] | | | | | [address] | [id number] | | | | | [place], [place] | | | | | | [address] | | | | | | [phone] | | | +--------+ + + + [...]
--- OUTSIDE RECORDS SUMMARY | ~2019-08-09 | XMS | Encounter Summary ---
Demographics + + + | Address | [address] | | | [place] [address] | + + + | Home Phone | | + + + | Preferred Language | Unknown | + + + | Marital Status | | + + + | Restoration Affiliation | 1027 | + + + | Race | Unknown | + + + | Ethnic Group | Unknown | + + + Author + + + | Author | [facility] | | | and [place] | + + + | Organization | [facility] [...] Team Providers + +------+ + | Care Timekeeping Supervisor Name | Role | Phone | [...] Provider Unknown | | | | | [address] | [phone] | | | | | [phone] | | | +--------+ + + + [...] [address]; | | | | | | [place] [address] | | | | + + + + + + | K | 4.1Comment: Testing | 3.5 - 4.9 | EXTERNAL | | | | performed at [facility] | mmol/L | LAB | | | | Health; [address]; | | | | | | [place] [address] | | | | + + + + + + | Cl | 105Comment: Testing | 99 - 109 mmol/L | EXTERNAL | | | | performed at [facility] | | LAB | | | | Health; [address]; | | | | | | [place] [address] | | | | + + + + + + | CO2 | 31Comment: Testing | 23 - 32 mmol/L | EXTERNAL | | | | performed at [facility] | | LAB | | | | Health; [address]; | | | | | | [place] [address] | | | | + + + + + + | Anion Gap | 9Comment: Testing | 5 - 20 mmol/L | EXTERNAL | | | | performed at [facility] | | LAB | | | | Health; [address]; | | | | | | [place] [address] | | | | + + + + + + | Glucose, | 91Comment: Testing | 65 - 99 mg/dL | EXTERNAL | | | Fasting | performed at [facility] | | LAB | | | | Health; [address]; | | | | | | [place] [address] | | | | + + + + + + | BUN | 14Comment: Testing | 8 - 25 mg/dL | EXTERNAL | | | | performed at [facility] | | LAB | | | | Health; [address]; | | | | | | [place] [address] | | | | + + + + + + | Creatinine | 0.8Comment: Testing | 0.50 - 1.00 | EXTERNAL | | | | performed at [facility] | mg/dL | LAB | | | | Health; [address]; | | | | | | [place] [address] | | | | + + + + + + | BUN/Creatin | 18Comment: Testing | | EXTERNAL | | | ine Ratio | performed at [facility] | | LAB | | | | Health; [address]; | | | | | | [place] [address] | | | | + + + + + + | Calcium | 9.4Comment: Testing | 8.5 - 10.2 | EXTERNAL | | | | performed at [facility] | mg/dL | LAB | | | | Health; [address]; | | | | | | [place] [address] | | | | + + + + + + | Protein, | 6.5Comment: Testing | 6.3 - 8.2 g/dL | EXTERNAL | | | Total | performed at [facility] | | LAB | | | | Health; [address]; | | | | | | [place] [address] | | | | + + + + + + | Albumin | 2.6 (L)Comment: Testing | 3.6 - 5.0 g/dL | EXTERNAL | | | | performed at [facility] | | LAB | | | | Health; [address]; | | | | | | [place] [address] | | | | + + + + + + | Globulin | 3.9Comment: Testing | 1.3 - 4.9 g/dL | EXTERNAL | | | | performed at [facility] | | LAB | | | | Health; [address]; | | | | | | [place] [address] | | | | + + + + + + | A/G Ratio | 0.7 (L)Comment: Testing | 1.0 - 2.4 | EXTERNAL | | | | performed at [facility] | | LAB | | | | Health; [address]; | | | | | | [place] [address] | | | | + + + + + + | Bilirubin | 0.2Comment: Testing | 0.1 - 1.5 mg/dL | EXTERNAL | | | Total | performed at [facility] | | LAB | | | | Health; [address]; | | | | | | [place] [address] | | | | + + + + + + | ALP, | 71Comment: Testing | 35 - 115 U/L | EXTERNAL | | | External | performed at [facility] | | LAB | | | | Health; [address]; | | | | | | [place] [address] | | | | + + + + + + | AST | 22Comment: Testing | 10 - 45 U/L | EXTERNAL | | | | performed at [facility] | | LAB | | | | Health; [address]; | | | | | | [place] [address] | | | | + + + + + + | ALT | 34Comment: Testing | 10 - 65 U/L | EXTERNAL | | | | performed at [facility] | | LAB | | | | Health; [address]; | | | | | | [place] [address] | | | | + + + [...] | | | | | | at [facility]; [address] | | | | | [address]; [place], [place] | | | | | | [address] | | | | + + + [...]
--- OUTSIDE RECORDS SUMMARY | ~2019-08-09 | XMS | Encounter Summary ---
Demographics + + + | Address | [address] | | | [place] [address] | + + + | Home Phone [...] Team Providers + +------+ + | Care Purifying Plant Operator Name | Role | Phone [...] | | | | Subependymom | [place] [address] | | | | | | a (HCC) | [address] | | | | | | Procedures | [address] | | | | | | MRI BRAIN | [place], [place] | | | | | | TUMOR | [address] | | | | | | EVALUATION | Phone: | | | | | | [facility] CONTRAST | [phone] | | | | | | | Fax: | | | | | | | [phone] | | +--------+--------+ + + + + Reason for Visit + + + | Reason | Comments | + + + | Follow-up visit | | + + + Encounter Details +--------+---------+ + + + | Date | Type | Department | Care Team | Description | +--------+---------+ + + + | 06/14/ | Office | Neurosurgery at | Cristopehr Mckinney MD | 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 She denies headaches currently. She does note [...] hours. Take 1 tablet by [facility] every 8 hours for 2 days. Take [...] also contact us to fax referral for [facility] in [facility]. 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
--- OUTSIDE RECORDS SUMMARY | ~2019-08-09 | XMS | Encounter Summary ---
Demographics + + + | Address | [address] | | | [place] [address] | + + + | Home Phone [...] Providers + +------+ + | Care Director Industrial Relations Name | Role | Phone | + [...] [place] | | | | | [address] | [address] | | | | | [phone] | [phone] | | | | | | | [...] | | | | | performed at [facility] | | | | | | [facility]; [facility]; | | | | | | [place] [address] | | | | + + + [...]
--- OUTSIDE RECORDS SUMMARY | ~2019-08-09 | XMS | Encounter Summary ---
Demographics + + + | Address | [address] | | | [place] [address] | + + + | Home Phone [...] Team Providers + +------+ + | Care Pipe Straightener Name | Role | Phone | + +------+ + PCP | Unavailable | + +------+ + Encounter Details +--------+ + + + + | Date | Type | Department | Care Team | Description | +--------+ + + + + | 12/25/ | Hospital | [facility] | John Doyle | | | 2007 | Encounter | MED CTR SLEEP | MD [address] | | | | | CENTER [address] | [facility] | | | | | [place] | [place] [address] | | | | | [address] | [phone] | | | | | [phone] | | | +--------+ + + + [...]
--- OUTSIDE RECORDS SUMMARY | ~2019-08-09 | XMS | Encounter Summary ---
Demographics + + + | Address | [address] | | | [place] [address] | + + + | Home Phone [...] Team Providers + +------+ + | Care Interior Systems Carpenter Name | Role | Phone | + +------+ + | Ashwini Ochoa NP | PCP | | + +------+ + Encounter Details +--------+ + + + + | Date | Type | Department | Care Team | Description | +--------+ + + + + | 03/06/ | Document-Sc | Health Information | Unknown . | | | 2013 | anned | Services [address] | | | | | | [address] | | | | | | Mailcode: [id number] | | | | | | [facility] | | | | | | [place], [place] | | | | | | [address] | | | | | | [phone] | | | +--------+ + + + [...]
--- OUTSIDE RECORDS SUMMARY | ~2019-08-09 | XMS | Encounter Summary ---
Demographics + + + | Address | [address] | | | [place] [address] | + + + | Home Phone [...] Team Providers + +------+ + | Care Accordion Tuner Name | Role | Phone | + +------+ + | Ronda Wade MD | PCP | | + +------+ + Encounter Details +--------+ + + + + | Date | Type | Department | Care Team | Description | +--------+ + + + + | 04/21/ | Abstract | [facility] | | | 2016 | | GASTROENTEROLOGY | [address] | | | | | [address] [place] | [place], [address] | | | | | [address] | [place] | | | | | [address] | [address] | | | | | [phone] | | | +--------+ + + + + Social History + +-------+ +--------+------+ | Tobacco Use | Types | Packs/Day | Years | Date | | | | | Used | | + +-------+ +--------+------+ | Never Smoker | | | | | + [...] | EXTERNAL LAB: CBC | Routin | 01/18/2017 | | Results for this | | | e | | | procedure are in the | | | | | | results section. | + +--------+ + + + | H. PYLORI ANTIBODY | Routin | 01/18/2017 | | Results for this | | SCREEN | e | | | procedure are in the | | | | | | results section. | + +--------+ + + + | OVA AND PARASITE | Routin | 01/18/2017 | | Results for this | | EXAMINATION | e | | | procedure are in the | | | | | | results section. | + +--------+ + + + | CBC WITH | Routin | 01/18/2017 | | Results for this | | DIFFERENTIAL | e | | | procedure are in the | | | | | | results section. | + +--------+ + + + | CULTURE, STOOL | Routin | 01/18/2017 | | Results for this | | | e | | | procedure are in the | | | | | | results section. | + +--------+ + + + | IMMUNOGLOBULIN, | Routin | 01/18/2017 | | Results for this | | PANEL, IGG AND IGM | e | | | procedure are in the | | AND IGA | | | | results section. | + +--------+ + + + | EXTERNAL LAB: BUN | Routin | 01/06/2017 | | Results for this | | | e | | | procedure are in the | | | | | | results section. | + +--------+ + + + | EXTERNAL LAB: | Routin | 01/06/2017 | | Results for this | | GLUCOSE | e | | | procedure are in the | | | | | | results section. | + +--------+ + + + | EXTERNAL LAB: YESSENIA | Routin | 01/06/2017 | | Results for this | | | e | | | procedure are in the | | | | | | results section. | + +--------+ + + + | EXTERNAL LAB: PEDRO PABLO | Routin | 01/06/2017 | | Results for this | | | e | | | procedure are in the | | | | | | results section. | + +--------+ + + + | EXTERNAL LAB: | Routin | 01/06/2017 | | Results for this | | ALKALINE PHOSPHATASE | e | | | procedure are in the | | | | | | results section. | + +--------+ + + + | EXTERNAL LAB: | Routin | 01/06/2017 | | Results for this | | BILIRUBIN, TOTAL | e | | | procedure are in the | | | | | | results section. | + +--------+ + + + | EXTERNAL LAB: | Routin | 01/06/2017 | | Results for this | | ALBUMIN | e | | | procedure are in the | | | | | | results section. | + +--------+ + + + | EXTERNAL LAB: | Routin | 01/06/2017 | | Results for this | | PROTEIN, TOTAL | e | | | procedure are in the | | | | | | results section. | + +--------+ + + + | EXTERNAL LAB: | Routin | 01/06/2017 | | Results for this | | CALCIUM | e | | | procedure are in the | | | | | | results section. | + +--------+ + + + | EXTERNAL LAB: CARBON | Routin | 01/06/2017 | | Results for this | | DIOXIDE | e | | | procedure are in the | | | | | | results section. | + +--------+ + + + | EXTERNAL LAB: | Routin | 01/06/2017 | | Results for this | | CHLORIDE | e | | | procedure are in the | | | | | | results section. | + +--------+ + + + | EXTERNAL LAB: | Routin | 01/06/2017 | | Results for this | | POTASSIUM | e | | | procedure are in the | | | | | | results section. | + +--------+ + + + | EXTERNAL LAB: SODIUM | Routin | 01/06/2017 | | Results for this | | | e | | | procedure are in the | | | | | | results section. | + +--------+ + + + | EXTERNAL LAB: | Routin | 01/06/2017 | | Results for this | | URINALYSIS | e | | | procedure are in the | | | | | | results section. | + +--------+ + + + | EXTERNAL LAB: CBC | Routin | 01/06/2017 | | Results for this | | | e | | | procedure are in the | | | | | | results section. | + +--------+ + + + | EXTERNAL LAB: TSH | Routin | 01/06/2017 | | Results for this | | | e | | | procedure are in the | | | | | | results section. | + +--------+ + + + | EXTERNAL LAB: | Routin | 01/06/2017 | | Results for this | | TRIGLYCERIDES | e | | | procedure are in the | | | | | | results section. | + +--------+ + + + | EXTERNAL LAB: | Routin | 01/06/2017 | | Results for this | | CHOLESTEROL, HDL | e | | | procedure are in the | | | | | | results section. | + +--------+ + + + | EXTERNAL LAB: | Routin | 01/06/2017 | | Results for this | | CHOLESTEROL, TOTAL | e | | | procedure are in the | | | | | | results section. | + +--------+ + + + | EXTERNAL LAB: EGFR | Routin | 01/06/2017 | | Results for this | | | e | | | procedure are in the | | | | | | results section. | + +--------+ + + + | EXTERNAL LAB: | Routin | 01/06/2017 | | Results for this | | CREATININE | e | | | procedure are in the | | | | | | results section. | + +--------+ + + + | LIPID PANEL | Routin | 01/06/2017 | | Results for this | | | e | | | procedure are in the | | | | | | results section. | + +--------+ + + + | URINALYSIS, REFLEX | Routin | 01/06/2017 | | Results for this | | MICROSCOPIC AND/OR | e | | | procedure are in the | | CULTURE | | | | results section. | + +--------+ + + + | CBC WITH | Routin | 01/06/2017 | | Results for this | | DIFFERENTIAL | e | | | procedure are in the | | | | | | results section. | + +--------+ + + + | HEMOGLOBIN A1C | Routin | 01/06/2017 | | Results for this | | | e | | | procedure are in the | | | | | | results section. | + +--------+ + + + | COMPREHENSIVE | Routin | 01/06/2017 | | Results for this | | METABOLIC PANEL | e | | | procedure are in the | | | | | | results section. | + +--------+ + + + documented in this encounter Results Ova and Parasite Examination (01/18/2017) + + + + + + | Component | Value | Ref Range | Performed | Pathologist | | | | | At | Signature | + + + + + + | Result | 01-19-17 no ova and | | | | | | parasites seen. | | | | + + + + + + + + | Specimen | + + | Stool - Stool | | specimen (specimen) | + + Culture, Stool (01/18/2017) + + + + + + | Component | Value | Ref Range | Performed | Pathologist | | | | | At | Signature | + + + + + + | Result | 01-19-17 no growth of | | | | | | normal enteric | | | | | | gram-negative bacilli | | | | | | after overnight | | | | | | incubation. | | | | + + + + + + | Result | 01-20-17 moderate growth | | | | | | normal enteric dennise. | | | | + + + + + + | Result | 01-21-17 no change in | | | | | | growth. no salmonella, | | | | | | shigella, escherichia | | | | | | coli O157, | | | | | | campylobacter, or | | | | | | yersinia isolated. not | | | | | | specifically tested for | | | | | | other enteric pathogens. | | | | + + + + + + + + | Specimen | + + | Stool - Stool | | specimen (specimen) | + + CBC with Differential (01/18/2017) + +-------+ + + + | Component | Value | Ref Range | Performed | Pathologist | | | | | At | Signature | + +-------+ + + + | MCH | 29.0 | 26.0 - 33.0 pg | | | + +-------+ + + + | MCHC | 33.0 | 30.0 - 36.0 % | | | + +-------+ + + + | Basophils % | 0.6 | 0 - 2 | | | + +-------+ + + + + + | Specimen | + + | Blood | + + External Lab: CBC (01/18/2017) + + + + + + | Component | Value | Ref Range | Performed | Pathologist | | | | | At | Signature | + + + + + + | WBC, | 15.8 (A) | 4.5 - 11 | EXTERNAL | | | External | | | LAB | | + + + + + + | HGB, | 14 | 12 - 16 | EXTERNAL | | | External | | | LAB | | + + + + + + | HCT, | 42 | 35 - 45 | EXTERNAL | | | External | | | LAB | | + + + + + + | PLT, | 396 | 140 - 440 | EXTERNAL | | | External | | | LAB | | + + + + + + | Neutrophils | 69.4 | 39 - 80 | EXTERNAL | | | %, | | | LAB | | | External | | | | | + + + + + + | Lymphocytes | 22.6 (A) | 24 - 44 | EXTERNAL | | | %, | | | LAB | | | External | | | | | + + + + + + | Monocytes | 6.4 | 0 - 12 | EXTERNAL | | | %, External | | | LAB | | + + + + + + | Eosinophils | 1 | 0 - 6 | EXTERNAL | | | %, | | | LAB | | | External | | | | | + + + + + + | RBC, | 4.78 | 3.8 - 5.1 | EXTERNAL | | | External | | | LAB | | + + + + + + | MCV, | 88 | 81 - 99 | EXTERNAL | | | External | | | LAB | | + + + + + + | RDW, | 16.2 (A) | 10.5 - 15 | EXTERNAL | | | External | | | LAB | | + + + + + + + +---------+ + + | Performing | Address | City/State/Zipcode | Phone Number | | Organization | | | | + +---------+ + + | EXTERNAL LAB | | | | + +---------+ + + H. pylori Antibody Screen (01/18/2017) + + + + + + | Component | Value | Ref Range | Performed | Pathologist | | | | | At | Signature | + + + + + + | H PYLORI | Negative | | | | | IGG | | | | | + + + + + + + + | Specimen | + + | Blood | + + Immunoglobulin, Panel, IgG and IgM and IgA (01/18/2017) + +-------+ + + + | Component | Value | Ref Range | Performed | Pathologist | | | | | At | Signature | + +-------+ + + + | Immunoglobu | 763 | 664 - 1,411 | | | | khushi IgG | | | | | + +-------+ + + + | Immunoglobu | 200 | 66 - 433 | | | | khushi IgA | | | | | + +-------+ + + + | Immunoglobu | 117 | 47 - 248 | | | | khushi IgM | | | | | + +-------+ + + + + + | Specimen | + + | Blood | + + Urinalysis, Reflex Microscopic and/or Culture (01/06/2017) + + + + + + | Component | Value | Ref Range | Performed | Pathologist | | | | | At | Signature | + + + + + + | COLLECTION | Clean catch | | | | | METHOD 1 | | | | | + + + + + + | Color | straw | | | | + + + + + + | Clarity | Clear | | | | + + + + + + | Bilirubin, | Negative | Negative | | | | Urine | | | | | + + + + + + | Nitrite, | Negative | Negative | | | | Urine | | | | | + + + + + + | Urobilinoge | Normal | < 0.2 mg/dL, | | | | n, Urine | | 1.0 mg/dL, 4.0 | | | | | | mg/dL, Normal, | | | | | | 1.0 E.U./dL, | | | | | | 0.2 E.U./dL, | | | | | | 0.2 mg/dL, | | | | | | Negative, 1 | | | | | | mg/dL, <2.0 | | | | | | mg/dL | | | + + + + + + | CASTS | Negative | | | | + + + + + + | WBC, UA | 0 | 0 - 4 | | | + + + + + + | Squamous | 2+ | | | | | epithelial, | | | | | | UA, POC | | | | | + + + + + + | CRYSTAL UA | Negative | | | | + + + + + + | Bacteria, | Negative | | | | | UA | | | | | + + + + + + + + | Specimen | + + | Urine | + + CBC with Differential (01/06/2017) + +-------+ + + + | Component | Value | Ref Range | Performed | Pathologist | | | | | At | Signature | + +-------+ + + + | MCH | 29.0 | 26.0 - 33.0 pg | | | + +-------+ + + + | MCHC | 33.0 | 30.0 - 36.0 % | | | + +-------+ + + + | Basophils % | 0.4 | 0 - 2 | | | + +-------+ + + + + + | Specimen | + + | Blood | + + Comprehensive Metabolic Panel (01/06/2017) + +-------+ + + + | Component | Value | Ref Range | Performed | Pathologist | | | | | At | Signature | + +-------+ + + + | Anion Gap | 20 | 7 - 21 mmol/L | | | + +-------+ + + + | BUN/Creatin | 11.6 | 6 - 28.6 | | | | ine Ratio | | | | | + +-------+ + + + | Globulin | 2.8 | 1.8 - 3.5 | | | + +-------+ + + + | Albumin/Albina | 1.4 | 1.1 - 2.4 | | | | bulin Ratio | | | | | + +-------+ + + + + + | Specimen | + + | Blood | + + Lipid Panel (01/06/2017) + +---------+ + + + | Component | Value | Ref Range | Performed | Pathologist | | | | | At | Signature | + +---------+ + + + | Non HDL | 237 (A) | 0 - 130 | | | | Chol. | | | | | | (LDL+VLDL) | | | | | + +---------+ + + + | Chol/HDL | 5.4 (A) | 0.0 - 4.4 | | | | Ratio | | | | | + +---------+ + + + + + | Specimen | + + | Blood | + + Hemoglobin A1C (01/06/2017) + + + + + + | Component | Value | Ref Range | Performed | Pathologist | | | | | At | Signature | + + + + + + | Hemoglobin | 6.1Comment: est avg | | EXTERNAL | | | A1c, | glucose 128 | | LAB | | | external | | | | | + + + + + + + + | Specimen | + + | Blood | + + + +---------+ + + | Performing | Address | City/State/Zipcode | Phone Number | | Organization | | | | + +---------+ + + | EXTERNAL LAB | | | | + +---------+ + + External Lab: LARS (01/06/2017) + +-------+ + + + | Component | Value | Ref Range | Performed | Pathologist | | | | | At | Signature | + +-------+ + + + | BUN, | 8 | 6 - 23 | EXTERNAL | | | External | | | LAB | | + +-------+ + + + + +---------+ + + | Performing | Address | City/State/Zipcode | Phone Number | | Organization | | | | + +---------+ + + | EXTERNAL LAB | | | | + +---------+ + + External Lab: Glucose (01/06/2017) + +---------+ + + + | Component | Value | Ref Range | Performed | Pathologist | | | | | At | Signature | + +---------+ + + + | Glucose, | 117 (A) | 70 - 100 | EXTERNAL | | | External | | | LAB | | + +---------+ + + + + +---------+ + + | Performing | Address | City/State/Zipcode | Phone Number | | Organization | | | | + +---------+ + + | EXTERNAL LAB | | | | + +---------+ + + External Lab: ALT (01/06/2017) + +-------+ + + + | Component | Value | Ref Range | Performed | Pathologist | | | | | At | Signature | + +-------+ + + + | ALT, | 17 | 7 - 52 | EXTERNAL | | | External | | | LAB | | + +-------+ + + + + +---------+ + + | Performing | Address | City/State/Zipcode | Phone Number | | Organization | | | | + +---------+ + + | EXTERNAL LAB | | | | + +---------+ + + External Lab: AST (01/06/2017) + +-------+ + + + | Component | Value | Ref Range | Performed | Pathologist | | | | | At | Signature | + +-------+ + + + | AST, | 18 | 13 - 39 | EXTERNAL | | | External | | | LAB | | + +-------+ + + + + +---------+ + + | Performing | Address | City/State/Zipcode | Phone Number | | Organization | | | | + +---------+ + + | EXTERNAL LAB | | | | + +---------+ + + External Lab: Alkaline Phosphatase (01/06/2017) + +-------+ + + + | Component | Value | Ref Range | Performed | Pathologist | | | | | At | Signature | + +-------+ + + + | ALP, | 83 | 31 - 130 | EXTERNAL | | | External | | | LAB | | + +-------+ + + + + +---------+ + + | Performing | Address | City/State/Zipcode | Phone Number | | Organization | | | | + +---------+ + + | EXTERNAL LAB | | | | + +---------+ + + External Lab: Bilirubin, Total (01/06/2017) + +-------+ + + + | Component | Value | Ref Range | Performed | Pathologist | | | | | At | Signature | + +-------+ + + + | Bilirubin, | 0.3 | 0 - 1.2 | EXTERNAL | | | Total, | | | LAB | | | External | | | | | + +-------+ + + + + +---------+ + + | Performing | Address | City/State/Zipcode | Phone Number | | Organization | | | | + +---------+ + + | EXTERNAL LAB | | | | + +---------+ + + External Lab: Albumin (01/06/2017) + +-------+ + + + | Component | Value | Ref Range | Performed | Pathologist | | | | | At | Signature | + +-------+ + + + | Albumin, | 4 | 3.5 - 5 | EXTERNAL | | | External | | | LAB | | + +-------+ + + + + +---------+ + + | Performing | Address | City/State/Zipcode | Phone Number | | Organization | | | | + +---------+ + + | EXTERNAL LAB | | | | + +---------+ + + External Lab: Protein, Total (01/06/2017) + +-------+ + + + | Component | Value | Ref Range | Performed | Pathologist | | | | | At | Signature | + +-------+ + + + | Protein, | 6.8 | 6 - 8 | EXTERNAL | | | Total, | | | LAB | | | External | | | | | + +-------+ + + + + +---------+ + + | Performing | Address | City/State/Zipcode | Phone Number | | Organization | | | | + +---------+ + + | EXTERNAL LAB | | | | + +---------+ + + External Lab: Calcium (01/06/2017) + +-------+ + + + | Component | Value | Ref Range | Performed | Pathologist | | | | | At | Signature | + +-------+ + + + | Calcium, | 9.8 | 8.4 - 10.2 | EXTERNAL | | | External | | | LAB | | + +-------+ + + + + +---------+ + + | Performing | Address | City/State/Zipcode | Phone Number | | Organization | | | | + +---------+ + + | EXTERNAL LAB | | | | + +---------+ + + External Lab: Carbon Dioxide (01/06/2017) + +-------+ + + + | Component | Value | Ref Range | Performed | Pathologist | | | | | At | Signature | + +-------+ + + + | Carbon | 20 | 19 - 31 | EXTERNAL | | | Dioxide, | | | LAB | | | External | | | | | + +-------+ + + + + +---------+ + + | Performing | Address | City/State/Zipcode | Phone Number | | Organization | | | | + +---------+ + + | EXTERNAL LAB | | | | + +---------+ + + External Lab: Chloride (01/06/2017) + +-------+ + + + | Component | Value | Ref Range | Performed | Pathologist | | | | | At | Signature | + +-------+ + + + | Chloride, | 103 | 95 - 112 | EXTERNAL | | | External | | | LAB | | + +-------+ + + + + +---------+ + + | Performing | Address | City/State/Zipcode | Phone Number | | Organization | | | | + +---------+ + + | EXTERNAL LAB | | | | + +---------+ + + External Lab: Potassium (01/06/2017) + +-------+ + + + | Component | Value | Ref Range | Performed | Pathologist | | | | | At | Signature | + +-------+ + + + | Potassium, | 4.4 | 3.6 - 5.1 | EXTERNAL | | | External | | | LAB | | + +-------+ + + + + +---------+ + + | Performing | Address | City/State/Zipcode | Phone Number | | Organization | | | | + +---------+ + + | EXTERNAL LAB | | | | + +---------+ + + External Lab: Sodium (01/06/2017) + +-------+ + + + | Component | Value | Ref Range | Performed | Pathologist | | | | | At | Signature | + +-------+ + + + | Sodium, | 139 | 132 - 143 | EXTERNAL | | | External | | | LAB | | + +-------+ + + + + +---------+ + + | Performing | Address | City/State/Zipcode | Phone Number | | Organization | | | | + +---------+ + + | EXTERNAL LAB | | | | + +---------+ + + External Lab: Urinalysis (01/06/2017) + + + + + + | Component | Value | Ref Range | Performed | Pathologist | | | | | At | Signature | + + + + + + | UA Blood, | Negative | | EXTERNAL | | | External | | | LAB | | + + + + + + | UA Glucose, | Normal | | EXTERNAL | | | External | | | LAB | | + + + + + + | UA Ketones, | Negative | | EXTERNAL | | | External | | | LAB | | + + + + + + | UA Ph, | 5 | 5 - 9 | EXTERNAL | | | External | | | LAB | | + + + + + + | UA | Negative | | EXTERNAL | | | Proteins, | | | LAB | | | External | | | | | + + + + + + | UA RBC, | 0 | 0 - 4 | EXTERNAL | | | External | | | LAB | | + + + + + + | UA Specific | 1.019 | 1.005 - 1.03 | EXTERNAL | | | Ocate, | | | LAB | | | External | | | | | + + + + + + | UA | Negative | | EXTERNAL | | | Leukocyte | | | LAB | | | Esterase, | | | | | | External | | | | | + + + + + + + +---------+ + + | Performing | Address | City/State/Zipcode | Phone Number | | Organization | | | | + +---------+ + + | EXTERNAL LAB | | | | + +---------+ + + External Lab: CBC (01/06/2017) + + + + + + | Component | Value | Ref Range | Performed | Pathologist | | | | | At | Signature | + + + + + + | WBC, | 11.7 (A) | 4.5 - 11 | EXTERNAL | | | External | | | LAB | | + + + + + + | HGB, | 15.7 | 12 - 16 | EXTERNAL | | | External | | | LAB | | + + + + + + | HCT, | 48 (A) | 35 - 45 | EXTERNAL | | | External | | | LAB | | + + + + + + | PLT, | 352 | 140 - 440 | EXTERNAL | | | External | | | LAB | | + + + + + + | Neutrophils | 67.9 | 39 - 80 | EXTERNAL | | | %, | | | LAB | | | External | | | | | + + + + + + | Lymphocytes | 25.6 | 24 - 44 | EXTERNAL | | | %, | | | LAB | | | External | | | | | + + + + + + | Monocytes | 4.8 | 0 - 12 | EXTERNAL | | | %, External | | | LAB | | + + + + + + | Eosinophils | 1.3 | 0 - 6 | EXTERNAL | | | %, | | | LAB | | | External | | | | | + + + + + + | RBC, | 5.42 (A) | 3.8 - 5.1 | EXTERNAL | | | External | | | LAB | | + + + + + + | MCV, | 89 | 81 - 99 | EXTERNAL | | | External | | | LAB | | + + + + + + | RDW, | 16.5 (A) | 10.5 - 15 | EXTERNAL | | | External | | | LAB | | + + + + + + + +---------+ + + | Performing | Address | City/State/Zipcode | Phone Number | | Organization | | | | + +---------+ + + | EXTERNAL LAB | | | | + +---------+ + + External Lab: TSH (01/06/2017) + + + + + + | Component | Value | Ref Range | Performed | Pathologist | | | | | At | Signature | + + + + + + | TSH, | 0.763Comment: 3rd | 0.27 - 4.2 | EXTERNAL | | | External | generation | | LAB | | + + + + + + + + | Specimen | + + | Blood | + + + +---------+ + + | Performing | Address | City/State/Zipcode | Phone Number | | Organization | | | | + +---------+ + + | EXTERNAL LAB | | | | + +---------+ + + External Lab: Triglycerides (01/06/2017) + +---------+ + + + | Component | Value | Ref Range | Performed | Pathologist | | | | | At | Signature | + +---------+ + + + | Triglycerid | 410 (A) | 30 - 150 | EXTERNAL | | | es, | | | LAB | | | External | | | | | + +---------+ + + + + + | Specimen | + + | Blood | + + + +---------+ + + | Performing | Address | City/State/Zipcode | Phone Number | | Organization | | | | + +---------+ + + | EXTERNAL LAB | | | | + +---------+ + + External Lab: Cholesterol, HDL (01/06/2017) + +-------+ + + + | Component | Value | Ref Range | Performed | Pathologist | | | | | At | Signature | + +-------+ + + + | HDL | 53.5 | 40 - 9,999 | EXTERNAL | | | Cholesterol | | mg/dl | LAB | | | , External | | | | | + +-------+ + + + + + | Specimen | + + | Blood | + + + +---------+ + + | Performing | Address | City/State/Zipcode | Phone Number | | Organization | | | | + +---------+ + + | EXTERNAL LAB | | | | + +---------+ + + External Lab: Cholesterol, Total (01/06/2017) + +---------+ + + + | Component | Value | Ref Range | Performed | Pathologist | | | | | At | Signature | + +---------+ + + + | Cholesterol | 290 (A) | 0 - 200 mg/dl | EXTERNAL | | | , Total, | | | LAB | | | External | | | | | + +---------+ + + + + + | Specimen | + + | Blood | + + + +---------+ + + | Performing | Address | City/State/Zipcode | Phone Number | | Organization | | | | + +---------+ + + | EXTERNAL LAB | | | | + +---------+ + + External Lab: eGFR (01/06/2017) + +-------+ + + + | Component | Value | Ref Range | Performed | Pathologist | | | | | At | Signature | + +-------+ + + + | eGFR, | >60 | 60 - 99,999 | EXTERNAL | | | External | | | LAB | | + +-------+ + + + + + | Specimen | + + | Blood | + + + +---------+ + + | Performing | Address | City/State/Zipcode | Phone Number | | Organization | | | | + +---------+ + + | EXTERNAL LAB | | | | + +---------+ + + External Lab: Creatinine (01/06/2017) + + + + + + | Component | Value | Ref Range | Performed | Pathologist | | | | | At | Signature | + + + + + + | Creatinine, | 0.39 (A) | 0.6 - 1.35 | EXTERNAL | | | External | | | LAB | | + + + + + + + + | Specimen | + + | Blood | + + + +---------+ + + | Performing | Address | City/State/Zipcode | Phone Number | | Organization | | | | + +---------+ + + | EXTERNAL LAB | | | | + +---------+ + + documented in this encounter Visit Diagnoses Not on filedocumented in this encounter"
--- OUTSIDE RECORDS SUMMARY | ~2019-08-09 | XMS | Encounter Summary ---
Demographics + + + | Address | [address] | | | [place] [address] | + + + | Home Phone [...] Providers + +------+ + | Care Rivet Machine Operator Name | Role | Phone [...] MRI Results | | 2017 | | [facility] [address] | [address] | | | | | Ave Mailcode: CH8N | [place], [place] | | | | | [facility] | [address] | | | | | and [place], | [phone] | | | | | [facility] | | | | | | [place], [place] | | | | | | [address] | | | | | | [phone] | | | +--------+ + + + [...]
--- OUTSIDE RECORDS SUMMARY | ~2019-08-09 | XMS | Encounter Summary ---
Demographics + + + | Address | [address] | | | [place] [address] | + + + | Home Phone [...] Team Providers + +------+ + | Care Transcription Typist Name | Role | Phone | + [...] Board | | 2015 | on | [facility] [address] | ,PhD [address] | Recommendation | | | | [address]any Mailcode: [id number] | [facility] | | | | | [facility] | [place], [place] | | | | | and [place], | [address] | | | | | [facility] | [phone] | | | | | [place], [place] | | | | | | [address] | | | | | | [phone] | | | +--------+ + + + [...]
--- OUTSIDE RECORDS SUMMARY | ~2019-08-09 | XMS | Encounter Summary ---
Demographics + + + | Address | [address] | | | [place] [address] | + + + | Home Phone [...] Providers + +------+ + | Care Interior Wirer Name | Role | Phone | + +------+ + PCP | Unavailable | + +------+ + Encounter Details +--------+ + + + + | Date | Type | Department | Care Team | Description | +--------+ + + + + | 12/24/ | Hospital | [facility] | John Doyle | | | 2007 | Encounter | MED CTR SLEEP | MD [place] | | | | | CENTER [address] | [facility] | | | | | [place] | [place] [address] | | | | | [address] | [phone] | | | | | [phone] | | | +--------+ + + + [...]
--- OUTSIDE RECORDS SUMMARY | ~2019-08-09 | XMS | Encounter Summary ---
Demographics + + + | Address | [address] | | | [place] [address] | + + + | Home Phone | | + + + | Preferred Language | Unknown | + + + | Marital Status | | + + + | Protestant Affiliation | 1027 | + + + [...] Team Providers + +------+ + | Care Telephone Clerk Name | Role | Phone | [...] Provider Unknown | | | | | [place] | | | | | | [address] | (Fax) | | | | | [phone] | | | +--------+ + + + [...] + + | Juan Stahl - 03/17/2019 4:44 PM PDT This is a non-reportable procedure | | without a radiologist report and isused for image storage only | + + documented in this encounter Visit Diagnoses + + | Diagnosis | + + | Pain Generalized pain | + + documented in this encounter"
--- OUTSIDE RECORDS SUMMARY | ~2019-08-09 | XMS | Encounter Summary ---
Demographics + + + | Address | [address] | | | [place] [address] | + + + | Home Phone [...] Team Providers + +------+ + | Care Program Director Substance Abuse Name | Role | Phone | + [...] Rd | | | | | | [place], [place] | | | | | | [address] | | | +--------+ + + + [...]
--- OUTSIDE RECORDS SUMMARY | ~2019-08-09 | XMS | Encounter Summary ---
Demographics + + + | Address | [address] | | | [place] [address] | + + + | Home Phone [...] Team Providers + +------+ + | Care Milk Drying Machine Operator Name | Role | Phone [...] | brain (HCC) | [address] | [facility] | | | | | Procedures | [facility] | Rd | | | | | MRI BRAIN | Rd | Mailcode: | | | | | [address] - | [place], [place] | [address] | | | | | FRAMELESS | [address] | [place] | | | | | STEREOTATIC | Phone: | Research | | | | | ONLY ID MRI | [phone] | [place] | | | | | BRAIN | Fax: | [place], [place] | | | | | CONTRAST | [phone] | [address] | | | | | | | Phone: | | | | | | | [phone] | | | | | | | Fax: | | | | | | | [phone] | +--------+--------+ + + + + Reason [...] Order | | 2015 | on | [facility] [address] | [address] | | | | | Ave Mailcode: CH8N | [place], [place] | | | | | [facility] | [address] | | | | | and Healing, | [phone] | | | | | [facility] | | | | | | [place], [place] | | | | | | [address] | | | | | | [phone] | | | +--------+ + + + [...]
--- OUTSIDE RECORDS SUMMARY | ~2019-08-09 | XMS | Encounter Summary ---
Demographics + + + | Address | [address] | | | [place] [address] | + + + | Home Phone [...] Providers + +------+ + | Care Sales Relationship Manager Name | Role | Phone | + +------+ + PCP | Unavailable | + +------+ + Encounter Details +--------+ + + + + | Date | Type | Department | Care Team | Description | +--------+ + + + + | 01/06/ | Hospital | [facility] | Handy Anderson P, | | | 1994 | Encounter | [facility] | DO [address] | | | | | GENERIC OP CONV DEPT | RD [place], [place] | | | | | [address] | [id number] | | | | | [place], [place] | | | | | | [address] | | | | | | [phone] | | | +--------+ + + + [...]
--- OUTSIDE RECORDS SUMMARY | ~2019-08-09 | XMS | Encounter Summary ---
Demographics + + + | Address | [address] | | | [place] [address] | + + + | Home Phone [...] Team Providers + +------+ + | Care Laundry Routeman Name | Role | Phone | + +------+ + PCP | Unavailable | + +------+ + Encounter Details +--------+ + + + + | Date | Type | Department | Care Team | Description | +--------+ + + + + | 11/11/ | Hospital | [facility] | Handy Anderson P, | | | 1994 | Encounter | [facility] | DO [address] | | | | | GENERIC OP CONV DEPT | RD [place], [place] | | | | | [address] | [id number] | | | | | [place], [place] | | | | | | [address] | | | | | | [phone] | | | +--------+ + + + [...]
--- OUTSIDE RECORDS SUMMARY | ~2019-08-09 | XMS | Encounter Summary ---
Demographics + + + | Address | [address] | | | [place] [address] | + + + | Home Phone [...] Providers + +------+ + | Care Park Attendant Name | Role | Phone | + +------+ + PCP | Unavailable | + +------+ + Encounter Details +--------+ + + + + | Date | Type | Department | Care Team | Description | +--------+ + + + + | 02/03/ | Hospital | [facility] | Handy Anderson P, | | | 1994 - | Encounter | [facility] | DO [address] | | | | | GENERIC OP CONV DEPT | [address] [place], [place] | | | 02/04/ | | [address] | [address] | | | 1993 | | [place], [place] | | | | | | [address] | | | | | | [phone] | | | +--------+ + + + [...]
--- OUTSIDE RECORDS SUMMARY | ~2019-08-09 | XMS | Encounter Summary ---
Demographics + + + | Address | [address] | | | [place] [address] | + + + | Home Phone [...] Team Providers + +------+ + | Care Embroidery Cutter Name | Role | Phone | + +------+ + PCP | Unavailable | + +------+ + Encounter Details +--------+ + + + + | Date | Type | Department | Care Team | Description | +--------+ + + + + | 09/05/ | Hospital | [facility] | Handy Anderson P, | | | 1994 | Encounter | [facility] | DO [address] | | | | | GENERIC OP CONV DEPT | RD [place], [place] | | | | | [address] | [id number] | | | | | [place], [place] | | | | | | [address] | | | | | | [phone] | | | +--------+ + + + [...]
--- OUTSIDE RECORDS SUMMARY | ~2019-08-09 | XMS | Encounter Summary ---
Demographics + + + | Address | [address] | | | [place] [address] | + + + | Home Phone | | + + + | Preferred Language | Unknown | + + + | Marital Status | | + + + | Tenriism Affiliation | 1027 | + + + | Race | Unknown | + + + | Ethnic Group | Unknown | + + + Author + + + | Author | [facility] | | | and [place] | + + + | Organization | [facility] | | | [...] Team Providers + +------+ + | Care Infrastructure Analyst Name | Role | Phone | [...] Provider Unknown | | | | | [place] | | | | | | [address] | (Fax) | | | | | [phone] | | | +--------+ + + + [...]
--- OUTSIDE RECORDS SUMMARY | ~2019-08-09 | XMS | Encounter Summary ---
Demographics + + + | Address | [address] | | | [place] [address] | + + + | Home Phone [...] Team Providers + +------+ + | Care Reeler Operator Name | Role | Phone | + +------+ + | Ashwini Ochoa NP | PCP | | + +------+ + Encounter Details +--------+ + + + + | Date | Type | Department | Care Team | Description | +--------+ + + + + | 11/10/ | Telephone | Neurosurgery at | Shar [place], | | | 2014 | | [facility] [address] | [address] | | | | | [address] Mailcode: CH8N | [facility] | | | | | [facility] | [place], [place] | | | | | and [place], | [address] | | | | | [facility] | [phone] | | | | | Floor [place], [place] | | | | | | [address] | | | | | | [phone] | | | +--------+ + + + [...]
--- OUTSIDE RECORDS SUMMARY | ~2019-08-09 | XMS | Encounter Summary ---
Demographics + + + | Address | [address] | | | [place] [address] | + + + | Home Phone [...] Providers + +------+ + | Care Milk Route Deliverer Name | Role | Phone | + +------+ + | Ronda Wade MD | PCP | | + +------+ + Encounter Details +--------+ + + + + | Date | Type | Department | Care Team | Description | +--------+ + + + + | 04/21/ | Abstract | [facility] [place] | [facility] | [facility] | | GASTROENTEROLOGY | FAISAL [address] | | | | | [address] [place] | [place], [address] | | | | | [address] | [place] | | | | | [address] | [address] | | | | | [phone] | | | +--------+ + + + [...] - 1.03 | EXTERNAL | | | [place], | | | LAB | | | [...]
--- OUTSIDE RECORDS SUMMARY | ~2019-08-09 | XMS | Encounter Summary ---
Demographics + + + | Address | [address] | | | [place] [address] | + + + | Home Phone [...] Team Providers + +------+ + | Care Power Plant Superintendent Name | Role | Phone | [...] | | 2014 | | [facility] [address] | [address] [place] | | | | | [address] Mailcode: CH8N | [place], [place] | | | | | [facility] | [address] | | | | | and [place], | [phone] | | | | | [place] [address] | | | | | | [place], [place] | | | | | | [address] | | | | | | [phone] | | | +--------+ + + + [...]
--- OUTSIDE RECORDS SUMMARY | ~2019-08-09 | XMS | Encounter Summary ---
Demographics + + + | Address | [address] | | | [place] [address] | + + + | Home Phone | | + + + | Preferred Language | Unknown | + + + | Marital Status | | + + + | Oriental Orthodox Affiliation | 1027 | + + + | Race | Unknown | + + + | Ethnic Group | Unknown | + + + Author + + + | Author | [facility] | | | and [place] | + + + | Organization | [facility] | | [...] Providers + +------+ + | Care Medical Oncologist Name | Role | Phone | + +------+ + PCP | Unavailable | + +------+ + Encounter Details +--------+ + + + + | Date | Type | Department | Care Team | Description | +--------+ + + + + | 07/15/ | Hospital | [facility] | Fiordaliza Walls | | | 1994 | Encounter | [facility] | [address] | | | | | GENERIC OP CONV DEPT | [place] [address] | | | | | [address] | [phone] | | | | | [place], [place] | | | | | | [address] | | | | | | [phone] | | | +--------+ + + + [...]
--- OUTSIDE RECORDS SUMMARY | ~2019-08-09 | XMS | Encounter Summary ---
Demographics + + + | Address | [address] | | | [place] [address] | + + + | Home Phone | | + + + | Preferred Language | Unknown | + + + | Marital Status | | + + + | Judaism Affiliation | 1027 | + + + | Race | Unknown | + + + | Ethnic Group | Unknown | + + + Author + + + | Author | [facility] | | | and [place] | + + + | Organization | [facility] | | | and [...] Team Providers + +------+ + | Care Bathing Suit Maker Name | Role | Phone | + +------+ + PCP | Unavailable | + +------+ + Encounter Details +--------+ + + + + | Date | Type | Department | Care Team | Description | +--------+ + + + + | 10/02/ | Hospital | [facility] | Handy Anderson P, | | | 1994 | Encounter | [facility] | DO [address] | | | | | GENERIC OP CONV DEPT | RD [place], [place] | | | | | [address] | [address] | | | | | [place], [place] | | | | | | [address] | Sterling Davis MD | | | | | [phone] | [address] [facility] | | | | | | MAIN LEVEL [place], | | | | | | [place] [address] | | | | | | [phone] | | | | | | | [...]
--- OUTSIDE RECORDS SUMMARY | ~2019-08-09 | XMS | Clinical Summary ---
Demographics + + + | Address | [address] | | | [place] [address] | + + + | Home Phone | | + + + | Preferred Language | Unknown | + + + | Marital Status | | + + + | Orthodoxy Affiliation | Unknown | + + + | Race | Unknown | + + + | Ethnic Group | Unknown | + + + Author + + + | Author | [facility] (Historical as of | | | 03-18-19) | + + + | Organization | [facility] (Historical as of | | | 03-18-19) [...] [place] | | | | | [address] | | + + + + + Care Team Providers + +------+ + | Care Bar Manager Name | Role | Phone | [...] | 0/20 | | e | | [address] [address] | | | | 14 [...] +------+-------+ + | PREMERA | PREMER | [id number] | | | [address] [address] | | | A BLUE | 1 | | | [place] | | | CARD | | | | [address] | +---------+--------+ +------+-------+ + + +--------+ +--------+ [...] | [address]redith | | | [address] | [address] | + +--------+ +--------+ + +"
--- OUTSIDE RECORDS SUMMARY | ~2019-08-09 | XMS | Encounter Summary ---
Demographics + + + | Address | [address] | | | [place] [address] | + + + | Home Phone [...] Team Providers + +------+ + | Care Pharmacoepidemiologist Name | Role | Phone | + +------+ + PCP | Unavailable | + +------+ + Encounter Details +--------+ + + + + | Date | Type | Department | Care Team | Description | +--------+ + + + + | 07/19/ | Emergency | [facility] | John Nieves | | | 1994 | | [facility] | [address] | | | | | CENTER [address] [place], [place] | | | | | [address] | [address] | | | | | [place], [place] | | | | | | [address] | | | | | | [phone] | | | +--------+ + + + [...]
--- OUTSIDE RECORDS SUMMARY | ~2019-08-09 | XMS | Encounter Summary ---
Demographics + + + | Address | [address] | | | [place] [address] | + + + | Home Phone | | + + + | Preferred Language | Unknown | + + + | Marital Status | | + + + | Rastafari Affiliation | 1027 | + + + [...] Team Providers + +------+ + | Care Field Evidence Technician Name | Role | Phone | + +------+ + PCP | Unavailable | + +------+ + Encounter Details +--------+ + + + + | Date | Type | Department | Care Team | Description | +--------+ + + + + | 03/03/ | Hospital | [facility] | Handy Anderson P, | | | 1994 | Encounter | [facility] | DO [address] | | | | | GENERIC OP CONV DEPT | RD [place], [place] | | | | | [address] | [id number] | | | | | [place], [place] | | | | | | [address] | | | | | | [phone] | | | +--------+ + + + [...]
--- OUTSIDE RECORDS SUMMARY | ~2019-08-09 | XMS | Encounter Summary ---
Demographics + + + | Address | [address] | | | [place] [address] | + + + | Home Phone [...] | + + +---------+ + | Andrea Vlilegas | ECON | Unknown | | + + +---------+ + | Zina Barnett | ECON | Unknown | | + + +---------+ + Care Team Providers + +------+ + | Care Selling Specialist Name | Role | Phone | [...] Pharmacy | | | | | | [address] | | | | | | Loop [place], [place] | | | | | | [address] | | | | | | [phone] | | | +--------+ + + + [...]
--- OUTSIDE RECORDS SUMMARY | ~2019-08-09 | XMS | Encounter Summary ---
Demographics + + + | Address | [address] | | | [place] [address] | + + + | Home Phone [...] Team Providers + +------+ + | Care Oracle Sql Developer Name | Role | Phone | + +------+ + | Ashwini Ochoa NP | PCP | | + +------+ + Encounter Details +--------+ + + + + | Date | Type | Department | Care Team | Description | +--------+ + + + + | 11/10/ | Telephone | Neurosurgery at | Shar [place], | | | 2014 | | [facility] [address] | [address] | | | | | [address] Mailcode: CH8N | [facility] | | | | | [facility] | [place], [place] | | | | | and [place], | [address] | | | | | [facility] | [phone] | | | | | Floor [place], [place] | | | | | | [address] | | | | | | [phone] | | | +--------+ + + + [...]
--- OUTSIDE RECORDS SUMMARY | ~2019-08-09 | XMS | Encounter Summary ---
Demographics + + + | Address | [address] | | | [place] [address] | + + + | Home Phone [...] Team Providers + +------+ + | Care Wallpaper Printer Name | Role | Phone | [...] | | CENTER [address] | [place] | | | | | [address] | [address] | | | | | [place] | | | | | | [address] | | | | | | [phone] | | | +--------+ + + + [...]
--- OUTSIDE RECORDS SUMMARY | ~2019-08-09 | XMS | Encounter Summary ---
Demographics + + + | Address | [address] | | | [place] [address] | + + + | Home Phone | | + + + | Preferred Language | Unknown | + + + | Marital Status | | + + + | Shinto Affiliation | 1027 | + + + | Race | Unknown | + + + | Ethnic Group | Unknown | + + + Author + + + | Author | [facility] | | | and [place] | + + + | Organization | [facility] | | | [...] Providers + +------+ + | Care Senior Branch Manager Name | Role | Phone | + +------+ + PCP | Unavailable | + +------+ + Encounter Details +--------+ + + + + | Date | Type | Department | Care Team | Description | +--------+ + + + + | 07/27/ | Hospital | [facility] | Ford Worley | | | 1994 | Encounter | [facility] | | | | | | GENERIC OP CONV DEPT | | | | | | [address] | | | | | | [place] | | | | | | [address] | | | | | | [phone] | | | +--------+ + + + [...]
--- OUTSIDE RECORDS SUMMARY | ~2019-08-09 | XMS | Encounter Summary ---
Demographics + + + | Address | [address] | | | [place] [address] | + + + | Home Phone [...] + +------+ + | Care Assistant Tennis Professional Name | Role | Phone | + +------+ + PCP | Unavailable | + +------+ + Encounter Details +--------+ + + + + | Date | Type | Department | Care Team | Description | +--------+ + + + + | 10/07/ | Hospital | [facility] | ZZ, DEFAULT | | | 1991 - | Encounter | [facility] | | | | | | GENERIC OP CONV DEPT | | | | 10/11/ | | [address] | | | | 1990 | | [place] | | | | | | [address] | | | | | | [phone] | | | +--------+ + + + [...]
--- OUTSIDE RECORDS SUMMARY | ~2019-08-09 | XMS | Encounter Summary ---
Demographics + + + | Address | [address] | | | [place] [address] | + + + | Home Phone | | + + + | Preferred Language | Unknown | + + + | Marital Status | | + + + | Sikhism Affiliation | 1027 | + + + | Race | Unknown | + + + | Ethnic Group | Unknown | + + + Author + + + | Author | [facility] | | | and [place] | + + + | Organization | [facility] | | | and [...] Providers + +------+ + | Care Cook Railroad Name | Role | Phone | + [...] [place] | | | | | [address] | [address] | | | | | [phone] | [phone] | | | | | | | [...] | | | Basophils | performed at [facility], [address] | | LAB | | | | [address], | | | | | | [place] [address] | | | | + + + [...]
--- OUTSIDE RECORDS SUMMARY | ~2019-08-09 | XMS | Encounter Summary ---
Demographics + + + | Address | [address] | | | [place] [address] | + + + | Home Phone | | + + + | Preferred Language | Unknown | + + + | Marital Status | | + + + | Latter Day Affiliation | 1027 | + + + | Race | Unknown | + + + | Ethnic Group | Unknown | + + + Author + + + | Author | [facility] | | | and [place] | + + + | Organization | [facility] | | [...] Team Providers + +------+ + | Care Instructor Technical Training Name | Role | Phone | + [...] + + | 06/01/ | Surgery | [facility] | Alex Burnett | COLONOSCOPY | | 2017 | | MED CTR MP INTRA OP | MD Kai [address] | | | | | [address] | [facility] | | | | | [place] | [place] [address] | | | | | [address] | [phone] | | | | | [phone] | | | +--------+---------+ + + + [...] | | 0 | | | | [facility]-On[facility]qjzs | as needed (pain). | | | [...] 06/01/2017 | [facility] | | 10:59 AMMRN: [id number] #: [id number] of : | | | 1970Admit Type: AmbulatoryAge: 46Room: [facility] 02Gender: FemaleNote | | | Status: [...] | preparation was evaluated using the BBPS ([place] Bowel | | | Preparation Scale) with [...] results. - [facility] | | | previously scheduled. - [...] | | | AMScope Out: 11:41:13 AM [facility], [address] | | [place] [address] | | |Recommendation: | | | - The patient will be observed post-procedure, until all discharge | | | criteria are met. | | | - Await pathology results. | | | - Repeat colonoscopy in 5-10 years for surveillance based on pathology | | | results. | | | - [facility] nurse [facility] as previously | | | scheduled. [...] |Scope Out: 11:41:13 AM | | | [facility], [address] [place], [place] | | | [address] | | + + ---+ + +---------+ [...] | identified in any of these biopsies. B:[facility] GROSS DESCRIPTION: | | | Received [...] submitted, all | | | in (C1). ka:IRINA:mariely PERFORMING LABORATORY: Tissue processing and | | | slide preparation were performed by [facility], [facility] [address] | [address], [place] [address] (Lan Administrator: Shayne Angel | | | [facility] CLIA#: [id number]). Professional interpretation was performed | | | by [facility], [address], [place], [place] | | | [address] (Lan Administrator: Shayne Angel M.D.; CLIA#: [id number]). | | | Diagnostician: Jhonatan Cervantes MD Pathologist Electronically | | | Signed 06/02/2017 | | + + + + +---------+ + + | Performing | Address | City/[facility] | Phone Number | | Organization | [...]
--- OUTSIDE RECORDS SUMMARY | ~2019-08-09 | XMS | Encounter Summary ---
Demographics + + + | Address | [address] | | | [place] [address] | + + + | Home Phone | | + + + | Preferred Language | Unknown | + + + | Marital Status | | + + + | Yarsanism Affiliation | 1027 | + + + [...] Team Providers + +------+ + | Care Legal Mediator Name | Role | Phone | + +------+ + PCP | Unavailable | + +------+ + Encounter Details +--------+ + + + + | Date | Type | Department | Care Team | Description | +--------+ + + + + | 10/02/ | Hospital | [facility] | Handy Anderson P, | | | 1994 | Encounter | [facility] | DO [address] | | | | | GENERIC OP CONV DEPT | RD [place], [place] | | | | | [address] | [address] | | | | | [place], [place] | | | | | | [address] | Sterling Davis MD | | | | | [phone] | [address] [facility] | | | | | | MAIN LEVEL [place], | | | | | | [place] [address] | | | | | | [phone] | | | | | | | [...]
--- OUTSIDE RECORDS SUMMARY | ~2019-08-09 | XMS | Encounter Summary ---
Demographics + + + | Address | [address] | | | [place] [address] | + + + | Home Phone [...] Team Providers + +------+ + | Care Lab Tester Name | Role | Phone | + [...] [place] | | | | | [address] | [address] | | | | | [phone] | [phone] | | | | | | | [...] | | | | | | at [facility], [address] | | | | | | [address], | | | | | | [place] [address] | | | | + + + [...]
--- OUTSIDE RECORDS SUMMARY | ~2019-08-09 | XMS | Encounter Summary ---
Demographics + + + | Address | [address] | | | [place] [address] | + + + | Home Phone | | + + + | Preferred Language | Unknown | + + + | Marital Status | | + + + | Denominational Affiliation | 1027 | + + + | Race | Unknown | + + + | Ethnic Group | Unknown | + + + Author + + + | Author | [facility] | | | and [place] | + + + | Organization | [facility] | | | [...] Team Providers + +------+ + | Care Block Cuber Name | Role | Phone | + +------+ + PCP | Unavailable | + +------+ + Encounter Details +--------+ + + + + | Date | Type | Department | Care Team | Description | +--------+ + + + + | 09/01/ | Hospital | [facility] | Handy Anderson P, | | | 1994 | Encounter | [facility] | DO [address] | | | | | GENERIC OP CONV DEPT | RD [place], [place] | | | | | [address] | [id number] | | | | | [place], [place] | | | | | | [address] | | | | | | [phone] | | | +--------+ + + + [...]
--- OUTSIDE RECORDS SUMMARY | ~2019-08-09 | XMS | Encounter Summary ---
Demographics + + + | Address | [address] | | | [place] [address] | + + + | Home Phone [...] Providers + +------+ + | Care Calender Supervisor Name | Role | Phone | [...] Provider Unknown | | | | | [address] | [phone] | | | | | [phone] | | | +--------+ + + + [...] | | | | performed at [facility] | | LAB | | | | Health; [address]; | | | | | | [place] [address] | | | | + + + [...]
--- OUTSIDE RECORDS SUMMARY | ~2019-08-09 | XMS | Encounter Summary ---
Demographics + + + | Address | [address] | | | [place] [address] | + + + | Home Phone | | + + + | Preferred Language | Unknown | + + + | Marital Status | | + + + | Orthodox Affiliation | 1027 | + + + | Race | Unknown | + + + | Ethnic Group | Unknown | + + + Author + + + | Author | [facility] | | | and [place] | + + + | Organization | [facility] | | | [...] Team Providers + +------+ + | Care Professor Of Religion Name | Role | Phone | + [...] [place] | | | | | [address] | [address] | | | | | [phone] | [phone] | | | | | | | [...] | Testing performed at | | | [facility]; [address]; [place] [address] CULTURE | | | NO GROWTH | | | Testing performed at [facility], [address] [facility] | | | [place] [address] | | | | | + + + + +---------+ + + | Performing | Address | City/State/Zipcode | Phone Number | | Organization | | | | + +---------+ + + | EXTERNAL LAB | | | | + +---------+ + + documented in this encounter Visit Diagnoses Not on filedocumented in this encounter"
--- OUTSIDE RECORDS SUMMARY | ~2019-08-09 | XMS | Encounter Summary ---
Demographics + + + | Address | [address] | | | [place] [address] | + + + | Home Phone | | + + + | Preferred Language | Unknown | + + + | Marital Status | | + + + | Baptism Affiliation | 1027 | + + + | Race | Unknown | + + + | Ethnic Group | Unknown | + + + Author + + + | Author | [facility] | | | and [place] | + + + | Organization | [facility] | | | [...] Team Providers + +------+ + | Care International Bank Manager Name | Role | Phone | [...] Provider Unknown | | | | | [address] | [phone] | | | | | [phone] | | | +--------+ + + + [...] EXTERNAL | | | | performed at [facility] | | LAB | | | | Health; [address]; | | | | | | [place] [address] | | | | + + + [...]
--- OUTSIDE RECORDS SUMMARY | ~2019-08-09 | XMS | Encounter Summary ---
Demographics + + + | Address | [address] | | | [place] [address] | + + + | Home Phone [...] Providers + +------+ + | Care Chemical Sales Representative Name | Role | Phone [...] [place] | | | | | [address] | [address] | | | | | [phone] | [phone] | | | | | | | [...] | | | | performed at [facility], [address] | | LAB | | | | [address], | | | | | | [place] [address] | | | | + + + [...]
--- OUTSIDE RECORDS SUMMARY | ~2019-08-09 | XMS | Encounter Summary ---
Demographics + + + | Address | [address] | | | [place] [address] | + + + | Home Phone | | + + + | Preferred Language | Unknown | + + + | Marital Status | | + + + | Presybeterian Affiliation | 1027 | + + + [...] Team Providers + +------+ + | Care Biztalk Consultant Name | Role | Phone | + +------+ + PCP | Unavailable | + +------+ + Encounter Details +--------+ + + + + | Date | Type | Department | Care Team | Description | +--------+ + + + + | 07/15/ | Hospital | [facility] | Fiordaliza Walls | | | 1994 | Encounter | [facility] | [address] | | | | | GENERIC OP CONV DEPT | [place] [address] | | | | | [address] | [phone] | | | | | [place], [place] | | | | | | [address] | | | | | | [phone] | | | +--------+ + + + [...]
--- OUTSIDE RECORDS SUMMARY | ~2019-08-09 | XMS | Encounter Summary ---
Demographics + + + | Address | [address] | | | [place] [address] | + + + | Home Phone | | + + + | Preferred Language | Unknown | + + + | Marital Status | | + + + | Muslim Affiliation | 1027 | + + + | Race | Unknown | + + + | Ethnic Group | Unknown | + + + Author + + + | Author | [facility] | | | and [place] | + + + | Organization | [facility] | | [...] Team Providers + +------+ + | Care Foreign Languages Professor Name | Role | Phone | + +------+ + PCP | Unavailable | + +------+ + Encounter Details +--------+ + + + + | Date | Type | Department | Care Team | Description | +--------+ + + + + | 10/26/ | Hospital | [facility] | Handy Anderson P, | | | 1993 | Encounter | [facility] | DO [address] | | | | | GENERIC OP CONV DEPT | [address] [place], [place] | | | | | [address] | [id number] | | | | | [place], [place] | | | | | | [address] | | | | | | [phone] | | | +--------+ + + + [...]
--- OUTSIDE RECORDS SUMMARY | ~2019-08-09 | XMS | Encounter Summary ---
Demographics + + + | Address | [address] | | | [place] [address] | + + + | Home Phone [...] Team Providers + +------+ + | Care Calf Skinner Name | Role | Phone | + [...] | | | | brain and | [place] | [place] | | | | | spinal cord | [address] | [address] | | | | | (HCC) | Phone: | Phone: | | | | | Procedures | [phone] | [phone] | | | | | REQUEST TO | Fax: | Fax: | | | | | SURGERY | [phone] | [phone] | | | | | LABORATORY GENETICIST | | | | | | | [place] EXCIS | | | | | | | INFRATENT | | | | | | | BRAIN TUMOR | | | | | | | [place] SCAN | | | | | | [...] fossa | | 2015 | Visit | [facility] [address] | [address] | tumor (HCC) (Primary | | | | Ave Mailcode: CH8N | [place], [place] | Dx) | | | | [facility] | [address] | | | | | and Healing, | [phone] | | | | | [facility] | | | | | | Floor [place], [place] | | | | | | [address] | | | | | | [phone] | | | +--------+---------+ + + + [...] by me and if not recorded in [facility] will be scanned into the stem using [...]
--- OUTSIDE RECORDS SUMMARY | ~2019-08-09 | XMS | Encounter Summary ---
Demographics + + + | Address | [address] | | | [place] [address] | + + + | Home Phone [...] Team Providers + +------+ + | Care Grievance And Appeals Specialist Name | Role | Phone | [...] | | | | MRI BRAIN | [place], [place] | | | | | | TUMOR | [address] | | | | | | EVALUATION | Phone: | | | | | | WWO CONTRAST | [phone] | | | | | | | Fax: | | | | | | | [phone] | | +--------+--------+ + + + + [...] Radiology Order | | 2016 | | [facility] [address] | [address] | | | | | [address] Mailcode: CH8N | [place], [place] | | | | | [facility] | [address] | | | | | and Healing, | [phone] | | | | | [facility] | | | | | | Floor [place], [place] | | | | | | [address] | | | | | | [phone] | | | +--------+ + + + [...]
--- OUTSIDE RECORDS SUMMARY | ~2019-08-09 | XMS | Encounter Summary ---
Demographics + + + | Address | [address] | | | [place] [address] | + + + | Home Phone [...] Team Providers + +------+ + | Care Trapper Animal Name | Role | Phone | + [...] Provider Unknown | | | | | [address] | [phone] | | | | | [phone] | | | +--------+ + + + [...] [address]; | | | | | | [place] [address] | | | | + + + [...]
--- OUTSIDE RECORDS SUMMARY | ~2019-08-09 | XMS | Encounter Summary ---
Demographics + + + | Address | [address] | | | [place] [address] | + + + | Home Phone [...] Team Providers + +------+ + | Care Auto Electrician Name | Role | Phone | + [...] [place] | | | | | [address] | [address] | | | | | [phone] | [phone] | | | | | | | [...] EXTERNAL | | | | performed at [facility], [address] | | LAB | | | | [place], | | | | | | [place] [address] | | | | + + + [...]
--- OUTSIDE RECORDS SUMMARY | ~2019-08-09 | XMS | Encounter Summary ---
Demographics + + + | Address | [address] | | | [place] [address] | + + + | Home Phone [...] Providers + +------+ + | Care Wood Gang Sawyer Name | Role | Phone | [...] Rd | | | | | | [place], [place] | | | | | | [address] | | | +--------+ + + + [...]
--- OUTSIDE RECORDS SUMMARY | ~2019-08-09 | XMS | Encounter Summary ---
Demographics + + + | Address | [address] | | | [place] [address] | + + + | Home Phone [...] Team Providers + +------+ + | Care State Historical Society Director Name | Role | Phone | [...] data | | 2015 | IP | [address] | [address] | completion) | | | | [address] | [place], [place] | | | | | [place], [place] | [address] | | | | | [address] | [phone] | | | | | | | [...]
--- OUTSIDE RECORDS SUMMARY | ~2019-08-09 | XMS | Encounter Summary ---
Demographics + + + | Address | [address] | | | [place] [address] | + + + | Home Phone [...] Providers + +------+ + | Care School Bus Driver/Teacher Assistant Name | Role | Phone | [...] | | | | Subependymom | [place] [address] | | | | | | a (HCC) | [address] | | | | | | Procedures | [address] | | | | | | MRI BRAIN | [place], [place] | | | | | | TUMOR | [address] | | | | | | EVALUATION | Phone: | | | | | | WWO CONTRAST | [phone] | | | | | | | Fax: | | | | | | | [phone] | | +--------+--------+ + + + + [...] (HCC) | | 2015 | Visit | [facility] [address] | [address] | (Primary Dx) | | | | Ave Mailcode: CH8N | [place], [place] | | | | | [facility] | [address] | | | | | and Healing, | [phone] | | | | | [facility] | | | | | | Floor [place], [place] | | | | | | [address] | | | | | | [phone] | | | +--------+---------+ + + + [...] reports that she is doing well [facility]. She denies headaches currently. She does [...] every six hours. Take 1 tablet by [facility] every 8 hours for 2 days. [...] also contact us to fax referral for [place] in [facility]. 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
--- OUTSIDE RECORDS SUMMARY | ~2019-08-09 | XMS | Encounter Summary ---
Demographics + + + | Address | [address] | | | [place] [address] | + + + | Home Phone [...] Providers + +------+ + | Care Public Health Veterinarian Name | Role | Phone | + [...] | | | | | | [place] | | | | | | | COLONOSCOPY | | | | | | | FLX DX | | | | | | | W/COLLJ SPEC | | | | | | | WHEN PFRMD | | | | | | | [place] | | | | | | | COLONOSCOPY | | | | | | | W/BIOPSY | | | | | | | SINGLE/MULTI | | | | | | | PLE [place] | | | | | | | COLSC FLX | | | | | | | W/RMVL OF | | | | | | | TUMOR POLYP | | | | | | | LESION SNARE | | | | | | | TQ [place] | | | | | | | [...] + + | 06/01/ | [facility] | [facility] | Alex Burnett | COLONOSCOPY | | 2017 | | MED CTR MP INTRA OP | MD Kai [address] | | | | | [address] | [facility] | | | | | [place] | [place] [address] | | | | | [address] | [phone] | | | | | [phone] | | | +--------+---------+ + + + [...] | | 0 | | | | YBOZ-Udwbnouh-Lfsbjt | as needed (pain). | | | [...] 06/01/2017 | [facility] | | 10:59 AMMRN: [id number] #: [id number] of : | | | 1970Admit Type: AmbulatoryAge: 46Room: [facility]Gender: FemaleNote | | | Status: [...] | preparation was evaluated using the BBPS ([place] Bowel | | | Preparation Scale) with [...] results. - [facility] as | | | previously scheduled. - [...] | | | AMScope Out: 11:41:13 AM [facility], [address] | | | [place] [address] | | |Recommendation: | | | - The patient will be observed post-procedure, until all discharge | | | criteria are met. | | | - Await pathology results. | | | - Repeat colonoscopy in 5-10 years for surveillance based on pathology | | | results. | | | - [facility] [place] as previously | | | scheduled. | [...] |Scope Out: 11:41:13 AM | | | [facility], [address] [place], [place] | | | [address] | | + + ---+ + +---------+ [...] | identified in any of these biopsies. B:[facility] GROSS DESCRIPTION: | | | Received in [...] | | slide preparation were performed by [facility], [facility] [address], [place] [address] (Executive Services Administrator: Shayne Angel | | | [facility] CLIA#: [id number]). Professional interpretation was performed | | | by [facility], [address], [place], [place] | | | [address] (Executive Services Administrator: Shayne Angel M.D.; CLIA#: [id number]). | | | Diagnostician: Jhonatan Cervantes MD Pathologist Electronically | | | Signed 06/02/2017 | | + + + + +---------+ + + | Performing | Address | City/State/Unm Hospitalcode | Phone Number | | Organization [...]
--- OUTSIDE RECORDS SUMMARY | ~2019-08-09 | XMS | Encounter Summary ---
Demographics + + + | Address | [address] | | | [place] [address] | + + + | Home Phone | | + + + | Preferred Language | Unknown | + + + | Marital Status | | + + + | Bahai Affiliation | 1027 | + + + [...] Team Providers + +------+ + | Care Cable Tower Operator Name | Role | Phone | [...] | | | | | | [place] | | | | | | | COLONOSCOPY | | | | | | | FLX DX | | | | | | | W/COLLJ SPEC | | | | | | | WHEN PFRMD | | | | | | | [place] | | | | | | | COLONOSCOPY | | | | | | | W/BIOPSY | | | | | | | SINGLE/MULTI | | | | | | | PLE [place] | | | | | | | COLSC FLX | | | | | | | W/RMVL OF | | | | | | | TUMOR POLYP | | | | | | | LESION SNARE | | | | | | | TQ [place] | | | | | | | [...] + + | 06/01/ | Hospital | [facility] | Alex Burnett | Abdominal pain, | | 2016 | Encounter | MED CTR MP INTRA OP | MD Kai [address] | epigastric; | | | | [address] | [address] [place] | Diarrhea, | | | | [place], [place] | [place] [address] | unspecified type | | | | [address] | [phone] | | | | | [phone] | | | +--------+ + + + [...] | | 0 | | | | [facility] | as needed (pain). | | | [...] | | | | | | unspecified ([facility]) | | | | | | (F31.9) [...] 06/01/2017 | [facility] | | 10:59 AMMRN: [id number] #: [id number] of : | | | 1970Admit Type: AmbulatoryAge: 46Room: [facility] 02Gender: FemaleNote | | | Status: FinalizedAttending MD: ALEX BURNETT MDProcedure: | | | ColonoscopyIndications: Chronic diarrhea, | | | DiarrheaProviders: ALEX BURNTET MD, Ronda Brizuela RN, | | | [...] | preparation was evaluated using the BBPS ([place] Bowel | | | Preparation Scale) with [...] | results. - Return to nurse practitioner ([facility]) as | | | previously scheduled. [...] | | | AMScope Out: 11:41:13 AM [facility], [address] | | | [place] [address] | | |Recommendation: | | | - The patient will be observed post-procedure, until all discharge | | | criteria are met. | | | - Await pathology results. | | | - Repeat colonoscopy in 5-10 years for surveillance based on pathology | | | results. | | | - Return to nurse practitioner ([facility]) as previously | | | scheduled. [...] |Scope Out: 11:41:13 AM | | | [facility], [address] [place], [place] | | | [address] | | + + ---+ + +---------+ [...] | identified in any of these biopsies. [facility]A:[facility] GROSS DESCRIPTION: | | | Received in [...] | | slide preparation were performed by [facility], [address], [place] [address] (Boat Motor Mechanic: Shayne Angel, | | | [facility] CLIA#: [id number]). Professional interpretation was performed | | | by [facility], [address], [place], [place] | | | [address] (Boat Motor Mechanic: Shayne Agnel M.D.; CLIA#: [id number]). | | | Diagnostician: Jhonatan Cervantes MD [...]
--- OUTSIDE RECORDS SUMMARY | ~2019-08-09 | XMS | Encounter Summary ---
Demographics + + + | Address | [address] | | | [place] [address] | + + + | Home Phone [...] Team Providers + +------+ + | Care Employee Development Manager Name | Role | Phone | [...] [place] | | | | | [address] | [address] | | | | | [phone] | [phone] | | | | | | | [...] EXTERNAL | | | | performed at [facility] | | LAB | | | | Health; [address]; | | | | | | [place] [address] | | | | + + + + + + | Clarity | CLEARComment: Testing | | EXTERNAL | | | | performed at [facility] | | LAB | | | | Health; [address]; | | | | | | [place] [address] | | | | + + + + + + | Specific | 1.020Comment: Testing | 1.002 - 1.030 | EXTERNAL | | | Kremlin | performed at [facility] | | LAB | | | | Health; [address]; | | | | | | [place] [address] | | | | + + + + + + | Leukocyte | NEGATIVEComment: Testing | | EXTERNAL | | | Esterase, | performed at [facility] | | LAB | | | Urine | Health; [address]; | | | | | | [place] [address] | | | | + + + + + + | Nitrite, | NEGATIVEComment: Testing | | EXTERNAL | | | Urine | performed at [facility] | | LAB | | | | Health; [address]; | | | | | | [place] [address] | | | | + + + + + + | Urobilinoge | 0.2Comment: Testing | mg/dL | EXTERNAL | | | n, Urine | performed at [facility] | | LAB | | | | Health; [address]; | | | | | | [place] [address] | | | | + + + + + + | Protein, | NEGATIVEComment: Testing | mg/dL | EXTERNAL | | | Urine | performed at [facility] | | LAB | | | | Health; [address]; | | | | | | [place] [address] | | | | + + + + + + | pH, Urine | 5.5Comment: Testing | 5.0 - 8.0 | EXTERNAL | | | | performed at [facility] | | LAB | | | | Health; [address]; | | | | | | [place] [address] | | | | + + + + + + | Blood, | NEGATIVEComment: Testing | | EXTERNAL | | | Urine | performed at [facility] | | LAB | | | | Health; [address]; | | | | | | [place] [address] | | | | + + + + + + | Ketones | TRACE (A)Comment: | mg/dL | EXTERNAL | | | | Testing performed at | | LAB | | | | [facility]; [address] | | | | | | [place]; [place] | | | | | | [address] | | | | + + + + + + | Bilirubin, | NEGATIVEComment: Testing | | EXTERNAL | | | Urine | performed at [facility] | | LAB | | | | Health; [address]; | | | | | | [place] [address] | | | | + + + + + + | Glucose, | NEGATIVEComment: Testing | mg/dL | EXTERNAL | | | Urine | performed at [facility] | | LAB | | | | Health; [address]; | | | | | | [place] [address] | | | | + + + + + + | WBC, UA | 0-2Comment: Testing | 0 - 5 /hpf | EXTERNAL | | | | performed at [facility] | | LAB | | | | Health; [address]; | | | | | | [place] [address] | | | | + + + + + + | RBC, UA | 1-5Comment: Testing | 0 - 5 /hpf | EXTERNAL | | | | performed at [facility] | | LAB | | | | Health; [address]; | | | | | | [place] [address] | | | | + + + + + + | Epithelial | 26-50Comment: Testing | /lpf | EXTERNAL | | | Cells | performed at [facility] | | LAB | | | | Health; [address]; | | | | | | [place] [address] | | | | + + + + + + | Bacteria, | NONE SEENComment: | | EXTERNAL | | | UA | Testing performed at | | LAB | | | | [facility]; [address] | | | | | | [address]; [place] | | | | | | [address] | | | | + + + [...]
--- OUTSIDE RECORDS SUMMARY | ~2019-08-09 | XMS | Encounter Summary ---
Demographics + + + | Address | [address] | | | [place] [address] | + + + | Home Phone [...] Team Providers + +------+ + | Care Forestry Biology Specialist Name | Role | Phone | [...] Rd | | | | | | [place], [place] | | | | | | [address] | | | +--------+ + + + [...]
--- OUTSIDE RECORDS SUMMARY | ~2019-08-09 | XMS | Encounter Summary ---
Demographics + + + | Address | [address] | | | [place] [address] | + + + | Home Phone | | + + + | Preferred Language | Unknown | + + + | Marital Status | | + + + | Yazidism Affiliation | 1027 | + + + [...] Team Providers + +------+ + | Care Residential Case Manager Name | Role | Phone | [...] Provider Unknown | | | | | [address] | [phone] | | | | | [phone] | | | +--------+ + + + [...] [address]; | | | | | | [place] [address] | | | | + + + [...]
--- OUTSIDE RECORDS SUMMARY | ~2019-08-09 | XMS | Encounter Summary ---
Demographics + + + | Address | [address] | | | [place] [address] | + + + | Home Phone | | + + + | Preferred Language | Unknown | + + + | Marital Status | | + + + | Voodoo Affiliation | 1027 | + + + | Race | Unknown | + + + | Ethnic Group | Unknown | + + + Author + + + | Author | [facility] | | | and [place] | + + + | Organization | [facility] | | | [...] Team Providers + +------+ + | Care Local Company Truck Driver Name | Role | Phone | [...] [place] | | | | | [address] | [address] | | | | | [phone] | [phone] | | | | | | | [...] | Testing performed at | | | [facility]; [address] [facility] [place]; [place] [address] CULTURE | | | NO GROWTH | | | Testing performed at [facility], [address] [facility] | | | [place] [address] | | | | | + + + + +---------+ + + | Performing | Address | City/State/Zipcode | Phone Number | | Organization | | | | + +---------+ + + | EXTERNAL LAB | | | | + +---------+ + + documented in this encounter Visit Diagnoses Not on filedocumented in this encounter"
--- OUTSIDE RECORDS SUMMARY | ~2019-08-09 | XMS | Encounter Summary ---
Demographics + + + | Address | [address] | | | [place] [address] | + + + | Home Phone | | + + + | Preferred Language | Unknown | + + + | Marital Status | | + + + | Scientologist Affiliation | 1027 | + + + [...] Team Providers + +------+ + | Care Business Economist Name | Role | Phone | + [...] Provider Unknown | | | | | [address] | [phone] | | | | | [phone] | | | +--------+ + + + [...] [address]; | | | | | | [place] [address] | | | | + + + + + + | K | 4.4Comment: Testing | 3.5 - 4.9 | EXTERNAL | | | | performed at [facility] | mmol/L | LAB | | | | Health; [address]; | | | | | | [place] [address] | | | | + + + + + + | Cl | 104Comment: Testing | 99 - 109 mmol/L | EXTERNAL | | | | performed at [facility] | | LAB | | | | Health; [address]; | | | | | | [place] [address] | | | | + + + + + + | CO2 | 30Comment: Testing | 23 - 32 mmol/L | EXTERNAL | | | | performed at [facility] | | LAB | | | | Health; [address]; | | | | | | [place] [address] | | | | + + + + + + | Anion Gap | 10Comment: Testing | 5 - 20 mmol/L | EXTERNAL | | | | performed at [facility] | | LAB | | | | Health; [address]; | | | | | | [place] [address] | | | | + + + + + + | Glucose, | 102 (H)Comment: Testing | 65 - 99 mg/dL | EXTERNAL | | | Fasting | performed at [facility] | | LAB | | | | Health; [address]; | | | | | | [place] [address] | | | | + + + + + + | BUN | 15Comment: Testing | 8 - 25 mg/dL | EXTERNAL | | | | performed at [facility] | | LAB | | | | Health; [address]; | | | | | | [place] [address] | | | | + + + + + + | Creatinine | 0.9Comment: Testing | 0.50 - 1.00 | EXTERNAL | | | | performed at [facility] | mg/dL | LAB | | | | Health; [address]; | | | | | | [place] [address] | | | | + + + + + + | BUN/Creatin | 17Comment: Testing | | EXTERNAL | | | ine Ratio | performed at [facility] | | LAB | | | | Health; [address]; | | | | | | [place] [address] | | | | + + + + + + | Calcium | 9.5Comment: Testing | 8.5 - 10.2 | EXTERNAL | | | | performed at [facility] | mg/dL | LAB | | | | Health; [address]; | | | | | | [place] [address] | | | | + + + + + + | Protein, | 6.5Comment: Testing | 6.3 - 8.2 g/dL | EXTERNAL | | | Total | performed at [facility] | | LAB | | | | Health; [address]; | | | | | | [place] [address] | | | | + + + + + + | Albumin | 2.6 (L)Comment: Testing | 3.6 - 5.0 g/dL | EXTERNAL | | | | performed at [facility] | | LAB | | | | Health; [address]; | | | | | | [place] [address] | | | | + + + + + + | Globulin | 3.9Comment: Testing | 1.3 - 4.9 g/dL | EXTERNAL | | | | performed at [facility] | | LAB | | | | Health; [address]; | | | | | | [place] [address] | | | | + + + + + + | A/G Ratio | 0.7 (L)Comment: Testing | 1.0 - 2.4 | EXTERNAL | | | | performed at [facility] | | LAB | | | | Health; [address]; | | | | | | [place] [address] | | | | + + + + + + | Bilirubin | 0.2Comment: Testing | 0.1 - 1.5 mg/dL | EXTERNAL | | | Total | performed at [facility] | | LAB | | | | Health; [address]; | | | | | | [place] [address] | | | | + + + + + + | ALP, | 71Comment: Testing | 35 - 115 U/L | EXTERNAL | | | External | performed at [facility] | | LAB | | | | Health; [address]; | | | | | | [place] [address] | | | | + + + + + + | AST | 20Comment: Testing | 10 - 45 U/L | EXTERNAL | | | | performed at [facility] | | LAB | | | | Health; [address]; | | | | | | [place] [address] | | | | + + + + + + | ALT | 34Comment: Testing | 10 - 65 U/L | EXTERNAL | | | | performed at [facility] | | LAB | | | | Health; [address]; | | | | | | [place] [address] | | | | + + + [...] | | | | | | at [facility]; [address] | | | | | | [address]; [place], [place] | | | | | | [address] | | | | + + + [...]
--- OUTSIDE RECORDS SUMMARY | ~2019-08-09 | XMS | Encounter Summary ---
Demographics + + + | Address | [address] | | | [place] [address] | + + + | Home Phone | | + + + | Preferred Language | Unknown | + + + | Marital Status | | + + + | Roman Catholic Affiliation | 1027 | + + + | Race | Unknown | + + + | Ethnic Group | Unknown | + + + Author + + + | Author | [facility] | | | and [place] | + + + | Organization | [facility] | | | and [...] Team Providers + +------+ + | Care Rib Bender Name | Role | Phone | + [...] Provider Unknown | | | | | [address] | [phone] | | | | | [phone] | | | +--------+ + + + [...] EXTERNAL | | | | performed at [facility] | | LAB | | | | Health; [address]; | | | | | | [place] [address] | | | | + + + [...]
--- OUTSIDE RECORDS SUMMARY | ~2019-08-09 | XMS | Encounter Summary ---
Demographics + + + | Address | [address] | | | [place] [address] | + + + | Home Phone [...] + | Author | [facility] | | | and [place] | + + + | Organization | [facility] | | [...] Providers + +------+ + | Care Drug Discovery Informatics Specialist Name | Role | Phone | [...] [place] | | | | | [address] | [address] | | | | | [phone] | [phone] | | | | | | | [...] | | | | | performed at [facility] | | | | | | [facility]; [facility]; | | | | | | [place] [address] | | | | + + + [...]
--- OUTSIDE RECORDS SUMMARY | ~2019-08-09 | XMS | Encounter Summary ---
Demographics + + + | Address | [address] | | | [place] [address] | + + + | Home Phone [...] Team Providers + +------+ + | Care Compressed Air Pile Driver Operator Name | Role | Phone | [...] [id number] | | | | | | [facility] | | | | | | [address] [place], [place] | | | | | | [address] | | | | | | [phone] | | | +--------+ + + + [...] mg by mouth once daily in the [facility] charles. TRAMADOL 50 MG TABLET Take [...] by mouth once daily at bedtime. 2 [id number] mg CHILDREN'S MULTI-VIT GUMMIES ORAL Take by [...] perfume, lotions or powder. Remove any nail romansh from at least one fingernail. Do not [...] in Locations Admitting [facility] Check in Time: Someone from your [...] it is after office hours, call the [facility] tower dragline operator at [phone] and ask them to page your doc tor. documented in this encounter Plan of Treatment Not on filedocumented as of this encounter Visit Diagnoses Not on filedocumented in this encounter"
--- OUTSIDE RECORDS SUMMARY | ~2019-08-09 | XMS | Encounter Summary ---
Demographics + + + | Address | [address] | | | [place] [address] | [...] Providers + +------+ + | Care Service Team Leader Name | Role | Phone | + +------+ + PCP | Unavailable | + +------+ + Encounter Details +--------+ + + + + | Date | Type | Department | Care Team | Description | +--------+ + + + + | 05/10/ | Hospital | [facility] | Ernestina Strange, | | | 1993 | Encounter | [facility] | BARREL CAP SETTER [address] | | | | | GENERIC OP CONV DEPT | [place], [place] | | | | | [address] | [address] | | | | | [place], [place] | [phone] | | | | | [address] | | | | | | [phone] | | | +--------+ + + + [...]
--- OUTSIDE RECORDS SUMMARY | ~2019-08-09 | XMS | Encounter Summary ---
Demographics + + + | Address | [address] | | | [place] [address] | + + + | Home Phone [...] Team Providers + +------+ + | Care Waiter And Cashier Name | Role | Phone | + +------+ + PCP | Unavailable | + +------+ + Encounter Details +--------+ + + + + | Date | Type | Department | Care Team | Description | +--------+ + + + + | 11/11/ | Hospital | [facility] | Handy Anderson P, | | | 1993 | Encounter | [facility] | DO [address] | | | | | GENERIC OP CONV DEPT | [address] [place], [place] | | | | | [address] | [id number] | | | | | [place], [place] | | | | | | [address] | | | | | | [phone] | | | +--------+ + + + [...]
--- OUTSIDE RECORDS SUMMARY | ~2019-08-09 | XMS | Encounter Summary ---
Demographics + + + | Address | [address] | | | [place] [address] | + + + | Home Phone [...] Team Providers + +------+ + | Care Marriage And Family Therapist Name | Role | Phone | [...] | | CENTER [address] [place], [place] | | | | | [address] | [address] | | | | | [place], [place] | | | | | | [address] | | | | | | [phone] | | | +--------+ + + + [...]
--- OUTSIDE RECORDS SUMMARY | ~2019-08-09 | XMS | Encounter Summary ---
Demographics + + + | Address | [address] | | | [place] [address] | + + + | Home Phone [...] Team Providers + +------+ + | Care Dietary Aide Name | Role | Phone | [...] [place] | | | | | [address] | [address] | | | | | [phone] | [phone] | | | | | | | [...] | | | | | | at [facility], [address] | | | | | | [address], | | | | | | [place] [address] | | | | + + + [...]
--- OUTSIDE RECORDS SUMMARY | ~2019-08-09 | XMS | Encounter Summary ---
Demographics + + + | Address | [address] | | | [place] [address] | + + + | Home Phone [...] Providers + +------+ + | Care Radio Artist Name | Role | Phone | + [...] Rd | | | | | | [place], [place] | | | | | | [address] | | | +--------+ + + + [...]
--- OUTSIDE RECORDS SUMMARY | ~2019-08-09 | XMS | Encounter Summary ---
Demographics + + + | Address | [address] | | | [place] [address] | + + + | Home Phone [...] Team Providers + +------+ + | Care Lens Grinder Name | Role | Phone | + [...] | | | | MRI BRAIN | [place], [place] | | | | | | TUMOR | [address] | | | | | | EVALUATION | Phone: | | | | | | WWO CONTRAST | [phone] | | | | | | | Fax: | | | | | | | [phone] | | +--------+--------+ + + + + [...] | | 2016 | | [facility] [address] | [address] | | | | | [address] Mailcode: CH8N | [place], [place] | | | | | [facility] | [address] | | | | | and Healing, | [phone] | | | | | [facility] | | | | | | Floor [place], [place] | | | | | | [address] | | | | | | [phone] | | | +--------+ + + + [...]
--- OUTSIDE RECORDS SUMMARY | ~2019-08-09 | XMS | Encounter Summary ---
Demographics + + + | Address | [address] | | | [place] [address] | + + + | Home Phone [...] Team Providers + +------+ + | Care Enamel Cracker Name | Role | Phone | + +------+ + | Ashwini Ochoa NP | PCP | | + +------+ + Encounter Details +--------+ + + + + | Date | Type | Department | Care Team | Description | +--------+ + + + + | 01/29/ | Document-Sc | Health Information | Unknown . | | | 2017 | anned | Services [address] | | | | | | [address]yson Misha | | | | | | Mailcode: OP17A | | | | | | [facility] | | | | | | [place], [place] | | | | | | [address] | | | | | | [phone] | | | +--------+ + + + [...]
--- OUTSIDE RECORDS SUMMARY | ~2019-08-09 | XMS | Encounter Summary ---
Demographics + + + | Address | [address] | | | [place] [address] | + + + | Home Phone [...] + | Author | [facility] | | | and [place] | + + + | Organization | [facility] | | [...] Team Providers + +------+ + | Care Filament Cutter Name | Role | Phone | + +------+ + PCP | Unavailable | + +------+ + Encounter Details +--------+ + + + + | Date | Type | Department | Care Team | Description | +--------+ + + + + | 04/07/ | Hospital | [facility] | Handy Anderson P, | | | 1994 | Encounter | [facility] | DO [address] | | | | | GENERIC OP CONV DEPT | [address] [place], [place] | | | | | [address] | [id number] | | | | | [place], [place] | | | | | | [address] | | | | | | [phone] | | | +--------+ + + + [...]
--- OUTSIDE RECORDS SUMMARY | ~2019-08-09 | XMS | Encounter Summary ---
Demographics + + + | Address | [address] | | | [place] [address] | + + + | Home Phone [...] Team Providers + +------+ + | Care Hydropress Operator Name | Role | Phone | [...] Medication Refill | | 2014 | | [facility] [address] | [address] [place] | | | | | [address] Mailcode: CH8N | [place], [place] | | | | | [facility] | [address] | | | | | and [place], | [phone] | | | | | [place] [address] | | | | | | [place], [place] | | | | | | [address] | | | | | | [phone] | | | +--------+ + + + [...]
--- OUTSIDE RECORDS SUMMARY | ~2019-08-09 | XMS | Encounter Summary ---
Demographics + + + | Address | [address] | | | [place] [address] | + + + | Home Phone | | + + + | Preferred Language | Unknown | + + + | Marital Status | | + + + | Orthodoxy Affiliation | 1027 | + + + | Race | Unknown | + + + | Ethnic Group | Unknown | + + + Author + + + | Author | [facility] | | | and [place] | + + + | Organization | [facility] | | [...] Team Providers + +------+ + | Care E Commerce Merchandising Coordinator Name | Role | Phone | [...] Provider Unknown | | | | | [address] | [phone] | | | | | [phone] | | | +--------+ + + + [...] [address]; | | | | | | [place] [address] | | | | + + + + + + | K | 4.4Comment: Testing | 3.5 - 4.9 | EXTERNAL | | | | performed at [facility] | mmol/L | LAB | | | | Health; [address]; | | | | | | [place] [address] | | | | + + + + + + | Cl | 104Comment: Testing | 99 - 109 mmol/L | EXTERNAL | | | | performed at [facility] | | LAB | | | | Health; [address]; | | | | | | [place] [address] | | | | + + + + + + | CO2 | 30Comment: Testing | 23 - 32 mmol/L | EXTERNAL | | | | performed at [facility] | | LAB | | | | Health; [address]; | | | | | | [place] [address] | | | | + + + + + + | Anion Gap | 10Comment: Testing | 5 - 20 mmol/L | EXTERNAL | | | | performed at [facility] | | LAB | | | | Health; [address]; | | | | | | [place] [address] | | | | + + + + + + | Glucose, | 102 (H)Comment: Testing | 65 - 99 mg/dL | EXTERNAL | | | Fasting | performed at [facility] | | LAB | | | | Health; [address]; | | | | | | [place] [address] | | | | + + + + + + | BUN | 15Comment: Testing | 8 - 25 mg/dL | EXTERNAL | | | | performed at [facility] | | LAB | | | | Health; [address]; | | | | | | [place] [address] | | | | + + + + + + | Creatinine | 0.9Comment: Testing | 0.50 - 1.00 | EXTERNAL | | | | performed at [facility] | mg/dL | LAB | | | | Health; [address]; | | | | | | [place] [address] | | | | + + + + + + | BUN/Creatin | 17Comment: Testing | | EXTERNAL | | | ine Ratio | performed at [facility] | | LAB | | | | Health; [address]; | | | | | | [place] [address] | | | | + + + + + + | Calcium | 9.5Comment: Testing | 8.5 - 10.2 | EXTERNAL | | | | performed at [facility] | mg/dL | LAB | | | | Health; [address]; | | | | | | [place] [address] | | | | + + + + + + | Protein, | 6.5Comment: Testing | 6.3 - 8.2 g/dL | EXTERNAL | | | Total | performed at [facility] | | LAB | | | | Health; [address]; | | | | | | [place] [address] | | | | + + + + + + | Albumin | 2.6 (L)Comment: Testing | 3.6 - 5.0 g/dL | EXTERNAL | | | | performed at [facility] | | LAB | | | | Health; [address]; | | | | | | [place] [address] | | | | + + + + + + | Globulin | 3.9Comment: Testing | 1.3 - 4.9 g/dL | EXTERNAL | | | | performed at [facility] | | LAB | | | | Health; [address]; | | | | | | [place] [address] | | | | + + + + + + | A/G Ratio | 0.7 (L)Comment: Testing | 1.0 - 2.4 | EXTERNAL | | | | performed at [facility] | | LAB | | | | Health; [address]; | | | | | | [place] [address] | | | | + + + + + + | Bilirubin | 0.2Comment: Testing | 0.1 - 1.5 mg/dL | EXTERNAL | | | Total | performed at [facility] | | LAB | | | | Health; [address]; | | | | | | [place] [address] | | | | + + + + + + | ALP, | 71Comment: Testing | 35 - 115 U/L | EXTERNAL | | | External | performed at [facility] | | LAB | | | | Health; [address]; | | | | | | [place] [address] | | | | + + + + + + | AST | 20Comment: Testing | 10 - 45 U/L | EXTERNAL | | | | performed at [facility] | | LAB | | | | Health; [address]; | | | | | | [place] [address] | | | | + + + + + + | ALT | 34Comment: Testing | 10 - 65 U/L | EXTERNAL | | | | performed at [facility] | | LAB | | | | Health; [address]; | | | | | | [place] [address] | | | | + + + [...] | | | | | | at [employer]; [address] | | | | | | [address]; [place], [place] | | | | | | [address] | | | | + + + [...]
--- OUTSIDE RECORDS SUMMARY | ~2019-08-09 | XMS | Encounter Summary ---
Demographics + + + | Address | [address] | | | [place] [address] | + + + | Home Phone | | + + + | Preferred Language | Unknown | + + + | Marital Status | | + + + | Congregation Affiliation | 1027 | + + + [...] Providers + +------+ + | Care Strategic Communications Specialist Name | Role | Phone | + +------+ + PCP | Unavailable | + +------+ + Encounter Details +--------+ + + + + | Date | Type | Department | Care Team | Description | +--------+ + + + + | 06/16/ | Hospital | [facility] | Handy Anderson P, | | | 1993 | Encounter | [facility] | DO [address] | | | | | GENERIC OP CONV DEPT | [address] [place], [place] | | | | | [address] | [id number] | | | | | [place], [place] | | | | | | [address] | | | | | | [phone] | | | +--------+ + + + [...]
--- OUTSIDE RECORDS SUMMARY | ~2019-08-09 | XMS | Encounter Summary ---
Demographics + + + | Address | [address] | | | [place] [address] | + + + | Home Phone [...] Providers + +------+ + | Care Shipping Hand Name | Role | Phone | [...] Provider Unknown | | | | | [address] | [phone] | | | | | [phone] | | | +--------+ + + + [...] EXTERNAL | | | | performed at [facility] | | LAB | | | | Health; [address]; | | | | | | [place] [address] | | | | + + + + + + | RED CELL | 2.83 (L)Comment: Testing | 3.70 - 5.10 | EXTERNAL | | | COUNT | performed at [facility] | M/uL | LAB | | | | Health; [address]; | | | | | | [place] [address] | | | | + + + + + + | Hgb | 8.4 (L)Comment: Testing | 11.3 - 15.5 | EXTERNAL | | | | performed at [facility] | g/dL | LAB | | | | Health; [address]; | | | | | | [place] [address] | | | | + + + + + + | Hematocrit, | 26.1 (L)Comment: Testing | 34.0 - 46.0 % | EXTERNAL | | | POC | performed at [facility] | | LAB | | | | Health; [address]; | | | | | | [place] [address] | | | | + + + + + + | MCV | 92.2Comment: Testing | 80.0 - 100.0 fl | EXTERNAL | | | | performed at [facility] | | LAB | | | | Health; [address]; | | | | | | [place] [address] | | | | + + + + + + | MCH | 29.8Comment: Testing | 27.0 - 34.0 pg | EXTERNAL | | | | performed at [facility] | | LAB | | | | Health; [address]; | | | | | | [place] [address] | | | | + + + + + + | MCHC | 32.3Comment: Testing | 32.0 - 35.5 | EXTERNAL | | | | performed at [facility] | g/dL | LAB | | | | Health; [address]; | | | | | | [place] [address] | | | | + + + + + + | RDW-CV | 73.1 (H)Comment: Testing | 37 - 53 fl | EXTERNAL | | | | performed at [facility] | | LAB | | | | Health; [address]; | | | | | | [place] [address] | | | | + + + + + + | Platelet | 606 (H)Comment: Testing | 150 - 400 K/uL | EXTERNAL | | | Count | performed at [facility] | | LAB | | | Plasma | Health; [address]; | | | | | | [place] [address] | | | | + + + + + + | MPV | 6.8Comment: Testing | fl | EXTERNAL | | | | performed at [facility] | | LAB | | | | Health; [address]; | | | | | | [place] [address] | | | | + + + + + + | Differentia | MANUALComment: Testing | | EXTERNAL | | | l Type | performed at [facility] | | LAB | | | | Health; [address]; | | | | | | [place] [address] | | | | + + + + + + | Segmented | 60Comment: Testing | % | EXTERNAL | | | Neutrophils | performed at [facility] | | LAB | | | Manual | Health; [address]; | | | | | | [place] [address] | | | | + + + + + + | Lymphocytes | 20Comment: Testing | % | EXTERNAL | | | Manual | performed at [facility] | | LAB | | | | Health; [address]; | | | | | | [place] [address] | | | | + + + + + + | Monocytes | 9Comment: Testing | % | EXTERNAL | | | Manual | performed at [facility] | | LAB | | | | Health; [address]; | | | | | | [place] [address] | | | | + + + + + + | Eosinophils | 11Comment: Testing | % | EXTERNAL | | | Manual | performed at [facility] | | LAB | | | | Health; [address]; | | | | | | [place] [address] | | | | + + + + + + | Absolute | 8.5 (H)Comment: Testing | 1.9 - 7.4 K/uL | EXTERNAL | | | Neutrophils | performed at [facility] | | LAB | | | | Health; [address]; | | | | | | [place] [address] | | | | + + + + + + | Absolute | 2.8Comment: Testing | 1.0 - 3.9 K/uL | EXTERNAL | | | Lymphocytes | performed at [facility] | | LAB | | | | Health; [address]; | | | | | | [place] [address] | | | | + + + + + + | Absolute | 1.3 (H)Comment: Testing | 0 - 0.8 K/uL | EXTERNAL | | | Monocytes | performed at [facility] | | LAB | | | | Health; [address]; | | | | | | [place] [address] | | | | + + + + + + | Absolute | 1.6 (H)Comment: Testing | 0 - 0.5 K/uL | EXTERNAL | | | Eosinophils | performed at [facility] | | LAB | | | | Health; [address]; | | | | | | [place] [address] | | | | + + + [...] | EXTERNAL | | | Morphology | [facility]; [address] | | LAB | | | | [place] | | | | | | [address] | | | | + + + [...]
--- OUTSIDE RECORDS SUMMARY | ~2019-08-09 | XMS | Encounter Summary ---
Demographics + + + | Address | [address] | | | [place] [address] | + + + | Home Phone [...] Providers + +------+ + | Care Water Treatment Plant Repairer Name | Role | Phone | + +------+ + PCP | Unavailable | + +------+ + Encounter Details +--------+ + + + + | Date | Type | Department | Care Team | Description | +--------+ + + + + | 06/10/ | Hospital | [facility] | Fiordaliza Walls | | | 1993 | Encounter | [facility] | [address] | | | | | GENERIC OP CONV DEPT | [place] [address] | | | | | [address] | [phone] | | | | | [place], [place] | | | | | | [address] | | | | | | [phone] | | | +--------+ + + + [...]
--- OUTSIDE RECORDS SUMMARY | ~2019-08-09 | XMS | Encounter Summary ---
Demographics + + + | Address | [address] | | | [place] [address] | + + + | Home Phone [...] Providers + +------+ + | Care Staff Writer Name | Role | Phone | [...] | | | [facility] | Road | [place] | | | | | GENETICS | [place], [place] | [address] | | | | | | [address] | Phone: | | | | | | Phone: | [phone] | | | | | | [phone] | Fax: | | | | | | Fax: | [phone] | | | | | | [phone] | | +--------+--------+ + + + + [...] | | | | | VENOUS | [place], [place] | [address] | | | | | DUPLEX LOWER | [address] | Physician's | | | | | EXTREMITY | Phone: | Pavilion | | | | | BILAT COMP | [phone] | [place], [place] | | | | | | Fax: | [address] | | | | | | [phone] | Phone: | | | | | | | [phone] | | | | | | | Fax: | | | | | | | [phone] | +--------+--------+ + + + + Reason [...] edema | | 2015 | Visit | [facility] [address] | [address] | (Primary Dx) | | | | Ave Mailcode: [id number] | [place], [place] | | | | | [facility] | [address] | | | | | and Healing, | [phone] | | | | | [facility] | | | | | | Floor [place], [place] | | | | | | [address] | | | | | | [phone] | | | +--------+---------+ + + + [...] every six hours. Take 1 tablet by [facility] every 8 hours for 2 days. Take [...] 2) Contact our office or present to [facility] Emergency Department for severe [...] | | + +---------+ + + | [facility] DEPARTMENT OF | | | | | RADIOLOGY | | | | + +---------+ + + documented in this encounter Visit Diagnoses + + | Diagnosis | + + | Bilateral leg edema - Primary Edema | + + documented in this encounter
--- OUTSIDE RECORDS SUMMARY | ~2019-08-09 | XMS | Encounter Summary ---
Demographics + + + | Address | [address] | | | [place] [address] | + + + | Home Phone | | + + + | Preferred Language | Unknown | + + + | Marital Status | | + + + | Tenriism Affiliation | 1027 | + + + | Race | Unknown | + + + | Ethnic Group | Unknown | + + + Author + + + | Author | [facility] | | | and [place] | + + + | Organization | [facility] | | [...] Team Providers + +------+ + | Care Education Program Coordinator Name | Role | Phone | + +------+ + PCP | Unavailable | + +------+ + Encounter Details +--------+ + + + + | Date | Type | Department | Care Team | Description | +--------+ + + + + | 10/05/ | Hospital | [facility] | Handy Anderson P, | | | 1993 | Encounter | [facility] | DO [address] | | | | | GENERIC OP CONV DEPT | [address] [place], [place] | | | | | [address] | [phone] | | | | | [place], [place] | | | | | | [address] | | | | | | [phone] | | | +--------+ + + + [...]
[~2019-08-09 19:16] MED LIST changes: +CRUTCH1 EACH; +NAPROXEN375 MG PO
--- OUTSIDE RECORDS SUMMARY | 2019-08-09 19:20 | XMS ---
PreManage Notification: MAGALIS BLACKMAN Security Pipe Puller Events No recent Security Events currently on file CRITERIA MET - 6 ED Visits in 6 Months - [facility] - Has [facility] Guidelines - PDMP CARE PROVIDERS FAYE DELGADO Internal Medicine 10/18/2018-Current [place] PHONE: [phone] FAYE DELGADO Primary Care Current PHONE: Unknown RAH PELAEZ Primary Care Current JERMAIN PHONE: Unknown Nathanael Jackson Current PHONE: Unknown Guidelines Source: [facility] Kiara Hoyt Guidelines Date: 05/22/2019 Care Coordination: Mental health services provided by [employer].\T\nbsp; Please contact [employer] with mental health concerns.\T\nbsp; Nelly/Dennis Sil[place]: [phone]\T\ nbsp; Rah: [phone]. Care History Medical/Surgical 06/07/2019 [facility] - PATIENT HAS A PCP APT WITH DR DELGADO ON 06/07/19. 10/18/2018 [facility] - Patient is currently established with [facility]. If patient is seen in the ED during business hours. Please contact CHWs at [facility]. Care Recommendation: This patient has had 5 [...] care. E.D. VISIT COUNT ([address] [facility] 7 [facility]. TOTAL 8 NOTE: Visits indicate total known visits. ED/UCC VISIT TRACKING (12 MO.) 08/09/2019 19:17 [facility] [place] TYPE: Emergency COMPLAINT: - ALLERGIC REACTION TO FOOD 06/06/2019 20:05 [facility] [place] TYPE: Emergency COMPLAINT: - KNEE PAIN DIAGNOSES: - Allergy status to narcotic agent status - Other nursing home (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 - Sleep apnea, unspecified - Bipolar disorder, unspecified - Unspecified asthma, uncomplicated - Essential (primary) hypertension - Allergy status to analgesic agent status - Allergy status to oth drug/meds/biol subst status - Latex allergy status - Pain in right knee 05/25/2019 13:59 [facility] [place] TYPE: Emergency COMPLAINT: - HEMOGLOBIN CHECK DIAGNOSES: - Allergy status to narcotic agent status - Personal history of nicotine dependence - Essential (primary) hypertension - Bipolar disorder, unspecified - Exposure to other specified factors, initial encounter - Allergy status to analgesic agent status - Other nonmedicinal substance allergy status - Contusion of abdominal wall, initial encounter - Other remote computer terminal operator (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 - Latex allergy status 05/24/2019 20:31 [facility] [place] TYPE: Emergency COMPLAINT: - ABDOMINAL SWELLING AND BLEEDING DIAGNOSES: - Unspecified abdominal pain - Other remote computer terminal operator (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 - Essential (primary) hypertension - Bipolar disorder, unspecified - Unspecified asthma, uncomplicated - Allergy status to analgesic agent status - Allergy status to narcotic agent status - Sleep apnea, unspecified - Latex allergy status - Other nonmedicinal substance allergy status - Allergy status to oth drug/meds/biol subst status - Anemia, unspecified - Nontraumatic hematoma of soft tissue 05/21/2019 19:47 [facility] [place] TYPE: Emergency DIAGNOSES: - ABD PAIN 05/20/2019 22:32 [facility] [place] TYPE: Emergency COMPLAINT: - ABD PAIN DIAGNOSES: - Other nursing home (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 - Essential (primary) hypertension [...] substances - Sleep apnea, unspecified - Other nursing home (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 08/14/2018 22:35 [facility] [place] TYPE: Emergency COMPLAINT: - POST OP PROBLEM/INFECTION DIAGNOSES: - Other remote computer terminal operator (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 - Nicotine dependence, [...] visits to display in this time frame [email or web address]
[2019-08-09] MEDS ORDERED: EPIPEN 2-P0.3 MG/0.3 IM (21:26)
[2019-08-09] MEDS ORDERED: PREDNISONE20 MG PO (21:26)
== END 2019-08-09 22:03 | disposition home or self-care (01) ==
LOC: ED 19:16
DX: T78.1XXA Other adverse food reactions, not elsewhere classified, initial encounter (principal); R06.02 Shortness of breath; I10 Essential (primary) hypertension; F31.9 Bipolar disorder, unspecified; J45.909 Unspecified asthma, uncomplicated; G47.30 Sleep apnea, unspecified; F17.200 Nicotine dependence, unspecified, uncomplicated; Z88.8 Allergy status to other drugs, medicaments and biological substances; Z91.018 Allergy to other foods; Z91.040 Latex allergy status; Z91.048 Other nonmedicinal substance allergy status; Z88.5 Allergy status to narcotic agent; Z88.6 Allergy status to analgesic agent; Z79.899 Other long term (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
CPT/HCPCS: 99283; J7512

== ENCOUNTER 2020-03-16 00:11 | Emergency (ER) | payer BC ==
[~2020-03-16] VITALS: Ht 152.4 cm; Wt 111.1 kg
--- OUTSIDE RECORDS SUMMARY | ~2020-03-16 | XMS | Encounter Summary ---
Demographics + + + | Address | [address] | | | [place] [address] | + + + | Home Phone | | + + + | Preferred Language | Unknown | + + + | Marital Status | | + + + | Episcopalian Affiliation | 1027 | + + + | Race | Unknown | + + + | Ethnic Group | Unknown | + + + Author + + + | Author | [facility] | | | and [place] | + + + | Organization | [facility] | | | and [place] | + + + | Address | Unknown | + + + | Phone | Unavailable | + + + Support + + +---------+ + | Name | Relationship | Address | Phone | + + +---------+ + | Keya | ECON | Unknown | | | Moira | | | | + + +---------+ + Care Team Providers + +------+ + | Care Debt Counselor Name | Role | Phone | + +------+ + PCP | Unavailable | + +------+ + Encounter Details +--------+ + + + + | Date | Type | Department | Care Team | Description | +--------+ + + + + | 12/04/ | Hospital | [facility] | Handy Anderson P, | | | 1993 | Encounter | [facility] | DO [address] | | | | | GENERIC OP CONV DEPT | RD [place], [place] | | | | | [address] | [phone] | | | | | [place], [place] | | | | | | [address] | | | | | | [phone] | | | +--------+ + + + + Social History + +-------+ +--------+------+ | Tobacco Use | Types | Packs/Day | Years | Date | | | | | Used | | + +-------+ +--------+------+ | Never Assessed | | | | | + +-------+ +--------+------+ + + + | Sex Assigned at | Date Recorded | | | | + + + | Not on file | | + + + documented as of this encounter Plan of Treatment Not on filedocumented as of this encounter Visit Diagnoses Not on filedocumented in this encounter"
--- OUTSIDE RECORDS SUMMARY | ~2020-03-16 | XMS | Encounter Summary ---
Demographics + + + | Address | [address] | | | [place] [address] | + + + | Home Phone | | + + + | Preferred Language | Unknown | + + + | Marital Status | | + + + | Latter Day Affiliation | LDS | + + + | Race | White | + + + | Ethnic Group | Not or | + + + Author + + + | Author | [facility] | + + + | Organization | [facility] | + + + | Address | Unknown | + + + | Phone | Unavailable | + + + Support + + +---------+ + | Name | Relationship | Address | Phone | + + +---------+ + | Keya | ECON | Unknown | | | Moira | | | | + + +---------+ + | Andrea Villegas | ECON | Unknown | | + + +---------+ + | Zina Barnett | ECON | Unknown | | + + +---------+ + Care Team Providers + +------+ + | Care Vice President Of Development Name | Role | Phone | + +------+ + | Marixa Weber MD | PCP | | + +------+ + Encounter Details +--------+ + + + + | Date | Type | Department | Care Team | Description | +--------+ + + + + | 08/28/ | Document-Sc | UNKNOWN DEPARTMENT | Other, Faculty | | | 2014 | anned | [address] [facility] | [phone] | | | | | [address] | | | | | | [place], [place] | | | | | | [address] | | | +--------+ + + + [...] on file | | + + + + + + + | Job Start Date | Occupation | Industry | + + + + | Not on file | Not on file | Not on file | + + + + + + + + | Travel History | Travel Start | Travel End | + + + + + + | No recent travel history available. | + + documented as of this encounter Plan of Treatment Not on filedocumented as of this encounter Visit Diagnoses Not on filedocumented in this encounter"
--- OUTSIDE RECORDS SUMMARY | ~2020-03-16 | XMS | Clinical Summary ---
Demographics + + + | Address | [address] | | | [place] [address] | + + + | Home Phone | | + + + | Preferred Language | Unknown | + + + | Marital Status | | + + + | Jewish Affiliation | 1027 | + + + | Race | Unknown | + + + | Ethnic Group | Unknown | + + + Author + + + | Author | [facility] | | | and [place] | + + + | Organization | [facility] | | | and [...] Team Providers + +------+ + | Care Control Tower Radio Operator Name | Role | Phone | + +------+ + | Ronda Wade MD | PCP | | + +------+ + Allergies + + + + + + | Active Allergy | Reactions | Severity | Noted | Comments | | | | | Date | | + + + + + + | Adhesive & Tape | Rash | Low | //20 | Paper tape okay | | | | | 17 | | + + + + + + | Codeine | Nausea Only | Low | 09/21/19 | | | | | | 15 | | + + + + + + | Oxycodone | Other (See Comments) | Medium | 05/05/20 | Dizzy and | | | | | 17 | vomitting | + + + + + + | Zinc | Other (See Comments) | Medium | 05/05/20 | Patient feels | | | | | 17 | intoxicated | + + + + + + Medications + + + +---------+------+------+-------+ | Medication | Sig | Dispensed | Refills | Star | End | Statu | | | | | | t | Date | s | | | | | | Date | | | + + + +---------+------+------+-------+ | gabapentin | Take 600 mg by mouth | | 0 | 11/2 | | Activ | | (NEURONTIN) 300 mg | nightly. | | | 0/20 | | e | | capsule | | | | 14 | | | + + + +---------+------+------+-------+ | albuterol | Inhale 2 puffs into | | 0 | | | Activ | | (VENTOLIN HFA) 90 | the lungs every 4 | | | | | e | | mcg/puff inhaler | hours as needed for | | | | | | | | Wheezing. | | | | | | + + + +---------+------+------+-------+ | omeprazole | Take 20 mg by mouth | | 0 | | | Activ | | (PRILOSEC) 20 mg | Daily as needed. | | | | | e | | capsule | | | | | | | + + + +---------+------+------+-------+ | SUMAtriptan | Take 50 mg by mouth | | 0 | | | Activ | | (IMITREX) 50 mg | as needed for | | | | | e | | tablet | Migraine. | | | | | | + + + +---------+------+------+-------+ | Multiple Vitamin | Take by mouth. | | 0 | | | Activ | | (MULTI-VITAMIN PO) | | | | | | e | + + + +---------+------+------+-------+ | | Take 25 mg by mouth | | 0 | | | Activ | | hydroCHLOROthiazide | Daily. | | | | | e | | 25 mg tablet | | | | | | | + + + +---------+------+------+-------+ | diazePAM (VALIUM) | Take 5 mg by mouth | | 0 | | | Activ | | 5 mg tablet | every 8 hours as | | | | | e | | | needed. | | | | | | + + + +---------+------+------+-------+ | traMADol (ULTRAM) | Take 50 mg by mouth | | 0 | | | Activ | | 25 mg TABS | Twice daily as | | | | | e | | | needed (pain). | | | | | | + + + +---------+------+------+-------+ | | Take 500 mg by mouth | | 0 | | | Activ | | QBCV-Zvewopto-Ozxqsk | as needed (pain). | | | | | e | | mine (PAMPRIN | | | | | | | | MULTI-SYMPTOM PO) | | | | | | | + + + +---------+------+------+-------+ | acetaminophen | Take 500-1,000 mg by | | 0 | | | Activ | | (TYLENOL) 500 mg | mouth every 6 hours | | | | | e | | tablet | as needed. | | | | | | + + + +---------+------+------+-------+ | ondansetron | As needed for | 2 | 0 | 10/0 | | Activ | | (ZOFRAN) 4 mg tablet | nausea; stop prep; | tablet | | 4/20 | | e | | | take 1 tablet; wait | | | 17 | | | | | 30 min then resume | | | | | | | | prep; repeat 1x prn | | | | | | + + + +---------+------+------+-------+ | POTASSIUM PO | Take 99 mg by mouth | | 0 | | | Activ | | | nightly. | | | | | e | + + + +---------+------+------+-------+ Active Problems + + + | Problem | Noted Date | + + + | PCOS (polycystic ovarian syndrome) | 06/01/2017 | + + + | Fibromyalgia | 06/01/2017 | + + + | Obstructive sleep apnea | 06/01/2017 | + + + + + | Overview: no CPAP | + + + + + | Restless leg syndrome | 06/01/2017 | + + + | H/O Fusion of Cervical spine | 06/01/2017 | + + + | Memory loss, short term | 06/01/2017 | + + + + + | Overview: short term | + + + + + | Asthma - INHALERS used | 06/01/2017 | + + + | H/O Colon polyp - 2016 | 06/01/2017 | + + + + + | Overview: Colonoscopy - adenomatous sigmoid polyp - May 2017 | + + + + + | Smoker - Light Daily use | 06/01/2017 | + + + | Diarrhea, unspecified type | 05/10/2017 | + + + | Elevated cholesterol with elevated triglycerides | 05/10/2017 | + + + | Obesity, morbid, BMI 40.0-49.9 | 05/10/2017 | + + + | Abdominal pain, epigastric | 05/10/2017 | + + + | Bipolar disorder | 05/10/2017 | + + + | LAP-BAND surgery status | 05/10/2017 | + + + | Incontinence of feces with fecal urgency | 05/10/2017 | + + + | Family history of autoimmune disorder | 05/10/2017 | + + + | H/O Benign Brain Tumor - exc 2015 | 08/20/2014 | + + + + + | Overview: Brain Tumor Excision 2015 at [facility] | + + + + + | Brain tumor | 08/20/2014 | + + + Family History + + +------+ + | Medical History | Relation | Name | Comments | + + +------+ + | Heart attack | Father | | | + + +------+ + | Stroke | Father | | | + + +------+ + | Diabetes | Mother | | | + + +------+ + | Hypertension | Mother | | | + + +------+ + | Cancer | Other | | | + + +------+ + + +------+ + + | Relation | Name | Status | Comments | + +------+ + + | Father | | | | | | | (Age | | | | | 56) | | + +------+ + + | Mother | | Alive | | + +------+ + + | Other | | | | + +------+ + + Social History + + + +--------+------+ | Tobacco Use | Types | Packs/Day | Years | Date | | | | | Used | | + + + +--------+------+ | Light Tobacco Smoker | Cigarettes | | | | + + + +--------+------+ + +---+---+---+ | Smokeless Tobacco: | | | | | Never Used | | | | + +---+---+---+ + + +---------+ + | Alcohol Use | Drinks/Week | oz/Week | Comments | + + +---------+ + | No [...] + + + | Blood Pressure | 147/94 | 06/01/2017 12:00 PM | | | | | PDT | | + + + + + | Pulse | 71 | 06/01/2017 12:00 PM | | | | | PDT | | + + + + + | Temperature | 36.4 C (97.5 F) | 06/01/2017 11:47 AM | | | | | PDT | | + + + + + | Respiratory Rate | 16 | 06/01/2017 11:47 AM | | | | | PDT | | + + + + + | Oxygen Saturation | 97% | 06/01/2017 12:00 PM | | | | | PDT | | + + + + + | Inhaled Oxygen | - | - | | | Concentration | | | | + + + + + | Weight | 102.3 kg (225 lb 8.5 | 06/01/2017 9:47 AM | | | | oz) | PDT | | + + + + + | Height | 152.4 cm (5') | 06/01/2017 9:47 AM | | | | | PDT | | + + + + + | Body Mass Index | 44.05 | 06/01/2017 9:47 AM | | | | | PDT | | + + + + + Plan of Treatment + + +-------+ + | Health Maintenance | Due Date | Last | Comments | | | | Done | | + + +-------+ + | Vaccine: | | | | | Dtap/Tdap/Td (1 - | 1 | | | | Tdap) | | | | + + +-------+ + | Cervical Cancer | | | | | Screening (Pap) | 2 | | | + + +-------+ + | Breast Cancer | | | | | Screening | 7 | | | + + +-------+ + | Vaccine: Influenza | | | | | (#1) | 0 | | | + + +-------+ + Results Not on filefrom Last 3 Months Insurance +-------+--------+ +--------+-------+---------+------+ | Payer | Benefi | Subscriber | Effect | Phone | Address | Type | | | t Plan | ID | sofie | | | | | | / | | Dates | | | | | | Group | | | | | | +-------+--------+ +--------+-------+---------+------+ | BCBS | BCBS | [id number] | | | | PPO | | | OOS | 1 | [id number]-Pr | | | | | | PPO | | esent | | | | +-------+--------+ +--------+-------+---------+------+ + +--------+ +--------+ + + | Guarantor Name | Accoun | Relation to | Date | Phone | Billing Address | | | t Type | Patient | of | | | | | | | | | | + +--------+ +--------+ + + | Mendoza Villegas | Person | Self | [birth year] | [address], | | | al/Chris | | 1971 | [phone] | [address] [place] | | | meredith | | | 1 (Home) | [phone] | + +--------+ +--------+ + + Advance Directives + + + + + | Type | Date Recorded | Patient | Explanation | | | | Trimming Assembler | | + + + + + | Power of | | | | | Maintenance Specialist | | | | + + + + + | Advance | 06/01/2017 | | | | Directive | 9:25 AM | | | + + + + +"
--- OUTSIDE RECORDS SUMMARY | ~2020-03-16 | XMS | Encounter Summary ---
Demographics + + + | Address | [address] | | | [place] [address] | + + + | Home Phone | | + + + | Preferred Language | Unknown | + + + | Marital Status | | + + + | Yarsanism Affiliation | LDS | + + + | Race | White | + + + | Ethnic Group | Not or | + + + Author + + + | Author | [facility] | + + + | Organization | [facility] | + + + | Address | [...] Team Providers + +------+ + | Care Sales Floor Team Leader Name | Role | Phone | + +------+ + | Ashwini Ochoa NP | PCP | | + +------+ + Encounter Details +--------+ + + + + | Date | Type | Department | Care Team | Description | +--------+ + + + + | 10/16/ | Document-Sc | UNKNOWN DEPARTMENT | Unknown . | | | 2014 | anned | [id number] | | | | [address] | | | | | | [place], [place] | | | | | | [address] | | | +--------+ + + + + Social History + + + +--------+------+ | Tobacco Use | Types | Packs/Day | Years | Date | | | | | Used | | + + + +--------+------+ | Current Every Day | Cigarettes | 0.25 | 2 | | | Smoker | | | | | + + [...] Not on filedocumented as of this encounter Procedures + +--------+ + + + | Procedure Name | Priori | Date/Time | Associated Diagnosis | Comments | | | ty | | | | + +--------+ + + + | LAB REPORTS | | 10/12/2014 | | Results for this | | | | 12:00 AM | | procedure are in the | | | | PDT | | results section. | + +--------+ + + + documented in this encounter Results LAB REPORTS (10/12/2014 12:00 AM PDT) + + + | Narrative | Performed At | + + + | | | | | | + + + + + | Procedure Note | + + | Allan Anthony - 10/19/2014 8:06 AM PDT | + + documented in this encounter Visit Diagnoses Not on filedocumented in this encounter"
--- OUTSIDE RECORDS SUMMARY | ~2020-03-16 | XMS | Encounter Summary ---
Demographics + + + | Address | [address] | | | [place] [address] | + + + | Home Phone | | + + + | Preferred Language | Unknown | + + + | Marital Status | | + + + | Congregational Affiliation | LDS | + + + | Race | White | + + + | Ethnic Group | Not or | + + + Author + + + | Author | [facility] | + + + | Organization | [facility] | + + + | Address [...] Team Providers + +------+ + | Care Typewriter Repairer Name | Role | Phone | + +------+ + | Marixa Weber MD | PCP | | + +------+ + Encounter Details +--------+ + + + + | Date | Type | Department | Care Team | Description | +--------+ + + + + | 10/28/ | Pharmacy | Outpatient Retail | | | | 2014 | Visit | [facility] | | | | | | [address] | | | | | | [address] [place], [place] | | | | | | [address] | | | | | | [phone] | | | +--------+ + + + [...]
--- OUTSIDE RECORDS SUMMARY | ~2020-03-16 | XMS | Encounter Summary ---
Demographics + + + | Address | [address] | | | [place] [address] | + + + | Home Phone | | + + + | Preferred Language | Unknown | + + + | Marital Status | | + + + | Episcopal Affiliation | LDS | + + + [...] Team Providers + +------+ + | Care Turpentine Distiller Name | Role | Phone | + [...] Pharmacy | | | | | | [address] | | | | | | [address] [place], [place] | | | | | | [address] | | | | | | [phone] | | | +--------+ + + + [...]
--- OUTSIDE RECORDS SUMMARY | ~2020-03-16 | XMS | Encounter Summary ---
Demographics + + + | Address | [address] | | | [place] [address] | + + + | Home Phone | | + + + | Preferred Language | Unknown | + + + | Marital Status | | + + + | Anglican Affiliation | LDS | + + + | Race | White | + + + | Ethnic Group | Not or | + + + Author + + + | Author | [facility] | + + + | Organization | [facility] | + + + | Address [...] Team Providers + +------+ + | Care Back Shoe Worker Name | Role | Phone | + [...] [address] | | | | | | [place], [place] | | | | | | [address] | | | +--------+ + + + [...]
--- OUTSIDE RECORDS SUMMARY | ~2020-03-16 | XMS | Encounter Summary ---
Demographics + + + | Address | [address] | | | [place] [address] | + + + | Home Phone | | + + + | Preferred Language | Unknown | + + + | Marital Status | | + + + | Druze Affiliation | 1027 | + + + | Race | Unknown | + + + | Ethnic Group | Unknown | + + + Author + + + | Author | [facility] | | | and [place] | + + + | Organization | [facility] | | | and [...] Team Providers + +------+ + | Care Crap Game Box Person Name | Role | Phone | + +------+ + PCP | Unavailable | + +------+ + Encounter Details +--------+ + + + + | Date | Type | Department | Care Team | Description | +--------+ + + + + | 07/14/ | Hospital | [facility] GENERIC IP | Conversion | Pain | | 2014 | Encounter | CONVERSION DEP [address] | Transaction, | | | | | [address] | Provider Unknown | | | | | [place] | | | | | | [address] | (Fax) | | | | | [phone] | | | +--------+ + + + [...] + + +---------+ + + | gabapentin | Take 600 mg by mouth | | 0 | 06/21/20 | | | (NEURONTIN) 300 mg | nightly. | | | 14 | | | [...] | + +--------+ + + + | MRI BRAIN W WO | Routin | 06/07/2014 | | Results for this | | CONTRAST | e | 1:08 AM | | procedure are in the | | | | PST | | results section. | + +--------+ + + + documented in this encounter Results MRI Brain w wo Contrast (06/07/2014 1:08 AM PST) + + | Specimen | + + | | + + + + + | Narrative | Performed At | + + + | This is a non-reportable procedure without a radiologist report and | | | is used for image storage only | | + + + + + | Procedure Note | + + | Juan Stahl Solange - 03/17/2019 4:44 PM PDT This is a non-reportable procedure | | without a radiologist report and isused for image storage only | + + documented in this encounter Visit Diagnoses + + | Diagnosis | + + | Pain Generalized pain | + + documented in this encounter"
--- OUTSIDE RECORDS SUMMARY | ~2020-03-16 | XMS | Encounter Summary ---
Demographics + + + | Address | [address] | | | [place] [address] | + + + | Home Phone | | + + + | Preferred Language | Unknown | + + + | Marital Status | | + + + | Hoahaoism Affiliation | LDS | + + + [...] Team Providers + +------+ + | Care Hemstitching Machine Operator Name | Role | Phone | [...] Medication Refill | | 2014 | | [facility] [address] | [address] | | | | | [facility] | [place], [place] | | | | | Health and Healing, | [address] | | | | | [facility] | [phone] | | | | | floor [place], [place] | | | | | | [address] | | | | | | [phone] | | | +--------+ + + + [...]
--- OUTSIDE RECORDS SUMMARY | ~2020-03-16 | XMS | Encounter Summary ---
Demographics + + + | Address | [address] | | | [place] [address] | + + + | Home Phone [...] Team Providers + +------+ + | Care Operational Test Mechanic Name | Role | Phone | + [...] Refill Request | | 2014 | | [facility] [address] | [address] | | | | | [facility] for | [place], [place] | | | | | Health and Healing, | [address] | | | | | [facility] | [phone] | | | | | [place], [place] | | | | | | [address] | | | | | | [phone] | | | +--------+ + + + [...]
--- OUTSIDE RECORDS SUMMARY | ~2020-03-16 | XMS | Encounter Summary ---
Demographics + + + | Address | [address] | | | [place] [address] | + + + | Home Phone | | + + + | Preferred Language | Unknown | + + + | Marital Status | | + + + | Anglican Affiliation | 1027 | + + + | Race | Unknown | + + + | Ethnic Group | Unknown | + + + Author + + + | Author | [facility] | | | and [place] | + + + | Organization | [facility] | | | [...] Team Providers + +------+ + | Care Drug Clerk Name | Role | Phone | + +------+ + PCP | Unavailable | + +------+ + Encounter Details +--------+ + + + + | Date | Type | Department | Care Team | Description | +--------+ + + + + | 09/22/ | Hospital | [facility] | Handy Anderson P, | | | 1993 | Encounter | [facility] | DO [address] | | | | | GENERIC OP CONV DEPT | RD [place], [place] | | | | | [address] | [phone] | | | | | [place], [place] | | | | | | [address] | | | | | | [phone] | | | +--------+ + + + [...]
--- OUTSIDE RECORDS SUMMARY | ~2020-03-16 | XMS | Clinical Summary ---
Demographics + + + | Address | [address] | | | [place] [address] | + + + | Home Phone | | + + + | Preferred Language | Unknown | + + + | Marital Status | | + + + | Adventism Affiliation | LDS | + + + | Race | White | + + + | Ethnic Group | Not or | + + + Author + + + | Author | [facility] | + + + | Organization | [facility] | + + + | Address | [...] Team Providers + +------+ + | Care Site Auditor Name | Role | Phone | + +------+ + | Marixa Weber MD | PCP | | + +------+ + Source Comments LIZZJUAN is fully live on both [facility] Allergies + + + + + + | Active Allergy | Reactions | Severity | Noted | Comments | | | | | Date | | + + + + + + | Codeine | Nausea | | 02/20/20 | | | | | | 15 | | + + + + + + Medications + + + +---------+------+------+-------+ | Medication | Sig | Dispensed | Refills | Star | End | Statu | | | | | | t | Date | s | | | | | | Date | | | + + + +---------+------+------+-------+ | ZIPRASIDONE 80 mg | Take 160 mg by mouth | | 0 | 02/0 | | Activ | | oral capsule | once daily at | | | 520 | | e | | | bedtime. | | | 15 | | | + + + +---------+------+------+-------+ | TRAMADOL 50 mg | Take 50 mg by mouth | | 0 | 02/1 | | Activ | | oral tablet | every six hours as | | | 620 | | e | | | needed. | | | 15 | | | + + + +---------+------+------+-------+ | TOPIRAMATE 25 mg | 50 mg two times | | 0 | 02/0 | | Activ | | oral tablet | daily. 2 tabs=50 mg | | | 4/20 | | e | | | BID | | | 15 | | | + + + +---------+------+------+-------+ | LORAZEPAM 1 mg | Take 1 mg by mouth | | 0 | 01/2 | | Activ | | oral tablet | every six hours as | | | 2/20 | | e | | | needed (as needed & | | | 15 | | | | | @ HS). | | | | | | + + + +---------+------+------+-------+ | LITHIUM CARBONATE | Take 600 mg by mouth | | 0 | 12/3 | | Activ | | 300 mg oral capsule | once daily at | | | 0/20 | | e | | | bedtime. 2 zlip=608 | | | 14 | | | | | mg | | | | | | + + + +---------+------+------+-------+ | LANSOPRAZOLE 30 mg | Take by mouth once | | 0 | 02/0 | | Activ | | oral | daily at bedtime. | | | 3/20 | | e | | capsule,delayed | | | | 15 | | | | release(DR/EC) | | | | | | | + + + +---------+------+------+-------+ | ergocalciferol | Take 50,000 Units by | | 0 | 10/3 | | Activ | | 50,000 unit oral | mouth once a week. | | | 0/20 | | e | | capsule | | | | 14 | | | + + + +---------+------+------+-------+ | gabapentin 300 mg | 900 mg once daily at | | 0 | 11/2 | | Activ | | oral capsule | bedtime. | | | 0/20 | | e | | | | | | 14 | | | + + + +---------+------+------+-------+ | DULoxetine 60 mg | 60 mg once daily in | | 0 | 11/2 | | Activ | | oral capsule,delayed | the morning. | | | 0/20 | | e | | release(DR/EC) | | | | 14 | | | + + + +---------+------+------+-------+ | buPROPion XL 300 | 300 mg once daily in | | 0 | 11/2 | | Activ | | mg oral tablet | the morning. | | | 0/20 | | e | | extended release 24 | | | | 14 | | | | hr | | | | | | | + + + +---------+------+------+-------+ | Acetaminophen 500 | Take 500 mg by mouth | | 0 | | | Activ | | mg oral capsule | every six hours as | | | | | e | | | needed. | | | | | | + + + +---------+------+------+-------+ | omeprazole | Take 20 mg by mouth | | 0 | | | Activ | | magnesium (PRILOSEC | once daily in the | | | | | e | | OTC) 20 mg oral | morning. | | | | | | | tablet,delayed | | | | | | | | release (DR/EC) | | | | | | | + + + +---------+------+------+-------+ | | Take by mouth as | | 0 | | | Activ | | ACETAMINOPHEN/PYRILA | needed. | | | | | e | | M/PAMABROM (PAMPRIN | | | | | | | | MULTI-SYMPTOM ORAL) | | | | | | | + + + +---------+------+------+-------+ | PEDIATRIC MULTIVIT | Take by mouth once | | 0 | | | Activ | | COMB #19/FA | daily in the | | | | | e | | (CHILDREN'S | morning. | | | | | | | MULTI-VIT GUMMIES | | | | | | | | ORAL) | | | | | | | + + + +---------+------+------+-------+ | CA | Take by mouth three | | 0 | | | Activ | | CARBONATE/VITAMIN | times daily. | | | | | e | | D3/VIT K (VIACTIV | | | | | | | | ORAL) | | | | | | | + + + +---------+------+------+-------+ | ASCORBIC ACID | Take by mouth once | | 0 | | | Activ | | (VITAMIN C ORAL) | daily in the | | | | | e | | | morning. | | | | | | + + + +---------+------+------+-------+ | silver | Apply to affected | | 0 | | | Activ | | sulfaDIAZINE | area once daily in | | | | | e | | (SILVADENE) 1 % | the morning. Apply | | | | | | | topical cream | with a | | | | | | | | sterile-gloved hand; | | | | | | | | Burned area should | | | | | | | | be covered with | | | | | | | | cream at all times. | | | | | | + + + +---------+------+------+-------+ | celecoxib 200 mg | Take 1 capsule by | | 0 | 03/2 | | Activ | | oral capsule | mouth once daily in | | | 920 | | e | | | the morning. May | | | 15 | | | | | resume 2 weeks after | | | | | | | | surgery | | | | | | + + + +---------+------+------+-------+ | senna-docusate | Take 1 tablet by | | 0 | 03/2 | | Activ | | 8.6-50 mg oral | mouth two times | | | 9/20 | | e | | tabletIndications: | daily. Indications: | | | 15 | | | | constipation | CONSTIPATION | | | | | | + + + +---------+------+------+-------+ | polyethylene | Take 17 g by mouth | 119 g | 0 | 03/2 | | Activ | | glycol 17 gram/dose | once daily as | | | 20 | | e | | oral | needed. Indications: | | | 15 | | | | powderIndications: | CONSTIPATION | | | | | | | constipation | | | | | | | + + + +---------+------+------+-------+ | dexamethasone 4 mg | Take 1 tablet by | 12 | 0 | 03/2 | | Activ | | oral tablet | mouth every six | tablet | | 920 | | e | | | hours. Take 1 tablet | | | 15 | | | | | by mouth every 8 | | | | | | | | hours for 2 days. | | | | | | | | Take 1 tablet by | | | | | | | | mouth once daily for | | | | | | | | 2 days. | | | | | | + + + +---------+------+------+-------+ | tiZANidine 2 mg | Take 1 tablet by | 60 | 0 | 03/2 | | Activ | | oral tablet | mouth three times | tablet | | 9/20 | | e | | | daily as needed. | | | 15 | | | | | Max: 36 mg / day. | | | | | | + + + +---------+------+------+-------+ | pantoprazole 20 mg | | | 0 | 10/1 | | Activ | | oral tablet,delayed | | | | 6/20 | | e | | release (DR/EC) | | | | 15 | | | + + + +---------+------+------+-------+ | ZIPSOR 25 mg oral | | | 0 | 11/0 | | Activ | | capsule | | | | 9/20 | | e | | | | | | 15 | | | + + + +---------+------+------+-------+ | cloNIDine HCl 0.1 | | | 0 | 11/0 | | Activ | | mg oral tablet | | | | 6/20 | | e | | | | | | 15 | | | + + + +---------+------+------+-------+ | L-METHYLFOLATE 15 | | | 0 | 10/0 | | Activ | | mg oral tablet | | | | 9/20 | | e | | | | | | 15 | | | + + + +---------+------+------+-------+ Active Problems + + + | Problem | Noted Date | + + + | Neoplasm of brain | 08/20/2014 | + + + Social History + + [...] | | | + +---+---+---+ + + | Tobacco Cessation: Ready to Quit: Yes | + + + + +---------+ + | Alcohol Use [...] + + + | Blood Pressure | 153/98 | 06/14/2015 1:32 PM | | | | | PST | | + + + + + | Pulse | 93 | 06/14/2015 1:32 PM | | | | | PST | | + + + + + | Temperature | 36.4 C (97.6 F) | 06/14/2015 1:32 PM | | | | | PST [...] + + + + | Weight | 103.4 kg (227 lb | 06/14/2015 1:32 PM | | | | 15.3 oz) | PST | | + + + + + | Height | 154.9 cm (5' 1") | 10/25/2014 5:00 AM | | | | | PDT | | + + + + + | Body Mass Index | 43.07 | 10/25/2014 5:00 AM | | | | | PDT | | + + + + + Plan of Treatment + + + + + | Health Maintenance | Due Date | Last Done | Comments | + + + + + | Pneumococcal | | | | | vaccination (1 of 1 | 8 | | | | - PPSV23) | | | | + + + + + | Influenza (Flu) | | | | | vaccination (#1) | 9 | | | + + + + + Implants + +------+-------+ +--------+--------+--------+ | Implanted | Type | Area | Manufacture | Device | Shelf | Model | | | | | r | | Expira | / | | | | | | Identi | tion | Serial | | | | | | fier | Date | / Lot | + +------+-------+ +--------+--------+--------+ | Implant Duragen Suturable 3 X | | N/A: | [id number] | | 12/29/ | [id number] | | 3 - [id number]: Qty: | | Head | LIFESCIENCE | | 2017 | 91 / | | 1 on 2014 by Santos, | | | S | | | /[id number] | | MD Bart at [facility] | | | | | | 70 | | REV LOC | | | | | | | + +------+-------+ +--------+--------+--------+ | Mesh Contour [id number] | | N/A: | [employer] [place] | | | 04.503 | | Malleable Matrix Neuro - | | Head | | | | .083 / | | [id number]: Qty: 1 on | | | | | | / | | 2014 by Bart Graham | | | | | | | | at [facility] INPATIENT REV LOC | | | | | | | + +------+-------+ +--------+--------+--------+ | Screw 04mm Ti Self-Drill | | N/A: | [employer] | | | 04.503 | | Matrix Neuro - | | Head | | | | .104.0 | | [id number]: Qty: 6 on | | | | | | 1 / / | | 2014 by Bart Graham, | | | | | | | | at [facility] REV LOC | | | | | | | + +------+-------+ +--------+--------+--------+ Results Not on filefrom Last 3 Months Insurance + +--------+ +--------+ + +------+ | Payer | Benefi | Subscriber | Effect | Phone | Address | Type | | | t Plan | ID | sofie | | | | | | / | | Dates | | | | | | Group | | | | | | + +--------+ +--------+ + +------+ | BLUE CROSS BLUE | BCBS | [phone] | | [phone] | [address] | PPO | | SHIELD | OUT OF | [phone] | | | | STATE | | esent | | [place] | | | | | | | | [place] | | | | | | | | [id number] | | + +--------+ +--------+ + +------+ + +--------+ +--------+ + + | Guarantor Name | Accoun | Relation to | Date | Phone | Billing Address | | | t Type | Patient | of | | | | | | | | | | + +--------+ +--------+ + + | Mendoza Villegas | Person | Self | [birth year] | [address] | | | al/Fam | | 1971 | [phone] | [address] [place] | | | meredith | | | 1 (Home) | [phone] | + +--------+ +--------+ + + Advance Directives + + + + + | Code Status | Date | Date | Comments | | | Activated | Inactivated | | + + + + + | Full Code | 2014 | 10/28/2014 | | | | 6:19 PM | 7:29 PM | | + + + + + + + + +---+ | | | | | + + + +---+ | Full Code | 2014 | 2014 | | | | 5:59 AM | 6:19 PM | | + + + +---+
--- OUTSIDE RECORDS SUMMARY | ~2020-03-16 | XMS | Encounter Summary ---
Demographics + + + | Address | [address] | | | [place] [address] | + + + | Home Phone | | + + + | Preferred Language | Unknown | + + + | Marital Status | | + + + | Latter Day Affiliation | 1027 | + + + | Race | Unknown | + + + | Ethnic Group | Unknown | + + + Author + + + | Author | [facility] | | | and [place] | + + + | Organization | [facility] | | [...] Team Providers + +------+ + | Care Tomographic Tech Name | Role | Phone | + +------+ + PCP | Unavailable | + +------+ + Encounter Details +--------+ + + + + | Date | Type | Department | Care Team | Description | +--------+ + + + + | 10/26/ | Hospital | [facility] | Handy Anderson P, | | | 1993 | Encounter | [facility] | DO [address] | | | | | GENERIC OP CONV DEPT | RD [place], [place] | | | | | [address] | [phone] | | | | | [place], [place] | | | | | | [address] | | | | | | [phone] | | | +--------+ + + + [...]
--- OUTSIDE RECORDS SUMMARY | ~2020-03-16 | XMS | Encounter Summary ---
Demographics + + + | Address | [address] | | | [place] [address] | + + + | Home Phone | | + + + | Preferred Language | Unknown | + + + | Marital Status | | + + + | Alevism Affiliation | LDS | + + + | Race | White | + + + | Ethnic Group | Not or | + + + Author + + + | Author | [facility] | + + + | Organization | [facility] | + + + | Address [...] Team Providers + +------+ + | Care Solar Electric Installer Name | Role | Phone | + +------+ + | Ashwini Ochoa NP | PCP | | + +------+ + Reason for Referral Consultation (Routine) +--------+--------+ + + + + | Status | Reason | Specialty | Diagnoses / | Referred By | Referred To | | | | | Procedures | Contact | Contact | +--------+--------+ + + + + | Closed | | [facility] | Diagnoses | Santos, | Ann | | | | | Bilateral | MD Cristopher | Genetics 707 | | | | | leg edema | [address] | [address] | | | | | Procedures | Veterans | Mailcode: | | | | | CONSULT TO | Hospital | [facility] | | | | | [facility] | Road | [place], [place] | | | | | GENETICS | [place], [place] | [address] | | | | | | [address] | Phone: | | | | | | Phone: | [phone] | | | | | | [phone] | Fax: | | | | | | Fax: | [phone] | | | | | | [phone] | | +--------+--------+ + + + + Diagnostic Testing (Routine) +--------+--------+ + + + + | Status | Reason | Specialty | Diagnoses / | Referred By | Referred To | | | | | Procedures | Contact | Contact | +--------+--------+ + + + + | Closed | | Radiology | Diagnoses | Mackenzie, | Zzrad Vasc | | | | | Bilateral | Nury Harrell, | Lab [address] | | | | | leg edema | [place] [address] | [address] | | | | | Procedures | [address] | Loop | | | | | VASC LAB | [address] | Mailcode: | | | | | VENOUS | [place], [place] | [address] | | | | | DUPLEX LOWER | [address] | Physician's | | | | | EXTREMITY | Phone: | Pavilion | | | | | BILAT COMP | [phone] | [place], [place] | | | | | | Fax: | [address] | | | | | | [phone] | Phone: | | | | | | | [phone] | | | | | | | Fax: | | | | | | | [phone] | +--------+--------+ + + + + Reason for Visit +---------+ + | Reason | Comments | +---------+ + | Post Op | | +---------+ + Encounter Details +--------+---------+ + + + | Date | Type | Department | Care Team | Description | +--------+---------+ + + + | 11/16/ | Office | Neurosurgery at | Cristopher Mckinney MD | Bilateral leg edema | | 2015 | Visit | [facility] [address] | [address] | (Primary Dx) | | | | [facility] for | [place], [place] | | | | | Health and Healing, | [address] | | | | | [facility] | [phone] | | | | | floor [place], [place] | | | | | | [address] | | | | | | [phone] | | | +--------+---------+ + + + [...] + + + | Blood Pressure | 158/96 | 11/16/2014 12:52 PM | | | | | PDT | | + + + + + | Pulse | 104 | 11/16/2014 12:52 PM | | | | | PDT [...] + + + + | Weight | 103.6 kg (228 lb 4.8 | 11/16/2014 12:52 PM | | | | oz) | PDT | | + + + + + | Height | - | - | | + + + + + | Body Mass Index | 43.14 | 10/25/2014 5:00 AM | | | | | PDT | | + + + + + documented in this encounter Progress Notes Cristopher Mckinney MD - 11/17/2014 2:21 PM PDTMsItalia Villegas is doing very well 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 No CSF leak. Improved headaches. Please see Ms. Love' note for details. I spent 15 minutes with the patient. 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 Nury Acosta PA - 11/16/2014 12:48 PM PDT NEUROLOGICAL SURGERY PROGRESS NOTE-POST OP Author: NURY HILL PA-C Attending: CRISTOPHER MCKINNEY MD Procedure Performed: 1. Suboccipital craniectomy and C1 laminectomy. 2. Resection of 4th ventricular mass. 3. Titanium mesh cranioplasty. Date of Procedure: 10/24/14 Subjective: Mendoza Villegas is a 44 y.o. 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 Patient reports significant headache, "all over". The headaches are worse when she changes position, better when she is lying down and able to get comfortable. She does feel the pain is improving compared to imm ediately post op, however. She also reports gait imbalance, however, had been using a cane pre op due to knee problems. She notes ongoing blurred vision, primarily when gazing at a d istance (right or left). Patient denies problems with surgical incision, such as drainage, pain, or swelling. Past Medical History Diagnosis Date Brain tumor Headache Sleep apnea Anxiety Depression Bipolar disorder DDD (degenerative disc disease) Acetaminophen 500 mg [...] six hours. Take 1 tablet by [facility] every 8 hours for 2 days. Take 1 tablet by mouth once daily for 2 days. DULoxetine 60 mg oral capsule,delayed release(DR/EC), 60 mg once daily in the morning. ergocalciferol 50,000 unit oral capsule, Take 50,000 Units by mouth once a week. gabapentin 300 mg oral capsule, 900 mg once daily at bedtime. HYDROmorphone 2 mg oral tablet, Take 1 to 2 tablets by mouth every three hours as needed fo r severe pain. LANSOPRAZOLE 30 mg oral capsule,delayed release(DR/EC), Take [...] Apply to affected area once daily in th e morning. Apply with a sterile-gloved hand; Burned [...] mouth once daily at bedtime. Physical Exam: There were no vitals taken for this visit. General: Awake, alert and oriented to person, place and time HEENT: ROSALINA, gaze conjugate, EOM's intact, no nystagmus; able to count fingers; blurred vis ion with lateral gaze; faces symmetric Language: delayed processing; fluent and articulate without evidence of aphasia or dysarthr ia Motor: SAGE's, equal strength; no dysmetria/drift Derm: surgical incision clean/dry/intact; minimal surrounding erythema Vasc: Significant bilateral lower extremity edema, 2+ Assessment: Mendoza Villegas is a 44 y.o. 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 She is recovering as we would anticipate following neuro surgical intervention. She has no focal neuro deficits, but does still report headaches. 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 This is an ex tremely rare genetic condition that can be observed in patients with ependymoma. Plan: 1) Continue to monitor surgical incision and contact our office for increased pain, swell ing, redness, drainage, fevers. 2) Contact our office or present to [facility] Emergency Department for severe headache not rel ieved with pain medication, especially if also associated with nausea/emesis; altered mental status; other acute or worsening neurologic finding. 3) RTC in three months; surveillance MRI brain wwo in one year. 4) Have ordered BLE venous duplex ultrasound to evaluate for DVT. Elevated BLE to decre ase leg edema. Contact PCP for a clinic appointment as soon as possible. Present to ED or urgent care for shortness of breath, wheezing, worsening swelling, chest pain. 5) Refill dilaudid. 2 mg every 4 hours prn. #100, no refills before 12/01/14. OK for pat ient to take tylenol prn not to exceed > 3200 mg in a 24 hr period. 6) Have placed consultation for genetics testing. This patient was staffed with the attending physician, who also personally evaluated the karen jackson. Addendum: BLE venous duplex ultrasound negative for DVT. documented in this encounter Plan of Treatment Not on filedocumented as of this encounter Results VASC LAB VENOUS DUPLEX [...] | | + +---------+ + + | [facility] DEPARTMENT OF | | | | | RADIOLOGY | | | | + +---------+ + + documented in this encounter Visit Diagnoses + + | Diagnosis | + + | Bilateral leg edema - Primary Edema | + + documented in this encounter
--- OUTSIDE RECORDS SUMMARY | ~2020-03-16 | XMS | Encounter Summary ---
Demographics + + + | Address | [address] | | | [place] [address] | + + + | Home Phone | | + + + | Preferred Language | Unknown | + + + | Marital Status | | + + + | Yarsani Affiliation | LDS | + + + | Race | White | + + + | Ethnic Group | Not or | + + + Author + + + | Author | [facility] | + + + | Organization | [facility] | + + + | [...] Providers + +------+ + | Care Cook Fishing Vessel Name | Role | Phone | + [...] | | | | Subependymom | [place] [address] | | | | | | a (HCC) | [address] | | | | | | Procedures | [address] | | | | | | MRI BRAIN | [place], [place] | | | | | | TUMOR | [address] | | | | | | EVALUATION | Phone: | | | | | | [facility] CONTRAST | [phone] | | | | | | | Fax: | | | | | | | [phone] | | +--------+--------+ + + + + [...] (HCC) | | 2015 | Visit | [facility] [address] | [address] | (Primary Dx) | | | | [facility] for | [place], [place] | | | | | Health and Healing, | [address] | | | | | [facility] | [phone] | | | | | floor [place], [place] | | | | | | [address] | | | | | | [phone] | | | +--------+---------+ + + + [...] Cristopher Mckinney MD - 06/26/2015 11:20 AM PST. Bakari is doing great. Nodule is not [...] reports that she is doing well ov [facility]. She denies headaches currently. She does [...] every six hours. Take 1 tablet by [facility] every 8 hours for 2 days. Take [...] Apply to affected area once daily in e morning. Apply with a sterile-gloved hand; [...] also contact us to fax referral for [facility] in [facility]. 2) Contact our office or present to 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
--- OUTSIDE RECORDS SUMMARY | ~2020-03-16 | XMS | Encounter Summary ---
Demographics + + + | Address | [address] | | | [place] [address] | + + + | Home Phone | | + + + | Preferred Language | Unknown | + + + | Marital Status | | + + + | Episcopal Affiliation | 1027 | + + + [...] Team Providers + +------+ + | Care Stoner Out Name | Role | Phone | + +------+ + PCP | Unavailable | + +------+ + Encounter Details +--------+ + + + + | Date | Type | Department | Care Team | Description | +--------+ + + + + | 02/03/ | Hospital | [facility] | Handy Anderson P, | | | 1993 - | Encounter | [facility] | DO [address] | | | | | GENERIC OP CONV DEPT | RD [place], [place] | | | 02/04/ | | [address] | [address] | | | 1993 | | [place], [place] | | | | | | [address] | | | | | | [phone] | | | +--------+ + + + [...]
--- OUTSIDE RECORDS SUMMARY | ~2020-03-16 | XMS | Encounter Summary ---
Demographics + + + | Address | [address] | | | [place] [address] | + + + | Home Phone | | + + + | Preferred Language | Unknown | + + + | Marital Status | | + + + | Rastafarian Affiliation | 1027 | + + + | Race | Unknown | + + + | Ethnic Group | Unknown | + + + Author + + + | Author | [facility] | | | and [place] | + + + | Organization | [facility] | | | and [...] Team Providers + +------+ + | Care Motor Winder Name | Role | Phone | [...] | | 2013 | | [address] | [address] | | | | | [place] | [place] | | | | | [address] | [address] | | | | | [phone] | [phone] | | | | | | | [...] + + | COMPREHENSIVE | Routin | 04/27/2014 | | Results for this | | METABOLIC PANEL | e | 5:00 AM | | procedure are in the | | | | PDT | | results section. | + +--------+ + + + documented in this encounter Results Comprehensive Metabolic Panel (04/27/2014 5:00 AM PDT) + + + [...] + + + + | K | 4.2 | 3.5 - 4.9 | EXTERNAL | | | | | mmol/L | LAB | | + + + + + + | Cl | 104 | 99 - 109 mmol/L | EXTERNAL | | | | | | LAB | | + + + + + + | CO2 | 26 | 23 - 32 mmol/L | EXTERNAL | | | | | | LAB | | + + + + + + | Anion Gap | 9 | 5 - 20 mmol/L | EXTERNAL | | | | | | LAB | | + + + + + + | Glucose, | 135 (H) | 65 - 99 mg/dL | EXTERNAL | | | Fasting | | | LAB | | + + + + + + | BUN | 23 | 8 - 25 mg/dL | EXTERNAL | | | | | | LAB | | + + + + + + | Creatinine | 1.07 (H) | 0.50 - 1.00 | EXTERNAL | | | | | mg/dL | LAB | | + + + + + + | BUN/Creatin | 21 | | EXTERNAL | | | ine Ratio | | | LAB | | + + + + + + | Calcium | 8.9 | 8.5 - 10.2 | EXTERNAL | | | | | mg/dL | LAB | | + + + + + + | Protein, | 5.9 (L) | 6.3 - 8.2 g/dL | EXTERNAL | | | Total | | | LAB | | + + + + + + | Albumin | 3.0 (L) | 3.6 - 5.0 g/dL | EXTERNAL | | | | | | LAB | | + + + + + + | Globulin | 2.9 | 1.3 - 4.9 g/dL | EXTERNAL | | | | | | LAB | | + + + + + + | A/G Ratio | 1.0 | 1.0 - 2.4 | EXTERNAL | [...] + + + + | AST | 8 (L) | 10 - 45 U/L | EXTERNAL | | | | | | LAB | | + + + + + + | ALT | 7 (L) | 10 - 65 U/L | EXTERNAL | | | | | | LAB | | + + + + + + | Estimated | 60 (L)Comment: GFR <60: | mL/min/1.73m2 | EXTERNAL [...] | | | | | | at [facility], [address] | | | | | | [address], | | | | | | [place] [address] | | | | + + + [...]
--- OUTSIDE RECORDS SUMMARY | ~2020-03-16 | XMS | Encounter Summary ---
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 on 2014 for the procedures described above. [...] at 9:30am. We are located at the [facility], [address] [place] [address]. Address: [address] [place] [address]. Please call [phone] for questions o r concerns. 2. Follow up with your PCP to review your hospital course and medication changes. Please call to schedule this appointment. Future Appointments Date & Time Provider Department Dept Phone Center 11/09/2014 9:30 AM Bart Graham Neurosurgery at [facility] [phone] Neurosurgery Discharging Physician: JAIME HOWARD MD Attending [...] 14 | | | | bedtime. 2 [id number] | | | | | | | [...] issues Jaime Howard MD Neurosurgery Resident Pager #[phone] MEDICATIONS Current Facility-Administered Medications Medication acetaminophen (TYLENOL) [...] as described in the r esident note. OPaSachin ta MD - 7:35 PM PDT 7NSICU ATTENDING NEUROINTENSIVIST PROGRESS NOTE Team Pager: [phone] Attendin -------- EVENING NOTE -------- Date:10/25/2014 Critical [...] s/s of infection # Bipolar: Restart Wellbutrin, Hampshire, Duloxetine, Ziprasidone, and lorazepam (prn) # Lines: CVL (subclavian), matos, PIV - d/c matos Relevant Risks: This patient is currently at risk for the following: cerebral edema, hydroc ephalus, intracerebral hemorrhage and seizure; central line associated blood stream infectio n, DVT/Pulmonary embolism, ICU delirium and UTI. I spent 30 minutes actively involved in the care and management of this patient. Sachin Ward MD [facility] DEPARTMENT: [id number] ICU NEURO Place of Service:- Inpatient Date of Service: 10/25/2014 CSN: [id number] Suggested Modifier: None Suggested CPT: TO PECAN GROWER RELEVANT DATA: Last Vitals: BP 112/66 | [...] charting, and discussion with treatment decision maker. [facility] DEPARTMENT: [id number] CRITICAL CARE Place of Service: Inpatient Date of Service: 10/25/2014 CSN: [id number] Suggested Level of Care: 20503 - CRITICAL CARE, 1ST HOUR EACH DAY [...] MRI -dexamethasone 4mg q6--slow taper ordered. 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 ed. (Relevant data is listed at the bottom of this note). CC / Hx / Last 24hr: s/p 1) Suboccipital craniectomy and C1 laminectomy 2) Resection of fo urth ventricular mass; Tium mesh cranioplasty Patient Active Problem List Diagnosis Neoplasm of brain PMH: Bipolar, anxiety, headaches , GERD, asthma Home meds: Ziprasidone, Tramadol, Topiramate, Lorazepam, Hampshire, Lansoprazole, Dilaudid, Celecoxib, g abapentin, duloxetine, bupropion, [...] opioids: continue gabapentin # Bipolar: Restart Wellbutrin, [place], Duloxetine, Ziprasidone, and lorazepam (prn) # Lines: arterial line, CVL (subclavian), matos, PIV Relevant Risks: This patient is currently at risk for the following: cerebral edema, hy drocephalus, intracerebral hemorrhage and seizure; central line associated blood stream infe ction, DVT/Pulmonary embolism, ICU delirium and UTI. I spent 65 minutes actively involved in the care and management of this patient. Sachin Ward MD [facility] DEPARTMENT: [id number] ICU NEURO Place of Service:- Inpatient Date of Service: erEDICAL RECORD NUMBER [id number] CSN: [id number] Suggested Modifier: None Suggested CPT: TO PECAN GROWER RELEVANT DATA: Last Vitals: BP 139/80 | [...] 60 - 99 mg/dL | [facility] - | | | GLUCOSE, [...] [facility] | [address] | [place], [place] | | | LESLIE POINT OF CARE | [address] | [address] | | | TESTS | | | [...] [facility] | [address] | [place], [place] | | | MALINA NELSON OF BEL | [address] | [address] | | | TESTS | | | [...] | + + + + + | [facility] | [address] | [place] [address] | | | SERVICES, CORE | KAYLEN [...] | | | LABORATORY | | | COLOMBIAN | | | SERVICES, | | | [...] the MDRD equation recommended by the | [facility] | | National Kidney Disease Education Program. [...] + + + + | [facility] | [address] [facility] | [place] [address] | | | GABRIELLE MIRELES | KAYLEN [...] + | [facility] | [address] | [place], [place] | | | LESLIE POINT OF CARE | [address] | [address] | | | TESTS | | | [...] CHENG | [address] | [place], [place] | | | MALINA NELSON OF CARE | [address] | [address] | | | TESTS | | | [...] [facility] | [address] | [place], [place] | | | LESLIE POINT OF CARE | [address] | [address] | | | TESTS | | | [...] | + + + + + | [facility] | [address] | [place] [address] | | | SERVICES, CORE | KAYLEN [...] | | | LABORATORY | | | COLOMBIAN | | | SERVICES, | | | [...] equation recommended by the | [facility] | | National Kidney Disease [...] + + + + | [facility] | [address] | [place] [address] | | | SERVICES, CORE | KAYLEN [...] 60 - 99 mg/dL | [facility] - | | | GLUCOSE, [...] CHENG | [address] | [place], [place] | | | MALINA NELSON OF CARE | [address] | [address] | | | TESTS | | | [...] [facility] | [address] | [place], [place] | | | MALINA NELSON OF CARE | [address] | [address] | | | TESTS | | | [...] [facility] | [address] | [place], [place] | | | MALINA NELSON OF CARE | [address] | [address] | | | TESTS | | | [...] 60 - 99 mg/dL | [facility] - | | | GLUCOSE, [...] + + + | [facility] | [address] | [place], [place] | | | MALINA NELSON OF CARE | [address] | [address] | | | TESTS | | | | + + + + + OPERATION RECORD (10/26/2014 9:22 AM PDT) + + | Transcriptions | + + | Bart Graham MD - 2014 10:30 PM PDT Date of Service: 2014 Attending | | Surgeon: Bart Graham MD Building Associate(s): Brady Conroy MD, | | PhD. Preoperative [...] and she was placed in the Bhagat railway head tender and flipped into | | the prone position on chest rolls. Her arms were tucked at her sides and all pressure | | points were carefully padded. We then registered the Stealth frameless stereotactic | | navigation system with [...] curette with Kerrison punches. We used a [place] dissector to | | carefully dissect the [...] were removed. She was removed from the [place] railway head tender | | and flipped into the supine [...] for the paul portions of the case.Brady Conroy, | | , PhDI was scrubbed and present for all critical portions of the case including: | | approach, resection of tumor and dural closureJuGEREMIAS Mckinley/FABIENNELDD: 2014 | | 18:04:22DT: 2014 22:30:30Job #: [id number] | + + CAPILLARY BLOOD GLUCOSE (NO [...] + | [facility] | [address] | [place], [place] | | | MALINA NELSON OF CARE | [facility] | [address] | | | TESTS | | | [...] 60 - 99 mg/dL | [facility] - | | | GLUCOSE, [...] CHENG | [address] | [place], [place] | | | MALINA NELSON OF CARE | [address] | [address] | | | TESTS | | | [...] [facility] | [address] | [place] [address] | | | SERVICES, CORE | PARK [...] (H) | 60 - 99 mg/dL | [facility] | | | PLASMA | | | [...] | | | LABORATORY | | | COLOMBIAN | | | SERVICES, | | | [...] | + + + + + | [facility] | [address] [facility] | [place] [address] | | | CHI, GABRIELLE | KAYLEN [...] [facility] | [address] | [place], [place] | | | HILL, POINT OF CARE | [address] | [address] | | | TESTS | | | [...] [facility] | [address] | [place], [place] | | | MALINA NELSON OF BEL | [facility] | [address] | | | TESTS | | | [...] CHENG | [address] | [place], [place] | | | LESLIE POINT OF CARE | [address] | [address] | | | TESTS | | | [...] [facility] | [address] | [place], [place] | | | HILL, POINT OF CARE | [address] | [address] | | | TESTS | | | [...] | + + + + + | [facility] | [address] | [place] [address] | | | SERVICES, SPECIAL | PARK [...] | + + + + + | [facility] | [address] [facility] | [place] [address] | | | SERVICES, CORE | KAYLEN [...] | | | LABORATORY | | | COLOMBIAN | | | SERVICES, | | | [...] the MDRD equation recommended by the | [facility] | | National Kidney Disease Education Program. [...] | + + + + + | [facility] | [address] | [place] [address] | | | CHI, GABRIELLE | KAYLEN [...] | | | | | | contrast. [id number] | | | | | | reformatted [...] + +---------+ + + | [facility] DEPARTMENT OF | | | | | RADIOLOGY | | | | + +---------+ + + X-RAY PORTABLE CHEST 1 VIEW (2014 6:53 PM PDT) + + + + + + | Component | Value | Ref Range | Performed | Pathologist | | | | | At | Signature | + + + + + + | X-RAY | EXAM: VT CHEST 1 VIEW | | | | [...] [facility] | [address] | [place] [address] | | | SERVICES, CORE | PARK [...] | | | LABORATORY | | | COLOMBIAN | | | SERVICES, | | | [...] + + + + | [facility] | [address] [facility] | [place] [address] | | | GABRIELLE MIRELES | KAYLEN [...] | + + + + + | [facility] | [address] | [place] [address] | | | SERVICES, CORE | KAYLEN [...] [facility] | [address] | [place] [address] | | | SERVICES, CORE | PARK [...] | | | LABORATORY | | | GABRIELLE MIRELES | + + + + + + + + | Performing | Address | City/State/Zipcode | Phone Number | | Organization | | | | + + + + + | [facility] | [address] | [place] [address] | | | GABRIELLE MIRELES | [address] | | | + + + + + LACTATE (ART) POC (2014 1:21 PM PDT) + +---------+ [...] [facility] | [address] | [place], [place] | | | LESLIE POINT OF CARE | [address] | [address] | | | TESTS | | | [...] + | [facility] | [address] | [place], [place] | | | MALINA NELSON OF CARE | [address] | [address] | | | TESTS | | | [...] | | | | | | MALINA NELSNO | | | | | | OF [...] CHENG | [address] | [place], [place] | | | MALINA NELSON OF CARE | [address] | [address] | | | TESTS | | | [...] | [facility] | [address] | [place], [place] | | | MALINA NELOSN OF CARE | [address] | [address] | | | TESTS | | | [...] [facility] | [address] | [place], [place] | | | MALINA NELSON OF BEL | [facility] | [address] | | | TESTS | | | [...] CHENG | [address] | [place], [place] | | | LESLIE POINT OF CARE | [address] | [address] | | | TESTS | | | | + + + + + HEMOGLOBIN-COOX, POC (2014 1:21 PM PDT) + + [...] [facility] | [address] | [place], [place] | | | MALINA NELSON OF CARE | [address] | [address] | | | TESTS | | | [...] CHENG | [address] | [place], [place] | | | LESLIE POINT OF CARE | [address] | [address] | | | TESTS | | | [...] mass | | | | | | [id number] x 12 mm in | | | [...] | | + +---------+ + + | [facility] | | | | | [...] [facility] | [address] | [place] [address] | | | SERVICES, | [address] [...] | + + + + + | [facility] | [address] | [place] [address] | | | SERVICES, | [address] | | | | TRANSFUSION MEDICINE | | | | + + + + + INTRAOPERATIVE NEURO MONITORING (2014) + + + | Narrative | Performed At | + + + | Patient Name: Mendoza Villegas Date of : 1970 Medical | | | Record Number: [id number] Date of Test: 2014 Place of | | | Service: IP Intra Op (25) [id number] INTRAOPERATIVE NEURO | | | MONITORING History: [...] of | | | Neurology Suggested CPT: 10007 - IOM Remote x 3 hr(s) 94890 - | | | Short Latency EP's Upper AND Lower extremities 05129 - Central Motor | | | EP's Upper AND Lower extremities 49777 - EMG Cranial Bilateral - IOM | | | 38795 - Neuromuscular Junction Test Suggested Diagnosis: 237.5 [...] | | | | | | R. Martín, | | | | | | M.D.,Ph.D./Neuropatholog [...] | + + + + + | [facility] | [address] | [place] [address] | | | PATHOLOGY | [address] [...] | | EVERY MORNING, First dose on Calista | | [...] | | | MORNING, First dose on Wed | | [...] | | | | | NEEDED, Starting 10/24/14 at | | | | | | [...] | | | | | NEEDED, Starting [facility] 10/25/14 at | | | | | | | 1344, Until [place] 10/28/14 at 1929, | | | | [...] | | | | | NEEDED, Starting [facility] 10/25/14 | | PM PDT | [...] | | | | | dose on Calista 10/25/14 at 0900, | | AM PDT | | | | | Until Discontinued | | | | | | + +-------+ +-------+---+---+ +-------+ +-------+---+---+ | Given | 10/28/19 | 40 mg | | | | | 15 7:53 | | | | | | AM PDT | | | | +-------+ +-------+---+---+ | Given | 03/27/20 | 40 mg | | | | [...] | | | 2000, Until Wed10/24/14 at 2008 | | PM PDT | | | [...] | | NEEDED, Starting 10/26/14 | | AM PDT | | | [...]
--- OUTSIDE RECORDS SUMMARY | ~2020-03-16 | XMS | Encounter Summary ---
Demographics + + + | Address | [address] | | | [place] [address] | + + + | Home Phone | | + + + | Preferred Language | Unknown | + + + | Marital Status | | + + + | Buddhism Affiliation | LDS | + + + [...] Team Providers + +------+ + | Care Commercial Driver'S License Driver Name | Role | Phone | + +------+ + | Ashwini Ochoa NP | PCP | | + +------+ + Encounter Details +--------+ + + + + | Date | Type | Department | Care Team | Description | +--------+ + + + + | 11/10/ | Telephone | Neurosurgery at | Shar [place], | | | 2014 | | [address] | [address] [facility] | | | | | radha [place] for | [facility] | | | | | Health and Healing, | [place], [place] | | | | | [facility] | [address] | | | | | floor [place], [place] | [phone] | | | | | [address] | | | | | | [phone] | | | +--------+ + + + [...]
--- OUTSIDE RECORDS SUMMARY | ~2020-03-16 | XMS | Encounter Summary ---
Demographics + + + | Address | [address] | | | [place] [address] | + + + | Home Phone | | + + + | Preferred Language | Unknown | + + + | Marital Status | | + + + | Anabaptist Affiliation | LDS | + + + [...] Team Providers + +------+ + | Care Director Of Labor And Delivery Name | Role | Phone | + [...] | | | | [facility] | [place] [address] | | | | | | a (HCC) | [address] | | | | | | Procedures | [address] | | | | | | MRI BRAIN | [place], [place] | | | | | | TUMOR | [address] | | | | | | EVALUATION | Phone: | | | | | | WWO CONTRAST | [phone] | | | | | | | Fax: | | | | | | | [phone] | | +--------+--------+ + + + + [...] | (Primary Dx) | | | | [facility] for | [place], [place] | | | | | Health and Healing, | [address] | | | | | [facility] | [phone] | | | | | floor [place], [place] | | | | | | [address] | | | | | | [phone] | | | +--------+---------+ + + + [...] reports that she is doing well ov [facility]. She denies headaches currently. She does [...] hours. Take 1 tablet by [facility] every 8 hours for 2 days. [...] also contact us to fax referral for [facility] in [facility]. 2) Contact our office or present to [facility] Emergency Department for severe headache [...]
--- OUTSIDE RECORDS SUMMARY | ~2020-03-16 | XMS | Encounter Summary ---
Demographics + + + | Address | [address] | | | [place] [address] | + + + | Home Phone | | + + + | Preferred Language | Unknown | + + + | Marital Status | | + + + | Moravian Affiliation | LDS | + + + | Race | White | + + + | Ethnic Group | Not or | + + + Author + + + | Author | [facility] | + + + | Organization | [facility] | + + + | [...] Team Providers + +------+ + | Care Financial Service Rep Name | Role | Phone | + +------+ + | Marixa Weber MD | PCP | | + +------+ + Encounter Details +--------+--------+ + + + | Date | Type | Department | Care Team | Description | +--------+--------+ + + + | 10/20/ | Intake | Transfer Center | | N/A | | 2019 | | [address] | | | | | | [place], | | | | | | [place] [address] | | | +--------+--------+ + + + Social History + + [...]
--- OUTSIDE RECORDS SUMMARY | ~2020-03-16 | XMS | Encounter Summary ---
Demographics + + + | Address | [address] | | | [place] [address] | + + + | Home Phone | | + + + | Preferred Language | Unknown | + + + | Marital Status | | + + + | Temple Affiliation | 1027 | + + + | Race | Unknown | + + + | Ethnic Group | Unknown | + + + Author + + + | Author | [facility] | | | and [place] | + + + | Organization | [facility] | | | [...] Team Providers + +------+ + | Care Traffic Operator Name | Role | Phone | + +------+ + PCP | Unavailable | + +------+ + Encounter Details +--------+ + + + + | Date | Type | Department | Care Team | Description | +--------+ + + + + | 03/03/ | Hospital [facility] | Handy Anderson P, | | | 1993 | Encounter | [facility] | DO [address] | | | | | GENERIC OP CONV DEPT | [address] [place], [place] | | | | | [address] | [id number] | | | | | [place], [place] | | | | | | [address] | | | | | | [phone] | | | +--------+ + + + [...]
--- OUTSIDE RECORDS SUMMARY | ~2020-03-16 | XMS | Encounter Summary ---
Demographics + + + | Address | [address] | | | [place] [address] | + + + | Home Phone | | + + + | Preferred Language | Unknown | + + + | Marital Status | | + + + | Confucianist Affiliation | 1027 | + + + | Race | Unknown | + + + | Ethnic Group | Unknown | + + + Author + + + | Author | [facility] | | | and [place] | + + + | Organization | [facility] | | [...] Team Providers + +------+ + | Care Sprayer Leather Name | Role | Phone | + [...] Provider Unknown | | | | | [address] | [phone] | | | | | [phone] | | | +--------+ + + + [...] LAB | | | | Health; [address]; | | | | | | [place] [address] | | | | + + + + + + | K | 4.1Comment: Testing | 3.5 - 4.9 | EXTERNAL | | | | performed at [facility] | mmol/L | LAB | | | | Health; [address]; | | | | | | [place] [address] | | | | + + + + + + | Cl | 105Comment: Testing | 99 - 109 mmol/L | EXTERNAL | | | | performed at [facility] | | LAB | | | | Health; [address]; | | | | | | [place] [address] | | | | + + + + + + | CO2 | 31Comment: Testing | 23 - 32 mmol/L | EXTERNAL | | | | performed at [facility] | | LAB | | | | Health; [address]; | | | | | | [place] [address] | | | | + + + + + + | Anion Gap | 9Comment: Testing | 5 - 20 mmol/L | EXTERNAL | | | | performed at [facility] | | LAB | | | | Health; [address]; | | | | | | [place] [address] | | | | + + + + + + | Glucose, | 91Comment: Testing | 65 - 99 mg/dL | EXTERNAL | | | Fasting | performed at [facility] | | LAB | | | | Health; [address]; | | | | | | [place] [address] | | | | + + + + + + | BUN | 14Comment: Testing | 8 - 25 mg/dL | EXTERNAL | | | | performed at [facility] | | LAB | | | | Health; [address]; | | | | | | [place] [address] | | | | + + + + + + | Creatinine | 0.8Comment: Testing | 0.50 - 1.00 | EXTERNAL | | | | performed at [facility] | mg/dL | LAB | | | | Health; [address]; | | | | | | [place] [address] | | | | + + + + + + | BUN/Creatin | 18Comment: Testing | | EXTERNAL | | | ine Ratio | performed at [facility] | | LAB | | | | Health; [address]; | | | | | | [place] [address] | | | | + + + + + + | Calcium | 9.4Comment: Testing | 8.5 - 10.2 | EXTERNAL | | | | performed at [facility] | mg/dL | LAB | | | | Health; [address]; | | | | | | [place] [address] | | | | + + + + + + | Protein, | 6.5Comment: Testing | 6.3 - 8.2 g/dL | EXTERNAL | | | Total | performed at [facility] | | LAB | | | | Health; [address]; | | | | | | [place] [address] | | | | + + + + + + | Albumin | 2.6 (L)Comment: Testing | 3.6 - 5.0 g/dL | EXTERNAL | | | | performed at [facility] | | LAB | | | | Health; [address]; | | | | | | [place] [address] | | | | + + + + + + | Globulin | 3.9Comment: Testing | 1.3 - 4.9 g/dL | EXTERNAL | | | | performed at [facility] | | LAB | | | | Health; [address]; | | | | | | [place] [address] | | | | + + + + + + | A/G Ratio | 0.7 (L)Comment: Testing | 1.0 - 2.4 | EXTERNAL | | | | performed at [facility] | | LAB | | | | Health; [address]; | | | | | | [place] [address] | | | | + + + + + + | Bilirubin | 0.2Comment: Testing | 0.1 - 1.5 mg/dL | EXTERNAL | | | Total | performed at [facility] | | LAB | | | | Health; [address]; | | | | | | [place] [address] | | | | + + + + + + | ALP, | 71Comment: Testing | 35 - 115 U/L | EXTERNAL | | | External | performed at [facility] | | LAB | | | | Health; [address]; | | | | | | [place] [address] | | | | + + + + + + | AST | 22Comment: Testing | 10 - 45 U/L | EXTERNAL | | | | performed at [facility] | | LAB | | | | Health; [address]; | | | | | | [place] [address] | | | | + + + + + + | ALT | 34Comment: Testing | 10 - 65 U/L | EXTERNAL | | | | performed at [facility] | | LAB | | | | Health; [address]; | | | | | | [place] [address] | | | | + + + [...] | | | | | | at [email or web address]; [address] | | | | [address]; [place] | | | | | | [address] | | | | + + + [...]
--- OUTSIDE RECORDS SUMMARY | ~2020-03-16 | XMS | Encounter Summary ---
Demographics + + + | Address | [address] | | | [place] [address] | + + + | Home Phone | | + + + | Preferred Language | Unknown | + + + | Marital Status | | + + + | Methodist Affiliation | LDS | + + + [...] Team Providers + +------+ + | Care Diesel Truck Crane Operator Name | Role | Phone | + +------+ + | Marixa Weber MD | PCP | | + +------+ + Encounter Details +--------+ + + + + | Date | Type | Department | Care Team | Description | +--------+ + + + + | 08/28/ | Document-Sc | UNKNOWN DEPARTMENT | Other, Faculty | | | 2014 | anned | [address] [facility] | [phone] | | | | | [address] | | | | | | [place], [place] | | | | | | [address] | | | +--------+ + + + [...]
--- OUTSIDE RECORDS SUMMARY | ~2020-03-16 | XMS | Encounter Summary ---
Demographics + + + | Address | [address] | | | [place] [address] | + + + | Home Phone [...] Providers + +------+ + | Care Assistant Tennis Coach Name | Role | Phone | + [...] data | | 2015 | IP | [address] [facility] | [address] | completion) | | | | [address] | [place], [place] | | | | | [place], [place] | [address] | | | | | [address] | [phone] | | | | | | | [...]
--- OUTSIDE RECORDS SUMMARY | ~2020-03-16 | XMS | Encounter Summary ---
Demographics + + + | Address | [address] | | | [place] [address] | + + + | Home Phone | | + + + | Preferred Language | Unknown | + + + | Marital Status | | + + + | Shinto Affiliation | LDS | + + + [...] Team Providers + +------+ + | Care Credit Risk Modeler Name | Role | Phone | + [...] Khan | | | | | [facility] | [address] | | | | | Hospital Admitting | [place], [place] | | | | | Desk Located on the | [address] | | | | | 9th floor | [phone] | | | | | [place], [place] | | | | | | [address] | | | +--------+ + + + [...]
--- OUTSIDE RECORDS SUMMARY | ~2020-03-16 | XMS | Encounter Summary ---
Demographics + + + | Address | [address] | | | [place] [address] | + + + | Home Phone | | + + + | Preferred Language | Unknown | + + + | Marital Status | | + + + | Mu-Ism Affiliation | 1027 | + + + [...] Team Providers + +------+ + | Care Welding Manager Name | Role | Phone | [...] [place] | | | | | [address] | [address] | | | | | [phone] | [phone] | | | | | | | [...] EXTERNAL | | | | performed at [facility] | | LAB | | | | Health; [address]; | | | | | | [place] [address] | | | | + + + [...]
--- OUTSIDE RECORDS SUMMARY | ~2020-03-16 | XMS | Encounter Summary ---
Demographics + + + | Address | [address] | | | [place] [address] | + + + | Home Phone [...] + + | Author | [facility] | | | and [place] | + + + | Organization | [facility] | | | [...] Team Providers + +------+ + | Care Shipping Checker Name | Role | Phone | + [...] Provider Unknown | | | | | [address] | [phone] | | | | | [phone] | | | +--------+ + + + [...] EXTERNAL | | | | performed at [facility] | | LAB | | | | Health; [address] [facility]; | | | | | | [place] [address] | | | | + + + [...]
--- OUTSIDE RECORDS SUMMARY | ~2020-03-16 | XMS | Encounter Summary ---
Demographics + + + | Address | [address] | | | [place] [address] | + + + | Home Phone | | + + + | Preferred Language | Unknown | + + + | Marital Status | | + + + | Worship Affiliation | 1027 | + + + | Race | Unknown | + + + | Ethnic Group | Unknown | + + + Author + + + | Author | [facility] | | | and [place] | + + + | Organization | [facility] | | [...] Team Providers + +------+ + | Care Fish Hatchery Man Name | Role | Phone | + +------+ + PCP | Unavailable | + +------+ + Encounter Details +--------+ + + + + | Date | Type | Department | Care Team | Description | +--------+ + + + + | 09/27/ | Hospital | [facility] | ZZ, DEFAULT | | | 1991 | Encounter | [facility] | | | | | | GENERIC OP CONV DEPT | | | | | | [address] | | | | | | [place] | | | | | | [address] | | | | | | [phone] | | | +--------+ + + + [...]
--- OUTSIDE RECORDS SUMMARY | ~2020-03-16 | XMS | Encounter Summary ---
Demographics + + + | Address | [address] | | | [place] [address] | + + + | Home Phone | | + + + | Preferred Language | Unknown | + + + | Marital Status | | + + + | Samaritan Affiliation | 1027 | + + + | Race | Unknown | + + + | Ethnic Group | Unknown | + + + Author + + + | Author | [facility] | | | and [place] | + + + | Organization | [facility] | | | [...] Team Providers + +------+ + | Care Roll Plugger Machine Operator Name | Role | Phone | + +------+ + PCP | Unavailable | + +------+ + Encounter Details +--------+ + + + + | Date | Type | Department | Care Team | Description | +--------+ + + + + | 07/15/ | Hospital | [facility] | Fiordaliza Walls | | | 1994 | Encounter | [facility] | [address] | | | | | GENERIC OP CONV DEPT | [place] [address] | | | | | [address] | [phone] | | | | | [place], [place] | | | | | | [address] | | | | | | [phone] | | | +--------+ + + + [...]
--- OUTSIDE RECORDS SUMMARY | ~2020-03-16 | XMS | Encounter Summary ---
Demographics + + + | Address | [address] | | | [place] [address] | + + + | Home Phone [...] Team Providers + +------+ + | Care Logistics Technician Name | Role | Phone | + +------+ + PCP | Unavailable | + +------+ + Encounter Details +--------+ + + + + | Date | Type | Department | Care Team | Description | +--------+ + + + + | 01/06/ | Hospital | [facility] | Handy Anderson P, | | | 1994 | Encounter | [facility] | DO [address] | | | | | GENERIC OP CONV DEPT | RD [place], [place] | | | | | [address] | [id number] | | | | | [place], [place] | | | | | | [address] | | | | | | [phone] | | | +--------+ + + + [...]
--- OUTSIDE RECORDS SUMMARY | ~2020-03-16 | XMS | Encounter Summary ---
Demographics + + + | Address | [address] | | | [place] [address] | + + + | Home Phone [...] Team Providers + +------+ + | Care Trade Manager Name | Role | Phone | [...] [place] | | | | | [address] | [address] | | | | | [phone] | [phone] | | | | | | | [...] + + + + + + | Non- | 3.31 (L) | 3.70 - 5.10 | EXTERNAL | | | Red Blood | | M/uL | LAB | | | Cells | | | | | | Counted | | | | | + + + + + + | Hemoglobin | 9.0 (L) | 11.3 - 15.5 [...] | EXTERNAL | | | Morphology | TCL, [address] | | LAB | | | | [place] | | | | | | [address] | | | | + + + [...]
--- OUTSIDE RECORDS SUMMARY | ~2020-03-16 | XMS | Encounter Summary ---
Demographics + + + | Address | [address] | | | [place] [address] | + + + | Home Phone | | + + + | Preferred Language | Unknown | + + + | Marital Status | | + + + | Jewish Affiliation | 1027 | + + + | Race | Unknown | + + + | Ethnic Group | Unknown | + + + Author + + + | Author | [facility] | | | and [place] | + + + | Organization | [facility] | [...] Team Providers + +------+ + | Care Bullet Lubricating Machine Operator Name | Role | Phone [...] Provider Unknown | | | | | [address] | [phone] | | | | | [phone] | | | +--------+ + + + [...] + + | COMPREHENSIVE | Routin | 03/26/2014 | | Results for this | | METABOLIC PANEL | e | 6:06 AM | | procedure are in the | | | | PDT | | results section. | + +--------+ + + + documented in this encounter Results Comprehensive Metabolic Panel (03/26/2014 6:06 AM PDT) + + + + + + | Component | Value | Ref Range | Performed | Pathologist | | | | | At | Signature | + + + + + + | Na | 140Comment: Testing | 135 - 143 | EXTERNAL | | | | performed at [facility] | mmol/L | LAB | | | | Health; [address]; | | | | | | [place] [address] | | | | + + + + + + | K | 4.4Comment: Testing | 3.5 - 4.9 | EXTERNAL | | | | performed at [facility] | mmol/L | LAB | | | | Health; [address]; | | | | | | [place] [address] | | | | + + + + + + | Cl | 104Comment: Testing | 99 - 109 mmol/L | EXTERNAL | | | | performed at [facility] | | LAB | | | | Health; [address]; | | | | | | [place] [address] | | | | + + + + + + | CO2 | 30Comment: Testing | 23 - 32 mmol/L | EXTERNAL | | | | performed at [facility] | | LAB | | | | Health; [address]; | | | | | | [place] [address] | | | | + + + + + + | Anion Gap | 10Comment: Testing | 5 - 20 mmol/L | EXTERNAL | | | | performed at [facility] | | LAB | | | | Health; [address]; | | | | | | [place] [address] | | | | + + + + + + | Glucose, | 102 (H)Comment: Testing | 65 - 99 mg/dL | EXTERNAL | | | Fasting | performed at [facility] | | LAB | | | | Health; [address]; | | | | | | [place] [address] | | | | + + + + + + | BUN | 15Comment: Testing | 8 - 25 mg/dL | EXTERNAL | | | | performed at [facility] | | LAB | | | | Health; [address]; | | | | | | [place] [address] | | | | + + + + + + | Creatinine | 0.9Comment: Testing | 0.50 - 1.00 | EXTERNAL | | | | performed at [facility] | mg/dL | LAB | | | | [facility]; | | | | | | [place] [address] | | | | + + + + + + | BUN/Creatin | 17Comment: Testing | | EXTERNAL | | | ine Ratio | performed at [facility] | | LAB | | | | Health; [address]; | | | | | | [place] [address] | | | | + + + + + + | Calcium | 9.5Comment: Testing | 8.5 - 10.2 | EXTERNAL | | | | performed at [facility] | mg/dL | LAB | | | | Health; [address]; | | | | | | [place] [address] | | | | + + + + + + | Protein, | 6.5Comment: Testing | 6.3 - 8.2 g/dL | EXTERNAL | | | Total | performed at [facility] | | LAB | | | | Health; [address]; | | | | | | [place] [address] | | | | + + + + + + | Albumin | 2.6 (L)Comment: Testing | 3.6 - 5.0 g/dL | EXTERNAL | | | | performed at [facility] | | LAB | | | | Health; [address]; | | | | | | [place] [address] | | | | + + + + + + | Globulin | 3.9Comment: Testing | 1.3 - 4.9 g/dL | EXTERNAL | | | | performed at [facility] | | LAB | | | | Health; [address]; | | | | | | [place] [address] | | | | + + + + + + | A/G Ratio | 0.7 (L)Comment: Testing | 1.0 - 2.4 | EXTERNAL | | | | performed at [facility] | | LAB | | | | Health; [address]; | | | | | | [place] [address] | | | | + + + + + + | Bilirubin | 0.2Comment: Testing | 0.1 - 1.5 mg/dL | EXTERNAL | | | Total | performed at [facility] | | LAB | | | | Health; [address]; | | | | | | [place] [address] | | | | + + + + + + | ALP, | 71Comment: Testing | 35 - 115 U/L | EXTERNAL | | | External | performed at [facility] | | LAB | | | | Health; [address]; | | | | | | [place] [address] | | | | + + + + + + | AST | 20Comment: Testing | 10 - 45 U/L | EXTERNAL | | | | performed at [facility] | | LAB | | | | Health; [address]; | | | | | | [place] [address] | | | | + + + + + + | ALT | 34Comment: Testing | 10 - 65 U/L | EXTERNAL | | | | performed at [facility] | | LAB | | | | [facility]; [address]; | | | | | | [place] [address] | | | | + + + [...] | | | | | | at [employer] [employer] [facility]; [address] | | | | | [address]; [place] | | | | | | [address] | | | | + + + [...]
--- OUTSIDE RECORDS SUMMARY | ~2020-03-16 | XMS | Encounter Summary ---
Demographics + + + | Address | [address] | | | [place] [address] | + + + | Home Phone | | + + + | Preferred Language | Unknown | + + + | Marital Status | | + + + | Jewish Affiliation | LDS | + + + | Race | White | + + + | Ethnic Group | Not or | + + + Author + + + | Author | [facility] | + + + | Organization | [facility] | + + + | [...] Team Providers + +------+ + | Care Body Wirer Name | Role | Phone | + [...] | | | | uncertain | [address] | [address] | | | | | behavior of | Avenue | Avenue | | | | | brain and | [place], [place] | [place] | | | | | spinal cord | [address] | [address] | | | | | (HCC) | Phone: | Phone: | | | | | Procedures | [phone] | [phone] | | | | | REQUEST TO | Fax: | Fax: | | | | | SURGERY | [phone] | [phone] | | | | | RECYCLABLE MATERIALS DISTRIBUTOR | | | | | | | NV EXCIS | | | | | | | INFRATENT | | | | | | | BRAIN TUMOR | | | | | | | NV SCAN | | | | | | [...] fossa | | 2015 | Visit | [facility] [address] | [address] | tumor (HCC) (Primary | | | | [facility] | [place], [place] | Dx) | | | | [facility], | [address] | | | | | [facility] | [phone] | | | | | [place], [place] | | | | | | [address] | | | | | | [phone] | | | +--------+---------+ + + + [...] by me and if not recorded in [facility] will be scanned into the stem using [...]
--- OUTSIDE RECORDS SUMMARY | ~2020-03-16 | XMS | Encounter Summary ---
Demographics + + + | Address | [address] | | | [place] [address] | + + + | Home Phone | | + + + | Preferred Language | Unknown | + + + | Marital Status | | + + + | Anabaptist Affiliation | 1027 | + + + | Race | Unknown | + + + | Ethnic Group | Unknown | + + + Author + + + | Author | [facility] | | | and [place] | + + + | Organization | [facility] | | | [...] Team Providers + +------+ + | Care Shelving Supervisor Name | Role | Phone | + +------+ + PCP | Unavailable | + +------+ + Encounter Details +--------+ + + + + | Date | Type | Department | Care Team | Description | +--------+ + + + + | 12/24/ | Hospital | [facility] | John Doyle | | | 2007 | Encounter | MED CTR SLEEP | MD [place] [address] | | | | | CENTER [address] | [facility] | | | | | [place] | [place] [address] | | | | | [address] | [phone] | | | | | [phone] | | | +--------+ + + + [...]
--- OUTSIDE RECORDS SUMMARY | ~2020-03-16 | XMS | Encounter Summary ---
Demographics + + + | Address | [address] | | | [place] [address] | + + + | Home Phone | | + + + | Preferred Language | Unknown | + + + | Marital Status | | + + + | Hinduism Affiliation | 1027 | + + + | Race | Unknown | + + + | Ethnic Group | Unknown | + + + Author + + + | Author | [facility] | | | and [place] | + + + | Organization | [facility] | | | and [...] Team Providers + +------+ + | Care Bargain Table Clerk Name | Role | Phone | [...] Provider Unknown | | | | | [address] | [phone] | | | | | [phone] | | | +--------+ + + + [...] + | SEDIMENTATION RATE, | Routin | 03/25/2014 | | Results for this | | AUTOMATED | e | 6:01 AM | | procedure are in the | | | | PDT | | results section. | + +--------+ + + + documented in this encounter Results Sedimentation rate, automated (03/25/2014 6:01 AM PDT) + + + + + + | Component | Value | Ref Range | Performed | Pathologist | | | | | At | Signature | + + + + + + | Sed Rate | 77 (H)Comment: Testing | 0 - 20 mm/Hr | EXTERNAL | | | | performed at [facility] | | LAB | | | | Health; [address]; | | | | | | [place] [address] | | | | + + + + + + + + | Specimen | + + | | + + + + + | Narrative | Performed At | + + + | Attending/Visit Provider: MINNIE MD, Almaz PACE, , , , ИРИНА, | EXTERNAL LAB | | Ordering Provider: CHINO/MARY ANN LÓPEZ DO, , , , , DANGER, | | + + + + +---------+ + + | Performing | Address | City/State/Zipcode | Phone Number | | Organization | | | | + +---------+ + + | EXTERNAL LAB | | | | + +---------+ + + documented in this encounter Visit Diagnoses Not on filedocumented in this encounter"
--- OUTSIDE RECORDS SUMMARY | ~2020-03-16 | XMS | Encounter Summary ---
Demographics + + + | Address | [address] | | | [place] [address] | + + + | Home Phone [...] Providers + +------+ + | Care Supervisor [employer] Name | Role | Phone | + [...] | | | | | pain | STRAIGHTENING PRESS OPERATOR [address] | [address], | | | | | Diarrhea | [address] | [address] | | | | | Abdominal | [place], | [place], | | | | | pain, | [place] [address] | [place] [address] | | | | | diarrhea | Phone: | Phone: | | | | | Procedures | [phone] | [phone] | | | | | Office Visit | Fax: | Fax: | | | | | | [phone] | [phone] | +--------+--------+ + + + + Encounter [...] | [address] [place] | [address] | (Primary Dx); | | | | [address] [place], [place] | [place], [place] | Elevated cholesterol | | | | [address] | [address] | with elevated | | | | [phone] | | triglycerides; | | | | | | Obesity, morbid, BMI | | | | | | 40.0-49.9 ([facility]); | | | | | | Abdominal pain, | | | | | | epigastric; Bipolar | | | | | | affective disorder, | | | | | | remission status | | | | | | unspecified ([facility]); | | | | | [...] worse. If taking medicines: Don t take vzfk-yjc-ngephjm diarrhea or nausea medicines unless your healthcare [...] with soap and water and using alcohol-based equipment cleaner is the best way to prevent the [...] Keep uncooked meats away from cooked and rhuug-ww-dis foods. Use a food thermometer when cooking. [...] get lower with medicine Date Last Reviewed: 08/04/201519994562-6002 [employer]. [address] [place] [address], [place] [address]. All righ ts reserved. This information is not intended [...] completed case request order, notes to MA. ayla Leiva, STRAIGHTENING PRESS OPERATOR - 05/05/2017 1 1:00 AM PDT PATIENT [...] prior to diarrhea starting. She was taking [place], gabapentin, and 2 other mood stabilizers. She [...] History: Procedure Laterality Date BRAIN TUMOR EXCISION 2014 at [facility] SECTION X2 KNEE SURGERY Left 11/20/2016 LAP BAND 2011 SINUS SURGERY SPINAL FUSION Cervical TONSILLECTOMY AND ADENOIDECTOMY tummy tuch 2014 Family History Problem Relation Age of Onset [...] 0 0 - 4 Final UA Specific [place], External 01/06/2017 1.019 1.005 - 1.03 Final [...] Result 01/18/2017 01-20-17 moderate growth normal enteric dennies. Final Result 01/18/2017 01-21-17 no change in growth. no salmonella, shigella, escherichia col i O157, campylobacter, or yersinia isolated. not specifically tested for other enteric patho gens. Final Result 01/18/2017 01-19-17 no ova and parasites seen. Final Assessment: 1. Diarrhea, unspecified type Case request: Colonoscopy; N/A 2. Elevated cholesterol with elevated triglycerides Case request: Colonoscopy; N/A 3. Obesity, morbid, BMI 40.0-49.9 ([facility]) Case request: Colonoscopy; N/A 4. Abdominal pain, epigastric Case request: Colonoscopy; N/A 5. Bipolar affective disorder, remission status unspecified ([facility]) Case request: Colonoscop y; N/A [...] or other life threatening complications. Patient christal lopez understanding. Risk factors to colo-rectal cancer discussed with [...] + + | Obesity, morbid, BMI 40.0-49.9 ([facility]) | + + | Abdominal pain, epigastric [...]
--- OUTSIDE RECORDS SUMMARY | ~2020-03-16 | XMS | Encounter Summary ---
Demographics + + + | Address | [address] | | | [place] [address] | + + + | Home Phone | | + + + | Preferred Language | Unknown | + + + | Marital Status | | + + + | Islam Affiliation | 1027 | + + + | Race | Unknown | + + + | Ethnic Group | Unknown | + + + Author + + + | Author | [facility] | | | and [place] | + + + | Organization | [facility] | | | [...] Team Providers + +------+ + | Care Alarm Operator Name | Role | Phone | + +------+ + PCP | Unavailable | + +------+ + Encounter Details +--------+ + + + + | Date | Type | Department | Care Team | Description | +--------+ + + + + | 07/19/ | Emergency | [facility] | John Nieves | | | 1994 | | [facility] | [address] | | | | | CENTER [address] [place], [place] | | | | | [address] | [address] | | | | | [place], [place] | | | | | | [address] | | | | | | [phone] | | | +--------+ + + + [...]
--- OUTSIDE RECORDS SUMMARY | ~2020-03-16 | XMS | Encounter Summary ---
Demographics + + + | Address | [address] | | | [place] [address] | + + + | Home Phone [...] Team Providers + +------+ + | Care Banquet Stewardess Name | Role | Phone | + [...] [place] | | | | | | [address] | | | | | | [phone] | | | +--------+ + + + [...]
--- OUTSIDE RECORDS SUMMARY | ~2020-03-16 | XMS | Encounter Summary ---
Demographics + + + | Address | [address] | | | [place] [address] | + + + | Home Phone | | + + + | Preferred Language | Unknown | + + + | Marital Status | | + + + | Hoahaoism Affiliation | 1027 | + + + | Race | Unknown | + + + | Ethnic Group | Unknown | + + + Author + + + | Author | [facility] | | | and [place] | + + + | Organization | [facility] | | [...] Team Providers + +------+ + | Care Air Pollution Specialist Name | Role | Phone | [...] [place] | | | | | [address] | [address] | | | | | [phone] | [phone] | | | | | | | [...] | + +--------+ + + + | URINALYSIS WITH | Routin | 04/27/2014 | | Results for this | | MICROSCOPIC WITH | e | 7:42 PM | | procedure are in the | | CULTURE IF INDICATED | | PDT | | results section. | + +--------+ + + + documented in this encounter Results Urinalysis with Microscopic with Culture if Indicated (04/27/2014 7:42 PM PDT) + + + + + + | Component | Value | Ref Range | Performed | Pathologist | | | | | At | Signature | + + + + + + | Color | YELLOWComment: Testing | | EXTERNAL | | | | performed at [facility] | | LAB | | | | Health; [address]; | | | | | | [place] [address] | | | | + + + + + + | Clarity, | CLEARComment: Testing | | EXTERNAL | | | Urine | performed at [facility] | | LAB | | | | Health; [address]; | | | | | | [place] [address] | | | | + + + + + + | Specific | 1.020Comment: Testing | 1.002 - 1.030 | EXTERNAL | | | [place], | performed at [facility] | | LAB | | | Urine | Health; [address]; | | | | | | [place] [address] | | | | + + + + + + | Leukocyte | NEGATIVEComment: Testing | | EXTERNAL | | | Esterase, | performed at [facility] | | LAB | | | Urine | Health; [address]; | | | | | | [place] [address] | | | | + + + + + + | Nitrite, | NEGATIVEComment: Testing | | EXTERNAL | | | Urine | performed at [facility] | | LAB | | | | Health; [address]; | | | | | | [place] [address] | | | | + + + + + + | Urobilinoge | 0.2Comment: Testing | mg/dL | EXTERNAL | | | n, Urine | performed at [facility] | | LAB | | | | Health; [address]; | | | | | | [place] [address] | | | | + + + + + + | Protein, | NEGATIVEComment: Testing | mg/dL | EXTERNAL | | | Urine | performed at [facility] | | LAB | | | | Health; [address]; | | | | | | [place] [address] | | | | + + + + + + | pH, Urine | 5.5Comment: Testing | 5.0 - 8.0 | EXTERNAL | | | | performed at [facility] | | LAB | | | | Health; [address]; | | | | | | [place] [address] | | | | + + + + + + | Blood, | NEGATIVEComment: Testing | | EXTERNAL | | | Urine | performed at [facility] | | LAB | | | | Health; [address]; | | | | | | [place] [address] | | | | + + + + + + | Ketones | TRACE (A)Comment: | mg/dL | EXTERNAL | | | | Testing performed at | | LAB | | | | [email or web address]; [address] | | | | | | [place]; [place] | | | | | | [address] | | | | + + + + + + | Bilirubin, | NEGATIVEComment: Testing | | EXTERNAL | | | Urine | performed at [email or web address] | | LAB | | | | Health; [address]; | | | | | | [place] [address] | | | | + + + + + + | Glucose, | NEGATIVEComment: Testing | mg/dL | EXTERNAL | | | Urine | performed at [facility] | | LAB | | | | Health; [address]; | | | | | | [place] [address] | | | | + + + + + + | WBC, UA | 0-2Comment: Testing | 0 - 5 /hpf | EXTERNAL | | | | performed at [facility] | | LAB | | | | Health; [address]; | | | | | | [place] [address] | | | | + + + + + + | RBC, UA | 1-5Comment: Testing | 0 - 5 /hpf | EXTERNAL | | | | performed at [facility] | | LAB | | | | Health; [address]; | | | | | | [place] [address] | | | | + + + + + + | Epithelial | 26-50Comment: Testing | /lpf | EXTERNAL | | | Cells | performed at [facility] | | LAB | | | | Health; [address]; | | | | | | [place] [address] | | | | + + + + + + | Bacteria, | NONE SEENComment: | | EXTERNAL | | | UA | Testing performed at | | LAB | | | | [email or web address]; [address] | | | | | | [place]; [place] | | | | | | [address] | | | | + + + [...]
--- OUTSIDE RECORDS SUMMARY | ~2020-03-16 | XMS | Encounter Summary ---
Demographics + + + | Address | [address] | | | [place] [address] | + + + | Home Phone | | + + + | Preferred Language | Unknown | + + + | Marital Status | | + + + | Taoism Affiliation | LDS | + + + [...] | + + +---------+ + | Zina Banrett | ECON | Unknown | | + + +---------+ + Care Team Providers + +------+ + | Care Salesperson Floor Coverings Name | Role | Phone | + +------+ + | Ashwini Ochoa NP | PCP | | + +------+ + Reason for Referral Diagnostic Testing (Urgent) +--------+--------+ + + + + | Status | Reason | Specialty | Diagnoses / | Referred By | Referred To | | | | | Procedures | Contact | Contact | +--------+--------+ + + + + | Closed | | Radiology | Diagnoses | Loki, Siri | Rad Mri H[facility] | | | | | Neoplasm of | [address], [place] [address] | [address] [facility] | | | | | brain (HCC) | [facility] | [address] | | | | | Procedures | [address] | Misha Goliad | | | | | MRI BRAIN | Rd | Research | | | | | W CONTRAST - | [place], [place] | [place] | | | | | FRAMELESS | [address] | [place], [place] | | | | | STEREOTATIC | Phone: | [phone] | | | | | ONLY [place] [facility] | [phone] | Phone: | | | | | BRAIN | Fax: | [phone] | | | | | CONTRAST | [phone] | Fax: | | | | | | | [phone] | +--------+--------+ + + + + Reason for Visit + + + | Reason | Comments | + + + | Radiology Order | | + + + Encounter Details +--------+ + + + + | Date | Type | Department | Care Team | Description | +--------+ + + + + | 10/23/ | Documentati | Neurosurgery at | Bart Graham MD | Radiology Order | | 2015 | on | [facility] [address] | [address] | | | | | 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
--- OUTSIDE RECORDS SUMMARY | ~2020-03-16 | XMS | Encounter Summary ---
Demographics + + + | Address | [address] | | | [place] [address] | + + + | Home Phone [...] + | Author | [facility] | | | and [place] | + + + | Organization | [facility] | | [...] Team Providers + +------+ + | Care Truck Mechanic Name | Role | Phone | + +------+ + PCP | Unavailable | + +------+ + Encounter Details +--------+ + + + + | Date | Type | Department | Care Team | Description | +--------+ + + + + | 06/10/ | Hospital | [facility] | Fiordaliza Walls | | | 1993 | Encounter | [facility] | [address] | | | | | GENERIC OP CONV DEPT | [place] [address] | | | | | [address] | [phone] | | | | | [place], [place] | | | | | | [address] | | | | | | [phone] | | | +--------+ + + + [...]
--- OUTSIDE RECORDS SUMMARY | ~2020-03-16 | XMS | Encounter Summary ---
Demographics + + + | Address | [address] | | | [place] [address] | + + + | Home Phone [...] + + + | Author | [facility] | + + + | Organization | [facility] | + + + | Address [...] Team Providers + +------+ + | Care Liner Worker Name | Role | Phone | [...] Bilateral | Chiquita Harrell, | Lab [facility] [address] | | | | | leg edema | [address] | [address] | | | | | Procedures | [address] | Loop | | | | | VASC LAB | [address] | Mailcode: | | | | | VENOUS | [place], [place] | [address] | | | | | DUPLEX LOWER | [address] | Physician's | | | | | EXTREMITY | Phone: | Pavilion | | | | | BILAT COMP | [phone] | [place], [place] | | | | | | Fax: | [address] | | | | | | [phone] | Phone: | | | | | | | [phone] | | | | | | | Fax: | | | | | | | [phone] | +--------+--------+ + + + + Reason for Visit Diagnostic Testing (Routine) +--------+--------+ + + + + | Status | Reason | Specialty | Diagnoses / | Referred By | Referred To | | | | | Procedures | Contact | Contact | +--------+--------+ + + + + | Closed | | Radiology | Diagnoses | Remling, | Zzrad Vasc | | | | | Bilateral | Chiquita Harrell, | [facility] [address] | | | | | leg edema | [place] [address] | [address] | | | | | Procedures | [address] | Loop | | | | | VASC LAB | [address] | Mailcode: | | | | | VENOUS | [place], [place] | [address] | | | | | DUPLEX LOWER | [address] | Physician's | | | | | EXTREMITY | Phone: | Pavilion | | | | | BILAT COMP | [phone] | [place], [place] | | | | | | Fax: | [address] | | | | | | [phone] | Phone: | | | | | | | [phone] | | | | | | | Fax: | | | | | | | [phone] | +--------+--------+ + + + + Encounter Details +--------+ + + + + | Date | Type | Department | Care Team | Description | +--------+ + + + + | 11/16/ | Hospital | Diagnostic | | | | 2014 | Encounter | Radiology at [facility] | | | | | | [address] | | | | | | Loop Mailcode: | | | | | | [address] Physician's | | | | | | Pavilion [place], | | | | | | [place] [address] | | | | | | [phone] | | | +--------+ + + + [...] | | | | | | | release(/EC) | | | | | | + + + +---------+ + + | LITHIUM CARBONATE | Take 600 mg by mouth | | 0 | 07/31/20 | | | 300 mg oral capsule | once daily at | | | 14 | | | | bedtime. 2 [id number] | | | | | | | [...]
--- OUTSIDE RECORDS SUMMARY | ~2020-03-16 | XMS | Encounter Summary ---
Demographics + + + | Address | [address] | | | [place] [address] | + + + | Home Phone [...] + + | Author | [facility] | | | and [place] | + + + | Organization | [facility] | | | [...] + +------+ + | Care Head Of History Name | Role | Phone | + +------+ + PCP | Unavailable | + +------+ + Encounter Details +--------+ + + + + | Date | Type | Department | Care Team | Description | +--------+ + + + + | 09/22/ | Hospital | [facility] | Handy Anderson P, | | | 1993 | Encounter | [facility] | DO [address] | | | | | GENERIC OP CONV DEPT | [address] [place], [place] | | | | | [address] | [id number] | | | | | [place], [place] | | | | | | [address] | | | | | | [phone] | | | +--------+ + + + [...]
--- OUTSIDE RECORDS SUMMARY | ~2020-03-16 | XMS | Encounter Summary ---
Demographics + + + | Address | [address] | | | [place] [address] | + + + | Home Phone [...] Team Providers + +------+ + | Care Choker Setter Name | Role | Phone | + +------+ + PCP | Unavailable | + +------+ + Encounter Details +--------+ + + + + | Date | Type | Department | Care Team | Description | +--------+ + + + + | 11/11/ | Hospital | [facility] | Handy Anderson P, | | | 1993 | Encounter | [facility] | DO [address] | | | | | GENERIC OP CONV DEPT | [address] [place], [place] | | | | | [address] | [id number] | | | | | [place], [place] | | | | | | [address] | | | | | | [phone] | | | +--------+ + + + [...]
--- OUTSIDE RECORDS SUMMARY | ~2020-03-16 | XMS | Encounter Summary ---
Demographics + + + | Address | [address] | | | [place] [address] | + + + | Home Phone [...] Team Providers + +------+ + | Care Asphalt Tamping Machine Operator Name | Role | Phone [...] MRI Results | | 2017 | | [facility] [address] | [address] | | | | | [facility] | [place], [place] | | | | | Health and Healing, | [address] | | | | | [facility] | [phone] | | | | | floor [place], [place] | | | | | | [address] | | | | | | [phone] | | | +--------+ + + + [...]
--- OUTSIDE RECORDS SUMMARY | ~2020-03-16 | XMS | Encounter Summary ---
Demographics + + + | Address | [address] | | | [place] [address] | + + + | Home Phone | | + + + | Preferred Language | Unknown | + + + | Marital Status | | + + + | Church Affiliation | LDS | + + + [...] Team Providers + +------+ + | Care Tattooer Name | Role | Phone | + [...] 11/30/ | Telephone | Neurosurgery at | Batr Graham MD | Medication Refill | | 2014 | | [facility] [address] | [address] | | | | | [facility] for | [place], [place] | | | | | Health and Healing, | [address] | | | | | [facility] | [phone] | | | | | floor [place], [place] | | | | | | [address] | | | | | | [phone] | | | +--------+ + + + [...]
--- OUTSIDE RECORDS SUMMARY | ~2020-03-16 | XMS | Encounter Summary ---
Demographics + + + | Address | [address] | | | [place] [address] | + + + | Home Phone [...] Team Providers + +------+ + | Care Para Educator Name | Role | Phone | + +------+ + | Ashwini Ochoa NP | PCP | | + +------+ + Encounter Details +--------+ + + + + | Date | Type | Department | Care Team | Description | +--------+ + + + + | 01/29/ | Document-Sc | Health Information | Unknown . | | | 2017 | anned | Services [address] | | | | | | [address] | | | | | | Mailcode: [id number] | | | | | | [facility] | | | | | | [place], [place] | | | | | | [address] | | | | | | [phone] | | | +--------+ + + + [...]
--- OUTSIDE RECORDS SUMMARY | ~2020-03-16 | XMS | Encounter Summary ---
Demographics + + + | Address | [address] | | | [place] [address] | + + + | Home Phone [...] + + | Author | [facility] | + + + | Organization | [facility] | + + + | Address | [...] Team Providers + +------+ + | Care Cathode Ray Tube Salvage Processor Name | Role | Phone | + [...] Board | | 2015 | on | [facility] [address] | ,PhD [address] [facility] | Recommendation | | | | [facility] for | [address] | | | | | [facility], | [place], [place] | | | | | [facility] | [address] | | | | | [place], [place] | [phone] | | | | | [address] | | | | | | [phone] | | | +--------+ + + + [...]
--- OUTSIDE RECORDS SUMMARY | ~2020-03-16 | XMS | Encounter Summary ---
Demographics + + + | Address | [address] | | | [place] [address] | + + + | Home Phone [...] Team Providers + +------+ + | Care Rural Health Consultant Name | Role | Phone | [...] | | | brain (HCC) | [address] | | | | | | Procedures | Avenue | | | | | | MRI BRAIN | [place], [place] | | | | | | TUMOR | [address] | | | | | | EVALUATION | Phone: | | | | | | WWO CONTRAST | [phone] | | | | | | | Fax: | | | | | | | [phone] | | +--------+--------+ + + + + [...] Radiology Order | | 2016 | | [facility] [address] | [address] | | | | | e [place] for | [place], [place] | | | | | Health and Healing, | [address] | | | | | [facility] | [phone] | | | | | floor [place], [place] | | | | | | [address] | | | | | | [phone] | | | +--------+ + + + [...]
--- OUTSIDE RECORDS SUMMARY | ~2020-03-16 | XMS | Encounter Summary ---
Demographics + + + | Address | [address] | | | [place] [address] | + + + | Home Phone [...] Team Providers + +------+ + | Care Spa Associate Name | Role | Phone | [...] | | | | | | | ND | | | | | | | COLONOSCOPY | | | | | | | FLX DX | | | | | | | W/COLLJ SPEC | | | | | | | WHEN PFRMD | | | | | | | ND | | | | | | | COLONOSCOPY | | | | | | | W/BIOPSY | | | | | | | SINGLE/MULTI | | | | | | | PLE ND | | | | | | | COLSC FLX | | | | | | | W/RMVL OF | | | | | | | TUMOR POLYP | | | | | | | LESION SNARE | | | | | | | TQ ND | | | | | | | [...] + + | 06/01/ | [facility]est[facility] | [facility] | Milind Bejarano | | | 2016 | Event | MED CTR MP INTRA OP | MD Valentina [address] | | | | | [address] | [address] [place] | | | | | [place] | [address] | | | | | [address] | [phone] | | | | | [phone] | | | +--------+ + + + [...] explained and consent obtained. Patient transported to [facility], | | | 5 | | Monitors [...] 1218 by | | eral | Forearm; pmwa-gqr-jqrhms catheter | Falguni Simental RN | Mariel [...] + + documented as of this encounter [place] Notes Anesthesia Postprocedure Evaluation - Milind Bejarano MD - 06/01/2017 11:53 AM PDTForm atting of this note might be different from the original. ANESTHESIA POSTANESTHESIA EVALUATION Mendoza Villegas 46 y.o. female 1970 [id number] Procedure(s) COLONOSCOPY (N/A Rectum) Cooperates? Yes Mental Status Performs simple tasks. Respiratory Satisfactory - Airway patent (self maintained). Cardiovascular Satisfactory - Blood pressure and heart rate acceptable Temperature Satisfactory Pain Satisfactory N/V Control Satisfactory Hydration Satisfactory - No signs of dehydration Complications None apparent Vitals: 06/01/17 0947 06/01/17 1145 06/01/17 1147 BP: (!) 159/103 128/75 128/75 Pulse: 80 87 88 Temp: 36.4 C (97.5 F) 36.4 C (97.5 F) Resp: 17 16 16 SpO2: 97% 94% 94% Electronically signed by Milind Bejarano MD 06/01/2017 11:[address] [facility] nesthesia Preprocedure Evaluation - Milind Bejarano MD - 2016 8:28 AM PDT ANESTHESIA PREANESTHESIA EVALUATION Mendoza Vil[place]as 46 y.o. female 1970 [id number] Procedure(s): COLONOSCOPY (N/A Rectum) Review of Systems / Med History Cardiovascular (+) hypertension Pulmonary (+) asthma(+) sleep apnea: known Neurology (+) headaches, fibromyalgia Psychology (+) bipolar disorder Gastrointestinal/Hepatic (+) hyperlipidemia Endocrine (+) obesity: morbid BMI 40+ Physical Exam Airway MP III, TM >3 FB, Mouth opening >2 FB. Neck: full ROM, extends >30 degrees. Jaw protru lizz limited. Dental Grossly normal except where noted below.; CV cardiovascular normal Rhythm regular. Rate Normal. (-) murmur. Pulm Clear to auscultation bilaterally. Neuro Grossly normal. Anesthesia Plan ASA 3 Type: TIVA. Induction: Intravenous. Potential problems: None anticipated, none anticipated. Monitors: Standard ASA monitors. Consent statement:Anesthetic plan, alternatives, risks and benefits discussed with patient. Risks discussed included (but were not limited to): sore throat, pain, disability, perioper ative CV events, infection, muscle aches, voice injury, drug reaction, heart problems, nause a, respiratory events, . Consenting person understands and agrees to proceed. Patient Active Problem List: H/O Benign Brain Tumor - exc 2015 Diarrhea, unspecified type Elevated cholesterol with elevated triglycerides Obesity, morbid, BMI 40.0-49.9 Abdominal pain, epigastric Bipolar disorder LAP-BAND surgery status Incontinence of feces with fecal urgency Family history of autoimmune disorder PCOS (polycystic ovarian syndrome) Fibromyalgia Obstructive sleep apnea Restless leg syndrome H/O Fusion of Cervical spine Memory loss, short term . Electronically Signed by: Milind Bejarano MD ESi date/time: 06/01/2017 8:28 documented in thi s encounter Plan of Treatment Not on filedocumented [...]
--- OUTSIDE RECORDS SUMMARY | ~2020-03-16 | XMS | Encounter Summary ---
Demographics + + + | Address | [address] | | | [place] [address] | + + + | Home Phone | | + + + | Preferred Language | Unknown | + + + | Marital Status | | + + + | Rastafari Affiliation | LDS | + + + [...] Team Providers + +------+ + | Care Packaging Engineer Name | Role | Phone | [...] | | | | [facility] 4th Floor Day | | | | | | Stay [address] | | | | | | [address] | | | | | | Mailcode: [id number] | | | | | | [facility] | | | | | | [address] [place], [place] | | | | | | [address] | | | | | | [phone] | | | +--------+ + + + [...] [place] | Wendy Iniguez RN | Vianney Mroin RN | | Urinar | by Gigi [...] mg by mouth once daily in the [facility]. TRAMADOL 50 MG TABLET Take 50 [...] by mouth once daily at bedtime. 2 gcfb=323 mg CHILDREN'S MULTI-VIT GUMMIES ORAL Take by [...] perfume, lotions or powder. Remove any nail bengali from at least one fingernail. Do not [...] your procedure. Surgery Check in Locations Admitting [facility] Surgery Check in Time: Someone from your surgeon's office or [facility] will provide you with information regarding your [...] it is after office hours, call the [facility] arc air operator at [phone] and ask them to page your doc tor. documented in this encounter Plan of Treatment Not on filedocumented as of this encounter Visit Diagnoses Not on filedocumented in this encounter"
--- OUTSIDE RECORDS SUMMARY | ~2020-03-16 | XMS | Encounter Summary ---
Demographics + + + | Address | [address] | | | [place] [address] | + + + | Home Phone [...] Team Providers + +------+ + | Care Overseer Kosher Kitchen Name | Role | Phone | + [...] Provider Unknown | | | | | [address] | [phone] | | | | | [phone] | | | +--------+ + + + [...] | EXTERNAL LAB: [facility] | Routin | 03/26/2014 | | Results for this | | | e | 6:06 AM | | procedure are in the | | | | PDT | | results section. | + +--------+ + + + documented in this encounter Results External Lab: [facility] (03/26/2014 6:06 AM PDT) + + + [...] | | | | | | [place] [address] | | | | + + + + + + | Non- | 2.99 (L)Comment: Testing | 3.70 - 5.10 | EXTERNAL | | | Red Blood | performed at [facility] | M/uL | LAB | | | Cells | Health; [address]; | | | | | Counted | [place] [address] | | | | + + + + + + | Hemoglobin | 8.6 (L)Comment: Testing | 11.3 - 15.5 | EXTERNAL | | | | performed at [facility] | g/dL | LAB | | | | Health; [address]; | | | | | | [place] [address] | | | | + + + + + + | Hematocrit, | 27.6 (L)Comment: Testing | 34.0 - 46.0 % | EXTERNAL | | | POC | performed at [facility] | | LAB | | | | Health; [address]; | | | | | | [place] [address] | | | | + + + + + + | MCV | 92.4Comment: Testing | 80.0 - 100.0 fl | EXTERNAL | | | | performed at [facility] | | LAB | | | | Health; [address]; | | | | | | [place] [address] | | | | + + + + + + | MCH | 28.9Comment: Testing | 27.0 - 34.0 pg | EXTERNAL | | | | performed at [facility] | | LAB | | | | Health; [address]; | | | | | | [place] [address] | | | | + + + + + + | MCHC | 31.3 (L)Comment: Testing | 32.0 - 35.5 | EXTERNAL | | | | performed at [facility] | g/dL | LAB | | | | Health; [address]; | | | | | | [place] [address] | | | | + + + + + + | RDW-CV | 72.2 (H)Comment: Testing | 37 - 53 fl | EXTERNAL | | | | performed at [facility] | | LAB | | | | Health; [address]; | | | | | | [place] [address] | | | | + + + + + + | Platelet | 604 (H)Comment: Testing | 150 - 400 K/uL | EXTERNAL | | | Count | performed at [facility] | | LAB | | | Plasma | Health; [address]; | | | | | | [place] [address] | | | | + + + + + + | MPV | 6.6Comment: Testing | fl | EXTERNAL | | | | performed at [facility] | | LAB | | | | Health; [address]; | | | | | | [place] [address] | | | | + + + + + + | Differentia | MANUALComment: Testing | | EXTERNAL | | | l Type | performed at [facility] | | LAB | | | | Health; [address]; | | | | | | [place] [address] | | | | + + + + + + | Segmented | 54Comment: Testing | % | EXTERNAL | | | Neutrophils | performed at [facility] | | LAB | | | Manual | Health; [address]; | | | | | | [place] [address] | | | | + + + + + + | % | 6Comment: Testing | % | EXTERNAL | | | Metamyelocy | performed at [facility] | | LAB | | | curly | Health; [address]; | | | | | | [place] [address] | | | | + + + + + + | Lymphocytes | 24Comment: Testing | % | EXTERNAL | | | Manual | performed at [facility] | | LAB | | | | Health; [address]; | | | | | | [place] [address] | | | | + + + + + + | Monocytes | 1Comment: Testing | % | EXTERNAL | | | Manual | performed at [facility] | | LAB | | | | Health; [address]; | | | | | | [place] [address] | | | | + + + + + + | Eosinophils | 15Comment: Testing | % | EXTERNAL | | | Manual | performed at [facility] | | LAB | | | | Health; [address]; | | | | | | [place] [address] | | | | + + + + + + | Absolute | 6.4Comment: Testing | 1.9 - 7.4 K/uL | EXTERNAL | | | Neutrophils | performed at [facility] | | LAB | | | | Health; [address]; | | | | | | [place] [address] | | | | + + + + + + | Absolute | 0.7 (H)Comment: Testing | K/uL | EXTERNAL | | | Metamyelocy | performed at [facility] | | LAB | | | curly | Health; [address]; | | | | | | [place] [address] | | | | + + + + + + | Absolute | 2.8Comment: Testing | 1.0 - 3.9 K/uL | EXTERNAL | | | Lymphocytes | performed at [facility] | | LAB | | | | Health; [address]; | | | | | | [place] [address] | | | | + + + + + + | Absolute | 0.1Comment: Testing | 0 - 0.8 K/uL | EXTERNAL | | | Monocytes | performed at [facility] | | LAB | | | | Health; [address]; | | | | | | [place] [address] | | | | + + + + + + | Absolute | 1.8 (H)Comment: Testing | 0 - 0.5 K/uL | EXTERNAL | | | Eosinophils | performed at [facility] | | LAB | | | | [facility]; [address]; | | | | | | [place] [address] | | | | + + + [...] | EXTERNAL | | | Morphology | [facility]; [address] | | LAB | | | | [place]; [place] | | | | | | [address] | | | | + + + [...]
--- OUTSIDE RECORDS SUMMARY | ~2020-03-16 | XMS | Encounter Summary ---
Demographics + + + | Address | [address] | | | [place] [address] | + + + | Home Phone | | + + + | Preferred Language | Unknown | + + + | Marital Status | | + + + | Cheondoism Affiliation | 1027 | + + + | Race | Unknown | + + + | Ethnic Group | Unknown | + + + Author + + + | Author | [facility] | | | and [place] | + + + | Organization | [facility] | | | and [...] Team Providers + +------+ + | Care Tobacco Cloth Reclaimer Name | Role | Phone | + +------+ + PCP | Unavailable | + +------+ + Encounter Details +--------+ + + + + | Date | Type | Department | Care Team | Description | +--------+ + + + + | 10/12/ | Hospital [facility] | Handy Anderson P, | | | 1994 | Encounter | [facility] | DO [address] | | | | | GENERIC OP CONV DEPT | RD [place], [place] | | | | | [address] | [id number] | | | | | [place], [place] | | | | | | [address] | | | | | | [phone] | | | +--------+ + + + [...]
--- OUTSIDE RECORDS SUMMARY | ~2020-03-16 | XMS | Encounter Summary ---
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 | | | | [phone] | | FS, ??? 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 We are located at the [facility], [address] [place] [address]. Address: [address] [place] [address]. Please call [phone] for questions o r concerns. 2. Follow up with your PCP to review your hospital course and medication changes. Please call to schedule this appointment. Future Appointments Date & Time Provider Department Dept Phone Center 11/09/2014 9:30 AM Bart Graham Neurosurgery at [facility] [phone] Neurosurgery Discharging Physician: JAIME HOWARD MD Attending [...] 14 | | | | bedtime. 2 vuox=227 | | | | | | | [...] issues Jaime Howard MD Neurosurgery Resident Pager #[phone] MEDICATIONS Current Facility-Administered Medications Medication acetaminophen (TYLENOL) [...] 7NSICU ATTENDING NEUROINTENSIVIST PROGRESS NOTE Team Pager: [phone] Attendin -------- EVENING NOTE -------- Date:10/25/2014 Critical [...] s/s of infection # Bipolar: Restart Wellbutrin, Molena, Duloxetine, Ziprasidone, and lorazepam (prn) # Lines: [...] Sachin Ward MD [facility] DE[facility]: [id number] ICU NEURO Place of Service:- Inpatient Date of Service: 10/25/2014 CSN: [id number] Suggested Modifier: None Suggested CPT: TO N[place]KIN MACHINE OPERATOR RELEVANT DATA: Last Vitals: BP 112/66 | [...] treatment decision maker. [facility] DEPARTMENT: [id number] CRITICAL CARE Place of Service: Inpatient Date of Service: 10/25/2014 CSN: [id number] Suggested Level of Care: 51333 - CRITICAL CARE, 1ST HOUR EACH DAY [...] MRI -dexamethasone 4mg q6--slow taper ordered. -medication AWS SOFTWARE DEVELOPMENT ENGINEER: Geodon 160mg qHS, tramadol 50mg q6hr prn [...] for [place] - Diet: Regular diet - [facility] bowel protocol - MIVF: Normal saline [...] IJ CVC line, PIVs on hands bilaterally, mtaos Feeding: Regular diet Analgesia: APAP, oxycodone, dilaudid [...] TORITO GONG, VALENTINA [facility] DEPARTMENT: [id number] ICU NEURO Place of Service:- Inpatient Date of Service: 10/25/2014 CSN: [id number] Suggested Modifier: None Suggested CPT: TO NAPKIN MACHINE OPERATOR Kareen Martinez MD - 2014 6:49 PM [...] - 2014 6:19 PM PDT 7NSICU ATTENDING NATIONAL SALES TRAINER DAILY PROGRESS NOTE Team Pager: [phone] Attendin Date:2014 Critical Care Attending Physician: SACHIN [...] asthma Home meds: Ziprasidone, Tramadol, Topiramate, Lorazepam, Molena, Lansoprazole, Dilaudid, Celecoxib, g abapentin, duloxetine, bupropion, [...] opioids: continue gabapentin # Bipolar: Restart Wellbutrin, Molena, Duloxetine, Ziprasidone, and lorazepam (prn) # Lines: [...] Sachin Ward MD [facility] DEPARTMENT: [id number] ICU NEURO Place of Service:- Inpatient Date of Service: erEDICAL RECORD NUMBER [id number] CSN: [id number] Suggested Modifier: None Suggested CPT: TO NAPKIN MACHINE OPERATOR RELEVANT DATA: Last Vitals: BP 139/80 | [...] CHENG | [address] | [place], [place] | | | MALINA NELSON OF CARE | [address] | [address] | | | TESTS | | | [...] SALLYAM | [address] | [place], [place] | | | LESLIE POINT OF CARE | [address] | [address] | | | TESTS | | | [...] | + + + + + | [facility] | [address] | [place] [address] | | | SERVICES, CORE | KAYLEN [...] | | | LABORATORY | | | JAPANESE | | | SERVICES, | | | [...] the MDRD equation recommended by the | [facility] | | National Kidney Disease [...] | + + + + + | [facility] | [address] | [place] [address] | | | GABRIELLE MIRELES | KAYLEN [...] (H) | 60 - 99 mg/dL | [facility] - | | | GLUCOSE, [...] PROSPER | [address] | [place], [place] | | | LESLIE POINT OF CARE | [address] | [address] | | | TESTS | | | [...] PROSPER | [address] | [place], [place] | | | MALINA NELSON OF BEL | [facility] | [address] | | | TESTS | | | [...] PROSPER | [address] | [place], [place] | | | LESLIE POINT OF CARE | [facility] | [address] | | | TESTS | | | [...] | + + + + + | [facility] | [address] | [place] [address] | | | SERVICES, CORE | KAYLEN [...] | | | LABORATORY | | | JAPANESE | | | SERVICES, | | | [...] | + + + + + | [facility] | [address] | [place] [address] | | | SERVICES, CORE | KAYLEN [...] (H) | 60 - 99 mg/dL | [facility] - | | | GLUCOSE, | | [...] CHENG | [address] | [place], [place] | | | MALINA NELSON OF BEL | [address] | [address] | | | TESTS | | | [...] MARQUAM | [address] | [place], [place] | | | LESLIE POINT OF CARE | [address] | [address] | | | TESTS | | | [...] MARQUAM | [address] | [place], [place] | | | LESLIE POINT OF CARE | [address] | [address] | | | TESTS | | | [...] CHENG | [address] | [place], [place] | | | MALINA NELSON OF BEL | [address] | [address] | | | TESTS | | | | + + + + + OPERATION RECORD (10/26/2014 9:22 AM PDT) + + | Transcriptions | + + | Bart Graham MD - 2014 10:30 PM PDT Date of Service: 2014 Attending | | Surgeon: Bart Graham MD Banquet Bartender(s): Brady Conroy MD, | | PhD. Preoperative [...] she was placed in the Bhagat head neck surgeon and flipped into | | the prone position on chest rolls. Her arms were tucked at her sides and all pressure | | points were carefully padded. We then registered the [employer] frameless stereotactic | | navigation system with [...] curette with Kerrison punches. We used a Slidell dissector to | | carefully dissect the [...] the subarachnoid space. We then used a Laporte | | elevator and opened the dura [...] were removed. She was removed from the Lincoln head neck surgeon | | and flipped into the supine [...] approach, resection of tumor and dural closureJuGEREMIAS Mckinley/DANED: 2014 | | 18:04:22DT: 2014 22:30:30Job #: [id number] | + + CAPILLARY BLOOD GLUCOSE (NO [...] SALLYAM | [address] | [place], [place] | | | MALINA NELSON OF CARE | [address] | [address] | | | TESTS | | | [...] CHENG | [address] | [place], [place] | | | MALINA NELSON OF BEL | [address] | [address] | | | TESTS | | | [...] [facility] | [address] | [place] [address] | | | SERVICES, CORE | KAYLEN [...] | | | LABORATORY | | | JAPANESE | | | SERVICES, | | | [...] Interpretive Information: <60 mL/min/1.73 sq m | [facility] | | Chronic Kidney Disease <15 [...] | + + + + + | [facility] [employer] | [address] | [place] [address] | | | GABRIELLE MIRELES | KAYLEN [...] - PROSPER | [address] | [place], [place] | | | MALINA NELSON OF CARE | [facility] | [address] | | | TESTS | | | [...] (H) | 60 - 99 mg/dL | [facility] - | | | GLUCOSE, [...] CHENG | [address] | [place], [place] | | | MALINA NELSON OF [facility] | [facility] | [address] | | | TESTS | | | [...] PROSPER | [address] | [place], [place] | | | MALINA NELSON OF BEL | [address] | [address] | | | TESTS | | | [...] CHENG | [address] | [place], [place] | | | LESLIE POINT OF [facility] | [address] | [address] | | | TESTS | | | [...] | | | | | rupinder / DINORAH | | | | | [...] [facility] | [address] | [place] [address] | | | SERVICES, SPECIAL | PARK [...] | + + + + + | [facility] | [address] | [place] [address] | | | SERVICES, CORE | PARK [...] | | | LABORATORY | | | JAPANESE | | | SERVICES, | | | [...] | + + + + + | [facility] | [address] | [place] [address] | | | SERVICES, GABRIELLE | KAYLEN [...] | | | | | | contrast. [id number] | | | | | | reformatted [...] | | | | | rupinder / DINORAH | | | | | [...] + + + | X-RAY | EXAM: DC CHEST 1 VIEW | | | | [...] | | | | | rupinder / BRANDY | | | | | [...] [facility] | [address] | [place] [address] | | | SERVICES, CORE | PARK [...] | | | LABORATORY | | | JAPANESE | | | SERVICES, | | | [...] the MDRD equation recommended by the | [facility] | | National Kidney Disease [...] | + + + + + | [facility] | [address] | [place] [address] | | | CHI, GABRIELLE | KAYLEN [...] | + + + + + | [facility] | [address] | [place] [address] | | | SERVICES, CORE | PARK [...] [facility] | [address] | [place] [address] | | | SERVICES, GABRIELLE | [address] | | | + [...] | + + + + + | [facility] | [address] | [place] [address] | | | GABRIELLE MIRELES | KAYLEN [...] PROSPER | [address] | [place], [place] | | | MALINA NELSON OF CARE | [facility] | [address] | | | TESTS | | | [...] | | | | | mmol/L | SALLYAM | | | | | [...] PROSPER | [address] | [place], [place] | | | MALINA NELSON OF BEL | [facility] | [address] | | | TESTS | | | [...] CHENG | [address] | [place], [place] | | | LESLIE POINT OF CARE | [address] | [address] | | | TESTS | | | [...] MARQUAM | [address] | [place], [place] | | | MALINA NELSON OF CARE | [facility] | [address] | | | TESTS | | | | + + + + + CHLORIDE, POC (2014 1:21 PM PDT) + +---------+ + + + | Component | Value | Ref Range | Performed | Pathologist | | | | | At | Signature | + +---------+ + + + | CHLORIDE, | 113 (H) | 97 - 108 mmol/L | [facility] - | | | POC | | | PROSPER | | | | | [...] - MARQUAM | [address] | [place], [place] | | | MALINA NELSON OF CARE | [facility] | [address] | | | TESTS | | | [...] CHENG | [address] | [place], [place] | | | LESLIE POINT OF CARE | [address] | [address] | | | TESTS | | | [...] - MARQUAM | [address] | [place], [place] | | | MALINA NELSON OF CARE | [facility] | [address] | | | TESTS | | | [...] CHENG | [address] | [place], [place] | | | LESLIE POINT OF CARE | [address] | [address] | | | TESTS | | | [...] mass | | | | | | [id number] x 12 mm in | | | [...] | | + +---------+ + + | [facility] DEPARTMENT OF | | | [...] [facility] | [address] | [place] [address] | | | SERVICES, | [address] [...] | + + + + + | [facility] | [address] | [place] [address] | | | SERVICES, | [address] | | | | TRANSFUSION MEDICINE | | | | + + + + + INTRAOPERATIVE NEURO MONITORING (2014) + + + | Narrative | Performed At | + + + | Patient Name: Mendoza Villegas Date of : 1970 Medical | | | Record Number: [id number] Date of Test: 2014 Place of | | | Service: IP Intra Op (57) [id number] INTRAOPERATIVE NEURO | | | MONITORING History: [...] of | | | Neurology Suggested CPT: 16949 - IOM Remote x 3 hr(s) 18914 - | | | Short Latency EP's Upper AND Lower extremities 68335 - Central Motor | | | EP's Upper AND Lower extremities 08256 - EMG Cranial Bilateral - IOM | | | 20120 - Neuromuscular Junction Test Suggested Diagnosis: 237.5 [...] Resendiz, | | | | | | Afua, [...] | | | | | | Vijaya R Grafe | | | | | | M.D., [...] + + | [facility] | [address] | [place] [address] | | | PATHOLOGY | [address] | | | + [...]
--- OUTSIDE RECORDS SUMMARY | ~2020-03-16 | XMS | Encounter Summary ---
Demographics + + + | Address | [address] | | | [place] [address] | + + + | Home Phone [...] Team Providers + +------+ + | Care Post Tronic Machine Operator Name | Role | Phone [...] Provider Unknown | | | | | [address] | [phone] | | | | | [phone] | | | +--------+ + + + [...] | EXTERNAL LAB: [facility] | Routin | 03/25/2014 | | Results for this | | | e | 6:01 AM | | procedure are in the | | | | PDT | | results section. | + +--------+ + + + documented in this encounter Results External Lab: [facility] (03/25/2014 6:01 AM PDT) + + + [...] | | | | | | [place] [address] | | | | + + + + + + | Non- | 2.83 (L)Comment: Testing | 3.70 - 5.10 | EXTERNAL | | | Red Blood | performed at [facility] | M/uL | LAB | | | Cells | Health; [address]; | | | | | Counted | [place] [address] | | | | + + + + + + | Hemoglobin | 8.4 (L)Comment: Testing | 11.3 - 15.5 | EXTERNAL | | | | performed at [facility] | g/dL | LAB | | | | Health; [address]; | | | | | | [place] [address] | | | | + + + + + + | Hematocrit, | 26.1 (L)Comment: Testing | 34.0 - 46.0 % | EXTERNAL | | | POC | performed at [facility] | | LAB | | | | Health; [address]; | | | | | | [place] [address] | | | | + + + + + + | MCV | 92.2Comment: Testing | 80.0 - 100.0 fl | EXTERNAL | | | | performed at [facility] | | LAB | | | | Health; [address]; | | | | | | [place] [address] | | | | + + + + + + | MCH | 29.8Comment: Testing | 27.0 - 34.0 pg | EXTERNAL | | | | performed at [facility] | | LAB | | | | Health; [address]; | | | | | | [place] [address] | | | | + + + + + + | MCHC | 32.3Comment: Testing | 32.0 - 35.5 | EXTERNAL | | | | performed at [facility] | g/dL | LAB | | | | Health; [address]; | | | | | | [place] [address] | | | | + + + + + + | RDW-CV | 73.1 (H)Comment: Testing | 37 - 53 fl | EXTERNAL | | | | performed at [facility] | | LAB | | | | Health; [address]; | | | | | | [place] [address] | | | | + + + + + + | Platelet | 606 (H)Comment: Testing | 150 - 400 K/uL | EXTERNAL | | | Count | performed at [facility] | | LAB | | | Plasma | Health; [address]; | | | | | | [place] [address] | | | | + + + + + + | MPV | 6.8Comment: Testing | fl | EXTERNAL | | | | performed at [facility] | | LAB | | | | Health; [address]; | | | | | | [place] [address] | | | | + + + + + + | Differentia | MANUALComment: Testing | | EXTERNAL | | | l Type | performed at [facility] | | LAB | | | | Health; [address]; | | | | | | [place] [address] | | | | + + + + + + | Segmented | 60Comment: Testing | % | EXTERNAL | | | Neutrophils | performed at [facility] | | LAB | | | Manual | Health; [address]; | | | | | | [place] [address] | | | | + + + + + + | Lymphocytes | 20Comment: Testing | % | EXTERNAL | | | Manual | performed at [facility] | | LAB | | | | Health; [address]; | | | | | | [place] [address] | | | | + + + + + + | Monocytes | 9Comment: Testing | % | EXTERNAL | | | Manual | performed at [facility] | | LAB | | | | Health; [address]; | | | | | | [place] [address] | | | | + + + + + + | Eosinophils | 11Comment: Testing | % | EXTERNAL | | | Manual | performed at [facility] | | LAB | | | | Health; [address]; | | | | | | [place] [address] | | | | + + + + + + | Absolute | 8.5 (H)Comment: Testing | 1.9 - 7.4 K/uL | EXTERNAL | | | Neutrophils | performed at [facility] | | LAB | | | | Health; [address]; | | | | | | [place] [address] | | | | + + + + + + | Absolute | 2.8Comment: Testing | 1.0 - 3.9 K/uL | EXTERNAL | | | Lymphocytes | performed at [facility] | | LAB | | | | Health; [address]; | | | | | | [place] [address] | | | | + + + + + + | Absolute | 1.3 (H)Comment: Testing | 0 - 0.8 K/uL | EXTERNAL | | | Monocytes | performed at [facility] | | LAB | | | | Health; [address]; | | | | | | [place] [address] | | | | + + + + + + | Absolute | 1.6 (H)Comment: Testing | 0 - 0.5 K/uL | EXTERNAL | | | Eosinophils | performed at [facility] | | LAB | | | | Health; [address]; | | | | | | [place] [address] | | | | + + + [...] | EXTERNAL | | | Morphology | [facility]; [address] | | LAB | | | | [address]; [place] | | | | | | [address] | | | | + + + [...]
--- OUTSIDE RECORDS SUMMARY | ~2020-03-16 | XMS | Encounter Summary ---
Demographics + + + | Address | [address] | | | [place] [address] | + + + | Home Phone [...] Team Providers + +------+ + | Care Track Repair Laborer Name | Role | Phone | + [...] + + | 06/01/ | Hospital | [facility] | Alex Burnett | Abdominal pain, | | 2016 | Encounter | [facility] CTR [facility] INTRA OP | MD Kai [address] | epigastric; | | | | [address] | [address] [place] | Diarrhea, | | | | [place], [place] | [place] [address] | unspecified type | | | | [address] | [phone] | | | | | [phone] | | | +--------+ + + + [...] | | 0 | | | | YQJH-Isovbvqx-Absnot | as needed (pain). | | | [...] + + documented as of this encounter H&P Notes Alex Burnett MD - 06/01/2017 10:21 AM PDT PRE-ENDOSCOPY HISTORY AND PRE-SEDATION ASSESSMENT PATIENT NAME: Mendoza Villegas : 1970 TODAY'S DATE: 06/01/2017 PLANNED PROCEDURE: colonoscopy PERTINENT HISTORY/INDICATION FOR PROCEDURE: Mendoza Villegas is a 46 y.o. female who is undergoing endoscopy for evaluation of diarrhea. PAST HISTORY: Past Medical History: Diagnosis Date Arthritis of knee Asthma Bipolar disorder (HCC) Brain tumor (benign) (HCC) DDD (degenerative disc disease), cervical Degenerative joint disease (DJD) of lumbar spine Dysmenorrhea Fibromyalgia History of diabetes mellitus Hypertension Hypertriglyceridemia Memory problem short term Migraine headache without aura Morbid obesity (HCC) Pain in the abdomen PCOS (polycystic ovarian syndrome) Peripheral neuropathy (HCC) 2009 Restless leg syndrome Sleep apnea no CPAP Sleep disturbance Tobacco use disorder Watery diarrhea X 1yr PAST SURGICAL HISTORY Past Surgical History: Procedure Laterality Date BRAIN TUMOR EXCISION 2014 at [facility] SECTION X2 HYSTEROSCOPY with abilation KNEE SURGERY Left 11/20/2016 LAP BAND 2011 SINUS SURGERY SPINAL FUSION Cervical TONSILLECTOMY AND ADENOIDECTOMY [facility] 2013 HOME MEDS: Scheduled Meds: Continuous Infusions: lactated ringers PRN Meds:.albuterol, ondansetron ALLERGIES Allergies Allergen Reactions Oxycodone Other (See Comments) Dizzy and vomitting Zinc Other (See Comments) Patient feels intoxicated Adhesive & Tape Rash Paper tape okay Codeine Nausea Only Mallampati Class 2 (upper half of tonsil fossa) [place] [employer] Anest[employer] Grade:ASA 3 - A patient with severe systemic disease Sedation Plan:Moderate EXAMINATION: BP (!) 159/103 | Pulse 80 | Temp 36.4 C (97.5 F) (Temporal) | Resp 17 | Ht 1.524 m (5') | Wt 102.3 kg (225 lb 8.5 oz) | LMP 05/04/2017 | SpO2 97% | ? No | BM I 44.05 kg/m General: Alert and oriented Throat: Normal Lungs: Clear Heart: Regular rate and rhythm with out significant murmur Abdomen: flat, normal bowel sounds. Soft, nontender 1. Available medical records have been reviewed. 2. Medication list reviewed. IMPRESSION: Patient appropriate for endoscopy. PLAN: 1. Proceed with procedure as stated above with moderate sedation/analgesia 2. Procedure, indications, risks and alternatives explained to patient/family and they agre ed to proceed and consent was signed. 3. Patient will be reevaluated immediately (1-2 minutes) before sedation administration and approved for the plan as stated above. Electronically Signed by: Alex Burnett MD 06/01/2017 [facility] VERIFICATION OF CONSENT (PARQ) The patient was counseled regarding the procedure, its indications, risks, potential compli cations and alternatives. Any questions were answered. Consent was obtained. Alex Burnett MD, 06/01/2017 10:21 [facility] Portions of this chart may have been created with [employer] voice recognition software. Occasi onal wrong-word or sound-alike substitutions may have occurred due to the inherent lassiter itations of voice recognition software. Please read the chart carefully and recognize, using context, where these substitutions have occurred documented in thi s encounter Miscellaneous Notes D-C Instructions Provation - Alex Burnett MD - 06/01/2017 10:59 AM PDTDischarge Ins tructions for Colonoscopy Exams Patient: Mendzoa Villegas : 1970 Acct: [id number] Exam Date: Thursday, June 01, 2017 Doctor: ALEX BURNETT MD You have had an examination of the gastrointestinal tract. The chances of difficulty following this procedure are minimal. The following instructions will assist you in your recovery. ACTIVITIES: Rest quietly until sedation wears off. DO NOT drive a motor vehicle or operate machinery for 24 hours after sedation. Be cautious making critical decisions for 24 hours after sedation. DIET: If throat has been sprayed, do not eat or drink for 1 hour after. Start with a swallow of tap water, if you experience any lack of sensation in your throat, wait another 30 - 60 minutes and start with water again. Once swallowing has returned to normal you may resume your usual diet unless otherwise instructed by your physician. DISCOMFORT: If you had a bowel exam, you may have some abdominal discomfort from the air put into your bowel during the exam. Moving about will help you pass this air. Sometimes the medications given to you during the exam can aggravate the veins. The chemical irritation can cause inflammation or pain along the arm with redness, swelling and warmth. This does not mean there is an infection. You can treat the affected area by applying warm,wet compresses (towels) 4 times a day for 20 minutes at a time until inflammation is resolved. REPORT TO YOUR DOCTOR: Unusual abdominal pain Chest pain or unusual shortness of breath Shoulder pain Nausea, vomiting Fever over 100 degrees, chills Signs of rectal bleeding (red or black stools) Any concern you have resulting from procedure You may reach your physician at . If unable to reach your physician, call [facility] Emergency Department at Ext. [phone] Your doctor recommends these additional instructions: We are waiting for your pathology results. Your physician has recommended a repeat colonoscopy in five to 10 years for surveillance based on pathology results. Return to your nurse practitioner as previously scheduled. Resume your regular diet today. These instructions have been explained to the patient and/or escort. A copy has been given to the patient/escort. Nurse Signature Patient Signature Escort Signature Date ALEX BURNETT MD 06/01/2017 11:45:23 AM This report has been signed electronically. documented in this encounter Plan of Treatment [...] | | | | | | unspecified (HCC) | | | | | | (F31.9) [...] | [facility] | | GastroenterologyPatient Name: Mendoza VillegasProcedsterling Date: 06/01/2017 | PROVATION | | 10:59 AMMRN: [id number] #: [id number] of : | | | 1970Admit Type: AmbulatoryAge: 46Room: [facility] 02Gender: FemaleNote | | | Status: FinalizedAttending MD: ALEX [facility]UR[facility]T [facility]: | | | ColonoscopyIndications: Chronic diarrhea, | [...] | preparation was evaluated using the BBPS ([place] Bowel | | | Preparation Scale) with [...] | results. - Return to nurse practitioner (Gayla [facility]) as | | | previously scheduled. - [...] | | | AMScope Out: 11:41:13 AM [facility], [address] | | | [place] [address] | | |Recommendation: | | | - The patient will be observed post-procedure, until all discharge | | | criteria are met. | | | - Await pathology results. | | | - Repeat colonoscopy in 5-10 years for surveillance based on pathology | | | results. | | | - [facility] as previously | | | scheduled. | [...] |Scope Out: 11:41:13 AM | | | [facility], [address] [facility], [place], [place] | | | [address] | | + + ---+ + +---------+ [...] | identified in any of these biopsies. TJB:[facility] GROSS DESCRIPTION: | | | Received in three parts. A. Received in formalin labeled "Tawnia | | | Bakari" and "right colon bx" on the requisition are five pink-kurse | | | tissue fragments measuring from [...] submitted, all | | | in (C1). ka:IRINA:[facility] PERFORMING LABORATORY: Tissue processing and | | | slide preparation were performed by [facility], [facility] [address] | | | [facility], [facility] [address], [place] [address] (Funeral Location Manager: Shayne Angel | | | [employer] CLIA#: [id number]). Professional interpretation was performed | | | by [facility], [address], [place], [place] | | | [address] (Funeral Location Manager: Shayne Angel M.D.; CLIA#: [id number]). | | | Diagnostician: Jhonatan Cervantes MD [...] ONCE PRN, Wheezing, | | | Starting 06/01/17 at 1000, | | | For 1 [...] mL/hr | Arm | | CONTINUOUS, Starting 06/01/17 | | AM PDT | | | [...]
--- OUTSIDE RECORDS SUMMARY | ~2020-03-16 | XMS | Encounter Summary ---
Demographics + + + | Address | [address] | | | [place] [address] | + + + | Home Phone [...] Team Providers + +------+ + | Care Cooker Loader Name | Role | Phone | + +------+ + | Ashwini Ochoa NP | PCP | | + +------+ + Encounter Details +--------+ + + + + | Date | Type | Department | Care Team | Description | +--------+ + + + + | 06/07/ | Document-Sc | Health Information | Unknown . | | | 2013 | anned | Services [address] | | | | | | Bill Dyson Misha | | | | | | Mailcode: [id number] | | | | | | [facility] | | | | | | [place], [place] | | | | | | [address] | | | | | | [phone] | | | +--------+ + + + [...]
--- OUTSIDE RECORDS SUMMARY | ~2020-03-16 | XMS | Encounter Summary ---
Demographics + + + | Address | [address] | | | [place] [address] | + + + | Home Phone [...] Team Providers + +------+ + | Care Leak Operator Paraffin Plant Name | Role | Phone | + [...] of | [address] [place] [address] | [address] [facility] | | | | | brain (HCC) | [facility] | Ray Dyson | | | | | Procedures | Ray Dyson | Misha Montague | | | | | MRI BRAIN | Rd | Research | | | | | W CONTRAST - | [place], [place] | [place] | | | | | FRAMELESS | [address] | [place], [place] | | | | | STEREOTATIC | Phone: | [address] | | | | | ONLY HI MRI | [phone] | Phone: | | | | | BRAIN | Fax: | [phone] | | | | | CONTRAST | [phone] | Fax: | | | | | | | [phone] | +--------+--------+ + + + + Reason [...] | [facility] for | [place], [place] | | | | | Health and Healing, | [address] | | | | | [facility] | [phone] | | | | | floor [place], [place] | | | | | | [address] | | | | | | [phone] | | | +--------+ + + + [...]
--- OUTSIDE RECORDS SUMMARY | ~2020-03-16 | XMS | Encounter Summary ---
Demographics + + + | Address | [address] | | | [place] [address] | + + + | Home Phone | | + + + | Preferred Language | Unknown | + + + | Marital Status | | + + + | Uatsdin Affiliation | 1027 | + + + | Race | Unknown | + + + | Ethnic Group | Unknown | + + + Author + + + | Author | [facility] | | | and [place] | + + + | Organization | [facility] | | | [...] Team Providers + +------+ + | Care Necktie Centralizing Machine Operator Name | Role | Phone | + +------+ + PCP | Unavailable | + +------+ + Encounter Details +--------+ + + + + | Date | Type | Department | Care Team | Description | +--------+ + + + + | 05/14/ | Emergency | [facility] | Min Mcqueen | | | 1994 | | [facility] | [address] | | | | | [place] [address] | [place] [address] | | | | | [address] | [phone] | | | | | [place], [place] | | | | | | [address] | | | | | | [phone] | | | +--------+ + + + [...]
--- OUTSIDE RECORDS SUMMARY | ~2020-03-16 | XMS | Encounter Summary ---
Demographics + + + | Address | [address] | | | [place] [address] | + + + | Home Phone [...] Providers + +------+ + | Care Research Manufacturing Operator Name | Role | Phone | [...] | | | | | [place], | | | | | | [place] [address] | | | +--------+--------+ + + + [...]
--- OUTSIDE RECORDS SUMMARY | ~2020-03-16 | XMS | Encounter Summary ---
Demographics + + + | Address | [address] | | | [place] [address] | + + + | Home Phone [...] | ECON | Unknown | | | Moria | | | | + + +---------+ + Care Team Providers + +------+ + | Care Vehicle Service Attendant Name | Role | Phone | + +------+ + PCP | Unavailable | + +------+ + Encounter Details +--------+ + + + + | Date | Type | Department | Care Team | Description | +--------+ + + + + | 09/04/ | Hospital | [facility] | Alex Ramon, | | | 1992 | Encounter | [facility] | [address] | | | | | CENTER [address] | [place] | | | | | [address] | [address] | | | | | [place] | | | | | | [address] | | | | | | [phone] | | | +--------+ + + + [...]
--- OUTSIDE RECORDS SUMMARY | ~2020-03-16 | XMS | Encounter Summary ---
Demographics + + + | Address | [address] | | | [place] [address] | + + + | Home Phone | | + + + | Preferred Language | Unknown | + + + | Marital Status | | + + + | Christianity Affiliation | 1027 | + + + [...] Team Providers + +------+ + | Care Revenue Inspector Name | Role | Phone | + +------+ + PCP | Unavailable | + +------+ + Encounter Details +--------+ + + + + | Date | Type | Department | Care Team | Description | +--------+ + + + + | 12/25/ | Hospital | [facility] | John Doyle | | | 2007 | Encounter | MED CTR SLEEP | MD Hawa [address] | | | | | CENTER [address] | [address] [facility] | | | | | [place] | [place] [address] | | | | | [address] | [phone] | | | | | [phone] | | | +--------+ + + + [...]
--- OUTSIDE RECORDS SUMMARY | ~2020-03-16 | XMS | Encounter Summary ---
Demographics + + + | Address | [address] | | | [place] [address] | + + + | Home Phone | | + + + | Preferred Language | Unknown | + + + | Marital Status | | + + + | Jain Affiliation | 1027 | + + + | Race | Unknown | + + + | Ethnic Group | Unknown | + + + Author + + + | Author | [facility] | | | and [place] | + + + | Organization | [facility] | | | [...] Providers + +------+ + | Care Research Professional Name | Role | Phone | [...] | Transaction, | | | | | [place] | Provider Unknown | | | | | [address] | [phone] | | | | | [phone] | | | +--------+ + + + [...] EXTERNAL | | | | performed at [facility] | | LAB | | | | Health; [address]; | | | | | | [place] [address] | | | | + + + [...]
--- OUTSIDE RECORDS SUMMARY | ~2020-03-16 | XMS | Encounter Summary ---
Demographics + + + | Address | [address] | | | [place] [address] | + + + | Home Phone [...] Team Providers + +------+ + | Care Jukebox Checker Name | Role | Phone | [...] [place] | | | | | [address] | [address] | | | | | [phone] | [phone] | | | | | | | [...] EXTERNAL | | | | performed at [facility], [address] | | LAB | | | | [address], | | | | | | [place] [address] | | | | + + + [...]
--- OUTSIDE RECORDS SUMMARY | ~2020-03-16 | XMS | Encounter Summary ---
Demographics + + + | Address | [address] | | | [place] [address] | + + + | Home Phone [...] Team Providers + +------+ + | Care Shell Trim Tool Setter Name | Role | Phone | [...] [place] | | | | | [address] | [address] | | | | | [phone] | [phone] | | | | | | | [...] | | | | | | at [facility], [address] | | | | | | [address], | | | | | | [place] [address] | | | | + + + [...]
--- OUTSIDE RECORDS SUMMARY | ~2020-03-16 | XMS | Encounter Summary ---
Demographics + + + | Address | [address] | | | [place] [address] | + + + | Home Phone | | + + + | Preferred Language | Unknown | + + + | Marital Status | | + + + | Alevism Affiliation | 1027 | + + + | Race | Unknown | + + + | Ethnic Group | Unknown | + + + Author + + + | Author | [facility] | | | and [place] | + + + | Organization | [facility] | | | [...] Team Providers + +------+ + | Care Cattle Dehorner Name | Role | Phone | + +------+ + PCP | Unavailable | + +------+ + Encounter Details +--------+ + + + + | Date | Type | Department | Care Team | Description | +--------+ + + + + | 06/16/ | Hospital | [facility] | Handy Anderson P, | | | 1993 | Encounter | [facility] | DO [address] | | | | | GENERIC OP CONV DEPT | [address] [place], [place] | | | | | [address] | [id number] | | | | | [place], [place] | | | | | | [address] | | | | | | [phone] | | | +--------+ + + + [...]
--- OUTSIDE RECORDS SUMMARY | ~2020-03-16 | XMS | Encounter Summary ---
Demographics + + + | Address | [address] | | | [place] [address] | + + + | Home Phone [...] Team Providers + +------+ + | Care Calender Operator Helper Name | Role | Phone | + +------+ + PCP | Unavailable | + +------+ + Encounter Details +--------+ + + + + | Date | Type | Department | Care Team | Description | +--------+ + + + + | 04/07/ | Hospital | [facility] | Handy Anderson P, | | | 1994 | Encounter | [facility] | DO [address] | | | | | GENERIC OP CONV DEPT | RD [place], [place] | | | | | [address] | [id number] | | | | | [place], [place] | | | | | | [address] | | | | | | [phone] | | | +--------+ + + + [...]
--- OUTSIDE RECORDS SUMMARY | ~2020-03-16 | XMS | Encounter Summary ---
Demographics + + + | Address | [address] | | | [place] [address] | + + + | Home Phone [...] Team Providers + +------+ + | Care Chief Of Production Name | Role | Phone | + +------+ + | Ashwini Ochoa NP | PCP | | + +------+ + Encounter Details +--------+ + + + + | Date | Type | Department | Care Team | Description | +--------+ + + + + | 03/06/ | Document-Sc | Health Information | Unknown . | | | 2013 | anned | Services [id number] | | | | | | Bill Dyson Misha | | | | | | Mailcode: OP17A | | | | | | [facility] | | | | | | [place], [place] | | | | | | [address] | | | | | | [phone] | | | +--------+ + + + [...]
--- OUTSIDE RECORDS SUMMARY | ~2020-03-16 | XMS | Encounter Summary ---
Demographics + + + | Address | [address] | | | [place] [address] | + + + | Home Phone [...] Providers + +------+ + | Care Associate Brand Manager Name | Role | Phone | + +------+ + | Ashwini Ochoa NP | PCP | | + +------+ + Encounter Details +--------+ + + + + | Date | Type | Department | Care Team | Description | +--------+ + + + + | 03/06/ | Document-Sc | Health Information | Unknown . | | | 2013 | anned | Services [id number] | | | | | | Bill Dyson Misha | | | | | | Mailcode: OP17A | | | | | | [facility] | | | | | | [place], [place] | | | | | | [address] | | | | | | [phone] | | | +--------+ + + + [...]
--- OUTSIDE RECORDS SUMMARY | ~2020-03-16 | XMS | Encounter Summary ---
Demographics + + + | Address | [address] | | | [place] [address] | + + + | Home Phone | | + + + | Preferred Language | Unknown | + + + | Marital Status | | + + + | Pentecostal Affiliation | LDS | + + + [...] + +------+ + | Care Director Of Outreach Name | Role | Phone | + [...] | | | [facility] | Road | [place], [place] | | | | | GENETICS | [place], [place] | [address] | | | | | | [address] | Phone: | | | | | | Phone: | [phone] | | | | | | [phone] | Fax: | | | | | | Fax: | [phone] | | | | | | [phone] | | +--------+--------+ + + + + [...] | | | | | VENOUS | [place], [place] | [address] | | | | | [address] | [address] | Physician's | | | | | EXTREMITY | Phone: | Pavilion | | | | | BILAT COMP | [phone] | [place], [place] | | | | | | Fax: | [address] | | | | | | [phone] | Phone: | | | | | | | [phone] | | | | | | | Fax: | | | | | | | [phone] | +--------+--------+ + + + + Reason [...] | (Primary Dx) | | | | [facility] for | [place], [place] | | | | | Health and Healing, | [address] | | | | | [facility] | [phone] | | | | | floor [place], [place] | | | | | | [address] | | | | | | [phone] | | | +--------+---------+ + + + [...] every six hours. Take 1 tablet by [facility] every 8 hours for 2 days. [...] 2) Contact our office or present to [facility] Emergency Department for severe headache not rel [...] | | + +---------+ + + | [facility] DEPARTMENT OF | | | | | RADIOLOGY | | | | + +---------+ + + documented in this encounter Visit Diagnoses + + | Diagnosis | + + | Bilateral leg edema - Primary Edema | + + documented in this encounter
--- OUTSIDE RECORDS SUMMARY | ~2020-03-16 | XMS | Encounter Summary ---
Demographics + + + | Address | [address] | | | [place] [address] | + + + | Home Phone [...] Team Providers + +------+ + | Care Malware Analyst Name | Role | Phone | [...] | [facility] | DO [address] | | | | | GENERIC OP CONV DEPT | [address] [place], [place] | | | | | [address] | [id number] | | | | | [place], [place] | | | | | | [address] | | | | | | [phone] | | | +--------+ + + + [...]
--- OUTSIDE RECORDS SUMMARY | ~2020-03-16 | XMS | Encounter Summary ---
Demographics + + + | Address | [address] | | | [place] [address] | + + + | Home Phone [...] Team Providers + +------+ + | Care Mortgage Manager Name | Role | Phone | [...] | | | | | VENOUS | [place], [place] | [address] | | | | | [address] | [address] | Physician's | | | | | EXTREMITY | Phone: | Pavilion | | | | | BILAT COMP | [phone] | [place], [place] | | | | | | Fax: | [address] | | | | | | [phone] | Phone: | | | | | | | [phone] | | | | | | | Fax: | | | | | | | [phone] | +--------+--------+ + + + + Reason [...] | | | | | VENOUS | [place], [place] | [address] | | | | | [address] | [address] | Physician's | | | | | EXTREMITY | Phone: | Pavilion | | | | | BILAT COMP | [phone] | [place], [place] | | | | | | Fax: | [address] | | | | | | [phone] | Phone: | | | | | | | [phone] | | | | | | | Fax: | | | | | | | [phone] | +--------+--------+ + + + + Encounter [...] | | | | | | Pavilion [place], | | | | | | [place] [address] | | | | | | [phone] | | | +--------+ + + + [...] 14 | | | | bedtime. 2 [id number] | | | | | | | [...] | + +---------+ + + | [facility] DEPARTMENT OF | | | | | RADIOLOGY | | | | + +---------+ + + documented in this encounter Visit Diagnoses + + | Diagnosis | + + | Bilateral leg edema Edema | + + documented in this encounter"
--- OUTSIDE RECORDS SUMMARY | ~2020-03-16 | XMS | Encounter Summary ---
Demographics + + + | Address | [address] | | | [place] [address] | + + + | Home Phone [...] Author | [facility] [...] Providers + +------+ + | Care Technical Writer Name | Role | Phone | + [...] [address] | | | | | [place] | [place] | | | | | [address] | [address] | | | | | [phone] | [phone] | | | | | | | [...] EXTERNAL | | | | performed at [facility], [address] | | LAB | | | | [address], | | | | | | [place] [address] | | | | + + + [...]
--- OUTSIDE RECORDS SUMMARY | ~2020-03-16 | XMS | Encounter Summary ---
Demographics + + + | Address | [address] | | | [place] [address] | + + + | Home Phone [...] Team Providers + +------+ + | Care Java Spring Developer Name | Role | Phone | [...] | [address] | [address] [facility] | | | | | radha [place] for | [facility] | | | | | Health and Healing, | [place], [place] | | | | | [facility] | [address] | | | | | floor [place], [place] | [phone] | | | | | [address] | | | | | | [phone] | | | +--------+ + + + [...]
--- OUTSIDE RECORDS SUMMARY | ~2020-03-16 | XMS | Encounter Summary ---
Demographics + + + | Address | [address] | | | [place] [address] | + + + | Home Phone | | + + + | Preferred Language | Unknown | + + + | Marital Status | | + + + | Holiness Affiliation | 1027 | + + + | Race | Unknown | + + + | Ethnic Group | Unknown | + + + Author + + + | Author | [facility] | | | and [place] | + + + | Organization | [facility] | | | and [...] Team Providers + +------+ + | Care Aircraft Electronics Technical Officer Name | Role | Phone | + +------+ + PCP | Unavailable | + +------+ + Encounter Details +--------+ + + + + | Date | Type | Department | Care Team | Description | +--------+ + + + + | 05/04/ | Hospital | [facility] | Eloisa Marrero MD | | | 1993 | Encounter | [facility] | [address] | | | | | GENERIC OP CONV DEPT | [place] [address] | | | | | [address] | [phone] | | | | | [place], [place] | | | | | | [address] | | | | | | [phone] | | | +--------+ + + + [...]
--- OUTSIDE RECORDS SUMMARY | ~2020-03-16 | XMS | Encounter Summary ---
Demographics + + + | Address | [address] | | | [place] [address] | + + + | Home Phone [...] Providers + +------+ + | Care Apprentice Instrument Technician Name | Role | Phone | [...] [id number] | | | | | | [facility] | | | | | | [address] [place], [place] | | | | | | [address] | | | | | | [phone] | | | +--------+ + + + [...] Left; Chest; Subclavian | [facility] | Eran Wade RN | | [facility] | | [...] mg by mouth once daily in [facility]. TRAMADOL 50 MG TABLET Take [...] by mouth once daily at bedtime. 2 ddsj=807 mg CHILDREN'S MULTI-VIT GUMMIES ORAL Take by [...] perfume, lotions or powder. Remove any nail greek from at least one fingernail. Do not [...] your procedure. Surgery Check in Locations Admitting [facility] Surgery Check in Time: Someone [...] is after office hours, call the [facility] earth auger operator at [phone] and ask them to page your doc tor. documented in this encounter Plan of Treatment Not on filedocumented as of this encounter Visit Diagnoses Not on filedocumented in this encounter"
--- OUTSIDE RECORDS SUMMARY | ~2020-03-16 | XMS | Encounter Summary ---
Demographics + + + | Address | [address] | | | [place] [address] | + + + | Home Phone [...] Team Providers + +------+ + | Care Mall Plant Caretaker Name | Role | Phone | + [...] | | | | | | | NC | | | | | | | COLONOSCOPY | | | | | | | FLX DX | | | | | | | W/COLLJ SPEC | | | | | | | WHEN PFRMD | | | | | | | NC | | | | | | | COLONOSCOPY | | | | | | | W/BIOPSY | | | | | | | SINGLE/MULTI | | | | | | | PLE NC | | | | | | | COLSC FLX | | | | | | | W/RMVL OF | | | | | | | TUMOR POLYP | | | | | | | LESION SNARE | | | | | | | TQ NC | | | | | | | ANESTH,INTES | | | | | | | EVELINA,SCOPE,L | | | | | | | OW | | | | | | | COLONOSCOPY | | | +--------+--------+ + + + + Encounter Details +--------+---------+ + + + | Date | Type | Department | Care Team | Description | +--------+---------+ + + + | 06/01/ | Surgery | [facility] | Alex Burnett | COLONOSCOPY | | 2017 | | [facility] INTRA OP | MD Kai [address] | | | | | [address] | [facility] | | | | | [place] | [place] [address] | | | | | [address] | [phone] | | | | | [phone] | | | +--------+---------+ + + + [...] + + + | Blood Pressure | 159/103 | 06/01/2017 9:47 AM | | | | | PDT | | + + + + + | Pulse | 80 | 06/01/2017 9:47 AM | | | | | PDT | | + + + + + | Temperature | 36.4 C (97.5 F) | 06/01/2017 9:47 AM | | | | | PDT | | + + + + + | Respiratory Rate | 17 | 06/01/2017 9:47 AM | | | | | PDT | | + + + + + | Oxygen Saturation | 97% | 06/01/2017 9:47 AM | | | [...] | | 0 | | | | [id number] | as needed (pain). | | | [...] (HCC) 2010 Restless leg syndrome Sleep apnea no CPAP Sleep disturbance Tobacco use disorder Watery diarrhea X 1yr PAST SURGICAL HISTORY Past Surgical History: Procedure Laterality Date BRAIN TUMOR EXCISION 2014 at [facility] SECTION X2 HYSTEROSCOPY with abilation KNEE SURGERY Left 11/20/2016 LAP BAND 2011 SINUS SURGERY SPINAL FUSION Cervical TONSILLECTOMY AND ADENOIDECTOMY [facility] 2013 HOME MEDS: Scheduled Meds: Continuous Infusions: lactated ringers PRN Meds:.albuterol, ondansetron ALLERGIES Allergies Allergen Reactions Oxycodone Other (See Comments) Dizzy and vomitting Zinc Other (See Comments) Patient feels intoxicated Adhesive & Tape Rash Paper tape okay Codeine Nausea Only Mallampati Class 2 (upper half of tonsil fossa) [place] Society of Anesthesia Grade:ASA 3 - A [...] Electronically Signed by: Alex Burnett MD 06/01/2017 [facility] VERIFICATION OF CONSENT (PARQ) The patient was counseled regarding the procedure, its indications, risks, potential compli cations and alternatives. Any questions were answered. Consent was obtained. Alex Burnett MD, 06/01/2017 10:21 [facility] Portions of this chart may have been created with Gen110 voice recognition software. Occasi onal wrong-word or sound-alike substitutions may have occurred due to the inherent lassiter itations of voice recognition software. Please read the chart carefully and recognize, using context, where these substitutions have occurred documented in thi s encounter Miscellaneous Notes D-C Instructions Provation - Alex Burnett MD - 06/01/2017 10:59 AM PDTDischarge Ins tructions for Colonoscopy Exams Patient: Mendoza Villegas : 1970 Acct: [id number] Exam Date: Thursday, June 01, 2017 Doctor: [...] If unable to reach your physician, call [facility] Emergency Department at Ext. 2500 Your doctor [...] | [facility] | | GastroenterologyPatient Name: Mendoza VillegasProcedure Date: 06/01/2017 | [facility]OV[facility] | | 10:59 AMMRN: [id number] #: [id number] of : | | | 1970Admit Type: AmbulatoryAge: 46Room: [facility] 02Gender: FemaleNote | | | Status: FinalizedAttending MD: TAMI BARTONrocedure: | | | ColonoscopyIndications: Chronic diarrhea, | [...] | preparation was evaluated using the BBPS ([place] Bowel | | | Preparation Scale) with [...] results. - Return to nurse practitioner ([facility]) as | | | previously scheduled. [...] | | | AMScope Out: 11:41:[address] [facility], [address] | | [place] [address] | | |Recommendation: | | | - The patient will be observed post-procedure, until all discharge | | | criteria are met. | | | - Await pathology results. | | | - Repeat colonoscopy in 5-10 years for surveillance based on pathology | | | results. | | | - [facility] as previously | | | scheduled. | [...] |Scope Out: 11:41:13 AM | | | [facility], [address], [place] | | | [address] | | + + ---+ + +---------+ [...] | identified in any of these biopsies. TJB:[facility] GROSS DESCRIPTION: | | | Received [...] submitted, all | | | in (C1). ka:IRINA:[facility] PERFORMING LABORATORY: Tissue processing and | | | slide preparation were performed by [facility], [address], [place] [address] ([employer]: Shayne Angel | | | [facility] CLIA#: [id number]). Professional interpretation was performed | | | by [facility], [address], [place], [place] | | | [address] ([employer]: Shayne Angel M.D.; CLIA#: [id number]). | | | Diagnostician: Jhonatan Cervantes MD [...] filedocumented in this encounter Administered Medications + +--------+---------+------+------+------+ [...]
--- OUTSIDE RECORDS SUMMARY | ~2020-03-16 | XMS | Encounter Summary ---
Demographics + + + | Address | [address] | | | [place] [address] | + + + | Home Phone [...] Team Providers + +------+ + | Care Date Pitter Name | Role | Phone | + [...] [address] | | | | | [facility] | [place], [place] | | | | | Health and Healing, | [address] | | | | | [facility] | [phone] | | | | | floor [place], [place] | | | | | | [address] | | | | | | [phone] | | | +--------+ + + + [...]
--- OUTSIDE RECORDS SUMMARY | ~2020-03-16 | XMS | Encounter Summary ---
Demographics + + + | Address | [address] | | | [place] [address] | + + + | Home Phone [...] Team Providers + +------+ + | Care Dental Laboratory Manager Name | Role | Phone | + +------+ + PCP | Unavailable | + +------+ + Encounter Details +--------+ + + + + | Date | Type | Department | Care Team | Description | +--------+ + + + + | 07/01/ | Hospital | [facility] | Handy Anderson P, | | | 1994 - | Encounter | [facility] | DO [address] | | | | | GENERIC OP CONV DEPT | [address] [place], [place] | | | 07/15/ | | [address] | [id number] | | | 1993 | | [place], [place] | | | | | | [address] | | | | | | [phone] | | | +--------+ + + + [...]
--- OUTSIDE RECORDS SUMMARY | ~2020-03-16 | XMS | Encounter Summary ---
Demographics + + + | Address | [address] | | | [place] [address] | + + + | Home Phone [...] Providers + +------+ + | Care Roll Machine Operator Name | Role | Phone [...] [place] | | | | | | [address] | | | +--------+ + + + [...]
--- OUTSIDE RECORDS SUMMARY | ~2020-03-16 | XMS | Encounter Summary ---
Demographics + + + | Address | [address] | | | [place] [address] | + + + | Home Phone | | + + + | Preferred Language | Unknown | + + + | Marital Status | | + + + | Jew Affiliation | LDS | + + + [...] Team Providers + +------+ + | Care Lead Producer Name | Role | Phone | + [...] [address] | | | | | | [place], [place] | | | | | | [address] | | | +--------+ + + + [...]
--- OUTSIDE RECORDS SUMMARY | ~2020-03-16 | XMS | Encounter Summary ---
Demographics + + + | Address | [address] | | | [place] [address] | + + + | Home Phone [...] Team Providers + +------+ + | Care Rubber Stamp Maker Name | Role | Phone | [...] | | | | MRI BRAIN | [place], [place] | | | | | | TUMOR | [address] | | | | | | EVALUATION | Phone: | | | | | | [facility] CONTRAST | [phone] | | | | | | | Fax: | | | | | | | [phone] | | +--------+--------+ + + + + [...] Avenue | | | | | [facility] [place] for | [place], [place] | | | | | Health and Healing, | [address] | | | | | [facility] | [phone] | | | | | floor [place], [place] | | | | | | [address] | | | | | | [phone] | | | +--------+ + + + [...]
--- OUTSIDE RECORDS SUMMARY | ~2020-03-16 | XMS | Encounter Summary ---
Demographics + + + | Address | [address] | | | [place] [address] | + + + | Home Phone [...] Team Providers + +------+ + | Care Agency Legal Counsel Name | Role | Phone | + [...] [address] | | | | | | [place], [place] | | | | | | [address] | | | +--------+ + + + [...]
--- OUTSIDE RECORDS SUMMARY | ~2020-03-16 | XMS | Encounter Summary ---
Demographics + + + | Address | [address] | | | [place] [address] | + + + | Home Phone [...] Team Providers + +------+ + | Care Oil Separator Name | Role | Phone | + [...] Khan | | | | | [facility] | [address] | | | | | Hospital Admitting | [place], [place] | | | | | Desk Located on the | [address] | | | | | 9th floor | [phone] | | | | | [place], [place] | | | | | | [address] | | | +--------+ + + + [...]
--- OUTSIDE RECORDS SUMMARY | ~2020-03-16 | XMS | Encounter Summary ---
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
--- OUTSIDE RECORDS SUMMARY | ~2020-03-16 | XMS | Encounter Summary ---
Demographics + + + | Address | [address] | | | [place] [address] | + + + | Home Phone [...] Team Providers + +------+ + | Care Administrator Name | Role | Phone | + +------+ + | Ronda Wade MD | PCP | | + +------+ + Encounter Details +--------+ + + + + | Date | Type | Department | Care Team | Description | +--------+ + + + + | 04/21/ | Abstract | [facility] | Ab[place], | | | 2016 | | GASTROENTEROLOGY | FAISAL [address] | | | | | [address] [place] | [address] | | | | | [address] [place] | [place] | | | | | [address] | [address] | | | | | [phone] | | | +--------+ + + + [...] +--------+ + + + | EXTERNAL LAB: LARS | Routin | 01/06/2017 | | Results [...] +--------+ + + + | EXTERNAL LAB: AST | Routin | 01/06/2017 | | Results [...] + + + + | Result | 6-20-17 no ova and | | | | [...] + + + + + + | H. pylori | Negative | | | | | IgG Ab | | | | | + + [...] + + + + | Clarity, | Clear | | | | | Urine | | [...] | + +---------+ + + External Lab: BUN (01/06/2017) + +-------+ + + + | [...] - 1.03 | EXTERNAL | | | [place], | | | LAB | | | [...]
--- OUTSIDE RECORDS SUMMARY | ~2020-03-16 | XMS | Encounter Summary ---
Demographics + + + | Address | [address] | | | [place] [address] | + + + | Home Phone | | + + + | Preferred Language | Unknown | + + + | Marital Status | | + + + | Religion Affiliation | LDS | + + + | Race | White | + + + | Ethnic Group | Not or | + + + Author + + + | Author | [facility] | + + + | Organization | [facility] | + + + | [...] Team Providers + +------+ + | Care Professional Engineer Name | Role | Phone | + +------+ + | Ashwini Ochoa NP | PCP | | + +------+ + Encounter Details +--------+ + + + + | Date | Type | Department | Care Team | Description | +--------+ + + + + | 06/07/ | Document-Sc | Health Information | Unknown . | | | 2013 | anned | Services 9748 | | | | | | Bill [address]yson Misha | | | | | | Mailcode: [id number] | | | | | | [facility] | | | | | | [place], [place] | | | | | | [address] | | | | | | [phone] | | | +--------+ + + + [...]
--- OUTSIDE RECORDS SUMMARY | ~2020-03-16 | XMS | Encounter Summary ---
Demographics + + + | Address | [address] | | | [place] [address] | + + + | Home Phone [...] Team Providers + +------+ + | Care Granite Polisher Name | Role | Phone | + [...] [address] | | | | | | [place], [place] | | | | | | [address] | | | +--------+ + + + [...]
--- OUTSIDE RECORDS SUMMARY | ~2020-03-16 | XMS | Encounter Summary ---
Demographics + + + | Address | [address] | | | [place] [address] | + + + | Home Phone [...] Team Providers + +------+ + | Care Structural Worker Name | Role | Phone | + +------+ + PCP | Unavailable | + +------+ + Encounter Details +--------+ + + + + | Date | Type | Department | Care Team | Description | +--------+ + + + + | 05/07/ | Hospital | [facility] | Handy Anderson P, | | | 1993 | Encounter | [facility] | DO [address] | | | | | GENERIC OP CONV DEPT | [address] [place], [place] | | | | | [address] | [id number] | | | | | [place], [place] | | | | | | [address] | | | | | | [phone] | | | +--------+ + + + [...]
--- OUTSIDE RECORDS SUMMARY | ~2020-03-16 | XMS | Encounter Summary ---
Demographics + + + | Address | [address] | | | [place] [address] | + + + | Home Phone [...] Providers + +------+ + | Care Assistant Professor Of Spanish Name | Role | Phone | + [...] [place] | | | | | [address] | [address] | | | | | [phone] | [phone] | | | | | | | [...] | | | | performed at [facility] | | | | | | [facility]; [address]; | | | | | | [place] [address] | | | | + + + [...]
--- OUTSIDE RECORDS SUMMARY | ~2020-03-16 | XMS | Encounter Summary ---
Demographics + + + | Address | [address] | | | [place] [address] | + + + | Home Phone [...] Team Providers + +------+ + | Care Temporary Office Assistant Name | Role | Phone | [...] Avenue | | | | | [facility] for | [place], [place] | | | | | Health and Healing, | [address] | | | | | [facility] | [phone] | | | | | [place], [place] | | | | | | [address] | | | | | | [phone] | | | +--------+ + + + [...]
--- OUTSIDE RECORDS SUMMARY | ~2020-03-16 | XMS | Encounter Summary ---
Demographics + + + | Address | [address] | | | [place] [address] | + + + | Home Phone | | + + + | Preferred Language | Unknown | + + + | Marital Status | | + + + | Yazdanism Affiliation | 1027 | + + + [...] Team Providers + +------+ + | Care Metal Stud Framer Name | Role | Phone | + [...] [place] | | | | | [address] | [address] | | | | | [phone] | [phone] | | | | | | | [...] | REQUESTS LEFT AC DRAWN BY LAB/[address] | | | Testing performed at | | | [facility]; [address]; [place] [address] CULTURE | | | NO GROWTH | | | Testing performed at [facility], [address] [facility] | | | [place] [address] | | | | | + + + + +---------+ + + | Performing | Address | City/State/Zipcode | Phone Number | | Organization | | | | + +---------+ + + | EXTERNAL LAB | | | | + +---------+ + + documented in this encounter Visit Diagnoses Not on filedocumented in this encounter"
--- OUTSIDE RECORDS SUMMARY | ~2020-03-16 | XMS | Encounter Summary ---
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 | | | | [address] | | FS, ??? audelia), see | [...] Reason For Admission: See above Hospital Course: eMndoza Villegas is a 44 y.o. 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 We are located at the [facility], [address] [place] [address]. Address: [address] [place] [address]. Please call [phone] for questions o r concerns. 2. Follow up with your PCP to review your hospital course and medication changes. Please call to schedule this appointment. Future Appointments Date & Time Provider Department Dept Phone Center 11/09/2014 9:30 AM Bart Graham Neurosurgery at [facility] [phone] Neurosurgery Discharging Physician: JAIME HOWARD MD Attending [...] 14 | | | | bedtime. 2 jcab=[id number] | | | | | | | [...] issues Jaime Howard MD Neurosurgery Resident Pager #[phone] MEDICATIONS Current Facility-Administered Medications Medication acetaminophen (TYLENOL) [...] 7NSICU ATTENDING NEUROINTENSIVIST PROGRESS NOTE Team Pager: [phone] Attendin -------- EVENING NOTE -------- Date:10/25/2014 Critical [...] s/s of infection # Bipolar: Restart Wellbutrin, Volga, Duloxetine, Ziprasidone, and lorazepam (prn) # Lines: [...] Sachin Ward MD [facility] DEPARTMENT: [id number] ICU NEURO Place of Service:- Inpatient Date of Service: 10/25/2014 CSN: [id number] Suggested Modifier: None Suggested CPT: TO NONPROFIT DIRECTOR RELEVANT DATA: Last Vitals: BP 112/66 | [...] treatment decision maker. [facility] DEPARTMENT: [id number] CRITICAL CARE Place of Service: Inpatient Date of Service: 10/25/2014 CSN: [id number] Suggested Level of Care: 34864 - CRITICAL CARE, 1ST HOUR EACH DAY [...] MRI -dexamethasone 4mg q6--slow taper ordered. -medication PHARMACEUTICAL SPECIALTY REPRESENTATIVE: Geodon 160mg qHS, tramadol 50mg q6hr [...] for [place] - Diet: Regular diet - [facility] bowel protocol - [...] -SCDs for DVT prophy -Daily CBC - Andreson culture for fever >/ 38.3 Endocrine: # [...] TORITO GONG, VALENTINA [facility] DEPARTMENT: [id number] ICU NEURO Place of Service:- Inpatient Date of Service: 10/25/2014 CSN: [id number] Suggested Modifier: None Suggested CPT: TO NONPROFIT DIRECTOR Kareen Martinez MD - 2014 6:49 PM [...] - 2014 6:19 PM PDT 7NSICU ATTENDING PROJECT PLANNER DAILY PROGRESS NOTE Team Pager: [phone] Attendin Date:2014 Critical Care Attending Physician: SACHIN [...] asthma Home meds: Ziprasidone, Tramadol, Topiramate, Lorazepam, Volga, Lansoprazole, Dilaudid, Celecoxib, g abapentin, duloxetine, bupropion, [...] opioids: continue gabapentin # Bipolar: Restart Wellbutrin, Volga, Duloxetine, Ziprasidone, and lorazepam (prn) # Lines: [...] Sachin Ward MD [facility] DEPARTMENT: [id number] ICU NEURO Place of Service:- Inpatient Date of Service: erEDICAL RECORD NUMBER [id number] CSN: [id number] Suggested Modifier: None Suggested CPT: TO NONPROFIT DIRECTOR RELEVANT DATA: Last Vitals: BP 139/80 | [...] CHENG | [address] | [place], [place] | | | MALINA NELSON OF CARE | [address] | [address] | | | TESTS | | | [...] SALLYAM | [address] | [place], [place] | | | LESLIE POINT OF CARE | [address] | [address] | | | TESTS | | | [...] | + + + + + | [facility] | [address] | [place] [address] | | | SERVICES, CORE | KAYLEN [...] | | | LABORATORY | | | SWISS | | | SERVICES, | | | [...] the MDRD equation recommended by the | [facility] | | National Kidney Disease Education [...] | + + + + + | [facility] | [address] | [place] [address] | | | GABRIELLE MIRELES | KAYLEN [...] (H) | 60 - 99 mg/dL | [facility] - | | | GLUCOSE, | [...] PROSPER | [address] | [place], [place] | | | LESLIE POINT OF CARE | [address] | [address] | | | TESTS | | | [...] PROSPER | [address] | [place], [place] | | | MALINA NELSON OF BEL | [facility] | [address] | | | TESTS | | | [...] PROSPER | [address] | [place], [place] | | | LESLIE POINT OF CARE | [facility] | [address] | | | TESTS | | | [...] [facility] | [address] | [place] [address] | | | SERVICES, CORE | KAYLEN [...] | | | LABORATORY | | | SWISS | | | SERVICES, | | | [...] | + + + + + | [facility] | [address] | [place] [address] | | | SERVICES, CORE | KAYLEN [...] CHENG | [address] | [place], [place] | | | MALINA NELSON OF BEL | [address] | [address] | | | TESTS | | | [...] MARQUAM | [address] | [place], [place] | | | LESLIE POINT OF CARE | [address] | [address] | | | TESTS | | | [...] MARQUAM | [address] | [place], [place] | | | LESLIE POINT OF CARE | [address] | [address] | | | TESTS | | | [...] CHENG | [address] | [place], [place] | | | MALINA NELSON OF BEL | [address] | [address] | | | TESTS | | | | + + + + + OPERATION RECORD (10/26/2014 9:22 AM PDT) + + | Transcriptions | + + | Bart Graham MD - 2014 10:30 PM PDT Date of Service: 2014 Attending | | Surgeon: aBrt Graham MD Labeling Associate(s): Brady Conroy MD, | | PhD. [...] and she was placed in the Bhagat grease maker head and flipped into | | the prone position on chest rolls. Her arms were tucked at her sides and all pressure | | points were carefully padded. We then registered the [employer] frameless stereotactic | | navigation system with [...] curette with Kerrison punches. We used a Orrick dissector to | | carefully dissect the [...] the subarachnoid space. We then used a [place] | | elevator and opened the dura [...] were removed. She was removed from the [place] grease maker head | | and flipped into the [...] 2014 | | 18:04:22DT: 2014 22:30:30Job #: [id number] | + + CAPILLARY BLOOD GLUCOSE (NO [...] SALLYAM | [address] | [place], [place] | | | MALINA NELSON OF CARE | [address] | [address] | | | TESTS | | | [...] CHENG | [address] | [place], [place] | | | MALINA NELSON OF BEL | [address] | [address] | | | TESTS | | | [...] [facility] | [address] | [place] [address] | | | SERVICES, CORE | KAYLEN [...] | | | LABORATORY | | | SWISS | | | SERVICES, | | | [...] | + + + + + | [facility] [email or web address] | [address] | [place] [address] | | | GABRIELLE MIRELES | KAYLEN [...] - PROSPER | [address] | [place], [place] | | | MALINA NELSON OF CARE | [facility] | [address] | | | TESTS | | | [...] (H) | 60 - 99 mg/dL | [facility] - | | | GLUCOSE, | [...] CHENG | [address] | [place], [place] | | | MALINA NELSON OF [facility] | [facility] | [address] | | | TESTS | | | [...] PROSPER | [address] | [place], [place] | | | MALINA NELSON OF BEL | [address] | [address] | | | TESTS | | | [...] CHENG | [address] | [place], [place] | | | LESLIE POINT OF [facility] | [address] | [address] | | | TESTS | | | [...] [facility] | [address] | [place] [address] | | | SERVICES, SPECIAL | PARK [...] | + + + + + | [facility] | [address] | [place] [address] | | | SERVICES, CORE | PARK [...] | | | LABORATORY | | | SWISS | | | SERVICES, | | | [...] | + + + + + | [facility] | [address] | [place] [address] | | | SERVICES, GABRIELLE | KAYLEN [...] | | | | | | contrast. [id number] | | | | | | reformatted [...] [facility] | [address] | [place] [address] | | | SERVICES, CORE | PARK [...] | | | LABORATORY | | | SWISS | | | SERVICES, | | | [...] the MDRD equation recommended by the | [facility] | | National Kidney Disease Education [...] | + + + + + | [facility] | [address] | [place] [address] | | | CHI, GABRIELLE | KAYLEN [...] | + + + + + | [facility] | [address] | [place] [address] | | | SERVICES, CORE | PARK [...] [facility] | [address] | [place] [address] | | | SERVICES, GABRIELLE | PARK [...] | + + + + + | [facility] | [address] | [place] [address] | | | GABRIELLE MIRELES | KAYLEN [...] PROSPER | [address] | [place], [place] | | | MALINA NELSON OF CARE | [facility] | [address] | | | TESTS | | | [...] PROSPER | [address] | [place], [place] | | | MALINA NELSON OF BEL | [facility] | [address] | | | TESTS | | | [...] CHENG | [address] | [place], [place] | | | LESLIE POINT OF CARE | [address] | [address] | | | TESTS | | | [...] MARQUAM | [address] | [place], [place] | | | MALINA NELSON OF CARE | [facility] | [address] | | | TESTS | | | | + + + + + CHLORIDE, POC (2014 1:21 PM PDT) + +---------+ + + + | Component | Value | Ref Range | Performed | Pathologist | | | | | At | Signature | + +---------+ + + + | CHLORIDE, | 113 (H) | 97 - 108 mmol/L | MYRIAM - | | | POC | | [...] - MARQUAM | [address] | [place], [place] | | | MALINA NELSON OF CARE | [facility] | [address] | | | TESTS | | | [...] CHENG | [address] | [place], [place] | | | LESLIE POINT OF CARE | [address] | [address] | | | TESTS | | | [...] - MARQUAM | [address] | [place], [place] | | | MALINA NELSON OF CARE | [facility] | [address] | | | TESTS | | | [...] CHENG | [address] | [place], [place] | | | LESLIE POINT OF CARE | [address] | [address] | | | TESTS | | | [...] mass | | | | | | [id number] x 12 mm in | | | [...] [facility] | [address] | [place] [address] | | | SERVICES, | [address] [...] | + + + + + | [facility] | [address] | [place] [address] | | | SERVICES, | [address] | | | | TRANSFUSION MEDICINE | | | | + + + + + INTRAOPERATIVE NEURO MONITORING (2014) + + + | Narrative | Performed At | + + + | Patient Name: Mendoza Villegas Date of : 1970 Medical | | | Record Number: [id number] Date of Test: 2014 Place of | | | Service: IP Intra Op (70) [id number] INTRAOPERATIVE NEURO | | | MONITORING History: [...] of | | | Neurology Suggested CPT: 56283 - IOM Remote x 3 hr(s) 97925 - | | | Short Latency EP's Upper AND Lower extremities 52287 - Central Motor | | | EP's Upper AND Lower extremities 81622 - EMG Cranial Bilateral - IOM | | | 93033 - Neuromuscular Junction Test Suggested Diagnosis: 237.5 [...] | + + + + + | [facility] | [address] | [place] [address] | | | PATHOLOGY | [address] [...]
--- OUTSIDE RECORDS SUMMARY | ~2020-03-16 | XMS | Encounter Summary ---
Demographics + + + | Address | [address] | | | [place] [address] | + + + | Home Phone [...] Team Providers + +------+ + | Care Pattern Molder Name | Role | Phone | + +------+ + | Ashwini Ochoa NP | PCP | | + +------+ + Encounter Details +--------+ + + + + | Date | Type | Department | Care Team | Description | +--------+ + + + + | 01/29/ | Document-Sc | Health Information | Unknown . | | | 2017 | anned | Services 2591 | | | | | | Bill Dyson Misha | | | | | | Mailcode: [id number] | | | | | | [facility] | | | | | | [place], [place] | | | | | | [address] | | | | | | [phone] | | | +--------+ + + + [...]
--- OUTSIDE RECORDS SUMMARY | ~2020-03-16 | XMS | Encounter Summary ---
Demographics + + + | Address | [address] | | | [place] [address] | + + + | Home Phone | | + + + | Preferred Language | Unknown | + + + | Marital Status | | + + + | Mu-Ism Affiliation | 1027 | + + + | Race | Unknown | + + + | Ethnic Group | Unknown | + + + Author + + + | Author | [facility] | | | and [place] | + + + | Organization | [facility] | | [...] Team Providers + +------+ + | Care Human Capital Consultant Name | Role | Phone | + +------+ + PCP | Unavailable | + +------+ + Encounter Details +--------+ + + + + | Date | Type | Department | Care Team | Description | +--------+ + + + + | 10/02/ | Hospital | [facility] | Handy Anderson P, | | | 1994 | Encounter | [facility] | DO [address] | | | | | GENERIC OP CONV DEPT | [address] [place], [place] | | | | | [address] | [address] | | | | | [place], [place] | | | | | | [address] | Sterling Davis MD | | | | | [phone] | [address] [facility] | | | | | | [address] [place], [place] | | | | | | [address] | | | | | | | [...]
--- OUTSIDE RECORDS SUMMARY | ~2020-03-16 | XMS | Encounter Summary ---
Demographics + + + | Address | [address] | | | [place] [address] | + + + | Home Phone | | + + + | Preferred Language | Unknown | + + + | Marital Status | | + + + | Episcopalian Affiliation | 1027 | + + + | Race | Unknown | + + + | Ethnic Group | Unknown | + + + Author + + + | Author | [facility] | | | and [place] | + + + | Organization | [facility] | | | [...] Team Providers + +------+ + | Care Floor Supervisor Name | Role | Phone | + +------+ + | Ronda Wade MD | PCP | | + +------+ + Encounter Details +--------+ + + + + | Date | Type | Department | Care Team | Description | +--------+ + + + + | 02/21/ | Hospital | [facility] GENER[facility] IP | Conversion | Diagnosis unknown | | 2017 | Encounter | CONVERSION DEP [address] | Transaction, | | | | | TAL [address] | Provider Unknown | | | | | [place] | [phone] | | | | | [address] | | | | | | [phone] | | | +--------+ + + + [...] | | 0 | | | | [id number] | as needed (pain). | | | [...]
--- OUTSIDE RECORDS SUMMARY | ~2020-03-16 | XMS | Encounter Summary ---
Demographics + + + | Address | [address] | | | [place] [address] | + + + | Home Phone [...] Team Providers + +------+ + | Care Soap Chipper Name | Role | Phone | + [...] Phone Call | | 2017 | | [facility] [address] | [address] | | | | | [facility] | [place], [place] | | | | | Health and Healing, | [address] | | | | | [place] [address] [facility] | [phone] | | | | | [place], [place] | | | | | | [address] | | | | | | [phone] | | | +--------+ + + + [...]
--- OUTSIDE RECORDS SUMMARY | ~2020-03-16 | XMS | Encounter Summary ---
Demographics + + + | Address | [address] | | | [place] [address] | + + + | Home Phone | | + + + | Preferred Language | Unknown | + + + | Marital Status | | + + + | Faith Affiliation | 1027 | + + + [...] Team Providers + +------+ + | Care Wheel Polisher Name | Role | Phone | + +------+ + PCP | Unavailable | + +------+ + Encounter Details +--------+ + + + + | Date | Type | Department | Care Team | Description | +--------+ + + + + | 07/27/ | Hospital | [facility] | [facility]ley | | | 1993 | Encounter | [facility] | | | | | | GENERIC OP CONV DEPT | | | | | | [address] | | | | | | [place] | | | | | | [address] | | | | | | [phone] | | | +--------+ + + + [...]
--- OUTSIDE RECORDS SUMMARY | ~2020-03-16 | XMS | Encounter Summary ---
Demographics + + + | Address | [address] | | | [place] [address] | + + + | Home Phone [...] Team Providers + +------+ + | Care Dead Mail Checker Name | Role | Phone | [...] [place] | | | | | [address] | [address] | | | | | [phone] | [phone] | | | | | | | [...] | | | | | performed at [facility] | | | | | | [facility]; [address] [facility]; | | | | | | [place] [address] | | | | + + + [...]
--- OUTSIDE RECORDS SUMMARY | ~2020-03-16 | XMS | Encounter Summary ---
Demographics + + + | Address | [address] | | | [place] [address] | + + + | Home Phone | | + + + | Preferred Language | Unknown | + + + | Marital Status | | + + + | Jainism Affiliation | 1027 | + + + [...] Providers + +------+ + | Care Software Clerk Name | Role | Phone | [...] [place] | | | | | [address] | [address] | | | | | [phone] | [phone] | | | | | | | [...] + + + + | Non- | 3.50 (L) | 3.70 - 5.10 | EXTERNAL | | | Red Blood | | M/uL | LAB | | | Cells | | | | | | Counted | | | | | + + + + + + | Hemoglobin | 9.1 (L) | 11.3 - 15.5 [...] | | | Basophils | performed at [facility], [address] | | LAB | | | | Donis Guzman, | | | | | | [place] [address] | | | | + + + [...]
--- OUTSIDE RECORDS SUMMARY | ~2020-03-16 | XMS | Clinical Summary ---
Demographics + + + | Address | [address] | | | [place] [address] | + + + | Home Phone [...] Team Providers + +------+ + | Care Tubular Riveter Name | Role | Phone | + +------+ + | Marixa Weber MD | PCP | | + +------+ + Source Comments LIZZJUAN is fully live on both [facility] and [facility] Allergies + + + + + [...] | e | | | bedtime. 2 oxmn=894 | | | 14 | | | [...] 12/29/ | DURS33 | | 3 - [id number]: Qty: | | Head | LIFESCIENCE | | 2017 | 91 / | | 1 on 2014 by Santos, | | | S | | | /[id number] | | MD Bart at [facility] | | | | | | 71 | | REV LOC | | | | | | | + +------+-------+ +--------+--------+--------+ | Mesh Contour [id number] | | N/A: | [employer] [place] | | | 04.503 | | Malleable Matrix Neuro - | | Head | | | | .083 / | | [id number]: Qty: 1 on | | | | | | / | | 2014 by Bart Graham | | | | | | | | at [facility] INPATIENT REV LOC | | | | | | | + +------+-------+ +--------+--------+--------+ | Screw 04mm Ti Self-Drill | | N/A: | [employer] [place] | | | 04.503 | | Matrix Neuro - | | Head | | | | .104.0 | | [id number]: Qty: 6 on | | | | | | 1 / / | | 2014 by Bart Graham, | | | | | | | | at [facility] REV LOC | | | | | [...] BLUE | BCBS | [phone] | | [phone] | [address] | PPO | | SHIELD | OUT OF | x | [phone] | [phone] | | | | STATE | | esent | | [place] | | | | | | | | [place] | | | | | | | | [address] | | + +--------+ +--------+ + +------+ [...] meredith | | | 1 (Home) | [address] | + +--------+ +--------+ + + Advance [...]
--- OUTSIDE RECORDS SUMMARY | ~2020-03-16 | XMS | Encounter Summary ---
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 | [phone] | | | | | floor [place], [place] | | | | | | [address] | | | | | | [phone] | | | +--------+ + + + [...]
--- OUTSIDE RECORDS SUMMARY | ~2020-03-16 | XMS | Encounter Summary ---
Demographics + + + | Address | [address] | | | [place] [address] | + + + | Home Phone [...] Team Providers + +------+ + | Care Superintendent Stations Name | Role | Phone | + [...] data | | 2015 | IP | [address] [facility] | [address] | completion) | | | | [address] | [place], [place] | | | | | [place], [place] | [address] | | | | | [address] | [phone] | | | | | | | [...]
--- OUTSIDE RECORDS SUMMARY | ~2020-03-16 | XMS | Encounter Summary ---
Demographics + + + | Address | [address] | | | [place] [address] | + + + | Home Phone | | + + + | Preferred Language | Unknown | + + + | Marital Status | | + + + | Mormon Affiliation | 1027 | + + + | Race | Unknown | + + + | Ethnic Group | Unknown | + + + Author + + + | Author | [facility] | | | and [place] | + + + | Organization | [facility] | | [...] Team Providers + +------+ + | Care Media Executive Name | Role | Phone | [...] Provider Unknown | | | | | [place] | | | | | | [address] | (Fax) | | | | | [phone] | | | +--------+ + + + [...] + | Juan Stahl Solange - 03/17/2019 5:55 AM PDT This is a non-reportable procedure | | without a radiologist report and isused for image storage only | + + documented in this encounter Visit Diagnoses + + | Diagnosis | + + | Pain Generalized pain | + + documented in this encounter"
--- OUTSIDE RECORDS SUMMARY | ~2020-03-16 | XMS | Encounter Summary ---
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 Address: [address] [place] [address]. Please call [phone] for questions o r concerns. 2. Follow up with your PCP to review your hospital course and medication changes. Please call to schedule this appointment. Future Appointments Date & Time Provider Department Dept Phone Center 11/09/2014 9:30 AM Bart Graham Neurosurgery at [facility] [phone] Neurosurgery Discharging Physician: JAIME HOWARD MD Attending [...] 14 | | | | bedtime. 2 [id number] | | | | | | | [...] issues Jaime Howard MD Neurosurgery Resident Pager #[phone] MEDICATIONS Current Facility-Administered Medications Medication acetaminophen (TYLENOL) [...] as described in the r esident note. OMaSachin ta MD - 7:35 PM PDT 7NSICU ATTENDING NEUROINTENSIVIST PROGRESS NOTE Team Pager: [phone] Attendin -------- EVENING NOTE -------- Date:10/25/2014 Critical [...] s/s of infection # Bipolar: Restart Wellbutrin, Tupelo, Duloxetine, Ziprasidone, and lorazepam (prn) # Lines: CVL (subclavian), matos, PIV - d/c matos Relevant Risks: This patient is currently at risk for the following: cerebral edema, hydroc ephalus, intracerebral hemorrhage and seizure; central line associated blood stream infectio n, DVT/Pulmonary embolism, ICU delirium and UTI. I spent 30 minutes actively involved in the care and management of this patient. Sachin Ward MD [facility] DEPARTMENT: [id number] ICU NEURO Place of Service:- Inpatient Date of Service: 10/25/2014 CSN: [id number] Suggested Modifier: None Suggested CPT: TO S3B MULTI SENSOR OPERATOR RELEVANT DATA: Last Vitals: BP 112/66 [...] charting, and discussion with treatment decision maker. [facility] DEPARTMENT: [id number] CRITICAL CARE Place of Service: Inpatient Date of Service: 10/25/2014 CSN: [id number] Suggested Level of Care: 80301 - CRITICAL CARE, 1ST HOUR EACH DAY [...] MRI -dexamethasone 4mg q6--slow taper ordered. -medication ACCESS CONTROL OFFICER: Geodon 160mg qHS, tramadol 50mg q6hr prn [...] for [place] - Diet: Regular diet - [facility] bowel protocol - MIVF: Normal saline w/ [...] ove assessment and plan. TORITO GONG, VALENTINA [facility] DEPARTMENT: [id number] ICU NEURO Place of Service:- Inpatient Date of Service: 10/25/2014 CSN: [id number] Suggested Modifier: None Suggested CPT: TO S3B MULTI SENSOR OPERATOR Kareen Martinez MD - 2014 6:49 [...] - 2014 6:19 PM PDT 7NSICU ATTENDING FIELD SUPPORT ENGINEER DAILY PROGRESS NOTE Team Pager: [phone] Attendin Date:2014 Critical Care Attending Physician: SACHIN [...] with the primary team and the [facility] ed. (Relevant data is listed at the bottom of this note). CC / Hx / Last 24hr: s/p 1) Suboccipital craniectomy and C1 laminectomy 2) Resection of fo urth ventricular mass; Tium mesh cranioplasty Patient Active Problem List Diagnosis Neoplasm of brain PMH: Bipolar, anxiety, headaches , GERD, asthma Home meds: Ziprasidone, Tramadol, Topiramate, Lorazepam, Tupelo, Lansoprazole, Dilaudid, Celecoxib, g abapentin, duloxetine, bupropion, [...] opioids: continue gabapentin # Bipolar: Restart Wellbutrin, Tupelo, Duloxetine, Ziprasidone, and lorazepam (prn) # Lines: arterial line, CVL (subclavian), matos, PIV Relevant Risks: This patient is currently at risk for the following: cerebral edema, hy drocephalus, intracerebral hemorrhage and seizure; central line associated blood stream infe ction, DVT/Pulmonary embolism, ICU delirium and UTI. I spent 65 minutes actively involved in the care and management of this patient. Sachin Ward MD [facility] DEPARTMENT: [id number] ICU NEURO Place of Service:- Inpatient Date of Service: erEDICAL RECORD NUMBER [id number] CSN: [id number] Suggested Modifier: None Suggested CPT: TO S3B MULTI SENSOR OPERATOR RELEVANT DATA: Last Vitals: BP 139/80 [...] PROSPER | [address] | [place], [place] | | | LESLIE POINT OF CARE | [address] | [address] | | | TESTS | | | [...] PROSPER | [address] | [place], [place] | | | MALINA NELSON OF BEL | [address] | [address] | | | TESTS | | | [...] | + + + + + | [facility] | [address] | [place] [address] | | | SERVICES, CORE | KAYLEN [...] | | | LABORATORY | | | IRANIAN | | | SERVICES, | | | [...] the MDRD equation recommended by the | [facility] | | National Kidney Disease Education Program. [...] | [facility] | [address] | [place] [address] | | | GABRIELLE MIRELES | KAYLEN [...] MARQUAM | [address] | [place], [place] | | | LESLIE POINT OF CARE | [address] | [address] | | | TESTS | | | [...] | MYRIAM CHENG | [address] | [place], [place] | | | MALINA NELSON OF CARE | [address] | [address] | | | TESTS | | | [...] MARQUAM | [address] | [place], [place] | | | LESLIE POINT OF CARE | [address] | [address] | | | TESTS | | | [...] | + + + + + | [facility] | [address] | [place] [address] | | | SERVICES, CORE | KAYLEN [...] | | | LABORATORY | | | IRANIAN | | | SERVICES, | | | [...] | [facility] | [address] | [place] [address] | | | SERVICES, CORE | KAYLEN [...] CHENG | [address] | [place], [place] | | | MALINA NELSON OF CARE | [address] | [address] | | | TESTS | | | [...] MARQUAM | [address] | [place], [place] | | | MALINA ENLSON OF CARE | [address] | [address] | | | TESTS | | | [...] MARQUAM | [address] | [place], [place] | | | MALINA NELSON OF CARE | [address] | [address] | | | TESTS | | | [...] + + + | MYRIAM CHENG | [address] | [place], [place] | | | MALINA ENLSON OF CARE | [address] | [address] | | | TESTS | | | | + + + + + OPERATION RECORD (10/26/2014 9:22 AM PDT) + + | Transcriptions | + + | Bart Graham MD - 2014 10:30 PM PDT Date of Service: 2014 Attending | | Surgeon: Bart Graham MD Seat Joiner Chainstitch(s): Brady Conroy MD, | | PhD. Preoperative [...] she was placed in the Bhagat head charger and flipped into | | the prone [...] curette with Kerrison punches. We used a Warner dissector to | | carefully dissect the [...] were removed. She was removed from the [place] head charger | | and flipped into the supine [...] 2014 | | 18:04:22DT: 2014 22:30:30Job #: [id number] | + + CAPILLARY BLOOD GLUCOSE (NO [...] - PROSPER | [address] | [place], [place] | | | MALINA NELSON OF CARE | [facility] | [address] | | | TESTS | | | [...] CHENG | [address] | [place], [place] | | | MALINA NELSON OF CARE | [address] | [address] | | | TESTS | | | [...] [facility] | [address] | [place] [address] | | | SERVICES, CORE | PARK [...] (H) | 60 - 99 mg/dL | [facility] | | | PLASMA | | | [...] | | | LABORATORY | | | IRANIAN | | | SERVICES, | | | [...] | + + + + + | [facility] | [address] | [place] [address] | | | CHI, GABRIELLE | KAYLEN [...] MARQUAM | [address] | [place], [place] | | | HILL, POINT OF CARE | [address] | [address] | | | TESTS | | | [...] MARQUAM | [address] | [place], [place] | | | MALINA NELSON OF BEL | [facility] | [address] | | | TESTS | | | [...] CHENG | [address] | [place], [place] | | | LESLIE POINT OF CARE | [address] | [address] | | | TESTS | | | [...] MARQUAM | [address] | [place], [place] | | | HILL, POINT OF CARE | [address] | [address] | | | TESTS | | | [...] | + + + + + | [facility] | [address] | [place] [address] | | | SERVICES, SPECIAL | PARK [...] | + + + + + | [facility] | [address] | [place] [address] | | | SERVICES, CORE | KAYLEN [...] | | | LABORATORY | | | IRANIAN | | | SERVICES, | | | [...] the MDRD equation recommended by the | [facility] | | National Kidney Disease Education Program. [...] | + + + + + | [facility] | [address] | [place] [address] | | | CHI, GABRIELLE | KAYLEN [...] | | | | | | contrast. [id number] | | | | | | reformatted [...] + + + | X-RAY | EXAM: [place] CHEST 1 VIEW | | | | [...] [facility] | [address] | [place] [address] | | | SERVICES, CORE | PARK [...] | | | LABORATORY | | | IRANIAN | | | SERVICES, | | | [...] | [facility] | [address] | [place] [address] | | | GABRIELLE MIRELES | KAYLEN [...] | + + + + + | [facility] | [address] | [place] [address] | | | SERVICES, CORE | KAYLEN [...] [facility] | [address] | [place] [address] | | | SERVICES, CORE | PARK [...] CENTER LABORATORY | [address] | [place] [address] | | | GABRIELLE MIRELES | KAYLEN [...] MARQUAM | [address] | [place], [place] | | | LESLIE POINT OF CARE | [address] | [address] | | | TESTS | | | [...] - PROSPER | [address] | [place], [place] | | | MALINA NELSON OF CARE | [address] | [address] | | | TESTS | | | [...] CHENG | [address] | [place], [place] | | | MALINA NELSON OF CARE | [address] | [address] | | | TESTS | | | [...] MARQUAM | [address] | [place], [place] | | | MALINA NELSON OF CARE | [address] | [address] | | | TESTS | | | [...] MARQUAM | [address] | [place], [place] | | | MALINA NELSON OF BEL | [facility] | [address] | | | TESTS | | | [...] CHENG | [address] | [place], [place] | | | LESLIE POINT OF CARE | [address] | [address] | | | TESTS | | | [...] MARLIZAM | [address] | [place], [place] | | | MALINA NELSON OF CARE | [address] | [address] | | | TESTS | | | [...] CHENG | [address] | [place], [place] | | | LESLIE POINT OF CARE | [address] | [address] | | | TESTS | | | [...] mass | | | | | | [id number] x 12 mm in | | | [...] [facility] | [address] | [place] [address] | | | SERVICES, | [address] [...] | + + + + + | [facility] | [address] | [place] [address] | | | SERVICES, | [address] | | | | TRANSFUSION MEDICINE | | | | + + + + + INTRAOPERATIVE NEURO MONITORING (2014) + + + | Narrative | Performed At | + + + | Patient Name: Mendoza Villegas Date of : 1970 Medical | | | Record Number: [id number] Date of Test: 2014 Place of | | | Service: IP Intra Op (23) [id number] INTRAOPERATIVE NEURO | | | MONITORING History: [...] of | | | Neurology Suggested CPT: 82651 - IOM Remote x 3 hr(s) 82742 - | | | Short Latency EP's Upper AND Lower extremities 05616 - Central Motor | | | EP's Upper AND Lower extremities 17042 - EMG Cranial Bilateral - IOM | | | 81311 - Neuromuscular Junction Test Suggested Diagnosis: 237.5 [...] | + + + + + | [facility] | [address] | [place] [address] | | | PATHOLOGY | [address] [...] | | | NEEDED, Starting [facility] 10/25/14 at | | | | | | | 1344, Until [place] 10/28/14 at 1929, | | | | [...] | | | NEEDED, Starting [facility] 10/25/14 | | PM PDT | [...]
--- OUTSIDE RECORDS SUMMARY | ~2020-03-16 | XMS | Encounter Summary ---
Demographics + + + | Address | [address] | | | [place] [address] | + + + | Home Phone | | + + + | Preferred Language | Unknown | + + + | Marital Status | | + + + | Yarsani Affiliation | 1027 | + + + [...] Team Providers + +------+ + | Care Equipment Operator Name | Role | Phone | + +------+ + PCP | Unavailable | + +------+ + Encounter Details +--------+ + + + + | Date | Type | Department | Care Team | Description | +--------+ + + + + | 09/05/ | Hospital | [facility] | Handy Anderson P, | | | 1994 | Encounter | [facility] | DO [address] | | | | | GENERIC OP CONV DEPT | RD [place], [place] | | | | | [address] | [id number] | | | | | [place], [place] | | | | | | [address] | | | | | | [phone] | | | +--------+ + + + [...]
--- OUTSIDE RECORDS SUMMARY | ~2020-03-16 | XMS | Encounter Summary ---
Demographics + + + | Address | [address] | | | [place] [address] | + + + | Home Phone [...] Team Providers + +------+ + | Care Youth Development Professional Name | Role | Phone | [...] [facility] [address] | ,PhD [address] [facility] | Recommendation | | | | [facility] for | [address] | | | | | [facility], | [place], [place] | | | | | [facility] | [address] | | | | | [place], [place] | [phone] | | | | | [address] | | | | | | [phone] | | | +--------+ + + + [...]
--- OUTSIDE RECORDS SUMMARY | ~2020-03-16 | XMS | Encounter Summary ---
Demographics + + + | Address | [address] | | | [place] [address] | + + + | Home Phone [...] Providers + +------+ + | Care Laundry Operator Wash Room Name | Role | Phone | + +------+ + PCP | Unavailable | + +------+ + Encounter Details +--------+ + + + + | Date | Type | Department | Care Team | Description | +--------+ + + + + | 10/24/ | Hospital | [facility] | Handy Anderson P, | | | 1994 - | Encounter | [facility] | DO [address] | | | | | GENERIC OP CONV DEPT | [address] [place], [place] | | | 10/26/ | | [address] | [address] | | | 1993 | | [place], [place] | | | | | | [address] | Veronika Mcclellan Priscilla, | | | | | [phone] | MD Adalgisa BARTLETT | | | | | | [address] [place], [place] | | | | | | [address] | | | | | | | [...]
--- OUTSIDE RECORDS SUMMARY | ~2020-03-16 | XMS | Encounter Summary ---
Demographics + + + | Address | [address] | | | [place] [address] | + + + | Home Phone [...] Team Providers + +------+ + | Care Operations Support Specialist Name | Role | Phone | [...] Karis | | | | | | [place], [place] | | | | | | [address] | | | +--------+ + + + [...]
--- OUTSIDE RECORDS SUMMARY | ~2020-03-16 | XMS | Encounter Summary ---
Demographics + + + | Address | [address] | | | [place] [address] | + + + | Home Phone | | + + + | Preferred Language | Unknown | + + + | Marital Status | | + + + | Religion Affiliation | 1027 | + + + | Race | Unknown | + + + | Ethnic Group | Unknown | + + + Author + + + | Author | [facility] | | | and [place] | + + + | Organization | [facility] | | | [...] Team Providers + +------+ + | Care Space Studies Faculty Member Name | Role | Phone | + +------+ + PCP | Unavailable | + +------+ + Encounter Details +--------+ + + + + | Date | Type | Department | Care Team | Description | +--------+ + + + + | 10/07/ | Hospital | [facility] | ZZ, DEFAULT | | | 1991 - | Encounter | [facility] | | | | | | GENERIC OP CONV DEPT | | | | 10/11/ | | [address] | | | | 1990 | | [place] | | | | | | [address] | | | | | | [phone] | | | +--------+ + + + [...]
--- OUTSIDE RECORDS SUMMARY | ~2020-03-16 | XMS | Encounter Summary ---
Demographics + + + | Address | [address] | | | [place] [address] | + + + | Home Phone [...] Providers + +------+ + | Care Medical Scientist Name | Role | Phone | + [...] Rd | | | | | | [place], [place] | | | | | | [address] | | | +--------+ + + + [...]
--- OUTSIDE RECORDS SUMMARY | ~2020-03-16 | XMS | Encounter Summary ---
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
--- OUTSIDE RECORDS SUMMARY | ~2020-03-16 | XMS | Encounter Summary ---
Demographics + + + | Address | [address] | | | [place] [address] | + + + | Home Phone [...] Providers + +------+ + | Care Concrete Puddler Name | Role | Phone | + [...] Rd | | | | | | [place], [place] | | | | | | [address] | | | +--------+ + + + [...]
--- OUTSIDE RECORDS SUMMARY | ~2020-03-16 | XMS | Encounter Summary ---
Demographics + + + | Address | [address] | | | [place] [address] | + + + | Home Phone [...] Team Providers + +------+ + | Care Ice Carver Name | Role | Phone | + +------+ + PCP | Unavailable | + +------+ + Encounter Details +--------+ + + + + | Date | Type | Department | Care Team | Description | +--------+ + + + + | 05/10/ | Hospital | [facility] | Ernestina Strange, | | | 1993 | Encounter | [facility] | EDI PROGRAMMER ANALYST [address] | | | | | GENERIC OP CONV DEPT | [place], [place] | | | | | [address] | [address] | | | | | [place], [place] | [phone] | | | | | [address] | | | | | | [phone] | | | +--------+ + + + [...]
--- OUTSIDE RECORDS SUMMARY | ~2020-03-16 | XMS | Encounter Summary ---
Demographics + + + | Address | [address] | | | [place] [address] | + + + | Home Phone [...] Team Providers + +------+ + | Care Creamery Worker Name | Role | Phone | [...] [place] | | | | | [address] | [address] | | | | | [phone] | [phone] | | | | | | | [...] | Testing performed at | | | [facility] anchor.travel; [address] [facility]; [place] [address] CULTURE | | | NO GROWTH | | | Testing performed at [facility], [address] [facility] [address] | | | [place] [address] | | | | | + + + + +---------+ + + | Performing | Address | City/State/Zipcode | Phone Number | | Organization | | | | + +---------+ + + | EXTERNAL LAB | | | | + +---------+ + + documented in this encounter Visit Diagnoses Not on filedocumented in this encounter"
--- OUTSIDE RECORDS SUMMARY | ~2020-03-16 | XMS | Encounter Summary ---
Demographics + + + | Address | [address] | | | [place] [address] | + + + | Home Phone [...] Team Providers + +------+ + | Care Reliability Technologist Name | Role | Phone | [...] [address] | | | | | [facility] | [place], [place] | | | | | [facility] Healing, | [address] | | | | | [place] [address] [facility] | [phone] | | | | | [place], [place] | | | | | | [address] | | | | | | [phone] | | | +--------+ + + + [...]
--- OUTSIDE RECORDS SUMMARY | ~2020-03-16 | XMS | Encounter Summary ---
Demographics + + + | Address | [address] | | | [place] [address] | + + + | Home Phone [...] Team Providers + +------+ + | Care Compressor Mechanic Name | Role | Phone | [...] Provider Unknown | | | | | [address] | [phone] | | | | | [phone] | | | +--------+ + + + [...] LAB | | | | Health; [address]; | | | | | | [place] [address] | | | | + + + [...]
--- OUTSIDE RECORDS SUMMARY | ~2020-03-16 | XMS | Encounter Summary ---
Demographics + + + | Address | [address] | | | [place] [address] | + + + | Home Phone [...] Team Providers + +------+ + | Care Tankroom Worker Name | Role | Phone | + +------+ + PCP | Unavailable | + +------+ + Encounter Details +--------+ + + + + | Date | Type | Department | Care Team | Description | +--------+ + + + + | 10/05/ | Hospital | [facility] | Handy Anderson P, | | | 1993 | Encounter | [facility] | DO [address] | | | | | GENERIC OP CONV DEPT | RD [place], [place] | | | | | [address] | [id number] | | | | | [place], [place] | | | | | | [address] | | | | | | [phone] | | | +--------+ + + + [...]
--- OUTSIDE RECORDS SUMMARY | ~2020-03-16 | XMS | Encounter Summary ---
Demographics + + + | Address | [address] | | | [place] [address] | + + + | Home Phone [...] Team Providers + +------+ + | Care Tie Knitter Helper Name | Role | Phone | + +------+ + PCP | Unavailable | + +------+ + Encounter Details +--------+ + + + + | Date | Type | Department | Care Team | Description | +--------+ + + + + | 07/19/ | Emergency | [facility] | John Nieves | | | 1993 | | [facility] | [address] | | | | | CENTER [address] [place], [place] | | | | | [address] | [address] | | | | | [place], [place] | | | | | | [address] | | | | | | [phone] | | | +--------+ + + + [...]
--- OUTSIDE RECORDS SUMMARY | ~2020-03-16 | XMS | Encounter Summary ---
Demographics + + + | Address | [address] | | | [place] [address] | + + + | Home Phone [...] + +------+ + | Care Director Of Supply Chain Name | Role | Phone [...] Rd | | | | | | [place], [place] | | | | | | [address] | | | +--------+ + + + [...]
[~2020-03-16 00:11] MED LIST changes: +EPIPEN 2-P0.3 MG/0.3 IM; +PREDNISONE20 MG PO
--- OUTSIDE RECORDS SUMMARY | 2020-03-16 00:14 | XMS ---
PreManage Notification: MAGALIS BLACKMAN Security Hydro Pneumatic Tester Events No recent Security Events currently on file CRITERIA MET - [facility] [place] - Has Care Guidelines - PDMP CARE [facility] 10/18/2018-Current PHONE: [phone] Guidelines Source: [facility] Guidelines Date: 05/22/2019 Care Coordination: Mental health services provided by [employer].\T\nbsp; Please contact [employer] with mental health concerns.\T\nbsp; Nelly/Dennis Silveira: [phone]\T\ nbsp; Inessa: [phone]. Care History Medical/Surgical 08/10/2019 [facility] I left voice mail informing patient of practical use of walk in clinic if open for non life threatening medical care.\T\nbsp; Patient has scheduled appointment with Dr. Watson on 08/24/2019.\T\nbsp; 06/07/2019 [facility] - PATIENT HAS A PCP APT WITH DR DELGADO ON 06/07/19. 10/18/2018 [facility] - Patient is currently established with [facility]. If patient is seen in the ED during business hours. Please contact [facility] at [facility]. Care Recommendation: This patient has had 5 or more Emergency Department visits in the last 12 months.\T\nbsp; Patient requires education on the scope and purpose of the ED as an acute care provider not a Primary Care Provider and should not be utilized for chronic conditions.\T\nbsp; These are guidelines and the provider should exercise clinical judgment when providing care. Raji VISIT COUNT (12 MO.) [address] [address] [facility] TOTAL 7 NOTE: Visits indicate total known visits. ED/UCC VISIT TRACKING (12 MO.) 03/16/2020 00:11 [facility] [place] TYPE: Emergency COMPLAINT: - LT KNEE PAIN 08/09/2019 19:17 [facility] [place] TYPE: Emergency COMPLAINT: - ALLERGIC REACTION TO FOOD DIAGNOSES: - Nicotine dependence, unspecified, uncomplicated - Allergy status to narcotic agent status - Essential (primary) hypertension - Allergy to other foods - Latex allergy status - Other nonmedicinal substance allergy status - Allergy status to other drugs, medicaments and biological sub - Sleep apnea, unspecified - Bipolar disorder, unspecified - Other test specialist (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 - Other adverse food reactions, not elsewhere classified, initi - Allergy status to analgesic agent status - Shortness of breath - Unspecified asthma, uncomplicated 06/06/2019 20:05 [facility] [place] TYPE: Emergency COMPLAINT: - KNEE PAIN DIAGNOSES: - Allergy status to narcotic agent status - Other test specialist (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 - Sleep apnea, unspecified - Bipolar disorder, unspecified - Unspecified asthma, uncomplicated - Essential (primary) hypertension - Allergy status to analgesic agent status - Allergy status to other drugs, medicaments and biological sub - Latex allergy status - Pain in [...] of abdominal wall, initial encounter - Other prison (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 - Latex allergy status 05/24/2019 20:31 [facility] [place] TYPE: Emergency COMPLAINT: - ABDOMINAL SWELLING AND BLEEDING DIAGNOSES: - Unspecified abdominal pain - Other prison (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 - Essential (primary) hypertension - Bipolar disorder, unspecified - Unspecified asthma, uncomplicated - Allergy status to analgesic agent status - Allergy status to narcotic agent status - Sleep apnea, unspecified - Latex allergy status - Other nonmedicinal substance allergy status - Allergy status to other drugs, medicaments and biological sub - Anemia, unspecified - Nontraumatic hematoma of soft tissue 05/21/2019 19:47 [facility] [place] TYPE: Emergency DIAGNOSES: - ABD PAIN 05/20/2019 22:32 [facility] [place] TYPE: Emergency COMPLAINT: - ABD PAIN DIAGNOSES: - Other test specialist (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 - Essential (primary) hypertension - Allergy status to analgesic agent status - Nicotine dependence, unspecified, uncomplicated - Left lower quadrant pain - Latex allergy status - Exposure to other specified factors, initial encounter - Allergy status to narcotic agent status - Strain of muscle, fascia and tendon of abdomen, initial encou - Other nonmedicinal substance allergy status - Allergy status to other drugs, medicaments and biological sub INPATIENT VISIT TRACKING (12 MO.) No inpatient visits to display in this time frame [email or web address]
[2020-03-16] MEDS ORDERED: CYCLOBENZAPRINE5 MG PO (01:01)
== END 2020-03-16 02:51 | disposition home or self-care (01) ==
LOC: ED 00:11
DX: S83.92XA Sprain of unspecified site of left knee, initial encounter (principal); I10 Essential (primary) hypertension; F41.9 Anxiety disorder, unspecified; J45.909 Unspecified asthma, uncomplicated; F17.200 Nicotine dependence, unspecified, uncomplicated; Z91.048 Other nonmedicinal substance allergy status; Z91.040 Latex allergy status; Z79.899 Other long term (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; X58.XXXA Exposure to other specified factors, initial encounter
CPT/HCPCS: 73560; 80048; 85025; 85379; 99283-25

== ENCOUNTER 2021-03-24 17:44 | Emergency (ER) | payer BC ==
[~2021-03-24] VITALS: Ht 152.4 cm; Wt 111.1 kg
[~2021-03-24 17:44] MED LIST changes: +CYCLOBENZAPRINE5 MG PO
--- OUTSIDE RECORDS SUMMARY | 2021-03-24 17:52 | XMS ---
PreManage Notification: MAGALIS BLACKMAN Security Field Foreman Events No recent Security Events currently on file CRITERIA MET - [facility] - Has Care Guidelines [facility] Internal Medicine 10/18/2018-Current PHONE: [phone] Care Guidelines exist for the following facilities: [facility] ( 05/22/2019 ) Care History Medical/Surgical 03/18/2020 [facility] Patient stated that she called Walk In Clinic prior to ED visit and was told the Clinic was at capacity.\T\nbsp; She stated that she is trying to schedule with Dr. Jackson. 08/10/2019 [facility] I left voice mail informing patient of practical use of walk in clinic if open for non life threatening medical care.\T\nbsp; Patient has scheduled appointment with Dr. Watson on 08/24/2019.\T\nbsp; 06/07/2019 [facility] - PATIENT HAS A PCP APT WITH DR DELGADO ON 06/07/19. E.D. VISIT COUNT (12 MO.) 1 LUIS Marx TOTAL 1 NOTE: Visits indicate total known visits. ED/UCC VISIT TRACKING (12 MO.) 03/24/2021 17:45 LUIS Fernandez [place] TYPE: Emergency COMPLAINT: - BLOOD IN STOOL INPATIENT VISIT TRACKING (12 MO.) No inpatient visits to display in this time frame [email or web address]
[2021-03-24] MEDS ORDERED: HYDROCODON-ACE1 EA10 PO (21:28)
== END 2021-03-24 21:45 | disposition home or self-care (01) ==
LOC: ED 17:44
DX: N20.0 Calculus of kidney (principal); J45.909 Unspecified asthma, uncomplicated; I10 Essential (primary) hypertension; G47.30 Sleep apnea, unspecified; F17.200 Nicotine dependence, unspecified, uncomplicated; Z88.8 Allergy status to other drugs, medicaments and biological substances; Z88.5 Allergy status to narcotic agent; Z88.6 Allergy status to analgesic agent; Z91.040 Latex allergy status; Z91.048 Other nonmedicinal substance allergy status; Z79.899 Other long term (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
CPT/HCPCS: 74177; 80053; 81001; 83690; 85025; 96375; 99284-25; J1170; J2405; Q9967

== ENCOUNTER 2021-04-10 15:32 | Emergency (ER) | payer BC ==
[~2021-04-10] VITALS: Ht 152.4 cm; Wt 113.4 kg
[~2021-04-10 15:32] MED LIST changes: +HYDROCODON-ACE1 EA10 PO
--- OUTSIDE RECORDS SUMMARY | 2021-04-10 20:13 | XMS ---
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 No recent Security Events currently on file CRITERIA MET - [facility] - 2 Visits in 30 Days - [facility] - Has Care Guidelines CARE PROVIDERS SANYD [facility] Internal Medicine 03/25/2021-Current PHONE: [phone] Care Guidelines exist for the following facilities: [facility] ( 05/22/2019 ) Care History Medical/Surgical 03/18/2020 [facility] Patient stated that she called [facility] prior to ED visit and was told the Clinic was at capacity.\T\nbsp; She stated that she is trying to schedule with Dr. Jackson. 08/10/2019 [facility] I left voice mail informing patient of practical use of walk in clinic if open for non life threatening medical care.\T\nbsp; Patient has scheduled appointment with Dr. Watson on 08/24/2019.\T\nbsp; 06/07/2019 [facility] - PATIENT HAS A PCP APT WITH DR DELGADO ON 06/07/19. E.D. VISIT COUNT (12 MO.) [address] [facility] TOTAL 2 NOTE: Visits indicate total known visits. ED/UCC VISIT TRACKING (12 MO.) 04/10/2021 15:32 [facility] [place] TYPE: Emergency COMPLAINT: - FLANK PAIN 03/24/2021 17:45 [facility] [place] TYPE: Emergency COMPLAINT: - BLOOD IN STOOL DIAGNOSES: - Sleep apnea, unspecified - Other nonmedicinal substance allergy status - Latex allergy status - Nicotine dependence, unspecified, uncomplicated - Unspecified asthma, uncomplicated - Allergy status to other drugs, medicaments and biological substances - Unspecified abdominal pain - Allergy status to narcotic agent - Essential (primary) hypertension - Calculus of kidney - Allergy status to analgesic agent - 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
[2021-04-10] MEDS ORDERED: CEPHALEXIN500 MG PO (21:37)
[2021-04-10] MEDS ORDERED: HYDROCODON-ACE1 EA10 PO (21:37)
== END 2021-04-10 22:54 | disposition home or self-care (01) ==
LOC: ED 15:32
DX: R10.9 Unspecified abdominal pain (principal); I10 Essential (primary) hypertension; J45.909 Unspecified asthma, uncomplicated; G47.30 Sleep apnea, unspecified; M79.7 Fibromyalgia; F17.200 Nicotine dependence, unspecified, uncomplicated; Z88.5 Allergy status to narcotic agent; Z88.8 Allergy status to other drugs, medicaments and biological substances; Z91.040 Latex allergy status; Z91.018 Allergy to other foods; Z91.048 Other nonmedicinal substance allergy status; Z79.899 Other long term (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
CPT/HCPCS: 74176; 80053; 81001; 85007; 85025; 87088; 96365; 96375; 99284-25; J0696; J2270; J2405; J7030

== ENCOUNTER 2021-06-27 20:35 | Emergency (ER) | payer BC ==
[~2021-06-27] VITALS: Ht 152.4 cm; Wt 114.2 kg
[~2021-06-27 20:35] MED LIST changes: +CEPHALEXIN500 MG PO; +FLOMAX0.4 MG PO; +HYDROXYZINE HCL50 MG PO; +K-TAB ER20 MEQ PO; +MULTI VITAMIN1 EACH PO; +TRULICITY1.5 MG/0.5 SUB-Q; +[UNRECOGNIZED DRUG - OTHER] PO
--- OUTSIDE RECORDS SUMMARY | 2021-06-27 20:42 | XMS ---
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 Delgado to go to ED for pain that may be associated with kidney stones. Patient has follow up with Dr. Delgado on 04/16/2021 at 17:30 Additional care guidelines exist for the following facilities: [facility] ( 05/22/2019 ) Care History Medical/Surgical 03/18/2020 [facility] Patient stated that she called Walk In Clinic prior to ED visit and was told the Clinic was at capacity.\T\nbsp; She stated that she is trying to schedule with Dr. Jackson. 08/10/2019 [facility] I left voice mail informing patient of practical use of walk in clinic if open for non life threatening medical care.\T\nbsp; Patient has scheduled appointment with Dr. Watson on 08/24/2019.\T\nbsp; 06/07/2019 [facility] - PATIENT HAS A PCP APT WITH DR DELGADO ON 06/07/19. [place] VISIT COUNT (12 MO.) 3 [facility] TOTAL 3 NOTE: Visits indicate total known visits. ED/UCC VISIT TRACKING (12 MO.) 06/27/2021 20:36 [facility] [place] TYPE: Emergency COMPLAINT: - FLANK PAIN 04/10/2021 15:32 [facility] [place] TYPE: Emergency COMPLAINT: - FLANK PAIN DIAGNOSES: - Unspecified asthma, uncomplicated - Allergy to other foods - Calculus of kidney - Other nonmedicinal substance allergy status - Fibromyalgia - Allergy status to narcotic agent - Allergy status to other drugs, medicaments and biological substances - Sleep apnea, unspecified - Latex allergy status - Unspecified abdominal pain - Essential (primary) hypertension - Nicotine dependence, unspecified, uncomplicated - 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
== END 2021-06-28 00:20 | disposition home or self-care (01) ==
LOC: ED 20:35
DX: N20.2 Calculus of kidney with calculus of ureter (principal); I10 Essential (primary) hypertension; J45.909 Unspecified asthma, uncomplicated; G47.30 Sleep apnea, unspecified; F17.200 Nicotine dependence, unspecified, uncomplicated; Z88.8 Allergy status to other drugs, medicaments and biological substances; Z91.048 Other nonmedicinal substance allergy status; Z91.040 Latex allergy status; Z88.6 Allergy status to analgesic agent; Z88.5 Allergy status to narcotic agent; Z79.899 Other long term (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; Z91.018 Allergy to other foods
CPT/HCPCS: 74176; 80053; 81001; 85025; 96374; 96375; 99284-25; J1170; J2405

== ENCOUNTER 2022-09-10 15:24 | Emergency (ER) | payer BC ==
[~2022-09-10] VITALS: Ht 152.4 cm; Wt 110.7 kg
--- OUTSIDE RECORDS SUMMARY | 2022-09-10 15:27 | XMS ---
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 Delgado to go to ED for pain that may be associated with kidney stones. Patient has follow up with Dr. Delgado on 04/16/2021 at 17:30 Additional care guidelines exist for the following facilities: [facility] ( 05/22/2019 ) Care History Medical/Surgical 07/01/2021 [facility] Patient has appointment with Dr. Delgado on 07/12/2021 06/30/2021 [facility] - Patient is currently established with [facility]. If patient is seen in the ED during business hours. Please contact CHWs at [facility]. Care Recommendation: This patient has had 5 or more Emergency Department visits in the last 12 months. Patient requires education on the scope and purpose of the ED as an acute care provider not a Primary Care Provider and should not be utilized for chronic conditions. These are guidelines and the provider should exercise clinical judgment when providing care. 03/18/2020 [facility] Patient stated that she called Walk In Clinic prior to ED visit and was told the Clinic was at capacity.\T\nbs; She stated that she is trying to schedule with Dr. Adams. [place] VISIT COUNT (12 MO.) 1 [facility] NOTE: Visits indicate total known visits. ED/UCC VISIT TRACKING (12 MO.) 09/10/2022 15:24 [facility] [place] TYPE: Emergency COMPLAINT: - BACK PAIN INPATIENT VISIT TRACKING (12 MO.) No inpatient visits to display in this time frame [id number]
[2022-09-10] MEDS ORDERED: CYCLOBENZAPRINE10 MG PO (19:21)
== END 2022-09-10 19:52 | disposition home or self-care (01) ==
LOC: ED 15:24
DX: M54.50 Low back pain, unspecified (principal); J45.909 Unspecified asthma, uncomplicated; I10 Essential (primary) hypertension; G47.30 Sleep apnea, unspecified; M79.7 Fibromyalgia; F17.200 Nicotine dependence, unspecified, uncomplicated; Z91.048 Other nonmedicinal substance allergy status; Z91.040 Latex allergy status; Z88.8 Allergy status to other drugs, medicaments and biological substances; Z88.5 Allergy status to narcotic agent; Z88.6 Allergy status to analgesic agent; Z91.018 Allergy to other foods; Z79.899 Other long term (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
CPT/HCPCS: 99283

== ENCOUNTER 2024-07-13 02:54 | Inpatient (IN) | payer BC, OTHER ==
[~2024-07-13] VITALS: Ht 152.4 cm; Wt 91.0 kg
[2024-07-13] VITALS (10 sets, daily range): BP systolic 80–129; BP diastolic 48–65
[~2024-07-13 02:54] MED LIST changes: +AMOXICILLIN875 MG PO; +AZITHROMYCIN250 MG PO; +BUPROPION XL150 MG PO; +CEPHALEXIN500 M1 PO; +CYCLOBENZAPRINE10 MG PO; +FARXIGA5 MG PO; +LOSARTAN POTASS50 MG PO; +NAPROSYN500 MG PO; +NYSTATIN1000000 UN TOP; +OMEPRAZOLE20 MG PO; +PIOGLITAZONE HC15 MG PO; +ROSUVASTATIN CA20 MG PO; +TRULICITY3 MG/0.5 M SUB-Q; +WELLBUTRIN SR100 MG
[2024-07-13 04:35] LABS: BASOPHILS 0.7 % (0-2); HEMATOCRIT 37.9 % (35.0-50.0); HEMOGLOBIN 12.3 g/dL (12.0-18.0); LYMPHOCYTES 22.1 % (24-44); MCH 32.3 (27-36); MCHC 32.5 g/dl (30-36); MCV 99.3 fl (81-99); MONOCYTES 5.1 % (0-12); NEUTROPHILS 70.1 % (39-80); PLATELET COUNT 578 K/uL (140-440); RBC 3.82 M/ul (4.3-5.7)
[2024-07-13 04:46] LABS: INR 0.97 (0.80-1.30); PROTIME 12.5 Sec (11.2-14.2)
[2024-07-13 04:57] LABS: ALBUMIN 2.4 g/dL (3.4-5.0); ALBUMIN/GLOBULIN RATIO 0.63 (1.1-2.4); ANION GAP 15.3 (7-21); BILIRUBIN, TOTAL 0.6 ng/dL (0.2-1.0); BUN/CREATININE RATIO 11.71 (6.0-28.6); CALCIUM 9.8 mg/dL (8.5-10.1); CREATININE, SERUM 1.28 mg/dL (0.55-1.02); MAGNESIUM 1.6 mg/dL (1.8-2.4); POTASSIUM 4.3 mmol/L (3.5-5.1); PROTEIN, TOTAL 6.2 g/dL (6.4-8.2)
[2024-07-13] MEDS ORDERED: KETOROLAC TROMETHAMINE 15 MG/ML VIAL IV ONE (05:15)
[2024-07-13 05:30] LABS: BILIRUBIN, URINE NEGATIVE (negative); BLOOD/HGB, URINE LARGE (Negative); KETONE, URINE TRACE (Negative); LEUK ESTERASE, URINE TRACE (negative); NITRITE, URINE NEGATIVE (negative)
[2024-07-13 05:40] LABS: BACTERIA, URINE NONE SEEN /hpf (negative); CASTS, URINE HYALINE 1+ \\lpf; COLLECTION TYPE, URINE CLEAN CATCH; CRYSTALS, URINE NONE SEEN (0-1+); EPITHELIAL CELLS, URINE 0 /lpf (0-1+); RED BLOOD CELLS, URINE >50 /hpf (0-5); REFLEX CULTURE, URINE Yes (No)
[2024-07-13] MEDS ORDERED: SODIUM CHLORIDE 0.9% 1,000 ML IV ONE (09:15)
[2024-07-13 09:19] LABS: BASOPHILS 0.8 % (0-2); EOSINOPHILS 1.9 % (0-6); HEMATOCRIT 30.1 % (35.0-50.0); HEMOGLOBIN 9.6 g/dL (12.0-18.0); LYMPHOCYTES 21.3 % (24-44); MCH 32.1 (27-36); MCHC 31.9 g/dl (30-36); MCV 100.7 fl (81-99); MONOCYTES 4.4 % (0-12); NEUTROPHILS 71.6 % (39-80); PLATELET COUNT 509 K/uL (140-440); RBC 2.99 M/ul (4.3-5.7); RDW 21.9 (10.5-15.0)
[2024-07-13 09:51] LABS: ABO O; ANTIBODY SCREEN NEGATIVE; RH POSITIVE
[2024-07-13] MEDS ORDERED: HYDROmorphone HCL 1 MG/ML SYR IV PRN ×2 (10:15→12:30)
[2024-07-13] MEDS ORDERED: PANTOPRAZOLE SODIUM 40 MG/10 ML VIAL IV ONE ×2 (10:15→20:30)
[2024-07-13] MEDS ORDERED: PROCHLORPERAZINE EDISYLATE 10 MG/2 ML VIAL IV PRN (11:00)
[2024-07-13] MEDS ORDERED: IBLOOD GLUCOSE TEST STRIP 1 EA TEST XX PRN (11:00)
[2024-07-13] MEDS ORDERED: SODIUM CHLORIDE 0.9% 1,000 ML IV SCH (11:00)
[2024-07-13] MEDS ORDERED: ondansetron HCL 4 MG/2 ML VIAL IV PRN (11:00)
[2024-07-13] MEDS ORDERED: DEXTROSE 50% 50 ML SYR IV PRN ×2 (11:00)
[2024-07-13] MEDS ORDERED: GLUCAGON,HUMAN RECOMBINANT 1 MG/ML VIAL SUB-Q PRN (11:00)
[2024-07-13] MEDS ORDERED: DEXTROSE 5% 1,000 ML IV PRN (11:00)
--- NOTE | 2024-07-13 11:16 | EKG ---
[facility] [address] [place] [address] Signed Normal sinus rhythm Low voltage QRS Borderline ECG When compared with ECG of 23-FEB-2024 10:46, No significant change was found Confirmed by Lawrence Talamantes MD () on 07/13/2024 11:16:21 AM Electronically Signed By: LAWRENCE TALAMANTES MD 07/13/24 1116 PATIENT NAME: DALILA BLACKMANHAZEL KYMBERLY Electrocardiogram DATE OF : 72 PHYSICIAN: LAWRENCE TALAMANTES MD REPORT #: [id number] REPORT IS CONFIDENTIAL AND NOT TO BE RELEASED WITHOUT AUTHORIZATION
[2024-07-13] MEDS ORDERED: PHARMACY RENAL DOSE ADJUSTMENT 1 DOSE MISC PO SCH (12:00)
--- NOTE | 2024-07-13 12:00 | NUR ---
PT ARRIVES TO FLOOR VIA STRETCHER. REPORT RECEIVED FROM EDNA VILLEGAS. PT ASSISTED TO HOSPITAL BED AT THIS TIME.
--- NOTE | 2024-07-13 12:25 | NUR ---
MD INFORMED PT ON THE FLOOR, REQUESTING TO SEE IF WANTING TO DO MG REPLACEMENT FOR LAB RESULTS THIS MORNING. ALSO REQUESTING SOMETHING FOR PAIN - ER ORDER WERE DISCONTINUED. PT C/O (R) KNEE PAIN, ICE APPLIED BUT NOT HELPING, PT STATES MAKING IT WORSE. AWAITING ORDERS FROM MD AT THIS TIME.
[2024-07-13] MEDS ORDERED: SEVOFLURANE 250 ML BTL INH ONE (12:27)
[2024-07-13] MEDS ORDERED: LANTUS SOL100 UNIT/1 SUB-Q (13:08)
[2024-07-13] MEDS ORDERED: NAPROXEN500 MG PO (13:08)
[2024-07-13] MEDS ORDERED: FARXIGA10 MG PO (13:09)
--- NOTE | 2024-07-13 13:23 | NUR ---
UR CLINICAL REVIEW: SAT[place], MEETS INPT FOR UPPER GI BLEED GUIDELINE [facility] INPT 07/13/2024 @ 1058 ORDER MATCHES REG AUTH PENDING, WILL SEND CLINICALS IF REQUESTED. DC TO HOME WHEN STABLE. 07/15/2024
--- NOTE | 2024-07-13 13:25 | NUR ---
ADMISSION ASSESSMENT COMPLETE. PT INITIALLY TEARFUL WHEN SHE ARRIVED FROM THE ER. PT REPORTS PAIN IN HER R KNEE FROM "WALKING LAST NIGHT", PT ALSO REPORTS SHE IS AFRAID OF SURGERY AND BEING IN THE HOSPITAL, SHE IS CONCERNED SHE WILL NOT LEAVE. THERAPEUTIC COMMUNICATION PROVIDED. PT ASSISTED TO USE THE FRACTURED BED PAIN, PASSES 275ML OF LIQUID, MAROON COLORED BM. ALEX-CARE PROVIDED. PT BOWEL TONES ARE ACTIVE THROUGHOUT, PT REPORTS TENDERNESS TO PALPATION THROUGHOUT ABDOMEN. PT REPORTS CHRONIC NUMBNESS/TINGLING IN BLE, GENERALIZED EDEMA IN BILAT ANKLES. SMALL SCABS NOTED TO TOP OF BILAT FEET, ALLEVYN APPLIED. REDNESS NOTED UNDER BILAT BREASTS. PT REPOSITIONS SELF TO LAY ON HER R SIDE. VALE FROM PHARMACY ARRIVES TO SEE PT AND BLANE FROM CASTING ROOM HELPER ARRIVES TO SEE PT. CALL LIGHT IN REACH, BED IN LOWEST POSITION, NO OTHER NEEDS AT THIS TIME.
--- NOTE | 2024-07-13 13:29 | NUR ---
MED REC COMPLETE
[2024-07-13] MEDS ORDERED: IBLOOD GLUCOSE TEST STRIP 1 EA TEST VI SCH (14:00)
[2024-07-13] MEDS ORDERED: Insulin Regular, Human 100 UNIT/ML ML SUB-Q SCH (14:00)
--- NOTE | 2024-07-13 14:05 | NUR ---
ALERT AND ORIENTED IN BED. LIVES IN A MOBILE HOME WITH HER SPOUSE, MEHUL. STATES SHE HAS A RAMP TO GET INTO HER HOME. SHE HAS A WALKER, CANE AND WHEELCHAIR AT HOME. STATES SHE DRIVES OCCASIONALLY, BUT HAS ISSUES WITH FEELING HER FEET SO HER HELPS DRIVE HER. SHE DENIES ISSUES PAYING UTILTITES, GETTING FOOD AND MEDICATIONS. STATES SHE CAN NOT THINK OF ANYTHING SHE NEEDS ASSISTANCE WITH AT THE MOMENT. PLANS TO RETURN HOME WHEN READY.
[2024-07-13 14:37] LABS: BASOPHILS 0.8 % (0-2); EOSINOPHILS 0.9 % (0-6); HEMOGLOBIN 9.5 g/dL (12.0-18.0); LYMPHOCYTES 25.5 % (24-44); MCH 32.1 (27-36); MCHC 31.5 g/dl (30-36); MCV 101.8 fl (81-99); MONOCYTES 4.5 % (0-12); NEUTROPHILS 68.3 % (39-80); PLATELET COUNT 492 K/uL (140-440); RBC 2.95 M/ul (4.3-5.7); RDW 21.9 (10.5-15.0)
--- NOTE | 2024-07-13 14:45 | NUR ---
PRN NAUSEA MEDICATION ADMINISTERED, SEE MAR. PT ASSISTED TO USE BED KO AND HAS SMALL AMOUNT OF MAROON COLORED CLOTS AT THIS TIME. PT REPORTS NO OTHER NEEDS. , MEHUL, IS PRESENT IN THE ROOM AT BEDSIDE. CALL LIGHT IN REACH.
--- NOTE | 2024-07-13 15:20 | NUR ---
PRN PAIN MEDICATION ADMINISTERED, SEE MAR. PT REQUESTING BED KO USE AT THIS TIME, HAS SMALL, LIQUID MAROON COLORED STOOL WITH CLOTS NOTED. PT IS REQUESTING A VISIT FROM VALE IN PHARMACY THEY ATTEND THE SAME QUAKER. VALE MADE AWARE AND STATES HE WILL COME DOWN. NO OTHER NEEDS AT THIS TIME, CALL LIGHT IN REACH.
[2024-07-13] MEDS ORDERED: NICOTINE 14 MG/24 HR 1 EA TDSY TD SCH (16:05)
--- NOTE | 2024-07-13 16:11 | NUR ---
MD GIVES VERBAL ORDER FOR NICOTINE PATCH, INPUT.
--- NOTE | 2024-07-13 16:50 | NUR ---
DR OLSON IN TO ASSESS PT. DR OLSON PLANS TO TAKE PT FOR EGD NOW. PRE-PROCEDURE CHECKLIST COMPLETED, RINGS REMOVED AND PLACED IN LOCKBOX, FLUID AND STRAIGHT TUBING HUNG. PT VERBALIZES UNDERSTANDING WITH DR OLSON. NO OTHER NEEDS AT THIS TIME.
--- NOTE | 2024-07-13 17:27 | NUR ---
SURGERY TAKES PT OFF THE FLOOR AT THIS TIME.
[2024-07-13] MEDS ORDERED: propofoL 200 MG/20 ML VIAL ONE (17:29)
[2024-07-13] MEDS ORDERED: fentaNYL citrate 100 MCG/2 ML VIAL ONE (17:29)
[2024-07-13] MEDS ORDERED: ROCURONIUM BROMIDE 50 MG/5 ML SYR ONE (17:29)
[2024-07-13] MEDS ORDERED: LIDOCAINE HCL 2% 5 ML SDV ONE (17:29)
[2024-07-13] MEDS ORDERED: ondansetron HCL 4 MG/2 ML VIAL ONE (17:29)
[2024-07-13] MEDS ORDERED: SUCCINYLCHOLINE IN 0.9% NACL 200 MG/10 ML SYRINGE ONE (17:29)
--- NOTE | 2024-07-13 17:32 | NUR ---
PT NEEDED USE THE RESTROOM. PUT HER ON A BED KO AND PT HAD A BM AND VOIDED AND IT WAS CHARTED PT DIDNT NEED ANYTHING ELSE CALL LIGHT IS WITHIN REACH.
[2024-07-13] MEDS ORDERED: ACETAMINOPHEN 1,000 MG/100 ML VIAL ONE (17:53)
--- NOTE | 2024-07-13 18:20 | NUR ---
REPORT RECEIVED FROM BRANDON Huffman RN. PT TRANSFERRED BACK TO BED VIA DRAWSHEET. PT CURRENTLY IN TEARS, REPORTS SHE HAS A SORE THROAT. EDNA MELGAR TAKES PT VITALS. CPOX APPLIED AND AT BEDSIDE, SCDs REAPPLIED. PT PRESENT IN ROOM THROUGHOUT. ORDERS PRN THROAT SPRAY FOR PT. NO OTHER NEEDS AT THIS TIME, CALL LIGHT IN REACH.
--- NOTE | 2024-07-13 18:25 | NUR ---
PATIENT RETURNED TO UNIT POST PROCEDURE. TRANSFERED TO UNIT BED VIA SLIDE SHEET. VSS. PRIMARY NURSE IN ROOM WITH PATIENT.
--- NOTE | 2024-07-13 18:34 | NUR ---
07/13/24 183 Kayla Hernandez 1752 PT ARRIVED TO PACU ON 6L VIA MASK, PT COUGHING OFF AND ON. RN REORIENTING PT TO PACU. PT OPEN HER EYES AND LOOKING AROUND. VSS. 175 PT REACHING FOR HER FACE AND O2 REMOVED. PT RPEORTS 5/10 PAIN IN HER THROAT. COLOR DEVELOPER AWARE. 180 PAIN MEDICATION GIVEN BY COLOR DEVELOPER. 1810 MD AND HOSPITALIST AT BEDSIDE AND PLAN OF CARE DISCUSSED. PT SLIGHTLY TEARFUL BUT NO OTHER CONCERNS. 1820 PT TRANSFERED BACK TO HER ROOM WITH AT BEDSIDE. MD UPDATED . THREE RNS AT BEDSIDE AND TRANSFERED PT TO BED FROM [facility]. PT RPEORTS PAIN IN HER THROAT AND IS TEARFUL. ALL QUESTIONS ANSWERED AND VSS.
[2024-07-13] MEDS ORDERED: phenoL 177 ML SPRAY MT PRN (18:45)
--- NOTE | 2024-07-13 18:45 | NUR ---
BOTH IVs FLUSH WNL, PT RESTARTED ON IVF AT THIS TIME. MEDICATION ADMINISTERED, SEE MAR. PT ASSISTED TO USE BEDPAN AND HAS SMALL, LIQUID BURGANDY STOOL. ALEX-CARE PROVIDED, FRESH CHUX PAD PLACED. REMAINS IN ROOM AT THIS TIME. NO OTHER NEEDS, CALL LIGHT IN REACH.
--- NOTE | 2024-07-13 19:22 | NUR ---
CALL LIGHT ANSWERED. PT NEEDED TO USE BATHROOM. FOOD AND BEVERAGE ANALYST ASSISTED PT ONTO BED KO.PT INSTRUCTED TO USE CALL LIGHT WHEN DONE. FOOD AND BEVERAGE ANALYST PROVIDED PRIVACY. CALL LIGHT ANSWERED AND PT ASSISTED OFF OF BED KO. PT HAD SMALL BLOODY BM. RN NOTIFED. PT ALSO VOIDED. PT CHUCKS PAD AND DRAW SHEET CHANGED. PT STATES NO FURTHER NEEDS AT THIS TIME. CALL LIGHT WITHIN REACH.
--- NOTE | 2024-07-13 19:31 | NUR ---
Received report from Reji RN's. Pt resting in bed, spouse at bedside. Denies needs at this time. Call light within reach.
--- NOTE | 2024-07-13 19:53 | NUR ---
CALL LIGHT ANSWERED. PT NEEDED TO USE BATHROOM. EMPLOYEE BENEFITS SPECIALIST ASSISTED PT ONTO BEDPAN. PT INSTRUCTED TO USE CALL LIGHT WHEN FINISHED. CALL LIGHT ANSWERED. PT ASSISTED OFF BEDPAN. CHUCKS PAD CHANGED. PT STATES NO FURTHER NEEDS AT THIS TIME. CALL LIGHT WITHIN REACH.
[2024-07-13 20:06] LABS: LYMPHOCYTES 21.5 % (24-44); RDW 22.6 (10.5-15.0)
[2024-07-13 20:08] LABS: BASOPHILS 0.7 % (0-2); EOSINOPHILS 0.6 % (0-6); HEMATOCRIT 28.4 % (35.0-50.0); HEMOGLOBIN 9.3 g/dL (12.0-18.0); MCH 33.3 (27-36); MCHC 32.9 g/dl (30-36); MCV 101.3 fl (81-99); MONOCYTES 5.1 % (0-12); NEUTROPHILS 72.1 % (39-80); PLATELET COUNT 515 K/uL (140-440)
--- NOTE | 2024-07-13 20:32 | NUR ---
PT ASSISTED OFF OF BEDPAN. PT HAD A VOID AND A SMALL, DARK RED LIQUID STOOL. PT STATES NO OTHER NEEDS AT THIS TIME. CALL LIGHT IN REACH, FAMILY IN ROOM.
--- NOTE | 2024-07-13 20:45 | NUR ---
Pt resting in bed w/ spouse at bedside. Pt is irritable and tearful w/ staff. Reports abd and lower back pain, medicated w/ PRN Dilaudid per EMAR. Pt using bedpan for liquid bloody BM's. LSC dim. CPOX in place. HRR. BTA, abd tender to palpation. Pt reports passing flatus w/ BM's. Mild nausea after pain med administration. RH IV infusing NS @ 125. LFA SL WNL. SCD's in place to BLE. pt has drsgs in place to bilat lower shins. Bright red rash to right breast. BG 137, no coverage. Covid swab obtained per order. NPO at this time.
[2024-07-13] MEDS ORDERED: PANTOPRAZOLE SODIUM 40 MG/10 ML VIAL IV SCH ×2 (21:00)
--- NOTE | 2024-07-13 21:40 | NUR ---
COLLISION WORKER OBTAINED VITALS AND OUTPUT. RN NOTIFED OF LOW B/P. COLLISION WORKER THEN TOOK A MANUAL B/P. ROBERT BP READ 90/52. RN NOTIFED. PT STATES NO FURTHER NEEDS AT THIS TIME. CALL LIGHT WITHIN REACH.
--- NOTE | 2024-07-13 22:00 | NUR ---
Report given to EDNA Vallejo in CCU.
--- NOTE | 2024-07-13 22:01 | NUR ---
THIS RN AND VICE PRESIDENT QUALITY ASSURANCE TAYA COLLECTED pt BELONGINGS AND pt TRANSFERRED VIA HOSPITAL BED FROM MS ROOM #114 TO CCU #126 AT THIS TIME, pt HAS SILVER STACKABLE RING WITH CLEAR COLORED STONE AND GOLD COLORED BAND IN pt SAMPLE CONTAINER AND THROAT SPRAY-BOTH NOW IN NEW LOCK BOX. NEW PRIMARY RN HANK IN ROOM ORINETING pt TO POC, CALL LIGHT IN REACH.
--- NOTE | 2024-07-13 22:15 | NUR ---
PATIENT AAOX4. REPORTS TOLERABLE PAIN 5/10 AFTER RECEIVING PRN MEDS; PAIN IN ABD AND CHRONIC PAIN. IV FLUIDS CONTINUED PER ORDER; IV SITES WNL X2. ABD IS SOFT, TENDER, WITH ACTIVE BOWEL SOUNDS. PATIENT DENIED NAUSEA OR GI UPSET. PATIENT HAS BEEN HAVING LOOSE BLACK STOOLS. REDNESS NOTED ON CHEST AND UNDER PATIENT'S BREAST; PATIENT REPORTS HISTORY OF INCREASED IRRITATION WITH ANTIFUNGAL POWDERS IN THE PAST. BARRIER CREAM APPLIED FOR NOW. SCDs IN PLACE. PATIENT'S IN THE ROOM. BEDDING PROVIDED. NO OTHER NEEDS AT THIS TIME. CALL LIGHT IN REACH.
--- NOTE | 2024-07-13 23:00 | NUR ---
PATIENT HAD SMALL LIQUID BLACK STOOL VIS BEDPAN AND SMALL VOID. PATIENT ABLE TO ASSIST ROLLING FROM SIDE TO SIDE BUT REPORTS INABILITY TO GET UP OUT OF BED EASILY DUE TO PAIN. PATIENT HAS BEEN WC BOUND FOR LAST SEVERAL MONTHS.
--- NOTE | 2024-07-13 23:40 | NUR ---
PATIENT HAD ANOTHER VERY SMALL LIQUID BM; CONTINUES TO BE BLACK IN COLOR. PATIENT OTHERWISE DENIES ANY CONCERNS AT THIS TIME. ASSISTED TO USE BEDPAN AND CLEAN. ASSISTED TO POSITION FOR COMFORT IN THE BED. CALL LIGHT IN REACH.
[2024-07-14] VITALS (24 sets, daily range): BP systolic 70–170; BP diastolic 41–118
--- NOTE | 2024-07-14 00:18 | NUR ---
PATIENT REPORTED PAIN 9/10 IN HER RIGHT LEG AND IN HER BACK. PATIENT REPORTS THIS IS CHRONIC PAIN AND REQUEST PRN PAIN MEDS. ASSISTED PATIENT TO REPOSITION FOR COMFORT. PRN PAIN MEDS GIVEN PER ORDER.
--- NOTE | 2024-07-14 00:58 | NUR ---
PATIENT USED BEDPAN TO VOID. PATIENT ABLE TO MOVE HERSELF IN BED. NO OTHER NEEDS AT THIS TIME. CALL LIGHT IN REACH.
[2024-07-14 01:16] LABS: BASOPHILS 0.7 % (0-2); EOSINOPHILS 0.8 % (0-6); HEMATOCRIT 26.2 % (35.0-50.0); HEMOGLOBIN 8.3 g/dL (12.0-18.0); LYMPHOCYTES 27.3 % (24-44); MCH 31.7 (27-36); MCHC 31.5 g/dl (30-36); MCV 100.4 fl (81-99); MONOCYTES 5.4 % (0-12); NEUTROPHILS 65.8 % (39-80); PLATELET COUNT 512 K/uL (140-440); RDW 22.2 (10.5-15.0)
--- NOTE | 2024-07-14 02:30 | NUR ---
PATIENT UPDATE PROVIDED TO
--- NOTE | 2024-07-14 03:24 | NUR ---
PATIENT REQUEST PRN PAIN MEDS FOR 8/10 PAIN IN HER BACK AND RIGHT LEG. PATIENT THEN PLACED ON BEDPAN TO HAVE BM; SMALL LIQUID BLACK STOOL NOTED. PATIENT ASSISTED TO TURN AND CLEANED.
--- NOTE | 2024-07-14 04:24 | NUR ---
PATIENT REQUESTING TO BE REPOSITIONED AND CORDS REORGANIZED. PATIENT IS MORE EMOTIONAL THAN SHE HAD BEEN PRIOR AND IS CRYING TO HER WHO IS SLEEPING ON THE COUCH. ENCOURAGED PATIENT TO REST. CALL LIGHT IN REACH.
--- NOTE | 2024-07-14 04:30 | NUR ---
PATIENT COMPLAINING OF BEING UNCOMFORTABLE. WET WASH CLOTH PROVIDED. PATIENT DENIED PAIN OR GI UPSET. BP SOFT ON LEFT UPPER ARM; PATIENT LAYING ON RIGHT SIDE. REPOSITIONED TO RIGHT FOREARM. BP REMAINS SOFT.
[2024-07-14 05:21] LABS: ALBUMIN 1.7 g/dL (3.4-5.0); ALBUMIN/GLOBULIN RATIO 0.61 (1.1-2.4); ANION GAP 17.4 (7-21); BILIRUBIN, TOTAL 0.4 ng/dL (0.2-1.0); BUN/CREATININE RATIO 25.38 (6.0-28.6); CALCIUM 8.2 mg/dL (8.5-10.1); CREATININE, SERUM 1.3 mg/dL (0.55-1.02); MAGNESIUM 1.4 mg/dL (1.8-2.4); PHOSPHORUS, INORGANIC 3.4 mg/dL (2.5-4.9); POTASSIUM 5.4 mmol/L (3.5-5.1); PROTEIN, TOTAL 4.5 g/dL (6.4-8.2)
--- NOTE | 2024-07-14 05:36 | NUR ---
PATIENT UPDATE PROVIDED TO ; INCLUDING PATIENT'S BOWEL MOVEMENTS, TACHYCARDIA, AND HYPOTENSION.
[2024-07-14] MEDS ORDERED: LACTATED RINGER'S 1,000 ML IV ONE (05:45)
[2024-07-14 05:51] LABS: BASOPHILS 0.6 % (0-2); EOSINOPHILS 0.9 % (0-6); HEMATOCRIT 19.4 % (35.0-50.0); HEMOGLOBIN 6.1 g/dL (12.0-18.0); LYMPHOCYTES 31.4 % (24-44); MCH 32.5 (27-36); MCHC 31.5 g/dl (30-36); MCV 103.1 fl (81-99); MONOCYTES 5.5 % (0-12); NEUTROPHILS 61.6 % (39-80); PLATELET COUNT 453 K/uL (140-440); RBC 1.89 M/ul (4.3-5.7); RDW 22.6 (10.5-15.0)
--- NOTE | 2024-07-14 05:56 | NUR ---
IV FLUID BOLUS INFUSING. IV SITE WNL. PATIENT RESTING IN BED. HR 90'S. PATIENT LESS ANXIOUS. PATIENT HAD ANOTHER MEDIUM BLOODY STOOL, THIS TIME LARGER AND MORE CLOTS NOTED THAN PREVIOUS.
--- NOTE | 2024-07-14 06:05 | NUR ---
PATIENT HAD LARGE BM; MORE RED IN COLOR THAN PRIORS AND MORE CLOTS NOTED. PATIENT CONTINUES TO BE HYPOTENSIVE. PATIENT IS ALERT AND ORIENTED. IV FLUID BOLUS INFUSING.
[2024-07-14 06:31] LABS: IS CROSSMATCH COMPATIBLE
--- NOTE | 2024-07-14 06:37 | NUR ---
PATIENT RECEIVING FIRST UNIT PRBC; NO SIGN OF REACTION AFTER 15 MINS. BP IMPROVED; SYSTOLIC >100
[2024-07-14 06:49] LABS: IS CROSSMATCH COMPATIBLE
[2024-07-14] MEDS ORDERED: MAGNESIUM SULFATE 2 GM/50 ML BAG IV SCH (07:00)
[2024-07-14] MEDS ORDERED: PANTOPRAZOLE SODIUM 40 MG/10 ML VIAL IV SCH (07:00)
--- NOTE | 2024-07-14 07:34 | NUR ---
PATIENT IV SITE INFILTRATED; SITE DC WNL. UPDATED . DISCUSSED CENTRAL LINE VS PICC LINE. MD WILL CONTACT SURGERY.
--- NOTE | 2024-07-14 07:51 | OR ---
[facility] [address], [place] [address] Signed DATE OF OPERATION: 07/13/2024 SURGEON: Oli Kennedy MD PREOPERATIVE DIAGNOSES: 1. Gastrointestinal bleed (maroon-colored stool). 2. Anemia. 3. Gastric lap band in 2010. POSTOPERATIVE DIAGNOSES: 1. Eroded gastric lap band. 2. Antral gastric ulcer x1. 3. Duodenal ulcers x2 in pyloric bulb. PROCEDURES: EGD without biopsy. ESTIMATED BLOOD LOSS: None. INDICATIONS: Magalis is a 53-year-old obese diabetic female I helped in 2020 with a colonoscopy. She was complaining of various aches and pains and was on ibuprofen, naproxen and Tylenol. She was also having chest pain and then shortness of breath. She finally came to emergency room for evaluation. She told me she is not supposed to take any NSAIDs because of her diabetes. She also had laparoscopic gastric band gastric placed back in 2010. She said it really never worked to help her really lose much weight. In the emergency room, she was worked up for cardiac and pulmonary issues that was all fine. She was actually going to be discharged to home, but she passed a large amount of maroon-colored blood and stool in the toilet. She was feeling a little lightheaded at that time. Her hemoglobin had been 12.3, it dropped to 9.6 and this repeat is 9.5. Her mean cell volume is 101, but she quit drinking about five years ago. She had been admitted to the hospitalist service for her GI bleed. She has been stable down on the Med/Surg floor. I have been asked to see her as a local general surgeon on-call. I met with her just a little bit ago and I reviewed all her records and talked to her at length. She reminded me about the colonoscopy in 2020. I went back and reviewed that as well. We decided we would do upper endoscopy this evening and check for any potential bleeding source in her stomach. I explained to her the nature of an upper endoscopy. We reviewed the risks including, but not limited to gas bloating, crampy abdominal pain, bleeding, perforation requiring surgery, and missed diagnosis. She also Electronically Signed By: OLI KENNEDY MD 07/14/24 0751 PATIENT NAME: MAGALIS BLACKMAN OPERATIVE REPORT DATE OF : 72 REPORT #: [id number] PHYSICIAN: OLI KENNEDY MD PCP: ERIC PIERRE MD REPORT IS CONFIDENTIAL AND NOT TO BE RELEASED WITHOUT AUTHORIZATION [facility] [address], [place] [address] Signed understands the need for monitored anesthesia care given her poor functional status, her very full round, heavy face, neck, chest, and abdomen along with her complex medical issues and her acute situation. She had expressed understanding and wished to proceed. DESCRIPTION OF PROCEDURE: Magalis was taken into the endoscopy suite and placed in a supine semi-recumbent position. She was placed under general endotracheal tube anesthesia. The adult gastroscope was introduced and advanced under direct visualization of camera without difficulty. The esophagus and proximal stomach did not show much initially. We could see quite a bit of clotted blood in the antrum of the stomach. On closer evaluation, she has a nonbleeding ulcer in the gastric antrum. We passed into the pyloric bulb and as we went and she has an ulcer off to the side, it was nonbleeding as well. Then as we went past the pyloric and just as we went from the pyloric bulb and the duodenum, she had another ulcer on the side. There was a large clot. The duodenum itself was unremarkable. We went back and retroflexed the scope and we can see that her gastric band has eroded through her stomach. That appears to be chronic. After this, we withdrew the scope up through the area of the GE junction, which overall was compliant without stricture. No troubles in her esophagus whatsoever. The gas had been suctioned out and the gastroscope removed. Magalis the tolerated procedure quite well. RECOMMENDATIONS: Magalis is going to be returned to her room under the hospital service. She will be maintained on a proton pump inhibitor twice a day. I will be given the hospitalist to call her shortly. Oli Kennedy MD ALB/MODL /[id number] Copies: ~ Electronically Signed By: OLI KENNEDY MD 07/14/24 0751 PATIENT NAME: MAGALIS BLACKMAN OPERATIVE REPORT DATE OF : 72 REPORT #: [id number] PHYSICIAN: OLI KENNEDY MD PCP: ERIC PIERRE MD REPORT IS CONFIDENTIAL AND NOT TO BE RELEASED WITHOUT AUTHORIZATION
--- NOTE | 2024-07-14 07:51 | CONS ---
[facility] [address], [place] [address] Signed DATE OF CONSULTATION: 07/13/2024 CHIEF COMPLAINT: Abdominal pain. HISTORY OF PRESENT ILLNESS: Magalis is a 53-year-old obese diabetic female, who for about two days was having abdominal pain, chest pain and shortness of breath. Apparently, she has been using some ibuprofen, naproxen and Tylenol. She came to emergency room for evaluation. Her cardiac and chest workup were negative. She was actually getting ready to be discharged to home. She had gone to the bathroom and apparently passed some maroon-colored stool. She was feeling a little lightheaded and dizzy. They found that her hemoglobin had gone from 12.3 down to about 9.6, the next one was 9.5. Our hospitalist service was asked to admit her with respect to the above. I was asked to see her as a general surgeon on-call for possible upper endoscopy. We know she has had a previous laparoscopic gastric band. I helped with a colonoscopy in 2020. She had constipation and diarrhea that had been worsening. She has intermittent rectal bleeding associated with hemorrhoids. She had a polyp taken out by Dr. Car in 2016. We found just minimal external hemorrhoids and some minimal internal hemorrhoids associated skin tags. In the meantime, she has been admitted to the medical floor. She has passed several maroon-colored bowel movements. Otherwise, she has been hemodynamically stable. She has received IV fluids and has been n.p.o. PAST MEDICAL HISTORY: Asthma, hypertension, anxiety, bipolar, lumbago, degenerative disk disease, obstructive sleep apnea, fibromyalgia, type 1 diabetes, hemorrhoids, colonic polyps, and obesity. PAST SURGICAL HISTORY: Includes a cholecystectomy, hysterectomy, x2, laparoscopic gastric band in 2010, tonsillectomy, adenoidectomy, brain tumor in 2014, left knee surgery, colonoscopy in [address] Olson and in [address] Car. She has had an abdominoplasty and surgical removal right kidney stones. SOCIAL HISTORY: She does smoke. She quit drinking about five years ago[address] Dr. Eric Pierre is her primary care provider. Andrea is her at [phone]. She prefers [facility]. FAMILY HISTORY: None. REVIEW OF SYSTEMS: She had 10 systems reviewed and she reminded of the colonoscopy in 2020. Electronically Signed By: OLI OLSON MD 07/14/24 0751 PATIENT NAME: MAGALIS BLACKMAN CONSULTATION DATE OF : 72 REPORT #: [id number] PHYSICIAN: OLI OLSON MD PCP: ERIC PIERRE MD REPORT IS CONFIDENTIAL AND NOT TO BE RELEASED WITHOUT AUTHORIZATION [facility] [address], [place] [address] Signed ALLERGIES: She is not supposed to take NSAIDs given her diabetes. Also, zinc, codeine, oxycodone, latex, tape, metformin, atorvastatin, and black pepper. MEDICATIONS: Sumatriptan, albuterol, , multivitamin, Trulicity, gabapentin, rosuvastatin, losartan. PHYSICAL EXAMINATION: VITAL SIGNS: Blood pressure is 90/59, heart rate 96, respiratory rate 18, temperature is 97.3. She is 5 feet tall at 95 kg with a body mass index of 41. GENERAL: Magalis is a 53-year-old obese female in the right lateral decubitus position in her hospital bed. The nurses are with her. She was on the bed garcia. She is in no acute distress. She is alert, awake, and interactive. LUNGS: Clear to auscultation bilaterally. HEART: Regular rate and rhythm without murmurs. ABDOMEN: Quite obese, but soft. RECTAL: Not repeated. LABORATORY DATA: Her white blood count 14.1, hemoglobin is 9.5 it was 12.3. Mean cell volume is 101, neutrophils 68, platelets 492. BUN is 15, creatinine 1.28. Her rhythm strip was normal sinus rhythm in the ER. Her troponin was negative. Urine specific gravity was up. She had some blood, protein, red blood cells, white blood cells in the leukocyte esterase, but no bacteria in the urine. Her urine culture is pending. Albumin is low at 2.4. BNP is low up at 815. INR is 0.97. Magnesium is 1.6. Alkaline phosphatase a little up at 182, but the AST and ALT were negative. RADIOGRAPHIC STUDIES: A chest x-ray is unremarkable. Abdominal x-ray shows a laparoscopic gastric band. CT scan of the chest was negative. ASSESSMENT AND PLAN: Magalis is a 53-year-old obese diabetic female, who was using some ibuprofen, naproxen and Tylenol for some abdominal pain the last couple of days. She is having chest pain, shortness of breath, but she has passed some maroon-colored stool. I have been asked to see her as a general surgeon on-call for consideration of upper endoscopy this evening. I have reviewed this with Magalis in detail. She is very familiar with endoscopy. There is risk including, but not limited to gas bloating, crampy abdominal pain, bleeding, perforation requiring surgery, and missed diagnosis. We also reviewed the need for monitored anesthesia care given her health history along with the acute situation. She has expressed understanding and would like to proceed. Electronically Signed By: OLI OLSON MD 07/14/24 0751 PATIENT NAME: MAGALIS BLACKMAN CONSULTATION DATE OF : 72 REPORT #: [id number] PHYSICIAN: OLI OLSON MD PCP: ERIC PIERRE MD REPORT IS CONFIDENTIAL AND NOT TO BE RELEASED WITHOUT AUTHORIZATION [address] [address] Signed Oli Olson MD ALB/MODL /[id number] cc: Eric Pierre MD Patient chart Oli Olson MD Copies: ERIC PIERRE DMD, ANDREW L MD ~ Electronically Signed By: OLI OLSON MD 07/14/24 0751 PATIENT NAME: MAGALIS BLACKMAN CONSULTATION DATE OF : 72 REPORT #: [id number] PHYSICIAN: OLI OLSON MD PCP: ERIC PIERRE MD REPORT IS CONFIDENTIAL AND NOT TO BE RELEASED WITHOUT AUTHORIZATION
--- NOTE | 2024-07-14 08:30 | NUR ---
UNIT #1 PRBC INFUSION COMPLETED IN RIGHT WRIST IV SITE. POST INFUSION VS STABLE. PT ALERT AND ORIENTED LAYING IN BED WITH HOB SLIGHTLY ELEVATED. SKIN PALE AND COOL. LUNG SOUNDS DIM THROUGHOUT, SP02 STABLE ON ROOM AIR AT THIS TIME, DENIES SOB. MILD PAIN REPORTED, CHRONIC IN NATURE, RATES ANXIETY 8/10. SMALL GONZALO STOOL NOTED UNDER PT, CLEANED AND FRESH PAD PLACED WITH FULL LINEN CHANGE. UNABLE TO ASSESS URINE OUTPUT INC IN BED WITH STOOL. PT EDUCATED ON NEED FOR CENTRAL LINE AND BENEFITS OF IMPROVED IV ACCESS. PT AGREES WITH PLAN TO INSERT AT BEDSIDE WITH DR. OLSON. SUPPLIES GATHERED AND ROOM PREPPED IN ANTICIPATION. AT BEDSIDE AND PROVIDED POC UPDATE.
--- NOTE | 2024-07-14 09:10 | NUR ---
RIGHT IJ CENTRAL LINE INSERTION COMPLETE AND VERIFIED FOR USE BY CXR AT BEDSIDE BY DR. OLSON. PT TOLERATED PROCEDURE WELL WITH MODERATE DISCOMFORT AT INSERTION SITE. UNIT #2 PRBC STARTED. FURTHERING HYPOTENSION NOTED, CLOSELY MONITORING AT BEDSIDE.
--- NOTE | 2024-07-14 09:35 | NUR ---
NOTIFIED OF PERSISTANT HYPOTENSION WORSENING - LARGE QUANTITY OF GONZALO BLOOD FROM RECTUM. PT PLACED IN TRENDELENBURG, 1L BOLUS STARED WITH PRESSURE BAG, PRBC UNITS #3 AND 4 RETRIEVED FROM LAB.
[2024-07-14 09:51] LABS: IS CROSSMATCH COMPATIBLE
--- NOTE | 2024-07-14 10:03 | NUR ---
AT BEDSIDE TO ASSESS. PT CONTINUING TO PASS LARGE AMOUNTS OF GONZALO BLOOD FROM RECTUM WITH LARGE CLOTS. VS UNSTABLE, HYPOTENSION PERSISTANT DESPITE TRANSFUSION/POSISTIONING. PT REMAINS ALERT AND OREINTED BUT ANXIOUS, SOB AND DIAPHORETIC. UNIT # 3 AND 4 OF PRBC STARTED VIA REED RAPID TRANSFUSER. NO SIGN OF TRANSFUSION REACTION.
--- NOTE | 2024-07-14 10:26 | NUR ---
1026: BASILIO HENDERSON MD AND SURGEON AT BEDSIDE. PT FURTHER DECOMPOSATING R/T HYPOVOLEMIC SHOCK. PHARMACY, LAB, METHODS ANALYST AND OR TEAM AT BEDSIDE TO ASSIST IN RESPONSE. 1047: PRBC UNIT #5 STARTED VIA REED TRANSFUSER 1050: NOREPINEPHRINE STARTED INTO RIGHT IJ AT 10MCG/MIN 1053: PRBC UNIT # 6 STARTED VIA REED TRANSFUSER, 1 UNIT FFP STARTED VIA REED 1054: 1G TXA INFUSING 1055: CBG 163, UNIT #2 FFP STARTED VIA RAPID TRANSFUSER 1100: UNIT #7 PRBC STARTED VIA RAPID TRNASFUSER 1105: 1G TXA INFUSING, US GUIDED IV ACCESS IN RIGHT UPPER ARM BY KAYE Meneses RN 1107: UNIT #3 FFP STARTED VIA RAPID TRANSFUSER - PT WHEELED OUT OF ROOM TO OR SEE PRINTED VS IN CHART
[2024-07-14 10:42] LABS: BASOPHILS 1.2 % (0-2); EOSINOPHILS 0.3 % (0-6); HEMATOCRIT 25.6 % (35.0-50.0); HEMOGLOBIN 8.2 g/dL (12.0-18.0); LYMPHOCYTES 19.4 % (24-44); MCH 30.2 (27-36); MCHC 32.3 g/dl (30-36); MCV 93.7 fl (81-99); MONOCYTES 4.9 % (0-12); NEUTROPHILS 74.2 % (39-80); PLATELET COUNT 287 K/uL (140-440); RBC 2.73 M/ul (4.3-5.7)
[2024-07-14] MEDS ORDERED: NOREPINEPHRINE BITARTRATE 250 ML IV SCH (10:45)
[2024-07-14] MEDS ORDERED: DEXTROSE 5% IV SCH (10:45)
[2024-07-14] MEDS ORDERED: PANTOPRAZOLE SODIUM IV SCH (10:45)
[2024-07-14] MEDS ORDERED: TRANEXAMIC ACID IN NACL,ISO-OS 1,000 MG/100 ML PIGGYBACK IV ONE (10:45)
[2024-07-14] MEDS ORDERED: NOREPINEPHRINE BITARTRATE 250 ML IV ONE (10:47)
[2024-07-14] MEDS ORDERED: SODIUM CHLORIDE 0.9% 1,000 ML IV ONE (11:00)
[2024-07-14] MEDS ORDERED: LIDOCAINE HCL 2% 5 ML SDV ONE (11:01)
[2024-07-14] MEDS ORDERED: fentaNYL citrate 100 MCG/2 ML VIAL ONE (11:01)
[2024-07-14] MEDS ORDERED: ROCURONIUM BROMIDE 50 MG/5 ML SYR ONE ×2 (11:01→12:43)
[2024-07-14] MEDS ORDERED: ACETAMINOPHEN 1,000 MG/100 ML VIAL ONE (11:01)
[2024-07-14] MEDS ORDERED: propofoL 200 MG/20 ML VIAL ONE ×2 (11:01→14:39)
[2024-07-14] MEDS ORDERED: LIDOCAINE HCL 4% 5 ML AMP ONE (11:03)
[2024-07-14] MEDS ORDERED: MIDAZOLAM HCL 2 MG/2 ML VIAL ONE ×2 (11:06→14:13)
[2024-07-14] MEDS ORDERED: KETAMINE in NS 50 MG/5 ML SYR ONE (11:14)
[2024-07-14] MEDS ORDERED: ePHEDrine sulfate 50 MG/ML AMP ONE (11:15)
[2024-07-14] MEDS ORDERED: SODIUM CHLORIDE 0.9% 20 ML IV ONE ×2 (11:15→13:30)
--- NOTE | 2024-07-14 11:20 | NUR ---
RESPONDED TO CODE CRIMSOM ALERT. PT NOT AVAILABLE FOR VISIT. PROVIDED SUPPORT FOR FAMILY MEMBER IN ROOM THROUGHOUT. ESCORTED FAMILY TO SURGERY WAITING AREA; GAVE PAGER #1. FAMILY EXPRESSED GRATITUDE, HOPE, SITUATIONALLY APPROPRIATE EMOTIONS. ELECTRONICS INSTRUCTOR PROVIDED SUPPORTIVE PRESENCE, PRAYER, HOSPITALITY, FACILTIATED INTERACTION WITH THERAPY ANIMAL.
[2024-07-14] MEDS ORDERED: CEFAZOLIN SODIUM 2 GM/20 ML SYR IV ONE (11:45)
[2024-07-14] MEDS ORDERED: metroNIDAZOLE/SODIUM CHLORIDE 500 MG/100 ML PIGGYBACK IV SCH (11:45)
[2024-07-14] MEDS ORDERED: ondansetron HCL 4 MG/2 ML VIAL ONE (12:05)
[2024-07-14] MEDS ORDERED: DEXAMETHASONE SOD PHOS 4 MG/ML VIAL ONE ×2 (12:05→13:31)
[2024-07-14 12:08] LABS: BASE EXCESS, BLOOD GAS -14.1 mmol/L (-2-2); HCO3, BLOOD GAS 13.5 mmol/L (22-26); PH, BLOOD GAS 7.18 (7.35-7.45); PO2, BLOOD GAS 102 mmHg (80-100)
[2024-07-14 12:09] LABS: OXYGEN RECEIVED, BLOOD GAS 100%; TOTAL CO2, BLOOD GAS 14.65
[2024-07-14 12:09] LABS: HEMATOCRIT 25.4 % (35.0-50.0); HEMOGLOBIN 8.3 g/dL (12.0-18.0); MCH 30.8 (27-36); MCHC 32.8 g/dl (30-36); MCV 93.7 fl (81-99); RBC 2.71 M/ul (4.3-5.7); RDW 16.5 (10.5-15.0)
[2024-07-14 12:19] LABS: ANION GAP 17.1 (7-21); BUN/CREATININE RATIO 26.26 (6.0-28.6); CALCIUM 6.5 mg/dL (8.5-10.1); CREATININE, SERUM 0.99 mg/dL (0.55-1.02); POTASSIUM 6.1 mmol/L (3.5-5.1)
[2024-07-14 12:21] LABS: INR 1.43 (0.80-1.30)
[2024-07-14 12:23] LABS: PARTIAL THROMBOPLASTIN TIME 36.6 Sec (22.9-41.3)
[2024-07-14] MEDS ORDERED: SEVOFLURANE 250 ML BTL INH ONE (12:30)
[2024-07-14] MEDS ORDERED: SODIUM CHLORIDE 0.9% 2,000 ML IV ONE (12:43)
[2024-07-14 13:24] LABS: BASE EXCESS, BLOOD GAS -3.1 mmol/L (-2-2); HCO3, BLOOD GAS 23.2 mmol/L (22-26); O2 SATURATION, BLOOD GAS > 100.0 % (95.0-100.0); PO2, BLOOD GAS 318 mmHg (80-100); TOTAL CO2, BLOOD GAS 24.7
[2024-07-14 13:25] LABS: OXYGEN RECEIVED, BLOOD GAS 100%
[2024-07-14 13:27] LABS: HEMATOCRIT 24.6 % (35.0-50.0); HEMOGLOBIN 8.4 g/dL (12.0-18.0); MCH 31.1 (27-36); MCHC 34.4 g/dl (30-36); MCV 90.6 fl (81-99); RBC 2.72 M/ul (4.3-5.7)
[2024-07-14] MEDS ORDERED: Ropivacaine HCl 0.5% 30 ML VIAL ONE (13:28)
[2024-07-14] MEDS ORDERED: SODIUM CHLORIDE 0.9% 40 ML IV ONE (13:28)
[2024-07-14] MEDS ORDERED: dexmedeTOMIDine HCl 200 MCG/2 ML VIAL ONE (13:31)
[2024-07-14 13:38] LABS: INR 1.25 (0.80-1.30); PROTIME 15.3 Sec (11.2-14.2)
[2024-07-14 13:40] LABS: PARTIAL THROMBOPLASTIN TIME 30.2 Sec (22.9-41.3)
--- NOTE | 2024-07-14 13:41 | NUR ---
patient to bsc w/1pa fww. patient tolerated well. matos catheder drained, 325cc. patient had bm. patient back in chair. chair alarm on, in room, call light within reach.
[2024-07-14 14:15] LABS: BUN/CREATININE RATIO 25.53 (6.0-28.6); CALCIUM 8.9 mg/dL (8.5-10.1); CREATININE, SERUM 0.94 mg/dL (0.55-1.02)
[2024-07-14] MEDS ORDERED: propofoL 100 ML IV ONE (14:26)
--- NOTE | 2024-07-14 14:33 | OR ---
[facility] [address], [place] [address] Signed DATE OF OPERATION: 07/14/2024 SURGEON: Oli Olson MD PREOPERATIVE DIAGNOSES: 1. Gastric and duodenal ulcers. 2. Anemia. POSTOPERATIVE DIAGNOSES: 1. Gastric and duodenal ulcers. 2. Anemia. PROCEDURES: 1. Placement of right internal jugular triple-lumen catheter. 2. Physician-directed ultrasound. ESTIMATED BLOOD LOSS: None. INDICATIONS: Magalis is a 53-year-old obese diabetic female, who for some reason decided to take a bunch of ibuprofen, naproxen and Tylenol over the last few days. She had abdominal pain, chest pain and shortness of breath. She came to the emergency room for evaluation. Her cardiac and chest evaluation was negative. They were getting ready to send her home. She passed a large amount of maroon colored stool and blood. She felt a little dizzy and had to lay back down in the bed. Her hemoglobin had gone from 12.3 down to 9.6. She had been admitted to the hospitalist service for her GI bleed. She also has a previous laparoscopic gastric band placed in 2010. She said it never really worked. I helped her with upper endoscopy last evening and her gastric band has eroded through the wall of her stomach. That appears to be more chronic. She had one antral ulcer and another ulcer just as we traveled from the antrum into the pyloric bulb and the 3rd ulcer was as we went from the pyloric bulb to the duodenum. That was the largest ulcer with a large blood clot. We did not remove that blood clot and we did not put any clips. It was a difficult angle. We kept her overnight of course and hydrated, repeated her serial hemoglobin levels. This morning, she had dropped down to a hemoglobin of 6.1. She is awaiting a couple units of packed red blood cells. We talked about having her transferred to a higher level of care for Interventional Radiology for embolization of the gastroduodenal artery. Our hospitalist service has been working on that all morning. I was asked to come and place a triple-lumen catheter for her as she lost her single peripheral IV. I had met with Magalis and her and explained to Electronically Signed By: OLI OLSON MD 07/14/24 1433 PATIENT NAME: MAGALIS BLACKMAN OPERATIVE REPORT DATE OF : 72 REPORT #: [id number] PHYSICIAN: OLI OLSON MD PCP: ERIC PIERRE MD REPORT IS CONFIDENTIAL AND NOT TO BE RELEASED WITHOUT AUTHORIZATION [facility] [address] [place] [id number] Signed them the nature of the IV. They understand to do this under ultrasound guidance. There is risk including, but not limited to bleeding, infection, scarring, change in contour of the skin as well as pneumothorax requiring chest tube placement. They had expressed understanding and wished to proceed. DESCRIPTION OF PROCEDURE: Magalis was kept in her ICU bed and placed in the supine somewhat Trendelenburg position. Her right neck and chest wall were prepped and draped in the usual sterile fashion. We localized her carotid artery and the internal jugular vein with the help of the ultrasound. We could easily see the ultrasound was compressible and the artery was pulsatile and noncompressible. We injected some local anesthetic in her skin and the subcutaneous tissues. We watched our needle travel down to the internal jugular vein and we entered the vein without difficulty. We were able to draw back nonpulsatile dark venous blood. We then passed the wire and checked the position with the ultrasound. We then dilated the tract and placed our triple-lumen catheter up to 15 cm. All three ports were able to draw and flush quite readily dark venous blood. We then held the catheter in place with interrupted silk sutures. Dry plastic occlusive dressing was then applied. Magalis tolerated the procedure quite well. Initial chest x-ray is completed and looks to be in good position without any pneumothorax. The final read is pending. Oli Olson MD ALB/MODL /[id number] cc: MD Oli Foster MD Copies: ERIC PIERRE DMD, ANDREW L MD ~ Electronically Signed By: OLI OLSON MD 07/14/24 1433 PATIENT NAME: MAGALIS BLACKMAN OPERATIVE REPORT DATE OF : 72 REPORT #: [id number] PHYSICIAN: OLI OLSON MD PCP: ERIC PIERRE MD REPORT IS CONFIDENTIAL AND NOT TO BE RELEASED WITHOUT AUTHORIZATION
--- NOTE | 2024-07-14 14:40 | NUR ---
PT RETURNS TO UNIT FROM OR WITH OR CREW - REPORT RECEVEID FROM CREDIT UNION TELLER AND ASSEMBLER TUBING. PT INTUBATED AND STABLE UPON ARRIVAL. MEDICATION AND BLOOD PRODUCT ADMINISTRATION REVIEWED, 12 UNITS PRBC, 12 UNITS FFP AND 5L LR TOTAL SO FAR THIS SHIFT RECEIVED. H/H STABLE AT LAST DRAW. ART LINE ZERO'D, ABG PULLED FROM LINE FOR RT. MIDLINE INC DRESSING C/D/I. SEE EMAR FOR TITRATION OF SEDATION. SEE ABCDEF BUNDLE FOR INTUBATION CARES DOCUMENTATION. AND DAUGHTER AT BEDSIDE, UPDATED ON CURRENT POC.
[2024-07-14] MEDS ORDERED: propofoL 100 ML IV SCH (15:00)
--- NOTE | 2024-07-14 15:20 | NUR ---
PLATELET INFUSION STARTED.
[2024-07-14 15:21] LABS: BASE EXCESS, BLOOD GAS -5.3 mmol/L (-2-2); HCO3, BLOOD GAS 19.4 mmol/L (22-26); O2 SATURATION, BLOOD GAS > 100.0 % (95.0-100.0); PCO2, BLOOD GAS 31.8 mmHg (35-45); PH, BLOOD GAS 7.39 (7.35-7.45); PO2, BLOOD GAS 124 mmHg (80-100); TOTAL CO2, BLOOD GAS 20.4
[2024-07-14 15:22] LABS: OXYGEN RECEIVED, BLOOD GAS 50%
[2024-07-14 15:23] LABS: HEMATOCRIT 25.6 % (35.0-50.0); HEMOGLOBIN 8.9 g/dL (12.0-18.0); MCH 31.6 (27-36); MCHC 34.7 g/dl (30-36); MCV 90.9 fl (81-99); PLATELET COUNT 82 K/uL (140-440); RBC 2.82 M/ul (4.3-5.7); RDW 15.7 (10.5-15.0)
[2024-07-14 15:34] LABS: ALBUMIN 2.2 g/dL (3.4-5.0); ALBUMIN/GLOBULIN RATIO 0.92 (1.1-2.4); ANION GAP 14.9 (7-21); BILIRUBIN, TOTAL 0.7 ng/dL (0.2-1.0); BUN/CREATININE RATIO 23.07 (6.0-28.6); CALCIUM 8.6 mg/dL (8.5-10.1); CREATININE, SERUM 1.04 mg/dL (0.55-1.02); MAGNESIUM 1.6 mg/dL (1.8-2.4); PHOSPHORUS, INORGANIC 3.8 mg/dL (2.5-4.9); POTASSIUM 4.9 mmol/L (3.5-5.1); PROTEIN, TOTAL 4.6 g/dL (6.4-8.2)
[2024-07-14 15:38] LABS: LYMPHOCYTES, MANUAL DIFF 3; MONOCYTES, MANUAL DIFF 4; NEUTROPHILS, MANUAL DIFF 93
--- NOTE | 2024-07-14 15:56 | NUR ---
TELEPHONE ORDER RECEIVED FROM DR. OLSON FOR STAT CBC - INFUSE 2ND BAG PLATLETS IF RESULTING PLATLETS <100.
[2024-07-14 15:59] LABS: IS CROSSMATCH COMPATIBLE
[2024-07-14 16:04] LABS: IS CROSSMATCH COMPATIBLE
[2024-07-14 16:05] LABS: IS CROSSMATCH COMPATIBLE
[2024-07-14] MEDS ORDERED: MAGNESIUM SULFATE 50 ML IV ONE (16:12)
[2024-07-14 16:15] LABS: BASOPHILS 0.4 % (0-2); EOSINOPHILS 0.1 % (0-6); HEMATOCRIT 26.4 % (35.0-50.0); HEMOGLOBIN 8.9 g/dL (12.0-18.0); LYMPHOCYTES 3.9 % (24-44); MCH 30.6 (27-36); MCHC 33.8 g/dl (30-36); MCV 90.5 fl (81-99); MONOCYTES 4.2 % (0-12); NEUTROPHILS 91.4 % (39-80); PLATELET COUNT 104 K/uL (140-440); RBC 2.92 M/ul (4.3-5.7); RDW 15.5 (10.5-15.0)
[2024-07-14 17:50] LABS: BASOPHILS 0.1 % (0-2); HEMOGLOBIN 8.6 g/dL (12.0-18.0); MCH 31.1 (27-36); MCHC 34.3 g/dl (30-36); MCV 90.6 fl (81-99); MONOCYTES 3.5 % (0-12); NEUTROPHILS 92.4 % (39-80); PLATELET COUNT 103 K/uL (140-440); RBC 2.76 M/ul (4.3-5.7); RDW 15.3 (10.5-15.0)
[2024-07-14] MEDS ORDERED: ALBUTEROL SULFATE 0.083% 3 ML VIAL INH PRN (18:00)
[2024-07-14] MEDS ORDERED: propofoL 200 MG/20 ML VIAL IV ONE (18:45)
--- NOTE | 2024-07-14 19:30 | NUR ---
SHIFT REPORT RECEIVED AT BEDSIDE. PATIENT VS STABLE. TOLERATING VENT. LINES AND DRIPS VERIFIED PER ORDERS. CENTRAL LINE DRESSING INTACT; SITE NOTED TO BE SWOLLEN. DAYSHIFT RN VERIFIED BLOOD RETURN AND THAT SITE IS UNCHANGED FROM TIME OF PLACEMENT. WRIST RESTRAINTS IN PLACE PER ORDER.
--- NOTE | 2024-07-14 20:30 | NUR ---
PATIENT PROVIDED PRN PAIN MEDS AFTER REPORTING THAT SHE WAS PAINFUL. SEDATION TITRATED TO MAINTAIN RASS -2. VS STABLE. TOLERATING VENT, SETTINGS PER RT. ABD IS MODERATELY DISTENDED BUT SOFT. COLLEEN HAS MINIMAL DRAINAGE AT THIS TIME; SEROSANGUINEOUS. LOMAS CARE DONE; DRAINING CLEAR YELLOW URINE. ART LINE WNL; TRENDING WITH EXTRENAL BP READINGS. COLLEEN TUBE NOTED TO HAVE DARK RED DRAINAGE. DISCUSSED WITH ; FLUSHED WITH 20MLS NS PER HIS ORDER. CONNECTED TO LIWS.
--- NOTE | 2024-07-14 21:00 | NUR ---
LABS DRAWN PER ORDER. UPDATE GIVEN TO AT BEDSIDE. PATIENT'S BACK AT BEDSIDE.
[2024-07-14 21:21] LABS: BASOPHILS 0.1 % (0-2); HEMATOCRIT 26.2 % (35.0-50.0); HEMOGLOBIN 8.9 g/dL (12.0-18.0); LYMPHOCYTES 5.9 % (24-44); MCH 30.8 (27-36); MCHC 34.1 g/dl (30-36); MCV 90.5 fl (81-99); MONOCYTES 2.2 % (0-12); NEUTROPHILS 91.8 % (39-80); PLATELET COUNT 112 K/uL (140-440); RDW 15.7 (10.5-15.0)
[2024-07-14 21:29] LABS: ALBUMIN 2.3 g/dL (3.4-5.0); ALBUMIN/GLOBULIN RATIO 0.82 (1.1-2.4); BILIRUBIN, TOTAL 0.5 ng/dL (0.2-1.0); BUN/CREATININE RATIO 24.74 (6.0-28.6); CALCIUM 8.3 mg/dL (8.5-10.1); CREATININE, SERUM 0.97 mg/dL (0.55-1.02); PROTEIN, TOTAL 5.1 g/dL (6.4-8.2)
--- NOTE | 2024-07-14 22:30 | NUR ---
PATIENT COUGHING AND NOT TOLERATING VENT; INCREASED SEDATION. ORAL IN AND IN-LINE SUCTION HAD MINIMAL SECREATIONS. ENCOURAGED PATIENT TO REST. PATIENT FOLLOWS SOME COMMANDS. APPEARS UNCOMFORTABLE. REPOSITONED FOR COMFORT.
--- NOTE | 2024-07-14 23:46 | NUR ---
PATIENT REPOSITIONED IN BED. WHEN ROLLED TO LEFT SIDE PATIENT HAD LIQUID BM START TO COME OUT. LARGE AMOUNT OF FULL LIQUID DARK RED/BLACK OUTPUT NOTED. PATIENT CLEANED AND REPOSITIONED. PATIENT ALERTS TO CARE EASILY AND IS ANXIOUS, NOT FOLLOWING COMMANDS. ATTEMPTS MADE TO VERBALLY SOOTHE PATIENT. PRN MEDS AND SEDATION TITRATION TO ACHEIVE RASS GOAL -2. ORAL CARE DONE. REDNESS UNDER BREAST NOTED, UNCHANGED FROM YESTERDAY'S ASSESSMENT. AREA CLEANED, DRIED AND BARRIER CREAM APPLIED. MOISTURE WICKING TOWEL PLACED UNDER BREAST. COLLEEN DRAINED FOR 40 MLS SEROSANG DRAINAGE. MIDLINE INCISION DRESSING NOTED TO HAVE SMALL AMOUNT OF SHADOWING ON DISTAL PORTION. ABD REMAINS SOFT. BOWEL SOUNDS HYPOACTIVE. VS STABLE.
[2024-07-15] VITALS (33 sets, daily range): BP systolic 73–140; BP diastolic 43–99
--- NOTE | 2024-07-15 01:36 | NUR ---
RASS -2. PATIENT VS STABLE. NG TUBE FLUSHED; DRAINAGE IS THICK RED OUTPUT. PATIENT TOLERATING VENT; SETTINGS PER RT. FAMAILY AT BEDSIDE.
--- NOTE | 2024-07-15 03:14 | NUR ---
PATIENT INCREASINGLY RESTLESS AND DIFFICULT TO CONSOLE. PATIENT NOT ABLE TO FOLLOW COMMANDS OR COMMUNICATE IN ANY MANNOR. PRN DILAUDID PROVIDED FOR PAIN COVERAGE. SEDATION INCREASED TO MAINTAIN RASS -2. PATIENT STARTING TO CALM. FAMILY AT BEDSIDE.
--- NOTE | 2024-07-15 04:30 | NUR ---
PATIENT TOLERATING VENT. RASS -2. REPOSITIONED PATIENT. ART LINE FLUSHED AND ZEROED. PATIENT VS STABLE. URINE OUTPUT QS. DARK RED DRAINING NOTED IN NG TUBE; FLUSHED WITH NS PER ORDER. ABD IS SOFT, BOWEL SOUNDS HYPOACTIVE. COLLEEN EMPTIED FOR 60 MLS OF THIN SEROSANG DRAINAGE. PATIENT'S AT BEDSIDE.
--- NOTE | 2024-07-15 05:00 | NUR ---
LABS DRAWN PER ORDER; ALL LINES ON CENTRAL LINE WERE FLUSHED AND DRAW BACK BLOOD. SITE CONTINUES TO APPEAR SWOLLEN, UNCHANGED FROM PRIOR ASSESSMENTS AND POSSIBLY DUE TO PATIENT'S NECK ANATOMY.
[2024-07-15 05:21] LABS: BASOPHILS 0.1 % (0-2); HEMATOCRIT 24.1 % (35.0-50.0); HEMOGLOBIN 8.2 g/dL (12.0-18.0); LYMPHOCYTES 7.7 % (24-44); MCH 30.6 (27-36); MCHC 33.9 g/dl (30-36); MCV 90.2 fl (81-99); MONOCYTES 4.4 % (0-12); NEUTROPHILS 87.8 % (39-80); PLATELET COUNT 139 K/uL (140-440); RBC 2.68 M/ul (4.3-5.7); RDW 15.9 (10.5-15.0)
[2024-07-15 05:54] LABS: ALBUMIN 2.1 g/dL (3.4-5.0); ALBUMIN/GLOBULIN RATIO 0.81 (1.1-2.4); ANION GAP 1.6 (7-21); BILIRUBIN, TOTAL 0.3 ng/dL (0.2-1.0); BUN/CREATININE RATIO 17.94 (6.0-28.6); CALCIUM 8.2 mg/dL (8.5-10.1); CREATININE, SERUM 1.17 mg/dL (0.55-1.02); MAGNESIUM 1.9 mg/dL (1.8-2.4); POTASSIUM 4.6 mmol/L (3.5-5.1); PROTEIN, TOTAL 4.7 g/dL (6.4-8.2)
--- NOTE | 2024-07-15 06:30 | NUR ---
PATIENT MORE RESTLESS; TITRATED SEDATION TO MAINTAIN RASS -2.
[2024-07-15] MEDS ORDERED: metroNIDAZOLE/SODIUM CHLORIDE 500 MG/100 ML PIGGYBACK IV SCH ×2 (07:00→09:00)
--- NOTE | 2024-07-15 07:30 | NUR ---
REPORT RECEIVED FROM HANK BISHOP. PT IS ON VENT, RESTRAINTS IN PLACE, IN ROOM. PRECEDEX AND PROPOFOL DRIPS INFUSING.
--- NOTE | 2024-07-15 08:15 | NUR ---
DR OLSON IN TO SEE PT AND DISCUSS PLAN OF CARE WITH .
[2024-07-15] MEDS ORDERED: CEFTRIAXONE/SODIUM CHLORIDE 2 GM/100 ML PIGGYBACK IV SCH (09:00)
[2024-07-15] MEDS ORDERED: PANTOPRAZOLE SODIUM 40 MG/10 ML VIAL IV SCH (09:00)
--- NOTE | 2024-07-15 09:07 | NUR ---
DISCUSSED PLAN FOR EXTUBATION TODAY WITH MD AND RT. WILL ATTEMPT SAT. PRECEDEX DRIP TURNED DOWN. DISCUSSED PLAN WITH WHO IS IN ROOM.
--- NOTE | 2024-07-15 10:15 | NUR ---
PT EXTUBATED WITH RT PRESENT. PROPOFOL TURNED OFF, PRECEDEX AT 1 MCG/KG/HR. PT SLIGHTLY CONFUSED AFTER EXTUBATION BUT REORIENTED QUICKLY. C/O "TERRIBLE HEADACHE," 1MG IV DILAUDID GIVEN FOR PAIN. PT BREATHING EVEN AND UNLABORED, SPO2 100% ON 3L/NC WITH RR 20. REMAINS AT BEDSIDE, RESTRAINTS.
--- NOTE | 2024-07-15 11:58 | NUR ---
O2 TURNED DOWN TO 2L/NC SPO2 WAS 99%.
--- NOTE | 2024-07-15 12:30 | NUR ---
PT REPOSITIONED, C/O SOME KNEE PAIN BUT REPORTS RELIEF WITH REPOSITIONING. PRECEDEX DRIP REMAINS OFF, PT HAS BEEN AWAKE AND TALKING WITH FAMILY. PT GIVEN BED BATH. COLLEEN DRAINING S/S FLUID. NGT IN PLACED DRAINING SMALL AMT BLACK/RED FLUID. ABD INC OPEN TO AIR WITH MARK ANTHONY IN PLACE.
--- NOTE | 2024-07-15 13:33 | OR ---
[facility] [address], [place] [address] Signed DATE OF OPERATION: 07/14/2024 SURGEON: Oli Olson MD PREOPERATIVE DIAGNOSIS: Bleeding duodenal ulcer. POSTOPERATIVE DIAGNOSIS: Bleeding duodenal ulcer. PROCEDURES: 1. Esophagogastroduodenoscopy without biopsy. 2. Laparotomy with over-sew bleeding duodenal ulcer. 3. Placement of subhepatic drain. IN-AND-OUT: In was 12 units of packed red blood cells total, 12 units of FFP total, 2 amps of calcium chloride, and 2 amps of sodium bicarbonate. Out with 600 mL of urine over 2 hours and 300 mL of blood from her stomach and duodenum. FINDINGS: Magalis had the classic posterior duodenal ulcer, easily controlled with 2-0 silk stitches. INDICATIONS: Magalis is a 53-year-old obese diabetic female, who came into the emergency room with what she said was two days of abdominal pain. Despite what she has been told in the past, she was taking ibuprofen, naproxen, and Tylenol for the pain. She also was complaining of chest pain and shortness of breath. Her cardiac and pulmonary workups were negative. She seemed to be doing okay. She was actually going to be sent home. She then passed a large amount of maroon-colored stool and was feeling lightheaded and dizzy. She was therefore admitted to our hospitalist service for a GI bleed. Her initial hemoglobin was 12, it dropped down to 9.6. I have been asked to see her as a local general surgeon on-call. We took her to the endoscopy suite last evening about 5:30 to 6 o'clock in the evening. She had an eroded laparoscopic gastric band that will need to be addressed at some point in the future. She had one antral ulcer and then two ulcers in the pyloric bulb. The more distal ulcer had a large clot. We talked about having her transferred for Interventional Radiology embolization of gastroduodenal artery. Unfortunately, her hemoglobin continued to drop and she became unstable so, we decided we had to take her down to the operating room. I had been talking with Magalis Electronically Signed By: OLI OLSON MD 07/15/24 1333 PATIENT NAME: MAGALIS BLACKMAN OPERATIVE REPORT DATE OF : 72 REPORT #: [id number] PHYSICIAN: OLI OLSON MD PCP: ERIC PIERRE MD REPORT IS CONFIDENTIAL AND NOT TO BE RELEASED WITHOUT AUTHORIZATION [facility] [address], [place] [address] Signed this morning and I placed a right IJ triple lumen catheter under ultrasound guidance. Her has been here as well. I explained that we needed to run her back down to the OR. We did try our best with the gastroscope to look to see we could clip the artery, but if that was not possible, she was going to need a laparotomy and over-sew the duodenal ulcer. I explained that to Magalis and her . There is risk including, but not limited to bleeding, infection, scarring, change in contour of the skin as well as recurrent bleeding duodenal ulcer as well as damage to bowel, anastomotic leak, and other unforeseen issues. They had expressed understanding and wished to proceed. PROCEDURE NOTE: Magalis was taken down to our operating room, placed in the supine position under general endotracheal tube anesthesia. I had placed a right IJ triple lumen catheter this morning. Our nurse big machine consultant provided a left radial arterial line. We placed a Amador catheter with return of clear yellow urine without difficulty. Of course, she continued to have maroon-colored blood per rectum. We passed the adult gastroscope in and we went through her gastric band and into the stomach. She had a large amount of bright red blood both liquid and clotted. We were trying to work our way down to the pyloric bulb. We were not having much success. We decided to abandon that approach. She was then prepped and draped in the usual sterile fashion. We went ahead and utilized her previous midline incision down past the umbilicus. We used our Bookwalter retractor. She has had a previous cholecystectomy. It took just a few minutes to take down some adhesions to free up the duodenum. I could feel the indurated duodenal ulcer posteriorly. We opened up the duodenum anteriorly and longitudinally across the pyloric channel. We put a stay stitch of silk suture on either side and sure enough we easily found the bleeding gastric duodenal artery with every heartbeat. It was easily controlled with my index finger. I used an 0 Vicryl suture on the right lateral side with care not to go too deep knowing that the distal common bile duct is not all that far away. That stopped most of the bleeding. We then placed a stitch on the left lateral side and there was no bleeding from that artery after that. It was a pretty impressive ulcer actually. We looked at the incision. We decided to close that transversely in layers with running 3-0 Vicryl suture and then interrupted 3-0 silk Lembert sutures. That gave nice tight closure. We went ahead and placed a #10 flat Jaden drain, passed our suture line and out the right side of the abdomen. It was held in place in the skin with an interrupted 3-0 nylon suture. We had placed an NG tube during surgery and I could easily palpate that just proximal to the area of our repair. Of course, we saw the tubing from the laparoscopic gastric band. Her pump is on the left side and comes underneath up to the area of the GE junction. We closed the abdomen with interrupted [id number] and simple #1 PDS sutures. I injected local anesthetic in the abdominal wall from the xiphoid process down past the umbilicus. The wound was irrigated and suctioned out until clear. We brought the dermis together with Electronically Signed By: OLI OLSON MD 07/15/24 1333 PATIENT NAME: MAGALIS BLACKMAN OPERATIVE REPORT DATE OF : 72 REPORT #: [id number] PHYSICIAN: OLI OLSON MD PCP: ERIC PIERRE MD REPORT IS CONFIDENTIAL AND NOT TO BE RELEASED WITHOUT AUTHORIZATION [address] [address] Signed interrupted 3-0 subcuticular Monocryl sutures. The skin was reapproximated with armand. Dry gauze and tape were then applied. After this, our nurse big machine consultant provided bilateral tap blocks with the help of the ultrasound. We left her intubated in serious condition and we transferred over to her hospital bed and we took her back over to the ICU in stable condition. In total, she received 12 units of packed red blood cells today along with 12 units of FFP, 2 amps of calcium chloride, and 2 amps of sodium bicarbonate. Her repeat labs actually have been consistent with her resuscitation and intraoperative findings. Oli Olson MD ALB/MODL /[id number] cc: MD Eric Stovall MD Copies: OLI OLSON MD, ROBERT D DMD ~ Electronically Signed By: OLI OLSON MD 07/15/24 1333 PATIENT NAME: MAGALIS BLACKMAN OPERATIVE REPORT DATE OF : 72 REPORT #: [id number] PHYSICIAN: OLI OLSON MD PCP: ERIC PIERRE MD REPORT IS CONFIDENTIAL AND NOT TO BE RELEASED WITHOUT AUTHORIZATION
--- NOTE | 2024-07-15 14:50 | NUR ---
IN TO SEE PT, SHE C/O "STOMACH TIGHTNESS" SHE ALSO IS CRYING AND EMOTIONAL, STATING SHE IS VERY UNCOMFORTABLE. PRN COMPAZINE GIVEN. PT WAS THEN POSITIONED ONTO SIDE, DURING REPOSITIONING PT BECAME INCREASINGLY ANXIOUS AND WAS WANTING TO GET UP. SHE SAT HERSELF UP AND SAT AT EDGE OF BED, CRYING AND YELLING THAT SHE NEEDED TO GET UP. SHE THEN GOT HERSELF UP TO STANDING, WAS NOT LISTENING TO DIRECTIONS OF STAFF. PT WAS STANDING WITH ASSIST OF RN AND AND THEN HAD TO SIT BACK DOWN AND THEN LIE DOWN SIDEWAYS IN THE BED. DURING THIS ENTIRE EPISODE SHE WAS VERY FRANTIC, IMPULSIVE, YELLING OUT AND CRYING. EXTRA STAFF WAS CALLED AND PT WAS SITUATED UP IN BED. SHE CALMED SHE WAS BEING POSITIONED AND LINENS WERE CHANGED. DURING THIS TIME ART LINE WAS DISLODGED, IT WAS REMOVED AND PRESSURE WAS APPLIED WITH PRESSURE DRESSING. PT NOW RESTING IN BED, CALM AND TALKING WITH .
--- NOTE | 2024-07-15 16:02 | NUR ---
LOW BP'S NOTED. DR OLSON UPDATED ON PTS BP AND HER EPISODE OF AGITATION. ORDER GIVEN FOR ATIVAN PRN.
[2024-07-15] MEDS ORDERED: LORazepam 2 MG/ML VIAL IV PRN (16:15)
--- NOTE | 2024-07-15 16:15 | NUR ---
DR MARCOS UPDATED ON PTS BLOOD PRESSURES. ORDERS GIVEN FOR STAT LABS AND 1L NS BOLUS. BOLUS STARTED.
[2024-07-15 16:26] LABS: BASOPHILS 0.1 % (0-2); HEMATOCRIT 21.3 % (35.0-50.0); HEMOGLOBIN 7.4 g/dL (12.0-18.0); LYMPHOCYTES 8.5 % (24-44); MCHC 34.7 g/dl (30-36); MCV 89.1 fl (81-99); MONOCYTES 6.5 % (0-12); NEUTROPHILS 84.9 % (39-80); PLATELET COUNT 144 K/uL (140-440); RBC 2.39 M/ul (4.3-5.7); RDW 15.4 (10.5-15.0)
[2024-07-15 16:42] LABS: ALBUMIN 1.9 g/dL (3.4-5.0); ALBUMIN/GLOBULIN RATIO 0.73 (1.1-2.4); ANION GAP 12.9 (7-21); BILIRUBIN, TOTAL 0.4 ng/dL (0.2-1.0); BUN/CREATININE RATIO 17.82 (6.0-28.6); CALCIUM 8.1 mg/dL (8.5-10.1); CREATININE, SERUM 1.29 mg/dL (0.55-1.02); POTASSIUM 3.9 mmol/L (3.5-5.1); PROTEIN, TOTAL 4.5 g/dL (6.4-8.2)
[2024-07-15] MEDS ORDERED: SODIUM CHLORIDE 0.9% 1,000 ML IV ONE (17:00)
[2024-07-15] MEDS ORDERED: SODIUM CHLORIDE 0.9% 1,000 ML IV SCH (17:15)
--- NOTE | 2024-07-15 17:15 | NUR ---
LAB RESULTS CALLED TO DR MARCOS, ORDER GIVEN FOR 1 UNIT PRBCS. STRIP TANK TENDER TO GET BLOOD FROM LAB, PT AWARE AND AGREEABLE.
--- NOTE | 2024-07-15 17:30 | NUR ---
UNIT OF PRBCS STARTED INFUSING. PT REPORTS INC OF STOOL, ATTENDS CHANGED. PT HAD SMALL AMOUNT OF BURGANDY LIQUID STOOL OUT. PT REPOSITIONED ONTO SIDE LYING POISTION. REPORTS SOME ABDOMINAL PAIN, AWARE OF LOW BP'S AND STATES SHE CAN WAIT FOR PAIN MEDICATION.
--- NOTE | 2024-07-15 18:50 | NUR ---
1L NS BOLUS HAS BEEN GIVEN, UNIT OF PRBC'S IS COMPLETED. BP'S HAVE COME UP, LAST BP 96/50. WILL DRAW REPEAT CBC.
--- NOTE | 2024-07-15 19:30 | NUR ---
SHIFTR REPORT RECEIVED. PATIENT RESTING IN BED. REPORTS PAIN IN ABD. PATIENT IS DROWSY BUT ORIENTED TO SELF AND SURROUNDINGS. VS STABLE. BP IMPROVED POST IV BOLUS AND PRBC INFUSION. LABS DRAWN FROM CENTRAL LINE BY MARY ANN BISHOP.
[2024-07-15 19:39] LABS: BASOPHILS 0.2 % (0-2); HEMATOCRIT 24.6 % (35.0-50.0); HEMOGLOBIN 8.5 g/dL (12.0-18.0); LYMPHOCYTES 9.6 % (24-44); MCH 30.8 (27-36); MCHC 34.4 g/dl (30-36); MCV 89.5 fl (81-99); MONOCYTES 5.7 % (0-12); NEUTROPHILS 84.5 % (39-80); PLATELET COUNT 141 K/uL (140-440); RBC 2.75 M/ul (4.3-5.7); RDW 15.4 (10.5-15.0)
[2024-07-15] MEDS ORDERED: HYDROmorphone HCL 1 MG/ML SYR IV PRN (19:45)
--- NOTE | 2024-07-15 19:54 | NUR ---
PATIENT UPDATE PROVIDED TO AND DR. OLSON. DISCUSSED PATIENT'S ONGOING PAIN WITH . NEW ORDERS PLACED BY .
--- NOTE | 2024-07-15 20:29 | NUR ---
PATIENT PROVIDED PRN PAIN MEDS FOR 10/10 ABD PAIN. PATIENT IS AAOX4. AT BEDSIDE. VS STABLE. TOLERATING 2L NC. ABD IS SOFT, MODERATELY DISTENDED. MIDLINE INCISION WELL APPROXIMATED. COLLEEN DRAIN HAS MINIMAL SERSANG DRAINAGE; SITE WNL. LOMAS CARE DONE. PATIENT OUTPUT QS. NG TUBE FLUSHED LIGHTLY WITH 20 ML NS; RETURN OF FLUSH AND DARK RED DRAINAGE NOTED. PATIENT ASSISTED TO DO ORDER CARE AND CHAP STICK APPLIED. CENTRAL LINE SITE HAS SMALL AMOUNT OF BLOOD NOTED UNDER DRESSING; DRESSING INTACT. ALL LINES FLUSH AND RETURN BLOOD EASILY. PATIENT VISITING WITH FAMILY VIA PHONE. CALL LIGHT IN REACH.
--- NOTE | 2024-07-15 21:00 | NUR ---
PATIENT ASSISTED TO REPOSTION IN BED. PATIENT REPORTS PAIN WITH MOVEMENT AND IS WEAK. PATIENT HAD SMALL AMOUNT OF RED STOOL DRAINAGE. AREA CLEANED AND BARRIER CREAM APPLIED. PATIENT IS ANXIOUS AND CRYING. THIS RN AND ATTEMPT TO CALM PATIENT. PATIENT HAS NO DIRECT COMPLAINTS, BUT IS EMOTIONAL ABOUT HER HEALTH AND THE RECENT EVENTS. ENCOURAGED PATIENT TO REST. AT BEDSIDE.
--- NOTE | 2024-07-15 22:07 | NUR ---
PATIENT CONTINUES TO REPORT 8/10 PAIN IN HER ABD, AT INCISION SITE AND ON RLQ NEAR THE COLLEEN SITE. PATIENT DENIED NAUSEA. ABD REMAINS SOFT. BOWEL SOUNDS HYPOACTIVE. VS STABLE. PATIENT PROVIDED PRN PAIN AND ANXIETY MEDS. THIS RN SAT WITH PATIENT UNTIL SHE WAS MORE CALM, REASSURING PATIENT AND ENCOURAGING SLEEP. PATIENT'S AT BEDSIDE.
--- NOTE | 2024-07-15 23:00 | NUR ---
PATIENT RESTING IN BED. EYES CLOSED. VS STABLE. ALLOWED PATIENT TO REST.
[2024-07-16] VITALS (18 sets, daily range): BP systolic 95–157; BP diastolic 51–88
--- NOTE | 2024-07-16 00:19 | NUR ---
PATIENT RESTING IN BED ATTEMPTING TO SLEEP. PATIENT REPORTS BEING MORE COMFORTABLE AT THIS TIME. FRESH ICE PACK APPLIED TO ABD. NG TUBE RESECURED WITH PINK TAPE WHICH WAS COMING LOSE ON THE PATIENT'S NOSE. PATIENT DENIED GI UPSET. VS STABLE. CENTRAL LINE SITE WNL. URINE OUTPUT QS. ENCOURAGED PATIENT TO REST. CALL LIGHT IN REACH.
--- NOTE | 2024-07-16 03:04 | NUR ---
PATIENT PROVIDED PRN PAIN MEDS FOR 8/10 PAIN IN ABD AND GENERALIZED BODY ACHES. PATIENT HAD LARGE LIQUID RED/BLACK STOOL. PATIENT CLEANED AND BARRIER CREAM APPLIED TO ALEX AREA. NEW GOWN AND LINEN PROVIDED. RED AREAS OF SKIN UNDER BREAST CLEANED, DRIED AND MOISTURE WICKING CLOTH APPLIED. AREAS APPEAR IMPROVED AND LESS IRRITATED. PATIENT REPOSITIONED FOR COMFORT. LIGHTS DIMMED AND ENCOURAGED PATIENT TO REST. CALL LIGHT IN REACH.
--- NOTE | 2024-07-16 05:30 | NUR ---
LABS DRAWN FROM CENTRAL LINE PER PROTOCOL. SITE WNL. ALL LINE RETURN BLOOD AND FLUSHED EASILY. PATIENT REPORTS 8/10 PAIN IN HER ABD, MORE ON THE RLQ. DENIED GI UPSET OR NAUSEA. PRN PAIN MEDS PROVIDED PER ORDER. PATIENT REPOSITIONED FOR COMFORT. COLLEEN SITE LEAKING; GAUZE CHANGED. COLLEEN EMPTIED FOR 35MLS SEROSANG DRAINAGE WITH SMALL CLOT FORMATION. NG TUBE DRAINING YELLOW OUTPUT AT THIS TIME. PATIENT MAINTAIN Sp02 98-100% ON 1L NC; TITRATED TO ROOM AIR. LUNG SOUNDS ARE CLEAR. PATIENT HAS A STRONG COUGH. ABD IS SOFT, TENDER WITH HYPOACTIVE BOWEL SOUNDS. MIDLINE INCISION IS WELL APPROXIMATED AND OPEN TO AIR. LOMAS EMPTIED AT THIS TIME; OUTPUT QS THROUGHOUT SHIFT. PATIENT DENIED OTHER NEEDS AT THIS TIME. CALL LIGHT IN REACH. AT BEDSIDE.
[2024-07-16 05:42] LABS: BASOPHILS 0.6 % (0-2); HEMATOCRIT 24.7 % (35.0-50.0); HEMOGLOBIN 8.5 g/dL (12.0-18.0); LYMPHOCYTES 12.6 % (24-44); MCH 31.1 (27-36); MCHC 34.5 g/dl (30-36); MCV 90.1 fl (81-99); MONOCYTES 4.9 % (0-12); NEUTROPHILS 81.9 % (39-80); PLATELET COUNT 148 K/uL (140-440); RBC 2.74 M/ul (4.3-5.7); RDW 15.5 (10.5-15.0)
[2024-07-16 05:54] LABS: ANION GAP 11.7 (7-21); BUN/CREATININE RATIO 22.58 (6.0-28.6); CALCIUM 7.9 mg/dL (8.5-10.1); CREATININE, SERUM 0.93 mg/dL (0.55-1.02); MAGNESIUM 1.9 mg/dL (1.8-2.4); PHOSPHORUS, INORGANIC 2.7 mg/dL (2.5-4.9); POTASSIUM 3.7 mmol/L (3.5-5.1)
[2024-07-16 06:36] LABS: ABO O; ANTIBODY SCREEN NEGATIVE; RH POSITIVE
[2024-07-16] MEDS ORDERED: LACTATED RINGER'S 1,000 ML IV SCH (08:00)
[2024-07-16] MEDS ORDERED: HYDROmorphone HCL 1 MG/ML SYR IV PRN (10:00)
[2024-07-16 10:27] LABS: IS CROSSMATCH COMPATIBLE
--- NOTE | 2024-07-16 10:33 | NUR ---
PHYSICAL THERAPY IN TO SEE PT
--- NOTE | 2024-07-16 11:29 | NUR ---
PT WORKED WITH PHYSICAL THERAPY IN BED, NOT VERY EAGER TO MOVE HERSELF IN BED. PT WAS INC OF BLACK STOOL, TURNED WITH ASSIST OF RNS AND PHYSICAL THERAPY TO BE CLEANED UP. PT THEN ASKED IF SHE COULD BE DONE WITH PHYSICAL THERAPY FOR THE DAY AND THERAPIST AGREES. PT THEN MOVED TO CHAIR USING ANDI LIFT. REMAINS IN ROOM, HELPING PT WITH BRUSHING HER HAIR. CALL LIGHT IN REACH.
--- NOTE | 2024-07-16 11:45 | NUR ---
PT CRYING AND EMOTIONAL, 2MG IV ATIVAN GIVEN.
--- NOTE | 2024-07-16 13:15 | NUR ---
PT SAT UP IN CHAIR FOR TWO HOURS, INITIALLY WAS NOT WILLING TO STAY IN CHAIR BUT PLAN WAS MADE TO STAY IN CHAIR UNTIL 1300 AND SHE WENT ALONG WITH IT. TRANSFERRED BACK TO BED USING ANDI LIFT. PT WAS GIVEN 1MG IV DILAUDID FOR PAIN. PT IS EMOTIONAL TODAY WITH FREQUENT CRYING TO AND STAFF.
--- NOTE | 2024-07-16 16:00 | NUR ---
PT CALLS TO STATE SHE IS INC STOOL, BLACK STOOL CLEANED UP, LOMAS CARE DONE, PT REPOSITIONED. NO FURTHER REQUESTS.
--- NOTE | 2024-07-16 17:55 | NUR ---
PT CALLS TO ASK FOR PAIN MEDICATION, 1MG IV DILAUDID GIVEN. NIECE IN TO VISIT PT.
--- NOTE | 2024-07-16 18:30 | NUR ---
PT CALLS TO STATE "MY NOSE WAS ITCHY AND I PULLED THE TUBE OUT". NGT FOUND TO BE DISLODGED ABOUT 20 CM- NGT REPLACED AND CHEST XRAY DONE FOR VERIFICATION.
--- NOTE | 2024-07-16 19:30 | NUR ---
SHIFT REPORT RECEIVED. PATIENT RESTING IN BED. CALL LIGHT IN REACH.
--- NOTE | 2024-07-16 19:34 | NUR ---
DR OLSON UPDATED ON CHEST XRAY REPORT FOR NGT PLACEMENT, NO NEW ORDERS.
--- NOTE | 2024-07-16 19:55 | NUR ---
PATIENT PROVIDED PRN PAIN MEDS FOR PAIN 8/10 DOWN HER MIDLINE ABD. PATIENT IS RESTING IN BED. DENIED GI UPSET OR OTHER CONCERNS. NG TUBE IN PLACE. VS STABLE. PATIENT DENIED OTHER NEEDS. CALL LIGHT IN REACH.
--- NOTE | 2024-07-16 21:30 | NUR ---
PATIENT CONTINUES TO REPORT 8/10 PAIN IN HER ABD. ABD IS SOFT, BOWEL SOUNDS HYPOACTIVE. DENIED NAUSEA. COLLEEN DRAINING SEROSANG DRAINAGE. VS STABLE. PATIENT PROVIDED PRN PAIN MEDS. ASSISTED TO REPOSITION. ICE PACK APPLIED TO ABD. PATIENT ENOCURAGED TO REST. LIGHTS DIMMED. AT BEDSIDE. CALL LIGHT IN REACH.
--- NOTE | 2024-07-16 22:56 | NUR ---
PATIENT RESTING, EYES CLOSED. VS STABLE. NG TUBE IN PLACE. ALLOWED PATIENT TO REST. CALL LIGHT IN REACH.
--- NOTE | 2024-07-16 23:45 | NUR ---
PATIENT ATTEMPTED TO HAVE BM ON BEDPAN. PATIENT ABLE TO ASSIST IN ROLLING FROM SIDE TO SIDE WITH SOME HELP. PATIENT REPORTS PAIN WITH MOVEMENT BUT AT REST IN COMFORTABLE. PATIENT DID NOT HAVE A BM AT THIS TIME. REPOSITIONED PATIENT FOR COMFORT. VS STABLE. PATIENT DENIED FURTHER NEEDS. CALL LIGHT IN REACH.
[2024-07-17] VITALS (13 sets, daily range): BP systolic 108–141; BP diastolic 52–73
--- NOTE | 2024-07-17 02:40 | NUR ---
PATIENT INCONTINENT OF LIQUID BLACK STOOL. PATIENT CLEANED AND NEW ATTEND PLACED. PATIENT REPORTS PAIN 8/10. PRN PAIN MEDS PROVIDED. ACCU CHECK DONE PER ORDER; NO COVERAGE NEEDED. PATIENT POSITIONED FOR COMFORT IN BED. DENIED OTHER NEEDS. CALL LIGHT IN REACH.
--- NOTE | 2024-07-17 03:45 | NUR ---
PATIENT RESTING IN BED. EYES CLOSED. VS STABLE. NG TUBE IN PLACE. ALLOWED PATIENT TO REST. CALL LIGHT IN REACH.
[2024-07-17 05:10] LABS: BASOPHILS 0.4 % (0-2); EOSINOPHILS 2.2 % (0-6); HEMATOCRIT 23.7 % (35.0-50.0); HEMOGLOBIN 8.1 g/dL (12.0-18.0); LYMPHOCYTES 12.6 % (24-44); MCH 30.6 (27-36); MCV 90.1 fl (81-99); MONOCYTES 3.5 % (0-12); NEUTROPHILS 81.3 % (39-80); PLATELET COUNT 206 K/uL (140-440); RBC 2.63 M/ul (4.3-5.7); RDW 15.3 (10.5-15.0)
--- NOTE | 2024-07-17 05:15 | NUR ---
MORNING LABS DRAWN FROM CENTRAL LINE PER PROTOCOL. PATIENT RESTING IN BED. ALERT AND CALM. DENIED ANY CONCERNS AT THIS TIME. VS STABLE. BG TUBE IN PLACE. URINE OUTPUT QS. FAMILY AT BEDSIDE.
[2024-07-17 05:31] LABS: ANION GAP 13.7 (7-21); BUN/CREATININE RATIO 16.86 (6.0-28.6); CALCIUM 8.2 mg/dL (8.5-10.1); CREATININE, SERUM 0.83 mg/dL (0.55-1.02); MAGNESIUM 1.6 mg/dL (1.8-2.4); PHOSPHORUS, INORGANIC 3.3 mg/dL (2.5-4.9); POTASSIUM 3.7 mmol/L (3.5-5.1)
--- NOTE | 2024-07-17 06:31 | NUR ---
PATIENT REPOSITIONED FOR COMFORT. LOMAS EMPTIED; URINE NOTED TO BE HANNA COLORED. COLLEEN EMPTIED FOR SMALL AMOUNT OF SEROSANG DRAINAGE. NG TUBE IN PLACE, CONNECTED TO LIWS. PATIENT DENIED ANY NEEDS OR CONCERNS. CALL LIGHT IN REACH.
[2024-07-17] MEDS ORDERED: MAGNESIUM SULFATE 2 GM/50 ML BAG IV ONE (06:45)
--- NOTE | 2024-07-17 07:30 | NUR ---
REPORT RECEIVED FROM HANK BISHOP.
--- NOTE | 2024-07-17 07:30 | NUR ---
PT CALLS, IS WONDERING IF SHE HAD A BOWEL MOVEMENT, ATTENDS CLEAN. NO OTHER REQUESTS.
--- NOTE | 2024-07-17 08:30 | NUR ---
IN TO DO ASSESSMENT, PT INC STOOL, CLEANED UP AND REPOSITIONED. NGT REMAINS IN PLACED DRAINING BROWN/YELLOW LIQUID. COLLEEN DRAINING S/S FLUID, GAUZE DRESSING REPLACED.
[2024-07-17] MEDS ORDERED: DEXTROSE 5% 1,000 ML IV SCH (09:00)
--- NOTE | 2024-07-17 09:15 | NUR ---
PT CALLS TO STATE SHE HAS BEEN INC STOOL AGAIN. ATTENDS CHANGED, ALEX CARE DOWN AND PT ASSISTED TO SIT UP AT EDGE OF BED AND THEN TO USE TAMMIE STEADY TO GET IN RECLINER. PT TAKING MUCH ENCOURAGEMENT TO GET HER TO MOVE HERSELF AND TO SIT UP IN CHAIR.
--- NOTE | 2024-07-17 11:15 | NUR ---
PT WAS IN CHAIR APPROX 15 MINUTES THEN STATES SHE NEEDS TO HAVE BOWEL MOVMENT. PT WAS ASSITED TO BSC USING TAMMIE STEADY WHERE SHE SAT APPROX 15 MIN, HAD SMALL LIQUID BLACK STOOL AND THEN WAS PLACED BACK IN CHAIR WITH TAMMIE STEADY. SHE IS VERY RELUCTANT TO SIT UP IN CHAIR, CONT TO STATE SHE JUST WANTS TO GET BACK IN BED BUT IS WILLING TO DO SO WITH STAFF ENCOURAGEMENT. CALL LIGHT IN REACH AND IN ROOM.
--- NOTE | 2024-07-17 11:22 | NUR ---
PT CALLS TO SAY SHE IS UNCOMFORTABLE IN CHAIR. ASSISTED TO LAY CHAIR BACK AND SHE STATES SHE IS "COMFORTABLE FOR NOW". REMAINS IN ROOM.
--- NOTE | 2024-07-17 11:29 | NUR ---
HAT PACK PLACED ON BACK PER REQUEST, PT DOES REPORT RELIEF FROM BACK PAIN.
--- NOTE | 2024-07-17 11:39 | NUR ---
PT NOT AVAILABLE FOR VISIT. PROVIDED PRAYER.
--- NOTE | 2024-07-17 12:05 | NUR ---
PT CALLS TO ASK TO GET BACK IN BED, AGREES TO STAY UP UNTIL 1230.
--- NOTE | 2024-07-17 13:16 | NUR ---
PT SAT IN CHAIR UNTIL 1230, THEN UP TO BSC WITH TAMMIE STEADY AND THEN BACK TO BED PER REQUEST. PT DID VOID INTO BSC, 300ML STOOL/URINE MIX. PT AWAKE IN BED NOW, ANTICIPATING SOME VISITORS, NO REQUESTS AT THIS TIME.
--- NOTE | 2024-07-17 13:44 | NUR ---
PT CALLS TO ASK FOR HEAT PACK AND PAIN MEDICATION. HEAT PACK PROVIDED FOR BACK AND 1MG IV DILAUDID GIVEN.
--- NOTE | 2024-07-17 14:30 | NUR ---
In to see patient this afternoon, Mendoza is oriented to person, place, and time. Mendoza states that she lives at home with her , her 90 year old mother also lives in the home with Mendoza and her . Mendoza's niece is the ful-time caregiver for her mother at 40 hours per week. Mendoza states that she lives in a manufactured home with a ramp. There are no stairs in the house but there is a thresh hold to get in and out of the doorway. Mendoza denies concnerns about returning home on discharge, stating "I have the most loving family you could ever ask for." Mendoza also answers that she will have all the help she neds when she is discharged to home. Mendoza denies food insecurities, she also states that their are finances to cover heat, utilities, prescriptions, etc. Denying financial concerns to meet her needs at discharge. Mendoza feels that her care has been phenominal while here in the hospital.
--- NOTE | 2024-07-17 15:58 | NUR ---
CALLED THIS RN TO DISCUSS PATIENT IVF INTAKE, AND TO ORDER BMP STAT TO MONITOR SODIUM LEVELS. BLOOD IS SENT AT THIS TIME TO LAB.
[2024-07-17 16:14] LABS: ANION GAP 11.3 (7-21); BUN/CREATININE RATIO 15.78 (6.0-28.6); CALCIUM 8.4 mg/dL (8.5-10.1); CREATININE, SERUM 0.76 mg/dL (0.55-1.02); POTASSIUM 3.3 mmol/L (3.5-5.1)
--- NOTE | 2024-07-17 16:34 | NUR ---
CALLED [facility] BMP RESULTS TO DR MARCOS, ORDER GIVEN TO STOP D5W AND START LR 100ML/HR, IVF SWITCHED. PT AWAKE IN BED, DENIES NEEDS AT THIS TIME.
[2024-07-17] MEDS ORDERED: POTASSIUM CHLORIDE 40 MEQ in DEXTROSE 5% 250 ML IV ONE (16:45)
--- NOTE | 2024-07-17 18:15 | NUR ---
PT INC SMALL LIQUID BLACK STOOL, ALEX CARE DONE, ATTENDS CHANGED AND PT REPOSITIONED. KCL REPLACEMENT STARTED. PT REQUESTS PAIN MEDICATION, 1MG IV DILAUDID GIVEN. MEHUL AT BEDSIDE.
[2024-07-17] MEDS ORDERED: LACTATED RINGER'S 1,000 ML IV SCH (19:00)
--- NOTE | 2024-07-17 20:17 | NUR ---
Report received from Elva BISHOP. Patient resting in bed, A+O. NGT in place to MILTON. Ayla draining concentrated urine. IVF infusing WNL. Patient denies needs at this time. Call light in reach. Will continue plan of care.
--- NOTE | 2024-07-17 21:20 | NUR ---
Scheduled medications administered and assessment complete. Patient resting in bed A+O. No SS insulin required. Central line WNL. IVF and IV K infusing WNL. NGT to LIWS, bright yellow drainage noted. Purewick in place. COLLEEN drain assessed, WNL. Dressing to site changed as saturated with serous fluid. Midline incision C/D/I with armand. Pt on RA. Afebrile. Repositioned in bed for comfort. Pt c/o pain to knees, ABD and back, PRN dilaudid administered. No further needs at this time. at bedside and attentive to patient. Call light in reach.
--- NOTE | 2024-07-17 22:16 | NUR ---
Moved patient to room 126. Patient in stable condition with no needs at this time. All personal belongings with patient. Andrea at bedside. Call light in reach.
--- NOTE | 2024-07-17 23:05 | NUR ---
Patient heard from nurses station calling out for help. This RN enters room and patient states "I'm too hot". Temp checked, oral 98.0. Blankets removed and cool cloth to forehead. Pt has call light in her hand. When asked about pain patient states has 9/10 ABD pain. 1mg dilaudid administered. Pt denies further needs. Call light in hand.
[2024-07-18] VITALS (11 sets, daily range): BP systolic 103–149; BP diastolic 62–118
--- NOTE | 2024-07-18 00:05 | NUR ---
Call light answered, patient continues to c/o "being too hot", cool cloths reapplied and patient assessed for needs. Patient states feeling high levels of anxiety, offered PRN ativan which patient readily accepts. Administered 2mg PRN IV, see EMAR. Pt repositioned in bed with pillows. States no further needs at this time. Call light in reach.
--- NOTE | 2024-07-18 01:30 | NUR ---
Call light answered, patient states uncomfortable in bed, needing respositioned, and also having 9/10 ABD pain. 1mg IV dilaudid administered for the pain. Pt states no further needs.
--- NOTE | 2024-07-18 01:44 | NUR ---
PATIENT IS RESTING IN BED WITH EYES CLOSED, RR 12. NAD NOTED. IV INFUSING PER ORDER. CALL LIGHT IN REACH.
[2024-07-18 05:47] LABS: BASOPHILS 0.7 % (0-2); EOSINOPHILS 4.4 % (0-6); HEMOGLOBIN 8.3 g/dL (12.0-18.0); LYMPHOCYTES 11.1 % (24-44); MCH 31.1 (27-36); MCHC 34.5 g/dl (30-36); MONOCYTES 2.8 % (0-12); PLATELET COUNT 258 K/uL (140-440); RBC 2.67 M/ul (4.3-5.7); RDW 15.4 (10.5-15.0)
[2024-07-18 06:05] LABS: ALBUMIN/GLOBULIN RATIO 0.67 (1.1-2.4); ANION GAP 14.8 (7-21); BILIRUBIN, TOTAL 0.6 ng/dL (0.2-1.0); BUN/CREATININE RATIO 12.19 (6.0-28.6); CALCIUM 8.2 mg/dL (8.5-10.1); CREATININE, SERUM 0.82 mg/dL (0.55-1.02); MAGNESIUM 1.6 mg/dL (1.8-2.4); PHOSPHORUS, INORGANIC 2.8 mg/dL (2.5-4.9); POTASSIUM 3.8 mmol/L (3.5-5.1)
--- NOTE | 2024-07-18 06:09 | NUR ---
This RN in room for lab draw. Pt requests pain medication, 1mg IV dilaudid administered per order. Labs drawn from central line, medial lumen, as proximal and distal lumens flush well but do not have blood return at this time. Attempted patient maneuvering and position changes, pulsatile flush with NS to both lumens, traction applied over dressing with no success. Patient has obese body habitus/enlarged neck anatomy. Patient had incontient void in bed, soaked through sheets and brief, full linen change complete with new purewick applied and dry attends. Clean gown in place. COLLEEN site dressing saturated with serous fluid, dressing changed. NGT to LIWS. Pt positioned with pillows for comfort. Pt states no further needs at this time, call light in reach
[2024-07-18] MEDS ORDERED: MAGNESIUM SULFATE 2 GM/50 ML BAG IV ONE ×2 (06:45→08:15)
--- NOTE | 2024-07-18 07:17 | NUR ---
Dr Kennedy updated regarding central line, no concerns at this time, states to be expected with patient's anatomy and frequent use.
--- NOTE | 2024-07-18 08:00 | NUR ---
REPORT RECEIVED FROM NIGHT RN - PT RESTING IN BED AWAKE, APPEARS COMFORTABLE. STATES SHE NEEDS TO VOID, PURWIK IN PLACE. PT FINISHED CUP OF ICE PROVIDED BY REFERRAL CLERK AND REQUESTS MORE. FLUID RESTRICTION IN PLACE AND EDUCATION PROVIDED ON AMOUNTS AND RATIONING, REASON FOR GOING SLOW. CALL LIGHT IN REACH.
--- NOTE | 2024-07-18 09:30 | NUR ---
AM ASSESSMENT COMPLETE - PT IN GOOD SPIRITS TO TAKE OUT NGT. TOLERATED REMOVAL WITHOUT DIFFICULTY. PT EDUCATED ON CLEAR LIQ DIET AND RESTRICTION, CAUTIONED TAKING IT SLOW. ACTIVE BT, ABD SOFT AND MIDLINE INCISION CLEAN DRY AND WELL APPROXIMATED. NO STOOL YET THIS SHIFT.
[2024-07-18] MEDS ORDERED: ALTEPLASE 2 MG/2 ML VIAL IV SCH (10:30)
--- NOTE | 2024-07-18 11:00 | NUR ---
PRN DILAUDID ADMINISTERED PER PT REQUEST FOR 8/10 PAIN IN HER ABD. ALTEPLASE ADMINISTERED TO WHITE AND BROWN LUMENS AFTER UNSUCESSFUL TROUBLE SHOOTING FLUSH/POSISTIONING UNABLE TO DRAW BACK BLOOD. AT BEDSIDE, ALL QUESTIONS ANSWERED.
--- NOTE | 2024-07-18 12:46 | NUR ---
PT UP TO CHAIR WITH PHYSICAL THERAPY USING SARASTEADY DEVICE. HR ELVATED WITH PROLONGED STANDING BUT RECOVERED QUICKLY ON MONITOR, RESTING RATE 110'S AT THIS TIME. PT PROVIDED BROTH FOR LUNCH ALLOTMENT OF 200ML LIQUIDS. AT SIDE HELPING APPROPRIATELY WITH CARES.
--- NOTE | 2024-07-18 13:07 | NUR ---
ALERT AND ORIENTED, UP IN RECLINER. DISCUSSED PT RECOMMENDING SNF. PATIENT DOES NOT WANT TO GO TO A SNF. STATES SHE HAS PLENTY OF HELP AT HOME AND ALREADY DOES OUTPATIENT PT AT [facility] OUTPATIENT PT. MEHUL, SIGNIFICANT OTHER, IN ROOM WELL. STATES HE IS ABLE TO CARE FOR PATIENT AND HE IS OK WITH TAKING HER HOME AND CONTINUING TO CARE FOR HER. BOTH DENY CM NEEDS AT THIS TIME. INFORMED WILL CONTINUE TO DISCUSS DC PLAN WITH PATIENT TO ENSURE NOTHING CHANGES. VERBALIZE UNDERSTANDING. CURRENT PLAN FOR DC IS RETURN TO HOME AND CONTINUED OUTPATIENT PT.
[2024-07-18 13:29] LABS: BUN/CREATININE RATIO 8.98 (6.0-28.6); CALCIUM 8.3 mg/dL (8.5-10.1); CREATININE, SERUM 0.89 mg/dL (0.55-1.02)
--- NOTE | 2024-07-18 13:51 | NUR ---
DR. MARCOS CALLED FOR RESULTS OF BMP AT 1200. REVIEWED RESULTED AND ORDER REC'D TO INCREASE D5 TO 125 ML/HR AND HAVE A REPEAT BMP DRAWN AT 1800. PT REMAINS UP IN CHAIR AT THIS TIME. PT'S MEHUL IN ROOM WELL.
--- NOTE | 2024-07-18 14:03 | NUR ---
PT REQUESTING PAIN MEDS FOR 10/10 PAIN WHILE UP IN CHAIR. PT WOULD LIKE TO MOVE BACK TO BED ONCE THE MEDS HAVE BEGAN WORKING
--- NOTE | 2024-07-18 15:00 | NUR ---
PT ASSISSTED BACK TO BED USING SARASTEADY DEVICE. PT REQUIRES ENCOURAGMENT AND CUEING TO STAY CALM AND FOCUS ON CAPABILITIES. STANDING WEIGHT OBTAINED. NEW PURWIK PLACED, CLEAN ATTENDS AND BED LINEN ALSO PLACED WITH WAFFLE MATTRESS ON BED. TOLERATING CLEAR LIQS WITHOUT NAUSEA OR INCREASED PAIN - CUP OF ICE CHIPS PROVIDED FOR FREE WATER ALLOWANCE. COLLEEN DRESSING CHANGED, DRAINING SEROSANG FLUID EMPTIED FOR 50ML. AT BEDSIDE.
--- NOTE | 2024-07-18 18:15 | NUR ---
CENTRAL LINE DRESSING CHANGED- PT TOLERATED WELL. PT REPOSISTIONED WITH MINIMAL ASSISTANCE BY RN, ENCOURAGED SELF STRENGTH.
[2024-07-18 18:36] LABS: ANION GAP 12.5 (7-21); POTASSIUM 3.5 mmol/L (3.5-5.1)
[2024-07-18 18:49] LABS: CREATININE, SERUM 0.8 mg/dL (0.55-1.02)
[2024-07-18] MEDS ORDERED: LACTATED RINGER'S 1,000 ML IV SCH (19:00)
--- NOTE | 2024-07-18 19:05 | NUR ---
Report received from Tamie BISHOP. Patient resting in bed on RA with no needs reported at this time. Call light in reach, will continue plan of care.
--- NOTE | 2024-07-18 21:30 | NUR ---
Patient states that had an incontinent bowel movement and needs assistance being cleaned up. This RN and Kanwal RN in to assist patient. Large incontinent BM, dark and tarry but no lianna blood noted. Noted central line dressing to be bleeding and needing immediate dressing change, sterile dressing complete with no continued bleeding noted. Linen change complete along with gown and chux. New purewick in place and dry attends. Repositioned in bed for comfort with pillows. SCDs in place.
--- NOTE | 2024-07-18 22:56 | NUR ---
PT REPORTS 8/10 ABD PAIN. PRN PAIN MED PROVIDED IN PROXIMAL LINE. FLUSHED WELL, GOOD BLOOD RETURN. WARM BLANKETS PROVIDED. PT STATES NO OTHER NEEDS AT THIS TIME. CALL LIGHT IN REACH.
[2024-07-19] VITALS (10 sets, daily range): BP systolic 123–140; BP diastolic 53–77
--- NOTE | 2024-07-19 00:46 | NUR ---
In to round, patient requests to have a break from SCDs, and requests PRN pain medication for 9/10 generalized pain. repositioned in bed as well as 1mg dilaudid administered, ice pack to central line site as patient says uncomfortable at this time however tolerable. Pt requests cosmetic hair removal assistance from this RN, assisted. No further needs
--- NOTE | 2024-07-19 02:25 | NUR ---
pt ARRIVED TO THE FLOOR VIA STRETCHER. REPORT RECIEVED FROM KELLY BISHOP. pt REQUESTS PRN PAIN MEDS. pt RESPOSITIONED IN THE BED. NEW DRAW SHEET AND CHUCKS PLACED UNDER pt. COLLEEN DRAIN EMPTIED AND DRESSING AROUND DRAIN REPLACED. MIDLINE INCISION CDI WITH MARK ANTHONY INTACT. pt DENIES ANY OTHER NEEDS AT THIS TIME. CALL LIGHT WITHIN REACH.
--- NOTE | 2024-07-19 03:33 | NUR ---
PRN PAIN MEDS ADMINISTERED. pt DENIES ANY OTHER NEEDS AT THIS TIME. CALL LIGHT WITHIN REACH
--- NOTE | 2024-07-19 05:10 | NUR ---
pt C/O 03/11 PAIN. PRN PAIN MEDS ADMINISTERED. pt REPOSITIONED IN THE BED. pt DENIES ANY OTHER NEEDS AT THIS TIME. CALL LIGHT WITHIN REACH.
[2024-07-19 05:26] LABS: BASOPHILS 0.5 % (0-2); EOSINOPHILS 6.1 % (0-6); HEMATOCRIT 23.7 % (35.0-50.0); HEMOGLOBIN 8.1 g/dL (12.0-18.0); MCH 30.7 (27-36); MCHC 34.2 g/dl (30-36); MCV 89.8 fl (81-99); MONOCYTES 3.3 % (0-12); NEUTROPHILS 75.1 % (39-80); PLATELET COUNT 245 K/uL (140-440); RBC 2.64 M/ul (4.3-5.7); RDW 15.2 (10.5-15.0)
--- NOTE | 2024-07-19 07:25 | NUR ---
REPORT RECEIVED FROM EDNA MITCHELL. PT RESTING IN BED, AWAKE AND ALERT. PTs PRESENT IN ROOM. PT HAS NO REQUESTS AT THIS TIME, CALL LIGHT IN REACH.
[2024-07-19] MEDS ORDERED: Insulin Regular, Human 100 UNIT/ML ML SUB-Q SCH (08:00)
[2024-07-19] MEDS ORDERED: IBLOOD GLUCOSE TEST STRIP 1 EA TEST VI SCH (08:00)
--- NOTE | 2024-07-19 08:31 | NUR ---
PATIENT IN BED AT THIS TIME. CLINICAL REVIEW NURSE WENT INTO PATIENTS ROOM FOR HOURLY ROUNDS. CALL LIGHT WITHIN REACH, NO FURTHER NEEDS AT THIS TIME.
--- NOTE | 2024-07-19 09:45 | NUR ---
MEDICATION ADMINISTERED, SEE MAR. ASSESSMENT COMPLETE. PT IS IN BED AT THIS TIME, IS PRESENT IN THE ROOM. PT IS COMPLAINING OF ABDOMINAL PAIN SHE SAYS IS RELATED TO DRINKING COFFEE THIS MORNING. NO NAUSEA REPORTED. PTs COLLEEN SITE DRESSING IS SATURATED WITH SEROSANGUINOUS FLUID, DRESSINGS ARE CHANGED AT THIS TIME. COLLEEN EMPTIED AND MEASURES 45ML OF CLEAR, SEROSANGUINOUS OUTPUT. CALL LIGHT IN REACH, NO OTHER REQUESTS AT THIS TIME.
--- NOTE | 2024-07-19 09:47 | NUR ---
IN BED. ALERT AND ORIENTED, MEHUL, SPOUSE IN ROOM. STATES SHE IS CHANGED TO FULL LIQUIDS AND FAMILY IS BRINING HER WHEELCHAIR IN SO SHE CAN START WORKING ON PT WITH HER OWN WHEELCHAIR. CONTINUES TO DENY CM NEEDS AT THIS TIME.
--- NOTE | 2024-07-19 10:45 | NUR ---
PATIENT IN BED AT THIS TIME. PALLIATIVE MEDICINE PHYSICIAN CHARTED VITALS AND I&O'S, PALLIATIVE MEDICINE PHYSICIAN ALSO CHANGED PATIENTS PUREWICK. PATIENT STATED THAT SHE THOUGHT SHE HAD A BOWEL MOVEMENT BUT BRIEF WAS CLEAN AND PATIENT HAD JUST PASSED GAS. CALL LIGHT WITHIN REACH, NO FURTHER NEEDS AT THIS TIME.
--- NOTE | 2024-07-19 11:10 | NUR ---
PT TRIPLE LUMEN IJ FLUSHES WELL WITH 20ML NS IN ALL 3 PORTS BUT BLOOD RETURN NOTED ONLY TO DISTAL PORT. CHARGE NURSE JR MADE AWARE, ULTRASOUND IV CURRENTLY IN DISCUSSION.
--- NOTE | 2024-07-19 11:20 | NUR ---
VISITED DURING SPIRITUAL CARE ROUNDS. PT SUPPORTED BY AND BROTHER IN ROOM. NO IMMEDIATE NEEDS. BULB GRADER PROVIDED SUPPORTIVE PRESENCE, HOSPITALITY, PRAYER, FACILITATED INTERACTION WITH THERAPY ANIMAL. PT AND FAMILY EXPRESSED GRATITUDE.
--- NOTE | 2024-07-19 11:21 | NUR ---
SPIRITUAL CARE KATHY PRESENT IN PTs ROOM WITH THERAPY DOG DIAZ.
--- NOTE | 2024-07-19 12:07 | NUR ---
UR CLINICAL AND CONCURRENT REVIEW: [facility] CR[facility]IA FOR GI BLEED, GENERAL SURG GRG AND HEMOTOLOGY GRG. GR STAGE 2 NOT MET; VIARIANCE COMPLETED INPT 07/13/24 ORDER MATCHES REG AWAITING RECORDS REQUEST DISCHARGE TO HOME WHEN STABLE 07/21/24
--- NOTE | 2024-07-19 13:47 | NUR ---
PT HAS BOWEL INCONTINENCE IN BED, ASSISTED TO CHANGE WITH THIS RN AND PRASANNA CROOK. PT WOULD LIKE TO TRY AND SIT IN HER WHEELCHAIR THAT WAS BROUGHT FROM HOME. PRASANNA CROOK AND THIS RN ATTEMPT TO ASSIST PT IN TRANSFERING TO HER WHEELCHAIR, PT IS UNABLE TO BEAR WEIGHT ON HER ANKLES AND MOVE TO CHAIR. PT IS ASSITED BACK INTO BED, ALEX-CARE PROVIDED, FRESH LINEN AND BRIEF PROVIDED. COLLEEN DRAIN INSERTION SITE HAS SEROSANGUINOUS SATURATED DRESSING, CHANGED AT THIS TIME. PT HAS NO FURTHER NEEDS AT THIS TIME, CALL LIGHT IN REACH.
--- NOTE | 2024-07-19 14:37 | NUR ---
PATIENT IN BED AT THIS TIME. ELECTRO PLATER CHARTED VITALS AND I&O'S. CN ALSO CHANGED PATIENTS PUREWICL @ 1350. CALL LIGHT WITHIN REACH, NO FURTHER NEEDS AT THIS TIME.
--- NOTE | 2024-07-19 15:25 | NUR ---
SECOND ASSESSMENT COMPLETE. PRN PAIN MEDICATION ADMINSTERED, SEE MAR. PT IJ REMOVED AT THIS TIME, PT TOLERATES WELL. FOUR SUTURES REMOVED AND ALLEVYN WITH BACITRACIN APPLIED TO SITE FOR OCCLUSIVE DRESSING. PRESSURE APPLIED FOR FIVE MINUTES WITH NO BLEEDING NOTED. PT CONTINUES TO LAY FLAT AT THIS TIME. PT REPORTS HER PAIN IS A 9/10 IN HER INCISION. MIDLINE INCISION IS DRY AND INTACT, OPEN TO AIR, NO DRAINAGE. COLLEEN DRAIN HAS SEROSANGUINOUS FLUID, DRAINED AND SUCTION RE-APPLIED. COLLEEN DRAIN DRESSING STILL CLEAN AND INTACT AT THIS TIME. BOWEL TONES ACTIVE IN ALL FOUR QUADRANTS, PT REPORTS NO NAUSEA. IV IN R FOREARM FLUSHES WNL. PT HAS NO OTHER REQUESTS AT THIS TIME, CALL LIGHT IN REACH.
--- NOTE | 2024-07-19 19:20 | NUR ---
REPORT RECEIVED FROM WENDY BISHOP. pt RESTING IN THE BED. pt REQUESTED A SHAWN AT THIS TIME. CALL LIGHT WITHIN REACH. NO OTHER NEEDS AT THIS TIME.
--- NOTE | 2024-07-19 20:11 | NUR ---
DEMENTIA PROGRAM DIRECTOR OBTAINED VITALS AND I&O. PT STATES SHE WOULD LIKE HER SCD OFF FOR A BIT. PT STATES NO FURTHER NEEDS AT THIS TIME CALL LIGHT WITHIN REACH.
[2024-07-19] MEDS ORDERED: GABAPENTIN 300 MG CAP PO SCH (21:00)
--- NOTE | 2024-07-19 21:40 | NUR ---
ASSESSMENT AND VITAL SIGNS DONE. pt C/O 05/11 PAIN. pt CRYING IN THE BED HOLDING HUSBANDS HAND. PRN AND SCHEDULED MEDS ADMINISTERED. PURE WICK PLACED. LINNEN CHANGED. MIDLINE INCISION CDI. MARK ANTHONY INTACT. COLLEEN DRAIN DRESSING CHANGED. WATER REFRESHED. pt DENIES ANY OTHER NEEDS AT THIS TIME. CALL LIGHT WITHIN REACH.
--- NOTE | 2024-07-19 23:05 | NUR ---
pt HR JUMPED UP TO 140. THIS RN WHEN INTO RM TO CHECK ON pt. pt WAS rolling over to talk to her . this rn told PT that her jump up and that we needed to check her VS. PT HR decreased and PT calmed down.
[2024-07-20] VITALS (10 sets, daily range): BP systolic 133–143; BP diastolic 62–85
--- NOTE | 2024-07-20 01:56 | NUR ---
THERMAL CUTTING TRACER MACHINE OPERATOR OBTAINED VITALS. NO NEW I&O AT THIS TIME. PT STATES NO NEEDS. CALL LIGHT WITHIN REACH.
--- NOTE | 2024-07-20 02:19 | NUR ---
BED ALARM ANSWERED. PT AT EDGE OF BED NEEDING TO USE BATHROOM. PRISON KEEPER 1PA WITH WALKER TO BATHROOM. PT VOIDED. PRISON KEEPER 1PA TO SINK FOR PT TO WASH HANDS. PT STATED THAT SHE WAS SARTING TO FEEL UNSTEADY AND "I HAVE NO BALANCE". PRISON KEEPER HAD PT SIT ON BSC AND CALLED FOR STAFF ASSIST. EDNA MCKINNEY IN ROOM. THIS PRISON KEEPER AND RN 2PA PT BACK TO BED WITH WALKER. PT BOOSTED IN BED. PT STATES NO FURTHER NEEDS AT THIS TIME. CALL LIGHT WITHIN REACH AND BED ALARM ON.
--- NOTE | 2024-07-20 04:37 | NUR ---
COMMERCIAL LENDING VICE PRESIDENT OBTAINED VITALS AND CHANGED TELE BATTERY. PT WOKE UP AND BEGAN CRYING. WHEN ASKED WHAT WAS WRONG SHE STATED "I DONT KNOW". PT THEN FELL BACK ASLEEP. PT CALL LIGHT WITHIN REACH AND IN ROOM.
--- NOTE | 2024-07-20 06:40 | NUR ---
DR. OLSON IN TO ASSESS pt. DR REMOVED COLLEEN DRAIN. AND PLACED NEW ORDER. pt DENIES ANY OTHER NEEDS AT THIS TIME. CALL LIGHT WITHIN REACH.
[2024-07-20] MEDS ORDERED: ACETAMINOPHEN 325 MG TAB PO PRN (06:45)
[2024-07-20] MEDS ORDERED: ACETAMINOPHEN 500 MG TAB PO PRN (06:45)
[2024-07-20 06:50] LABS: HEMATOCRIT 27.3 % (35.0-50.0); HEMOGLOBIN 9.1 g/dL (12.0-18.0); MCHC 33.5 g/dl (30-36); MCV 89.8 fl (81-99); PLATELET COUNT 267 K/uL (140-440); RBC 3.05 M/ul (4.3-5.7); RDW 14.7 (10.5-15.0)
[2024-07-20 07:03] LABS: ANION GAP 12.7 (7-21); BUN/CREATININE RATIO 6.34 (6.0-28.6); CALCIUM 8.1 mg/dL (8.5-10.1); CREATININE, SERUM 0.63 mg/dL (0.55-1.02); POTASSIUM 3.7 mmol/L (3.5-5.1)
--- NOTE | 2024-07-20 07:16 | NUR ---
CALL LIGHT ANSWERED. PT WANTED TO GET UP TO USE BATHROOM. LINER WORKER INFORMED PT THAT DUE TO HER HIGH HR WHEN GETTING UP PREVIOUSLY THAT IT WAS NOT SAFE AND OFFERED BEDPAN. PT ACCEPTED AND LINER WORKER PLACED PT ON BEDPAN. PT INSTRUCTED TO USE CALL LIGHT WHEN DONE. CALL LIGHT ANSWERED. PT DONE ON BEDPAN. PT DID NO HAVE A BM. BEDPAN REMOVED FROM UNDER PT. PT STATES NO FURTHER NEEDS AT THIS TIME. CALL LIGHT WITHIN REACH AND IN ROOM.
[2024-07-20 07:26] LABS: BASOPHILS, MANUAL DIFF 0; EOSINOPHILS, MANUAL DIFF 2; LYMPHOCYTES, MANUAL DIFF 20; MONOCYTES, MANUAL DIFF 2; NEUTROPHILS, MANUAL DIFF 76
--- NOTE | 2024-07-20 07:30 | NUR ---
REPORT RECEIVED FROM DENA BUENROSTRO. YARIEL MIMS PRESENT IN ROOM AT THIS TIME ASSISTING PT.
--- NOTE | 2024-07-20 09:53 | NUR ---
MEDICATIONS ADMINISTERED, SEE SEP. ASSESSMENT COMPLETE. PT ASSISTED OFF OF BED KO WITH THIS RN, PRASANNA CROOK AND SRT KATHIE. ALEX-CARE PROVIDED, ALLEVYN ON SACRUM REMOVED AT THIS TIME D/T CONTAMINATE. GLUTEAL CLEFT HAS REDDENED AREA. OPEN AREA ALSO NOTED TO INNER L THIGH. BARRIER CREAM APPLIED AT THIS TIME, PTs SKIN IS REDDENED WHERE EVER THE ADHESIVE OF THE BANDAGE WAS PRESENT. PT REPOSITIONED IN BED AT THIS TIME, PILLOWS UNDER BILAT ARMS, RESTING QUIETLY. PT APPEARS WITHDRAWN THROUGHOUT ASSESSMENT AND ASSISTANCE. SHE REPORTS BEING UPSET WITH HER . DRESSING TO RLQ COLLEEN REMOVAL SITE IS SATURATED WITH SEROUS FLUID, GAUZE AND TAPE REMOVED AND REAPPLIED AT THIS TIME. ALLEVYN REMOVED FROM TOP OF BILAT FEET. BILAT SCABS CONTINUED TO BE NOTED. PT HAS REDDENED AREA ON R NECK WHERE HER IJ DRESSING WAS REMOVED. SHE REQUESTS AN ICE PACK FOR HER R NECK, SUPPLIED. PRN PAIN MEDICATION SUPPLIED FOR INCISIONAL PAIN RATED 8/10. PT PROVIDED WITH 200ML OF WATER IN HER CUP AND INFORMED OF MDs REQUEST SHE DRINK MORE. VOLUME GOALS AND TIMES WRITTEN ON PTs WHITE BOARD, PT VERBALIZES UNDERSTANDING. PT CLOSES HER EYES AND HAS NO OTHER REQUESTS AT THIS TIME. CALL LIGHT IN REACH.
--- NOTE | 2024-07-20 10:00 | NUR ---
PATIENT IN BED AT THIS TIME. RESIDENTIAL NURSE AND RN CHANGED PATIENTS BRIEF, CHUX, AND PATIENTS DRAW SHEETS. RESIDENTIAL NURSE ALSO CHARTED PATIENTS VITALS AND CHANGED HER PUREWICK. CALL LIGHT WITHIN REACH, NO FURTHER NEEDS AT THIS TIME.
--- NOTE | 2024-07-20 11:04 | NUR ---
Q2 orders for 200ml of water. Patient had almost finished the amount for 0930. Will be rechecked and refilled at 1130.
--- NOTE | 2024-07-20 11:24 | NUR ---
PT IS SITTING NAKED IN THE RECLINER, STATES SHE IS WAITING FOR HER TO BRING HER SOME OF HER CLOTHES FROM HOME. PT IS FEELING FRUSTRATED WITH HER SITUATION, TAKES SOME TIME TO DISCUSS HER CONCERNS AND FEELINGS. THERAPEUTIC LISTENING AND COMMUNICATION PROVIDED. PTs CALLS TO CLARIFY WHICH CLOTHES SHE WANTS, PT GETS FRUSTRATED WITH HER AND RAISES HER VOICE. THE CALL ENDS. PT HAS FINISHED HER 200ML AT THIS TIME, ANOTHER 200ML IS PROVIDED WELL WARM BLANKETS PT STATES SHE IS COLD WAITING FOR HER . PT HAS CALL LIGHT IN REACH, REPORTS SHE WILL CALL WHEN SHE HAS A SHIRT ON AGAIN SHE WOULD LIKE TO GET BACK INTO BED AT THAT TIME. NO OTHER NEEDS.
--- NOTE | 2024-07-20 11:53 | NUR ---
PATIENT IN PERSONAL WHEELCHAIR. VAMP MAKERMichelle BARONE RN TRANSFERED PATIENT FROM PATIENT FROM CHAIR TO PERSONAL WHEELCHAIR. RN STILL IN ROOM AT THIS TIME. CALL LIGHT WITHIN REACH, NO FURTHER NEEDS AT THIS TIME.
--- NOTE | 2024-07-20 11:57 | NUR ---
PT PROPELS HERSELF WITH HER FEET IN HER PERSONAL WHEELCHAIR INTO BATHROOM. SHE TRANSFERS WITH THIS RN AND PRASANNA CABRERA, USING BARS AND MINIMAL ASSIST. SMALL AMOUNT OF BOWEL NOTED IN BRIEF, ALSO INCONTINENCE. PTs COLLEEN SITE GAUZE HAS FALLEN OFF DURING TRANSFER PROCESS, NEW DRESSING APPLIED WITH TWO 4x4 GAUZES AND PAPER TAPE. PT REQUESTS PRIVACY AT THIS TIME, CALL CORD PROVIDED, PT VERBALIZES UNDERSTANDING OF USE.
--- NOTE | 2024-07-20 12:16 | NUR ---
PT TRANSFERS FROM TOILET TO PERSONAL WHEELCHAIR WITH 2PA. NEW ALLEVYN APPLIED TO SACRUM AT THIS TIME. PT TRANSFERS FROM PERSONAL WHEELCHAIR TO BED, ASSISTED TO SWING LEGS UP. PT HR NOTED TO INCREASE TO 140s DURING TRANSFERS. PT REPORTS SHE IS AWARE OF THIS AND CAN FEEL HER HR. DENIES DIZZINESS OR LIGHTHEADEDNESS HOWEVER. ALEX-CARE CARE AND NEW BRIEF PROVIDED. PT LUNCH ARRIVES. PT IN BED WITH HOB ELEVATED AND BEGINS EATING HER LUNCH. CALL LIGHT IN REACH. MEHUL PRESENT IN ROOM THROUGHOUT, THIS RN REQUIRED TO ASK TO PLEASE STEP ASIDE SEVERAL TIMES DURING TRANSFERS. NO FURTHER NEEDS AT THIS TIME.
--- NOTE | 2024-07-20 14:15 | NUR ---
In and spoke with Mendoza and her spouse. Discussed options for rehab. Pt does not want to go to a SNF. She has uses OP in the past, but pt is unable to leave her home without assist. She would qualify for . She and spouse would prefer HH to come in and work with pt a couple of times per week. She does not want a bathaid as he daughter showers her. I will update Dr. Feliz.
--- NOTE | 2024-07-20 14:40 | NUR ---
PRASANNA CABRERA PRESENT IN ROOM WITH PT AT THIS TIME.
--- NOTE | 2024-07-20 14:59 | NUR ---
PT ENCOURAGED TO FINISH HER 120ML REMAINING OF WATER FOR THIS TWO HOUR STRETCH. PT HAS EMESIS OF 250ML IMMEDIATELY AFTER, WATER AND CHICKEN. PT REPORTS NO NAUSEA AT THIS TIME. ATTEMPTED TO NOTIFY MD, NO ANSWER AT THIS TIME.
--- NOTE | 2024-07-20 15:29 | NUR ---
PT PROVIDED ICE PACK FOR PAIN AT CENTRAL LINE REMOVAL SITE. PT DENIES NAUSEA. ENCOURAGED TO SIP WATER IF DRINKING TOO MUCH AT ONCE IS MAKING HER NAUSEATED. DENIES FURTHER NEEDS. AT BEDSIDE, CALL LIGHT REACH.
--- NOTE | 2024-07-20 15:37 | NUR ---
DR OLSON NOTIFIED OF PTs EPISODE OF EMESIS. DR OLSON GIVES VERBAL ORDER VERIFIED VIA READBACK TO ADJUST PTs DIET TO SOFT AND BITE SIZED AT THIS TIME. DIETARY ALSO NOTIFIED.
--- NOTE | 2024-07-20 15:37 | NUR ---
Patient ate lunch and then puked into emesis bag. They did not drink 1330 fluids. BUILDING SUPPLIES SALESPERSON RETAIL and RNs pushed fluids. 1530 fluids refilled and given.
--- NOTE | 2024-07-20 15:49 | NUR ---
Patient refused water three times. EDNA Willett entered room to try again.
--- NOTE | 2024-07-20 16:14 | NUR ---
PT RESTING WITH EYES CLOSED, MOUTH OPEN, AUDIBLE SNORES. PT HAS HX OF SLEEP APNEA BUT DOES NOT USE CPAP. SECOND ASSESSMENT COMPLETE. PT MIDLINE INCISION UNCHANGED FROM THIS MORNING, DRY AND INTACT WITHOUT REDNESS OR WARMTH. COLLEEN DRAIN REMOVAL INCISION IN RLQ WITH TWO 4x4s IN PLACE WITH PAPER TAPE IS C/D/I. IV IN R FOREARM FLUSHES WNL. PT DOES NOT AWAKE THROUGHOUT EXAM. PTs MEHUL LEAVES AT THIS TIME. CALL LIGHT IN REACH.
--- NOTE | 2024-07-20 18:44 | NUR ---
PATIENT IN BED AT THIS TIME. 2 CNAS IN ROOM AT THIS TIME, PATIENT HAD VOIDED IN HER BRIEF. BOTH CNAS CHANGED PATIENTS BRIEF, PROVIDED FRESH LINENS AND FRESH GOWN. CALL LIGHT WITHIN REACH, NO FURTHER NEEDS AT THIS TIME.
--- NOTE | 2024-07-20 18:53 | NUR ---
BOTH CNAS CHANGED Dotflux @1845. CALL LIGHT WITHIN REACH, NO FURTHER NEEDS AT THIS TIME.
--- NOTE | 2024-07-20 18:55 | NUR ---
PT REPORTS PAIN 8/10 IN HER ABDOMEN AND LOW BACK. PRN PAIN MEDICATION ADMINISTERED, SEE MAR. PT REPORTS SHE ATE HALF A SANDWICH FOR DINNER, CURRENTLY EXPERIENCING NO NAUSEA. PT IS EMOTIONAL WHILE ON THE PHONE WITH HER , "HE IS HAVING [employer]IL[employer]GS FOR DINNER AND I CAN'T HAVE THAT ANYMORE!" AND BEGINS TO TEAR UP. DISCUSSED WITH PT HEALTHER ALTERNATIVES TO [employer]IL[employer], PT EXPRESSES INTEREST AT TRYING HEALTHIER CHOICES. PT BELCHING REGULARLY, PASSING GAS. NO OTHER NEEDS AT THIS TIME, CALL LIGHT IN REACH.
--- NOTE | 2024-07-20 18:56 | NUR ---
Patient reported being in pain. EDNA Gomez notified.
--- NOTE | 2024-07-20 19:29 | NUR ---
DIMMED LIGHTS IN ROOM PER PT REQUEST AND PROVIDED PT WITH A WARM BLANKET. PT PERSONAL BELONGINGS AND CALL LIGHT WITHIN REACH. PT STATED NO FURTHER NEEDS AT THIS TIME.
--- NOTE | 2024-07-20 19:29 | NUR ---
Pt report received from EDNA Rodriguez. Pt is resting supine in bed, A&O x4, call light in reach. LCTA. White board updated.
--- NOTE | 2024-07-20 19:42 | NUR ---
PRASANNA GAVE PT A HOT PACK FOR THE MIDDLE OF HER BACK. PRASANNA WRAPPED IT IN A PILLOW CASE AND EDUCATED PT THAT THE PACK COULD STILL BECOME TOO HOT BECAUSE SHE IS LAYING ON IT.
--- NOTE | 2024-07-20 19:49 | NUR ---
JUVENILE CORRECTIONS OFFICER GAVE PT KESHAWN.
--- NOTE | 2024-07-21 00:01 | NUR ---
CALL LIGHT ANSWERED. PT STATED THAT SHE NEEDED TO BE CHANGED BECAUSE SHE THINKS SHE HAD A BM. DRY DRUG WORKER CHECKED PT BRIEF, PT DID NOT HAVE A BM AND BRIEF WAS CLEAN BUT PT STILL REQUESTED TO BE CHANGED. DRY DRUG WORKER CHANGED PT BREIF, CHUCKS PAD, AND PUREWICK. PT THEN REQUESTED SOMETHING TO HELP HER SLEEP AND COMPLAINED THAT HER STOMACH HURT. RN NOTIFED. PT STATES NO FURTHER NEEDS AT THIS TIME. CALL LIGHT WITHIN REACH AND IN ROOM.
--- NOTE | 2024-07-21 00:30 | NUR ---
In with pt in response to "pill to help me sleep". Pt is resting supine in bed, awake, asleep on couch. Side rails up x4. Advised pt that there are no medications on her medication administration record that will help her "sleep". Advised pt that the next dose of tylenol is due around [id number] hours. Pt accepted offer for eye mask and ear plugs. Warm blanket and hot pack also provided. Call light in reach.
[2024-07-21 01:27] VITALS: BP 122/59
--- NOTE | 2024-07-21 02:20 | NUR ---
Pt resting with sleep mask on, ear plugs in, side rails up x4, call light in reach. on couch
--- NOTE | 2024-07-21 02:30 | NUR ---
CARE ASSUMED OF PT, REPORT RECEIVED FROM TWYLA BISHOP.
--- NOTE | 2024-07-21 03:46 | NUR ---
CALL LIGHT ANSWERED. PT STATED THAT SHE HAD A BM AND NEEDED CHANGED. PT HAD A LARGE BM. PT ABLE TO ROLL IN BED BY HERSELF. MANAGING EDITOR CHANGED PT BRIEF, CHUCKS PAD, PUREWICK, AND DRAW SHEET. PT ASKING FOR A TYLENOL. PRIMARY RN NOTIFED. PT STATES NO FURTHER NEEDS AT THIS TIME. CALL LIGHT WITHIN REACH AND IN ROOM.
--- NOTE | 2024-07-21 03:55 | NUR ---
PT ASKS FENCE POST DRIVER FOR TYLENOL, 1000MG PO TYLENOL GIVEN PER EMAR. PT HAS SOME QEUESTIONS REGARDING HER SURGERY, "WHAT ALL DID DR OLSON FIX IN THERE?" AND SHE IS WONDERING ABOUT HER OTHER ULCERS AND LAP BAND. QUESTIONS ANSEWRED. NO FURHTER REQUESTS.
--- NOTE | 2024-07-21 04:30 | NUR ---
PT RESTING WITH EYES CLOSED, RESP EVEN AND UNLABORED.
[2024-07-21 05:12] VITALS: BP 139/67
--- NOTE | 2024-07-21 05:12 | NUR ---
CHOKE SETTER OBTAINED VITALS AND I&O. PUREWICK CANNISTER EMPTIED. PT STATES NO NEEDS AT THIS TIME. CALL LIGHT WITHIN REACH.
[2024-07-21 05:49] LABS: BASOPHILS 0.7 % (0-2); EOSINOPHILS 5.8 % (0-6); HEMATOCRIT 24.9 % (35.0-50.0); HEMOGLOBIN 8.5 g/dL (12.0-18.0); LYMPHOCYTES 17.8 % (24-44); MCH 30.8 (27-36); MCHC 34.2 g/dl (30-36); MCV 90.1 fl (81-99); MONOCYTES 3.9 % (0-12); NEUTROPHILS 71.8 % (39-80); PLATELET COUNT 297 K/uL (140-440); RBC 2.76 M/ul (4.3-5.7)
[2024-07-21 06:05] LABS: ANION GAP 12.1 (7-21); BUN/CREATININE RATIO 7.14 (6.0-28.6); CALCIUM 8.1 mg/dL (8.5-10.1); CREATININE, SERUM 0.7 mg/dL (0.55-1.02); MAGNESIUM 1.5 mg/dL (1.8-2.4); POTASSIUM 3.1 mmol/L (3.5-5.1)
--- NOTE | 2024-07-21 06:54 | NUR ---
BOTH HOTEL CONCIERGE'S GOT PT CLEANED UP AND INTO HER WHEEL CHAIR. PT HAD A MEDIUM BM.
--- NOTE | 2024-07-21 07:20 | NUR ---
IN TO GIVE SHIFT REPORT, PT IS SITTING UP IN WHEELCHAIR WITH IN ROOM. DR OLSON ROUNDING ON PT AND DISCUSSING PLAN OF CARE FOR THE DAY, QUESTIONS ANSWERED. PT HAS NO NEEDS AT THIS TIME.
--- NOTE | 2024-07-21 08:01 | NUR ---
RECIEVED BEDSIDE REPORT FROM EDNA REESE. PT WAS AWAKE, ALERT, AND IN WC WITH DR OLSON IN ROOM. DR OLSON REPORTED THAT SHE LOOKS MUCH BETTER, HAS ALL EQUIPMENT ALREADY IN PLACE AT HOME. FROM HIS VIEW, SHE IS GOOD TO DISCHARGE IF OUTPATIENT PT CAN BE SET UP. PT REQUESTED ASSISTANCE TO THE BATHROOM. SHE HAD ONE SM LOOSE BM. RN ASSISTED WITH PERICARE. PT REQUESTED TO GO BACK TO BED. ASSISTED BACK TO BED. PT REQUESTED FRESH WATER, GAVE 300ML OF FRESH WATER. PT WOULD LIKE TO NOTIFY MD THAT SHE THREW UP RELATED TO VOLUME OF WATER DRANK WHILE EATING AND WOULD LIKE A DIET CHANGE TO REGULAR.
[2024-07-21] MEDS ORDERED: POTASSIUM CHLORIDE 10 MEQ TABCR PO ONE ×2 (08:15→15:00)
[2024-07-21] MEDS ORDERED: POTASSIUM CHLORIDE 40 MEQ in DEXTROSE 5% 250 ML IV ONE (08:15)
[2024-07-21] MEDS ORDERED: MAGNESIUM SULFATE 2 GM/50 ML BAG IV SCH (08:15)
[2024-07-21] MEDS ORDERED: PANTOPRAZOLE SODIUM 40 MG TABEC PO SCH (09:00)
[2024-07-21 09:03] VITALS: BP 138/76
--- NOTE | 2024-07-21 09:40 | NUR ---
UR CONCURRENT REVIEW: [facility] IN[facility] CRITERIA FOR DISCHARGE MD PLAN FOR DC TODAY INPT 07/13/24 ORDER MATCHES REG AWAITING RECORDS REQUEST DISCHARGE TO HOME WHEN STABLE 07/24/24
[2024-07-21] MEDS ORDERED: PANTOPRAZOLE SO40 MG PO (09:54)
--- NOTE | 2024-07-21 10:00 | NUR ---
NURSE IN TO DO ASSESSMENT AND ROUNDS. PT IS AWAKE AND ALERT ON PHONE WITH HER . PT WAS SERVED BREAKFAST WITH BLACK PEPPER ON IT, PT IS SEVERELY ALLERGIC TO BLACK PEPPER. REORDERED CREAM OF WHEAT FOR PT. MD ROUNDED, SHE WILL DC TODAY WITH HOME OR OUTPATIENT PT.
--- NOTE | 2024-07-21 10:06 | NUR ---
In and spoke with Mendoza, she is awake and eating breakfast. I confirmed she would still like to have see her for therapy and she agrees. She would like to use [facility] as they worked with her mother. Let her know I will send the chart. She denies other needs.
[2024-07-21] MEDS ORDERED: NICODERM CQ1 EAC2 TD (10:43)
[2024-07-21] MEDS ORDERED: NICORETTE2 MG BUCCAL (10:44)
[2024-07-21] MEDS ORDERED: POTASSIUM CHLORIDE 10 MEQ TABCR ONE (10:57)
--- NOTE | 2024-07-21 12:18 | NUR ---
WITH PHILOSOPHY PROFESSOR, CHANGED PT BEDDING DUE TO LARGE LOOSE BM. PT IS CLEAN AND DRY, IN BED WITH HER COMPUTER.
--- NOTE | 2024-07-21 13:13 | NUR ---
PT REPORTS IV POTASSIUM IS PAINFUL. SITE DOES NOT LOOK INFILTRATED, BUT IV STOPPED. DISCUSSED WITH DR. MONET TO STOP IV POTASSIUM, WILL ORDER ORAL POTASSIUM PRIOR TO DISCHARGE.
[2024-07-21 14:06] VITALS: BP 148/70
[2024-07-21] MEDS ORDERED: CARAFATE1 GM PO (14:47)
[2024-07-21 15:31] VITALS: BP 133/71
== END 2024-07-21 16:33 | disposition home or self-care (01) | DRG 327 ==
LOC: ED 02:54 → CCU 11:04 → MS 11:04 → CCU 20:19 → MS 07-19 02:15
PROVIDERS: Colon & Rectal Surgery; Emergency Medicine; Family Medicine; Student in an Organized Health Care Education/Training Program; ADMIT Family Medicine; ATTEND Family Medicine
PROC: 0DJ08ZZ Inspection of Upper Intestinal Tract, Via Natural or Artificial Opening Endoscopic (ICD-10-PCS; 2024-07-13)
PROC: 05HM33Z Insertion of Infusion Device into Right Internal Jugular Vein, Percutaneous Approach (ICD-10-PCS; 2024-07-14)
PROC: B543ZZA Ultrasonography of Right Jugular Veins, Guidance (ICD-10-PCS; 2024-07-14)
PROC: 0DQ90ZZ Repair Duodenum, Open Approach (ICD-10-PCS; principal; 2024-07-14 11:00)
PROC: 0DJ08ZZ Inspection of Upper Intestinal Tract, Via Natural or Artificial Opening Endoscopic (ICD-10-PCS; 2024-07-14 11:00)
DX: K26.4 Chronic or unspecified duodenal ulcer with hemorrhage (principal); K95.09 Other complications of gastric band procedure; N17.9 Acute kidney failure, unspecified; D64.9 Anemia, unspecified; K25.9 Gastric ulcer, unspecified as acute or chronic, without hemorrhage or perforation; E66.9 Obesity, unspecified; E11.9 Type 2 diabetes mellitus without complications; F41.9 Anxiety disorder, unspecified; I10 Essential (primary) hypertension; F31.9 Bipolar disorder, unspecified; M79.7 Fibromyalgia; J45.909 Unspecified asthma, uncomplicated; M51.369 Other intervertebral disc degeneration, lumbar region without mention of lumbar back pain or lower extremity pain; F17.210 Nicotine dependence, cigarettes, uncomplicated; Z91.048 Other nonmedicinal substance allergy status; Z90.710 Acquired absence of both cervix and uterus; Z88.5 Allergy status to narcotic agent; Z88.8 Allergy status to other drugs, medicaments and biological substances
CPT/HCPCS: 00731; 00813; 36415; 36430; 36556; 36592; 36600; 71045; 71260; 74018; 76942; 80048; 80053; 81001; 82803; 83036; 83605; 83735; 83880; 84100; 84484; 85025; 85027; 85060; 85379; 85384; 85610; 85730; 86850; 86900; 86901; 86922; 87040; 87088; 93005; 93010; 94002; 94003; 94640; 94668; 94760; 97110; 97163; 97530; 99285-25; 99406; A9270; J0131; J0330; J0690; J0696; J0780; J1100; J1171; J1815; J1885; J2003; J2060; J2250; J2405; J2470; J2704; J2795; J2997; J3010; J3475; J3480; J3490; J7030; J7060; J7070; J7121; P9016; P9035; P9059; P9612; Q9967; U0002

== ENCOUNTER 2024-07-22 04:00 | Emergency (ER) | payer BC, OTHER ==
[~2024-07-22] VITALS: Ht 152.4 cm; Wt 91.0 kg
[~2024-07-22 04:00] MED LIST changes: +CARAFATE1 GM PO; +FARXIGA10 MG PO; +LANTUS SOL100 UNIT/1 SUB-Q; +NAPROXEN500 MG PO; +NICODERM CQ1 EAC2 TD; +NICORETTE2 MG BUCCAL; +PANTOPRAZOLE SO40 MG PO
[2024-07-22 04:31] LABS: HEMOGLOBIN 8.2 g/dL (12.0-18.0)
[2024-07-22 04:34] LABS: MCH 30.2 (27-36); MCHC 32.7 g/dl (30-36); MCV 92.4 fl (81-99); PLATELET COUNT 388 K/uL (140-440); RDW 15.4 (10.5-15.0)
[2024-07-22 04:47] LABS: ALBUMIN/GLOBULIN RATIO 0.67 (1.1-2.4); ANION GAP 15.8 (7-21); BILIRUBIN, TOTAL 0.4 ng/dL (0.2-1.0); BUN/CREATININE RATIO 5.15 (6.0-28.6); CALCIUM 8.2 mg/dL (8.5-10.1); CREATININE, SERUM 0.97 mg/dL (0.55-1.02); POTASSIUM 3.8 mmol/L (3.5-5.1)
[2024-07-22 04:49] LABS: BASOPHILS, MANUAL DIFF 1; EOSINOPHILS, MANUAL DIFF 4; LYMPHOCYTES, MANUAL DIFF 19; MONOCYTES, MANUAL DIFF 3; NEUTROPHILS, MANUAL DIFF 73
[2024-07-22 04:50] LABS: INR 1.08 (0.80-1.30); PARTIAL THROMBOPLASTIN TIME 28.8 Sec (22.9-41.3); PROTIME 13.3 Sec (11.2-14.2)
[2024-07-22 05:05] LABS: ABO O; ANTIBODY SCREEN NEGATIVE; RH POSITIVE
[2024-07-22] MEDS ORDERED: LACTATED RINGER'S 1,000 ML IV ONE (05:45)
[2024-07-22 06:57] LABS: BASOPHILS 0.4 % (0-2); EOSINOPHILS 4.9 % (0-6); HEMATOCRIT 25.3 % (35.0-50.0); HEMOGLOBIN 8.5 g/dL (12.0-18.0); LYMPHOCYTES 14.4 % (24-44); MCH 30.5 (27-36); MCHC 33.8 g/dl (30-36); MCV 90.4 fl (81-99); MONOCYTES 4.4 % (0-12); NEUTROPHILS 75.9 % (39-80); PLATELET COUNT 395 K/uL (140-440); RBC 2.79 M/ul (4.3-5.7); RDW 14.9 (10.5-15.0)
[2024-07-22 07:29] VITALS: BP 125/85
== END 2024-07-22 07:29 | disposition home or self-care (01) ==
LOC: ED 04:00
PROVIDERS: Internal Medicine
DX: K64.8 Other hemorrhoids (principal); K64.4 Residual hemorrhoidal skin tags; K92.1 Melena; J45.909 Unspecified asthma, uncomplicated; I10 Essential (primary) hypertension; G47.30 Sleep apnea, unspecified; E11.9 Type 2 diabetes mellitus without complications; F17.200 Nicotine dependence, unspecified, uncomplicated; Z87.11 Personal history of peptic ulcer disease; Z98.890 Other specified postprocedural states; Z88.6 Allergy status to analgesic agent; Z88.5 Allergy status to narcotic agent; Z88.8 Allergy status to other drugs, medicaments and biological substances; Z91.018 Allergy to other foods; Z91.040 Latex allergy status; Z91.048 Other nonmedicinal substance allergy status; Z79.85 Long-term (current) use of injectable non-insulin antidiabetic drugs; Z79.899 Other long term (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
CPT/HCPCS: 36415; 80053; 85025; 85610; 85730; 86850; 86900; 86901; 99283; J7121

== ENCOUNTER 2024-08-02 22:03 | Emergency (ER) | payer OTHER ==
[~2024-08-02] VITALS: Ht 152.4 cm; Wt 89.8 kg
[2024-08-02] MEDS ORDERED: HYDROmorphone HCL 1 MG/ML SYR IV PRN (23:15)
[2024-08-02] MEDS ORDERED: ondansetron HCL 4 MG/2 ML VIAL IV ONE (23:15)
[2024-08-02 23:18] LABS: BASOPHILS 1.4 % (0-2); HEMATOCRIT 25.8 % (35.0-50.0); HEMOGLOBIN 8.5 g/dL (12.0-18.0); LYMPHOCYTES 19.7 % (24-44); MCH 31.1 (27-36); MCV 94.1 fl (81-99); MONOCYTES 7.5 % (0-12); NEUTROPHILS 66.4 % (39-80); PLATELET COUNT 717 K/uL (140-440); RBC 2.74 M/ul (4.3-5.7); RDW 17.6 (10.5-15.0)
[2024-08-02 23:33] LABS: ALBUMIN 1.8 g/dL (3.4-5.0); ALBUMIN/GLOBULIN RATIO 0.51 (1.1-2.4); ANION GAP 9.8 (7-21); BILIRUBIN, TOTAL 0.5 ng/dL (0.2-1.0); BUN/CREATININE RATIO 9.75 (6.0-28.6); CALCIUM 8.8 mg/dL (8.5-10.1); CREATININE, SERUM 0.82 mg/dL (0.55-1.02); MAGNESIUM 1.5 mg/dL (1.8-2.4); POTASSIUM 3.8 mmol/L (3.5-5.1); PROTEIN, TOTAL 5.3 g/dL (6.4-8.2)
[2024-08-03] MEDS ORDERED: HYDROmorphone HCL 2 MG HOME.PACK PO ONE (00:45)
[2024-08-03 01:25] VITALS: BP 135/75
== END 2024-08-03 01:26 | disposition home or self-care (01) ==
LOC: ED 22:03
PROVIDERS: Emergency Medicine
DX: G89.18 Other acute postprocedural pain (principal); R10.9 Unspecified abdominal pain; J45.909 Unspecified asthma, uncomplicated; I10 Essential (primary) hypertension; F31.9 Bipolar disorder, unspecified; E11.9 Type 2 diabetes mellitus without complications; F17.200 Nicotine dependence, unspecified, uncomplicated; Z88.6 Allergy status to analgesic agent; Z91.040 Latex allergy status; Z88.5 Allergy status to narcotic agent; Z88.8 Allergy status to other drugs, medicaments and biological substances; Z91.018 Allergy to other foods; Z91.048 Other nonmedicinal substance allergy status; Z79.899 Other long term (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
CPT/HCPCS: 74177; 80053; 83690; 83735; 85025; 85060; 96375; 99284-25; J1171; J2405; Q9967

== ENCOUNTER 2024-08-06 12:15 | Emergency (ER) | payer OTHER ==
[~2024-08-06] VITALS: Ht 152.4 cm; Wt 107.5 kg
[2024-08-06 12:37] LABS: HEMATOCRIT 28.3 % (35.0-50.0); HEMOGLOBIN 9.4 g/dL (12.0-18.0); MCH 31.7 (27-36); MCHC 33.1 g/dl (30-36); MCV 95.7 fl (81-99); PLATELET COUNT 817 K/uL (140-440); RBC 2.96 M/ul (4.3-5.7); RDW 21.3 (10.5-15.0)
[2024-08-06] MEDS ORDERED: SODIUM CHLORIDE 0.9% 500 ML IV PRN (12:45)
[2024-08-06 12:47] LABS: PARTIAL THROMBOPLASTIN TIME 38.7 Sec (22.9-41.3)
[2024-08-06 12:48] LABS: INR 0.98 (0.80-1.30); PROTIME 12.9 Sec (11.2-14.2)
[2024-08-06 12:52] LABS: BASOPHILS, MANUAL DIFF 1; EOSINOPHILS, MANUAL DIFF 6; LYMPHOCYTES, MANUAL DIFF 25; MONOCYTES, MANUAL DIFF 6; NEUTROPHILS, MANUAL DIFF 62
[2024-08-06 12:57] LABS: ALBUMIN/GLOBULIN RATIO 0.53 (1.1-2.4); ANION GAP 12.7 (7-21); BILIRUBIN, TOTAL 0.6 ng/dL (0.2-1.0); BUN/CREATININE RATIO 7.89 (6.0-28.6); CALCIUM 8.8 mg/dL (8.5-10.1); CREATININE, SERUM 0.76 mg/dL (0.55-1.02); POTASSIUM 3.7 mmol/L (3.5-5.1); PROTEIN, TOTAL 5.8 g/dL (6.4-8.2)
[2024-08-06 13:11] LABS: ABO O; RH POSITIVE
[2024-08-06 13:12] LABS: ANTIBODY SCREEN NEGATIVE
[2024-08-06] MEDS ORDERED: HYDROmorphone HCL 1 MG/ML SYR IV PRN (13:45)
[2024-08-06] MEDS ORDERED: HYDROCODON-ACE1 EA10 PO (15:50)
[2024-08-06 16:00] VITALS: BP 166/80
== END 2024-08-06 16:00 | disposition home or self-care (01) ==
LOC: ED 12:15
PROVIDERS: Emergency Medicine
DX: K62.5 Hemorrhage of anus and rectum (principal); L76.34 Postprocedural seroma of skin and subcutaneous tissue following other procedure; J45.909 Unspecified asthma, uncomplicated; I10 Essential (primary) hypertension; G47.30 Sleep apnea, unspecified; E11.9 Type 2 diabetes mellitus without complications; F17.200 Nicotine dependence, unspecified, uncomplicated; Z88.5 Allergy status to narcotic agent; Z88.6 Allergy status to analgesic agent; Z88.8 Allergy status to other drugs, medicaments and biological substances; Z91.018 Allergy to other foods; Z91.040 Latex allergy status; Z91.048 Other nonmedicinal substance allergy status; Z79.85 Long-term (current) use of injectable non-insulin antidiabetic drugs; Z79.899 Other long term (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
CPT/HCPCS: 36415; 80053; 85025; 85610; 85730; 86850; 86900; 86901; 96374; 96376; 99283-25; J1171

== ENCOUNTER 2024-08-11 07:40 | Day surgery (SDC) | payer BC, OTHER ==
[2024-08-09 15:27] VITALS: BP 136/90
[~2024-08-11] VITALS: Ht 152.4 cm; Wt 90.9 kg
[~2024-08-11 07:40] MED LIST changes: +CEFAZOLIN SODIUM 2 GM/20 ML SYR IV SCH; +HEParin SOD (PORCINE) 5,000 UNIT/ML SDV SUB-Q SCH; +IBLOOD GLUCOSE TEST STRIP 1 EA TEST VI PRN; +LACTATED RINGER'S 1,000 ML IV SCH; +LIDOCAINE HCL 1% 5 ML SDV INJ ONE
[2024-08-11 08:06] VITALS: BP 153/80
[2024-08-11 09:04] LABS: BASOPHILS 0.9 % (0-2); EOSINOPHILS 3.2 % (0-6); HEMATOCRIT 29.4 % (35.0-50.0); HEMOGLOBIN 9.8 g/dL (12.0-18.0); LYMPHOCYTES 21.4 % (24-44); MCH 31.5 (27-36); MCHC 33.4 g/dl (30-36); MCV 94.5 fl (81-99); MONOCYTES 8.5 % (0-12); PLATELET COUNT 696 K/uL (140-440); RBC 3.11 M/ul (4.3-5.7); RDW 20.9 (10.5-15.0)
[2024-08-11] MEDS ORDERED: DEXAMETHASONE SOD PHOS 4 MG/ML VIAL ONE (09:05)
[2024-08-11] MEDS ORDERED: propofoL 200 MG/20 ML VIAL ONE (09:05)
[2024-08-11] MEDS ORDERED: KETAMINE in NS 50 MG/5 ML SYR ONE (09:05)
[2024-08-11] MEDS ORDERED: ondansetron HCL 4 MG/2 ML VIAL ONE (09:05)
[2024-08-11] MEDS ORDERED: fentaNYL citrate 100 MCG/2 ML VIAL ONE (09:05)
[2024-08-11] MEDS ORDERED: ROCURONIUM BROMIDE 50 MG/5 ML SYR ONE (09:06)
[2024-08-11] MEDS ORDERED: LIDOCAINE HCL 2% 5 ML SDV ONE (09:06)
[2024-08-11] MEDS ORDERED: ACETAMINOPHEN 1,000 MG/100 ML VIAL ONE (09:06)
[2024-08-11] MEDS ORDERED: IBLOOD GLUCOSE TEST STRIP 1 EA TEST VI PRN (09:15)
[2024-08-11] MEDS ORDERED: droPERidol 5 MG/2 ML VIAL IV PRN (09:15)
[2024-08-11] MEDS ORDERED: ondansetron HCL 4 MG/2 ML VIAL IV PRN ×2 (09:15→11:00)
[2024-08-11] MEDS ORDERED: fentaNYL citrate 50 MCG/ML SDV IV PRN (09:15)
[2024-08-11] MEDS ORDERED: NALOXONE HCL 0.4 MG SYR IV PRN ×2 (09:15→11:00)
[2024-08-11] MEDS ORDERED: SEVOFLURANE 250 ML BTL INH ONE (09:38)
[2024-08-11] MEDS ORDERED: MIDAZOLAM HCL 2 MG/2 ML VIAL ONE (09:45)
[2024-08-11] MEDS ORDERED: LIDOCAINE 1% W/ EPI 1:200,000 30 ML SDV ONE (10:11)
[2024-08-11] MEDS ORDERED: SUGAMMADEX SODIUM 200 MG/2 ML ML ONE (10:29)
[2024-08-11] MEDS ORDERED: PROCHLORPERAZINE EDISYLATE 10 MG/2 ML VIAL IV PRN (11:00)
[2024-08-11] MEDS ORDERED: HYDROmorphone HCL 1 MG/ML SYR IV PRN (11:00)
[2024-08-11] MEDS ORDERED: HYDROCODONE/ACETA 5/325 TAB PO PRN (11:00)
[2024-08-11 11:22] VITALS: BP 116/65
--- NOTE | 2024-08-11 11:35 | NUR ---
Patient returns to room 2 from PACU via bed. Report taken from EDNA Jewell. Patient is awake and talking but is drowsy. When patient gets relaxed her oxygen drops to the mid 80's, but stays in the mid- to upper 90's. She reports her pain a 7/10. Vital signs otherwise are WDL. She denies any nausea. Water and food provided to patient to test nausea before oral pain medicine. She denies any other needs at this time. bed in lowest position. call light within reach.
--- NOTE | 2024-08-11 11:41 | NUR ---
Patient has eaten pudding and applesauce without nausea and states that she would like to take an oral pain pill. Patient medicated per orders. Pulse oximeter remains on patient's finger as she is still drowsy and oxygen tends to drop when sleeping.
--- NOTE | 2024-08-11 11:42 | NUR ---
08/11/24 1142 Fanta Sawyer 1053- PT ARRIVES TO THE PACU WITH A NATURAL AIRWAY ON 6L OF O2. BREATHING IS EVEN AND UNLABORED. PT IS REACTIVE TO TACTILE STIMULI. LR IS INFUSING IN HER R FOREARM. ABDOMEN IS SOFT AND NONDISTENDED. ALL MONITORS PUT IN PLACE. PT HAS EYES CLOSED AND SHOWS NO SIGNS OF APPARENT DISTRESS. 1055- PT WAKES AND BEGINS TALKING. PT ORIENTED TO PACU. PT DENIES NAUSEA. PT REPORTS 9/10 PAIN IN HER ABDOMEN THAT IS DEEP. VSS. 1059- PT REPORTS PAIN IS WORSE AND REPORTS 10/10 PAIN. PT IS MOVING AROUND IN THE BED WITH A BROW FURROWING NOTED. FENTANYL GIVEN, SEE EMAR. O2 TURNED OFF AND REMOVED. 1112- PT REPORTS PAIN 9/10. FENTANYL GIVEN. PT HAS A BROW FURROW AND IS LESS RESTLESS. PT MAINTAINS O2 SATS ABOVE 90%. PT IS TALKING WITH RN AND HOLDING HER HAND CRYING OFF AND ON. 1116- ICE PACK PROVIDED AND APPLIED OVER THE SITE. PT REPORTS 7/10 PAIN. PLAN OF CARE DISCUSSED. 1125- ALL MONITORS REMOVED. PT IS TRANSFERED TO DAY SURGERY. DAY SURGERY NURSE AND AT BEDSIDE. BEDSIDE REPORT GIVEN TO EDNA GAVIN. SURGICAL SITE ASSESSED TOGETHER THAT IS CDI, SOME DRAINAGE IN THE DRAIN THAT IS SEROSANGUINIOUS. PT O2 SATS DECREASE TO 80S WHEN RESTING, O2 SATS INCREASE WITH STIMULI AND REMINDER TO DEEP BREATHE. NASAL CANNULA AT BEDSIDE, DAY SURGERY RN AWARE. CARE TURNED OVER AT THIS TIME.
--- NOTE | 2024-08-11 11:42 | NUR ---
Oxygen saturation drops to 87% on RA while sleeping. Patient placed on 2L NC while patient sleeps.
[2024-08-11 12:29] VITALS: BP 154/81
--- NOTE | 2024-08-11 12:35 | NUR ---
Hourly rounding on patient. She is doing better. she rates her pain a 5/10 after the oral pain pill. She still does not have the desire to urinate. Oxygen saturation is stable. NC removed. Dressing to abdomen is clean and intact. drain also intact. Drain emptied for 20mL of sanguinous drainage. IV fluids still infusing. Water refilled. Patient denies any other needs at this time. call light within reach.
--- NOTE | 2024-08-11 12:55 | NUR ---
Patient up to use the commode. patient transfers to bedside commode with assistance. Patient is able to void and also has a BM. Unable to accurately measure voided amount, but it is over 100mL. Patient then assisted to a chair where her will help her get dressed. Patient has met all milestones at this time.
--- NOTE | 2024-08-11 13:25 | NUR ---
Hourly rounding on patient. She is dressed with the assistance of her . Nicki drain secured to patient's shirt with safety pin. Vital signs obtained and WDL. she reports he pain a 7/10 after moving, but she states that prior to exerting herself, her pain was a 5/10 which was tolerable. She states that she is comfortable going home at this time. Dressing assessed, nicki drain was emptied, approximately 5mL removed. IV removed from right arm. Provided patient with new ice pack and an extra to take home. I reviewed with the patient and her how to care for and empty the Nicki drain. I also explained that they are to document how much drainage comes from the drain. A documentation sheet was given to them for this and they expressed understanding. Complete discharge instructions were reviewed with both the patient and her as well and they expressed understanding. A written prescription was given to them. In discharge instructions, Dr. kennedy wrote to continue Diclofenac, but patient does not take this and there is not a new prescription. Call to Dr. Kennedy and he states that this was a mistype and she is not to take Diclofenac. Patient and her are aware of this. All questions were answered and both the patient and her expressed understanding of all discharge instructions. Patient was then dischared via wheelchair where her is to take her home.
[2024-08-11 13:57] VITALS: BP 145/81
--- NOTE | 2024-08-12 21:18 | OR ---
[facility] [address], [place] [address] Signed DATE OF OPERATION: 08/11/2024 SURGEON: Oli Olson MD PREOPERATIVE DIAGNOSIS: Large postoperative subcutaneous midline wound seroma (350 mL). POSTOPERATIVE DIAGNOSIS: Large postoperative subcutaneous midline wound seroma (350 mL). PROCEDURES: 1. Evacuation of seroma. 2. Subcutaneous drain placement (#7-Indian Jaden drain). ESTIMATED BLOOD LOSS: None. INDICATIONS: Magalis is a 53-year-old obese female, who came to us just about a month ago for a bleeding duodenal ulcer. She had undergone laparotomy and over-sew of the ulcer. She required blood transfusion. Overall, she has actually done very well. Unfortunately, she is not overly mobile and her functional status is low. She spent quite a bit of time in a wheelchair. She fell at home and developed a rather large subcutaneous seroma. She went to the emergency room for evaluation. They drained the seroma with a needle and syringe. Of course within a few hours it came back. I had her come to the office the following day when she called us to inform us of the above findings. I looked at the CT scan. It looks like the muscle is intact. I explained to Magalis I thought this was a bit much to continue to drain in the office. I thought it was better we would take her to the operating room, make a small incision through the skin to make sure that the midline muscle was intact. We placed a subcutaneous drain at that time under sterile conditions. Nevertheless, it does increase her risk for wound infection. She understands this would be a day surgery. There is risk including, but not limited to bleeding, infection, scarring, change in contour of the skin. She had expressed understanding and wished to proceed. DESCRIPTION OF PROCEDURE: I met with Magalis and her in our preop area. One could easily see this large seroma underneath her epigastric midline incision. We marked that appropriately. After that, we took her to the operating room, placed in the supine position under general endotracheal tube anesthesia. She was given preoperative antibiotics along with Electronically Signed By: OLI OLSON MD 08/12/24 2258 PATIENT NAME: MAGALIS BLACKMAN OPERATIVE REPORT DATE OF : 72 REPORT #: [id number] PHYSICIAN: OLI OLSON MD PCP: ERIC PIERRE MD REPORT IS CONFIDENTIAL AND NOT TO BE RELEASED WITHOUT AUTHORIZATION [facility] [address], [place] [address] Signed subcutaneous Lovenox. SCDs were utilized. She was prepped and draped in the usual sterile fashion. I made a 3 cm incision in the mid epigastric midline. We entered the seroma and we suctioned out fluid and gelatinous material. A total about 350 mL. We went all the way into the inferior end of the incision all the way to superior end of the incision. I palpated carefully up and down the abdominal wall and there was no break in the muscle. We then brought our drain in at the level of xiphoid process from her previous midline incision many years ago. We brought it through healthy adipose tissue and then into the midline incision all the way down past the umbilicus. It was held in place at the level of skin with interrupted 2-0 nylon suture. The dermis was reapproximated with interrupted 3-0 subcuticular Monocryl sutures. The skin edges were reapproximated with a running 5-0 fast absorbing plain gut suture. Dry gauze and tape was then applied. Magalis was then awakened from her anesthesia, extubated in the OR, and taken to recovery room in stable condition. Oli Olson MD ALB/MODL /[id number] cc: MD Oli Foster MD Copies: ERIC PIERRE DMD, ANDREW L MD ~ Electronically Signed By: OLI OLSON MD 08/12/24 2118 PATIENT NAME: MAGALIS BLACKMAN OPERATIVE REPORT DATE OF : 72 REPORT #: [id number] PHYSICIAN: OLI OLSON MD PCP: ERIC PIERRE MD REPORT IS CONFIDENTIAL AND NOT TO BE RELEASED WITHOUT AUTHORIZATION
== END 2024-08-11 13:50 | disposition home or self-care (01) ==
LOC: DS 07:40
PROVIDERS: Nurse Anesthetist, Certified Registered; ATTEND Colon & Rectal Surgery
PROC: 0J980ZZ Drainage of Abdomen Subcutaneous Tissue and Fascia, Open Approach (ICD-10-PCS; principal; 2024-08-11 09:00)
DX: L76.34 Postprocedural seroma of skin and subcutaneous tissue following other procedure (principal); E66.9 Obesity, unspecified; Z88.5 Allergy status to narcotic agent; Z88.8 Allergy status to other drugs, medicaments and biological substances; Z91.040 Latex allergy status
CPT/HCPCS: 00800; 36415; 85025; J0131; J0690; J1100; J1644; J2003; J2250; J2405; J2704; J3010; J3490; J7121

== ENCOUNTER 2024-08-24 16:38 | Emergency (ER) | payer BC, OTHER ==
[~2024-08-24] VITALS: Ht 152.4 cm; Wt 88.9 kg
[~2024-08-24 16:38] MED LIST changes: -CEFAZOLIN SODIUM 2 GM/20 ML SYR IV SCH; -HEParin SOD (PORCINE) 5,000 UNIT/ML SDV SUB-Q SCH; -IBLOOD GLUCOSE TEST STRIP 1 EA TEST VI PRN; -LACTATED RINGER'S 1,000 ML IV SCH; -LIDOCAINE HCL 1% 5 ML SDV INJ ONE
[2024-08-24] MEDS ORDERED: ONDANSETRON HCL4 MG PO (16:57)
[2024-08-24] MEDS ORDERED: SODIUM CHLORIDE 0.9% 1,000 ML IV ONE (20:00)
[2024-08-24] MEDS ORDERED: ondansetron HCL 4 MG/2 ML VIAL IV ONE (20:00)
[2024-08-24] MEDS ORDERED: HYDROmorphone HCL 1 MG/ML SYR IV ONE ×2 (20:00→23:15)
[2024-08-24 20:10] LABS: HEMOGLOBIN 11.1 g/dL (12.0-18.0)
[2024-08-24 20:12] LABS: BASOPHILS 0.2 % (0-2); EOSINOPHILS 2.8 % (0-6); MCH 28.9 (27-36); MCHC 31.7 g/dl (30-36); MCV 91.1 fl (81-99); MONOCYTES 6.5 % (0-12); NEUTROPHILS 66.5 % (39-80); PLATELET COUNT 729 K/uL (140-440); RBC 3.85 M/ul (4.3-5.7); RDW 18.9 (10.5-15.0)
[2024-08-24 20:24] LABS: ALBUMIN 2.2 g/dL (3.4-5.0); ALBUMIN/GLOBULIN RATIO 0.52 (1.1-2.4); ANION GAP 13.3 (7-21); BILIRUBIN, TOTAL 0.5 ng/dL (0.2-1.0); CALCIUM 9.1 mg/dL (8.5-10.1); CREATININE, SERUM 0.8 mg/dL (0.55-1.02); POTASSIUM 4.3 mmol/L (3.5-5.1); PROTEIN, TOTAL 6.4 g/dL (6.4-8.2)
[2024-08-24 22:16] LABS: BILIRUBIN, URINE NEGATIVE (negative); BLOOD/HGB, URINE SMALL (Negative); KETONE, URINE NEGATIVE (Negative); LEUK ESTERASE, URINE NEGATIVE (negative); NITRITE, URINE NEGATIVE (negative); PH, URINE 5.5 (5-7)
[2024-08-24 22:20] LABS: EPITHELIAL CELLS, URINE SQUAMOUS 1+ /lpf (0-1+)
[2024-08-24 22:21] LABS: BACTERIA, URINE RARE /hpf (negative); CASTS, URINE NONE SEEN \\lpf; COLLECTION TYPE, URINE CLEAN CATCH; CRYSTALS, URINE NONE SEEN (0-1+); RED BLOOD CELLS, URINE 21-40 /hpf (0-5); REFLEX CULTURE, URINE No (No)
[2024-08-24] MEDS ORDERED: CEFDINIR300 MG PO (22:34)
[2024-08-24] MEDS ORDERED: ONDANSETRON ODT4 MG PO (22:35)
[2024-08-24] MEDS ORDERED: HYDROCODON-ACE1 EA10 PO (22:35)
[2024-08-24] MEDS ORDERED: ONDANSETRON 4 MG HOME.PACK SL ONE (23:15)
[2024-08-24] MEDS ORDERED: HYDROCODONE BIT/ACETAMINOPHEN 5/325 MG 1 TAB HOME.PACK PO ONE (23:15)
[2024-08-24 23:51] VITALS: BP 134/65
== END 2024-08-24 23:53 | disposition home or self-care (01) ==
LOC: ED 16:38
PROVIDERS: Family Medicine
DX: N13.6 Pyonephrosis (principal); J45.909 Unspecified asthma, uncomplicated; I10 Essential (primary) hypertension; E11.9 Type 2 diabetes mellitus without complications; G47.30 Sleep apnea, unspecified; F17.200 Nicotine dependence, unspecified, uncomplicated; Z98.890 Other specified postprocedural states; Z88.6 Allergy status to analgesic agent; Z88.5 Allergy status to narcotic agent; Z88.8 Allergy status to other drugs, medicaments and biological substances; Z91.040 Latex allergy status; Z91.02 Food additives allergy status; Z91.048 Other nonmedicinal substance allergy status; Z79.85 Long-term (current) use of injectable non-insulin antidiabetic drugs; Z79.899 Other long term (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
CPT/HCPCS: 36415; 51701; 74177; 80053; 81001; 83690; 85025; 99284-25; A9270; J1171; J2405; J7030; Q9967

== ENCOUNTER 2024-09-22 20:06 | Emergency (ER) | payer BC, OTHER ==
[~2024-09-22] VITALS: Ht 152.4 cm; Wt 88.0 kg
[~2024-09-22 20:06] MED LIST changes: +CEFDINIR300 MG PO; +ONDANSETRON HCL4 MG PO; +ONDANSETRON ODT4 MG PO
[2024-09-22] MEDS ORDERED: PIPERACILLIN/TAZOBACTAM 3.375 GM in SODIUM CHLORIDE 0.9% 100 ML IV ONE (20:30)
[2024-09-22] MEDS ORDERED: PIPERACILLIN/TAZOBACTAM 3.375 GM VIAL ONE (20:35)
[2024-09-22 20:39] LABS: BASOPHILS 0.9 % (0-2); EOSINOPHILS 3.1 % (0-6); HEMATOCRIT 37.6 % (35.0-50.0); HEMOGLOBIN 11.5 g/dL (12.0-18.0); LYMPHOCYTES 9.6 % (24-44); MCH 27.1 (27-36); MCHC 30.6 g/dl (30-36); MCV 88.4 fl (81-99); MONOCYTES 3.9 % (0-12); NEUTROPHILS 82.5 % (39-80); PLATELET COUNT 490 K/uL (140-440); RBC 4.25 M/ul (4.3-5.7); RDW 19.7 (10.5-15.0)
[2024-09-22] MEDS ORDERED: HYDROmorphone HCL 1 MG/ML SYR IV PRN (20:45)
[2024-09-22] MEDS ORDERED: ondansetron HCL 4 MG/2 ML VIAL IV ONE (20:45)
[2024-09-22 20:50] LABS: INR 1.1 (0.80-1.30); PARTIAL THROMBOPLASTIN TIME 39.7 Sec (22.9-41.3); PROTIME 14.2 Sec (11.2-14.2)
[2024-09-22 20:53] LABS: ALBUMIN 2.2 g/dL (3.4-5.0); ALBUMIN/GLOBULIN RATIO 0.52 (1.1-2.4); ANION GAP 12.7 (7-21); BILIRUBIN, TOTAL 1.2 mg/dL (0.2-1.0); BUN/CREATININE RATIO 15.58 (6.0-28.6); CALCIUM 9.6 mg/dL (8.5-10.1); CREATININE, SERUM 0.77 mg/dL (0.55-1.02); POTASSIUM 3.7 mmol/L (3.5-5.1); PROTEIN, TOTAL 6.4 g/dL (6.4-8.2)
[2024-09-22 20:59] LABS: LACTIC ACID, BLOOD 2.1 mmol/L (0.4-2.0)
[2024-09-22 21:29] LABS: ABO O; ANTIBODY SCREEN NEGATIVE; RH POSITIVE
[2024-09-22] MEDS ORDERED: MAGNESIUM SULFATE 2 GM/50 ML BAG IV ONE (21:45)
[2024-09-22 21:53] LABS: CORONAVIRUS COVID-19 AG NEGATIVE (NEGATIVE); INFLUENZA A AG NEGATIVE (NEGATIVE); INFLUENZA B AG NEGATIVE (NEGATIVE)
[2024-09-22 22:39] LABS: BILIRUBIN, URINE NEGATIVE (negative); BLOOD/HGB, URINE LARGE (Negative); KETONE, URINE NEGATIVE (Negative); LEUK ESTERASE, URINE NEGATIVE (negative); NITRITE, URINE NEGATIVE (negative); PH, URINE 5.5 (5-7)
[2024-09-22 22:45] LABS: RED BLOOD CELLS, URINE 21-40 /hpf (0-5)
[2024-09-22 22:46] LABS: BACTERIA, URINE 1+ /hpf (negative); CASTS, URINE NONE SEEN \\lpf; COLLECTION TYPE, URINE CLEAN CATCH; CRYSTALS, URINE NONE SEEN (0-1+); EPITHELIAL CELLS, URINE SQUAMOUS 1+ /lpf (0-1+); REFLEX CULTURE, URINE Yes (No)
[2024-09-22 22:53] LABS: BASOPHILS 0.3 % (0-2); HEMOGLOBIN 10.9 g/dL (12.0-18.0); LYMPHOCYTES 11.8 % (24-44); MCH 27.4 (27-36); MCHC 31.1 g/dl (30-36); MCV 88.3 fl (81-99); NEUTROPHILS 79.9 % (39-80); PLATELET COUNT 447 K/uL (140-440); RBC 3.97 M/ul (4.3-5.7); RDW 19.4 (10.5-15.0)
[2024-09-22] MEDS ORDERED: AMOX TR-K CLV1 EAC1 PO (23:13)
[2024-09-22] MEDS ORDERED: DILAUDID2 MG PO (23:13)
[2024-09-22] MEDS ORDERED: ONDANSETRON ODT8 MG PO (23:13)
[2024-09-22] MEDS ORDERED: ONDANSETRON 4 MG HOME.PACK SL ONE (23:15)
[2024-09-22] MEDS ORDERED: HYDROmorphone HCL 2 MG HOME.PACK PO ONE (23:15)
[2024-09-22] MEDS ORDERED: AMOXICILLIN/CLAVULANATE K 875 MG HOME.PACK PO ONE (23:15)
[2024-09-23 00:20] VITALS: BP 100/54
--- NOTE | 2024-09-24 18:39 | EKG ---
[facility] [address] [facility] [place] [address] Signed Normal sinus rhythm Cannot rule out Anterior infarct , age undetermined Abnormal ECG When compared with ECG of 13-JUL-2024 02:58, No significant change was found Confirmed by Lawrence Talamantes MD () on 09/24/2024 6:39:37 PM Electronically Signed By: LAWRENCE TALAMANTES MD 09/24/24 1839 PATIENT NAME: MAGALIS BLACKMAN Electrocardiogram DATE OF : 72 PHYSICIAN: LAWRENCE TALAMANTES MD REPORT #: [id number] REPORT IS CONFIDENTIAL AND NOT TO BE RELEASED WITHOUT AUTHORIZATION
== END 2024-09-23 00:40 | disposition home or self-care (01) ==
LOC: ED 20:06
PROVIDERS: Family Medicine
DX: G89.18 Other acute postprocedural pain (principal); N20.0 Calculus of kidney; N39.0 Urinary tract infection, site not specified; J45.909 Unspecified asthma, uncomplicated; G47.30 Sleep apnea, unspecified; E11.9 Type 2 diabetes mellitus without complications; F17.200 Nicotine dependence, unspecified, uncomplicated; Z91.048 Other nonmedicinal substance allergy status; Z91.040 Latex allergy status; Z91.02 Food additives allergy status; Z88.6 Allergy status to analgesic agent; Z88.5 Allergy status to narcotic agent; Z88.8 Allergy status to other drugs, medicaments and biological substances; Z79.899 Other long term (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
CPT/HCPCS: 36415; 71045; 74177; 80053; 81001; 83605; 83690; 83735; 85025; 85610; 85730; 86850; 86900; 86901; 87088; 93005; 93010; 96367; 96375; 96376; 99285-25; A9270; J1171; J2405; J2543; J3475; Q9967

== ENCOUNTER 2024-09-29 15:20 | Inpatient (IN) | payer BC, OTHER ==
[~2024-09-29] VITALS: Ht 152.4 cm; Wt 88.7 kg
[~2024-09-29 15:20] MED LIST changes: +AMOX TR-K CLV1 EAC1 PO; -NICODERM CQ1 EAC2 TD; +NICODERM CQ1 EACH TD
[2024-09-29 15:52] LABS: BASOPHILS 1.2 % (0-2); EOSINOPHILS 1.3 % (0-6); HEMATOCRIT 36.7 % (35.0-50.0); HEMOGLOBIN 11.9 g/dL (12.0-18.0); LYMPHOCYTES 14.3 % (24-44); MCH 28.3 (27-36); MCHC 32.6 g/dl (30-36); MONOCYTES 5.5 % (0-12); NEUTROPHILS 77.7 % (39-80); PLATELET COUNT 720 K/uL (140-440); RBC 4.21 M/ul (4.3-5.7); RDW 19.6 (10.5-15.0)
[2024-09-29 16:06] LABS: ALBUMIN 2.4 g/dL (3.4-5.0); ALBUMIN/GLOBULIN RATIO 0.55 (1.1-2.4); ANION GAP 14.1 (7-21); BILIRUBIN, TOTAL 0.3 mg/dL (0.2-1.0); BUN/CREATININE RATIO 10.71 (6.0-28.6); CALCIUM 9.6 mg/dL (8.5-10.1); CREATININE, SERUM 0.84 mg/dL (0.55-1.02); POTASSIUM 4.1 mmol/L (3.5-5.1); PROTEIN, TOTAL 6.8 g/dL (6.4-8.2)
[2024-09-29] MEDS ORDERED: LACTATED RINGER'S 1,000 ML IV SCH ×2 (17:00→18:45)
[2024-09-29] MEDS ORDERED: CEFAZOLIN SODIUM 2 GM/20 ML SYR IV ONE (17:00)
[2024-09-29] MEDS ORDERED: CYCLOBENZAPRINE5 MG PO (17:01)
[2024-09-29] MEDS ORDERED: EPINEPHRIN0.3 MG/0.3 IM (17:01)
[2024-09-29] MEDS ORDERED: LOSARTAN POTASS50 MG PO (17:02)
[2024-09-29] MEDS ORDERED: HYDROCODON-ACE1 EA10 PO (17:02)
[2024-09-29] MEDS ORDERED: PIOGLITAZONE HC15 MG PO (17:02)
[2024-09-29] MEDS ORDERED: SEVOFLURANE 250 ML BTL INH ONE (17:10)
[2024-09-29] MEDS ORDERED: fentaNYL citrate 100 MCG/2 ML VIAL ONE (17:25)
[2024-09-29] MEDS ORDERED: LIDOCAINE HCL 2% 5 ML SDV ONE (17:26)
[2024-09-29] MEDS ORDERED: SUCCINYLCHOLINE IN 0.9% NACL 200 MG/10 ML SYRINGE ONE (17:26)
[2024-09-29] MEDS ORDERED: propofoL 200 MG/20 ML VIAL ONE (17:26)
[2024-09-29] MEDS ORDERED: ROCURONIUM BROMIDE 50 MG/5 ML SYR ONE (17:26)
[2024-09-29] MEDS ORDERED: ondansetron HCL 4 MG/2 ML VIAL ONE (17:26)
[2024-09-29] MEDS ORDERED: ACETAMINOPHEN 1,000 MG/100 ML VIAL ONE (17:32)
[2024-09-29] MEDS ORDERED: LIDOCAINE HCL 4% 5 ML AMP ONE (17:33)
[2024-09-29] MEDS ORDERED: DEXAMETHASONE SOD PHOS 4 MG/ML VIAL ONE (17:41)
[2024-09-29] MEDS ORDERED: fentaNYL citrate 50 MCG/ML SDV IV PRN (18:15)
[2024-09-29] MEDS ORDERED: ondansetron HCL 4 MG/2 ML VIAL IV PRN ×2 (18:15→18:45)
[2024-09-29] MEDS ORDERED: IBLOOD GLUCOSE TEST STRIP 1 EA TEST VI PRN (18:15)
[2024-09-29] MEDS ORDERED: droPERidol 5 MG/2 ML VIAL IV PRN (18:15)
[2024-09-29] MEDS ORDERED: NALOXONE HCL 0.4 MG SYR IV PRN (18:15)
[2024-09-29] MEDS ORDERED: LOSARTAN POTASSIUM 50 MG TAB PO SCH (18:48)
[2024-09-29] MEDS ORDERED: SUMAtriptan succinate 50 MG TAB PO PRN (19:00)
[2024-09-29] MEDS ORDERED: HYDROCODONE/ACETA 5/325 TAB PO PRN (19:00)
[2024-09-29] MEDS ORDERED: NICOTINE 21 MG/24 HR 1 EA TDSY TD SCH (19:00)
[2024-09-29 19:04] VITALS: BP 146/79
--- NOTE | 2024-09-29 19:05 | NUR ---
RECEIVED PT FROM PACU, RECEIVED REPORT FROM SURGERY RN. PT TEARFUL, REPORTS "SURFACE PAIN" TO ABD. 2 RN SKIN CHECK DONE W/ TALIA RN. NEW DISPOSIBLE BRIEF PLACED, SKIN INTACT. IVF INFUSING. CALL LIGHT WITHIN REACH.
--- NOTE | 2024-09-29 19:54 | NUR ---
PATIENT ADMISSION FINISHED. PATIENT RESTING IN BED. APPEARS COMFORTABLE. DENIED NEEDS OR CONERNS. WOUND VAC IN PLACE ON ABD AND FUNCTIONING PROPERLY. SCDs IN PLACE. PATIENT DUE TO VOID, FEMALE EXTERNAL CATH IN PLACE. ATTENDS IN PLACE. IV FLUIDS PER ORDER, SITE WNL. PATIENT TOLERATING SIPS OF WATER. DENIED GI UPSET. ABD IS SOFT, TENDER WITH ACTIVE BOWEL SOUNDS. TOLERATING ROOM AIR. FAMILY AT BEDSIDE. CALL LIGHT IN REACH.
[2024-09-29 19:57] VITALS: BP 134/64
--- NOTE | 2024-09-29 20:00 | NUR ---
PT RESTING IN BED, VISITING W/ SPOUSE AND GRANDDAUGHTER. REPORTS ONGOING ABD PAIN "SURFACE" AT WOUNDVAC SITE-MEDICATED W/ PRN NORCO. VSS. LSC. HRR. BT HYPO X 4. BELCHING FREQUENTLY. ABD MILDLY DISTENDED, TENDER. DENIES NAUSEA. PT PROVIDED W/ CHICKEN BROTH PER REQUEST W/ HS MEDS. MIDLINE ABD WOUNDVAC DRSG CDI, SET AT 120MMHG. SKIN SURROUNDING INC SLIGHTLY REDDENED. VERY MINIMAL SEROSANG DRNG IN WOUNDVAC TUBING. PUREWICK IN PLACE-UO CLEAR HANNA. RW IV INFUSING LR. SCD'S IN PLACE TO BLE. CALL LIGHT WITHIN REACH.
[2024-09-29] MEDS ORDERED: ALBUTEROL SULFATE 0.083% 3 ML VIAL INH PRN (20:45)
[2024-09-29] MEDS ORDERED: DOXYCYCLINE HYCLATE 100 MG CAP PO SCH (21:00)
[2024-09-29] MEDS ORDERED: SUCRALFATE 1 GM TAB PO SCH ×2 (21:00)
[2024-09-29] MEDS ORDERED: FAMOTIDINE 20 MG/ 2 ML VIAL IV SCH (21:00)
[2024-09-29] MEDS ORDERED: GABAPENTIN 300 MG CAP PO SCH (21:00)
[2024-09-29] MEDS ORDERED: PANTOPRAZOLE SODIUM 40 MG TABEC PO SCH (21:00)
[2024-09-29 21:11] VITALS: BP 130/64
[2024-09-29 21:12] VITALS: BP 130/64
--- NOTE | 2024-09-29 21:15 | NUR ---
PT AWAKE, VISTING W/ FAMILY. POST-OP VS OBTAINED. PT TOELRATED CHICKEN BROTH. JELLOW GIVEN PER REQUEST.
--- NOTE | 2024-09-29 21:17 | NUR ---
DR HANSON CONTACTED, SEE NEW ORDERS FOR BG CHECKS, SLIDING SCALE INSULIN AND DIABETIC DIET.
--- NOTE | 2024-09-29 21:42 | NUR ---
09/29/242141 Dalia Omalley 1818-PT ARRIVED TO PACU ON RA WITH SATS 92% OR GREATER. PT REACTIVE TO TACTILE STIMULI, BUT DROWSY. WOUND VAC IN PLACE TO ABD, MIDLINE, AND RUNNING AT 120mmHg. IV SITE ASSESSED IN RFA. 20G PRESENT AND INFUSING LR PER ORDERS. IV DRSG APPEARS CDI. PUREWICK IN PLACE. 182-PT CONTINUES TO DOZE ON AND OFF. SATS REMAIN STABLE AT 92% OR GREATER ON RA. RR APPEARS EVEN AND UNLABORED. PT DENIES NAUSEA AND REPORTS PAIN IN ABD AT 6/10. 182-PT REPORTING INCREASED PAIN IN ABD TO 9/10 AND REQUESTING PAIN MANAGEMENT. PT NOTED TO BE BURPING LARGE AMTS AND ECNOURAGED TO CONTINUE TO HELP WITH ABD BLOATING POST-OP. RR REMAINS EVEN AND UNLABORED WITH SATS 92% OR GREATER ON RA. 183-PT GIVEN IV PAIN MEDS PER ORDERS FOR C/O PAIN 9/10 IN SURGICAL SITE. SATS REMAIN STABLE ON RA. 183-PT REPORTS PAIN IMPROVED SLIGHTLY IN ABD AND NOW RATES PAIN AT 8/10. ADDITIONAL IV PAIN MEDS GIVEN. SATS REMAIN STABLE ON RA WITH SATS 92% OR GREATER. PT ENCOURAGED TO DEEP BREATH AND COUGH AND PT DEMONSTRATED UNDERSTANDING. 184-PT NOTED TO BE DROWSY. DOZING ON AND OFF. REACTIVE TO TACTILE STIMULI. SATS REMAIN 92% OR GREATER ON RA. PT BECOMES TEARFUL AND REPORTS RECENT LOSS OF JOB D/T HEALTH ISSUES WELL RECENT LOSS OF PET. REASSURANCE PROVIDED. 184-PT CONT TO REPORT PAIN AND RATES PAIN 8/10. IV PAIN MEDS GIVEN. SATS REMAIN STABLE ON RA WITH EVEN AND UNLABORED RR NOTED. 1852-PT REPORTING SOME IMPROVEMENT IN PAIN AND NOW RATING AT 7/10. PT REPORTS PAIN TO BE "SURFACE PAIN". PT WAS ASKED IF THIS IS TOLERABLE FOR HER AND REPLIED "YES". PT ALSO CONTINUES WITH FREQ BELCHING AND ABD DISTENTION HAS DECREASED SINCE ARRIVAL TO PACU. PUREWICK REMAINS IN PLACE. NO URINE OUTPUT NOTED THUS FAR. 1904-PT TRANSFERRED VIA BED TO MS RM 113. REPORT GIVEN TO MS EDNA HAIDER. SURGICAL SITE VISUALIZED WITH MS EDNA AND REMAINS CDI WITH WOUND VAC ON AND FUNCTIONING AT 120mmHg. ALL QUESTIONS ANSWERED. BED IN LOW POSITION, WHEELS LOCKED, CALL LIGHT WITHIN REACH. BILAT RAILS IN PLACE. PUREWICK IN PLACE. ALL PERSONAL BELONINGS TAKEN WITH PT.
[2024-09-29] MEDS ORDERED: ACETAMINOPHEN 500 MG TAB PO SCH (22:00)
[2024-09-29] MEDS ORDERED: metroNIDAZOLE/SODIUM CHLORIDE 500 MG/100 ML PIGGYBACK IV SCH (22:00)
[2024-09-29 22:21] VITALS: BP 120/64
--- NOTE | 2024-09-29 22:34 | NUR ---
POST-OP VS COMPLETED. PT RESTING COMFORTABLY IN BED, REPORTS ABD PAIN 7/10 BUT DENIES NEED FOR PAIN INTERVENTION AT THIS TIME. PT TOLERATED APPLE JUICE AND CRACKERS, NO NAUSEA REPORTED. IVF INFUSING, IV ATB STARTED PER EMAR.
[2024-09-30] VITALS (9 sets, daily range): BP systolic 130–147; BP diastolic 77–86
--- NOTE | 2024-09-30 00:59 | NUR ---
PT UP ON BSC, IV BEEPING-SITE IS POSITIONAL.
[2024-09-30] MEDS ORDERED: CEFAZOLIN SODIUM 2 GM/20 ML SYR IV SCH (01:00)
--- NOTE | 2024-09-30 01:18 | NUR ---
CALL LIGHT ANSWERED. PT NEEDED TO USE BATHROOM. BOTTLE CLEANER 1PA PIVOT TO BSC. PT GIVEN CALL LIGHT ANS INTRUSTED TO CALL WHEN FINISHED. CALL LIGHT ANSWERED. PT DONE ON BSC. BOTTLE CLEANER ASSISTED PT INTO CLEAN BREIF AND PT BACK IN BED. BOTTLE CLEANER CHANGED PT PUREWICK AND OBTAINED VITALS AND I&O. PT STATES NO FURTHER NEEDS AT THIS TIME. CALL LIGHT WITHIN REACH.
--- NOTE | 2024-09-30 01:28 | NUR ---
PT REPORTS LOOSE BM VIA BSC. IV ATB ADMINISTERED. IVF INFUSING. WOUNDVAC TO ABD AT 120MMHG-SCANT SEROSANG DRNG IN TUBING.
--- NOTE | 2024-09-30 01:52 | NUR ---
PT BG ELEVATED, SLIDING SCALE INSULIN 5 UNITS GIVEN. REPORTS BLE NEUROPATHY PAIN, REQUESTING GABAPENTIN. INFORMED PT SHE AD A DOSE AT HS. NEXT DOSE IN AM. WARM BLANKETS OVER LEGS.
[2024-09-30] MEDS ORDERED: IBLOOD GLUCOSE TEST STRIP 1 EA TEST VI SCH ×2 (02:00→08:09)
[2024-09-30] MEDS ORDERED: INSULIN LISPRO 100 UNIT/ML ML SUB-Q SCH ×2 (02:00→08:10)
--- NOTE | 2024-09-30 05:28 | NUR ---
PT REPORTS 8/10 ABD PAIN. MEDICATED W/ PRN NORCO. SCHEDULED TYLENOL DOSE NOT GIVEN. IV ATB STARTED. LAB IN TO DRAW BLOOD.
--- NOTE | 2024-09-30 05:30 | NUR ---
MELT ROOM OPERATOR OBTAINED VITALS AND I&O. PT COMPLAINING OF IRRATION AT IV SITE. RN NOTIFED. PT STATES NO FURTHER NEEDS AT THIS TIME. CALL LIGHT WITHIN REACH.
[2024-09-30 05:32] LABS: BASOPHILS 0.3 % (0-2); HEMATOCRIT 34.2 % (35.0-50.0); HEMOGLOBIN 11.1 g/dL (12.0-18.0); LYMPHOCYTES 9.3 % (24-44); MCH 27.8 (27-36); MCHC 32.4 g/dl (30-36); MCV 85.8 fl (81-99); MONOCYTES 3.2 % (0-12); NEUTROPHILS 87.2 % (39-80); PLATELET COUNT 719 K/uL (140-440); RBC 3.98 M/ul (4.3-5.7); RDW 19.4 (10.5-15.0)
--- NOTE | 2024-09-30 05:37 | NUR ---
PT RW IV INFILTRATED-RIGHT WRIST AREA SWOLLEN. IV DC'D INTACT. PT REPORTS NEED FOR US GUIDED PLACEMENT-ART DEALER NOTIFIED.
[2024-09-30 05:44] LABS: ANION GAP 12.5 (7-21); BUN/CREATININE RATIO 11.11 (6.0-28.6); CALCIUM 9.8 mg/dL (8.5-10.1); CREATININE, SERUM 0.72 mg/dL (0.55-1.02); POTASSIUM 4.5 mmol/L (3.5-5.1)
--- NOTE | 2024-09-30 06:56 | NUR ---
MARY ANN BISHOP UNABLE TO PLACE US GUIDED IV DESPITE SEVERAL ATTEMPTS. WILL PASS ALONG TO DAYSHIFT.
--- NOTE | 2024-09-30 07:50 | NUR ---
RECIEVED BEDSIDE REPORT FROM EDNA HAIDER. PT IS AWAKE AND ALERT, LYING IN BED. SHE DOES NOT HAVE AN IV AT THIS TIME DUE TO INFILTRATION. FLOAT RN IS ARRIING TO RESTART IV. NO NEEDS AT THIS TIME.
--- NOTE | 2024-09-30 09:43 | NUR ---
PATIENT IS IN BED AT THIS TIME, BEAUTY CULTURIST CHARTED VITALS AND I&O'S, GOT FRESH WATER AND ADJUSTED IN BED. CALL LIGHT WITH IN REACH AND NOTHING ELSE NEEDED AT THIS TIME.
--- NOTE | 2024-09-30 10:11 | NUR ---
PT IS RESTING COMFORTABLY. SHE WOULD LIKE NORCO WHEN IT IS AVAILABLE.
--- NOTE | 2024-09-30 12:12 | HP ---
[facility] [address], [place] [address] Signed ADMISSION DATE: 09/29/2024 REASON FOR ADMISSION: Abdominal wall abscess. HISTORY OF PRESENT ILLNESS: This 53-year-old obese white woman is accompanied by her and presented to the emergency room and evaluated by Dr. Fernandes with an abdominal wall abscess just to the left of the midline in a recent operation used to explant a port for a lap band device that had eroded into the stomach, anticipating a repeat attempt for endoscopic removal of the device in October. I have reviewed her recent notes confirming a July 2024 operation in which she did undergo laparotomy by Dr. Oli Olson for GI bleeding, which included over-sewing of bleeding duodenal ulcer. there were two or three ulcers in total. A lap band device was noted to have eroded into the stomach on the upper endoscopy peformed at the time of her GI bleeding evaluation. She developed a large wound seroma after ulcer operation that required placement of a wound drain by Dr Olson. She was referred to [facility] for consideration of removal of the gastric lap band that was found incidentally at time of gi bleed evaluation. An attmept at endoscopic removal of the eroded lap band was undertaken by Dr Fontaine at [facility] but it was unsuccessful. She then underwent explantation of the port componant by Dr Hernando Palacios and his team. It was anticiapted that the remaining band and tubeing would be removed by another transoral attempt The port itself was removed and she was discharged to home after about seven days of hospitalization from what I gather. Upon return from [place], she presented to the emergency room approximately a week ago with swelling in the left abdomen to the left of the midline incision. A CT scan was performed, which showed some air and fluid. These findings were attributed to post operative soft tissue fluid and she was treated with antibiotics for what was suspected to be a UTI attributed to nephrolithiasis incidentally identified on CT. She was subsequently found to have NO confirmation of UTI. She presents today with erythema and tenderness in the area where previous fluid collection was noted. Her evaluation by Dr. Fernandes in the emergency room did show some purulent drainage at that site, which appeared to be spontaneous necessitation. I Electronically Signed By: KAI HANSON MD 09/30/24 1212 PATIENT NAME: MAGALIS BLACKMAN HISTORY AND PHYSICAL DATE OF : 72 REPORT #: [id number] PHYSICIAN: KAI HANSON MD PCP: ERIC PIERRE MD REPORT IS CONFIDENTIAL AND NOT TO BE RELEASED WITHOUT AUTHORIZATION [facility] [address], [place] [address] Signed think it likely that drainage is at the recent port extraction site. Erythema and warmth are noted and a relatively large undrained abscess is likley. She is noted to have an elevated white count of 16,000. A CT scan was repeated today. This CT scan finding did show increased volume of gas and fluid in the subcutaneous tissue of the left anterior abdominal paramidline area with gastric lap band tubing and findings consistent with abscess. Incidental findings included a 10 mm obstructing calculus of left ureter UPJ junction with inflammatory urothelial thickening enhancement with [id number]-[id number] hydronephrosis as well as bilateral renal calculi. Such calculi were noted previously, it is noted. Currently, the patient has no nausea or vomiting. She has had no fever, chills. She does have significant discomfort of the abdominal wall area of abscess. SOCIAL HISTORY: She is . Her attends to her. She has a [employer] group that attends to her at this time as well. PHYSICAL EXAMINATION: GENERAL: Obese, white woman who has poor dentition. HEENT: Trachea is midline. CHEST: Clear. HEART: Regular without murmur. ABDOMEN: Still quite obese. There is a healed midline incision. There is an erythematous fluctuant mass to the left of the midline consistent with abscess. Some manipulation of the soft tissue does allow for egress of purulent material. EXTREMITIES: Her lower extremities show a splint on the left ankle. Right leg shows no evidence of deep venous thrombosis. LABORATORY DATA: The CBC performed showed a white count of 17.5, hematocrit of 36.7, platelets of 720,000. Her Chem profile shows a blood sugar of 172, creatinine 0.84. Electrolytes are normal. Albumin is 2.4, globulin 4.4, alkaline phosphatase is 216. Urinalysis from previously showed no growth after 24 hours. ASSESSMENT AND PLAN: The patient has a soft tissue abdominal wall fluid collection consistent with abscess. I am certain this was present a week ago and was not drained. It was attributed to postsurgical changes from elsewhere and her white count, which was 16.0 at that time, which was attributed to possible urinary tract infection given inflammatory changes associated with nephrolithiasis. Quite obviously, she does have an abscess and probably Electronically Signed By: KAI HANSON MD 09/30/24 1212 PATIENT NAME: MAGALIS BLACKMAN HISTORY AND PHYSICAL DATE OF : 72 REPORT #: [id number] PHYSICIAN: KAI HANSON MD PCP: ERIC PIERRE MD REPORT IS CONFIDENTIAL AND NOT TO BE RELEASED WITHOUT AUTHORIZATION [address] [place] [address] Signed did before. I would recommend a brief anesthetic, incision and drainage of the abscess with a separate close suction drainage approach. Considering that the tubing for the lap band is from this area. The foreign body itself is somewhat of a nidus of infection. The fact that there has been erosion of the gastric lap band into the stomach itself could portend a possibility of an enterocutaneous fistula proper, though I doubt that is actually the case, though it certainly is a possibility. The risk of bleeding, infection, and so forth were reviewed with her. Almost certainly, she will have a Jaden drain that remains in place following drainage. I will keep her overnight initiate antibiotic therapy as appropriate. MD ALVAREZ Petersen/CRUZITO /[id number] cc: Dr. Hernando Palacios [place], [place] MD Mary Stovall MD [facility] Copies: OLI OLSON MD ~ Electronically Signed By: KAI HANSON MD 09/30/24 1212 PATIENT NAME: MAGALIS BLACKMAN HISTORY AND PHYSICAL DATE OF : 72 REPORT #: [id number] PHYSICIAN: KAI HANSON MD PCP: ERIC PIERRE MD REPORT IS CONFIDENTIAL AND NOT TO BE RELEASED WITHOUT AUTHORIZATION
--- NOTE | 2024-09-30 12:12 | OR ---
[facility] [address], [place] [address] Signed DATE OF OPERATION: 09/29/2024 SURGEON: Kai Hanson MD PREOPERATIVE DIAGNOSES: 1. Upper left paramedian abdominal wall abscess. 2. Recent explantation of port device from prior gastric band (Dr. Palacios, [facility]). 3. 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 POSTOPERATIVE DIAGNOSES: 1. Upper left paramedian abdominal wall abscess. 2. Recent explantation of port device from prior gastric band (Dr. Palacios, [facility]). 3. 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 4. Abdominal wall abscess with necrotic fat including subcutaneous tissue; remnants of capsule from port device including suture. PROCEDURES: 1. Incision and drainage of left abdominal abscess. 2. Extensive debridement of necrotic subcutaneous fat and port capsule and closure of abdominal wall fascia. 3. Application of wound VAC device defect 6 x 4 x 3 cm. ANESTHESIA: General endotracheal, Jone Garcia, SELF PAY COLLECTOR. INDICATION: This 53-year-old obese white woman has a complex past medical history. This includes placement of a laparoscopic gastric band in the [facility] several years ago. In July she presented to [facility] with gastrointestinal bleeding, ultimately requiring exploration where she was found to have a gastric ulcer x2 and actively bleeding duodenal ulcer requiring operative control by Dr. Oli Olson. She was noted on upper endoscopy to have erosion of a gastric band that had been placed laparoscopically in the [facility] few years previously. She recovered from the gastrointestinal bleeding but was later admitted with a very large wound seroma for which she had placement of an abdomina wound drain by Dr Olson. She was referred to [facility] in [place] for management of the eroded lap Electronically Signed By: KAI HANSON MD 09/30/24 1212 PATIENT NAME: MAGALIS BLACKMAN OPERATIVE REPORT DATE OF : 72 REPORT #: [id number] PHYSICIAN: KAI HANSON MD PCP: ERIC PIERRE MD REPORT IS CONFIDENTIAL AND NOT TO BE RELEASED WITHOUT AUTHORIZATION [facility] [address], [place] [address] Signed band in the stomach. She underwent and attempt at endoscopic removal by DR Fontaine which was unsuccessful and was then treated by Dr. Hernando Palacios at [facility] and his team anticipating an explantation of the lap band. From information I have, extraction of only the port from the left upper abdomen was undertaken so as to free up an endoscopic removal attempt once again in October of this year. Thus, the port was removed but other implements associated with the lap band remain. She presented to the emergency room a day after her discharge from [facility] (about a week ago) with abdominal pain in the site of a small left paramedian transverse incision. A CT scan was performed as her white count was elevated to 16,000. There was some evidence of nephrolithiasis and a CT scan performed additionally showed what appeared to be a seroma collection in the left paramedian area, not far from the small incision for explantation of the port device. She was treated with antibiotics on the basis of urinary tract infection, which was subsequently proved to be not true. She presented today with worsening left abdominal pain, erythematous changes in the area of previous small transverse incision and obvious purulent discharge from the site. The midline incision itself from July laparotomy is healing well. A CT scan was performed through the emergency room, which confirmed a more advanced segment of fluid collection and air consistent with subcutaneous abscess. I have recommended operative drainage of the abscess and other indicated procedures including debridement and so forth. The risk of bleeding, infection, need for other indicated procedure, and so forth was reviewed with her and her in detail, they understand and wished to proceed. FINDINGS: Indeed, there was a purulent fluid collection. Gram stain and cultures were obtained. The previous small transverse incision was used for access to the area. There was a fair amount of necrotic fat and what appeared to be remnants of the capsule from prior port device most likely. This included some braided suture, all of which was thoroughly debrided. Debridement was taken down to the abdominal wall fascia, which showed a small defect without true entry into the abdominal cavity, but almost certainly the properitoneal space was entered. The fascial defect was reapproximated and the most optimal management of the wound following such extensive debridement was application of wound VAC device, which was also performed. She tolerated the procedure well. BLOOD LOSS: Less than 50 mL. Electronically Signed By: KAI HANSON MD 09/30/24 1212 PATIENT NAME: MAGALIS BLACKMAN OPERATIVE REPORT DATE OF : 72 REPORT #: [id number] PHYSICIAN: KAI HANSON MD PCP: ERIC PIERRE MD REPORT IS CONFIDENTIAL AND NOT TO BE RELEASED WITHOUT AUTHORIZATION [address] [address] Signed DESCRIPTION OF PROCEDURE: The patient was brought to the operating room, given a general endotracheal anesthetic. Her obese abdomen was prepared with Betadine solution and draped sterilely. A small transverse incision where egress of purulent material was noted, was incised with an 15 blade. Dissection was carried through the edematous dermis revealing copious amounts of purulent material. This was Gram stained and cultured. Interrogation of the site showed a firm fibrous multiloculated abscess cavity. This was broken down with digital examination as well as by sharp dissection including electrocautery and so forth. There appeared to remnants of the capsule from prior port device, which included some braided suture.. All of this was debrided thoroughly. Irrigation was undertaken. There appeared to be a fascial defect to the properitoneal space. This fascia was reapproximated with interrupted 0 PDS suture. Irrigation was undertaken more fully after debridement of the soft tissue. The wound VAC was deemed most appropriate approach to the ongoing management to expedite her healing. On that basis, the defect was made at 6 x 4 x 3 cm and a wound VAC sponge (black) placed into the depths of the wound and applied to the wound VAC device at 120 mmHg suction continuously applied. She was ultimately extubated and transferred to recovery room in good condition having suffered no complications. Sponge, needle, and counts were as correct x3. MD AVLAREZ Petersen/CRUZITO /[id number] cc: MD Dr. Hernando [address] Electronically Signed By: KAI HANSON MD 09/30/24 1212 PATIENT NAME: MAGALIS BLACKMAN OPERATIVE REPORT DATE OF : 72 REPORT #: [id number] PHYSICIAN: KAI HANSON MD PCP: ERIC PIERRE MD REPORT IS CONFIDENTIAL AND NOT TO BE RELEASED WITHOUT AUTHORIZATION [address] [address] Signed Copies: OLI OLSON MD ~ Electronically Signed By: KAI HANSON MD 09/30/24 1212 PATIENT NAME: MAGALIS BLACKMAN OPERATIVE REPORT DATE OF : 72 REPORT #: [id number] PHYSICIAN: KIA HANSON MD PCP: ERIC PIERRE MD REPORT IS CONFIDENTIAL AND NOT TO BE RELEASED WITHOUT AUTHORIZATION
--- NOTE | 2024-09-30 14:34 | NUR ---
PT'S GRANDDAUGHTER AGE 5 WAS IN THE ROOM WITH NO OTHER FAMILY MEMBERS. ADVISED PT THAT ANOTHER ADULT NEEDED TO BE IN THE ROOM WITH THE CHILD. PT CALLED HER WHO WILL BE ENROUTE TO HOUSEKEEPING/LAUNDRY THE CHILD. PT VERBALIZED UNDERSTANDING THAT IF SOMETHING HAPPENED TO HER WHILE THE CHILD WAS HERE ALONE, SHE WOULD BE LEFT UNATTENDED.
--- NOTE | 2024-09-30 14:59 | NUR ---
PATIENT IS IN BED AT THIS TIME, CV RN CHARTED VITALS AND I&O'S, GOT FRESH WATER AND AN ICE PACK. FAMILY IN ROOM AT THIS TIME, CALL LIGHT WITH IN REACH. NOTHING ELSE NEEDED AT THIS TIME.
--- NOTE | 2024-09-30 16:53 | NUR ---
CALLED DR HANSON FOR AN ORDER FOR ASPERCREAM. VERBAL ORDER RECIEVED, OK TO USE HOME SUPPLY IF NOT ON FORMULARY. ORDER ENTERED.
[2024-09-30] MEDS ORDERED: TROLAMINE SALICYLATE 35.4 GM TUBE TOP PRN (17:00)
[2024-09-30] MEDS ORDERED: AMOX TR-K CLV1 EAC1 PO (17:26)
--- NOTE | 2024-09-30 18:49 | NUR ---
PATIENT IN BED AT THIS TIME, SHE NEEDED TO USE THE COMMODE. CORPORATE MANAGER CHARTED VITALS AND I&O'S, GOT FRESH WATER AND AN ICE PACK. PULLED PATIENT UP IN BED AND COVERED UP. CALL LIGHT WITH IN REACH AND NOTHING ELSE NEEDED AT THIS TIME.
--- NOTE | 2024-09-30 22:30 | NUR ---
Pt assessed and medications given. Wound vac in place, no leaks noted. VSS. IV abx infusing per order. Pt assisted to BSC, BM noted. Pt wearing purewick while in bed. BS 162, sliding scale insulin given per order. Safety precautions maintained. Call light within reach. Will continue to monitor.
[2024-10-01] VITALS (7 sets, daily range): BP systolic 14–140; BP diastolic 74–83
[2024-10-01 05:49] LABS: ANION GAP 16.2 (7-21); BUN/CREATININE RATIO 14.28 (6.0-28.6); CALCIUM 9.4 mg/dL (8.5-10.1); CREATININE, SERUM 0.84 mg/dL (0.55-1.02); POTASSIUM 4.2 mmol/L (3.5-5.1)
--- NOTE | 2024-10-01 06:09 | NUR ---
Pt rested some during the shift. Wound vac in place, no leaks noted. Pt had 2 BM's during the shift. VSS. [place] given x2 for pain. IV abx given per orders. Safety precautions maintained. Call light within reach. Will continue to monitor.
[2024-10-01 06:15] LABS: BASOPHILS 0.7 % (0-2); EOSINOPHILS 0.7 % (0-6); HEMOGLOBIN 10.5 g/dL (12.0-18.0); LYMPHOCYTES 19.1 % (24-44); MCH 27.4 (27-36); MCHC 31.7 g/dl (30-36); MCV 86.5 fl (81-99); NEUTROPHILS 75.5 % (39-80); PLATELET COUNT 743 K/uL (140-440); RBC 3.82 M/ul (4.3-5.7); RDW 19.2 (10.5-15.0)
--- NOTE | 2024-10-01 07:22 | NUR ---
VERBAL REPORT RECEIVED FROM EDNA CASTELLANOS. PT RESTS IN BED, AWAKE. CALL LIGHT IN REACH, NO REQUESTS AT THIS TIME.
--- NOTE | 2024-10-01 08:28 | NUR ---
DID MORNING ROUNDS. PATIENT REFUSED TO GET TO CHAIR AND TO HAVE BLINDS OPEN AT THIS TIME. TOLD PATIENT HER AND NURSE WANT HER UP THIS MORNING AND PATIENT STATES "I DON'T CARE I WILL TELL THEM I GOT NO SLEEP LAST NIGHT." THIS ORTHOPEDIC RN IN TO TRY AGAIN WHEN BREAKFAST ARRIVED, PATIENT SAID NO. NURSE NOTIFIED. CALL LIGHT IN REACH. NO FURTHER NEEDS AT THIS TIME.
--- NOTE | 2024-10-01 08:58 | NUR ---
PT REPORTS THAT THE PRE PRESS PROOFER ATTEMPTED GET HER INTO THE RECLINER THIS AM. PT STATES, "I NOT DOING THAT, I TIRED, I HAD DIARREAH LAST NIGHT AND DIDN'T GET ANY SLEEP." DISCUSSED WITH PT THE BENEFITS OF ACTIVITY AFTER SURGERY AND THE RISKS OF INACTIVITY. PT MAINTAINS THAT SHE WANTS TO STAY IN BED. PT IS AGREEABLE TO GET INTO RECLINER LATER THIS MORNING AFTER SHE, "TAKES A NAP." PT SITS UP EATING BREAKFAST, CONVERSATES ABOUT HER MEDICATION HISTPRY, APPEARS CALM, RESP EVEN AND UNLABORED, VSS. REPORTS PAIN 9/10 IN ABDOMEN. WOUND VAC IN PLACE OVER INCISION, SUCTION TO 120 MM HG.
--- NOTE | 2024-10-01 09:45 | NUR ---
FRESH ICE PACK APPLIED OVER INCISION. NEW HOT PACK PROVIDED FOR LOWER BACK, AND FRESH ICE WATER PROVIDED. CALL LIGHT AND BELONGINGS IN REACH. NO FURTHER REQUESTS AT THIS TIME.
--- NOTE | 2024-10-01 12:30 | NUR ---
PT UP TO RECLINER WITH 1 PERSON ASSIST, TOLERATES ACTIVITY WELL.
[2024-10-01] MEDS ORDERED: CIPROFLOXACIN 500 MG TAB PO SCH (12:32)
[2024-10-01] MEDS ORDERED: FLUCONAZOLE 200 MG TAB PO SCH (12:45)
--- NOTE | 2024-10-01 13:43 | NUR ---
PATIENT SITTING UP IN BED AT THIS TIME. VITALS AND I&O'S DONE AND CHARTED. CALL LIGHT IN REACH. NO FURTHER NEEDS AT THIS TIME.
[2024-10-01] MEDS ORDERED: ACETAMINOPHEN 500 MG TAB ONE (16:09)
--- NOTE | 2024-10-01 16:23 | NUR ---
PT RESTS IN BED, AWAKE AND ALERT, VISITORS X2. SCD'S TO BLE FROM KNEES TO TOES, WOUND VAC IN PLACE, SEAL MAINTAINED AT 120 MM HG SUCTION. FRESH ICE PROVIDED TO ABDOMEN. CALL LIGHT IN REACH. NO REQUESTS AT THIS TIME.
[2024-10-01] MEDS ORDERED: metroNIDAZOLE 250 MG TAB PO SCH (17:00)
--- NOTE | 2024-10-01 18:31 | NUR ---
PATIENT IN BED RESTING AT THIS TIME. VITALS AND I&O'S DONE AND CHARTED. CALL LIGHT IN REACH. NO FURTHER NEEDS AT THIS TIME.
--- NOTE | 2024-10-01 20:20 | NUR ---
Pt assessed and medications given. Abdominal wound vac in place, no leaks noted. VSS. [place] given for 9/10 pain. Safety precautions maintained. Call light within reach. Will continue to monitor.
[2024-10-02] VITALS (8 sets, daily range): BP systolic 101–135; BP diastolic 62–88
--- NOTE | 2024-10-02 00:09 | NUR ---
1PA PIVOT TO BEDSIDE COMMODE AND BACK TO BED. FRESH PULL UP PLACED. SCD'S OFF FOR A BREAK PER PATIENT. PRIMARY RN NOTIFIED. FRESH ICE WATER, ICE PACK AND WARM PACK PROVIDED PER PATIENT. NO FURTHER REQUEST.
--- NOTE | 2024-10-02 05:45 | NUR ---
Pt rested some during the shift. Pt had a couple BM's during the shift. Pt able to transfer x1 assist to BSC. Purewick in place while in bed. VSS. Wound vac in place. No leaks noted. Safety precautions maintained. Call light within reach. Will continue to monitor.
--- NOTE | 2024-10-02 07:04 | NUR ---
VERBAL REPORT RECEIVED FROM EDNA CASTELLANOS. PT RESTS IN BED AWAKE AND ALERT. ICE WATER PROVIDED PER REQUEST. CALL LIGHT IN REACH, NO FURTHER REQUESTS AT THIS TIME.
--- NOTE | 2024-10-02 08:15 | NUR ---
Paperwork completed for ABRAHAM and Dr. Herrera in my office. Forms signed and Faxed to Jessica at [facility] after calling. Our rep.Gunnar is off, but received a reply from my email to contact Jessica. I texted Jessica and she texted to email to Jamal email and she will review.
--- NOTE | 2024-10-02 08:43 | NUR ---
PATIENT IN BED AT THIS TIME. IRRIGATION EQUIPMENT REMOVER CHARTED HOURLY ROUNDS AND BLOODSUGAR. CALL LIGHT WITHIN REACH, NO FURTHER NEEDS AT THIS TIME.
--- NOTE | 2024-10-02 10:09 | NUR ---
UR CLINICAL REVIEW: MCG-PER MCG REVIEW MEETS INPT CRITERIA FOR CELLULITIS [facility] PPO OBS TO INPT 10/01/24 @ 1151 ORDER MATCHES REG CLINICAL FAXED TO [facility] FOR AUTH REVIEW DISCHARGE PENDING OUTPATIENT WOUND VAC PLACEMENT 10/04/24
--- NOTE | 2024-10-02 10:10 | NUR ---
PATIENT IN BED AT THIS TIME. PRODUCE SPECIALIST ASSISTED PATIENT TO BEDSIDE COMMODE AND THEN BACK TO BED. PRODUCE SPECIALIST CHARTED I&O'S, RN CHARTED VITALS. CALL LIGHT WITHIN REACH, NO FURTHER NEEDS AT THIS TIME.
--- NOTE | 2024-10-02 10:26 | NUR ---
NPWT DRESSING REMOVED, 1 PIECE OF BLACK FOAM REMOVED. WOUND BASE IS PINK AND MOIST. PT TOLERATED WELL. PT TO SHOWER.
--- NOTE | 2024-10-02 10:32 | NUR ---
PT NOT AVAILABLE FOR VISIT. PROVIDED PRAYER.
--- NOTE | 2024-10-02 10:50 | NUR ---
Met with Mendoza. She lives in a manufactured home with her spouse and 40 yo step son. Her 90 yo mother lives there also. Step son does the bar machine operator production and cares for the grandmother. Mendoza uses a wc, but can pivot transfer. She is able to order groceries on line. She cries several times during our conversation stating she can't go home as she is caring for her 90 yo mother. This is somewhat confusing as pt states she is wc bound.We discussed Dr. Herrera plans on her dc tomorrow and she will visit the wound care nurse in until her wound vac arrives. Orders were sent to [facility] this morning.
--- NOTE | 2024-10-02 11:50 | NUR ---
EDUCATION ON BID GAUZE DRESSING PROVIDED TO PT. DRESSING DEMONSTRATED STEP BY STEP. PT EXPRESSES WILLINGNESS TO PERFORM THE DRESSING AT HOME. PT VERBALIZES UNDERSTANDING OF DRESSING CHANGE. PT AGREES TO CHANGE THE DRESSING WITH GUIDANCE AT THE NEXT DRESSING CHANGE. WOUND BASE FILLED WITH 1 GAUZE, COVERED WITH 1 GAUZE AND TAPED IN PLACE. PT TOLERATED WELL.
--- NOTE | 2024-10-02 12:38 | NUR ---
PATIENT IN CHAIR AT THIS TIME. MATHEMATICS TECHNICIAN ASSISTED PATIENT WITH SHOWER. MATHEMATICS TECHNICIAN THEN TRANSFERED PATIENT FROM SHOWER CHAIR TO WHEELCHAIR AND THEN BACK TO THE CHAIR. CALL LIGHT WITHIN REACH, NO FURTHER NEEDS AT THIS TIME.
--- NOTE | 2024-10-02 12:41 | NUR ---
PT SITS IN RECLINER TO EAT LUNCH, CALL LIGHT IN REACH.
--- NOTE | 2024-10-02 13:32 | NUR ---
PATIENT IN BED AT THIS TIME. NEUROCRITICAL CARE PHYSICIAN CHARTED VITALS AND I&O'S. CALL LIGHT WITHIN REACH, NO FRUTHER NEEDS AT THIS TIME.
--- NOTE | 2024-10-02 14:07 | NUR ---
PT ASSISTED TO BSC, CALL LIGHT IN REACH, INSTRUCTED TO CALL WHEN DONE.
--- NOTE | 2024-10-02 14:20 | NUR ---
PT UP TO BSC, VOIDS AND PASSES BM - LOOSE. PT BACK TO BED, SCD'S TO BLE, ICE IN PLACE OVER ABDOMEN. NEW PUREWICK PLACED. CALL LIGHT IN REACH.
--- NOTE | 2024-10-02 16:37 | NUR ---
PT'S SPOUSE ARRIVES TO VISIT. EDUCATION PROVIDED TO SPOUSE ON ABDOMINAL DRESSING. PT RETURN DEMONSTRATES DRESSING CHANGE WITH GUIDANCE, SPOUSE OBSERVES DRESSING CHANGE. PT PERFORMS THIS WELL, TOLERATES IT WELL. SUPPLIES FOR HOME DRESSING CARE PROVIDED TO SPOUSE.
--- NOTE | 2024-10-02 17:27 | NUR ---
PATIENT CALLED FOR AN ICE PACK AND A REFILL ON HER WATER. PATIENT HAD NO OTHER NEEDS AT THIS TIME. CALL LIGHT IN REACH.
--- NOTE | 2024-10-02 18:28 | NUR ---
PATIENT IN BED AT THIS TIME. TELETYPE OR VARITYPE KEYBOARD OPERATOR CHARTED VITALS AND I&O'S. CALL LIGHT WITHIN REACH, NO FURTHER NEEDS AT THIS TIME.
--- NOTE | 2024-10-02 19:28 | NUR ---
Report received from day shift RN. Pt resting in bed. Safety precautions maintained. Call light within reach. Will continue to monitor.
--- NOTE | 2024-10-02 21:42 | NUR ---
Pt assessed and medication given. VSS. BS 152, i unit of sliding scale insulin given. Purewick in place, good output noted. Abdominal dressing CDI. Safety precautions maintained. Call light within reach. Will continue to monitor.
--- NOTE | 2024-10-03 05:27 | NUR ---
Pt rested some during the shift. VSS. Pt up x1 to bedside commod, BM noted. Purewick in place while in bed, good output noted. Abdominal pain treated with Atkins and Tylenol. Safety precautions maintained. Call light within reach. Will continue to monitor.
[2024-10-03 05:41] VITALS: BP 142/79
[2024-10-03 05:57] VITALS: BP 142/79
--- NOTE | 2024-10-03 07:04 | NUR ---
VERBAL REPORT RECEIVED FROM EDNA CASTELLANOS. PT RESTS IN BED AWAKE AND ALERT, CALL LIGHT IN REACH, NO REQUESTS AT THIS TIME.
--- NOTE | 2024-10-03 07:04 | NUR ---
VERBAL REPORT RECEIVED FROM EDNA CASTELLANOS. PT RESTS IN BED AWAKE AND ALERT, CALL LIGHT IN PLACE, NO REQUESTS AT THIS TIME.
--- NOTE | 2024-10-03 09:05 | NUR ---
PATIENT IN BED AT THIS TIME. AT RISK PARAPROFESSIONAL CHARTED HOURLY ROUNDS. CALL LIGHT WITHIN REACH, NO FURTHER NEEDS AT THIS TIME.
[2024-10-03 09:09] VITALS: BP 105/62
[2024-10-03 09:12] VITALS: BP 105/62
--- NOTE | 2024-10-03 10:12 | NUR ---
PATIENT IN BED AT THIS TIME. PELT SHEARER CHARTED I&O'S, RN CHARTED VITALS. CALL LIGHT WITHIN REACH, NO FURTHER NEEDS AT THIS TIME.
--- NOTE | 2024-10-03 10:15 | NUR ---
Contact Jessica at [facility] and she forwarded my email to Ally as Jessica is leaving on vacation. I emailed Ally and she responded they are waiting on autu.
--- NOTE | 2024-10-03 10:20 | NUR ---
VISITED DURING SPIRITUAL CARE ROUNDS. PT IN OVERALL GOOD SPIRITS, EXPRESSED GRATITUDE FOR CARE, JON IN DIVINE PROVIDENCE, CONCERN FOR HOUSING SECURITY PT HAS LOST JOB DUE TO HEALTH STRUGGLES. DIRECTOR OF RELIGIOUS LIFE PROVIDED SUPPORTIVE PRESENCE, HOSPTIATLIY, PRAYER, FACILITATED INTERACTION WITH THERAPY ANIMAL. PT EXPRESSED GRATITUDE.
--- NOTE | 2024-10-03 10:58 | NUR ---
PER KRISHNA, RN PT REQUESTED PAIN MEDICATION. EMAR REVIEWED W EDNA KELLER. PER RN, PAIN MED NOT DUE UNTIL 1200. PT NOITIFIED. ICE PACK OFFERED BUT PT DECLINED AT THIS TIME. PT DOES NOT APPEAR TO BE IN ANY ACUTE DISTRESS AT THIS TIME. RR EVEN AND UNLABORED. PT TALKING ON THE PHONE AT THIS TIME. DENIES ANY FURTHER NEEDS AT THIS TIME, CALL LIGHT WITHIN REACH.
--- NOTE | 2024-10-03 11:31 | NUR ---
PT PERFORMS HER OWN ABDOMINAL DRESSING CHANGE WITH GUIDANCE. OLD DRESSING REMOVED, WOUND CLEANSED WITH NS AND PATTED DRY. WOUND BASE FILLED GAUZE AND SECURED WITH TAPE. PT TOLERATED WELL.
[2024-10-03] MEDS ORDERED: CIPROFLOXACIN500 MG PO (11:56)
[2024-10-03] MEDS ORDERED: DOXYCYCLINE HY100 MG PO (11:56)
[2024-10-03] MEDS ORDERED: METRONIDAZOLE250 MG PO (11:56)
[2024-10-03] MEDS ORDERED: FLUCONAZOLE200 MG PO (11:56)
[2024-10-03] MEDS ORDERED: NICOTINE1 EAC2 TD (11:56)
--- NOTE | 2024-10-03 12:43 | NUR ---
PT REQUESTS TO HAVE NICOTINE PATCH REMOVED. PATCH REMOVED FROM RIGHT SHOULDER.
[2024-10-03 13:41] VITALS: BP 134/79
--- NOTE | 2024-10-03 13:47 | NUR ---
pt resting in bed. vitals and i's and o's complete. purewick removed, pt educated to utilize call light when needing to void. pt provided ice water. denies further needs, call light in reach.
--- NOTE | 2024-10-03 14:50 | NUR ---
DISCUSSED DISCHARGE INSTRUCTIONS WITH PT AND SPOUSE, BOTH VERBALIZE UNDERSTANDING. PT DRESSES WITH ASSIST. IV REMOVED TIP INTACT, GAUZE AND COBAN DRESSING APPLIED TO SITE, PT TOLERATED WELL. DRESSING TO ABDOMEN IS C/D/I. VSS. PT LEAVES UNIT VIA PERSONAL WHEELCHAIR, TRANSPORTED BY SPOUSE.
--- NOTE | 2024-10-03 14:52 | NUR ---
PATIENT CALLED FOR ASSISTANCE OFF THE COMMODE. ASSISTED PATIENT WITH TRANSFER TO [facility] AND WITH DRESSING. FAMILY MEMBER AT BEDSIDE. CALL LIGHT IN REACH. PATIENT DENIES ANY OTHER NEEDS AT THIS TIME.
--- NOTE | 2024-10-04 10:00 | DS ---
[facility] [address] [place], [place] [address] Signed ADMISSION DATE: 10/01/2024 DISCHARGE DATE: 10/03/2024 REASON FOR ADMISSION: Abdominal wall abscess. HISTORY OF PRESENT ILLNESS: This 53-year-old obese white woman, who is accompanied by her and presented to the emergency room and evaluated by Dr. Fernandes with abdominal wall abscess just to the left of the midline. She had undergone recent operation to explant a port for a lap band device. The band around the stomach had eroded into the lumen of the stomach. An endoscopic attempt at removal at [facility] in [place] was unsuccessful ( Dr Fontaine) and a staged approach was planned. The port part of the device was recently removed by Dr Hernando Palacios at [facility]. Review of her notes confirmed a July 2024 operation, in which she underwent emergency laparotomy by Dr. Olson for GI bleeding, which included over-sewing of bleeding duodenal ulcer. In the preoperative endoscopic evaluation, she was noted to have erosion of the lap band device and endoscopic control of bleeding was not possible, hence operative intervention. She did develop a large wound seroma following ulcer operation requiring placement of a drain by Dr. Olson. She was subsequently referred to [facility] for consideration and removal of the gastric lap band that had initially been found to erode into the stomach. An endoscopic removal by Dr. Fontaine at [facility] was unsuccessful. Subsequent evaluation by Dr. Hernando Palacios include explantation of port device associated with the lap band, anticipating repeat endoscopic attempted removal in October. She presented to the emergency room approximately a week prior to this admission with swelling in the left abdomen to the left of the midline. A CT was performed, which showed some air and fluid. These were attributed to postoperative soft tissue changes, and she was treated with antibiotics as an outpatient (amoxicillin). She was considered to have a urinary tract infection related to nephrolithias incidentally identified on her CT scan. The seroma was considered not an infection. She was subsequently found to have no confirmation of UTI. She presents again at this time to the emergency room with tenderness and erythema in the area of the left abdominal fluid collection with egress of purulent material. I was Electronically Signed By: KAI HANSON MD 10/04/24 1000 PATIENT NAME: MAGALIS BLACKMAN DISCHARGE SUMMARY DATE OF : 72 REPORT #: [id number] PHYSICIAN: KAI HANSON MD PCP: ERIC PIERRE MD REPORT IS CONFIDENTIAL AND NOT TO BE RELEASED WITHOUT AUTHORIZATION [facility] [address] [place] [id number] Signed consulted and she was admitted for further evaluation and care. PHYSICAL EXAMINATION: GENERAL: Shows an obese white woman, who has poor dentition. NECK: Trachea is midline. CHEST: Clear. HEART: Regular, without murmur. ABDOMEN: Quite obese. There is midline incision that is well healed. There is erythema and edema of the abdominal wall and a small transverse incision from prior extravasation of the port device, which is erythematous and shows egress of a minimal amount of purulent fluid. EXTREMITIES: Her lower extremities show a splint in the left ankle. Right leg shows no evidence of deep venous thrombosis. LABORATORY STUDIES: Showed white count of 17.5, hematocrit 36.7, and platelets 720,000. Blood sugar 172, creatinine 0.84, albumin 2.4. HOSPITAL COURSE: Quite clearly, the patient had an abdominal wall abscess in the region of the recent explanted port. She underwent operation under general anesthesia including incision and drainage of the left abdominal abscess. She was found to have remnants of the port device capsule, which appeared to be significantly infected as well. This was debrided as was other necrotic fat in the area. A simple drain management would not be likely beneficial. Once the wound was completely freed of devitalized tissue and irrigated, a wound VAC device was applied. The wound VAC defect was for a 6 x 4 x 3 cm wound defect. HOSPITAL COURSE: She was maintained on the wound VAC postoperatively and antibiotic Ancef and Flagyl. Gram stain of the fluid showed gram-positive cocci as well as some gram-negative rods and some yeast. She was transitioned to oral antibiotics, Cipro, doxycycline, and Diflucan and plans made for outpatient management of the wound with wound VAC device. Given the special logistics of the difficulty of procurement of a wound VAC device through her insurance company. Wound dressings were changed to gauze anticipating outpatient application of wound VAC device in the wound care clinic in the next day or two. She is discharged home in good condition. The cultures from the abscess are still pending at this time. She is markedly improved as regard to the erythema, and certainly with no toxicity. Her diabetes was managed Electronically Signed By: KAI HANSON MD 10/04/24 1000 PATIENT NAME: MAGALIS BLACKMAN DISCHARGE SUMMARY DATE OF : 72 REPORT #: [id number] PHYSICIAN: KAI HANSON MD PCP: ERIC PIERRE MD REPORT IS CONFIDENTIAL AND NOT TO BE RELEASED WITHOUT AUTHORIZATION [address] [address] Signed without problem during hospitalization. DISCHARGE MEDICATIONS: Include: 1. Cipro 500 mg p.o. b.i.d. #10. 2. Doxycycline 100 mg p.o. b.i.d. #10. 3. Fluconazole 200 mg p.o. daily #10. 4. Flagyl 250 mg t.i.d. #30. 5. Nicotine patch 21 mg transdermal daily #30. 6. She will continue her usual medications of sumatriptan 50 mg tablet as needed for migraine, albuterol sulfate two puffs q.4 hours as needed for shortness of breath. 7. Fluticasone 50 mcg spray daily in nasal passages for allergies.G. 8. Gabapentin 300 mg p.o. t.i.d. 9. Rosuvastatin 20 mg p.o. at bedtime. 10. Pantoprazole 40 mg p.o. b.i.d. 11. Cyclobenzaprine 5 mg p.o. b.i.d. as needed for muscle spasm. 12. EpiPen as needed for allergic reactions. 13. Tylenol with hydrocodone ([place]) one tablet p.o. t.i.d. for severe pain previously prescribed. 14. Losartan 50 mg p.o. daily. 15. Pioglitazone 15 mg tablet p.o. daily. FOLLOWUP PLAN: She will return to the wound Care Clinic this week for application of wound VAC device and I will see their episodically. I suspect this wound will be able to heal up within the next 2-4 weeks without too much problem. She will still plan to have explantation of the device in the next several weeks once this wound has healed. If she has any problems, she will certainly let me know. Cultures are still pending to guide antibiotic therapy but drainage and debridment are the most important part of treatment and have been successful. DISCHARGE DIAGNOSES: 1. Left abdominal wall abscess and associated cellulitis associated with recent explantation of port device from a lap band, which had eroded into the stomach. Gram stain gram possitive cocci, Gram negative rods and yeast. 2. Obesity. 3. Diabetes. 4. Reactive airways disease. 5. Dyslipidemia. 6. History of profound duodenal bleed related to duodenal ulcer requiring laparotomy and operative control in July 2024. Electronically Signed By: KAI HANSON MD 10/04/24 1000 PATIENT NAME: MAGALIS BLACKMAN DISCHARGE SUMMARY DATE OF : 72 REPORT #: [id number] PHYSICIAN: KAI HANSON MD PCP: ERIC PIERRE MD REPORT IS CONFIDENTIAL AND NOT TO BE RELEASED WITHOUT AUTHORIZATION [facility] [address] [place] [id number] Signed MD ALVAREZ Petersen/MODL /[id number] cc: Dr. Abilio Fernandes [facility] MD Eric Stovall MD [facility] Dr. Jakob Palacios [facility] Copies: OLI OLSON MD, ROBERT D DMD ~ Electronically Signed By: KAI HANSON MD 10/04/24 1000 PATIENT NAME: MAGALIS BLACKMAN DISCHARGE SUMMARY DATE OF : 72 REPORT #: [id number] PHYSICIAN: KAI HANSON MD PCP: ERIC PIERRE MD REPORT IS CONFIDENTIAL AND NOT TO BE RELEASED WITHOUT AUTHORIZATION
--- NOTE | 2024-10-04 10:48 | PATH ---
[facility] [address] [place], [place] [address] Signed SPECIMEN(S): A ABDOMINAL WALL PRODUCTS OF DEBRIDEMENT SPECIMEN SOURCE: A. ABDOMINAL WALL PRODUCTS OF DEBRIDEMENT CLINICAL HISTORY: Products of debridement abdominal wall abscess and previous port capsule FINAL PATHOLOGIC DIAGNOSIS: Products of debridement per requisition: - Fragments of fibroconnective and adipose tissue with acute and chronic inflammation, fat necrosis, and scarring BRP MICROSCOPIC EXAMINATION: Histologic sections of all submitted blocks are examined by light microscopy. These findings, together with the gross examination, support the pathologic diagnosis. GROSS DESCRIPTION: The specimen, labeled and designated "Leti Villegas, products of debridement per requisition," is received in formalin and consists of a 6.2 x 4.6 x 2.5 cm aggregate of yellow lobulated fibroadipose tissue. There are portions of fibrous capsule present which is kruse-white and smooth. There are no areas of hemorrhage necrosis. The adipose tissue appears unremarkable. Charging Car Operator sections are submitted cassette A1. AA (under the direct supervision of a pathologist) The Gross Description was prepared using a voice recognition system. The report was reviewed for accuracy; however, sound-alike word errors, addition and/or deletions may occur. If there is any question about this report, please contact Client Services. ADDITIONAL NOTES: Immunohistochemical and/or in situ hybridization studies if performed in this case included appropriate positive controls that reacted as expected. This test was developed and its performance characteristics determined by [email or web address]. It has not been cleared or approved by the U.S. Food and Drug Administration. The FDA has determined that such clearance or approval is not necessary. This test is used for clinical purposes. It should not be regarded PATIENT NAME: MAGALIS VILLEGAS PATHOLOGY DATE OF : 72 REPORT #: [id number] PHYSICIAN: [facility] PCP: ERIC PIERRE MD REPORT IS CONFIDENTIAL AND NOT TO BE RELEASED WITHOUT AUTHORIZATION [facility] [address] [place], [place] [address] Signed as investigational or for research. [email or web address] is certified under the Clinical Laboratory Improvement Amendments of 1988 (CLIA) as qualified to perform high complexity clinical laboratory testing. PERFORMING LABORATORY: Technical component was performed by [facility], [address] [place] [address] (CLIA# [id number]). Professional interpretation was performed by [facility], [address] [place] [address] (CLIA#: [id number]). Diagnostician: Alfredito Luis MD Pathologist Electronically Signed 10/04/2024 Copies: ~ PATIENT NAME: MAGALIS VILLEGAS PATHOLOGY DATE OF : 72 REPORT #: [id number] PHYSICIAN: [facility] PATHOLOG[facility] PCP: ERIC PIERRE MD REPORT IS CONFIDENTIAL AND NOT TO BE RELEASED WITHOUT AUTHORIZATION
== END 2024-10-03 14:50 | disposition home or self-care (01) | DRG 572 ==
LOC: ED 15:20 → MS 15:22
PROVIDERS: Emergency Medicine; ADMIT Surgery; ATTEND Surgery
PROC: 0JB80ZZ Excision of Abdomen Subcutaneous Tissue and Fascia, Open Approach (ICD-10-PCS; principal; 2024-09-29 17:07)
DX: L02.211 Cutaneous abscess of abdominal wall (principal); J45.909 Unspecified asthma, uncomplicated; I10 Essential (primary) hypertension; F31.9 Bipolar disorder, unspecified; F41.9 Anxiety disorder, unspecified; M51.369 Other intervertebral disc degeneration, lumbar region without mention of lumbar back pain or lower extremity pain; G89.29 Other chronic pain; G47.30 Sleep apnea, unspecified; M79.7 Fibromyalgia; E11.9 Type 2 diabetes mellitus without complications; F17.210 Nicotine dependence, cigarettes, uncomplicated; Z96.652 Presence of left artificial knee joint; Z87.59 Personal history of other complications of pregnancy, childbirth and the puerperium; Z90.89 Acquired absence of other organs; Z90.710 Acquired absence of both cervix and uterus; Z90.49 Acquired absence of other specified parts of digestive tract; Z87.442 Personal history of urinary calculi; Z91.048 Other nonmedicinal substance allergy status; Z91.040 Latex allergy status; Z88.5 Allergy status to narcotic agent; Z88.8 Allergy status to other drugs, medicaments and biological substances; Z79.899 Other long term (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
CPT/HCPCS: 00790; 36415; 74177; 80048; 80053; 85025; 87070; 87075; 87205; 94762; 94799; 96365; 96375; 96376; A9270; G0378; J0131; J0330; J0690; J1100; J1815; J2003; J2405; J2704; J3010; J3490; J7121; Q9967

== ENCOUNTER 2024-10-07 15:23 | Emergency (ER) | payer BC, OTHER ==
[~2024-10-07] VITALS: Ht 152.4 cm; Wt 82.3 kg
[~2024-10-07 15:23] MED LIST changes: +CIPROFLOXACIN500 MG PO; +DOXYCYCLINE HY100 MG PO; +EPINEPHRIN0.3 MG/0.3 IM; +FLUCONAZOLE200 MG PO; +METRONIDAZOLE250 MG PO; +NICOTINE1 EAC2 TD
[2024-10-07] MEDS ORDERED: MORPHINE SULFATE 4 MG/ML VIAL IV ONE (16:45)
[2024-10-07] MEDS ORDERED: ondansetron HCL 4 MG/2 ML VIAL IV ONE (16:45)
[2024-10-07 17:52] LABS: HEMATOCRIT 33.1 % (35.0-50.0); HEMOGLOBIN 10.6 g/dL (12.0-18.0); MCH 27.9 (27-36); MCHC 32.1 g/dl (30-36); MCV 86.8 fl (81-99); PLATELET COUNT 917 K/uL (140-440); RBC 3.82 M/ul (4.3-5.7); RDW 19.1 (10.5-15.0)
[2024-10-07 18:04] LABS: ALBUMIN 2.6 g/dL (3.4-5.0); ALBUMIN/GLOBULIN RATIO 0.63 (1.1-2.4); ANION GAP 13.2 (7-21); BILIRUBIN, TOTAL 0.3 mg/dL (0.2-1.0); BUN/CREATININE RATIO 11.68 (6.0-28.6); CALCIUM 9.6 mg/dL (8.5-10.1); CREATININE, SERUM 0.77 mg/dL (0.55-1.02); POTASSIUM 4.2 mmol/L (3.5-5.1); PROTEIN, TOTAL 6.7 g/dL (6.4-8.2)
[2024-10-07 18:11] LABS: BASOPHILS, MANUAL DIFF 2; EOSINOPHILS, MANUAL DIFF 2; LYMPHOCYTES, MANUAL DIFF 18; MONOCYTES, MANUAL DIFF 4; NEUTROPHILS, MANUAL DIFF 74
[2024-10-07 18:24] LABS: BILIRUBIN, URINE NEGATIVE (negative); BLOOD/HGB, URINE MODERATE (Negative); KETONE, URINE NEGATIVE (Negative); LEUK ESTERASE, URINE TRACE (negative); NITRITE, URINE NEGATIVE (negative); PH, URINE 5.5 (5-7)
[2024-10-07 18:39] LABS: BACTERIA, URINE 1+ /hpf (negative); CASTS, URINE NONE SEEN \\lpf; COLLECTION TYPE, URINE CLEAN CATCH; CRYSTALS, URINE CALCIUM OXALATE 1+ (0-1+); EPITHELIAL CELLS, URINE SQUAMOUS 2+ /lpf (0-1+); RED BLOOD CELLS, URINE 21-40 /hpf (0-5); REFLEX CULTURE, URINE No (No)
[2024-10-07] MEDS ORDERED: HYDROCODONE/ACETA 5/325 TAB PO ONE (20:45)
[2024-10-07] MEDS ORDERED: HYDROCODONE BIT/ACETAMINOPHEN 5/325 MG 1 TAB HOME.PACK PO ONE (22:30)
[2024-10-07 22:37] VITALS: BP 137/61
== END 2024-10-07 22:37 | disposition home or self-care (01) ==
LOC: ED 15:23
PROVIDERS: Emergency Medicine
DX: S31.101A Unspecified open wound of abdominal wall, left upper quadrant without penetration into peritoneal cavity, initial encounter (principal); X58.XXXA Exposure to other specified factors, initial encounter; J45.909 Unspecified asthma, uncomplicated; I10 Essential (primary) hypertension; E11.9 Type 2 diabetes mellitus without complications; F17.200 Nicotine dependence, unspecified, uncomplicated; G47.30 Sleep apnea, unspecified; Z79.899 Other long term (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; Z79.51 Long term (current) use of inhaled steroids; Z91.018 Allergy to other foods; Z91.040 Latex allergy status; Z88.6 Allergy status to analgesic agent; Z88.5 Allergy status to narcotic agent; Z91.048 Other nonmedicinal substance allergy status
CPT/HCPCS: 36415; 74177; 80053; 81001; 85025; 96375; 99284-25; A9270; J2270; J2405; Q9967

== ENCOUNTER 2024-10-17 04:41 | Emergency (ER) | payer BC, OTHER ==
[~2024-10-17] VITALS: Ht 152.4 cm; Wt 86.6 kg
[2024-10-17 05:16] VITALS: BP 116/95
== END 2024-10-17 05:19 | disposition home or self-care (01) ==
LOC: ED 04:41
DX: T85.698A Other mechanical complication of other specified internal prosthetic devices, implants and grafts, initial encounter (principal); Y83.8 Other surgical procedures as the cause of abnormal reaction of the patient, or of later complication, without mention of misadventure at the time of the procedure; J45.909 Unspecified asthma, uncomplicated; I10 Essential (primary) hypertension; E11.9 Type 2 diabetes mellitus without complications; F31.9 Bipolar disorder, unspecified; F17.200 Nicotine dependence, unspecified, uncomplicated; Z88.5 Allergy status to narcotic agent; Z88.8 Allergy status to other drugs, medicaments and biological substances; Z88.4 Allergy status to anesthetic agent; Z91.040 Latex allergy status; Z79.899 Other long term (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
CPT/HCPCS: 99283

== ENCOUNTER 2024-11-01 00:28 | Emergency (ER) | payer BC, OTHER ==
[~2024-11-01] VITALS: Ht 152.4 cm; Wt 85.0 kg
[2024-11-01] MEDS ORDERED: HYDROmorphone HCL 1 MG/ML SYR IV PRN (00:45)
[2024-11-01] MEDS ORDERED: ondansetron HCL 4 MG/2 ML VIAL IV ONE (00:45)
[2024-11-01] MEDS ORDERED: SODIUM CHLORIDE 0.9% 1,000 ML IV ONE (00:45)
[2024-11-01] MEDS ORDERED: ONDANSETRON ODT8 MG PO (00:47)
[2024-11-01 01:15] LABS: EOSINOPHILS 4.1 % (0-6); HEMATOCRIT 38.4 % (35.0-50.0); HEMOGLOBIN 12.4 g/dL (12.0-18.0); LYMPHOCYTES 29.4 % (24-44); MCH 27.8 (27-36); MCHC 32.3 g/dl (30-36); MONOCYTES 5.8 % (0-12); NEUTROPHILS 59.7 % (39-80); PLATELET COUNT 593 K/uL (140-440); RBC 4.46 M/ul (4.3-5.7); RDW 20.7 (10.5-15.0)
[2024-11-01 01:29] LABS: ALBUMIN 3.3 g/dL (3.4-5.0); ALBUMIN/GLOBULIN RATIO 0.79 (1.1-2.4); ANION GAP 14.4 (7-21); BILIRUBIN, TOTAL 0.4 mg/dL (0.2-1.0); BUN/CREATININE RATIO 18.18 (6.0-28.6); CALCIUM 9.7 mg/dL (8.5-10.1); CREATININE, SERUM 0.77 mg/dL (0.55-1.02); POTASSIUM 4.4 mmol/L (3.5-5.1); PROTEIN, TOTAL 7.5 g/dL (6.4-8.2)
[2024-11-01 03:03] LABS: BILIRUBIN, URINE NEGATIVE (negative); BLOOD/HGB, URINE LARGE (Negative); KETONE, URINE NEGATIVE (Negative); LEUK ESTERASE, URINE NEGATIVE (negative); NITRITE, URINE NEGATIVE (negative)
[2024-11-01 03:17] LABS: RED BLOOD CELLS, URINE 21-40 /hpf (0-5)
[2024-11-01 03:18] LABS: CASTS, URINE NONE SEEN \\lpf; CRYSTALS, URINE NONE SEEN (0-1+); EPITHELIAL CELLS, URINE 0 /lpf (0-1+)
[2024-11-01 03:19] LABS: BACTERIA, URINE 1+ /hpf (negative); COLLECTION TYPE, URINE CATH; REFLEX CULTURE, URINE Yes (No)
[2024-11-01] MEDS ORDERED: COLACE100 MG PO (03:24)
[2024-11-01] MEDS ORDERED: PERCOCET 5-3251 EACH PO (03:24)
[2024-11-01] MEDS ORDERED: ONDANSETRON 4 MG HOME.PACK SL ONE (03:30)
[2024-11-01] MEDS ORDERED: CEFDINIR 300 MG HOME.PACK PO ONE (03:30)
[2024-11-01] MEDS ORDERED: OXYCODONE/ACETAMINOPHEN 1 TAB HOME.PACK PO ONE (03:30)
[2024-11-01 03:45] VITALS: BP 137/83
== END 2024-11-01 03:45 | disposition home or self-care (01) ==
LOC: ED 00:28
PROVIDERS: Family Medicine
DX: N13.6 Pyonephrosis (principal); G89.18 Other acute postprocedural pain; J45.909 Unspecified asthma, uncomplicated; I10 Essential (primary) hypertension; E11.9 Type 2 diabetes mellitus without complications; F17.200 Nicotine dependence, unspecified, uncomplicated; Z91.02 Food additives allergy status; Z91.040 Latex allergy status; Z91.048 Other nonmedicinal substance allergy status; Z88.5 Allergy status to narcotic agent; Z88.6 Allergy status to analgesic agent; Z88.8 Allergy status to other drugs, medicaments and biological substances; Z79.899 Other long term (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
CPT/HCPCS: 36415; 51701; 74177; 80053; 81001; 83690; 85025; 87088; 99284-25; A9270; J1171; J2405; J7030

== ENCOUNTER 2024-12-23 14:45 | Emergency (ER) | payer BC, OTHER ==
[~2024-12-23] VITALS: Ht 152.4 cm; Wt 85.9 kg
[~2024-12-23 14:45] MED LIST changes: +COLACE100 MG PO; +PERCOCET 5-3251 EACH PO
[2024-12-23] MEDS ORDERED: METHOCARBAMOL750 MG PO (15:04)
[2024-12-23] MEDS ORDERED: MORPHINE SULFATE 4 MG/ML VIAL IV ONE (15:45)
[2024-12-23] MEDS ORDERED: ondansetron HCL 4 MG/2 ML VIAL IV ONE (15:45)
[2024-12-23 15:46] LABS: BASOPHILS 0.7 % (0.1-1.2); EOSINOPHILS 1.6 % (0.7-5.8); HEMATOCRIT 38.7 % (34.1-44.9); HEMOGLOBIN 11.7 g/dL (11.2-15.7); LYMPHOCYTES 26.6 % (19.3-51.7); MCH 27.2 PG (25.6-32.2); MCHC 30.2 g/dL (32.2-35.5); MONOCYTES 5.8 % (4.7-12.5); NEUTROPHILS 64.8 % (34.0-71.1); PLATELET COUNT 540 K/uL (182-369)
[2024-12-23 16:02] LABS: ALBUMIN 2.7 g/dL (3.4-5.0); ALBUMIN/GLOBULIN RATIO 0.64 (1.1-2.4); ANION GAP 11.1 (7-21); BILIRUBIN, TOTAL 0.5 mg/dL (0.2-1.0); BUN/CREATININE RATIO 12.65 (6.0-28.6); CALCIUM 9.2 mg/dL (8.5-10.1); CREATININE, SERUM 0.79 mg/dL (0.55-1.02); POTASSIUM 4.1 mmol/L (3.5-5.1); PROTEIN, TOTAL 6.9 g/dL (6.4-8.2)
[2024-12-23] MEDS ORDERED: HYDROCODONE/ACETA 5/325 TAB PO ONE (17:00)
[2024-12-23] MEDS ORDERED: TRANEXAMIC ACID 1,000 MG/10 ML AMP NAS ONE (17:15)
[2024-12-23] MEDS ORDERED: OXYMETAZOLINE HCL 30 ML BTL NAS ONE (17:15)
[2024-12-23 17:23] VITALS: BP 129/74
== END 2024-12-23 17:23 | disposition home or self-care (01) ==
LOC: ED 14:45
PROVIDERS: Emergency Medicine
DX: N13.2 Hydronephrosis with renal and ureteral calculous obstruction (principal); I10 Essential (primary) hypertension; E11.9 Type 2 diabetes mellitus without complications; J45.909 Unspecified asthma, uncomplicated; F17.200 Nicotine dependence, unspecified, uncomplicated; Z91.040 Latex allergy status; Z88.8 Allergy status to other drugs, medicaments and biological substances; Z79.84 Long term (current) use of oral hypoglycemic drugs; Z79.899 Other long term (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
CPT/HCPCS: 36415; 74177; 80053; 83690; 85025; 85060; 96375; 99284-25; J2270; J2405; Q9967

== ENCOUNTER 2025-01-08 22:50 | Emergency (ER) | payer BC, OTHER ==
[~2025-01-08] VITALS: Ht 152.4 cm; Wt 85.9 kg
[~2025-01-08 22:50] MED LIST changes: +METHOCARBAMOL750 MG PO
[2025-01-08] MEDS ORDERED: HYDROCODONE BIT/ACETAMINOPHEN 5/325 MG 1 TAB HOME.PACK PO ONE (23:45)
[2025-01-08 23:48] VITALS: BP 175/88
== END 2025-01-08 23:49 | disposition home or self-care (01) ==
LOC: ED 22:50
DX: G89.18 Other acute postprocedural pain (principal); R10.12 Left upper quadrant pain; Z91.018 Allergy to other foods; Z88.8 Allergy status to other drugs, medicaments and biological substances; Z79.899 Other long term (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
CPT/HCPCS: 76705; 99283-25; A9270

== ENCOUNTER 2025-02-19 05:25 | Day surgery (SDC) | payer BC, OTHER ==
[~2025-02-19] VITALS: Ht 154.9 cm; Wt 86.0 kg
[~2025-02-19 05:25] MED LIST changes: +ALLERGY RELIEF10 M1 PO; +LACTATED RINGER'S 1,000 ML IV SCH; +TYLENOL EXTRA500 MG PO
[2025-02-19 06:01] VITALS: BP 158/95
[2025-02-19] MEDS ORDERED: CHILDREN'S FLO5.9 ML NAS (06:11)
[2025-02-19] MEDS ORDERED: CEFAZOLIN SODIUM 2 GM/20 ML SYR IV SCH (07:00)
[2025-02-19] MEDS ORDERED: IBLOOD GLUCOSE TEST STRIP 1 EA TEST VI PRN (07:00)
[2025-02-19] MEDS ORDERED: LIDOCAINE HCL 1% 5 ML SDV INJ ONE (07:00)
[2025-02-19] MEDS ORDERED: fentaNYL citrate 100 MCG/2 ML VIAL ONE (07:18)
[2025-02-19] MEDS ORDERED: MIDAZOLAM HCL 2 MG/2 ML VIAL ONE (07:18)
[2025-02-19] MEDS ORDERED: OXYCODONE/APAP 5/325 TAB PO PRN (07:30)
[2025-02-19] MEDS ORDERED: PROMETHAZINE HCL 25 MG TAB PO PRN (07:30)
[2025-02-19] MEDS ORDERED: KETOROLAC TROMETHAMINE 15 MG/ML VIAL IV PRN (07:30)
[2025-02-19] MEDS ORDERED: HYDROmorphone HCL 1 MG/ML SYR IV PRN ×2 (07:30→10:00)
[2025-02-19] MEDS ORDERED: SUCCINYLCHOLINE IN 0.9% NACL 200 MG/10 ML SYRINGE ONE (08:53)
[2025-02-19] MEDS ORDERED: ROCURONIUM BROMIDE 50 MG/5 ML SYR ONE (08:53)
[2025-02-19] MEDS ORDERED: LIDOCAINE HCL 2% 5 ML SDV ONE (08:53)
[2025-02-19] MEDS ORDERED: KETOROLAC TROMETHAMINE 30 MG/ML VIAL ONE (08:53)
[2025-02-19] MEDS ORDERED: DEXAMETHASONE SOD PHOS 4 MG/ML VIAL ONE (08:53)
--- NOTE | 2025-02-19 09:42 | NUR ---
02/19/25 0942 Dara Saini 0932- PT PRESENTS TO PACU WITH OPA IN PLACE, NON REACTIVE TO STIMULUS, BREATHING EVEN AND NON LABORED, O2 AT 6L PER MASK. INTERMITTENT AIRWAY OBSTRUCTION, RESOLVED WITH HEAD POSITIONING. LR INFUSING TO RAC IV, ABD SOFT, NON DISTENDED. ALL MONITORS IN PLACE.
[2025-02-19] MEDS ORDERED: NALOXONE HCL 0.4 MG SYR IV PRN (10:00)
[2025-02-19] MEDS ORDERED: fentaNYL citrate 50 MCG/ML SDV IV PRN (10:00)
[2025-02-19] MEDS ORDERED: ACETAMINOPHEN 1,000 MG/100 ML VIAL IV ONE (10:00)
[2025-02-19] MEDS ORDERED: MEPERIDINE HCL 25 MG/1 ML VIAL IV PRN (10:00)
[2025-02-19 10:36] VITALS: BP 175/94
--- NOTE | 2025-02-19 10:44 | NUR ---
1030- PT TRANSFERED FROM PACU TO DAY SURGERY. BEDSIDE REPORT RECIEVED FROM EDNA ISRAEL. PT REPORTS 7/10 PAIN AND NOT NAUSEOUS. LR INFUSING. PT HAS NO DRESSINGS IN PLACE. HOT PACK PUT IN PLACE. PT HAS WATER AND APPLE SAUCE AT THE BED SIDE. ALL QUESTIONS AND CONCERNS ANSWERED. PT IS AWARE OF DISCHARGE CRITERIA.
[2025-02-19 11:41] VITALS: BP 151/81
--- NOTE | 2025-02-19 11:44 | NUR ---
1140- PT RESTING IN STRETCHER. VITAL SIGNS OBTAINED. LR INFUSING. NASAL CANNULA TITRATED DOWN TO 1L FROM 2L. PT REPORTS 8/10 PAIN. PAIN MEDICAITON GIVEN. PT FAMILY AT BEDSIDE. PT EATING PUDDING AND SIPPING ON WATER. PT AND FAMILY TALKING. VSS.
--- NOTE | 2025-02-19 12:02 | NUR ---
1200- PT FAMILY GIVEN PRESCIPTION PER PT REQUEST.
[2025-02-19 12:30] VITALS: BP 165/86
--- NOTE | 2025-02-19 12:51 | NUR ---
1230- PT IS RESTING IN STRETCHER TALKING WITH FAMILY AT THE BEDSIDE. CALL LIGHT IN REACH. PT IS EATING PUDDING AND CRACKERS AND SIPPING ON WATER AND DENIES ANY NAUSEA. PT REPORTS 6/10 PAIN, THAT IS BETTER. DISCHARGE INSTRUCTIONS GONE OVER, AND ALL QUESTIONS AND CONCERNS ANSWERED. LR INFUSING. VITAL SIGNS OBTAINED. PT O2 IS TURNED OFF.
[2025-02-19] MEDS ORDERED: SEVOFLURANE 250 ML BTL INH ONE (13:05)
[2025-02-19 14:00] VITALS: BP 169/106
--- NOTE | 2025-02-19 14:06 | NUR ---
1330- PT IS ABLE TO TRANSFER TO WHEELCHAIR AND PROPELLED TO THE RESTROOM. PT VOIDS 450ML OF CONSENTRATED YELLOW, ALMOST TEA COLORED URINE. PT IS ABLE TO TRANSFER BACK TO WHEELCHAIR AND BACK TO HER ROOM. 1400- VITAL SIGNS OBTAINED, IV REMOVED. PT REPORTS 5/10 PAIN AND NO NAUSEA. PT GETTING DRESSED WITH ASSISTANCE. ALL QUESTIONS AND CONCERNS ANSWERED. PT IS PROPELLED OUT OF DAY SURGERY BY EDNA GALEANO. PT HAS ALL BELONGINGS. PT DC AT THIS TIME.
[2025-02-22 05:46] LABS: CALCULI MASS 320 mg (())
== END 2025-02-19 14:00 | disposition home or self-care (01) ==
LOC: OPS 05:25 → DS 05:25 → OPS 07:30
PROVIDERS: ATTEND Urology
PROC: 0T778DZ Dilation of Left Ureter with Intraluminal Device, Via Natural or Artificial Opening Endoscopic (ICD-10-PCS; 2025-02-19)
PROC: 0TC48ZZ Extirpation of Matter from Left Kidney Pelvis, Via Natural or Artificial Opening Endoscopic (ICD-10-PCS; principal; 2025-02-19 07:30)
PROC: 0TC78ZZ Extirpation of Matter from Left Ureter, Via Natural or Artificial Opening Endoscopic (ICD-10-PCS; 2025-02-19 07:30)
DX: N13.2 Hydronephrosis with renal and ureteral calculous obstruction (principal); N39.41 Urge incontinence; E66.01 Morbid (severe) obesity due to excess calories; J45.20 Mild intermittent asthma, uncomplicated; F17.200 Nicotine dependence, unspecified, uncomplicated; Z98.84 Bariatric surgery status; Z79.899 Other long term (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; Z91.040 Latex allergy status; Z88.5 Allergy status to narcotic agent; Z88.8 Allergy status to other drugs, medicaments and biological substances; Z91.048 Other nonmedicinal substance allergy status
CPT/HCPCS: 00918; 74420; 82365; C1769; J0131; J0330; J0690; J1100; J1171; J1885; J2003; J2250; J2405; J2704; J3010; J3490; J7121; Q9967

== ENCOUNTER 2025-02-27 10:07 | Emergency (ER) | payer BC, OTHER ==
[~2025-02-27] VITALS: Ht 154.9 cm; Wt 86.0 kg
[~2025-02-27 10:07] MED LIST changes: +CHILDREN'S FLO5.9 ML NAS; -LACTATED RINGER'S 1,000 ML IV SCH
[2025-02-27 11:11] LABS: ALT (SGPT) 26.0 U/L (14-59); AST (SGOT) 16.0 U/L (15-37); GLOMERULAR FILTRATION RATE,EST 91.0 mL/min (>60); PROTEIN, TOTAL 6.8 g/dL (6.4-8.2); UREA NITROGEN 5.0 mg/dL (7-18)
[2025-02-27 11:29] LABS: BASOPHILS 0.7 % (0.1-1.2); EOSINOPHILS 2.5 % (0.7-5.8); LYMPHOCYTES 19.0 % (19.3-51.7); MCH 26.2 PG (25.6-32.2); MCHC 30.4 g/dL (32.2-35.5); MCV 86.2 fL (79.4-94.8); MONOCYTES 4.9 % (4.7-12.5); NEUTROPHILS 70.7 % (34.0-71.1); RBC 4.27 M/uL (3.93-5.22)
[2025-02-27] MEDS ORDERED: HYDROCODONE/ACETA 7.5/325 TAB PO ONE (11:45)
[2025-02-27] MEDS ORDERED: HYDROCODON-ACE1 EA11 PO (12:55)
[2025-02-27] MEDS ORDERED: CEPHALEXIN500 M1 PO (12:55)
[2025-02-27 13:15] VITALS: BP 136/99
== END 2025-02-27 13:16 | disposition home or self-care (01) ==
LOC: ED 10:07
PROVIDERS: Emergency Medicine
DX: L03.115 Cellulitis of right lower limb (principal); I10 Essential (primary) hypertension; E11.9 Type 2 diabetes mellitus without complications; F17.200 Nicotine dependence, unspecified, uncomplicated; Z91.018 Allergy to other foods; Z91.040 Latex allergy status; Z91.09 Other allergy status, other than to drugs and biological substances; Z88.8 Allergy status to other drugs, medicaments and biological substances; Z79.899 Other long term (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
CPT/HCPCS: 36415; 80053; 83880; 85025; 96374; 99283-25; A9270; J0696

== ENCOUNTER 2025-03-08 10:56 | Day surgery (SDC) | payer BC, OTHER ==
[~2025-03-08] VITALS: Ht 154.9 cm; Wt 133.0 kg
[~2025-03-08 10:56] MED LIST changes: +CEFAZOLIN SODIUM 3 GM/30 ML SYR IV SCH; +HYDROCODON-ACE1 EA11 PO; +HYDROmorphone HCL 1 MG/ML SYR IV PRN; +IBLOOD GLUCOSE TEST STRIP 1 EA TEST VI PRN; +LACTATED RINGER'S 1,000 ML IV SCH; +LIDOCAINE HCL 1% 5 ML SDV INJ ONE; +OXYCODONE/APAP 5/325 TAB PO PRN; +PHENAZOPYRIDINE HCL 100 MG TAB PO ONE; +TRAMADOL HCL 50 MG TAB PO PRN; +TRULICITY0.75 MG/0. SQ
[2025-03-08 11:31] VITALS: BP 144/106
[2025-03-08] MEDS ORDERED: CEPHALEXIN500 M1 PO (11:36)
[2025-03-08] MEDS ORDERED: LIDOCAINE HCL 2% 5 ML SDV ONE (12:40)
[2025-03-08] MEDS ORDERED: fentaNYL citrate 100 MCG/2 ML VIAL ONE ×2 (12:40→13:57)
[2025-03-08] MEDS ORDERED: IBLOOD GLUCOSE TEST STRIP 1 EA TEST VI PRN (14:45)
[2025-03-08] MEDS ORDERED: NALOXONE HCL 0.4 MG SYR IV PRN (14:45)
[2025-03-08] MEDS ORDERED: fentaNYL citrate 50 MCG/ML SDV IV PRN (14:45)
--- NOTE | 2025-03-08 14:50 | NUR ---
03/08/25 1450 Dianna Cleveland 1434-PT ARRIVES TO PACU, VIA STRETCHER, PT REACTIVE TO STIMULI BUT RESTS W/ EYES CLOSED, VSS ON 6L VIA MASK, RR EVEN AND UNLABORED. 1440-PT AWAKENS ON OWN BUT FALLS BACK TO SLEEP EASILY.
[2025-03-08 15:30] VITALS: BP 165/91
[2025-03-08] MEDS ORDERED: PHENAZOPYRIDINE HCL 100 MG TAB ONE (15:37)
--- NOTE | 2025-03-08 15:45 | NUR ---
1525- PT ARRIVES TO DAY SURGERY ROOM 10. PYRIDIUM GIVEN, SEE EMAR. CALL LIGHT IN REACH. BED IS LOCKED IN THE LOWEST POSITON. PT REPORTS 7/10 PAIN AND NO NAUSEA. ICE PACK IN PLACE. PT SIPPING ON WATER. DISCHARGE CRITERIA DISCUSSED AND PT IS UNDERSTANDING. LR INFUSING.
--- NOTE | 2025-03-08 16:25 | NUR ---
1545-PT REPORTS THAT SHE IS VOIDING IN THE BED. PT IS UNABLE TO STOP. 1600- PT IS ABLE TO GET UP TO THE BEDSIDE COMMODE WITH ASSISTANCE FROM 2 RNS. PT VOIDS 100ML OF BROWN TINGED URINE IN THE BEDSIDE COMMODE. PT BED AND GOWN CHANGED AT THIS TIME. PT LEGS WIPED DOWN WITH BABY WIPES. PT IS ABLE TO TRANSFER BACK INTO THE STRETCHER AT THIS TIME. PT LR IS LOCKED AT THIS TIME.
[2025-03-08 16:35] VITALS: BP 156/90
--- NOTE | 2025-03-08 16:37 | NUR ---
1630- PT IS RESTING IN STRETCHER. PUDDING AND JELLO PROVIDED PER PT REQUEST. PT SIPPING ON WATER. LR IS LOCKED. CALL LIGHT IN REACH AND BED IS LOCKED IN THE LOWEST POSITION. PT REPORTS 6/10 PAIN AND NAUSEA.
--- NOTE | 2025-03-08 17:43 | NUR ---
1724- DISCHARGE INFORMATION AND EDUCATION DISCUSSED AND ALL QUESTIONS AND CONCERNS ANSWERED. IV REMOVED. PT UP TO RESTROOM USING WHEELCHAIR. PT DRESSED WITH NURSE ASSISTANCE. PT HAS ALL BENLONGINGS AND IS ABLE TO TRANSFER BACK TO WHEELCHAIR. PT DC'S FROM DAY SURGERY AT THIS TIME AND IS ABLE TO TRANSFER FAMILY VEHILCE WITH NO PROBLEMS.
== END 2025-03-08 17:24 | disposition home or self-care (01) ==
LOC: DS 10:56
PROVIDERS: ATTEND Urology
PROC: 0T778DZ Dilation of Left Ureter with Intraluminal Device, Via Natural or Artificial Opening Endoscopic (ICD-10-PCS; 2025-03-08)
PROC: BT1FZZZ Fluoroscopy of Left Kidney, Ureter and Bladder (ICD-10-PCS; 2025-03-08)
PROC: 0TP98DZ Removal of Intraluminal Device from Ureter, Via Natural or Artificial Opening Endoscopic (ICD-10-PCS; principal; 2025-03-08 12:30)
DX: N20.2 Calculus of kidney with calculus of ureter (principal); E11.9 Type 2 diabetes mellitus without complications; E78.5 Hyperlipidemia, unspecified; J45.20 Mild intermittent asthma, uncomplicated; I10 Essential (primary) hypertension; K21.9 Gastro-esophageal reflux disease without esophagitis; F17.210 Nicotine dependence, cigarettes, uncomplicated; Z79.4 Long term (current) use of insulin; Z79.85 Long-term (current) use of injectable non-insulin antidiabetic drugs; Z88.5 Allergy status to narcotic agent; Z88.6 Allergy status to analgesic agent; Z88.8 Allergy status to other drugs, medicaments and biological substances; Z91.040 Latex allergy status; Z91.09 Other allergy status, other than to drugs and biological substances; Z90.49 Acquired absence of other specified parts of digestive tract
CPT/HCPCS: 74450; J0690; J2003; J2704; J3010; J7121; Q9958

== ENCOUNTER 2025-03-17 09:36 | Inpatient (IN) | payer BC, OTHER ==
[2025-03-17] VITALS (8 sets, daily range): BP systolic 122–134; BP diastolic 64–71
[~2025-03-17] VITALS: Ht 152.4 cm; Wt 102.9 kg
[~2025-03-17 09:36] MED LIST changes: -CEFAZOLIN SODIUM 3 GM/30 ML SYR IV SCH; +CIPROFLOXACIN750 MG PO; +GABAPENTIN400 MG PO; -HYDROmorphone HCL 1 MG/ML SYR IV PRN; -IBLOOD GLUCOSE TEST STRIP 1 EA TEST VI PRN; -LACTATED RINGER'S 1,000 ML IV SCH; +LEVOFLOXACIN500 MG PO; -LIDOCAINE HCL 1% 5 ML SDV INJ ONE; +METRONIDAZOLE500 MG PO; -OXYCODONE/APAP 5/325 TAB PO PRN; -PHENAZOPYRIDINE HCL 100 MG TAB PO ONE; +SUMATRIPTAN SU100 MG PO; -TRAMADOL HCL 50 MG TAB PO PRN
--- NOTE | 2025-03-17 11:08 | NUR ---
COMPLETED VITALS - TEMP. 99.5, BP 134/71, MAP 84, O2 99, RR 17, AND PULSE 92 (1109). PT IN BED WITH GOWN ON. VISITOR IN ROOM. CALL LIGHT WITHIN REACH.
--- NOTE | 2025-03-17 11:30 | NUR ---
New direct admit to the medical floor. Patient arrived alert and oriented x3, no acute distress. Vital signs are stable. Patient oriented to room and call light. Patient's at bedside. Call light within patient reach.
[2025-03-17] MEDS ORDERED: NICOTINE 14 MG/24 HR 1 EA TDSY TD SCH (11:40)
[2025-03-17] MEDS ORDERED: ACETAMINOPHEN 325 MG TAB PO PRN (11:45)
[2025-03-17] MEDS ORDERED: PANTOPRAZOLE SODIUM 40 MG TABEC PO SCH (11:54)
[2025-03-17] MEDS ORDERED: TRIMETHOPRIM/SULFAMETHOXAZOLE 1 EA TAB PO SCH (11:54)
[2025-03-17 11:59] LABS: MCH 25.1 PG (25.6-32.2); MCHC 30.7 g/dL (32.2-35.5); MCV 81.7 fL (79.4-94.8); RBC 3.39 M/uL (3.93-5.22)
[2025-03-17] MEDS ORDERED: GLUCAGON,HUMAN RECOMBINANT 1 MG/ML VIAL SUB-Q PRN (12:00)
[2025-03-17] MEDS ORDERED: DEXTROSE 5% 1,000 ML IV PRN (12:00)
[2025-03-17] MEDS ORDERED: PHARMACY RENAL DOSE ADJUSTMENT 1 DOSE MISC PO SCH (12:00)
[2025-03-17] MEDS ORDERED: IBLOOD GLUCOSE TEST STRIP 1 EA TEST XX PRN (12:00)
[2025-03-17] MEDS ORDERED: CIPROFLOXACIN 500 MG TAB PO SCH (12:00)
[2025-03-17] MEDS ORDERED: INSULIN LISPRO 100 UNIT/ML ML SUB-Q SCH (12:00)
[2025-03-17] MEDS ORDERED: IBLOOD GLUCOSE TEST STRIP 1 EA TEST XX SCH (12:00)
[2025-03-17] MEDS ORDERED: DEXTROSE 50% 50 ML SYR IV PRN ×2 (12:00)
[2025-03-17 12:14] LABS: ALT (SGPT) 16.0 U/L (14-59); AST (SGOT) 9.0 U/L (15-37); GLOMERULAR FILTRATION RATE,EST 94.0 mL/min (>60); PROTEIN, TOTAL 6.4 g/dL (6.4-8.2); UREA NITROGEN 5.0 mg/dL (7-18)
[2025-03-17 12:18] LABS: BANDS, MANUAL DIFF 1; BASOPHILS, MANUAL DIFF 1; LYMPHOCYTES, MANUAL DIFF 9; MONOCYTES, MANUAL DIFF 2; NEUTROPHILS, MANUAL DIFF 87
--- NOTE | 2025-03-17 12:33 | NUR ---
Tylenol 650mg po admin for reports of 6/10 low back pain.
--- NOTE | 2025-03-17 13:34 | NUR ---
PT RESTING IN BED. SHE ATE A SANDWICH MADE FROM HOME AND THE LUNCH BROUGHT BY THE [employer]. PT REPORTS NO PAIN AND THE PUREWICK IS IN THE CORRECT LOCATION. PT HAS FRESH ICE WATER AND HER CALL LIGHT. PT WAS BOOSTED UP IN BED.
--- NOTE | 2025-03-17 14:13 | NUR ---
Patient eating lunch in bed, no distress. Patient denies needs. Personal supplies and call light within reach.
--- NOTE | 2025-03-17 14:41 | NUR ---
[facility] - 1435.
[2025-03-17 14:42] LABS: BLOOD/HGB, URINE TRACE-I (Negative); KETONE, URINE NEGATIVE (Negative); LEUK ESTERASE, URINE TRACE (negative); NITRITE, URINE NEGATIVE (negative)
[2025-03-17 14:47] LABS: BACTERIA, URINE NONE SEEN /hpf (negative); CASTS, URINE NONE SEEN \\lpf; CRYSTALS, URINE NONE SEEN (0-1+); EPITHELIAL CELLS, URINE SQUAMOUS 1+ /lpf (0-1+); REFLEX CULTURE, URINE No (No)
[2025-03-17] MEDS ORDERED: GABAPENTIN 400 MG CAP PO SCH (15:00)
[2025-03-17] MEDS ORDERED: POTASSIUM CHLORIDE 10 MEQ TABCR PO ONE (17:30)
--- NOTE | 2025-03-17 18:00 | NUR ---
Admin robaxin 500mg po and tylenol 650mg po for reports of 7/10 back pain.
--- NOTE | 2025-03-17 18:43 | NUR ---
GOT PT FRESH ICE WATER, CHECKED ALEX AREA- PUREWICK WORKING WELL, NO LEAKING. GOT PT WARM BLANKET AND REMINDED HER NOT TO BEND THE ARM WITH THE IV IN IT. CALL LIGHT WITHIN REACH.
--- NOTE | 2025-03-17 19:42 | NUR ---
RECEIVED REPORT. PT ALERT IN BED. PROVIDED WARM BLANKETS ON REQUEST, NO OTHER NEEDS FOR NOW. CALL LIGHT IN REACH
--- NOTE | 2025-03-17 20:35 | NUR ---
PT REQUESTS HOME NORCO BE REORDERED, C/O PAIN IN BACK. NOTIFIED MD, SEE NEW ORDER FOR OXYCODONE 5MG.
--- NOTE | 2025-03-17 21:00 | NUR ---
VITALS, ASSESSMENT, EVENING MEDS. PT C/O PAIN IN BACK. REFRESHED ICE WATER. NO OTHER NEEDS, CALL LIGHT INREACH
[2025-03-17] MEDS ORDERED: OXYCODONE HCL 5 MG TAB PO PRN (22:45)
--- NOTE | 2025-03-17 23:04 | NUR ---
GIVEN PRN OXYCODONE 5MG FOR BACK PAIN. I&OS. NO OTHER NEEDS FOR NOW, [facility]
[2025-03-18] VITALS (11 sets, daily range): BP systolic 119–141; BP diastolic 61–93
--- NOTE | 2025-03-18 00:20 | NUR ---
GIVEN PRN TYLENOL AND ROBAXIN PER REQUEST. REFRESHED ICE WATER AND PROVIDED WARM BLANKET. NO OTHER NEEDS, SUPPORTIVE IN ROOM. CALL LIGHT IN REACH
--- NOTE | 2025-03-18 00:24 | NUR ---
VITALS. GIVEN PRN TYLENOL AND ROBAXIN. REFRESHED ICE WATER, PROVIDED WARM BLANKET. NO OTHER NEEDS, CALL LIGHT INR EACH
--- NOTE | 2025-03-18 03:22 | NUR ---
PT RESTING IN BED WITH EYES CLOSED, RISE AND FALL OF CHEST OBSERVED. CALL LIGHT IN REACH
[2025-03-18 05:16] LABS: MCH 25.8 PG (25.6-32.2); MCHC 31.1 g/dL (32.2-35.5); MCV 82.9 fL (79.4-94.8); RBC 3.22 M/uL (3.93-5.22)
[2025-03-18 05:27] LABS: GLOMERULAR FILTRATION RATE,EST 91.0 mL/min (>60); UREA NITROGEN 6.0 mg/dL (7-18)
[2025-03-18 05:35] LABS: BANDS, MANUAL DIFF 5; EOSINOPHILS, MANUAL DIFF 1; LYMPHOCYTES, MANUAL DIFF 18; MONOCYTES, MANUAL DIFF 6; NEUTROPHILS, MANUAL DIFF 70
--- NOTE | 2025-03-18 05:58 | NUR ---
VITALS. GIVEN PRN OXYCODNE 5MG FOR PAIN. CALL LIGHT IN REACH
--- NOTE | 2025-03-18 07:32 | NUR ---
PT RESTING IN BED AT TIME OF SHIFT REPORT, ON COUCH. FRESH H20 TO BEDSIDE CALL LIGHT IN REACH.
--- NOTE | 2025-03-18 08:04 | NUR ---
IN TO DO BLOOD SUGAR. SUGAR TAKEN AND DOCUMENTED. PATIENT UP TO BSC THEN TO CHAIR, 1PA PIVOT TRANSFER. BED BATH GIVEN. ALEX CARE, SKIN CARE, AM CARE DONE. NEW ATTENDS AND GOWN PROVIDED. LINENS CHANGED. NEW PUREWICK PLACED. IN ROOM. CALL LIGHT IN REACH. NO FURTHER NEEDS AT THIS TIME.
--- NOTE | 2025-03-18 08:26 | NUR ---
PT HAD BEDBATH THEN UP TO THE CHAIR FOR MORNING MEAL. CONTINUES IN THE ROOM. CALL LIGHT IN REACH
[2025-03-18] MEDS ORDERED: MAGNESIUM SULFATE 2 GM/50 ML BAG IV SCH (08:30)
[2025-03-18] MEDS ORDERED: ENOXAPARIN SODIUM 40 MG/0.4 ML SYR SUB-Q SCH (09:00)
--- NOTE | 2025-03-18 09:17 | NUR ---
PT TO TOILET FOR ANOTHER BM. TRANSFER DIFFICULT PT C/O KNEE PAIN. PAIN MEDS PROVIDED EARLIER, PAIN SEEMED TO SUBSIDE AT REST. PT DOWN TO C/T VIA W/C
--- NOTE | 2025-03-18 10:16 | NUR ---
PT RESTING IN BED MG INFUSING PER ORDERS. IV SITE INTACT MIDLINE TO BE PLACED LATER TODAY.
--- NOTE | 2025-03-18 10:43 | NUR ---
PATIENT IN BED RESTING AT THIS TIME. IN ROOM. VITALS AND I&O'S DONE AND CHARTED. CALL LIGHT IN REACH. NO FURTHER NEEDS AT THIS TIME.
--- NOTE | 2025-03-18 10:50 | NUR ---
PT CONTINUES RESTING IN BED, PRESENT IN THE ROOM. CALL LIGHT AND NEEDED ITEMS IN REACH
--- NOTE | 2025-03-18 12:30 | NUR ---
MIDLINE INSERTION NOTE: ASKED BY DR. ZAIDI TO EVAL PATIENT FOR POTENTIAL MIDLINE PLACEMENT. PATIENT HAS IV 18 G IN RIGHT UPPER ARM CURRENTLY. LEFT ARM EVALUATED FIRST AND CEPHALIC VEIN IS VISIBLE BUT NOT STRAIGHT, AND NOT A GOOD CANDIDATE. BASILIC VEIN IS LARGE, STRAIGHT AND EASILY COLLAPSABLE. ESTIMATED BY SITE RITE US THAT AN 18G WOULD TAKE UP ABOUT 34% OF VEIN DIAMETER. 1% LIDO USED TO NUMB SKIN AFTER CHLORAPREP USED. VEIN ACCESSED ON 1ST ATTEMPT AND MIDLINE GUIDED INTO VEIN. DIFFICULTY WITH THREADING CATHETER COMPLETELY IN BUT BLOOD RETURN IS PRESENT. ABLE TO FLOAT CATHETER IN MUCH POSSIBLE. 1 CM IS LEFT EXPOSED. BLOOD RETURN IS STILL ABLE TO BE ASPIRATED WHEN TENSION IS PLACED ON CATHETER AND ASK WELL TENSION PULLED UPWARD PULLING LARGE SKIN FLAP UP ON UPPER ARM. EDUCATION MATERIAL LEFT IN CHART AND REPORT GIVEN TO EDNA AYALA.
--- NOTE | 2025-03-18 12:33 | NUR ---
MIDLINE INSERTION WELL TOLERATED. PT ASSISTED TO REPOSITION IN BED FOR NOON MEAL. CALL LIGHT IN REACH
--- NOTE | 2025-03-18 14:07 | NUR ---
medications reconciled with pharmacy records and patient interview
--- NOTE | 2025-03-18 14:15 | NUR ---
PT C/O IRRITATION AT RIGHT ARM SL SIGHT. MIDLINE IS IN PLACE SL DC'D PER HER REQUEST. DENIES OTHER NEEDS OF. VISITORS PRESENT X2
--- NOTE | 2025-03-18 14:32 | NUR ---
PATIENT IN BED RESTING AT THIS TIME. VITALS AND I&O'S DONE AND CHARTED. CALL LIGHT IN REACH. NO FURTHER NEEDS AT THIS TIME.
--- NOTE | 2025-03-18 19:35 | NUR ---
RECEIVED REPORT. RESPONDED TO CALL LIGHT, PT ASKS ASSISTANCE OPENING SHERBET. NO OTHER NEEDS PRESENTLY, PT REPORTS NO PAIN AT NEW MIDLINE SITE. CALL LIGHT KATY
--- NOTE | 2025-03-18 20:24 | NUR ---
VITALS, ASSESSMENT, EVENING MEDS. PT MIDLINE FLUSHING WELL WITH BLOOD RETURN, PT REPORTS NO PAIN AT SITE. PROVIDED WARM BLANKETS, REFRESHED WATER, GIVEN HEAT PACK. WILL CHECK BG LATER IN EVENING PT RECENTLY HAD SORBET. NO OTHER NEEDS FOR NOW, CALL LGT IN REACH
--- NOTE | 2025-03-18 22:00 | NUR ---
GIVEN INSULIN FOR BG OF 195. ALSO GIVEN OXYCODONE 5MG FOR BACK PAIN. REFRESHED ICE WATER. NO OTHER NEEDS FOR NOW, CALL LIGHT IN REACH
[2025-03-19] VITALS (9 sets, daily range): BP systolic 120–144; BP diastolic 72–83
--- NOTE | 2025-03-19 01:34 | NUR ---
PATIENT CALLED FOR ICE WATER AND WARM BLANKET. PROVIDED. NO OTHER NEEDS AT THIS TIME.
--- NOTE | 2025-03-19 02:16 | NUR ---
PT RESTING IN BED WITH EYES CLOSED, RISE AND FALL OF CHEST OBSERVED. [facility]
--- NOTE | 2025-03-19 03:06 | NUR ---
PT REPORTS PAIN OF L SHOULDER. GIVEN PRN TYLENOL AND ROBAXIN. REFRESHED ICE WATER. NO OTHER NEEDS, [facility]
--- NOTE | 2025-03-19 05:03 | NUR ---
PT RESTING IN BED WITH EYES CLOSED. RISE AND FALL OF CHEST OBSERVED. CALL LIGHT INREACH
[2025-03-19 05:25] LABS: BASOPHILS 0.3 % (0.1-1.2); EOSINOPHILS 0.8 % (0.7-5.8); LYMPHOCYTES 14.7 % (19.3-51.7); MCH 25.0 PG (25.6-32.2); MCHC 30.9 g/dL (32.2-35.5); MCV 81.0 fL (79.4-94.8); MONOCYTES 6.5 % (4.7-12.5); NEUTROPHILS 64.2 % (34.0-71.1); RBC 3.36 M/uL (3.93-5.22)
[2025-03-19 05:37] LABS: GLOMERULAR FILTRATION RATE,EST 87.0 mL/min (>60); UREA NITROGEN 8.0 mg/dL (7-18)
--- NOTE | 2025-03-19 06:54 | NUR ---
WARM PACK WRAPPED WITH PILLOW CASE PROVIDED PER PATIENT'S REQUEST.
--- NOTE | 2025-03-19 07:25 | NUR ---
PT RESTING EYES CLOSED AT TIME OF SHIFT REPORT LEFT UNDISTURBED. CALL LIGHT AND NEEDED ITEMS IN REACH.
--- NOTE | 2025-03-19 08:20 | NUR ---
MED REC COMPLETE
--- NOTE | 2025-03-19 09:13 | NUR ---
PT IS UP IN THE CHAIR COMPLETES MORNING MEAL. DENIES OTHER NEEDS AT THIS TIME
[2025-03-19 09:49] LABS: BASOPHILS, MANUAL DIFF 0; EOSINOPHILS, MANUAL DIFF 1; LYMPHOCYTES, MANUAL DIFF 14; MONOCYTES, MANUAL DIFF 8; NEUTROPHILS, MANUAL DIFF 70
[2025-03-19 09:50] LABS: BANDS, MANUAL DIFF 7
--- NOTE | 2025-03-19 10:31 | NUR ---
PT CALLS APPROPRIATELY FOR UP TO THE TOILET IS ABLE TO RESIDENTIAL LIVING ASSISTANT HER BOWELS THEN REQUESTS BACK TO BED. AGREES SHE IS COMFORTABLE AND PAIN MED EFFECTIVE.
--- NOTE | 2025-03-19 12:02 | NUR ---
PT ASSISTED TO REPOSTION FOR NOON MEAL. SHE AGREES SHE IS COMFORTABLE AND HAS EVERYTHING SHE NEEDS.
--- NOTE | 2025-03-19 13:20 | NUR ---
PT RESTING EYES CLOSED
--- NOTE | 2025-03-19 13:32 | NUR ---
UR CLINICAL REVIEW: [facility] REVIEW MEET INPT FOR INFECTIOUS CONDITION GRG WITH NEED FOR IV FUNGAL TREATMENT [facility] INPT 03/17/25 @ 1142 ORDER MATCHES REG RECORDS FAXED TO [facility] FOR AUTH REVIEW DISCHARGE TO HOME WHEN STABLE 03/20/25 DC REVIEW
--- NOTE | 2025-03-19 14:21 | NUR ---
PT TALKING ACTIVELY WITH VISITOR DENIES NEEDS
--- NOTE | 2025-03-19 14:30 | NUR ---
Spoke with pt, spouse and daughter. Pt states she returned as her culture grew yeast and she was notified to return. Pt denies any changes. She cont. to live with spouse. She is mostly wc bound, she does pivot transfer. Pt is short and states this is very difficult here as the beds are high and her feet do not reach the ground. She denies any needs at this time. Plans on dc to home when Iv medications are completed.
--- NOTE | 2025-03-19 16:00 | NUR ---
REPORT RECIEVED FROM EDNA AYALA. PATIENT RESTING IN BED AND IS WITHOUT ANY NEEDS AT THIS TIME. CALL LIGHT AND PERSONAL BELONGINGS ARE WITHIN REACH.
--- NOTE | 2025-03-19 17:30 | NUR ---
PATIENT RESTING IN BED EATING DINNER AND IS WITHOUT ANY NEEDS AT THIS TIME. NO INSULIN GIVEN DUE TO CBG WITHIN RANGE. CALL LIGHT AND PERSONAL BELONGINGS ARE WITHIN REACH.
--- NOTE | 2025-03-19 18:17 | NUR ---
PATIENT RESTING IN BED. PRASANNA PAINTING IN ROOM ASSISTING WITH VITAL SIGNS AND ASSISTING PATIENT UP TO BEDSIDE COMMODE FOR BM.
--- NOTE | 2025-03-19 18:25 | NUR ---
PATIENT MEDICATED PER EMAR FOR 8/10 BACK PAIN. PATIENT WITHOUT FURTHER NEEDS AT THIS TIME. CALL LIGHT AND PERSONAL BELONGINGS ARE WITHIN REACH.
--- NOTE | 2025-03-19 18:38 | NUR ---
PATIENT UP TO BSC AND BACK TO BED, 2PA PIVOT TRANSFER. ALEX CARE DONE. NEW PUREWICK PLACED. CALL LIGHT IN REACH. NO FURTHER NEEDS AT THIS TIME.
--- NOTE | 2025-03-19 22:19 | NUR ---
CALL LIGHT ANSWERED. pt REQUESTS HER FEET TO BE UNCOVERED. STATES SHE TRIED TO PULL ON SHEET AND COULDN'T GET IT. ASSISTED pt. DENIES ADDITONAL NEEDS. CALL LIGHT IN REACH.
--- NOTE | 2025-03-19 23:37 | NUR ---
PT RESTING WITH EYES CLOSED, CALL LIGHT WITHIN REACH. ALL PT CARE NEEDS MET, WILL ALLOW PT TO REST AT THIS TIME.
[2025-03-20] VITALS (12 sets, daily range): BP systolic 141–174; BP diastolic 69–94
--- NOTE | 2025-03-20 00:05 | NUR ---
Pt report received from EDNA Meraz.
--- NOTE | 2025-03-20 02:36 | NUR ---
In with pt in response to call light for request for warm blanket. Pt is A&O, laying supine in bed with HOB elevated. Advised pt that I will change her purewick at this time and assess her VS. Pt provided with two warm blankets, denies further needs at this time. Shortly after I left her room, making sure to ask her if there was anything else she needed, the pt used her call light again and requested a hot pack, which was brought to her.
--- NOTE | 2025-03-20 05:07 | NUR ---
In with pt in response to call light, requesting pain medication. Pt reports her pain is 9 out of 10 in her low back, right side. Pt was medicated with oxy and robaxin per emar and her iced water refreshed. Adjusted pt's blankets at her request. Call light, bedside tables, personal belongings in reach.
[2025-03-20 05:38] LABS: MCH 24.8 PG (25.6-32.2); MCHC 30.4 g/dL (32.2-35.5); MCV 81.6 fL (79.4-94.8); RBC 3.43 M/uL (3.93-5.22)
[2025-03-20 05:48] LABS: GLOMERULAR FILTRATION RATE,EST 98.0 mL/min (>60); UREA NITROGEN 13.0 mg/dL (7-18)
[2025-03-20 05:55] LABS: BANDS, MANUAL DIFF 5; EOSINOPHILS, MANUAL DIFF 2; LYMPHOCYTES, MANUAL DIFF 24; MONOCYTES, MANUAL DIFF 6; NEUTROPHILS, MANUAL DIFF 63
--- NOTE | 2025-03-20 06:55 | NUR ---
In with pt in response to call light to use the commode. SBA as pt transferred herself to the edge of the bed, used my arm to move herself to a standing position, then pivot to the BSC. Call light placed within reach.
--- NOTE | 2025-03-20 07:42 | NUR ---
MORNING REPORT RECIEVED FROM EDNA WAKEFIELD. PT SITING UP IN BED AWAKE AND ALERT AT THIS TIME. PT HAS MODERATE PAIN IN THEIR LOWER BACK AND WAS GIVEN A HEAT PACK. PT DENIES ANY OTHER NEEDS AT THIS TIME AND HAS CALL LIGHT IN REACH.
--- NOTE | 2025-03-20 08:38 | NUR ---
PATIENT IN BED RESTING. BLOOD SUGAR TAKEN, RN NOTIFIED OF RESULT. PATIENT REFUSED TO GET UP TO CHAIR AT THIS TIME. CALL LIGHT IN REACH. NO FURTHER NEEDS AT THIS TIME.
[2025-03-20] MEDS ORDERED: MAGNESIUM SULFATE 2 GM/50 ML BAG IV SCH (09:00)
--- NOTE | 2025-03-20 09:55 | NUR ---
PT SITTING UP IN BED AWAKE AND ALERT, PT DENIES INTERVENTIONS FOR PAIN AT THIS TIME AND TOLERATED BREAKFAST WELL. PT HAS NO CONCERNS AND CALL LIGHT IN REACH IF NEEDED.
--- NOTE | 2025-03-20 10:26 | NUR ---
IN TO DO VITALS AND I&O'S. BED BATH GIVEN. ALEX CARE, SKIN CARE DONE. SHAMPOO CAP USED. NEW PUREWICK IN PLACE. PATIENT UP TO CHAIR, 2PA PIVOT TRANSFER. LINENS CHANGED. CALL LIGHT IN REACH. NO FURTHER NEEDS AT THIS TIME.
--- NOTE | 2025-03-20 10:45 | NUR ---
PT NOT AVAILABLE FOR VISIT. PROVIDED PRAYER.
--- NOTE | 2025-03-20 10:50 | NUR ---
PT SITTING UP IN CHAIR AT THIS TIME TALKING ON PHONE, PT DENIES ANY NEEDS AT THIS TIME CALL LIGHT IN REACH.
--- NOTE | 2025-03-20 11:44 | NUR ---
PT USED CALL LIGHT TO ASK FOR HELP TO THE BSC. PT TOLERATED WELL AND GIVEN CALL LIGHT TO USE ONCE FINISHED.
--- NOTE | 2025-03-20 13:10 | NUR ---
Checked with Tainocencionia to see if she has any needs. Pt declines. No CM needs today.
--- NOTE | 2025-03-20 13:23 | NUR ---
PT LAYING IN BED WITH EYES CLOSED, CHEST RISE EQUAL BILAT. PT HAS CALL LIGHT IN REACH AT THIS TIME IF NEEDED.
--- NOTE | 2025-03-20 13:58 | NUR ---
PATIENT IN BED RESTING AT THIS TIME. VITALS AND I&O'S DONE AND CHARTED. FRESH WATER GIVEN. CALL LIGHT IN REACH. NO FURTHER NEEDS AT THIS TIME.
--- NOTE | 2025-03-20 14:14 | NUR ---
PT LAYING IN BED WITH EYES CLOSED CHEST RISE EQUAL BILAT, AND HAS CALL LIGHT IN REACH CURRENTLY.
--- NOTE | 2025-03-20 15:10 | NUR ---
PT SITTING UP IN BED, PT DENIES PAIN, AND HAS NO CONCERNS. PT IS CURRENTLY IN ROOM SITTING AT PT BEDSIDE AND PT CALL LIGHT IN REACH.
--- NOTE | 2025-03-20 17:06 | NUR ---
PATIENT GIVEN ONE UNIT OF SQ INSULIN TO BACK OF RIGHT ARM FOR BG OF 175. PATIENT DENIES OTHER NEEDS AT THIS TIME.
--- NOTE | 2025-03-20 18:02 | NUR ---
PT SITTING UP ON BSC IN ROOM AT THIS TIME, PT DENIES NEEDS AND HAS CALL LIGHT IN REACH WHEN NEEDED.
--- NOTE | 2025-03-20 18:11 | NUR ---
ANSWERED CALL LIGHT, PT NEEDS BACK TO BED FROM COMMODE. PT ASSISTED BACK TO BED. REPLACED THE PUREWICK. REPLACED WARM PACK PER PATIENT'S REQUEST.PT HAS NO FURTHER NEEDS AT THIS TIME. CALL LIGHT WITH IN REACH.
--- NOTE | 2025-03-20 19:27 | NUR ---
RECEIVED REPORT. RESOURCE RN GIVEN TYLENOL AND OXYCODONE. VISITORS IN ROOM. CALL LIGHT IN REACH
--- NOTE | 2025-03-20 21:57 | NUR ---
VITALS, ASSESSMENT, EVENIGN MEDS. GIVEN PRN ROBAXIN FOR BACK PAIN. 3 UNITS OF INSULIN FOR BG OF 206. GIVEN VANILLA PUDDING PER REQUEST. NO OTHER NEEDS, CALL LGT IN REACH
--- NOTE | 2025-03-20 23:57 | NUR ---
PROVIDED ICE WATER ON REQUEST. NO OTHER NEEDS FOR NOW, CALL LIGHT KATY
[2025-03-21] VITALS (7 sets, daily range): BP systolic 115–148; BP diastolic 58–90
--- NOTE | 2025-03-21 01:40 | NUR ---
ASSISTED PT WITH BLANKET PER REQUEST. NO OTHER NEEDS, CALL LIGHT INREACH
--- NOTE | 2025-03-21 02:40 | NUR ---
GIVEN PRN OXYCODONE 5MG AND TYLENOL PER REQUEST. UNABLE TO SCAN D/T MEDITECH DOWNTIME. REFRESHED ICE WATER. NO OTHER NEEDS, CALL LIGHT IN REACH
--- NOTE | 2025-03-21 04:48 | NUR ---
GIVEN PRN ROBAXIN FOR PAIN. REFRESHED ICE WATER. GIVEN SÁNCHEZ SORBET ON REQUEST. NO OTHER NEEDS FOR NOW, CALL LIGHT MEÑOCH
[2025-03-21 05:43] LABS: MCH 25.1 PG (25.6-32.2); MCHC 30.7 g/dL (32.2-35.5); MCV 81.6 fL (79.4-94.8); RBC 3.47 M/uL (3.93-5.22)
[2025-03-21 05:54] LABS: GLOMERULAR FILTRATION RATE,EST 88.0 mL/min (>60); UREA NITROGEN 13.0 mg/dL (7-18)
[2025-03-21 05:57] LABS: BANDS, MANUAL DIFF 3; EOSINOPHILS, MANUAL DIFF 2; LYMPHOCYTES, MANUAL DIFF 22; MONOCYTES, MANUAL DIFF 2; NEUTROPHILS, MANUAL DIFF 71
--- NOTE | 2025-03-21 07:30 | NUR ---
MORNING REPORT RECIEVED FROM EDNA VIVEROS. PT LAYING IN BED WITH EYES CLSOED CHEST RISE EQUAL BILAT AND HAS CALL LIGHT IN REACH IF NEEDED. PT HAS NO ACUTE EVENTS IN THE NIGHT AND LOOKS TO BE COMFORTABLE AT THIS TIME.
--- NOTE | 2025-03-21 10:00 | NUR ---
Spoke with Mendoza. She is resting. Denies needs. She is bored. Initially declined word search or coloring book. Then states she will take a coloring book. She asks about nurses speaking with the [facility]. I let her know I am not aware of this. I spoke with the charge nurse and when Dr. Feliz spoke with her he had stated he was speaking with ID, Infectious Disease. I updated the patient. She denies other needs. 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
--- NOTE | 2025-03-21 10:15 | NUR ---
PT SITTING UP IN BED AT THIS TIME, PT DENIES ANY NEEDS AT THIS TIME AND HAS CALL LIGHT IN REACH, PT IS COMFORTABLE IN BED AT THIS TIME.
--- NOTE | 2025-03-21 13:40 | NUR ---
PT ASSISTED OFF THE BSC TO THE CHAIR 1PA FWW PT TOLERATED WELL AND NEW PUREWICK PLACED, PT HAS NO CONCERNS AT THIS TIME AND IS IN ROOM WITH PT CALL LIGHT IN REACH.
--- NOTE | 2025-03-21 14:52 | NUR ---
UR DISCHARGE REVIEW: AWAITING CULTURE REPORTS TO ASSESS NEED FOR POST DC ABX DISCHARGE TO HOME WHEN MEDICALLY STABLE ADD PER MD 1-2 MORE DAYS NO ACTIONS REQUIRED
--- NOTE | 2025-03-21 15:08 | NUR ---
PT SITTING UP IN BED WITH PRESENT IN ROOM. PT HAS NO CURENT CONCERNS AT THIS TIME AND HAS CALL LIGHT IN REACH IF NEEDED.
--- NOTE | 2025-03-21 16:16 | NUR ---
PT SITTING UP IN BED, PT DENIES ANY NEEDS AT THIS TIME WITH CURRENTLY IN PT ROOM AT BEDSIDE, CALL LIGHT IN REACH IF NEEDED.
--- NOTE | 2025-03-21 18:00 | NUR ---
PT ALYING IN BED, PT HAS FAMILY IN ROOM AT THIS TIME AND DENIES ANY PAIN MEDICATIONS, PT HAS NO CONCERNS AND HAS CALL LIGHT IN REACH IF NEEDED.
--- NOTE | 2025-03-21 19:20 | NUR ---
REPORT RECEIVED FROM FARIDA BISHOP. pt RESTING IN THE BED. BOARD UPDATED. pt REQUESTING SCHEDULED MEDS. THIS RN MADE PLAN WITH pt TO BRING IN MED WHEN SCHEDULED. pt DENIES ANY OTHER NEEDS AT THIS TIME. CALL LIGHT WITHIN REACH.
--- NOTE | 2025-03-21 21:00 | NUR ---
ASSESSMENT AND VITAL SIGNS DONE. BG CHECKED WITH A RESULTS OF 173. SS INSULIN ADMINISTERED. SCHEDULDED MEDS ADMINISTERED. IV ASSESSED, WNL. pt DENIES ANY OTHER NEEDS AT THIS TIME. CALL LIGHT WITHIN REACH.
[2025-03-22] VITALS (10 sets, daily range): BP systolic 138–146; BP diastolic 70–82
--- NOTE | 2025-03-22 00:05 | NUR ---
pt RESTING IN THE BED WITH EYES CLOSED. RR EVEN AND UNLABORED. CALL LIGHT WITHIN REACH.
--- NOTE | 2025-03-22 01:49 | NUR ---
rounded on pt, pt resting in be dwith eyes closed. on ra, rr even and unlabored. no distress noted, pt appears comfortable and relaxed, call light in reach.primary rn updated.
--- NOTE | 2025-03-22 04:03 | NUR ---
pt RESTING IN THE BED. PURE WICK CANISTER EMPTIED. pt DENIES ANY OTHER NEEDS AT THIS TIME. NICOTINE PATCH REMOVED. CALL LIGHT WITHIN REACH.
[2025-03-22 05:43] LABS: MCH 25.4 PG (25.6-32.2); MCHC 31.1 g/dL (32.2-35.5); MCV 81.4 fL (79.4-94.8); RBC 3.55 M/uL (3.93-5.22)
[2025-03-22 05:56] LABS: GLOMERULAR FILTRATION RATE,EST 85.0 mL/min (>60); UREA NITROGEN 11.0 mg/dL (7-18)
[2025-03-22 06:06] LABS: BANDS, MANUAL DIFF 2; BASOPHILS, MANUAL DIFF 1; LYMPHOCYTES, MANUAL DIFF 19; MONOCYTES, MANUAL DIFF 5; NEUTROPHILS, MANUAL DIFF 73
--- NOTE | 2025-03-22 06:43 | NUR ---
ASSESSMENT AND VITAL SIGNS DONE. NEW PUREWICK PLACED. pt ABLE TO ROLL IN THE BED WITH MINIMAL ASSISTANCE. pt REPOSITIONED IN THE BED. pt DENIES ANY OTHER NEEDS AT THIS TIME. CALL LIGHT WITHIN REACH.
--- NOTE | 2025-03-22 07:28 | NUR ---
REPORT RECEIVED FROM EXERCISER HORSE EDAN BUENROSTRO. PATIENT IS LYING IN BED WITH EYES CLOSED AND RESPIRATIONS ARE EVEN AND UNLABORED. CALL LIGHT AND PERSONAL BELONGINGS ARE WITHIN REACH.
--- NOTE | 2025-03-22 08:30 | NUR ---
PATIENT NEEDED ASSISTANCE TO THE BEDSIDE PRASANNA ARTEAGA AND I CHANGED PATIENTS BEDDING AND GOWN, PUT A NEW PUREWICK IN. CALL LIGHT WITH IN REACH AND NOTHING ELSE NEEDED AT THIS TIME.
[2025-03-22] MEDS ORDERED: MAGNESIUM SULFATE 2 GM/50 ML BAG IV ONE (09:00)
--- NOTE | 2025-03-22 09:50 | NUR ---
VISITED DURING SPIRITUAL CARE ROUNDS. PT APPEARED TO BE SLEEPING. DID NOT DISTURB. PROVIDED PRAYER.
--- NOTE | 2025-03-22 10:20 | NUR ---
PATIENT IS LYING IN BED WITH EYES OPEN AND RESPIRATIONS ARE EVEN AND UNLABORED. PATIENT IS ON ROOM AIR AND LUNGS ARE CLEAR THROUGHOUT. PUREWICK IN PLACE WITH YELLOW URINE NOTED IN THE CANISTER. GENERALIZED WEAKNESS NOTED WITH SCATTERED BRUISING THROUGHOUT. PATIENT REPORTS NUMBNESS IN THE UPPER AND LOWER EXTREMITIES BILATERALLY AT BASELINE. PATIENT WITH FAINT PEDAL PULSES BILATERALLY. PATIENT REPORTED PAIN A 5/10 IN THE LOW BACK AND RIGHT HIP. PATIENT IS NOT REQUESTING ANYTHING FOR PAIN AT THIS TIME. PATIENT STATED NO FURTHER NEEDS. CALL LIGHT AND PERSONAL BELONGINGS ARE WITHIN REACH.
--- NOTE | 2025-03-22 10:25 | NUR ---
PATIENT IS LYING IN BED WITH HOB ELEVATED. PATIENT WITH EYES OPEN AND RESPIRATIONS ARE EVEN AND UNLABORED. CALL LIGHT AND PERSONAL BELONGINGS ARE WITHIN REACH.
--- NOTE | 2025-03-22 11:03 | NUR ---
PT LAYING IN BED, RR EVEN AND UNLABORED. PT STATES NO NEEDS AT THIS TIME. CALL LIGHT AND PERSONAL BELONGINGS ARE WITHIN REACH. TV IS ON.
--- NOTE | 2025-03-22 11:19 | NUR ---
MIDLINE SITE FLUSHED WITH 10 ML NORMAL SALINE AND IS SALINE LOCKED. MIDLINE TUBING TAPED IN A DIFERENT WAY PER PATIENT REQUEST. IV PUMP CLEARED OF INTAKE FLUID AND DOCUMENTED IN THE CHART. PATIENT STATED NO FURTHER NEEDS AT THIS TIME. CALL LIGHT AND PERSONAL BELONGINGS ARE WITHIN REACH.
--- NOTE | 2025-03-22 12:27 | NUR ---
PT SITTING UP IN CHAIR EATING LUNCH. PROVIDED EXTRA MAYONAISE PER PT REQUEST. CALL LIGHT AND PERSONAL BELONGINGS WITHIN REACH.
--- NOTE | 2025-03-22 13:50 | NUR ---
PT IN BED, TALKING ON THE PHONE. CALL LIGHT AND PERSONAL BELONGINGS WITHIN REACH.
--- NOTE | 2025-03-22 14:15 | NUR ---
PT IN BED WITH HOB ELEVATED, ON PHONE. CALL LIGHT AND PERSONAL BELONGINGS WITHIN REACH. RR EVEN AND UNLABORED.
--- NOTE | 2025-03-22 14:55 | NUR ---
PATIENT IS LYING IN BED WITH HOB ELEVATED. PATIENT WITH EYES OPEN AND RESPIRATIONS ARE EVEN AND UNLABORED. TV IS ON. PATIENT REPORTS PAIN IS 7/10 IN THE BACK AND RIGHT HIP. PATIENT RECEIVED OXYCODONE AT 1426. PATIENT IS NOT REQUESTING ANYTHING FOR PAIN AT THIS TIME. MIDLINE FLUSHED WITH 10 ML NORMAL SALINE AND IS SALINE LOCKED. IV DRESSING IS CLEAN, DRY, AND INTACT. PATIENT REPORTS PUREWICK WAS CHANGED A COUPLE HOURS AGO. URINE IN THE CANISTER IS YELLOW. PRASANNA DAVIS REPORTED CHANGING THE PUREWICK AT 1300. PATIENT STATED NO FURTHER NEEDS AT THIS TIME. CALL LIGHT AND PERSONAL BELONGINGS ARE WITHIN REACH.
--- NOTE | 2025-03-22 15:32 | NUR ---
INTO SEE PATIENT. PATIENT PLANS TO GO HOME WITH AT TIME OF DISCHARGE. NO FUTHER CM NEEDS.
--- NOTE | 2025-03-22 16:05 | NUR ---
PT LAYING IN BED. PT AWAKE, VISITING WITH AND DOG. RR EVEN AND UNLABORED. PROVIDED SALTINE CRACKERS PER PT REQUEST. NO OTHER NEEDS AT THIS TIME. CALL LIGHT AND PERSONAL BELONGINGS WITHIN REACH.
--- NOTE | 2025-03-22 16:47 | NUR ---
REPORT RECEIVED FROM LAMIN DUNBAR RN.
--- NOTE | 2025-03-22 17:04 | NUR ---
PT SITTING IN BED WITH HOB ELEVATED, IS BEING SET UP WITH DINNER TRAY. RR EVEN AND UNLABORED. PERSONAL BELONGINGS AND CALL LIGHT WITHIN REACH.
--- NOTE | 2025-03-22 17:52 | NUR ---
PATIENT IS IN HER BED AT THIS TIME, AERODYNAMIC CONSULTANT CHARTED VITALS AND I&O'S, CHANGED PATIENTS PUREWICK, CHANGED SHEETS GOT FRESH ICE WATER, CALL LIGHT WITH IN REACH AND NOTHING ELSE NEEDED AT THIS TIME.
--- NOTE | 2025-03-22 18:06 | NUR ---
PT LAYING IN BED, HEAD SLIGHTLY ELEVATED. RR EVEN AND UNLABORED. PRASANNA ROSE, IN ROOM REPORTS PUREWICK WAS JUST CHANGED. CALL LIGHT AND PERSONAL BELONGINGS WITHIN REACH.
--- NOTE | 2025-03-22 19:15 | NUR ---
REPORT RECEIVED FROM JOAQUIM BISHOP. pt RESTING IN THE BED. BOARD UPDATED. pt DENIES ANY OTHER NEEDS AT THIS TIME. CALL LIGHT WITHIN REACH.
--- NOTE | 2025-03-22 21:10 | NUR ---
ASSESSMENT AND VITAL SIGNS DONE. MIDLINE ASSESSED, WNL. SCHEDULED MEDS ADMINISTERED. pt C/O / PAIN. PRN PAIN MEDS ADMINISTERED. pt REPOSITIONED IN THE BED. WARM COMPRESS GIVEN ADN ICE PACK MADE FOR LEFT ARM. BG CHECKED WITH A RESULTS OF 165. SS INSULIN ADMINISTERED. pt DENIES ANY OTHER NEEDS AT THIS TIME. CALL LIGHT WITHIN REACH.
--- NOTE | 2025-03-22 22:00 | NUR ---
pt CALLED TO USE THE BSC. pt HAD A MED BM. pt BACK TO BED. 1PA WITH FWW. NEW PURE WICK PLACED. NEW ATTENDS PLACED ON pt. pt DENIES ANY OTHER NEEDS AT THIS TIME. CALL LIGHT WITHIN REACH.
--- NOTE | 2025-03-22 23:21 | NUR ---
PATIENT IS LAYING IN BED. PATIENT WAS PROVIDED WITH ICE AND ICE WATER. CALL LIGHT IS WITHIN REACH AND NO FURTHER NEEDS AT THIS TIME.
--- NOTE | 2025-03-23 00:01 | NUR ---
IN RM TO ASSESS pt PAIN. pt C/O 02/08 PAIN. pt STATES THAT IT IS TOLERABLE FOR NOW. NO OTHER NEEDS AT THIS TIME. CALL LIGHT WITHIN REACH.
--- NOTE | 2025-03-23 01:47 | NUR ---
pt RESTING IN THE BED WITH EYES CLOSED. RR EVEN AND UNLABORED. CALL LIGHT WITHIN REACH.
--- NOTE | 2025-03-23 03:09 | NUR ---
pt RESTING IN THE BED WITH EYES CLOSED. RR EVEN AND UNLABORED. CALL LIGHT WITHIN REACH.
[2025-03-23 05:48] LABS: MCH 24.7 PG (25.6-32.2); MCHC 30.3 g/dL (32.2-35.5); MCV 81.6 fL (79.4-94.8); RBC 3.76 M/uL (3.93-5.22)
[2025-03-23 06:08] VITALS: BP 158/85
[2025-03-23 06:10] LABS: ALT (SGPT) 6.0 U/L (14-59); AST (SGOT) 8.0 U/L (15-37); GLOMERULAR FILTRATION RATE,EST 95.0 mL/min (>60); PROTEIN, TOTAL 7.1 g/dL (6.4-8.2); UREA NITROGEN 12.0 mg/dL (7-18)
--- NOTE | 2025-03-23 06:10 | NUR ---
PATIENT IS IN BED. VITAL SIGNS AND I&OS WERE CONE. PATIENTS CALL LIGHT IS WITHIN REACH AND NO FURTHER NEEDS AT THIS TIME.
[2025-03-23 06:25] LABS: BANDS, MANUAL DIFF 2; BASOPHILS, MANUAL DIFF 2; LYMPHOCYTES, MANUAL DIFF 11; MONOCYTES, MANUAL DIFF 4; NEUTROPHILS, MANUAL DIFF 81
--- NOTE | 2025-03-23 07:14 | NUR ---
REPORT RECEIVED FROM DISPLAY FABRICATION SUPERVISOR RN PORTER. PATIENT IS LYING IN BED AND IS EATING A SNACK. PATIENT WITH EYES OPEN AND RESPIRATIONS ARE EVEN AND UNLABORED. PATIENT STATED NO FURTHER NEEDS AT THIS TIME. CALL LIGHT AND PERSONAL BELONGINGS ARE WITHIN REACH.
--- NOTE | 2025-03-23 09:03 | NUR ---
PRASANNA ROSE AND PRASANNA TAO ARE IN THE ROOM AT THIS TIME. PATIENT IS LYING IN BED WITH HOB ELEVATED. PATIENT WITH EYES OPEN AND RESPIRATIONS ARE EVEN AND UNLABORED. CALL LIGHT AND PERSONAL BELONGINGS ARE WITHIN REACH.
[2025-03-23 09:04] VITALS: BP 132/71
--- NOTE | 2025-03-23 09:10 | NUR ---
PATIENT IS IN HER BED AT THIS TIME, PATIENT WAS UP FOR BREAKFAST IN HER CHAIR, PRASANNA ROSE AND AISLINN CHARTED VITALS AND I&O'S. PATIENT NEEDED TO USE THE COMMODE, HAD A LARGE BM, GOT PATIENT BACK TO BED, HOT TEA AND FRESH ICE WATER. CHANGED BEDDING, CALL LIGHT WITH IN REACH AND NOTHING ELSE NEEDED AT THIS TIME.
--- NOTE | 2025-03-23 09:40 | NUR ---
PATIENT IS LYING IN BED WITH HOB FLAT WITH EYES CLOSED AND RESPIRATIONS ARE EVEN AND UNLABORED. FULL ASSESSMENT COMPLETE AND DOCUMENTED IN THE CHART. PATIENT IS ALERT AND ORIENTED TIMES 4. PATIENT IS WHEELCHAIR BOUND AT BASELINE. PATIENT IS ON ROOM AIR. PUREWICK IN PLACE AND DRAINING YELLOW URINE. MIDLINE DRESSING IS CLEAN, DRY, AND INTACT. MIDLINE IS SALINE LOCKED. NUMBNESS AND TINGLING NOTED TO THE BUE AND BLE. GENERALIZED WEAKNESS NOTED. SCATTERED BRUISING AND REDNESS TO THE ALEX AREA NOTED. PATIENT STATED NO FURTHER NEEDS AT THIS TIME. CALL LIGHT AND PERSONAL BELONGINGS ARE WITHIN REACH.
[2025-03-23 10:08] VITALS: BP 132/71
--- NOTE | 2025-03-23 10:13 | NUR ---
PT IN BED WITH HEAD ELEVATED, PLAYING ON PHONE. RR EVEN AND UNLABORED. PERSONAL BELONGINGS AND CALL LIGHT WITHN REACH.
--- NOTE | 2025-03-23 11:07 | NUR ---
PT LAYING IN BED TALKING ON PHONE. RR EVEN AND UNLABORED. CALL LIGHT AND PERSONAL BELONGINGS WITHIN REACH.
--- NOTE | 2025-03-23 11:20 | NUR ---
PT NOT AVAILABLE FOR VISIT. PROVIDED PRAYER.
--- NOTE | 2025-03-23 12:07 | NUR ---
INTO SEE PATIENT. PATIENT STILL TO GO HOME WITH AT TIME OF DISCHARGE. NO FUTHER CM NEEDS.
[2025-03-23 12:46] VITALS: BP 138/67
--- NOTE | 2025-03-23 13:03 | NUR ---
PT LAYING IN BED VISIING WITH DR. TALAMANTES AT THIS TIME; CALL LIGHT AND PERSONAL BELONGINGS WITHIN REACH. RR EVEN AND UNLABORED.
[2025-03-23] MEDS ORDERED: MICAFUNGIN100 MG IV (13:52)
[2025-03-23] MEDS ORDERED: NICODERM CQ1 EAC1 TOP (14:36)
[2025-03-23 14:45] VITALS: BP 138/67
[2025-03-23] MEDS ORDERED: MICONAZOLE NITRATE 1 EA BTL TOP SCH (21:00)
== END 2025-03-23 15:22 | disposition home or self-care (01) | DRG 871 ==
LOC: MS 09:36
PROVIDERS: Family Medicine; ADMIT Student in an Organized Health Care Education/Training Program; ATTEND Student in an Organized Health Care Education/Training Program
DX: B37.7 Candidal sepsis (principal); J18.9 Pneumonia, unspecified organism; L03.115 Cellulitis of right lower limb; B37.49 Other urogenital candidiasis; I10 Essential (primary) hypertension; E11.9 Type 2 diabetes mellitus without complications; G43.909 Migraine, unspecified, not intractable, without status migrainosus; K21.9 Gastro-esophageal reflux disease without esophagitis; M54.50 Low back pain, unspecified; G89.29 Other chronic pain; E78.5 Hyperlipidemia, unspecified; E87.6 Hypokalemia; E83.42 Hypomagnesemia; D75.839 Thrombocytosis, unspecified; K74.60 Unspecified cirrhosis of liver; F17.210 Nicotine dependence, cigarettes, uncomplicated; Z96.0 Presence of urogenital implants; E66.9 Obesity, unspecified; Z87.442 Personal history of urinary calculi; Z79.899 Other long term (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; Z88.5 Allergy status to narcotic agent; Z88.6 Allergy status to analgesic agent; Z88.8 Allergy status to other drugs, medicaments and biological substances; Z91.040 Latex allergy status; Z91.018 Allergy to other foods
CPT/HCPCS: 36415; 36569; 74177; 80048; 80053; 81001; 83735; 85007; 85025; 87040; 97162; 97166; A9270; C1751; J1650; J1815; J2248; J3475; Q9967

== ENCOUNTER 2025-05-14 05:55 | Day surgery (SDC) | payer BC, OTHER ==
[~2025-05-14] VITALS: Ht 152.4 cm; Wt 102.1 kg
[~2025-05-14 05:55] MED LIST changes: +LACTATED RINGER'S 1,000 ML IV SCH; +MICAFUNGIN100 MG IV; +NICODERM CQ1 EAC1 TOP; +OXYCODONE HCL5 MG PO; +TRULICITY0.75 MG/0. SUB-Q
[2025-05-14 06:09] VITALS: BP 139/62
[2025-05-14] MEDS ORDERED: LIDOCAINE HCL 1% 5 ML SDV INJ ONE (07:00)
[2025-05-14] MEDS ORDERED: CEFAZOLIN SODIUM 2 GM in SODIUM CHLORIDE 0.9% 100 ML IV SCH (07:00)
[2025-05-14] MEDS ORDERED: IBLOOD GLUCOSE TEST STRIP 1 EA TEST VI PRN ×2 (07:00→10:00)
--- NOTE | 2025-05-14 07:21 | NUR ---
MEDS WERE NOT IN EMAR AT TIME OF IV START.
--- NOTE | 2025-05-14 07:22 | NUR ---
MANOJ MAGUIRE IN TO TALK WITH PT DR MENDIETA IN TO TALK WITH PT.
[2025-05-14] MEDS ORDERED: LIDOCAINE HCL 2% 5 ML SDV ONE (07:23)
[2025-05-14] MEDS ORDERED: fentaNYL citrate 100 MCG/2 ML VIAL ONE ×3 (07:24→08:34)
[2025-05-14] MEDS ORDERED: HYDROmorphone HCL 1 MG/ML SYR IV PRN ×2 (07:30→10:00)
[2025-05-14] MEDS ORDERED: OXYCODONE/APAP 5/325 TAB PO PRN (07:30)
[2025-05-14] MEDS ORDERED: PHENAZOPYRIDINE HCL 100 MG TAB PO ONE (07:30)
[2025-05-14] MEDS ORDERED: LACTATED RINGER'S 1,000 ML IV ONE (08:59)
[2025-05-14] MEDS ORDERED: LABETALOL HCL 20 MG/4 ML VIAL ONE (09:16)
--- NOTE | 2025-05-14 09:18 | NUR ---
05/14/25 0918 Juliana Carmona 0908: PT ARRIVES TO PACU REACTIVE. REPORT RECEIVED FROM SURGEON, FILM PROCESSOR AND NETWORK INFRASTRUCTURE ARCHITECT. TACHO 0915: PT IS DROWSY, SHE INTETMITTENTLY MOANS, BUT DOES NOT ANSWER WHEN ASKED IF SHE IS IN PAIN.
[2025-05-14 09:42] VITALS: BP 134/85
--- NOTE | 2025-05-14 09:46 | NUR ---
0939- PT ARRIVES TO DAY SURGERY TREATMENT ROOM. PT REPORTS 10/10 PAIN AND NAUSEA. PLAN OF CARE DISCUSSED. PT ALSO REPORTS FEELING DIZZY AND ASKS TO LAY BACK. HOB DECREASED. PT REPORTS FEELING LIKE SHE MAY NEED TO VOID. PT IS EDUCATED ABOUT CATHETER USE IN CASE. PT RESTING WITH HER EYES CLOSED AT THIS TIME.
[2025-05-14] MEDS ORDERED: PHENAZOPYRIDINE HCL 100 MG TAB ONE (09:58)
[2025-05-14] MEDS ORDERED: PROCHLORPERAZINE EDISYLATE 10 MG/2 ML VIAL IV PRN (10:00)
[2025-05-14] MEDS ORDERED: fentaNYL citrate 50 MCG/ML SDV IV PRN (10:00)
[2025-05-14] MEDS ORDERED: NALOXONE HCL 0.4 MG SYR IV PRN (10:00)
--- NOTE | 2025-05-14 10:25 | NUR ---
UP TO BSC VOIDS APPROX 100MLS RED TINGED AND SMALL BM.
--- NOTE | 2025-05-14 10:31 | NUR ---
0955- ORDER VARIFIED WITH DR. MOON ON ZOFRAN. PT RECEIVED 4MG IN OR AND IS TO RECEIVE THE ADDITIONAL 8MG PER DR. MENDIETA. 1015- UNMEASURED VOID IN STRETCHER AT THIS TIME. PT IS TRANSFERED TO BEDSIDE COMMODE PER REQUEST. PT GOWN CHANGED AND BED CLEANED AND REMADE. PT REQUESTING TO SIT ON COMMODE. CALL LIGHT IN REACH. PT IS UNDERSTANDING OF PLAN OF CARE. PT WAS ABLE TO EAT SOME CRACKERS, JELLO AND SIPPING ON WATER. DR. MENDIETA IS OKAY WITH THE UNMEASURED VOID TO MEET DISCHARGE CRITERIA.
[2025-05-14 10:54] VITALS: BP 117/91
--- NOTE | 2025-05-14 10:55 | NUR ---
PAIN AT 8/10 PAIN WILL WAIT LONGER FOR MEDS TO WORK MORE.
[2025-05-14] MEDS ORDERED: ACETAMINOPHEN 1,000 MG/100 ML VIAL IV ONE (11:30)
--- NOTE | 2025-05-14 11:44 | NUR ---
CRYING IN PAIN R KNEE CALL TO DR MENDIETA AND SEE ORDERS . MED GIVEN ICE PACK R KNEE.
[2025-05-14 11:50] VITALS: BP 137/74
--- NOTE | 2025-05-14 11:51 | NUR ---
PT TOOK ICE PACK OFF.
--- NOTE | 2025-05-14 12:32 | NUR ---
1205 PT STATES OK WHEN TOLD I WOULD TAKE IV OUT AND GIVE HER DC INSTRUCTIONS. ASSISTED WITH DRESSING AND INTO WC TO BR VOIDEDS LARGE AMOUNT. PILLOW IN CHAIR AND JACKET ON. WHEN TAKING PT OUT STARTS YELLING YOU ARE HURRYING MY OUT THEN CRIES BRIEFLY THEN CALLS OSMAN TO COME GET HER WHO IS IN VAN. OSMAN ASSISTED HER INTO VAN. BELONGINGS GIVING.
--- NOTE | 2025-05-14 12:39 | NUR ---
1200 DC INSTRUCTIONS WERE ALL EXPLAINED AND COPY GIVEN. COMPUTER PRINT OUTS EXPLAINED AND COPY GIVEN ENC TO READ AT HOME. PT HAS BEEN HERE SEVERAL TIMES KNOWS ROUTINE. NO QUESTIONS.
--- NOTE | 2025-05-14 12:48 | NUR ---
1205 MOVES WELL. DOESNT COMPLAIN WHEN ASKED SHE RATES PAIN 8/10. HAS RECIEVED SEVERAL PAIN MEDS.
[2025-05-14] MEDS ORDERED: SEVOFLURANE 250 ML BTL INH ONE (15:42)
[2025-05-15] MEDS ORDERED: CEFAZOLIN SODIUM 2 GM in SODIUM CHLORIDE 0.9% 100 ML IV SCH (07:00)
== END 2025-05-14 12:05 | disposition home or self-care (01) ==
LOC: DS 05:55
PROVIDERS: ATTEND Urology
PROC: 0TC08ZZ Extirpation of Matter from Right Kidney, Via Natural or Artificial Opening Endoscopic (ICD-10-PCS; principal; 2025-05-14 07:30)
PROC: 0TC68ZZ Extirpation of Matter from Right Ureter, Via Natural or Artificial Opening Endoscopic (ICD-10-PCS; 2025-05-14 07:30)
PROC: 0T768DZ Dilation of Right Ureter with Intraluminal Device, Via Natural or Artificial Opening Endoscopic (ICD-10-PCS; 2025-05-14 07:30)
DX: N20.2 Calculus of kidney with calculus of ureter (principal); E11.9 Type 2 diabetes mellitus without complications; G47.33 Obstructive sleep apnea (adult) (pediatric); J45.20 Mild intermittent asthma, uncomplicated; E78.5 Hyperlipidemia, unspecified; F31.9 Bipolar disorder, unspecified; E66.01 Morbid (severe) obesity due to excess calories; Z68.43 Body mass index [BMI] 50.0-59.9, adult; Z98.84 Bariatric surgery status; Z79.85 Long-term (current) use of injectable non-insulin antidiabetic drugs; Z79.899 Other long term (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; Z88.5 Allergy status to narcotic agent; Z88.8 Allergy status to other drugs, medicaments and biological substances; Z91.040 Latex allergy status; Z90.49 Acquired absence of other specified parts of digestive tract; Z90.710 Acquired absence of both cervix and uterus
CPT/HCPCS: 00910; 74420; 74450; C1769; C2617; J0131; J0688; J2003; J2405; J2704; J3010; J7121; Q9958

== ENCOUNTER 2025-05-17 14:25 | Emergency (ER) | payer BC, OTHER ==
[~2025-05-17] VITALS: Ht 152.4 cm; Wt 107.3 kg
[~2025-05-17 14:25] MED LIST changes: -LACTATED RINGER'S 1,000 ML IV SCH
[2025-05-17 14:51] LABS: BASOPHILS 0.5 % (0.1-1.2); EOSINOPHILS 1.6 % (0.7-5.8); LYMPHOCYTES 13.3 % (19.3-51.7); MCH 25.3 PG (25.6-32.2); MCHC 30.5 g/dL (32.2-35.5); MCV 83.0 fL (79.4-94.8); MONOCYTES 5.7 % (4.7-12.5); NEUTROPHILS 77.5 % (34.0-71.1); RBC 3.95 M/uL (3.93-5.22)
[2025-05-17 15:05] LABS: ALT (SGPT) 16.0 U/L (14-59); AST (SGOT) 14.0 U/L (15-37); GLOMERULAR FILTRATION RATE,EST 60.0 mL/min (>60); PROTEIN, TOTAL 6.3 g/dL (6.4-8.2); UREA NITROGEN 12.0 mg/dL (7-18)
[2025-05-17 15:06] LABS: INR 1.01 (0.80-1.30); PROTIME 12.9 Sec (11.2-14.2)
[2025-05-17 15:08] LABS: LACTIC ACID, BLOOD 1.5 mmol/L (0.4-2.0)
[2025-05-17 16:07] LABS: BLOOD/HGB, URINE LARGE (Negative); KETONE, URINE NEGATIVE (Negative); LEUK ESTERASE, URINE LARGE (negative); NITRITE, URINE POSITIVE (negative)
[2025-05-17 16:13] LABS: CRYSTALS, URINE NONE SEEN (0-1+); EPITHELIAL CELLS, URINE SQUAMOUS 1+ /lpf (0-1+)
[2025-05-17 16:14] LABS: BACTERIA, URINE RARE /hpf (negative); CASTS, URINE NONE SEEN \\lpf; REFLEX CULTURE, URINE Yes (No)
[2025-05-17] MEDS ORDERED: CEPHALEXIN500 M1 PO (17:43)
[2025-05-17 18:07] VITALS: BP 122/67
== END 2025-05-17 18:07 | disposition home or self-care (01) ==
LOC: ED 14:25
PROVIDERS: Emergency Medicine
DX: L03.115 Cellulitis of right lower limb (principal); I10 Essential (primary) hypertension; J45.909 Unspecified asthma, uncomplicated; E11.9 Type 2 diabetes mellitus without complications; F17.200 Nicotine dependence, unspecified, uncomplicated; Z88.8 Allergy status to other drugs, medicaments and biological substances; Z88.6 Allergy status to analgesic agent; Z91.040 Latex allergy status; Z91.048 Other nonmedicinal substance allergy status; Z79.899 Other long term (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
CPT/HCPCS: 36415; 71045; 80053; 81001; 83605; 85025; 85060; 85610; 85730; 87040; 87088; 96365; 96366; 99283-25; J0696

== ENCOUNTER 2025-05-21 06:59 | Inpatient (IN) | payer BC, OTHER ==
[2025-05-21] VITALS (10 sets, daily range): BP systolic 111–133; BP diastolic 55–73
[~2025-05-21] VITALS: Ht 152.4 cm; Wt 103.3 kg
[2025-05-21 07:52] LABS: BASOPHILS 0.4 % (0.1-1.2); EOSINOPHILS 0.2 % (0.7-5.8); LYMPHOCYTES 11.9 % (19.3-51.7); MCH 25.6 PG (25.6-32.2); MCHC 31.2 g/dL (32.2-35.5); MCV 82.2 fL (79.4-94.8); MONOCYTES 6.5 % (4.7-12.5); NEUTROPHILS 79.0 % (34.0-71.1); RBC 3.59 M/uL (3.93-5.22)
[2025-05-21 08:15] LABS: ALT (SGPT) 24.0 U/L (14-59); AST (SGOT) 33.0 U/L (15-37); GLOMERULAR FILTRATION RATE,EST 35.0 mL/min (>60); PROTEIN, TOTAL 7.1 g/dL (6.4-8.2); UREA NITROGEN 26.0 mg/dL (7-18)
[2025-05-21] MEDS ORDERED: SODIUM CHLORIDE 0.9% 1,000 ML IV PRN (09:15)
[2025-05-21 10:42] LABS: BLOOD/HGB, URINE MODERATE (Negative); KETONE, URINE TRACE (Negative); LEUK ESTERASE, URINE LARGE (negative); NITRITE, URINE POSITIVE (negative)
[2025-05-21 10:51] LABS: CASTS, URINE NONE SEEN \\lpf; CRYSTALS, URINE NONE SEEN (0-1+); EPITHELIAL CELLS, URINE 0 /lpf (0-1+)
[2025-05-21 10:52] LABS: BACTERIA, URINE 2+ /hpf (negative); REFLEX CULTURE, URINE Yes (No)
[2025-05-21] MEDS ORDERED: PANTOPRAZOLE SODIUM 40 MG/10 ML VIAL IV ONE (11:00)
[2025-05-21 11:12] LABS: INR 1.08 (0.80-1.30); PROTIME 13.6 Sec (11.2-14.2)
[2025-05-21] MEDS ORDERED: DEXTROSE 50% 50 ML SYR IV PRN ×2 (11:45)
[2025-05-21] MEDS ORDERED: GLUCAGON,HUMAN RECOMBINANT 1 MG/ML VIAL SUB-Q PRN (11:45)
[2025-05-21] MEDS ORDERED: DEXTROSE 5% 1,000 ML IV PRN (11:45)
[2025-05-21] MEDS ORDERED: SODIUM CHLORIDE 0.9% 1,000 ML IV SCH (11:45)
[2025-05-21] MEDS ORDERED: IBLOOD GLUCOSE TEST STRIP 1 EA TEST XX PRN (11:45)
[2025-05-21] MEDS ORDERED: PHARMACY RENAL DOSE ADJUSTMENT 1 DOSE MISC PO SCH (12:00)
[2025-05-21 12:13] LABS: ABO O; RH POSITIVE
[2025-05-21 12:14] LABS: ANTIBODY SCREEN NEGATIVE
--- NOTE | 2025-05-21 12:31 | EKG ---
[facility] [address] [facility] [place] [address] Signed Sinus tachycardia Otherwise normal ECG When compared with ECG of 07-MAY-2025 14:01, No significant change was found Confirmed by Lawrence Talamantes MD () on 05/21/2025 12:31:26 PM Electronically Signed By: LAWRENCE TALAMANTES MD 05/21/25 1231 PATIENT NAME: MAGALIS BLACKMAN Electrocardiogram DATE OF : 72 PHYSICIAN: LAWRENCE TALAMANTES MD REPORT #: [id number] REPORT IS CONFIDENTIAL AND NOT TO BE RELEASED WITHOUT AUTHORIZATION
[2025-05-21] MEDS ORDERED: NICOTINE 14 MG/24 HR 1 EA TDSY TD PRN (12:45)
[2025-05-21] MEDS ORDERED: NICOTINE 14 MG/24 HR 1 EA TDSY TD SCH (12:55)
--- NOTE | 2025-05-21 13:42 | NUR ---
INTO SEE PATIENT. PERSONAL HEALTH INFORMATION REVIEWED. PATIENT LIVES AT HOME WITH NO STEPS INTO THE HOME. DENIES DIFFCULTY DOING THEM. PATIENT USES WALKER, WHEELCHAIR IN THE HOME. DOES NOT USE OXYGEN OR CPAP. DOES NOT DRIVE. DENIES ANY DIFFCULTY PAYING UTLITIES OR OBTAINING FOOD. PATIENT WILL GO HOME WITH WHEN MEDICALLY CLEARED FOR D/C.
[2025-05-21] MEDS ORDERED: Insulin Regular, Human 100 UNIT/ML ML SUB-Q SCH (14:00)
[2025-05-21] MEDS ORDERED: IBLOOD GLUCOSE TEST STRIP 1 EA TEST VI SCH (14:00)
[2025-05-21] MEDS ORDERED: PIPERACILLIN/TAZOBACTAM 4.5 GM in DEXTROSE 5% 100 ML IV SCH (14:00)
--- NOTE | 2025-05-21 14:19 | NUR ---
UR CLINICAL REVIEW: [facility] [place] MEETS INPT FOR DUODENITIS IV FLUIDS, NPO, ENDOSCOPY TO BE DONE, TREND LABS, ABDOMINAL PAIN, CT POSITIVE FOR DUODENITIS, IV ANTIBIOTICS RICHARDVALE [facility]ERRA SIMRAN PPO INPT 05/21/25 @ 1142 ORD MATCHES REG AUTH PENDING, WILL SEND CLINICALS IF REQUESTED. PLAN TO DC TO HOME WHEN MEDICALLY READY. DC REVIEW 05/22/2025
--- NOTE | 2025-05-21 15:15 | NUR ---
In with pt for IV Pump alarming, occlusion patient side. Pt states she needs to have a BM, was able to hold it while I brought the BSC to her. Pt pivot transfers to BSC with 1PA for Bm. Call light in reach.
--- NOTE | 2025-05-21 15:28 | NUR ---
In with pt for SBA as she transferred back to the chair using FWW from [facility]. Pt had large semi liquid BM (dark green in color) and medium unmeasured void. New Purewick applied at this time after billy care. BLE elevated, IVF running (Zosyn) per emar, chair alarm on. OT advised pt is a SBA pivot transfer from bed to chair. Pt states it hurts her back to stand up too long. Call light and bedside table with personal belongings in reach.
--- NOTE | 2025-05-21 17:38 | NUR ---
RNs Gracie and Yi here to transport pt to day surgery. LR on straight tubing is ready; however, pt is currently on zosyn. IV pump with Zosyn sent with pt. SCDs on. Pt scoot transferred to breanna amador. is waiting in room. VSS.
--- NOTE | 2025-05-21 18:25 | NUR ---
05/21/251824 Laury Luis 1807-PT ARRIVES TO PACU ON 4L VIA NC. PT IS AWAKE. PT IS COUGHING. SUCTION USED TO CLEAR SECRETIONS IN MOUTH. PT ENCOURAGED TO TAKE DEEP BREATHS. 1809-PT COUGHING. SUCTIONS USED TO CLEAR SECRETIONS. RESP EVEN AND UNLABORED. PT DENIED PAIN AND NAUSEA. 1819-PT RESTING. RESP EVEN AND UNLABORED. DENIES PAIN AND NAUSEA. PT ENCOURAGED TO TAKE DEEP BREATHS. 1823-PT DRWOSY. RESP EVEN AND UNLABORED. O2 TITRATED OFF. O2 SAT AT 98 ON RA. PT ENCOURAGED TO TAKE DEEP BREATHS.
--- NOTE | 2025-05-21 18:46 | NUR ---
Pt arrives to room via stretcher, transported by INFORMATION SECURITY DIRECTOR, at approximately 1837 hours. Pt is A&O x4. Pt sheet transferred by 3 staff from stretcher to bed. Pt immediately states she needs to use the commode and pivot transfer (sba) from bed to commode for BM/gas. VSS. Side rails up x4, call light in reach, family at bedside.
--- NOTE | 2025-05-21 19:10 | NUR ---
REPORT RECEIVED FROM TWYLA BISHOP. pt RESTING IN THE BED. BOARD UPDATED. pt REQUESTS HEAT PACK FOR LEFT KNEE AND LOWER BACK. HEAT PACK PROVIDED. pt DENIES ANY OTHER NEEDS AT THIS TIME. CALL LIGHT WITHIN REACH.
[2025-05-21] MEDS ORDERED: ACETAMINOPHEN 500 MG TAB PO PRN (19:45)
[2025-05-21] MEDS ORDERED: MORPHINE SULFATE 4 MG/ML VIAL IV PRN (20:45)
[2025-05-21] MEDS ORDERED: GABAPENTIN 400 MG CAP PO SCH (21:00)
[2025-05-21] MEDS ORDERED: PANTOPRAZOLE SODIUM 40 MG/10 ML VIAL IV SCH (21:00)
--- NOTE | 2025-05-21 21:00 | NUR ---
ASSESSMENT AND VITAL SIGNS DONE. pt GEORGE CHANGED. SCD'S ON. pt C/O 03/11 PAIN. PRN PAIN MEDS ADMINISTERED. SCHEDULED MEDS ADMINISTERED. BG CHECKED WITH A RESULTS OF 116. NO SS INSULIN NEEDED AT THIS TIME. pt NPO AT THIS TIME. pt DENIES ANY NEEDS AT THIS TIME. CALL LIGHT WITHIN REACH.
--- NOTE | 2025-05-21 23:07 | NUR ---
PATIENT ASKED FOR ICE PACK. PROVIDED 2 ICE PACKS.
--- NOTE | 2025-05-21 23:15 | NUR ---
CALL LIGHT ANSWERED, pt WANTING SLEEP MASK. MASK PROVIDED, WINDOW CURTAIN PULLED DOWN TO PROMOTE SLEEP. NO ADDITIONAL NEEDS OR CONCERNS VERBALIZED, CALL LIGHT IN REACH. SCD'S ALREADY IN PLACE.
[2025-05-22] VITALS (13 sets, daily range): BP systolic 125–141; BP diastolic 63–90
--- NOTE | 2025-05-22 01:48 | NUR ---
pt CALLED FOR A HEAT PACK. HEAT PACK PROVIDED. VITAL SIGNS DONE. BG CHECKED WITH A RESULTS OF 123. NO SS INSULIN NEEDED. NEW PURE WICK PLACED ON pt. pt C/O NERVE PAIN IN HER ELBOW. SCHEDULED GABAPENTIN ADMINISTERED ALREADY. pt pt DENIES ANY OTHER NEEDS AT THIS TIME. CALL LIGHT WITHIN REACH.
--- NOTE | 2025-05-22 02:56 | NUR ---
pt CALLED FOR A ICE PACK TO BE PUT BEHIND THE KNEE. pt C/O 03/11 PAIN. PRN PAIN MEDS ADMINISTERED. pt DENIES ANY OTHER NEEDS AT THIS TIME. CALL LIGHT WITHIN REACH.
--- NOTE | 2025-05-22 03:50 | NUR ---
pt CALLED FOR A WARM BLANKET. WARM BLANKET PROVIDED. pt DENIES ANY OTHER NEEDS AT THIS TIME. CALL LIGHT WITHIN REACH.
[2025-05-22 05:23] LABS: BASOPHILS 0.3 % (0.1-1.2); EOSINOPHILS 0.3 % (0.7-5.8); LYMPHOCYTES 16.1 % (19.3-51.7); MCH 25.7 PG (25.6-32.2); MCHC 31.2 g/dL (32.2-35.5); MCV 82.6 fL (79.4-94.8); MONOCYTES 8.6 % (4.7-12.5); NEUTROPHILS 72.7 % (34.0-71.1); RBC 3.34 M/uL (3.93-5.22)
[2025-05-22 05:36] LABS: SMEAR REVIEW BLOOD SEE COMMENTS
[2025-05-22 05:41] LABS: ALT (SGPT) 27.0 U/L (14-59); AST (SGOT) 53.0 U/L (15-37); GLOMERULAR FILTRATION RATE,EST 39.0 mL/min (>60); PHOSPHORUS, INORGANIC 2.6 mg/dL (2.5-4.9); PROTEIN, TOTAL 6.8 g/dL (6.4-8.2); UREA NITROGEN 23.0 mg/dL (7-18)
--- NOTE | 2025-05-22 06:14 | NUR ---
ASSESSMENT AND VITAL SIGNS DONE. pt RESTING IN THE BED. IV ABX INFUSING PER ORDER. pt DENIES ANY OTHER NEEDS AT THIS TIME. CALL LIGHT WITHIN REACH.
[2025-05-22] MEDS ORDERED: OXYCODONE HCL5 M1 PO (07:48)
--- NOTE | 2025-05-22 09:04 | NUR ---
pt irritable mood but redirectable, all cares explained prior to. IVF infusing RAC. Was incontinent of urine and bowel. purewick in place, was changed. stool large semisoft liquid, yellow and mucoid like. will get a sample next bm if same. bruised RU shoulder. New nicotine patch applied to R shoulder area. Red under breast, whitich cremish discharge, cleansed and dry towel applied. Pt on room air, lungs celar, denies CP or SOB with exertion. abd large, BECKI. LBM today. Pivot transsfer SBA/FWW to chair, tolerated well. declines to elevate legs. scds off. PT in room.
--- NOTE | 2025-05-22 09:05 | NUR ---
TAMMIE THE STUDENT AND SIDDHARTH THE NURSE WIPED UNDER PATIENT'S BREAST THAN PUT A PILLOW CASE TO PREVENT MOISTURE. DID ALEX CARE. PUT A NEW TAPED ATTEND ON AND CHANGED BED LINENS. PATIENT SET UP IN HER CHAIR FOR ABOUT AN HOUR.
--- NOTE | 2025-05-22 09:33 | NUR ---
pHARMACIST IN ROOM TALKING TO PT ABOUT HER MEDS. PT IN CHAIR, WILL MOVE TO BED IN A FEW MINUTES
[2025-05-22] MEDS ORDERED: WELLBUTRIN XL150 MG PO (09:40)
[2025-05-22] MEDS ORDERED: FLONASE ALLERG9.9 ML NAS (09:41)
--- NOTE | 2025-05-22 09:42 | NUR ---
MED REC COMPLETE
--- NOTE | 2025-05-22 09:53 | NUR ---
ALERT AND ORIENTED IN RECLINER. STATES SHE HAS NO CM NEEDS AT THIS TIME. WILL DC TO HOME WHEN MEDICALLY READY.
--- NOTE | 2025-05-22 10:08 | NUR ---
PT REQUESTING TO GO BACK TO BED. bACK TO BED 1PA/FWW. TOLERATED FAIR. ON ROOM AIR, C/O LEG PAIN DURING WALKING, LEGS WITH SLIGHT ECHYMOTIC COLORING WHEN UP, NO EDEMA, BACK TO NORMAL SKIN COLOR ON RETURN TO BED, ELEVATED. REQUESTING HOT PACKS, 2 HOT PACKS GIVEN. SCDS OFF AT THIS TIME
--- NOTE | 2025-05-22 10:23 | NUR ---
DC REVIEW: PATIENT TO DC TO HOME WITH FAMILIES NO BARRIERS TO DC NOTED ADD:1-2 DAY NO ACTIONS REQUIRED
--- NOTE | 2025-05-22 11:08 | NUR ---
PATIENT IN BED, CALL LIGHT AND PERSONAL BELONGINGS IN REACH. OT AT BEDSIDE.
--- NOTE | 2025-05-22 11:39 | NUR ---
PATIENT IN CHAIR, EYES CLOSED, CHEST RISE EVEN AND UNLABORED. CALL LIGHT AND PERSONAL BELONGINGS IN REACH OF PATIENT.
--- NOTE | 2025-05-22 11:59 | NUR ---
PATIENT UP IN CHAIR, CALL LIGHT AND PERSONAL BELONGINGS IN REACH.
--- NOTE | 2025-05-22 13:43 | NUR ---
PATIENT IN CHAIR, REQUESTS TO RETURN TO BED. ASSISTED PATIENT TO BED, PATIENT TOLERATED WELL. PATIENT REPORTS ABDOMINAL PAIN. PRN PAIN MEDICATION ADMINISTERED PER PATIENT REQUEST. CALL LIGHT AND PERSONAL BELONGINGS IN REACH OF PATIENT.
--- NOTE | 2025-05-22 15:26 | NUR ---
PATIENT IN BED, SURGICAL MD SNOW AT BEDSIDE. VERBAL ORDERS RECEIVED FROM MD TO ADVANCE DIET TOLERATED STARTING WITH CLEAR LIQUID. NO FURTHER ORDERS AT THIS TIME. CALL LIGHT AND PERSONAL BELONGINGS IN REACH OF PATIENT.
--- NOTE | 2025-05-22 16:00 | NUR ---
PATIENT IN BED, CLEAR LIQUIDS AT BEDSIDE. CALL LIGHT AND PERSONAL BELONGINGS IN REACH. EDUCATED PATIENT TO ADVANCE DIET SLOWLY AND IN SMALL AMOUNTS, PATIENT VERBALIZED UNDERSTANDING AND DENIES QUESTIONS.
[2025-05-22] MEDS ORDERED: IBLOOD GLUCOSE TEST STRIP 1 EA TEST VI SCH (17:00)
[2025-05-22] MEDS ORDERED: INSULIN LISPRO 100 UNIT/ML ML SUB-Q SCH (17:00)
--- NOTE | 2025-05-22 18:01 | NUR ---
ASSISTED PATIENT TO BEDSIDE COMMODE.
--- NOTE | 2025-05-22 18:51 | NUR ---
LIQUID STOOL 375 ML DOCUMENTED
--- NOTE | 2025-05-22 19:10 | NUR ---
REPORT RECEIVED FROM ELICEO BISHOP. pt RESTING IN THE BED. JELLO PROVIDED PER pt REQUEST. BOARD UPDATED. pt DENIES ANY OTHER NEEDS AT THIS TIME. CALL LIGHT WITHIN REACH.
--- NOTE | 2025-05-22 20:30 | NUR ---
ASSESSMENT AND VITAL SIGNS DONE. IV ASSESSED, WNL. pt SITTING ON THE EDGE OF THE BED TO EAT HER SANDWICH. SCHEDULED MEDS ADMINISTERED. BG CHEKED WITH A RESULTS OF 116. NO SS INSULIN NEEDED. NEW SOCKS AND NEW GOWN PROVIDED PER pt REQUEST. pt DENIES ANY OTHER NEEDS AT THIS TIME. CALL LIGHT WITHIN REACH.
--- NOTE | 2025-05-22 22:09 | NUR ---
pt CALLED TO USE THE BSC. pt HAD A BM. pt BACK TO BED. pt DENIES ANY OTHER NEEDS AT THIS TIME. CALL LIGHT WITHIN REACH.
[2025-05-22] MEDS ORDERED: OXYCODONE HCL 5 MG TAB PO PRN (22:30)
[2025-05-22] MEDS ORDERED: ACETAMINOPHEN 500 MG TAB PO PRN (22:30)
--- NOTE | 2025-05-23 00:17 | NUR ---
IN RM TO STOP IV ALARMING DISTAL OCCLUSION. pt RESTING IN THE BED. IV ASSESSED, WNL. pt HAS A VISITOR AT THIS TIME. CALL LIGHT WITHIN REACH.
[2025-05-23] MEDS ORDERED: MELATONIN 3 MG TAB PO PRN (01:00)
--- NOTE | 2025-05-23 01:49 | NUR ---
pt CALLED FOR ALARMING IV. DISTAL OCCLUSION. IV FIXED AND RESTARTED. pt DENIES ANY OTHER NEEDS AT THIS TIME. CALL LIGHT WITHIN REACH.
--- NOTE | 2025-05-23 02:50 | NUR ---
pt CALLED TO FOR HER IV SWELLING. THIS RN IN TO CHECK ON IV. IV ASSESSED, WNL. pt RESTING IN THE BED. pt DENIES ANY OTHER NEEDS AT THIS TIME. CALL LIGHT WITHIN REACH.
--- NOTE | 2025-05-23 04:17 | NUR ---
IN RM TO TAKE pt FLUIDS AWAY. pt IS NOW NPO FOR HER PROCEDURE SHE HAS LATER IN THE DAY. pt DENIES ANY OTHER NEEDS AT THIS TIME. CALL LIGHT WITHIN REACH.
[2025-05-23 04:49] VITALS: BP 117/77
[2025-05-23 04:51] VITALS: BP 117/77
[2025-05-23 05:30] LABS: BASOPHILS 0.3 % (0.1-1.2); EOSINOPHILS 0.8 % (0.7-5.8); LYMPHOCYTES 12.9 % (19.3-51.7); MCH 25.7 PG (25.6-32.2); MCHC 31.0 g/dL (32.2-35.5); MCV 83.1 fL (79.4-94.8); MONOCYTES 8.7 % (4.7-12.5); NEUTROPHILS 73.2 % (34.0-71.1); RBC 3.07 M/uL (3.93-5.22)
[2025-05-23 05:40] LABS: SMEAR REVIEW BLOOD SEE COMMENTS
[2025-05-23 05:48] LABS: ALT (SGPT) 27.0 U/L (14-59); AST (SGOT) 44.0 U/L (15-37); GLOMERULAR FILTRATION RATE,EST 49.0 mL/min (>60); PROTEIN, TOTAL 6.3 g/dL (6.4-8.2); UREA NITROGEN 21.0 mg/dL (7-18)
--- NOTE | 2025-05-23 06:09 | NUR ---
VITAL SIGNS AND ASSESSMENT DONE. pt HAS NEW GOWN PUT ON. IV ABX INFUSING PER ORDER. IVF INFUSING PER ORDER. pt FLUIDS TAKEN AWAY AT 0400 FOR SCHEDULED OP PROCEDURE. pt DENIES ANY OTHER NEEDS AT THIS TIME. CALL LIGHT WITHIN REACH.
[2025-05-23] MEDS ORDERED: POTASSIUM CHLORIDE 40 MEQ,LIDOCAINE HCL 1% 40 MG in DEXTROSE 5% 250 ML IV ONE (08:00)
--- NOTE | 2025-05-23 08:30 | NUR ---
PATIENT BED BATH COMPLETED BY PRASANNA
--- NOTE | 2025-05-23 08:46 | NUR ---
CALL CENTER SUPPORT REPRESENTATIVE AT BEDSIDE PREFORMING BED BATH. ASSESMENT COMPLETED, SCHEDULED MEDICATION ADMINISTERED. CALL LIGHT AND PERSONAL BELONGINGS IN REACH OF PATIENT.
--- NOTE | 2025-05-23 08:52 | NUR ---
RIGHT AC IV PRESENT SINCE ADMIT, DOCUMENTED ASSESMENT ABLE.
--- NOTE | 2025-05-23 08:59 | NUR ---
SPOKE WITH MD BRUNSON, VERBAL ORDERS RECEIVED TO INFUSE IV POTASSIUM UNTIL PATIENT IS DISCHARGED THEN DC REMAINING INFUSION. IV INFUSION STARTED AND INFUSING WITOUT DIFFICULTY. GOLF CART REPAIRER AT BEDSIDE, PATIENT IN CHAIR, CALL LIGHT IN REACH.
[2025-05-23 09:21] VITALS: BP 140/69
--- NOTE | 2025-05-23 09:48 | NUR ---
PATIENT DISCHARGING HOME TODAY. NO CM NEEDS.
--- NOTE | 2025-05-23 09:52 | NUR ---
ASSISTED PATIENT OFF COMMODE AND BACK TO CHAIR. CALL LIGHT IN REACH, FAMILY AT BEDSIDE, CLEANING PROFESSIONAL AT BEDSIDE.
[2025-05-23 09:53] VITALS: BP 140/69
[2025-05-23] MEDS ORDERED: CIPROFLOXACIN500 MG PO (10:16)
[2025-05-23] MEDS ORDERED: METRONIDAZOLE500 MG PO (10:18)
[2025-05-23 11:01] VITALS: BP 132/72
--- NOTE | 2025-05-23 11:30 | NUR ---
PATIENT OFF UNIT VIA WHEELCHAIR WITH SOCIAL SERVICES ANALYST. PATIENT'S DAUGHTER AND PROVIDED TRANSPORT FOR PATIENT VIA THEIR PROVATE VEHICLE. PATIENT PROVIDED WITH HER LUNCH "TO GO" PER PATIENT REQUEST. PATIENT VERBALIZED UNDERSTANDING OF DISCHARGE TEACHING AND DENIES QUESTIONS. VITAL SIGNS COMPLETED AND STABLE. IV DC'D WNL, CATHETER INTACT. PATIENT AND DAUGHTER CONFIRM PATIENT HAS ALL BELONGINGS INCLUDING CLOTHES, SHOES, BLANKETS, PERSONAL PHONE AND VIDEO GAME REPAIR TECHNICIAN, WALLET, KEYS, GLASSES, AND OTHER BELONGINGS.
--- NOTE | 2025-05-25 18:27 | PATH ---
[facility] [address] [place], [place] [address] Signed SPECIMEN(S): A ANTRUM/ANTRAL BIOPSY SPECIMEN SOURCE: A. ANTRUM/ANTRAL BIOPSY CLINICAL HISTORY: GI bleed, hiatal hernia, antral gastritis, duodenal ulcer esophagitis FINAL PATHOLOGIC DIAGNOSIS: Stomach, antrum, biopsy: - Gastric antral mucosa with mild nonspecific chronic inflammation. - No acute or active inflammation identified. - No H. pylori-like organisms identified on routine HE-stained histologic sections. - Negative for intestinal metaplasia, dysplasia, and malignancy. SDL MICROSCOPIC EXAMINATION: Histologic sections of all submitted blocks are examined by light microscopy. These findings, together with the gross examination, support the pathologic diagnosis. GROSS DESCRIPTION: The specimen, labeled and designated "Bakari, antrum biopsies," is received in formalin and consists of one kruse soft tissue fragment, 0.3 cm. Entirely submitted in (A1). VB (under the direct supervision of a pathologist) The Gross Description was prepared using a voice recognition system. The report was reviewed for accuracy; however, sound-alike word errors, addition and/or deletions may occur. If there are any questions about this report, please contact Client Services. ADDITIONAL NOTES: Immunohistochemical and/or in situ hybridization studies if performed in this case included appropriate positive controls that reacted as expected. This test was developed and its performance characteristics determined by [facility]. It has not been cleared or approved by the U.S. Food and Drug Administration. The FDA has determined that such clearance or approval is not necessary. This test is used for clinical purposes. It should not be regarded as investigational or for research. [facility] is certified under the PATIENT NAME: MAGALIS BLACKMAN PATHOLOGY DATE OF : 72 REPORT #: [id number] PHYSICIAN: MARBELLA PATHOLOGY PCP: ERIC PIERRE MD REPORT IS CONFIDENTIAL AND NOT TO BE RELEASED WITHOUT AUTHORIZATION [facility] [address] [place] [id number] Signed Clinical Laboratory Improvement Amendments of 1988 (CLIA) as qualified to perform high complexity clinical laboratory testing. PERFORMING LABORATORY: Technical component was performed by [facility], [address] [place] [id number] (CLIA# [id number]). Professional interpretation was performed by [facility], [address] [place] [id number] (CLIA#: [id number]). Diagnostician: Kadi Johnson MD Pathologist Electronically Signed 05/25/2025 Copies: ~ PATIENT NAME: MAGALIS BLACKMAN PATHOLOGY DATE OF : 72 REPORT #: [id number] PHYSICIAN: MARBELLA PATHOLOGY PCP: ERIC PIERRE MD REPORT IS CONFIDENTIAL AND NOT TO BE RELEASED WITHOUT AUTHORIZATION
== END 2025-05-23 11:30 | disposition home or self-care (01) | DRG 871 ==
LOC: ED 06:59 → MS 11:40
PROVIDERS: Emergency Medicine; Surgery; ADMIT Family Medicine; ATTEND Family Medicine
PROC: 0DB78ZX Excision of Stomach, Pylorus, Via Natural or Artificial Opening Endoscopic, Diagnostic (ICD-10-PCS; 2025-05-21)
PROC: 3E03329 Introduction of Other Anti-infective into Peripheral Vein, Percutaneous Approach (ICD-10-PCS; 2025-05-21)
PROC: 0DB98ZX Excision of Duodenum, Via Natural or Artificial Opening Endoscopic, Diagnostic (ICD-10-PCS; principal; 2025-05-21 17:30)
DX: A41.9 Sepsis, unspecified organism (principal); K20.91 Esophagitis, unspecified with bleeding; K26.4 Chronic or unspecified duodenal ulcer with hemorrhage; K29.81 Duodenitis with bleeding; K29.71 Gastritis, unspecified, with bleeding; N39.0 Urinary tract infection, site not specified; N17.9 Acute kidney failure, unspecified; C94.6 Myelodysplastic disease, not elsewhere classified; E11.9 Type 2 diabetes mellitus without complications; K74.60 Unspecified cirrhosis of liver; D64.89 Other specified anemias; F17.200 Nicotine dependence, unspecified, uncomplicated; I10 Essential (primary) hypertension; E78.00 Pure hypercholesterolemia, unspecified; J45.909 Unspecified asthma, uncomplicated; M79.7 Fibromyalgia; S80.01XA Contusion of right knee, initial encounter; W05.0XXA Fall from non-moving wheelchair, initial encounter; K44.9 Diaphragmatic hernia without obstruction or gangrene; Z96.0 Presence of urogenital implants; Z79.85 Long-term (current) use of injectable non-insulin antidiabetic drugs; Z71.6 Tobacco abuse counseling; Z91.040 Latex allergy status; Z88.8 Allergy status to other drugs, medicaments and biological substances; Z88.6 Allergy status to analgesic agent; Z79.84 Long term (current) use of oral hypoglycemic drugs; Y92.029 Unspecified place in mobile home as the place of occurrence of the external cause
CPT/HCPCS: 00813; 36415; 72220; 73560; 74176; 80053; 81001; 83605; 83690; 83735; 84100; 85025; 85060; 85610; 86850; 86900; 86901; 87077; 87088; 93005; 93010; 96361; 96374; 97161; 97166; 97530; 97535; 99285-25; A9270; J2270; J2470; J2543; J3480; J3490; J7030; J7060

== ENCOUNTER 2025-05-31 19:30 | Emergency (ER) | payer BC, OTHER ==
[~2025-05-31] VITALS: Ht 152.4 cm; Wt 103.3 kg
[~2025-05-31 19:30] MED LIST changes: +FLONASE ALLERG9.9 ML NAS; +OXYCODONE HCL5 M1 PO; +WELLBUTRIN XL150 MG PO
[2025-05-31 20:43] LABS: BASOPHILS 0.6 % (0.1-1.2); EOSINOPHILS 1.3 % (0.7-5.8); LYMPHOCYTES 17.6 % (19.3-51.7); MCH 24.9 PG (25.6-32.2); MCHC 29.9 g/dL (32.2-35.5); MCV 83.3 fL (79.4-94.8); MONOCYTES 5.4 % (4.7-12.5); NEUTROPHILS 71.5 % (34.0-71.1); RBC 4.01 M/uL (3.93-5.22)
[2025-05-31 21:01] LABS: ALT (SGPT) 7.0 U/L (14-59); AST (SGOT) 10.0 U/L (15-37); GLOMERULAR FILTRATION RATE,EST 68.0 mL/min (>60); PROTEIN, TOTAL 7.2 g/dL (6.4-8.2); UREA NITROGEN 9.0 mg/dL (7-18)
[2025-05-31 21:09] LABS: SMEAR REVIEW BLOOD SEE COMMENTS
[2025-06-01] MEDS ORDERED: MORPHINE SULFATE 4 MG/ML VIAL IV ONE ×2 (00:15→06:15)
[2025-06-01 03:20] LABS: BLOOD/HGB, URINE SMALL (Negative); KETONE, URINE NEGATIVE (Negative); LEUK ESTERASE, URINE SMALL (negative); NITRITE, URINE POSITIVE (negative)
[2025-06-01 03:26] LABS: BACTERIA, URINE RARE /hpf (negative); CASTS, URINE NONE SEEN \\lpf; CRYSTALS, URINE NONE SEEN (0-1+); EPITHELIAL CELLS, URINE SQUAMOUS 1+ /lpf (0-1+)
[2025-06-01 03:27] LABS: REFLEX CULTURE, URINE Yes (No)
[2025-06-01 03:57] LABS: LACTIC ACID, BLOOD 1.6 mmol/L (0.4-2.0)
[2025-06-01] MEDS ORDERED: FAMOTIDINE 20 MG/ 2 ML VIAL IV ONE (04:00)
--- NOTE | 2025-06-01 06:03 | EKG ---
[facility] [address] [facility] [place], [place] [address] Signed Normal sinus rhythm Cannot rule out Anterior infarct , age undetermined Abnormal ECG When compared with ECG of 31-MAY-2025 20:02, (Unconfirmed) Borderline criteria for Inferior infarct are no longer present Confirmed by DARIO ZAMUDIO MD ([id number]) on 06/01/2025 6:02:56 AM Electronically Signed By: DARIO ZAMUDIO 06/01/25 0603 PATIENT NAME: MAGLAIS BLACKMAN Electrocardiogram DATE OF : 72 PHYSICIAN: DARIO ZAMUDIO REPORT #: [id number] REPORT IS CONFIDENTIAL AND NOT TO BE RELEASED WITHOUT AUTHORIZATION
--- NOTE | 2025-06-01 06:03 | EKG ---
[facility] [address] [facility] [place], [place] [address] Signed Normal sinus rhythm Possible Inferior infarct , age undetermined Abnormal ECG When compared with ECG of 21-MAY-2025 07:48, Nonspecific T wave abnormality, worse in Inferior leads Confirmed by DARIO ZAMUDIO MD ([id number]) on 06/01/2025 6:02:47 AM Electronically Signed By: DARIO ZAMUDIO 06/01/25 0603 PATIENT NAME: MAGALIS BLACKMAN Electrocardiogram DATE OF : 72 PHYSICIAN: DARIO ZAMUDIO REPORT #: [id number] REPORT IS CONFIDENTIAL AND NOT TO BE RELEASED WITHOUT AUTHORIZATION
[2025-06-01] MEDS ORDERED: MAGNESIUM SULFATE 2 GM/50 ML BAG IV ONE (06:15)
[2025-06-01] MEDS ORDERED: PANTOPRAZOLE SODIUM 40 MG/10 ML VIAL IV ONE (06:15)
[2025-06-01] MEDS ORDERED: HEPARIN SOD,PORK IN 0.45% NACL 500 ML IV SCH ×3 (09:00→09:45)
[2025-06-01] MEDS ORDERED: HEParin SOD (PORCINE) 5,000 UNIT/ML SYR IV PRN ×3 (09:15)
[2025-06-01] MEDS ORDERED: HEParin SOD (PORCINE) 5,000 UNIT/ML SYR IV ONE ×2 (09:15→09:45)
[2025-06-01 10:56] LABS: BASOPHILS 0.4 % (0.1-1.2); EOSINOPHILS 1.6 % (0.7-5.8); LYMPHOCYTES 20.8 % (19.3-51.7); MCH 25.7 PG (25.6-32.2); MCHC 30.6 g/dL (32.2-35.5); MCV 83.8 fL (79.4-94.8); MONOCYTES 6.7 % (4.7-12.5); NEUTROPHILS 67.2 % (34.0-71.1); RBC 3.70 M/uL (3.93-5.22)
[2025-06-01 11:08] LABS: INR 1.22 (0.80-1.30); PROTIME 14.6 Sec (11.2-14.2)
[2025-06-01 11:16] VITALS: BP 145/77
== END 2025-06-01 11:10 | disposition short-term general hospital (02) ==
LOC: ED 19:30
PROVIDERS: Emergency Medicine; Internal Medicine
DX: I74.10 Embolism and thrombosis of unspecified parts of aorta (principal); M94.0 Chondrocostal junction syndrome [Tietze]; N39.0 Urinary tract infection, site not specified; E11.9 Type 2 diabetes mellitus without complications; I10 Essential (primary) hypertension; I21.9 Acute myocardial infarction, unspecified; J45.909 Unspecified asthma, uncomplicated; F17.200 Nicotine dependence, unspecified, uncomplicated; Z91.040 Latex allergy status
CPT/HCPCS: 36415; 71045; 71275; 74174; 74177; 80053; 81001; 83605; 83690; 83735; 83880; 84484; 85025; 85060; 85610; 85730; 87088; 93005; 93010; 96374; 96375; 96376; 99285-25; J0696; J1644; J2270; J2470; J3475; Q9967

== ENCOUNTER 2025-06-06 19:54 | Emergency (ER) | payer BC, OTHER ==
[~2025-06-06] VITALS: Ht 152.4 cm; Wt 95.0 kg
[2025-06-06] MEDS ORDERED: NITROGLYCERIN 0.4 MG SUBL SL PRN (20:15)
[2025-06-06] MEDS ORDERED: ELIQUIS5 MG PO (20:36)
[2025-06-06 20:37] LABS: BASOPHILS 0.7 % (0.1-1.2); EOSINOPHILS 1.3 % (0.7-5.8); LYMPHOCYTES 20.5 % (19.3-51.7); MCH 25.5 PG (25.6-32.2); MCHC 30.0 g/dL (32.2-35.5); MCV 85.0 fL (79.4-94.8); MONOCYTES 8.8 % (4.7-12.5); NEUTROPHILS 67.1 % (34.0-71.1); RBC 3.80 M/uL (3.93-5.22)
[2025-06-06 20:47] LABS: INR 1.05 (0.80-1.30); PROTIME 12.9 Sec (11.2-14.2)
[2025-06-06 20:53] LABS: SMEAR REVIEW BLOOD SEE COMMENTS
[2025-06-06 21:29] LABS: ALT (SGPT) 11.0 U/L (14-59); AST (SGOT) 14.0 U/L (15-37); GLOMERULAR FILTRATION RATE,EST 55.0 mL/min (>60); PROTEIN, TOTAL 8.3 g/dL (6.4-8.2); UREA NITROGEN 11.0 mg/dL (7-18)
[2025-06-06] MEDS ORDERED: APIXABAN 5 MG TAB PO ONE (21:45)
[2025-06-06] MEDS ORDERED: CYCLOBENZAPRINE10 MG PO (22:42)
[2025-06-06] MEDS ORDERED: CARAFATE1 GM PO (22:42)
[2025-06-06] MEDS ORDERED: MORPHINE SULFATE 4 MG/ML VIAL IV ONE (22:45)
[2025-06-06] MEDS ORDERED: LIDOCAINE & ANTACID 35 ML BTL PO ONE (22:45)
[2025-06-06] MEDS ORDERED: SUCRALFATE 1 GM TAB PO ONE (22:45)
[2025-06-06] MEDS ORDERED: PANTOPRAZOLE SODIUM 40 MG/10 ML VIAL IV ONE (22:45)
[2025-06-07 00:46] VITALS: BP 108/72
--- NOTE | 2025-06-07 22:43 | EKG ---
[facility] [address] [facility] [place] [address] Signed Sinus tachycardia Cannot rule out Anterior infarct (cited on or before 31-MAY-2025) Abnormal ECG When compared with ECG of 31-MAY-2025 22:31, Nonspecific T wave abnormality now evident in Lateral leads Confirmed by Lawrence Talamantes MD () on 06/07/2025 10:43:24 PM Electronically Signed By: LAWRENCE TALAMANTES MD 06/07/25 2243 PATIENT NAME: MAGALIS BLACKMAN Electrocardiogram DATE OF : 72 PHYSICIAN: LAWRENCE TALAMANTES MD REPORT #: [id number] REPORT IS CONFIDENTIAL AND NOT TO BE RELEASED WITHOUT AUTHORIZATION
== END 2025-06-07 00:15 | disposition home or self-care (01) ==
LOC: ED 19:54
PROVIDERS: Family Medicine
DX: R07.89 Other chest pain (principal); I10 Essential (primary) hypertension; E11.9 Type 2 diabetes mellitus without complications; J44.9 Chronic obstructive pulmonary disease, unspecified; Z79.01 Long term (current) use of anticoagulants
CPT/HCPCS: 36415; 71045; 80053; 83735; 84484; 85025; 85060; 85379; 85610; 93005; 93010; 96374; 96375; 99285-25; J2270; J2470

== ENCOUNTER 2025-06-15 15:54 | Emergency (ER) | payer BC, OTHER ==
[~2025-06-15] VITALS: Ht 152.4 cm; Wt 102.2 kg
[~2025-06-15 15:54] MED LIST changes: +ELIQUIS5 MG PO
[2025-06-15] MEDS ORDERED: SODIUM CHLORIDE 0.9% 1,000 ML IV ONE ×2 (16:15→18:45)
[2025-06-15 16:38] LABS: BASOPHILS 0.5 % (0.1-1.2); EOSINOPHILS 2.1 % (0.7-5.8); LYMPHOCYTES 8.3 % (19.3-51.7); MCH 25.3 PG (25.6-32.2); MCHC 30.2 g/dL (32.2-35.5); MCV 83.8 fL (79.4-94.8); MONOCYTES 2.4 % (4.7-12.5); NEUTROPHILS 81.9 % (34.0-71.1); RBC 4.31 M/uL (3.93-5.22)
[2025-06-15 16:55] LABS: ALT (SGPT) 11.0 U/L (14-59); AST (SGOT) 16.0 U/L (15-37); GLOMERULAR FILTRATION RATE,EST 52.0 mL/min (>60); PROTEIN, TOTAL 8.1 g/dL (6.4-8.2); UREA NITROGEN 14.0 mg/dL (7-18)
[2025-06-15 17:00] LABS: LACTIC ACID, BLOOD 1.8 mmol/L (0.4-2.0)
[2025-06-15 17:27] LABS: BLOOD/HGB, URINE LARGE (Negative); KETONE, URINE TRACE (Negative); LEUK ESTERASE, URINE LARGE (negative); NITRITE, URINE POSITIVE (negative)
[2025-06-15 17:38] LABS: EPITHELIAL CELLS, URINE SQUAMOUS 1+ /lpf (0-1+); REFLEX CULTURE, URINE Yes (No)
[2025-06-15 17:39] LABS: BACTERIA, URINE 1+ /hpf (negative)
[2025-06-15 17:48] LABS: INFLUENZA B NAA NEGATIVE (NEGATIVE); RESPIRATORY SYNCYTIAL VIR NAA NEGATIVE (NEGATIVE)
[2025-06-15 18:58] LABS: LACTIC ACID, BLOOD 2.2 mmol/L (0.4-2.0)
[2025-06-15] MEDS ORDERED: HYDROmorphone HCL 1 MG/ML SYR IV PRN (19:45)
[2025-06-15 20:56] LABS: LACTIC ACID, BLOOD 1.0 mmol/L (0.4-2.0)
[2025-06-15] MEDS ORDERED: GABAPENTIN 400 MG CAP PO ONE (21:45)
[2025-06-15 22:38] VITALS: BP 153/62
== END 2025-06-15 22:39 | disposition short-term general hospital (02) ==
LOC: ED 15:54
PROVIDERS: Emergency Medicine
DX: A41.9 Sepsis, unspecified organism (principal); N39.0 Urinary tract infection, site not specified; J45.909 Unspecified asthma, uncomplicated; I10 Essential (primary) hypertension; J44.9 Chronic obstructive pulmonary disease, unspecified; F17.200 Nicotine dependence, unspecified, uncomplicated; Z88.8 Allergy status to other drugs, medicaments and biological substances; Z91.040 Latex allergy status
CPT/HCPCS: 36415; 51701; 71045; 80053; 81001; 83605; 85025; 85060; 87040; 87088; 87502; 96365; 96366; 96375; 99285-25; J0696; J1171; J7030; U0002